=== PATIENT | male | born 1945 | race Caucasian/White ===

== ENCOUNTER 2020-07-11 14:01 | Inpatient (IN) ==
--- NOTE | 2020-07-11 14:26 | Emergency Department Note ---
Impression & Plan Hypoxia, Small cell lung 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, Atrial fibrillation, Hypotension, Elevated lactic acid level, Elevated brain natriuretic peptide (BNP) level ED Provider Note NAME: RHIANNA [id number] CRUTHKATT AGE: 75 SEX: M ARRIVES VIA: Ambulance INFORMANT: Patient, ED PROVIDER(S): Kris Plummer MD CHIEF COMPLAINT: Weakness, fall PLAN: Disposition: Admit MEDICAL DECISION MAKING: The patient is a pleasant 75-year-old gentleman, current inmate at [facility] with a past medical history of atrial fibrillation on Coumadin, COPD, diabetes, hyperlipidemia, schizophrenia, SCLC diagnosed on 05/28/2020 being treated with cisplatin/etoposide who presents emergency department for evaluation of worsening shortness of breath, generalized weakness, fatigue over the past several days with recurrent falls in his cell that happened today in the setting of having his last chemotherapy session on Wednesday. He denies any fevers, chills, vomiting, diarrhea, urinary symptoms. He reports he has a mild cough which is typical for what he has had recently. He denies any known exposures to COVID-19 where he is located at [facility]. On arrival the patient is acute on chronically ill-appearing, afebrile stable vital signs. He appears clinically dry. He has scattered wheezes throughout with increased rhonchi of right lung field. Abdomen is benign. There is mild tenderness of the lateral aspect of the left hip. Full range of motion is intact however causes discomfort. EKG demonstrates atrial fibrillation with frequent V paced complexes without overt acute ischemia. Chest x-ray demonstrates the patient's known 7 cm right infrahilar mass. WBC 11.8, nonspecific. ANC is 10.8. There is mild lymphopenia at 0.86. H/H 13.3/30.5 approximate 2 prior range of values. INR is slightly subtherapeutic at 1.9. VBG is unremarkable. Chemistry without metabolic acidosis. BUN/creatinine> 20 consistent with the patient's clinically dry appearance. Her lactate is 2.3. Phosphorus 2.3 and electrolytes otherwise unremarkable. Total bilirubin 1.7 with direct bilirubin 0.4, nonspecific given the patient has no abdominal pain. Troponin negative/undetectable. Troponin negative/undetectable. BNP 10 K, without prior for comparison and of unclear significance in the setting of the patient's A. fib and lung cancer. Lipase within normal limits. Procalcitonin<0.05 making sepsis less likely. COVID-19 RNA, NAAT test was negative. CTA of the chest was performed and was negative for PE. There are no focal infiltrates. CT of the abdomen pelvis demonstrates enlargement of pancreatic cystic lesion suggestive of neoplasm. On reevaluation the patient was reporting chest pain when he was still lying supine from his CT scan but this improved when he was set up. I performed a limited bedside cardiac ultrasound which was severely limited due to suboptimal views and mostly nondiagnostic. There was no overt pericardial fluid. IVC with >50% respiratory variability, which was after 1 L IV fluid hydration during his ED observation, which given the patient's presentation suggests a component of intravascular depletion. However, given the patient's elevated BNP and CT findings, which demonstrated reflux of contrast in the IVC and hepatic veins suggestive of cardiac dysfunction, suspicion for possible component of new heart failure/cardiomyopathy. Moreover the patient continued to appear dyspneic with minimal exertion and would desaturate to 87-88% and so was placed on 2 L nasal cannula. The patient's blood pressure did stabilize s ubsequently 100-120s/60-80s. Patient is agreeable with plan for admission for further management/evaluation. Case was discussed with Dr. Gardiner, [facility] hospitalist, who will evaluate the patient for admission. Triage Nursing notes reviewed and agree them. Prior medical records reviewed Vital Signs: reviewed and remarkable for hypotension. Differential diagnosis: Reactive airway disease, pneumonia, pneumothorax, COPD, CHF, infections, cardiac ischemia, pulmonary embolism, musculoskeletal, gastrointestinal, as well as ot her pathologies. ER treatment provided: Infection, dehydration, metabolic abnormality, hypo/hyperglycemia, electrolyte disturbance, anemia, hypoxia, cardiac sources, intracerebral event, toxicologic, neurologic, as well as other pathologies. Diagnostics interpreted by me: ECG: Atrial fibrillation, 85 bpm, frequent V paced complexes, no overt acute ischemia. Cardiac Monitoring: An order for continuous cardiac monitoring was placed and demonstrated Atrial fibrillation, 85 bpm, frequent V paced complexes. Laboratory studies: See below Imaging studies: XR chest 1V portable CLINICAL HISTORY: SEPSIS COMPARISON STUDY: 05/10/2020 FINDINGS: The heart is normal in size. There is a left subclavian dual-chamber central venous pacemaker present.[There is a 7 cm right infrahilar mass, consistent with the patient's known neoplasm. There is no acute parenchymal consolidation. There is no failure. There are no pleural effusions. IMPRESSION: 1. 7 cm right infrahilar mass, consistent with neoplasm. --- CT ANGIOGRAM OF THE CHEST CLINICAL HISTORY: Sepsis. COMPARISON STUDY: Chest x-ray dated 07/11/2020. Chest CT scans dated 06/10/2020 and 02/22/2020. TECHNIQUE: Following the IV administration of 120 cc of Optiray 320, CT angiogram of the chest was performed from the upper abdomen to the thoracic inlet utilizing the pulmonary embolus protocol. Images are reviewed in the axial, sagittal, and coronal planes. 3-D MIPS images are created and assessed. IV contrast was administered without complication. A dose lowering technique was utilized adhering to the principles of ALARA. FINDINGS: Thyroid: Imaged portions of the thyroid gland are normal in size and attenuation. Thoracic aorta: There is atherosclerotic calcification of the thoracic aorta, which is normal in caliber and demonstrates standard 3-vessel arch anatomy. No dissection is seen. Pulmonary vasculature: The pulmonary trunk is normal in caliber. There are no filling defects identified in main, lobar, or segmental pulmonary branches to suggest pulmonary embolus. Heart: A 2-lead cardiac pacemaker is present in the left chest wall. The heart is normal in size and without pericardial effusion. The coronary arteries are densely calcified. Reflux of contrast in the IVC and hepatic veins suggests cardiac dysfunction. Lungs and pleural spaces: Advanced emphysematous change is similar to previous. There is no airspace consolidation typical for pneumonia or pleural effusion. A mass in the infrahilar right lower lobe is similar in appearance to 06/10/2020 examination. This measures 6.1 x 7.0 x 6.1 cm. This encases and occludes several right lower lobe bronchi. Postobstructive consolidation is seen in the superior segment right lower lobe. Minimal secretions are noted in the distal trachea. Mild diffuse peribronchial thickening is observed. A 3 mm pleural-based nodule in the right middle lobe on image #115 is unchanged. Mediastinum: Enlarged right subcarinal node has increased in size from previous, measuring 5.1 x 4.2 cm. A precarinal node on image #199 measures 1.7 cm in short axis. [place]: There is right hilar adenopathy. A node on image #187 measures 2.8 x 2.5 cm. There are also mildly enlarged right infrahilar lymph nodes. No left hilar adenopathy is seen. Axillae: There is no axillary lymphadenopathy. Upper abdomen: Partially visualized upper abdominal viscera is within normal limits. Skeletal structures: The skeletal structures are osteopenic. Compression deformities of T12 and L1 are similar to previous. Paravertebral edema suggests that these are subacute. No lytic or blastic bony lesions are seen. Soft tissues: Gynecomastia is noted. IMPRESSION: 1. There is no evidence of pulmonary embolus in the main, lobar, or segmental pulmonary arteries. 2. There is no airspace consolidation typical for pneumonia or pleural effusion. 3. Advanced emphysema and a right lower lobe lung mass are similar in appearance to the 06/10/2020 examination. 4. Mediastinal and right hilar adenopathy are again noted and consistent with fercho metastatic disease. 5. Compression fractures of T12 and L1 are similar in appearance to previous. Paravertebral edema suggests that these are subacute. Clinical correlation will be required. 5. Additional findings as above. -- CT abd pelvis IV con only CLINICAL HISTORY: Lung carcinoma. Abdominal pain. Trauma. COMPARISON STUDY: 06/10/2020 TECHNIQUE: The patient was scanned in a dynamic helical fashion during intravenous and ministration 120 cc of Optiray 320 A dose lowering technique was utilized adhering to the principles of ALARA. CT DOSE: 887.60 mGy.cm FINDINGS: Lower chest: There is pulmonary emphysema. There is basilar atelectasis. There are no significant pleural effusions. Liver: There is a stable 4 mm right hepatic lobe hypodensity, likely representing a cyst. Gallbladder: Unremarkable. Spleen: Normal in size and attenuation. Pancreas: There is persistent pancreatic ductal dilatation. There is a multicystic 37 mm pancreatic head lesion, similar to the preceding study. Adrenal glands: Unremarkable. Kidneys: There is symmetric renal cortical enhancement. The kidneys are normal in size without hydronephrosis. Bowel: There is moderate fecal retention. There are nondilated fluid-filled small bowel loops. There are no transition zones to indicate bowel obstruction. There is no evidence of acute diverticulitis. By history the appendix is surgically absent. Peritoneum: There is no intraperitoneal free air or abdominal ascites. Vasculature: The abdominal aorta is normal in course and caliber. There are moderate aortoiliac atheromatous changes. Adenopathy: None. Pelvic viscera: There is mild bladder distention. Skeletal structures: There is a stable sclerotic focus involving the cecal aspect of the right SI joint. Degenerative changes are present within the spine. T12 and L1 compression fractures are redemonstrated. IMPRESSION: 1. Slight interval enlargement in the size of a 37 mm septated cystic lesion involving the pancreatic head with associated pancreatic ductal dilatation. 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 Further workup is advocated. 2. No evidence of bowel obstruction. No evidence of free air 3. Moderate fecal retention 4. No evidence of intra-abdominal or pelvic metastatic disease 5. Redemonstration of T12 and L1 vertebral body compression fractures Consultation(s): Case was discussed with Dr. Gardiner, [facility] hospitalist, who will evaluate the patient for admission. HPI: The patient is a pleasant 75-year-old gentleman, current inmate at [facility] with a past medical history of atrial fibrillation on Coumadin, COPD, diabetes, hyperlipidemia, schizophrenia, SCLC diagnosed on 05/28/2020 being treated with cisplatin/etoposide who presents emergency department for evaluation of worsening generalized weakness, fatigue, recurrent falls in his cell that happened today in the setting of having his last chemotherapy session on Wednesday. He denies any fevers, chills, vomiting, diarrhea, urinary symptoms. He reports he has a mild cough which is typical for what he has had recently. He denies any known exposures to COVID-19 where he is located at [facility]. ROS: See above HPI for pertinent positives & negatives. A total of 10 systems reviewed and were otherwise negative. PAST MEDICAL HISTORY:See Below PAST SURGICAL HISTORY:See Below FAMILY HISTORY:See Below SOCIAL HISTORY:See Below HOME MEDICATIONS:See Below ALLERGIES:See Below VITALS:See Below PHYSICAL EXAMINATION: GENERAL: Awake, alert, acute on chronically ill-appearing, in no distress HENT: Normocephalic, atraumatic. Oropharynx with dry mucous membranes and otherwise unremarkable. EYES: Normal conjunctiva. Sclera non-icteric. NECK: Supple. No nuchal rigidity. FROM. No JVD. RESPIRATORY: Scattered wheezes throughout with increased rhonchi of right lung field. Mildly dyspneic. CARDIAC: Regular rate, normal rhythm. Extremities warm and well perfused. Pulses equal. ABDOMEN: Soft, non-distended. No tenderness to palpation. No rebound or guarding. No masses. RECTAL: Deferred. MUSCULOSKELETAL: Chest examination reveals no tenderness. The back is symmetrical on inspection without obvious abnormality. There is no CVA tenderness to palpation. No joint edema. LOWER EXTREMITIES: Calves are equal size bilaterally and non-tender. No edema. No discoloration. NEURO: Normal sensorium. No sensory or motor deficits noted. SKIN: No rash or jaundice noted. ED COURSE: Procedures: Limited Point of Care Cardiac Ultrasound performed by me: Indication: Shortness of breath, hypotension. Findings: Limited echocardiography. Suboptimal views, mostly nondiagnostic. No overt pericardial fluid. IVC with >50% respiratory variability. Impression: Limited evaluation. No overt pericardial effusion. IVC with >50% respiratory variability. Kris Plummer MD Past Med/Surg History Medical History Anxiety Atrial fibrillation ANTICOAGULATED WITH COUMADIN Chronic obstructive pulmonary disease Hyperlipidemia Hypertension Inmate in correctional facility Nocturia Phlebitis DEEP LOWER EXTREMITY. Pulmonary mass Sick sinus syndrome s/p insertion of PPM 06/02/16 Syncope Implantation of dual-chamber [employer] pacemaker 06/02/2016 Surgical History History of appendectomy History of tonsillectomy Status post biventricular cardiac pacemaker insertion 2015. Has followed with Dr. Calle. Social History Smoking Status: Current every day smoker Age Started Using Tobacco: 11; Age Quit Using Tobacco: 55; packs per day: 1; Years Smoked: 44; Cigarettes Per Day: 20; Number of Years Since Quit: 20; Second Hand Exposure: Yes; Hx Alcohol Use: No Hx Substance Use: No Preferred Language: Portuguese Visual Impairment: No Limitations Hearing Ability: Normal Video Producer Required: No Beliefs That Will Affect Care: None marital status: Single Current Living Situation: Other Current Living Situation Comment: [facility] inmate current occupational status: unemployed Feels Safe at Home: Yes caffeine: No during the past year weight has: remained stable Dental Care, Regularly: No Seatbelt Use: always Sunscreen Use: No Assistive Devices: Denture - Upper, Denture - Lower and Glasses Allergies Allergies Allergy/AdvReac Type Severity Reaction Status Date / Time No Known Allergies Allergy Verified 07/11/20 18:10 Home Meds Home Medications Medication Instructions Recorded Confirmed Alvesco 2 puff INHALATION BID 05/09/20 07/11/20 Senna Plus 2 tab-cap PO DAILY 05/09/20 07/11/20 Spiriva with HandiHaler 1 cap INHALATION DAILY 05/09/20 07/11/20 atorvastatin 20 mg PO HS 05/09/20 07/11/20 benztropine 1 mg PO DAILY 05/09/20 07/11/20 haloperidol 1 mg PO BID 05/09/20 07/11/20 haloperidol 2 mg PO BID 05/09/20 07/11/20 hydroxyzine HCl 25 mg PO BID 05/09/20 07/11/20 levalbuterol tartrate [Xopenex HFA] 2 inh INHALATION QID PRN 05/09/20 07/11/20 montelukast 10 mg PO DAILY 05/09/20 07/11/20 propranolol 40 mg PO BID 05/09/20 07/11/20 tamsulosin 0.4 mg PO HS 05/09/20 07/11/20 warfarin 2 mg tablet 2 mg PO DAILY 07/08/20 07/11/20 Results & Data (ED) Vital Signs Vital Signs - 24 hr 07/11/20 14:11 07/11/20 14:22 07/11/20 14:30 Temperature 36.9 C Temperature Source Oral Pulse Rate 89 91 H 90 Pulse Rate from SpO2 Sensor 76 83 Respiratory Rate 18 11 L 13 Respiratory Effort / Characteristics Non-Labored Spontaneous Respiratory Depth Normal Blood Pressure 86/65 L 90/65 L 91/71 L Blood Pressure Mean 72 68 76 Pulse Oximetry 95 92 94 Oxygen Delivery Method Room Air Oxygen Flow Rate Sepsis Recent Fever Within 48 Hours No Sepsis New/Unexplained Change in Mental Status No Sepsis Action Taken by Nursing No Action Required Oxygen Flow Rate - Titration Pulse Oximetry Post Tiitration 07/11/20 14:45 07/11/20 15:00 07/11/20 15:04 Temperature Temperature Source Pulse Rate 93 H 95 H Pulse Rate from SpO2 Sensor 86 86 Respiratory Rate 18 13 Respiratory Effort / Characteristics Non-Labored Spontaneous Respiratory Depth Blood Pressure 96/70 L 96/75 L Blood Pressure Mean 81 77 Pulse Oximetry 94 95 Oxygen Delivery Method Room Air Oxygen Flow Rate Sepsis Recent Fever Within 48 Hours Sepsis New/Unexplained Change in Mental Status Sepsis Action Taken by Nursing Oxygen Flow Rate - Titration Pulse Oximetry Post Tiitration 07/11/20 15:15 07/11/20 15:30 07/11/20 15:45 Temperature Temperature Source Pulse Rate 108 H 73 72 Pulse Rate from SpO2 Sensor 95 H 72 73 Respiratory Rate 13 20 13 Respiratory Effort / Characteristics Non-Labored Spontaneous Respiratory Depth Blood Pressure 90/68 L 108/69 95/69 L Blood Pressure Mean 78 88 74 Pulse Oximetry 93 94 94 Oxygen Delivery Method Room Air Room Air Room Air Oxygen Flow Rate Sepsis Recent Fever Within 48 Hours Sepsis New/Unexplained Change in Mental Status Sepsis Action Taken by Nursing Oxygen Flow Rate - Titration Pulse Oximetry Post Tiitration 07/11/20 16:00 07/11/20 16:15 07/11/20 16:30 Temperature Temperature Source Pulse Rate 73 77 76 Pulse Rate from SpO2 Sensor 71 76 77 Respiratory Rate 13 13 14 Respiratory Effort / Characteristics Non-Labored Spontaneous Non-Labored Spontaneous Respiratory Depth Blood Pressure 102/69 97/59 L 90/69 L Blood Pressure Mean 76 67 75 Pulse Oximetry 96 95 94 Oxygen Delivery Method Room Air Room Air Room Air Oxygen Flow Rate Sepsis Recent Fever Within 48 Hours Sepsis New/Unexplained Change in Mental Status Sepsis Action Taken by Nursing Oxygen Flow Rate - Titration Pulse Oximetry Post Tiitration 07/11/20 17:00 07/11/20 17:17 07/11/20 17:30 Temperature Temperature Source Pulse Rate 83 80 81 Pulse Rate from SpO2 Sensor 84 81 82 Respiratory Rate 10 L 14 20 Respiratory Effort / Characteristics Non-Labored Spontaneous Non-Labored Spontaneous Respiratory Depth Blood Pressure 103/71 101/66 105/73 Blood Pressure Mean 77 73 85 Pulse Oximetry 95 93 Oxygen Delivery Method Room Air Room Air Room Air Oxygen Flow Rate Sepsis Recent Fever Within 48 Hours Sepsis New/Unexplained Change in Mental Status Sepsis Action Taken by Nursing Oxygen Flow Rate - Titration Pulse Oximetry Post Tiitration 07/11/20 17:44 07/11/20 17:45 07/11/20 18:00 Temperature Temperature Source Pulse Rate 79 88 Pulse Rate from SpO2 Sensor 80 85 Respiratory Rate 14 22 Respiratory Effort / Characteristics Non-Labored Spontaneous Respiratory Depth Blood Pressure 114/79 124/83 Blood Pressure Mean 89 97 Pulse Oximetry 87 L 98 Oxygen Delivery Method Nasal Cannula Nasal Cannula Nasal Cannula Oxygen Flow Rate 0 2 2 Sepsis Recent Fever Within 48 Hours Sepsis New/Unexplained Change in Mental Status Sepsis Action Taken by Nursing Oxygen Flow Rate - Titration 2 Pulse Oximetry Post Tiitration 94 07/11/20 18:15 07/11/20 18:30 07/11/20 18:45 Temperature Temperature Source Pulse Rate 81 82 81 Pulse Rate from SpO2 Sensor 82 81 75 Respiratory Rate 15 14 15 Respiratory Effort / Characteristics Non-Labored Spontaneous Respiratory Depth Blood Pressure 99/72 L 97/77 L 102/76 Blood Pressure Mean 76 88 87 Pulse Oximetry 99 98 98 Oxygen Delivery Method Nasal Cannula Nasal Cannula Nasal Cannula Oxygen Flow Rate 2 2 2 Sepsis Recent Fever Within 48 Hours Sepsis New/Unexplained Change in Mental Status Sepsis Action Taken by Nursing Oxygen Flow Rate - Titration Pulse Oximetry Post Tiitration 07/11/20 19:00 07/11/20 19:15 07/11/20 19:30 Temperature Temperature Source Pulse Rate 78 77 82 Pulse Rate from SpO2 Sensor 80 77 81 Respiratory Rate 14 15 12 Respiratory Effort / Characteristics Non-Labored Spontaneous Non-Labored Spontaneous Respiratory Depth Blood Pressure 113/79 105/77 113/79 Blood Pressure Mean 83 87 90 Pulse Oximetry 97 97 93 Oxygen Delivery Method Nasal Cannula Nasal Cannula Room Air Oxygen Flow Rate 2 2 Sepsis Recent Fever Within 48 Hours Sepsis New/Unexplained Change in Mental Status Sepsis Action Taken by Nursing Oxygen Flow Rate - Titration Pulse Oximetry Post Tiitration 07/11/20 19:45 07/11/20 20:00 07/11/20 20:15 Temperature Temperature Source Pulse Rate 79 86 78 Pulse Rate from SpO2 Sensor 80 83 78 Respiratory Rate 14 12 15 Respiratory Effort / Characteristics Non-Labored Spontaneous Respiratory Depth Blood Pressure 111/75 111/77 116/79 Blood Pressure Mean 81 87 95 Pulse Oximetry 92 91 91 Oxygen Delivery Method Room Air Room Air Room Air Oxygen Flow Rate Sepsis Recent Fever Within 48 Hours Sepsis New/Unexplained Change in Mental Status Sepsis Action Taken by Nursing Oxygen Flow Rate - Titration Pulse Oximetry Post Tiitration 07/11/20 20:30 07/11/20 21:00 Temperature Temperature Source Pulse Rate Pulse Rate from SpO2 Sensor Respiratory Rate Respiratory Effort / Characteristics Non-Labored Spontaneous Non-Labored Spontaneous Respiratory Depth Blood Pressure Blood Pressure Mean Pulse Oximetry Oxygen Delivery Method Room Air Room Air Oxygen Flow Rate Sepsis Recent Fever Within 48 Hours Sepsis New/Unexplained Change in Mental Status Sepsis Action Taken by Nursing Oxygen Flow Rate - Titration Pulse Oximetry Post Tiitration Laboratory Data Attestation: I reviewed the patient's lab results. Result diagrams: 07/11/20 14:10 07/11/20 14:10 Lab Results 1207/11/20 07/11/20 Range/Units 14:10 14:10 14:10 WBC 11.88 H (4.8-10.8) K/uL RBC 4.43 L (4.7-6.1) M/uL Hgb 13.3 L (14.0-18.0) g/dL Hct 38.5 L (42-52) % MCV 86.9 (80-100) fL MCH 30.0 (25-34) pg MCHC 34.5 (32-36) g/dL RDW Std Deviation 42.2 (36.4-46.3) fL RDW Coeff of Ivis 13.1 (11.5-14.5) % Plt Count 191 (130-400) K/uL MPV 10.4 (7.4-10.4) fL Immature Gran % (Auto) 0.2 % Neut % (Auto) 91.2 % Lymph % (Auto) 7.2 % [place] % (Auto) 1.0 % Eos % (Auto) 0.4 % Baso % (Auto) 0.0 % Neut # (Auto) 10.83 H (1.4-6.5) K/uL Lymph # (Auto) 0.86 L (1.2-3.4) K/uL [place] # (Auto) 0.12 (0.11-0.59) K/uL Eos # (Auto) 0.05 (0-0.5) K/uL Baso # (Auto) 0.00 (0-0.2) K/uL Immature Gran # (Auto) 0.02 (0.00-0.02) K/uL PT 19.4 H (9.0-12.0) Seconds INR 1.9 H (0.9-1.1) APTT 31.3 H (21.0-31.0) Seconds PTT Ratio 1.1 VBG pH (7.36-7.41) VBG pCO2 (38-50) mmHg VBG pO2 mmHg VBG HCO3 mmol/L VBG O2 Saturation % VBG Base Excess mEq/L Barometric Pressure mm/Hg Sodium 132 L (136-145) mmol/L Potassium 3.6 (3.5-5.1) mmol/L Chloride 96 L (98-107) mmol/L Carbon Dioxide 29 (21-32) mmol/L Anion Gap 7.0 (3-11) BUN 26 H (7-18) mg/dl Creatinine 1.08 (0.6-1.4) mg/dl Est Cr Clr Drug Dosing 67.9 ml/min Est GFR ( Amer) 78.5 Est GFR (Non-Af Amer) 67.7 BUN/Creatinine Ratio 24.1 H (10-20) Glucose 95 (70-99) mg/dl Lactate (0.4-2.0) mmol/L Calcium 8.5 (8.5-10.1) mg/dl Phosphorus 2.3 L (2.5-4.9) mg/dl Magnesium 2.0 (1.8-2.4) mg/dl Total Bilirubin 1.7 H (0.2-1) mg/dl Direct Bilirubin 0.4 H (0-0.2) mg/dl AST 22 (15-37) U/L ALT 24 (12-78) U/L Alkaline Phosphatase 106 (45-117) U/L Total Creatine Kinase 201 (39-308) U/L Troponin I < 0.015 (0-0.045) ng/ml NT-Pro-B Natriuret Pep 31433 H (0-900) pg/ml Total Protein 6.6 (6.4-8.2) gm/dl Albumin 3.4 (3.4-5.0) gm/dl Globulin 3.2 (2.5-4.0) gm/dl Albumin/Globulin Ratio 1.1 (0.9-2) Lipase 205 (73-393) U/L Procalcitonin (0-0.5) ng/ml COVID-19 Eval Order COVID-19 PCR (Negative) Influenza Type A (PCR) (Neg) Influenza Type B (PCR) (Neg) RSV (RT-PCR) (Neg) SARS-CoV-2, RNA, NAAT (NEGATIVE) 07/11/20 07/11/20 07/11/20 Range/Units 14:10 15:28 15:28 WBC (4.8-10.8) K/uL RBC (4.7-6.1) M/uL Hgb (14.0-18.0) g/dL Hct (42-52) % MCV (80-100) fL MCH (25-34) pg MCHC (32-36) g/dL RDW Std Deviation (36.4-46.3) fL RDW Coeff of Ivis (11.5-14.5) % Plt Count (130-400) K/uL MPV (7.4-10.4) fL Immature Gran % (Auto) % Neut % (Auto) % Lymph % (Auto) % [place] % (Auto) % Eos % (Auto) % Baso % (Auto) % Neut # (Auto) (1.4-6.5) K/uL Lymph # (Auto) (1.2-3.4) K/uL [place] # (Auto) (0.11-0.59) K/uL Eos # (Auto) (0-0.5) K/uL Baso # (Auto) (0-0.2) K/uL Immature Gran # (Auto) (0.00-0.02) K/uL PT (9.0-12.0) Seconds INR (0.9-1.1) APTT (21.0-31.0) Seconds PTT Ratio VBG pH 7.36 (7.36-7.41) VBG pCO2 48 (38-50) mmHg VBG pO2 25 mmHg VBG HCO3 26 mmol/L VBG O2 Saturation < 60.0 % VBG Base Excess 0.4 mEq/L Barometric Pressure 737.7 mm/Hg Sodium (136-145) mmol/L Potassium (3.5-5.1) mmol/L Chloride (98-107) mmol/L Carbon Dioxide (21-32) mmol/L Anion Gap (3-11) BUN (7-18) mg/dl Creatinine (0.6-1.4) mg/dl Est Cr Clr Drug Dosing ml/min Est GFR ( Amer) Est GFR (Non-Af Amer) BUN/Creatinine Ratio (10-20) Glucose (70-99) mg/dl Lactate 2.3 H* (0.4-2.0) mmol/L Calcium (8.5-10.1) mg/dl Phosphorus (2.5-4.9) mg/dl Magnesium (1.8-2.4) mg/dl Total Bilirubin (0.2-1) mg/dl Direct Bilirubin (0-0.2) mg/dl AST (15-37) U/L ALT (12-78) U/L Alkaline Phosphatase (45-117) U/L Total Creatine Kinase (39-308) U/L Troponin I (0-0.045) ng/ml NT-Pro-B Natriuret Pep (0-900) pg/ml Total Protein (6.4-8.2) gm/dl Albumin (3.4-5.0) gm/dl Globulin (2.5-4.0) gm/dl Albumin/Globulin Ratio (0.9-2) Lipase (73-393) U/L Procalcitonin < 0.05 (0-0.5) ng/ml COVID-19 Eval Order COVID-19 PCR (Negative) Influenza Type A (PCR) (Neg) Influenza Type B (PCR) (Neg) RSV (RT-PCR) (Neg) SARS-CoV-2, RNA, NAAT (NEGATIVE) 07/11/20 07/11/20 07/11/20 Range/Units 15:53 15:53 17:14 WBC (4.8-10.8) K/uL RBC (4.7-6.1) M/uL Hgb (14.0-18.0) g/dL Hct (42-52) % MCV (80-100) fL MCH (25-34) pg MCHC (32-36) g/dL RDW Std Deviation (36.4-46.3) fL RDW Coeff of Ivis (11.5-14.5) % Plt Count (130-400) K/uL MPV (7.4-10.4) fL Immature Gran % (Auto) % Neut % (Auto) % Lymph % (Auto) % [place] % (Auto) % Eos % (Auto) % Baso % (Auto) % Neut # (Auto) (1.4-6.5) K/uL Lymph # (Auto) (1.2-3.4) K/uL [place] # (Auto) (0.11-0.59) K/uL Eos # (Auto) (0-0.5) K/uL Baso # (Auto) (0-0.2) K/uL Immature Gran # (Auto) (0.00-0.02) K/uL PT (9.0-12.0) Seconds INR (0.9-1.1) APTT (21.0-31.0) Seconds PTT Ratio VBG pH (7.36-7.41) VBG pCO2 (38-50) mmHg VBG pO2 mmHg VBG HCO3 mmol/L VBG O2 Saturation % VBG Base Excess mEq/L Barometric Pressure mm/Hg Sodium (136-145) mmol/L Potassium (3.5-5.1) mmol/L Chloride (98-107) mmol/L Carbon Dioxide (21-32) mmol/L Anion Gap (3-11) BUN (7-18) mg/dl Creatinine (0.6-1.4) mg/dl Est Cr Clr Drug Dosing ml/min Est GFR ( Amer) Est GFR (Non-Af Amer) BUN/Creatinine Ratio (10-20) Glucose (70-99) mg/dl Lactate 1.8 (0.4-2.0) mmol/L Calcium (8.5-10.1) mg/dl Phosphorus (2.5-4.9) mg/dl Magnesium (1.8-2.4) mg/dl Total Bilirubin (0.2-1) mg/dl Direct Bilirubin (0-0.2) mg/dl AST (15-37) U/L ALT (12-78) U/L Alkaline Phosphatase (45-117) U/L Total Creatine Kinase (39-308) U/L Troponin I (0-0.045) ng/ml NT-Pro-B Natriuret Pep (0-900) pg/ml Total Protein (6.4-8.2) gm/dl Albumin (3.4-5.0) gm/dl Globulin (2.5-4.0) gm/dl Albumin/Globulin Ratio (0.9-2) Lipase (73-393) U/L Procalcitonin (0-0.5) ng/ml COVID-19 Eval [facility] (Negative) Influenza Type A (PCR) (Neg) Influenza Type B (PCR) (Neg) RSV (RT-PCR) (Neg) SARS-CoV-2, RNA, NAAT NEGATIVE (NEGATIVE) 07/11/20 07/11/20 Range/Units 19:26 19:26 WBC (4.8-10.8) K/uL RBC (4.7-6.1) M/uL Hgb (14.0-18.0) g/dL Hct (42-52) % MCV (80-100) fL MCH (25-34) pg MCHC (32-36) g/dL RDW Std Deviation (36.4-46.3) fL RDW Coeff of Ivis (11.5-14.5) % Plt Count (130-400) K/uL MPV (7.4-10.4) fL Immature Gran % (Auto) % Neut % (Auto) % Lymph % (Auto) % [place] % (Auto) % Eos % (Auto) % Baso % (Auto) % Neut # (Auto) (1.4-6.5) K/uL Lymph # (Auto) (1.2-3.4) K/uL [place] # (Auto) (0.11-0.59) K/uL Eos # (Auto) (0-0.5) K/uL Baso # (Auto) (0-0.2) K/uL Immature Gran # (Auto) (0.00-0.02) K/uL PT (9.0-12.0) Seconds INR (0.9-1.1) APTT (21.0-31.0) Seconds PTT Ratio VBG pH (7.36-7.41) VBG pCO2 (38-50) mmHg VBG pO2 mmHg VBG HCO3 mmol/L VBG O2 Saturation % VBG Base Excess mEq/L Barometric Pressure mm/Hg Sodium (136-145) mmol/L Potassium (3.5-5.1) mmol/L Chloride (98-107) mmol/L Carbon Dioxide (21-32) mmol/L Anion Gap (3-11) BUN (7-18) mg/dl Creatinine (0.6-1.4) mg/dl Est Cr Clr Drug Dosing ml/min Est GFR ( Amer) Est GFR (Non-Af Amer) BUN/Creatinine Ratio (10-20) Glucose (70-99) mg/dl Lactate (0.4-2.0) mmol/L Calcium (8.5-10.1) mg/dl Phosphorus (2.5-4.9) mg/dl Magnesium (1.8-2.4) mg/dl Total Bilirubin (0.2-1) mg/dl Direct Bilirubin (0-0.2) mg/dl AST (15-37) U/L ALT (12-78) U/L Alkaline Phosphatase (45-117) U/L Total Creatine Kinase (39-308) U/L Troponin I (0-0.045) ng/ml NT-Pro-B Natriuret Pep (0-900) pg/ml Total Protein (6.4-8.2) gm/dl Albumin (3.4-5.0) gm/dl Globulin (2.5-4.0) gm/dl Albumin/Globulin Ratio (0.9-2) Lipase (73-393) U/L Procalcitonin (0-0.5) ng/ml COVID-19 Eval Order [facility] at [facility] COVID-19 PCR NEGATIVE (Negative) Influenza Type A (PCR) Negative (Neg) Influenza Type B (PCR) Negative (Neg) RSV (RT-PCR) Negative (Neg) SARS-CoV-2, RNA, NAAT (NEGATIVE) Administered Medications Discontinued Medications Furosemide (Furosemide 40 Mg/4 Ml Vial) 20 mg IV NOW STA Stop: 07/11/20 20:50 Last Admin: 07/11/20 21:10 Dose: 20 mg Documented by: [id number] Sodium Chloride (Nss 1000ml) 1,000 mls @ 999 mls/hr IV .Q1H1M ONE Stop: 07/11/20 15:56 Last Infusion: 07/11/20 15:51 Dose: 0 mls/hr Documented by: [id number] Admin: 07/11/20 14:50 Dose: 999 mls/hr Documented by: [id number] Ioversol (Optiray 320 125ml) 120 ml IV ONCE ONE Stop: 07/11/20 16:49 Last Admin: 07/11/20 16:51 Dose: 120 ml Documented by: [id number] Discharge Plan Visit Data Chief Complaint: Weakness ED Provider: Kris Plummer Discharge Problem: Hypoxia, Small cell lung 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, Atrial fibrillation, Hypotension, Elevated lactic acid level, Elevated brain natriuretic peptide (BNP) level Patient Disposition: Home - Self-Care Forms Stand Alone Forms: Work/School Release (ED), [facility], [facility] Emergency Department, Important Visit Information Prescriptions Prescriptions: No Action warfarin 2 mg tablet 2 mg PO DAILY RF: 0 atorvastatin 20 mg Tablet 20 mg PO HS RF: 0 haloperidol 1 mg Tablet 1 mg PO BID RF: 0 propranolol 40 mg Tablet 40 mg PO BID RF: 0 tamsulosin 0.4 mg Capsule 0.4 mg PO HS RF: 0 benztropine 1 mg Tablet 1 mg PO DAILY RF: 0 montelukast 10 mg Tablet 10 mg PO DAILY RF: 0 hydroxyzine HCl 25 mg Tablet 25 mg PO BID RF: 0 haloperidol 2 mg Tablet 2 mg PO BID RF: 0 Spiriva with HandiHaler 18 mcg Capsule, W/Inhalation Device 1 cap INHALATION DAILY RF: 0 levalbuterol tartrate [Xopenex HFA] 45 mcg/actuation Hfa Aerosol Inhaler 2 inh INHALATION QID PRN (Reason: Shortness Of Breath) RF: 0 Alvesco 80 mcg/actuation Hfa Aerosol Inhaler 2 puff INHALATION BID RF: 0 Senna Plus 8.6-50 mg Capsule 2 tab-cap PO DAILY RF: 0 Referrals Referrals: Clau OLGUIN [Primary Care Provider] - Discharge Problem: Atrial fibrillation Qualifiers: Atrial fibrillation type: longstanding persistent Qualified Code(s): I48.11 - Longstanding persistent atrial fibrillation Hypotension Qualifiers: Hypotension type: unspecified hypotension type Qualified Code(s): I95.9 - Hypotension, unspecified
[2020-07-11] MEDS ORDERED: SODIUM CHLORIDE 0.9% 1000ML 1,000 ML IV ONE (14:56)
[2020-07-11 15:16] LABS: Alanine Aminotransferase 24 U/L (12-78); Albumin Level 3.4 gm/dl (3.4-5.0); Aspartate Aminotransferase 22 U/L (15-37); BUN Creatinine Ratio 24.1 (10-20); Bilirubin Direct 0.4 mg/dl (0-0.2); Blood Urea Nitrogen 26 mg/dl (7-18); Calcium 8.5 mg/dl (8.5-10.1); Carbon Dioxide 29 mmol/L (21-32); Chloride 96 mmol/L (98-107); Creatinine Clr Calc Pharmacy 67.9 ml/min; Est GFR (African American) 78.5; Est GFR (Non-African American) 67.7; Glucose 95 mg/dl (70-99); Lipase 205 U/L (73-393); Potassium 3.6 mmol/L (3.5-5.1); Sodium 132 mmol/L (136-145)
[2020-07-11 15:19] LABS: Albumin Globulin Ratio 1.1 (0.9-2); Alkaline Phosphatase 106 U/L (45-117); Bilirubin,Total 1.7 mg/dl (0.2-1); Creatine Kinase 201 U/L (39-308); Globulin 3.2 gm/dl (2.5-4.0); NT Pro B Type Natriuretic Pept 10782 pg/ml (0-900); Phosphorus 2.3 mg/dl (2.5-4.9); Total Protein 6.6 gm/dl (6.4-8.2); Troponin I < 0.015 ng/ml (0-0.045)
[2020-07-11 15:30] LABS: INR 1.9 (0.9-1.1); Partial Thromboplastin Ratio 1.1; Partial Thromboplastin Time 31.3 Seconds (21.0-31.0); Prothrombin Time 19.4 Seconds (9.0-12.0)
[2020-07-11 15:42] LABS: Base Excess VBG 0.4 mEq/L; HCO3 VBG 26 mmol/L; PCO2 VBG 48 mmHg (38-50); PO2 VBG 25 mmHg; pH VBG 7.36 (7.36-7.41)
[2020-07-11 16:01] LABS: Oxygen Saturation VBG < 60.0 %
--- NOTE | 2020-07-11 16:43 | XRay Report ---
XR chest 1V portable CLINICAL HISTORY: SEPSIS COMPARISON STUDY: 05/10/2020 FINDINGS: The heart is normal in size. There is a left subclavian dual-chamber central venous pacemak er present.[There is a 7 cm right infrahilar mass, consistent with the patient's known neoplasm. Ther e is no acute parenchymal consolidation. There is no failure. There are no pleural effusions. IMPRESSION: 1. 7 cm right infrahilar mass, consistent with neoplasm. ACT 112: Negative or not required by law. Electronically signed by: Faizan Carbajal M.D. 07/11/2020 4:42 PM
[2020-07-11] MEDS ORDERED: OPTIRAY 320 125ml IV ONE (16:48)
[2020-07-11 16:51] LABS: Eosinophils # (auto) 0.05 K/uL (0-0.5); Eosinophils % (auto) 0.4 %; Hematocrit (blood only) 38.5 % (42-52); Hemoglobin 13.3 g/dL (14.0-18.0); Immature Granulocytes # (auto) 0.02 K/uL (0.00-0.02); Immature Granulocytes % (auto) 0.2 %; Lymphocytes # (auto) 0.86 K/uL (1.2-3.4); Lymphocytes % (auto) 7.2 %; Mean Corpuscular Hgb Conc 34.5 g/dL (32-36); Mean Corpuscular Volume 86.9 fL (80-100); Mean Platelet Volume 10.4 fL (7.4-10.4); Monocytes # (auto) 0.12 K/uL (0.11-0.59); Neutrophils # (auto) 10.83 K/uL (1.4-6.5); Neutrophils % (auto) 91.2 %; Platelet Count 191 K/uL (130-400); RDW Coefficient of Variation 13.1 % (11.5-14.5); RDW Standard Deviation 42.2 fL (36.4-46.3); Red Blood Count 4.43 M/uL (4.7-6.1); White Blood Count 11.88 K/uL (4.8-10.8)
--- NOTE | 2020-07-11 17:11 | CT Scan Report ---
CT ANGIOGRAM OF THE CHEST CLINICAL HISTORY: Sepsis. COMPARISON STUDY: Chest x-ray dated 07/11/2020. Chest CT scans dated 06/10/2020 and 02/22/2020. TECHNIQUE: Following the IV administration of 120 cc of Optiray 320, CT angiogram of the chest was pe rformed from the upper abdomen to the thoracic inlet utilizing the pulmonary embolus protocol. Images are reviewed in the axial, sagittal, and coronal planes. 3-D MIPS images are created and assessed. I V contrast was administered without complication. A dose lowering technique was utilized adhering to the principles of ALARA. FINDINGS: Thyroid: Imaged portions of the thyroid gland are normal in size and attenuation. Thoracic aorta: There is atherosclerotic calcification of the thoracic aorta, which is normal in tony lidia and demonstrates standard 3-vessel arch anatomy. No dissection is seen. Pulmonary vasculature: The pulmonary trunk is normal in caliber. There are no filling defects identif ied in main, lobar, or segmental pulmonary branches to suggest pulmonary embolus. Heart: A 2-lead cardiac pacemaker is present in the left chest wall. The heart is normal in size and without pericardial effusion. The coronary arteries are densely calcified. Reflux of contrast in the IVC and hepatic veins suggests cardiac dysfunction. Lungs and pleural spaces: Advanced emphysematous change is similar to previous. There is no airspace consolidation typical for pneumonia or pleural effusion. A mass in the infrahilar right lower lobe is similar in appearance to 06/10/2020 examination. This measures 6.1 x 7.0 x 6.1 cm. This encases and o ccludes several right lower lobe bronchi. Postobstructive consolidation is seen in the superior segme nt right lower lobe. Minimal secretions are noted in the distal trachea. Mild diffuse peribronchial t hickening is observed. A 3 mm pleural-based nodule in the right middle lobe on image #115 is unchange d. Mediastinum: Enlarged right subcarinal node has increased in size from previous, measuring 5.1 x 4.2 cm. A precarinal node on image #199 measures 1.7 cm in short axis. [place]: There is right hilar adenopathy. A node on image #187 measures 2.8 x 2.5 cm. There are also mil dly enlarged right infrahilar lymph nodes. No left hilar adenopathy is seen. Axillae: There is no axillary lymphadenopathy. Upper abdomen: Partially visualized upper abdominal viscera is within normal limits. Skeletal structures: The skeletal structures are osteopenic. Compression deformities of T12 and L1 ar e similar to previous. Paravertebral edema suggests that these are subacute. No lytic or blastic bony lesions are seen. Soft tissues: Gynecomastia is noted. IMPRESSION: 1. There is no evidence of pulmonary embolus in the main, lobar, or segmental pulmonary arteries. 2. There is no airspace consolidation typical for pneumonia or pleural effusion. 3. Advanced emphysema and a right lower lobe lung mass are similar in appearance to the 06/10/2020 exa mination. 4. Mediastinal and right hilar adenopathy are again noted and consistent with fercho metastatic diseas e. 5. Compression fractures of T12 and L1 are similar in appearance to previous. Paravertebral edema sug gests that these are subacute. Clinical correlation will be required. 5. Additional findings as above. ACT 112: Negative or not required by law. Electronically signed by: Deangelo Thacker M.D. 07/11/2020 5:09 PM
--- NOTE | 2020-07-11 17:12 | CT Scan Report ---
CT abd pelvis IV con only CLINICAL HISTORY: Lung carcinoma. Abdominal pain. Trauma. COMPARISON STUDY: 06/10/2020 TECHNIQUE: The patient was scanned in a dynamic helical fashion during intravenous and ministration 1 20 cc of Optiray 320 A dose lowering technique was utilized adhering to the principles of ALARA. CT DOSE: 887.60 mGy.cm FINDINGS: Lower chest: There is pulmonary emphysema. There is basilar atelectasis. There are no significant ple ural effusions. Liver: There is a stable 4 mm right hepatic lobe hypodensity, likely representing a cyst. Gallbladder: Unremarkable. Spleen: Normal in size and attenuation. Pancreas: There is persistent pancreatic ductal dilatation. There is a multicystic 37 mm pancreatic h ead lesion, similar to the preceding study. Adrenal glands: Unremarkable. Kidneys: There is symmetric renal cortical enhancement. The kidneys are normal in size without hydron ephrosis. Bowel: There is moderate fecal retention. There are nondilated fluid-filled small bowel loops. There are no transition zones to indicate bowel obstruction. There is no evidence of acute diverticulitis. By history the appendix is surgically absent. Peritoneum: There is no intraperitoneal free air or abdominal ascites. Vasculature: The abdominal aorta is normal in course and caliber. There are moderate aortoiliac ather omatous changes. Adenopathy: None. Pelvic viscera: There is mild bladder distention. Skeletal structures: There is a stable sclerotic focus involving the cecal aspect of the right SI staci nt. Degenerative changes are present within the spine. T12 and L1 compression fractures are redemonst rated. IMPRESSION: 1. Slight interval enlargement in the size of a 37 mm septated cystic lesion involving the pancreatic head with associated pancreatic ductal dilatation. 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 Further workup is advocated. 2. No evidence of bowel obstruction. No evidence of free air 3. Moderate fecal retention 4. No evidence of intra-abdominal or pelvic metastatic disease 5. Redemonstration of T12 and L1 vertebral body compression fractures ACT 112: Negative or not required by law. Electronically signed by: Faizan Carbajal M.D. 07/11/2020 5:11 PM
[2020-07-11 20:38] LABS: Influenza A virus by PCR Negative (Neg); Influenza B virus by PCR Negative (Neg); RSV by PCR Negative (Neg); SARS CoV2 RNA(COVID-19) InHosp NEGATIVE (Negative)
[2020-07-11] MEDS ORDERED: FUROSEMIDE 20 MG in SYRINGE 0 ML IV ONE (20:42)
[2020-07-11] MEDS ORDERED: FUROSEMIDE 40 MG/4 ML VIAL IV STA (20:49)
[2020-07-11 21:47] LABS: Appearance Urine Clear (Clear); Bacteria Urine Automated Negative (Negative); Bilirubin Urine Negative (Negative); Blood Urine 3+ (Negative); Cast Urine Automated 0 /lpf (0-5); Color Urine Yellow; Glucose Urine UA Negative (Negative); Ketones Urine Negative (Negative); Leukocyte Esterase Urine Negative (Negative); Nitrite Urine Negative (Negative); Protein Urine Negative (Negative); RBC Urine Automated >30 /hpf (0-4); Specific Gravity Urine 1.037 (1.000-1.030); Urobilinogen Urine Negative (Negative)
[2020-07-11] MEDS ORDERED: ONDANSETRON INJ 2 MG/ML 2 ML VIAL IV PRN (23:39)
[2020-07-11] MEDS ORDERED: ACETAMINOPHEN 325 MG TAB PO PRN (23:39)
[2020-07-11] MEDS ORDERED: haloperidoL 1 MG TAB PO SCH (23:39)
[2020-07-11] MEDS ORDERED: LEVALBUTEROL TARTRATE 15 GM HFA.AER.AD INH PRN (23:39)
--- NOTE | 2020-07-11 23:43 | History & Physical Report ---
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 Patient with lung cancer currently receiving chemotherapy, last treatment this week. He reports falling x 3 while at [facility]. Denies CP/palpitations/dizziness. He denies LOC or head trauma. Complaining of some mild SOB as well as cough productive for yellow sputum, weakness. Allergies Allergy/AdvReac Type Severity Reaction Status Date / Time No Known Allergies Allergy Verified 07/11/20 18:10 Home Medications Medication Instructions Recorded Confirmed Type Alvesco 2 puff INHALATION BID 05/09/20 07/11/20 History Senna Plus 2 tab-cap PO DAILY 05/09/20 07/11/20 History Spiriva with HandiHaler 1 cap INHALATION DAILY 05/09/20 07/11/20 History atorvastatin 20 mg PO HS 05/09/20 07/11/20 History benztropine 1 mg PO DAILY 05/09/20 07/11/20 History haloperidol 1 mg PO BID 05/09/20 07/11/20 History haloperidol 2 mg PO BID 05/09/20 07/11/20 History hydroxyzine HCl 25 mg PO BID 05/09/20 07/11/20 History levalbuterol tartrate [Xopenex HFA] 2 inh INHALATION QID PRN 05/09/20 07/11/20 History montelukast 10 mg PO DAILY 05/09/20 07/11/20 History propranolol 40 mg PO BID 05/09/20 07/11/20 History tamsulosin 0.4 mg PO HS 05/09/20 07/11/20 History warfarin 2 mg tablet 2 mg PO DAILY 07/08/20 07/11/20 History Past Med/Surg History Medical History Anxiety Atrial fibrillation ANTICOAGULATED WITH COUMADIN Chronic obstructive pulmonary disease Hyperlipidemia Hypertension Inmate in correctional facility Nocturia Phlebitis DEEP LOWER EXTREMITY. Pulmonary mass Sick sinus syndrome s/p insertion of PPM 06/02/16 Syncope Implantation of dual-chamber Medtronic pacemaker 06/02/2016 Surgical History History of appendectomy History of tonsillectomy Status post biventricular cardiac pacemaker insertion 2015. Has followed with Dr. Calle. Social History Smoking Status: Current every day smoker Age Started Using Tobacco: 11; Age Quit Using Tobacco: 55; packs per day: 1; Years Smoked: 44; Cigarettes Per Day: 20; Number of Years Since Quit: 20; Second Hand Exposure: Yes; Hx Alcohol Use: No Hx Substance Use: No Preferred Language: Congolese Visual Impairment: No Limitations Hearing Ability: Normal Radiographic Technologist Required: No Beliefs That Will Affect Care: None marital status: Single Current Living Situation: Other Current Living Situation Comment: [facility] inmate current occupational status: unemployed Feels Safe at Home: Yes caffeine: No during the past year weight has: remained stable Dental Care, Regularly: No Seatbelt Use: always Sunscreen Use: No Assistive Devices: Denture - Upper, Denture - Lower and Glasses Review of Systems Review of Systems: All systems reviewed & are unremarkable except as noted in HPI & below Physical Exam Physical Exam: General: patient resting comfortably, NAD, non-toxic in appearance, AA&O x 4 Skin: warm, dry, intact, no rashes or lesions HEENT: NC/AT, PERRL, EOMI, anicteric sclera, conjunctiva without injection, external ear normal to inspection and nontender, nares patent, moist mucus membranes, dentition intact, no oropharyngeal lesions, neck supple, trachea midline, no LAD, no thyromegaly, no JVD Heart: +S1/S2, regular, no m/r/g Lungs: coarse breath sounds bilaterally with diffuse end-expiratory wheezing Abd: +BS, soft, NT/ND, no masses/organomegaly/ascites Ext: warm, 2+ pulses in UE/LE bilaterally, no clubbing/cyanosis or edema, tenderness over left hip Neuro: nonfocal, patient AA&O x 4, speech intact, no facial droop, moving all extremities on command with equal strength 5/5 Results & Data Results & Data ([facility]) Vital Signs (Past 12 Hours) Vital Signs Temp Pulse Pulse Resp BP BP Pulse Ox 07/11/20 22:41 83 19 95/64 L 93 07/11/20 22:30 85 14 90 07/11/20 22:15 86 16 91 07/11/20 22:01 94 H 26 H 137/88 07/11/20 21:45 82 15 112/75 92 07/11/20 21:30 93 H 20 134/92 90 07/11/20 21:15 88 18 124/90 07/11/20 21:00 81 13 119/78 92 07/11/20 20:45 79 19 114/76 92 07/11/20 20:30 83 18 107/76 92 07/11/20 20:15 78 15 116/79 91 07/11/20 20:00 86 12 111/77 91 07/11/20 19:45 79 14 111/75 92 07/11/20 19:30 82 12 113/79 93 07/11/20 19:15 77 15 105/77 97 07/11/20 19:00 78 14 113/79 97 07/11/20 18:45 81 15 102/76 98 07/11/20 18:30 82 14 97/77 L 98 07/11/20 18:15 81 15 99/72 L 99 07/11/20 18:00 88 22 124/83 07/11/20 17:45 79 14 114/79 98 07/11/20 17:44 87 L 07/11/20 17:30 81 20 105/73 07/11/20 17:17 80 14 101/66 93 07/11/20 17:00 83 10 L 103/71 95 07/11/20 16:30 76 14 90/69 L 94 07/11/20 16:15 77 13 97/59 L 95 12/03/20 16:00 73 13 102/69 96 07/11/20 15:45 72 13 95/69 L 94 07/11/20 15:30 73 20 108/69 94 07/11/20 15:15 108 H 13 90/68 L 93 07/11/20 15:00 95 H 13 96/75 L 95 07/11/20 14:45 93 H 18 96/70 L 94 07/11/20 14:30 90 13 91/71 L 94 07/11/20 14:22 91 H 11 L 90/65 L 92 07/11/20 14:11 36.9 C 89 18 86/65 L 95 Laboratory Results Lab Results 07/11/20 07/11/20 07/11/20 Range/Units 14:10 14:10 14:10 WBC 11.88 H (4.8-10.8) K/uL RBC 4.43 L (4.7-6.1) M/uL Hgb 13.3 L (14.0-18.0) g/dL Hct 38.5 L (42-52) % MCV 86.9 (80-100) fL MCH 30.0 (25-34) pg MCHC 34.5 (32-36) g/dL RDW Std Deviation 42.2 (36.4-46.3) fL RDW Coeff of Ivis 13.1 (11.5-14.5) % Plt Count 191 (130-400) K/uL MPV 10.4 (7.4-10.4) fL Immature Gran % (Auto) 0.2 % Neut % (Auto) 91.2 % Lymph % (Auto) 7.2 % Harlan % (Auto) 1.0 % Eos % (Auto) 0.4 % Baso % (Auto) 0.0 % Neut # (Auto) 10.83 H (1.4-6.5) K/uL Lymph # (Auto) 0.86 L (1.2-3.4) K/uL Harlan # (Auto) 0.12 (0.11-0.59) K/uL Eos # (Auto) 0.05 (0-0.5) K/uL Baso # (Auto) 0.00 (0-0.2) K/uL Immature Gran # (Auto) 0.02 (0.00-0.02) K/uL PT 19.4 H (9.0-12.0) Seconds INR 1.9 H (0.9-1.1) APTT 31.3 H (21.0-31.0) Seconds PTT Ratio 1.1 VBG pH (7.36-7.41) VBG pCO2 (38-50) mmHg VBG pO2 mmHg VBG HCO3 mmol/L VBG O2 Saturation % VBG Base Excess mEq/L Barometric Pressure mm/Hg Sodium 132 L (136-145) mmol/L Potassium 3.6 (3.5-5.1) mmol/L Chloride 96 L (98-107) mmol/L Carbon Dioxide 29 (21-32) mmol/L Anion Gap 7.0 (3-11) BUN 26 H (7-18) mg/dl Creatinine 1.08 (0.6-1.4) mg/dl Est Cr Clr Drug Dosing 67.9 ml/min Est GFR ( Amer) 78.5 Est GFR (Non-Af Amer) 67.7 BUN/Creatinine Ratio 24.1 H (10-20) Glucose 95 (70-99) mg/dl Lactate (0.4-2.0) mmol/L Calcium 8.5 (8.5-10.1) mg/dl Phosphorus 2.3 L (2.5-4.9) mg/dl Magnesium 2.0 (1.8-2.4) mg/dl Total Bilirubin 1.7 H (0.2-1) mg/dl Direct Bilirubin 0.4 H (0-0.2) mg/dl AST 22 (15-37) U/L ALT 24 (12-78) U/L Alkaline Phosphatase 106 (45-117) U/L Total Creatine Kinase 201 (39-308) U/L Troponin I < 0.015 (0-0.045) ng/ml NT-Pro-B Natriuret Pep 56750 H (0-900) pg/ml Total Protein 6.6 (6.4-8.2) gm/dl Albumin 3.4 (3.4-5.0) gm/dl Globulin 3.2 (2.5-4.0) gm/dl Albumin/Globulin Ratio 1.1 (0.9-2) Lipase 205 (73-393) U/L Procalcitonin (0-0.5) ng/ml Urine Color Urine Appearance (Clear) Urine pH (4.5-7.5) Ur Specific Dyke (1.000-1.030) Urine Protein (Negative) Urine Glucose (UA) (Negative) Urine Ketones (Negative) Urine Blood (Negative) Urine Nitrite (Negative) Urine Bilirubin (Negative) Urine Urobilinogen (Negative) Ur Leukocyte Esterase (Negative) Urine WBC (Auto) (0-5) /hpf Urine RBC (Auto) (0-4) /hpf U Hyaline Cast (Auto) (0-5) /lpf U Epithel Cells (Auto) (0-5) /lpf Urine Bacteria (Auto) (Negative) COVID-19 Eval Order COVID-19 PCR (Negative) Influenza Type A (PCR) (Neg) Influenza Type B (PCR) (Neg) RSV (RT-PCR) (Neg) SARS-CoV-2, RNA, NAAT (NEGATIVE) 07/11/20 07/11/20 07/11/20 Range/Units 14:10 15:28 15:28 WBC (4.8-10.8) K/uL RBC (4.7-6.1) M/uL Hgb (14.0-18.0) g/dL Hct (42-52) % MCV (80-100) fL MCH (25-34) pg MCHC (32-36) g/dL RDW Std Deviation (36.4-46.3) fL RDW Coeff of Ivis (11.5-14.5) % Plt Count (130-400) K/uL MPV (7.4-10.4) fL Immature Gran % (Auto) % Neut % (Auto) % Lymph % (Auto) % Harlan % (Auto) % Eos % (Auto) % Baso % (Auto) % Neut # (Auto) (1.4-6.5) K/uL Lymph # (Auto) (1.2-3.4) K/uL Harlan # (Auto) (0.11-0.59) K/uL Eos # (Auto) (0-0.5) K/uL Baso # (Auto) (0-0.2) K/uL Immature Gran # (Auto) (0.00-0.02) K/uL PT (9.0-12.0) Seconds INR (0.9-1.1) APTT (21.0-31.0) Seconds PTT Ratio VBG pH 7.36 (7.36-7.41) VBG pCO2 48 (38-50) mmHg VBG pO2 25 mmHg VBG HCO3 26 mmol/L VBG O2 Saturation < 60.0 % VBG Base Excess 0.4 mEq/L Barometric Pressure 737.7 mm/Hg Sodium (136-145) mmol/L Potassium (3.5-5.1) mmol/L Chloride (98-107) mmol/L Carbon Dioxide (21-32) mmol/L Anion Gap (3-11) BUN (7-18) mg/dl Creatinine (0.6-1.4) mg/dl Est Cr Clr Drug Dosing ml/min Est GFR ( Amer) Est GFR (Non-Af Amer) BUN/Creatinine Ratio (10-20) Glucose (70-99) mg/dl Lactate 2.3 H* (0.4-2.0) mmol/L Calcium (8.5-10.1) mg/dl Phosphorus (2.5-4.9) mg/dl Magnesium (1.8-2.4) mg/dl Total Bilirubin (0.2-1) mg/dl Direct Bilirubin (0-0.2) mg/dl AST (15-37) U/L ALT (12-78) U/L Alkaline Phosphatase (45-117) U/L Total Creatine Kinase (39-308) U/L Troponin I (0-0.045) ng/ml NT-Pro-B Natriuret Pep (0-900) pg/ml Total Protein (6.4-8.2) gm/dl Albumin (3.4-5.0) gm/dl Globulin (2.5-4.0) gm/dl Albumin/Globulin Ratio (0.9-2) Lipase (73-393) U/L Procalcitonin < 0.05 (0-0.5) ng/ml Urine Color Urine Appearance (Clear) Urine pH (4.5-7.5) Ur Specific Dyke (1.000-1.030) Urine Protein (Negative) Urine Glucose (UA) (Negative) Urine Ketones (Negative) Urine Blood (Negative) Urine Nitrite (Negative) Urine Bilirubin (Negative) Urine Urobilinogen (Negative) Ur Leukocyte Esterase (Negative) Urine WBC (Auto) (0-5) /hpf Urine RBC (Auto) (0-4) /hpf U Hyaline Cast (Auto) (0-5) /lpf U Epithel Cells (Auto) (0-5) /lpf Urine Bacteria (Auto) (Negative) COVID-19 Eval Order COVID-19 PCR (Negative) Influenza Type A (PCR) (Neg) Influenza Type B (PCR) (Neg) RSV (RT-PCR) (Neg) SARS-CoV-2, RNA, NAAT (NEGATIVE) 07/11/20 07/11/20 07/11/20 Range/Units 15:53 15:53 17:14 WBC (4.8-10.8) K/uL RBC (4.7-6.1) M/uL Hgb (14.0-18.0) g/dL Hct (42-52) % MCV (80-100) fL MCH (25-34) pg MCHC (32-36) g/dL RDW Std Deviation (36.4-46.3) fL RDW Coeff of Ivis (11.5-14.5) % Plt Count (130-400) K/uL MPV (7.4-10.4) fL Immature Gran % (Auto) % Neut % (Auto) % Lymph % (Auto) % Harlan % (Auto) % Eos % (Auto) % Baso % (Auto) % Neut # (Auto) (1.4-6.5) K/uL Lymph # (Auto) (1.2-3.4) K/uL Harlan # (Auto) (0.11-0.59) K/uL Eos # (Auto) (0-0.5) K/uL Baso # (Auto) (0-0.2) K/uL Immature Gran # (Auto) (0.00-0.02) K/uL PT (9.0-12.0) Seconds INR (0.9-1.1) APTT (21.0-31.0) Seconds PTT Ratio VBG pH (7.36-7.41) VBG pCO2 (38-50) mmHg VBG pO2 mmHg VBG HCO3 mmol/L VBG O2 Saturation % VBG Base Excess mEq/L Barometric Pressure mm/Hg Sodium (136-145) mmol/L Potassium (3.5-5.1) mmol/L Chloride (98-107) mmol/L Carbon Dioxide (21-32) mmol/L Anion Gap (3-11) BUN (7-18) mg/dl Creatinine (0.6-1.4) mg/dl Est Cr Clr Drug Dosing ml/min Est GFR ( Amer) Est GFR (Non-Af Amer) BUN/Creatinine Ratio (10-20) Glucose (70-99) mg/dl Lactate 1.8 (0.4-2.0) mmol/L Calcium (8.5-10.1) mg/dl Phosphorus (2.5-4.9) mg/dl Magnesium (1.8-2.4) mg/dl Total Bilirubin (0.2-1) mg/dl Direct Bilirubin (0-0.2) mg/dl AST (15-37) U/L ALT (12-78) U/L Alkaline Phosphatase (45-117) U/L Total Creatine Kinase (39-308) U/L Troponin I (0-0.045) ng/ml NT-Pro-B Natriuret Pep (0-900) pg/ml Total Protein (6.4-8.2) gm/dl Albumin (3.4-5.0) gm/dl Globulin (2.5-4.0) gm/dl Albumin/Globulin Ratio (0.9-2) Lipase (73-393) U/L Procalcitonin (0-0.5) ng/ml Urine Color Urine Appearance (Clear) Urine pH (4.5-7.5) Ur Specific Dyke (1.000-1.030) Urine Protein (Negative) Urine Glucose (UA) (Negative) Urine Ketones (Negative) Urine Blood (Negative) Urine Nitrite (Negative) Urine Bilirubin (Negative) Urine Urobilinogen (Negative) Ur Leukocyte Esterase (Negative) Urine WBC (Auto) (0-5) /hpf Urine RBC (Auto) (0-4) /hpf U Hyaline Cast (Auto) (0-5) /lpf U Epithel Cells (Auto) (0-5) /lpf Urine Bacteria (Auto) (Negative) COVID[facility]19 [facility] (Negative) Influenza Type A (PCR) (Neg) Influenza Type B (PCR) (Neg) RSV (RT-PCR) (Neg) SARS-CoV-2, RNA, NAAT NEGATIVE (NEGATIVE) 07/11/20 07/11/20 07/11/20 Range/Units 19:26 19:26 21:14 WBC (4.8-10.8) K/uL RBC (4.7-6.1) M/uL Hgb (14.0-18.0) g/dL Hct (42-52) % MCV (80-100) fL MCH (25-34) pg MCHC (32-36) g/dL RDW Std Deviation (36.4-46.3) fL RDW Coeff of Ivis (11.5-14.5) % Plt Count (130-400) K/uL MPV (7.4-10.4) fL Immature Gran % (Auto) % Neut % (Auto) % Lymph % (Auto) % Harlan % (Auto) % Eos % (Auto) % Baso % (Auto) % Neut # (Auto) (1.4-6.5) K/uL Lymph # (Auto) (1.2-3.4) K/uL Harlan # (Auto) (0.11-0.59) K/uL Eos # (Auto) (0-0.5) K/uL Baso # (Auto) (0-0.2) K/uL Immature Gran # (Auto) (0.00-0.02) K/uL PT (9.0-12.0) Seconds INR (0.9-1.1) APTT (21.0-31.0) Seconds PTT Ratio VBG pH (7.36-7.41) VBG pCO2 (38-50) mmHg VBG pO2 mmHg VBG HCO3 mmol/L VBG O2 Saturation % VBG Base Excess mEq/L Barometric Pressure mm/Hg Sodium (136-145) mmol/L Potassium (3.5-5.1) mmol/L Chloride (98-107) mmol/L Carbon Dioxide (21-32) mmol/L Anion Gap (3-11) BUN (7-18) mg/dl Creatinine (0.6-1.4) mg/dl Est Cr Clr Drug Dosing ml/min Est GFR ( Amer) Est GFR (Non-Af Amer) BUN/Creatinine Ratio (10-20) Glucose (70-99) mg/dl Lactate (0.4-2.0) mmol/L Calcium (8.5-10.1) mg/dl Phosphorus (2.5-4.9) mg/dl Magnesium (1.8-2.4) mg/dl Total Bilirubin (0.2-1) mg/dl Direct Bilirubin (0-0.2) mg/dl AST (15-37) U/L ALT (12-78) U/L Alkaline Phosphatase (45-117) U/L Total Creatine Kinase (39-308) U/L Troponin I (0-0.045) ng/ml NT-Pro-B Natriuret Pep (0-900) pg/ml Total Protein (6.4-8.2) gm/dl Albumin (3.4-5.0) gm/dl Globulin (2.5-4.0) gm/dl Albumin/Globulin Ratio (0.9-2) Lipase (73-393) U/L Procalcitonin (0-0.5) ng/ml Urine Color Yellow Urine Appearance Clear (Clear) Urine pH 6.0 (4.5-7.5) Ur Specific Dyke 1.037 H (1.000-1.030) Urine Protein Negative (Negative) Urine Glucose (UA) Negative (Negative) Urine Ketones Negative (Negative) Urine Blood 3+ H (Negative) Urine Nitrite Negative (Negative) Urine Bilirubin Negative (Negative) Urine Urobilinogen Negative (Negative) Ur Leukocyte Esterase Negative (Negative) Urine WBC (Auto) 1-5 (0-5) /hpf Urine RBC (Auto) >30 H (0-4) /hpf U Hyaline Cast (Auto) 0 (0-5) /lpf U Epithel Cells (Auto) 5-10 H (0-5) /lpf Urine Bacteria (Auto) Negative (Negative) COVID-19 Eval Order [facility]FluRsv at [facility] COVID-19 PCR NEGATIVE (Negative) Influenza Type A (PCR) Negative (Neg) Influenza Type B (PCR) Negative (Neg) RSV (RT-PCR) Negative (Neg) SARS-CoV-2, RNA, NAAT (NEGATIVE) Diagnostic Findings CT ANGIOGRAM OF THE CHEST CLINICAL HISTORY: Sepsis. COMPARISON STUDY: Chest x-ray dated 07/11/2020. Chest CT scans dated 06/10/2020 and 02/22/2020. TECHNIQUE: Following the IV administration of 120 cc of Optiray 320, CT angiogram of the chest was performed from the upper abdomen to the thoracic inlet utilizing the pulmonary embolus protocol. Images are reviewed in the axial, sagittal, and coronal planes. 3-D MIPS images are created and assessed. IV contrast was administered without complication. A dose lowering technique was utilized adhering to the principles of ALARA. FINDINGS: Thyroid: Imaged portions of the thyroid gland are normal in size and attenuation. Thoracic aorta: There is atherosclerotic calcification of the thoracic aorta, which is normal in caliber and demonstrates standard 3-vessel arch anatomy. No dissection is seen. Pulmonary vasculature: The pulmonary trunk is normal in caliber. There are no filling defects identified in main, lobar, or segmental pulmonary branches to suggest pulmonary embolus. Heart: A 2-lead cardiac pacemaker is present in the left chest wall. The heart is normal in size and without pericardial effusion. The coronary arteries are densely calcified. Reflux of contrast in the IVC and hepatic veins suggests cardiac dysfunction. Lungs and pleural spaces: Advanced emphysematous change is similar to previous. There is no airspace consolidation typical for pneumonia or pleural effusion. A mass in the infrahilar right lower lobe is similar in appearance to 06/10/2020 examination. This measures 6.1 x 7.0 x 6.1 cm. This encases and occludes several right lower lobe bronchi. Postobstructive consolidation is seen in the superior segment right lower lobe. Minimal secretions are noted in the distal trachea. Mild diffuse peribronchial thickening is observed. A 3 mm pleural-based nodule in the right middle lobe on image #115 is unchanged. Mediastinum: Enlarged right subcarinal node has increased in size from previous, measuring 5.1 x 4.2 cm. A precarinal node on image #199 measures 1.7 cm in short axis. [place]: There is right hilar adenopathy. A node on image #187 measures 2.8 x 2.5 cm. There are also mildly enlarged right infrahilar lymph nodes. No left hilar adenopathy is seen. Axillae: There is no axillary lymphadenopathy. Upper abdomen: Partially visualized upper abdominal viscera is within normal limits. Skeletal structures: The skeletal structures are osteopenic. Compression deformities of T12 and L1 are similar to previous. Paravertebral edema suggests that these are subacute. No lytic or blastic bony lesions are seen. Soft tissues: Gynecomastia is noted. IMPRESSION: 1. There is no evidence of pulmonary embolus in the main, lobar, or segmental pulmonary arteries. 2. There is no airspace consolidation typical for pneumonia or pleural effusion. 3. Advanced emphysema and a right lower lobe lung mass are similar in appearance to the 06/10/2020 examination. 4. Mediastinal and right hilar adenopathy are again noted and consistent with fercho metastatic disease. 5. Compression fractures of T12 and L1 are similar in appearance to previous. Paravertebral edema suggests that these are subacute. Clinical correlation will be required. 5. Additional findings as above. ACT 112: Negative or not required by law. Electronically signed by: Deangelo Thacker M.D. 07/11/2020 5:09 PM Dictated: 07/11/20 1655Transcribed: 07/11/[address] abd pelvis IV con only CLINICAL HISTORY: Lung carcinoma. Abdominal pain. Trauma. COMPARISON STUDY: 06/10/2020 TECHNIQUE: The patient was scanned in a dynamic helical fashion during intravenous and ministration 120 cc of Optiray 320 A dose lowering technique was utilized adhering to the principles of ALARA. CT DOSE: 887.60 mGy.cm FINDINGS: Lower chest: There is pulmonary emphysema. There is basilar atelectasis. There are no significant pleural effusions. Liver: There is a stable 4 mm right hepatic lobe hypodensity, likely representing a cyst. Gallbladder: Unremarkable. Spleen: Normal in size and attenuation. Pancreas: There is persistent pancreatic ductal dilatation. There is a multicystic 37 mm pancreatic head lesion, similar to the preceding study. Adrenal glands: Unremarkable. Kidneys: There is symmetric renal cortical enhancement. The kidneys are normal in size without hydronephrosis. Bowel: There is moderate fecal retention. There are nondilated fluid-filled small bowel loops. There are no transition zones to indicate bowel obstruction. There is no evidence of acute diverticulitis. By history the appendix is surgically absent. Peritoneum: There is no intraperitoneal free air or abdominal ascites. Vasculature: The abdominal aorta is normal in course and caliber. There are moderate aortoiliac atheromatous changes. Adenopathy: None. Pelvic viscera: There is mild bladder distention. Skeletal structures: There is a stable sclerotic focus involving the cecal aspect of the right SI joint. Degenerative changes are present within the spine. T12 and L1 compression fractures are redemonstrated. IMPRESSION: 1. Slight interval enlargement in the size of a 37 mm septated cystic lesion involving the pancreatic head with associated pancreatic ductal dilatation. 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 Further workup is advocated. 2. No evidence of bowel obstruction. No evidence of free air 3. Moderate fecal retention 4. No evidence of intra-abdominal or pelvic metastatic disease 5. Redemonstration of T12 and L1 vertebral body compression fractures ACT 112: Negative or not required by law. Electronically signed by: Faizan Carbajal M.D. 07/11/2020 5:11 PM Dictated: 07/11/[id number]: 07/11/201704 XR chest 1V portable CLINICAL HISTORY: SEPSIS COMPARISON STUDY: 05/10/2020 FINDINGS: The heart is normal in size. There is a left subclavian dual-chamber central venous pacemaker present.[There is a 7 cm right infrahilar mass, consistent with the patient's known neoplasm. There is no acute parenchymal consolidation. There is no failure. There are no pleural effusions. IMPRESSION: 1. 7 cm right infrahilar mass, consistent with neoplasm. ACT 112: Negative or not required by law. Electronically signed by: Faizan Carbajal M.D. 07/11/2020 4:42 PM Dictated: 07/11/[id number]: 07/11/20 164 Code Status & VTE Plan VTE Prophylaxis Plan VTE Prophylaxis will be ordered: Yes PG Care Time/CCT Total # of Minutes Spent Total Time Spent with Patient: Total time spent is greater than 50% in coordination of care (as documented) at patient's floor/unit and/or counseling patient: Coding Level of Care Code 86373 OBS Care - Level 3 Diagnoses Fall W19.XXXA Elevated brain natriuretic peptide (BNP) level R79.89 COPD (chronic obstructive pulmonary disease) J44.9 Atrial fibrillation I48.11 Atrial fibrillation type: longstanding persistent Small cell lung 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 C34.90 (1) Atrial fibrillation Atrial fibrillation type: longstanding persistent Qualified Code(s): I48.11 - Longstanding persistent atrial fibrillation
[2020-07-12] MEDS: oxyCODONE HCL IR 5 MG TAB (IMMEDIATE RELEASE) PO PRN ×3 (00:37→20:29)
[2020-07-12] MEDS: PROPRANOLOL HCL 20 MG TAB PO SCH ×3 (00:38→20:27)
[2020-07-12] MEDS: TAMSULOSIN HCL 0.4 MG CAP PO SCH ×2 (00:38→20:25)
[2020-07-12] MEDS: ATORVASTATIN 20 MG TAB PO SCH ×2 (00:38→20:28)
[2020-07-12] MEDS: haloperidoL 1 MG TAB PO SCH ×3 (00:38→20:26)
[2020-07-12] MEDS: hydrOXYzine HCl 25 MG TAB PO SCH ×3 (00:38→20:29)
[2020-07-12 05:58] LABS: Eosinophils # (auto) 0.34 K/uL (0-0.5); Eosinophils % (auto) 4.1 %; Hemoglobin 11.9 g/dL (14.0-18.0); Immature Granulocytes # (auto) 0.02 K/uL (0.00-0.02); Immature Granulocytes % (auto) 0.2 %; Lymphocytes # (auto) 0.73 K/uL (1.2-3.4); Lymphocytes % (auto) 8.8 %; Mean Corpuscular Hemoglobin 29.4 pg (25-34); Mean Corpuscular Volume 86.4 fL (80-100); Mean Platelet Volume 9.7 fL (7.4-10.4); Monocytes # (auto) 0.02 K/uL (0.11-0.59); Monocytes % (auto) 0.2 %; Neutrophils # (auto) 7.15 K/uL (1.4-6.5); Neutrophils % (auto) 86.7 %; Platelet Count 128 K/uL (130-400); RDW Standard Deviation 41.5 fL (36.4-46.3); Red Blood Count 4.05 M/uL (4.7-6.1); White Blood Count 8.26 K/uL (4.8-10.8)
[2020-07-12 06:15] LABS: INR 2.2 (0.9-1.1); Prothrombin Time 22.4 Seconds (9.0-12.0)
[2020-07-12 06:26] LABS: Albumin Level 2.9 gm/dl (3.4-5.0); BUN Creatinine Ratio 27.4 (10-20); Bilirubin Direct 0.3 mg/dl (0-0.2); Calcium 7.8 mg/dl (8.5-10.1); Creatinine Clr Calc Pharmacy 80.4 ml/min; Est GFR (African American) 98.3; Est GFR (Non-African American) 84.8; Potassium 3.3 mmol/L (3.5-5.1)
[2020-07-12 06:28] LABS: Bilirubin,Total 1.7 mg/dl (0.2-1); Total Protein 5.7 gm/dl (6.4-8.2)
--- NOTE | 2020-07-12 07:52 | Electrocardiogram Report ---
Test Reason : Blood Pressure : / mmHG Vent. Rate : 085 BPM Atrial Rate : 394 BPM P-R Int : 000 ms QRS Dur : 066 ms QT Int : 344 ms P-R-T Axes : 000 048 019 degrees QTc Int : 409 ms Atrial fibrillation with frequent ventricular-paced complexes fusion beats Low voltage QRS Incomplete right bundle branch block Abnormal ECG When compared with ECG of 10-JUN-2016 18:45, Vent. rate has increased BY 5 BPM Confirmed by Quinn Tomas ([id number]) on 07/12/2020 7:51:54 AM Referred By: [facility] Confirmed By:Erwin Tomas
--- NOTE | 2020-07-12 08:06 | XRay Report ---
XR hip LT 2V w pelvis CLINICAL HISTORY: fall x 3, pain/tenderness, ?fracture COMPARISON: CT scan dated 07/11/2020 DISCUSSION: There is contrast in the bladder secondary to a prior CT scan. There is subtle lucencies through the superior margin the greater trochanter. This may represent a nondisplaced fracture. On th e CT scan performed the same day, in retrospect there is an equivocal lucency through the greater tro chanter. An MRI could be obtained in follow-up as deemed clinically appropriate. IMPRESSION: 1. Equivocal nondisplaced fracture through the superior margin of the greater trochanter of the left hip. An MRI could be obtained in follow-up as deemed clinically appropriate. ACT 112: Negative or not required by law. Electronically signed by: Faizan Carbajal M.D. 07/12/2020 8:05 AM
--- NOTE | 2020-07-12 08:32 | XCELERA ---
[id number] \\[id number]_[id number]
[2020-07-12] MEDS: DOCUSATE SODIUM/SENNA 50/8.6MG TAB PO SCH (08:59)
[2020-07-12] MEDS: BENZTROPINE MESYLATE 1 MG TAB PO SCH (08:59)
[2020-07-12] MEDS: MONTELUKAST SODIUM 10 MG TABLET PO SCH (09:00)
[2020-07-12] MEDS: FLUTICASONE FUROATE 100MCG 14 PUFFS/INHALER INH SCH (09:00)
[2020-07-12] MEDS: UMECLIDINIUM BROMIDE 62.5MCG/BLISTER 7 PUFFS/INHALER INH SCH (09:00)
--- NOTE | 2020-07-12 09:25 | History & Physical Report ---
Date of Service July 12, 2020 Assessment & Plan (1) Fracture of greater trochanter of left femur: This is a very small nondisplaced fracture of the very tip of the greater trochanter. Fortunately, this can be treated nonoperatively. He can be up and weightbearing as tolerated on the left hip. I told him it could take several weeks before the pain subsides completely. Nothing more needs done from an orthopedic standpoint, this should heal fine on its own. Present on Admission?: Yes Admission and Anticipated Discharge Date Admission Date: July 11, 2020 History of Present Illness Chief Complaint: Nondisplaced left greater trochanteric hip fracture Primary Care Provider: [facility] Luis Miguel Ball is a 75-year-old male who resides at [facility]. He says he has had multiple falls recently. He most recently fell yesterday when he fell directly onto his left hip. He was having left hip pain. He came to the emergency room and radiographs demonstrated a nondisplaced fracture of the tip of the greater trochanter. He was admitted for other medical reasons. Orthopedics was consulted to evaluate and treat. Allergies Allergy/AdvReac Type Severity Reaction Status Date / Time No Known Allergies Allergy Verified 07/11/20 18:10 Home Medications Medication Instructions Recorded Confirmed Type Alvesco 2 puff INHALATION BID 05/09/20 07/11/20 History Senna Plus 2 tab-cap PO DAILY 05/09/20 07/11/20 History Spiriva with HandiHaler 1 cap INHALATION DAILY 05/09/20 07/11/20 History atorvastatin 20 mg PO HS 05/09/20 07/11/20 History benztropine 1 mg PO DAILY 05/09/20 07/11/20 History haloperidol 1 mg PO BID 05/09/20 07/11/20 History haloperidol 2 mg PO BID 05/09/20 07/11/20 History hydroxyzine HCl 25 mg PO BID 05/09/20 07/11/20 History levalbuterol tartrate [Xopenex HFA] 2 inh INHALATION QID PRN 05/09/20 07/11/20 History montelukast 10 mg PO DAILY 05/09/20 07/11/20 History propranolol 40 mg PO BID 05/09/20 07/11/20 History tamsulosin 0.4 mg PO HS 05/09/20 07/11/20 History warfarin 2 mg tablet 2 mg PO DAILY 07/08/20 07/11/20 History Past Med/Surg History Medical History Anxiety Atrial fibrillation ANTICOAGULATED WITH COUMADIN Chronic obstructive pulmonary disease Hyperlipidemia Hypertension Inmate in correctional facility Nocturia Phlebitis DEEP LOWER EXTREMITY. Pulmonary mass Sick sinus syndrome s/p insertion of PPM 06/02/16 Syncope Implantation of dual-chamber Medtronic pacemaker 06/02/2016 Surgical History History of appendectomy History of tonsillectomy Status post biventricular cardiac pacemaker insertion 2015. Has followed with Dr. Calle. Social History Smoking Status: Former smoker Age Started Using Tobacco: 11; Age Quit Using Tobacco: 55; packs per day: 1; Years Smoked: 44; Cigarettes Per Day: 20; Smoking End Date: 2009; Number of Years Since Quit: 20; Second Hand Exposure: Yes; Hx Alcohol Use: No Hx Substance Use: No Preferred Language: Colombian Communication Ability: Effective Visual Impairment: No Limitations Hearing Ability: Normal Loan Administrator Required: No Beliefs That Will Affect Care: None marital status: Single Current Living Situation: Other Current Living Situation Comment: [facility] Bolanos current occupational status: unemployed Other Information That Helps Us Care for You: No Feels Safe at Home: Yes Safety Concerns: Feels Safe At This Time caffeine: No during the past year weight has: remained stable Dental Care, Regularly: No Seatbelt Use: always Sunscreen Use: No Assistive Devices: Oxygen - Continuous Review of Systems Review of Systems: All systems reviewed & are unremarkable except as noted in HPI & below Physical Exam Constitutional: WD/WN, vitals as above Eyes: PERRL, conjunctivae normal, anicteric sclerae ENMT: external ear and nose normal, oropharynx normal Neck: trachea midline, no thyromegaly Respiratory: normal respiratory effort Cardiovascular: RRR, no murmur, no edema Gastrointestinal (Abdomen): normal bowel sounds, soft, nontender, no hepatosplenomegaly Musculoskeletal: On physical examination of the left hip, he has tenderness palpation over the tip of the greater trochanter. I am able to flex his hip about 80 degrees and he has about 20 degrees of internal rotation 30 degrees of external rotation. He has pain at end ranges of motion. Psychiatric: A+Ox3, euthymic affect Results & Data Results & Data ([facility]) Vital Signs (Past 12 Hours) Vital Signs Temp Pulse Pulse Pulse Resp BP BP 07/12/20 08:04 36.9 C 61 18 107/72 07/11/20 23:45 37.1 C 88 18 131/84 07/11/20 22:41 83 19 95/64 L 07/11/20 22:30 85 14 07/11/20 22:15 86 16 07/11/20 22:01 94 H 26 H 137/88 07/11/20 21:45 82 15 112/75 07/11/20 21:30 93 H 20 134/92 Pulse Ox 07/12/20 08:04 94 07/11/20 23:45 96 07/11/20 22:41 93 07/11/20 22:30 90 07/11/20 22:15 91 07/11/20 22:01 07/11/20 21:45 92 07/11/20 21:30 90 Diagnostic Findings X-rays of the left hip show a very small nondisplaced fracture of the tip of the greater trochanter. There is minimal arthritis of the hips. Code Status & VTE Plan VTE Prophylaxis Plan VTE Prophylaxis will be ordered: Yes PG Care Time/CCT Total # of Minutes Spent Total Time Spent with Patient: Total time spent is greater than 50% in coordination of care (as documented) at patient's floor/unit and/or counseling patient: Coding Level of Care Code 89047 Initial Inpt Care Lvl 2 Diagnoses Fracture of greater trochanter of left femur S72.112A
--- NOTE | 2020-07-12 10:15 | Gastrointestinal Consultation ---
Date of Consultation July 12, 2020 Assessment & Plan (1) Pancreatic ductal abnormality: (2) Pancreatic lesion: -Patient is unsure if he wishes to pursue any further testing, but if he decides he wishes to pursue testing--could consider EUS with [facility], though this likely could be done as an outpatient. Supervising Physician Co-Signing Physician Notes Agree with CRUZ King Abd: Soft, NT, ND Continue current therapy and supportive care Consider outpatient EUS History of Present Illness Reason for Consultation: pancreatic cyst w ductal dilatation, pt w lung cancer Attending Physician: David Chacko MD History of Present Illness Patient is a 75 yo incarcerated male with lung cancer. GI has been consulted for CT findings of persistent pancreatic ductal dilatation and a multicystic 37 mm pancreatic head lesion. This is similar to prior imaging studies. The patient does not appear to be aware of this finding previously. He reports his physical complaint is shortness of breath. He denies new symptoms since admission. No known family history of pancreatic issues. No jaundice. T Bili 1.7, D Bili 0.3. AST, ALT, & Alk phos negative. Allergies Allergy/AdvReac Type Severity Reaction Status Date / Time No Known Allergies Allergy Verified 07/11/20 18:10 Home Medications Medication Instructions Recorded Confirmed Type Alvesco 2 puff INHALATION BID 05/09/20 07/11/20 History Senna Plus 2 tab-cap PO DAILY 05/09/20 07/11/20 History Spiriva with HandiHaler 1 cap INHALATION DAILY 05/09/20 07/11/20 History atorvastatin 20 mg PO HS 05/09/20 07/11/20 History benztropine 1 mg PO DAILY 05/09/20 07/11/20 History haloperidol 1 mg PO BID 05/09/20 07/11/20 History haloperidol 2 mg PO BID 05/09/20 07/11/20 History hydroxyzine HCl 25 mg PO BID 05/09/20 07/11/20 History levalbuterol tartrate [Xopenex HFA] 2 inh INHALATION QID PRN 05/09/20 07/11/20 History montelukast 10 mg PO DAILY 05/09/20 07/11/20 History propranolol 40 mg PO BID 05/09/20 07/11/20 History tamsulosin 0.4 mg PO HS 05/09/20 07/11/20 History warfarin 2 mg tablet 2 mg PO DAILY 07/08/20 07/11/20 History Patient History Medical History (Updated 07/12/20 @ 10:55 by Abdiaziz Paredes MD) Anxiety Atrial fibrillation ANTICOAGULATED WITH COUMADIN Chronic obstructive pulmonary disease Hyperlipidemia Hypertension Inmate in correctional facility Nocturia Phlebitis DEEP LOWER EXTREMITY. Pulmonary mass Shortness of breath Sick sinus syndrome s/p insertion of PPM 06/02/16 Syncope Implantation of dual-chamber Medtronic pacemaker 06/02/2016 Surgical History History of appendectomy History of tonsillectomy Status post biventricular cardiac pacemaker insertion 2015. Has followed with Dr. Calle. Social History Smoking Status: Former smoker Age Started Using Tobacco: 11; Age Quit Using Tobacco: 55; packs per day: 1; Years Smoked: 44; Cigarettes Per Day: 20; Smoking End Date: 2009; Number of Years Since Quit: 20; Second Hand Exposure: Yes; Hx Alcohol Use: No Hx Substance Use: No Preferred Language: Macedonian Communication Ability: Effective Visual Impairment: No Limitations Hearing Ability: Normal Respiratory Director Required: No Beliefs That Will Affect Care: None marital status: Single Current Living Situation: Other Current Living Situation Comment: [facility] Bolanos current occupational status: unemployed Other Information That Helps Us Care for You: No Feels Safe at Home: Yes Safety Concerns: Feels Safe At This Time caffeine: No during the past year weight has: remained stable Dental Care, Regularly: No Seatbelt Use: always Sunscreen Use: No Assistive Devices: Oxygen - Continuous Review of Systems Constitutional: + fatigue; no fever and no chills Eyes: no problem reported Respiratory: + cough and + dyspnea Cardiovascular: no chest pain Gastrointestinal: no abdominal pain, no nausea, no vomiting and no change in bowel habits Integumentary: no rash Neurologic: no falls Psychiatric: no problem reported Hematologic / Lymphatic: no problem reported Physical Exam Constitutional: + ill appearing Respiratory: normal respiratory effort Cardiovascular: Extremities: no edema Gastrointestinal (Abdomen): Inspection/Auscultation: abdomen normal to inspection Musculoskeletal: Head/Neck/Chest: normocephalic Skin: no jaundice Psychiatric: A+Ox3, euthymic affect Results & Data ([facility]) Vital Signs (Past 12 Hours) Vital Signs Temp Pulse Pulse Pulse Resp BP Pulse Ox 07/12/20 08:04 36.9 C 61 18 107/72 94 07/11/20 23:45 37.1 C 88 18 131/84 96 07/11/20 22:41 83 19 95/64 L 93 07/11/20 22:30 85 14 90 07/11/20 22:15 86 16 91 PG Care Time/CCT Total # of Minutes Spent Total Time Spent with Patient: Total time spent is greater than 50% in coordination of care (as documented) at patient's floor/unit and/or counseling patient: Coding Level of Care Code 65769 Inpt Consult Level 4 Diagnoses Pancreatic ductal abnormality Q45.3 Pancreatic lesion K86.9
--- NOTE | 2020-07-12 10:59 | Pulmonary Consultation ---
Date of Consultation July 12, 2020 Assessment & Plan (1) Small cell lung 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: I did review the CT chest. I do not see any evidence of radiation pneumonitis at this point. There is no evidence of infection. I do not think the patient is in a COPD exacerbation. I reviewed his PFT from 06/26/2020 which demonstrated a severe airflow obstruction consistent with COPD. Continue Incruse Ellipta and as needed albuterol. Systemic steroids are not indicated at this point. Patient can follow-up in the pulmonary clinic as needed. Thank you for the consult. Please call with questions. (2) COPD (chronic obstructive pulmonary disease): (3) Shortness of breath: History of Present Illness Reason for Consultation: "SOB in lung cancer patient, follows with your group" Requesting Physician: ANA Garcia Attending Physician: David Chacko MD History of Present Illness 75-year-old male recently diagnosed with small cell carcinoma of the lung currently on chemo radiation who presented to the hospital due to a fall and femur fracture. Patient notes he has some mildly worsening shortness of breath. He is a poor historian. He notes that he has a wheeze when he coughs. He feels that his wheezes got worse. However, he says that his cough is the same as it has been. I do not think he is able to differentiate between a wheeze or cough. He denies any fevers or chills. No night sweats. Appetite has been poor. He is currently on Incruse Ellipta. He is also on Singulair 10 mg daily. Allergies Allergy/AdvReac Type Severity Reaction Status Date / Time No Known Allergies Allergy Verified 07/11/20 18:10 Home Medications Medication Instructions Recorded Confirmed Type Alvesco 2 puff INHALATION BID 05/09/20 07/11/20 History Senna Plus 2 tab-cap PO DAILY 05/09/20 07/11/20 History Spiriva with HandiHaler 1 cap INHALATION DAILY 05/09/20 07/11/20 History atorvastatin 20 mg PO HS 05/09/20 07/11/20 History benztropine 1 mg PO DAILY 05/09/20 07/11/20 History haloperidol 1 mg PO BID 05/09/20 07/11/20 History haloperidol 2 mg PO BID 05/09/20 07/11/20 History hydroxyzine HCl 25 mg PO BID 05/09/20 07/11/20 History levalbuterol tartrate [Xopenex HFA] 2 inh INHALATION QID PRN 05/09/20 07/11/20 History montelukast 10 mg PO DAILY 05/09/20 07/11/20 History propranolol 40 mg PO BID 05/09/20 07/11/20 History tamsulosin 0.4 mg PO HS 05/09/20 07/11/20 History warfarin 2 mg tablet 2 mg PO DAILY 07/08/20 07/11/20 History Patient History Medical History Anxiety Atrial fibrillation ANTICOAGULATED WITH COUMADIN Chronic obstructive pulmonary disease Hyperlipidemia Hypertension Inmate in correctional facility Nocturia Phlebitis DEEP LOWER EXTREMITY. Pulmonary mass Sick sinus syndrome s/p insertion of PPM 06/02/16 Syncope Implantation of dual-chamber Medtronic pacemaker 06/02/2016 Surgical History History of appendectomy History of tonsillectomy Status post biventricular cardiac pacemaker insertion 2015. Has followed with Dr. Calle. Social History Smoking Status: Former smoker Age Started Using Tobacco: 11; Age Quit Using Tobacco: 55; packs per day: 1; Years Smoked: 44; Cigarettes Per Day: 20; Smoking End Date: 2009; Number of Years Since Quit: 20; Second Hand Exposure: Yes; Hx Alcohol Use: No Hx Substance Use: No Preferred Language: Upper Sorbian Communication Ability: Effective Visual Impairment: No Limitations Hearing Ability: Normal Software Engineer Web Services Required: No Beliefs That Will Affect Care: None marital status: Single Current Living Situation: Other Current Living Situation Comment: [facility] Bolanos current occupational status: unemployed Other Information That Helps Us Care for You: No Feels Safe at Home: Yes Safety Concerns: Feels Safe At This Time caffeine: No during the past year weight has: remained stable Dental Care, Regularly: No Seatbelt Use: always Sunscreen Use: No Assistive Devices: Oxygen - Continuous Review of Systems 2 Review of Systems: All systems reviewed & are unremarkable except as noted in HPI & below Physical Exam Constitutional: WD/WN, vitals as above Laying in bed shackled. Nasal cannula in place. Eyes: PERRL, conjunctivae normal, anicteric sclerae ENMT: external ear and nose normal, oropharynx normal Neck: normal visual inspection Respiratory: normal respiratory effort, lungs clear to auscultation Cardiovascular: RRR, no murmur, no edema Gastrointestinal (Abdomen): normal bowel sounds, soft, nontender, no hepatosplenomegaly Musculoskeletal: no cyanosis or clubbing, extremities motor strength 5/5 Skin: no rashes, warm and dry Neurologic: PERRL, EOMI, accommodation nl, no face palsy, no dysarthria Psychiatric: A+Ox3, euthymic affect Results & Data Results & Data ([facility]) Vital Signs (Past 12 Hours) Vital Signs Temp Pulse Pulse Resp BP Pulse Ox 07/12/20 08:04 98.4 F 61 18 107/72 94 07/11/20 23:45 98.8 F 88 18 131/84 96 I reviewed the vital signs, labs and imaging. CT chest with no evidence of PE. Advanced emphysema is seen along with right-sided mass and hilar adenopathy. PG Care Time/CCT Total # of Minutes Spent Total Time Spent with Patient: Total time spent is greater than 50% in coordination of care (as documented) at patient's floor/unit and/or counseling patient: Coding Level of Care Code 45181 Inpt Consult Level 3 Diagnoses Small cell lung 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 C34.90 COPD (chronic obstructive pulmonary disease) J44.9 Shortness of breath R06.02
[2020-07-12] MEDS ORDERED: POTASSIUM CHLORIDE CRTAB 20 MEQ TABCR PO STA (12:20)
[2020-07-12] MEDS ORDERED: SODIUM CHLORIDE 0.9% 500 ML IV SCH (12:30)
--- NOTE | 2020-07-12 16:05 | Hospitalist Progress Note ---
Date of Service July 12, 2020 Assessment & Plan (1) Fall: * s/p fall x 3 with left hip pain * Xray with equivocal non-displaced fracture through superior margin of the greater trochanter LEFT HIP -- MRI f/u as deemed clinically appropriate * Orthopedics consulted -- felt fracture to be managed non-operatively and pt can be up and weightbearing as tolerated on the LEFT hip -- can take several weeks for pain to subside * Pain control -- oxycodone, tylenol prn * PT/OT eval and treat ordered -- to be seen today or tomorrow (2) Elevated brain natriuretic peptide (BNP) level: * With SOB, cough, mild hypoxia in ER reported and was given lasix 20mg IV x 2 * ECHO without evidence of CHF -- see diagnostic report * CXR without congestive changes * Supplemental O2 as needed to maintain O2 sat >88% -- had been 94% on 2L but patient with significant smoking history and likely baseline closer to 90s -- wean as tolerated * Currently 91% on 1L -- continue to wean * Trop negative (3) COPD (chronic obstructive pulmonary disease): * Mild hypoxia in ER -- single isolated 87% O2 sat reported * Continue Arnuity 1 puff daily, Incruse 1 puff daily, Singulair 10mg daily * Pulmonary consulted -- no signs of radiation pneumonitis on imaging * No indication for systemic steroids at this time * Continue current regiment * Could be worsening of his lung ca -- follow with Dr. Ryan and will need XRT to be eval to have on Wednesday (was supposed to have today) * No evidence of PNA * 91% on RA (4) Atrial fibrillation: * Rate controlled - continue propranolol 40mg PO BID * Continue coumadin 2mg daily * INR 2.2 * Repeat INR in AM * Will also add TSH to AM labs as we do not have any record of this ever being checked (5) Small cell lung 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: * s/p chemo * Continue outpatient followup for XRT -- to be re-eval by Dr. Ryan for treatment on Wednesday BPH * Continue Flomax 0.4mg HS Schizophrenia * Stable * Continue Haldol 3mg PO BID, Cogentin 1mg daily, Vistaril 25mg BID HLD * Continue atorvastatin 20mg HS Hypokalemia * K 3.3 on AM labs -- had been given lasix 20mg IV x 2 in ER * Ordered 20meq PO x 1 * BMP in AM Elevated Tbili * Tbili 1.7, direct 0.3. Does not have abdominal pain on examination * CTA/P with enlargement of 37mm cystic lesion pancreatic head with ductal dilation ?neoplasm. * GI consulted -- patient without want for eval at this time but if he decides he to change his mind would consider EUS with [facility] (although this could possible be done outpt unless patient to develop symptoms/abd pain) * Continue to trend LFTs in AM DVT Prophylaxis -- Patient on coumadin 2mg daily for afib, INR therapeutic. INR in AM Dispo: PT/OT evals pending May need 2 step prior to d/c to see if he will need O2 at discharge given possibly related to lung ca? Admission and Anticipated Discharge Date Admission Date: July 11, 2020 Subjective Patient evaluated this morning. Had been seen by orthopedics who did not feel surgery warranted at this time and patient may weight bear as tolerated and this may take several weeks to heal. Pain currently improved from admission but would like a dose of pain medication currently, although appears comfortable sitting upright in bed eating lunch. Stated shortness of breath, but this appears more chronic in nature as he states he has been chronically short of breath. Sputum production chronic as well. He does note he thinks wheezing slightly worse but no issues with compliance with inhalers [facility]ER. Discussed with his history of smoking 50pack year, he may have element of emphysema as well and his oxygen saturations are likely closer to 90 and if we have him on O2 unnessecarily that may depress his respiratory drive. Will try weaning this afternoon. Discussed chest xray without congestive findings at this time. ECHO also with normal pumping function. He would still like time to think about whether he would like follow up for pancreatic cyst that has enlarged. Also will hold off on XRT today and plan for follow up on wednesday after discussion with Dr. Ryan. No chest pain reported, abdominal pain, nausea or vomiting. Improved appetite today and does admit to some anorexia and dehydration prior to admission that made his legs weak and caused fall. Denies any urinary symptoms suggestive of UTI. No fevers reported. Will have PT/OT evaluate this afternoon given no plans for surgery. Review of Systems Review of Systems: All systems reviewed & are unremarkable except as noted in HPI & below Physical Exam Constitutional: well developed, + ill appearing (chronically ill appearing) and comfortable; no acute distress Eyes: PERRL, conjunctivae normal, anicteric sclerae ENMT: dry mm Neck: trachea midline, no thyromegaly normal visual inspection Respiratory: normal respiratory effort and able to speak in complete sentences; no labored breathing Auscultation: + diminished lung sounds coarse breath sounds throughout on 2L NC Cardiovascular: Rate/Rhythm: + irregularly irregular Heart Sounds: no murmur Extremities: no edema Gastrointestinal (Abdomen): normal bowel sounds, soft, nontender, no hepatosplenomegaly Inspection/Auscultation: abdomen normal to inspection Musculoskeletal: Head/Neck/Chest: normocephalic tenderness to palpation over LEFT greater trochanter pain with ends or ROM but able to flex hip and internal/externally rotate with minimal discomfort Skin: no jaundice warm, dry Neurologic: PERRL, EOMI, accommodation nl, no face palsy, no dysarthria Psychiatric: Orientation: alert and oriented x 3 Results & Data Results & Data ([facility]) Vital Signs (Past 12 Hours) Vital Signs Temp Pulse Pulse Resp BP Pulse Ox 07/12/20 16:00 97 H 93/59 L 91 07/12/20 15:26 37.2 C 89 16 83/47 L 93 07/12/20 13:54 90 07/12/20 13:40 94 07/12/20 08:04 36.9 C 61 18 107/72 94 Laboratory Results 07/12/20 07/12/20 07/12/20 Range/Units Unknown 05:40 05:40 WBC (4.8-10.8) K/uL RBC (4.7-6.1) M/uL Hgb (14.0-18.0) g/dL Hct (42-52) % MCV (80-100) fL MCH (25-34) pg MCHC (32-36) g/dL RDW Std Deviation (36.4-46.3) fL RDW Coeff of Ivis (11.5-14.5) % Plt Count (130-400) K/uL MPV (7.4-10.4) fL Immature Gran % (Auto) % Neut % (Auto) % Lymph % (Auto) % Coles % (Auto) % Eos % (Auto) % Baso % (Auto) % Neut # (Auto) (1.4-6.5) K/uL Lymph # (Auto) (1.2-3.4) K/uL Coles # (Auto) (0.11-0.59) K/uL Eos # (Auto) (0-0.5) K/uL Baso # (Auto) (0-0.2) K/uL Immature Gran # (Auto) (0.00-0.02) K/uL PT (9.0-12.0) Seconds INR (0.9-1.1) Sodium 132 L (136-145) mmol/L Potassium 3.3 L (3.5-5.1) mmol/L Chloride 99 (98-107) mmol/L Carbon Dioxide 30 (21-32) mmol/L Anion Gap 3.0 (3-11) BUN 24 H (7-18) mg/dl Creatinine 0.89 (0.6-1.4) mg/dl Est Cr Clr Drug Dosing 80.4 ml/min Est GFR ( Amer) 98.3 Est GFR (Non-Af Amer) 84.8 BUN/Creatinine Ratio 27.4 H (10-20) Glucose 97 (70-99) mg/dl Lactate (0.4-2.0) mmol/L Calcium 7.8 L (8.5-10.1) mg/dl Total Bilirubin 1.7 H (0.2-1) mg/dl Direct Bilirubin 0.3 H (0-0.2) mg/dl AST 13 L (15-37) U/L ALT 19 (12-78) U/L Alkaline Phosphatase 90 (45-117) U/L Total Protein 5.7 L (6.4-8.2) gm/dl Albumin 2.9 L (3.4-5.0) gm/dl Urine Color Urine Appearance (Clear) Urine pH (4.5-7.5) Ur Specific [place] (1.000-1.030) Urine Protein (Negative) Urine Glucose (UA) (Negative) Urine Ketones (Negative) Urine Blood (Negative) Urine Nitrite (Negative) Urine Bilirubin (Negative) Urine Urobilinogen (Negative) Ur Leukocyte Esterase (Negative) Urine WBC (Auto) (0-5) /hpf Urine RBC (Auto) (0-4) /hpf U Hyaline Cast (Auto) (0-5) /lpf U Epithel Cells (Auto) (0-5) /lpf Urine Bacteria (Auto) (Negative) Nasal Screen MRSA (PCR) Negative (Negative) COVID-19 Eval Order COVID-19 PCR (Negative) Hepatitis C Ab Screen Neg (Neg) Influenza Type A (PCR) (Neg) Influenza Type B (PCR) (Neg) RSV (RT-PCR) (Neg) SARS-CoV-2, RNA, NAAT (NEGATIVE) 07/12/20 07/12/20 07/11/20 Range/Units 05:40 05:40 21:14 WBC 8.26 (4.8-10.8) K/uL RBC 4.05 L (4.7-6.1) M/uL Hgb 11.9 L (14.0-18.0) g/dL Hct 35.0 L (42-52) % MCV 86.4 (80-100) fL MCH 29.4 (25-34) pg MCHC 34.0 (32-36) g/dL RDW Std Deviation 41.5 (36.4-46.3) fL RDW Coeff of Ivis 13.0 (11.5-14.5) % Plt Count 128 L (130-400) K/uL MPV 9.7 (7.4-10.4) fL Immature Gran % (Auto) 0.2 % Neut % (Auto) 86.7 % Lymph % (Auto) 8.8 % Coles % (Auto) 0.2 % Eos % (Auto) 4.1 % Baso % (Auto) 0.0 % Neut # (Auto) 7.15 H (1.4-6.5) K/uL Lymph # (Auto) 0.73 L (1.2-3.4) K/uL Coles # (Auto) 0.02 L (0.11-0.59) K/uL Eos # (Auto) 0.34 (0-0.5) K/uL Baso # (Auto) 0.00 (0-0.2) K/uL Immature Gran # (Auto) 0.02 (0.00-0.02) K/uL PT 22.4 H (9.0-12.0) Seconds INR 2.2 H (0.9-1.1) Sodium (136-145) mmol/L Potassium (3.5-5.1) mmol/L Chloride (98-107) mmol/L Carbon Dioxide (21-32) mmol/L Anion Gap (3-11) BUN (7-18) mg/dl Creatinine (0.6-1.4) mg/dl Est Cr Clr Drug Dosing ml/min Est GFR ( Amer) Est GFR (Non-Af Amer) BUN/Creatinine Ratio (10-20) Glucose (70-99) mg/dl Lactate (0.4-2.0) mmol/L Calcium (8.5-10.1) mg/dl Total Bilirubin (0.2-1) mg/dl Direct Bilirubin (0-0.2) mg/dl AST (15-37) U/L ALT (12-78) U/L Alkaline Phosphatase (45-117) U/L Total Protein (6.4-8.2) gm/dl Albumin (3.4-5.0) gm/dl Urine Color Yellow Urine Appearance Clear (Clear) Urine pH 6.0 (4.5-7.5) Ur Specific [place] 1.037 H (1.000-1.030) Urine Protein Negative (Negative) Urine Glucose (UA) Negative (Negative) Urine Ketones Negative (Negative) Urine Blood 3+ H (Negative) Urine Nitrite Negative (Negative) Urine Bilirubin Negative (Negative) Urine Urobilinogen Negative (Negative) Ur Leukocyte Esterase Negative (Negative) Urine WBC (Auto) 1-5 (0-5) /hpf Urine RBC (Auto) >30 H (0-4) /hpf U Hyaline Cast (Auto) 0 (0-5) /lpf U Epithel Cells (Auto) 5-10 H (0-5) /lpf Urine Bacteria (Auto) Negative (Negative) Nasal Screen MRSA (PCR) (Negative) COVID-19 Eval Order COVID-19 PCR (Negative) Hepatitis C Ab Screen (Neg) Influenza Type A (PCR) (Neg) Influenza Type B (PCR) (Neg) RSV (RT-PCR) (Neg) SARS-CoV-2, RNA, NAAT (NEGATIVE) 07/11/20 07/11/20 07/11/20 Range/Units 19:26 19:26 17:14 WBC (4.8-10.8) K/uL RBC (4.7-6.1) M/uL Hgb (14.0-18.0) g/dL Hct (42-52) % MCV (80-100) fL MCH (25-34) pg MCHC (32-36) g/dL RDW Std Deviation (36.4-46.3) fL RDW Coeff of Ivis (11.5-14.5) % Plt Count (130-400) K/uL MPV (7.4-10.4) fL Immature Gran % (Auto) % Neut % (Auto) % Lymph % (Auto) % Coles % (Auto) % Eos % (Auto) % Baso % (Auto) % Neut # (Auto) (1.4-6.5) K/uL Lymph # (Auto) (1.2-3.4) K/uL Coles # (Auto) (0.11-0.59) K/uL Eos # (Auto) (0-0.5) K/uL Baso # (Auto) (0-0.2) K/uL Immature Gran # (Auto) (0.00-0.02) K/uL PT (9.0-12.0) Seconds INR (0.9-1.1) Sodium (136-145) mmol/L Potassium (3.5-5.1) mmol/L Chloride (98-107) mmol/L Carbon Dioxide (21-32) mmol/L Anion Gap (3-11) BUN (7-18) mg/dl Creatinine (0.6-1.4) mg/dl Est Cr Clr Drug Dosing ml/min Est GFR ( Amer) Est GFR (Non-Af Amer) BUN/Creatinine Ratio (10-20) Glucose (70-99) mg/dl Lactate 1.8 (0.4-2.0) mmol/L Calcium (8.5-10.1) mg/dl Total Bilirubin (0.2-1) mg/dl Direct Bilirubin (0-0.2) mg/dl AST (15-37) U/L ALT (12-78) U/L Alkaline Phosphatase (45-117) U/L Total Protein (6.4-8.2) gm/dl Albumin (3.4-5.0) gm/dl Urine Color Urine Appearance (Clear) Urine pH (4.5-7.5) Ur Specific [place] (1.000-1.030) Urine Protein (Negative) Urine Glucose (UA) (Negative) Urine Ketones (Negative) Urine Blood (Negative) Urine Nitrite (Negative) Urine Bilirubin (Negative) Urine Urobilinogen (Negative) Ur Leukocyte Esterase (Negative) Urine WBC (Auto) (0-5) /hpf Urine RBC (Auto) (0-4) /hpf U Hyaline Cast (Auto) (0-5) /lpf U Epithel Cells (Auto) (0-5) /lpf Urine Bacteria (Auto) (Negative) Nasal Screen MRSA (PCR) (Negative) COVID-19 Eval Order [facility]FluRsv at [facility] COVID-19 PCR NEGATIVE (Negative) Hepatitis C Ab Screen (Neg) Influenza Type A (PCR) Negative (Neg) Influenza Type B (PCR) Negative (Neg) RSV (RT-PCR) Negative (Neg) SARS-CoV-2, RNA, NAAT (NEGATIVE) 07/11/20 07/11/20 Range/Units 15:53 14:10 WBC 11.88 H (4.8-10.8) K/uL RBC 4.43 L (4.7-6.1) M/uL Hgb 13.3 L (14.0-18.0) g/dL Hct 38.5 L (42-52) % MCV 86.9 (80-100) fL MCH 30.0 (25-34) pg MCHC 34.5 (32-36) g/dL RDW Std Deviation 42.2 (36.4-46.3) fL RDW Coeff of Ivis 13.1 (11.5-14.5) % Plt Count 191 (130-400) K/uL MPV 10.4 (7.4-10.4) fL Immature Gran % (Auto) 0.2 % Neut % (Auto) 91.2 % Lymph % (Auto) 7.2 % Coles % (Auto) 1.0 % Eos % (Auto) 0.4 % Baso % (Auto) 0.0 % Neut # (Auto) 10.83 H (1.4-6.5) K/uL Lymph # (Auto) 0.86 L (1.2-3.4) K/uL Coles # (Auto) 0.12 (0.11-0.59) K/uL Eos # (Auto) 0.05 (0-0.5) K/uL Baso # (Auto) 0.00 (0-0.2) K/uL Immature Gran # (Auto) 0.02 (0.00-0.02) K/uL PT (9.0-12.0) Seconds INR (0.9-1.1) Sodium (136-145) mmol/L Potassium (3.5-5.1) mmol/L Chloride (98-107) mmol/L Carbon Dioxide (21-32) mmol/L Anion Gap (3-11) BUN (7-18) mg/dl Creatinine (0.6-1.4) mg/dl Est Cr Clr Drug Dosing ml/min Est GFR ( Amer) Est GFR (Non-Af Amer) BUN/Creatinine Ratio (10-20) Glucose (70-99) mg/dl Lactate (0.4-2.0) mmol/L Calcium (8.5-10.1) mg/dl Total Bilirubin (0.2-1) mg/dl Direct Bilirubin (0-0.2) mg/dl AST (15-37) U/L ALT (12-78) U/L Alkaline Phosphatase (45-117) U/L Total Protein (6.4-8.2) gm/dl Albumin (3.4-5.0) gm/dl Urine Color Urine Appearance (Clear) Urine pH (4.5-7.5) Ur Specific [place] (1.000-1.030) Urine Protein (Negative) Urine Glucose (UA) (Negative) Urine Ketones (Negative) Urine Blood (Negative) Urine Nitrite (Negative) Urine Bilirubin (Negative) Urine Urobilinogen (Negative) Ur Leukocyte Esterase (Negative) Urine WBC (Auto) (0-5) /hpf Urine RBC (Auto) (0-4) /hpf U Hyaline Cast (Auto) (0-5) /lpf U Epithel Cells (Auto) (0-5) /lpf Urine Bacteria (Auto) (Negative) Nasal Screen MRSA (PCR) (Negative) COVID-19 Eval Order COVID-19 PCR (Negative) Hepatitis C Ab Screen (Neg) Influenza Type A (PCR) (Neg) Influenza Type B (PCR) (Neg) RSV (RT-PCR) (Neg) SARS-CoV-2, RNA, NAAT NEGATIVE (NEGATIVE) Diagnostic Findings CT ANGIOGRAM OF THE CHEST FINDINGS: Thyroid: Imaged portions of the thyroid gland are normal in size and attenuation. Thoracic aorta: There is atherosclerotic calcification of the thoracic aorta, which is normal in caliber and demonstrates standard 3-vessel arch anatomy. No dissection is seen. Pulmonary vasculature: The pulmonary trunk is normal in caliber. There are no filling defects identified in main, lobar, or segmental pulmonary branches to suggest pulmonary embolus. Heart: A 2-lead cardiac pacemaker is present in the left chest wall. The heart is normal in size and without pericardial effusion. The coronary arteries are densely calcified. Reflux of contrast in the IVC and hepatic veins suggests cardiac dysfunction. Lungs and pleural spaces: Advanced emphysematous change is similar to previous. There is no airspace consolidation typical for pneumonia or pleural effusion. A mass in the infrahilar right lower lobe is similar in appearance to 06/10/2020 examination. This measures 6.1 x 7.0 x 6.1 cm. This encases and occludes several right lower lobe bronchi. Postobstructive consolidation is seen in the superior segment right lower lobe. Minimal secretions are noted in the distal trachea. Mild diffuse peribronchial thickening is observed. A 3 mm pleural-based nodule in the right middle lobe on image #115 is unchanged. Mediastinum: Enlarged right subcarinal node has increased in size from previous, measuring 5.1 x 4.2 cm. A precarinal node on image #199 measures 1.7 cm in short axis. [place]: There is right hilar adenopathy. A node on image #187 measures 2.8 x 2.5 cm. There are also mildly enlarged right infrahilar lymph nodes. No left hilar adenopathy is seen. Axillae: There is no axillary lymphadenopathy. Upper abdomen: Partially visualized upper abdominal viscera is within normal l imits. Skeletal structures: The skeletal structures are osteopenic. Compression deformities of T12 and L1 are similar to previous. Paravertebral edema suggests that these are subacute. No lytic or blastic bony lesions are seen. Soft tissues: Gynecomastia is noted. IMPRESSION: 1. There is no evidence of pulmonary embolus in the main, lobar, or segmental pulmonary arteries. 2. There is no airspace consolidation typical for pneumonia or pleural effusion. 3. Advanced emphysema and a right lower lobe lung mass are similar in appearance to the 06/10/2020 examination. 4. Mediastinal and right hilar adenopathy are again noted and consistent with fercho metastatic disease. 5. Compression fractures of T12 and L1 are similar in appearance to previous. Paravertebral edema suggests that these are subacute. Clinical correlation will be required. 6. Additional findings as above. CTAdomen/Pelvis IV Contast IMPRESSION: 1. Slight interval enlargement in the size of a 37 mm septated cystic lesion involving the pancreatic head with associated pancreatic ductal dilatation. 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 Further workup is advocated. 2. No evidence of bowel obstruction. No evidence of free air 3. Moderate fecal retention 4. No evidence of intra-abdominal or pelvic metastatic disease 5. Re-demonstration of T12 and L1 vertebral body compression fractures There is a stable sclerotic focus involving the cecal aspect of the right SI joint. ECHO The study was technically difficult LV systolic function is normal There is mild right ventricular hypertrophy There is mild mitral annular calcification Right ventricular systolic pressure is normal XR Hip LT 2V w pelvis IMPRESSION: 1. Equivocal nondisplaced fracture through the superior margin of the greater trochanter of the left hip. An MRI could be obtained in follow-up as deemed clinically appropriate. PG Care Time/CCT Total # of Minutes Spent Total Time Spent with Patient: Total time spent is greater than 50% in coordination of care (as documented) at patient's floor/unit and/or counseling patient: Coding Level of Care Code 68654 Subseq Hosp Care Lvl 3 Diagnoses Fall W19.XXXA Elevated brain natriuretic peptide (BNP) level R79.89 COPD (chronic obstructive pulmonary disease) J44.9 Atrial fibrillation I48.11 Atrial fibrillation type: longstanding persistent Small cell lung 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 C34.90 (1) Atrial fibrillation Atrial fibrillation type: longstanding persistent Qualified Code(s): I48.11 - Longstanding persistent atrial fibrillation
[2020-07-12] MEDS ORDERED: IPRATROPIUM BROMIDE NEB SOLN 0.02% 2.5 ML VIAL NEB PRN (16:40)
[2020-07-12] MEDS: WARFARIN SOD 2 MG TAB PO SCH (16:41)
[2020-07-12 18:16] LABS: Lyme Ab IgG w/WB Rflx Negative (Negative); Lyme Ab IgM w/WB Rflx Negative (Negative)
[2020-07-13 04:55] LABS: Eosinophils # (auto) 0.32 K/uL (0-0.5); Hemoglobin 12.3 g/dL (14.0-18.0); Immature Granulocytes # (auto) 0.08 K/uL (0.00-0.02); Lymphocytes # (auto) 0.83 K/uL (1.2-3.4); Lymphocytes % (auto) 10.3 %; Mean Corpuscular Hemoglobin 29.6 pg (25-34); Mean Corpuscular Hgb Conc 34.2 g/dL (32-36); Mean Corpuscular Volume 86.7 fL (80-100); Mean Platelet Volume 10.7 fL (7.4-10.4); Monocytes # (auto) 0.03 K/uL (0.11-0.59); Monocytes % (auto) 0.4 %; Neutrophils # (auto) 6.82 K/uL (1.4-6.5); Neutrophils % (auto) 84.3 %; Platelet Count 116 K/uL (130-400); RDW Coefficient of Variation 13.1 % (11.5-14.5); RDW Standard Deviation 41.9 fL (36.4-46.3); Red Blood Count 4.15 M/uL (4.7-6.1); White Blood Count 8.08 K/uL (4.8-10.8)
[2020-07-13] MEDS ORDERED: IPRATROPIUM BROMIDE NEB SOLN 0.02% 2.5 ML VIAL INH SCH (12:20)
[2020-07-13] MEDS ORDERED: IPRATROPIUM BROMIDE NEB SOLN 0.02% 2.5 ML VIAL NEB PRN (12:20)
[2020-07-13] MEDS ORDERED: AZITHROMYCIN 500 MG in DEXTROSE 5% 250 ML IV SCH (15:30)
[2020-07-13 17:16] LABS: Albumin Level 2.7 gm/dl (3.4-5.0); BUN Creatinine Ratio 29.1 (10-20); Bilirubin Direct 0.4 mg/dl (0-0.2); Bilirubin,Total 1.4 mg/dl (0.2-1); Calcium 7.7 mg/dl (8.5-10.1); Creatinine Clr Calc Pharmacy 74.5 ml/min; Est GFR (African American) 90.5; Est GFR (Non-African American) 78.1; Ferritin 369.8 ng/ml (8-388); Potassium 3.5 mmol/L (3.5-5.1); Total Protein 5.7 gm/dl (6.4-8.2)
--- NOTE | 2020-07-13 17:56 | Hospitalist Progress Note ---
Date of Service July 13, 2020 Assessment & Plan (1) Pneumonia: * Post-obstructive consolidation seen on CTA of superior segment RLL * Given L shift on CBC without leukocytosis, but complaints of SOB/TRAYLOR and not on O2 at home, requiring supplemental O2 to maintain sat >88% will start abx * Start Ceftriaxone, Azithromycin IV. Small 20mg dose prednisone for possible pneumonitis * Pulmonary on consult-- appreciate rec. * Continue Incruse, Arnuity daily * Xopenex HFA prn, Atrovent neb Q8H prn * Add incentive spirometer, mucinex Q12 * 91% on 1L NC * CXR in AM (2) COPD (chronic obstructive pulmonary disease): * Mild hypoxia in ER -- single isolated 87% O2 sat reported * Continue Arnuity 1 puff daily, Incruse 1 puff daily, Singulair 10mg daily * Pulmonary consulted -- no signs of radiation pneumonitis on imaging per initial eddie * Previous rec to continue current regiment * Could be worsening of his lung ca -- follow with Dr. Ryan and will need XRT to be eval to have on Wednesday (was supposed to have 07/12) * No evidence of PNA * 91% on 1L (3) Fall: * s/p fall x 3 with left hip pain * Xray with equivocal non-displaced fracture through superior margin of the greater trochanter LEFT HIP -- MRI f/u as deemed clinically appropriate * Orthopedics consulted -- felt fracture to be managed non-operatively and pt can be up and weightbearing as tolerated on the LEFT hip -- can take several weeks for pain to subside * Pain control -- oxycodone, tylenol prn. Added voltaren gel prn * PT/OT eval and treat ordered -- pt max assist out of bed with RN this morning and likely to benefit from some rehab post-discharge when stable. Per guards, may be possible for [facility] if coordinated (4) Elevated brain natriuretic peptide (BNP) level: * With SOB, cough, mild hypoxia in ER reported and was given lasix 20mg IV x 2 * ECHO without evidence of CHF -- see diagnostic report * CXR without congestive changes * Supplemental O2 as needed to maintain O2 sat >88% -- had been 94% on 2L but patient with significant smoking history and likely baseline closer to 90s -- wean as tolerated * Currently 91% on 1L -- continue to wean * Trop negative (5) Atrial fibrillation: * Rate controlled - continue propranolol 40mg PO BID * Continue coumadin 2mg daily * INR 2.2 * Repeat INR in AM * TSH low normal 0.341 and T4 high normal 1.58 -- will add T3 and TSI for possible subclinical hyperthyroid (6) Small cell lung 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: * s/p chemo * Continue outpatient followup for XRT -- to be re-eval by Dr. Ryan for treatment on Wednesday * Public Service Administrator consulted -- poor appetite reported BPH * Continue Flomax 0.4mg HS Schizophrenia * Stable * Continue Haldol 3mg PO BID, Cogentin 1mg daily, Vistaril 25mg BID HLD * Continue atorvastatin 20mg HS Hypokalemia * K 3.3 on AM labs -- had been given lasix 20mg IV x 2 in ER * Ordered 20meq PO x 1 * K 3.5 on AM labs * Continue to monitor Elevated Tbili * Tbili 1.7, direct 0.3. Does not have abdominal pain on examination * CTA/P with enlargement of 37mm cystic lesion pancreatic head with ductal dilation ?neoplasm. * GI consulted -- patient without want for eval at this time but if he decides he to change his mind would consider EUS with [facility] (although this could possible be done outpt unless patient to develop symptoms/abd pain) * Tbili 1.4, direct 0.4 Hyponatremia * Na 132 -- ?SIADH. Urine studies added DVT Prophylaxis -- Patient on coumadin 2mg daily for afib, INR therapeutic. INR in AM Dispo: PT/OT evals pending May need 2 step prior to d/c to see if he will need O2 at discharge given possibly related to lung ca? Admission and Anticipated Discharge Date Admission Date: July 11, 2020 Subjective See downtime progress note for Subjective Of note, patient not on O2 [employer]. Confirmed with CLAU Bolanos via CM that patient not on O2 [employer]. Discussed CTA with pulmonary regarding reported post-obstructive consolidation superior seg RLL and given SOB will treat with Azithromycin/Ceftriaxone and give prednisone for some (although not impressed per his previous review of imaging). Physical Exam Constitutional: well developed, + ill appearing (chronically ill appearing) and comfortable; no acute distress Eyes: PERRL, conjunctivae normal, anicteric sclerae Neck: trachea midline, no thyromegaly normal visual inspection Respiratory: normal respiratory effort and able to speak in complete sentences; no labored breathing Auscultation: + diminished lung sounds 91% on 1L NC Cardiovascular: Rate/Rhythm: + irregularly irregular Heart Sounds: no murm ur Extremities: no edema Gastrointestinal (Abdomen): normal bowel sounds, soft, nontender, no hepatosplenomegaly Inspection/Auscultation: abdomen normal to inspection Musculoskeletal: Head/Neck/Chest: normocephalic Skin: no jaundice Neurologic: PERRL, EOMI, accommodation nl, no face palsy, no dysarthria Psychiatric: Orientation: alert and oriented x 3 PG Care Time/CCT Total # of Minutes Spent Total Time Spent with Patient: Total time spent is greater than 50% in coordination of care (as documented) at patient's floor/unit and/or counseling patient: Coding Level of Care Code 93158 Subseq Hosp Care Lvl 3 Diagnoses Pneumonia J18.9 COPD (chronic obstructive pulmonary disease) J44.9 Fall W19.XXXA Elevated brain natriuretic peptide (BNP) level R79.89 Atrial fibrillation I48.11 Atrial fibrillation type: longstanding persistent Small cell lung 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 C34.90 (1) Atrial fibrillation Atrial fibrillation type: longstanding persistent Qualified Code(s): I48.11 - Longstanding persistent atrial fibrillation
[2020-07-13 18:04] LABS: Folate (Folic Acid) 5.8 ng/ml (>5.38)
[2020-07-13] MEDS ORDERED: DICLOFENAC SOD 1% GEL 100 GM TUBE EXT PRN (19:36)
[2020-07-13] MEDS: BENZTROPINE MESYLATE 1 MG TAB PO SCH (20:50)
[2020-07-13] MEDS: FLUTICASONE FUROATE 100MCG 14 PUFFS/INHALER INH SCH (20:50)
[2020-07-13] MEDS: UMECLIDINIUM BROMIDE 62.5MCG/BLISTER 7 PUFFS/INHALER INH SCH (20:51)
[2020-07-13] MEDS: haloperidoL 1 MG TAB PO SCH ×2 (20:51→22:25)
[2020-07-13] MEDS: MONTELUKAST SODIUM 10 MG TABLET PO SCH (20:52)
[2020-07-13] MEDS: PROPRANOLOL HCL 20 MG TAB PO SCH ×2 (20:52→22:26)
[2020-07-13] MEDS: DOCUSATE SODIUM/SENNA 50/8.6MG TAB PO SCH (20:53)
[2020-07-13] MEDS: hydrOXYzine HCl 25 MG TAB PO SCH ×2 (20:53→22:25)
[2020-07-13] MEDS: FERROUS SULFATE 325 MG TAB PO SCH (20:56)
[2020-07-13] MEDS: POLYETHYLENE (MIRALAX) 17 GM PACK PO SCH (20:56)
[2020-07-13 21:11] LABS: INR 1.5 (0.9-1.1); Prothrombin Time 15.6 Seconds (9.0-12.0)
[2020-07-13] MEDS: predniSONE 20 MG TAB PO SCH (21:11)
[2020-07-13] MEDS: cefTRIAXone SODIUM 2,000 MG in DEXTROSE 5% 50 ML IV SCH (21:12)
[2020-07-13] MEDS: WARFARIN SOD 2 MG TAB PO SCH (21:12)
[2020-07-13] MEDS: guaiFENesin 600 MG TABCR PO SCH (22:24)
[2020-07-13] MEDS: TAMSULOSIN HCL 0.4 MG CAP PO SCH (22:25)
[2020-07-13] MEDS: ATORVASTATIN 20 MG TAB PO SCH (22:50)
[2020-07-14 06:14] LABS: Basophils # (auto) 0.01 K/uL (0-0.2); Basophils % (auto) 0.1 %; Eosinophils # (auto) 0.13 K/uL (0-0.5); Eosinophils % (auto) 1.7 %; Hematocrit (blood only) 33.8 % (42-52); Hemoglobin 11.6 g/dL (14.0-18.0); Immature Granulocytes # (auto) 0.18 K/uL (0.00-0.02); Immature Granulocytes % (auto) 2.3 %; Lymphocytes # (auto) 0.73 K/uL (1.2-3.4); Lymphocytes % (auto) 9.3 %; Mean Corpuscular Hemoglobin 29.7 pg (25-34); Mean Corpuscular Hgb Conc 34.3 g/dL (32-36); Mean Corpuscular Volume 86.4 fL (80-100); Mean Platelet Volume 10.5 fL (7.4-10.4); Monocytes # (auto) 0.02 K/uL (0.11-0.59); Monocytes % (auto) 0.3 %; Neutrophils # (auto) 6.75 K/uL (1.4-6.5); Neutrophils % (auto) 86.3 %; Platelet Count 117 K/uL (130-400); RDW Coefficient of Variation 12.8 % (11.5-14.5); RDW Standard Deviation 41.1 fL (36.4-46.3); Red Blood Count 3.91 M/uL (4.7-6.1); White Blood Count 7.82 K/uL (4.8-10.8)
[2020-07-14 06:22] LABS: INR 1.5 (0.9-1.1); Prothrombin Time 15.2 Seconds (9.0-12.0)
[2020-07-14 06:51] LABS: Albumin Level 2.6 gm/dl (3.4-5.0); BUN Creatinine Ratio 28.2 (10-20); Bilirubin Direct 0.3 mg/dl (0-0.2); Calcium 7.9 mg/dl (8.5-10.1); Creatinine Clr Calc Pharmacy 70.9 ml/min; Est GFR (African American) 85.1; Est GFR (Non-African American) 73.4; Potassium 3.8 mmol/L (3.5-5.1)
[2020-07-14 06:53] LABS: Bilirubin,Total 1.6 mg/dl (0.2-1); Total Protein 5.9 gm/dl (6.4-8.2)
[2020-07-14] MEDS: FLUTICASONE FUROATE 100MCG 14 PUFFS/INHALER INH SCH (09:02)
[2020-07-14] MEDS: DOCUSATE SODIUM/SENNA 50/8.6MG TAB PO SCH (09:03)
[2020-07-14] MEDS: hydrOXYzine HCl 25 MG TAB PO SCH ×2 (09:03→20:07)
[2020-07-14] MEDS: UMECLIDINIUM BROMIDE 62.5MCG/BLISTER 7 PUFFS/INHALER INH SCH (09:03)
[2020-07-14] MEDS: haloperidoL 1 MG TAB PO SCH ×2 (09:03→20:04)
[2020-07-14] MEDS: POLYETHYLENE (MIRALAX) 17 GM PACK PO SCH (09:04)
[2020-07-14] MEDS: FERROUS SULFATE 325 MG TAB PO SCH (09:04)
[2020-07-14] MEDS: predniSONE 20 MG TAB PO SCH (09:04)
[2020-07-14] MEDS: guaiFENesin 600 MG TABCR PO SCH ×2 (09:04→20:06)
[2020-07-14] MEDS: BENZTROPINE MESYLATE 1 MG TAB PO SCH (09:04)
[2020-07-14] MEDS: MONTELUKAST SODIUM 10 MG TABLET PO SCH (09:04)
[2020-07-14] MEDS: PROPRANOLOL HCL 20 MG TAB PO SCH ×2 (09:05→20:05)
--- NOTE | 2020-07-14 09:28 | Orthopedic Progress Note ---
Date of Service July 14, 2020 Assessment & Plan (1) Fracture of greater trochanter of left femur: Overall he seems stable. He needs to continue to work with physical therapy with ambulation. He normally uses a cane to ambulate but he might need a walker for few weeks. This fracture usually takes about 6 weeks to heal. Present on Admission?: Yes Admission and Anticipated Discharge Date Admission Date: July 11, 2020 Regino Ball was seen and examined at bedside this morning. He is still having a lot of pain in his left hip. He did not do well with physical therapy on Wednesday. I was not able to review this therapy note from yesterday. He still having lateral sided hip pain. He is comfortable when he is lying down but he is difficult time ambulating. Otherwise he has no new complaints. Physical Exam Physical Exam: On physical examination of the left hip, all of his pain is located at the greater trochanteric region. Unable to flex his hip about 45 degrees before he gets little tight but he does not seem to have too much pain. Unable to do about 20 degrees of internal and external rotation without too much pain. Any pain that he has is located laterally on the hip in the area of the trochanter. Results & Data ([facility]) Vital Signs (Past 12 Hours) Vital Signs Temp Pulse Resp BP Pulse Ox 07/14/20 07:35 36.5 C 83 16 94/71 L 96 07/13/20 23:30 36.5 C 71 20 111/70 94 PG Care Time/CCT Total # of Minutes Spent Total Time Spent with Patient: Total time spent is greater than 50% in coordination of care (as documented) at patient's floor/unit and/or counseling patient: Coding Level of Care Code 88117 Subseq Hosp Care Lvl 1 Diagnoses Fracture of greater trochanter of left femur S72.112A
--- NOTE | 2020-07-14 09:38 | XRay Report ---
XR chest 2V PA/lateral CLINICAL HISTORY: shortness of breath; follow-up COMPARISON STUDY: Chest CT and chest radiograph July 11, 2020. FINDINGS: Dual lead left-sided pacemaker is in place. There is no pneumothorax or pleural effusion. E mphysema is noted with lung hyperexpansion. There is flattening of the hemidiaphragms. Right lower lo be mass is better depicted on prior chest CT of July 11, 2020. Interstitial thickening has develop ed. Cardiomediastinal silhouette is stable. Lateral view again demonstrates T12 and L1 compression fr actures. IMPRESSION: 1. Interval development of interstitial thickening. This favors pulmonary edema although an infectiou s process could appear similar. 2. Right lower lobe mass, better depicted on chest CT July 11, 2020. 3. Emphysema. ACT 112: Negative or not required by law. Electronically signed by: Bakari Trevino M.D. 07/14/2020 9:37 AM
--- NOTE | 2020-07-14 09:47 | Hospitalist Progress Note ---
Date of Service July 14, 2020 Assessment & Plan (1) Pneumonia: * Post-obstructive consolidation seen on CTA of superior segment RLL this is clouded by the fact that the patient and his concurrent lung cancer with abnormal imaging and a baseline history of COPD * Pulmonary on consult-- appreciate rec. * Continue Incruse, Arnuity daily * Xopenex HFA prn, Atrovent neb Q8H prn * Add incentive spirometer, mucinex Q12 * 91% on 1L NC (2) COPD (chronic obstructive pulmonary disease): * Continue Arnuity 1 puff daily, Incruse 1 puff daily, Singulair 10mg daily * Pulmonary consulted -- no signs of radiation pneumonitis on imaging per initial read * Could be worsening of his lung ca -- follow with Dr. Ryan and will need XRT to be eval to have on Wednesday (was supposed to have 07/12) * No evidence of PE * 91% on 1L * On prednisone 20 (3) Fall: * s/p fall x 3 with nonoperative left greater trochanteric fracture evidence on imaging * Orthopedics consulted -- felt fracture to be managed non-operatively and pt can be up and weightbearing as tolerated on the LEFT hip -- can take several weeks for pain to subside * Pain control -- oxycodone, will add scheduled Tylenol Lidoderm patches the patient is too painful to walk on 07/14/2020 * PT/OT eval and treat ordered -- pt max assist out of bed with RN this morning and likely to benefit from some rehab post-discharge when stable. (4) Elevated brain natriuretic peptide (BNP) level: * ECHO without evidence of CHF -- see diagnostic report * CXR without congestive changes * Supplemental O2 as needed to maintain O2 sat >88% -- had been 94% on 2L but patient with significant smoking history and likely baseline closer to 90s -- wean as tolerated * Currently 91% on 1L -- continue to wean * Trop negative (5) Atrial fibrillation: * Rate controlled - continue propranolol 40mg PO BID * INR low will increase coumadin 07/14 * TSH low normal 0.341 and T4 high normal 1.58 -- will add T3 and TSI for possible subclinical hyperthyroid (6) Small cell lung 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: * s/p chemo * Continue outpatient followup for XRT -- to be re-eval by Dr. Ryan for treatment on Wednesday * It Communications Specialist consulted -- poor appetite reported BPH * Continue Flomax 0.4mg HS Schizophrenia * Stable * Continue Haldol 3mg PO BID, Cogentin 1mg daily, Vistaril 25mg BID HLD * Continue atorvastatin 20mg HS Hypokalemia * K 3.3 on AM labs -- had been given lasix 20mg IV x 2 in ER * Ordered 20meq PO x 1 * K 3.5 on AM labs * Continue to monitor Elevated Tbili * Tbili 1.7, direct 0.3. Does not have abdominal pain on examination * CTA/P with enlargement of 37mm cystic lesion pancreatic head with ductal dilation ?neoplasm, IPMN?. * GI consulted -- patient without want for eval at this time but if he decides he to change his mind would consider EUS with [facility] (although this could possible be done outpt unless patient to develop symptoms/abd pain) * Tbili 1.4, direct 0.4 Hyponatremia * Na 132 -- ?SIADH. Urine studies added DVT Prophylaxis -- Patient on coumadin 2mg daily for afib, INR therapeutic. INR in AM Dispo: PT/OT evals pending May need 2 step prior to d/c to see if he will need O2 at discharge given possibly related to lung ca? Admission and Anticipated Discharge Date Admission Date: July 11, 2020 Subjective The patient is with significant pain limits his ambulation. The guards at the bedside also [facility] and the patient would not be allowed to have his walker in his regular cell subsequently we need to improve his pain to improve his ambulation to transition him to his place of living which is at the intermediate Review of Systems Review of Systems: Mild distress and fatigue no headache, blurry or double vision no speech or swallowing issues no chest pain, pressure or palpitations mild shortness of breath, productive cough audible wheezes no abdominal pain, nausea or vomiting, diarrhea or constipation no dysuria, hematuria or frequency Focal left hip pain at the greater trochanter no back pain, CVA tenderness or radicular pain no bruising, bleeding or rashes no focal signs of weakness or numbness or altered sensation no complaints of anxiety or depression.. Physical Exam Physical Exam: The patient appeared well nourished and normally developed. Vital signs as documented. Head exam is normocephalic atraumatic no scleral icterus Neck is without JVD, thyromegaly, or carotid bruits. Lungs are coarse rhonchi left greater than right Cardiac exam, Rhythm is regular.. No murmurs, rubs or gallops. Abdominal exam reveals normal bowel sounds, soft non tender, no masses Extremities point tenderness at the left greater trochanter Neurologic exam is alert and oriented, no focal loss of strength or sensation Skin is without bruises or rashes Psychologically is without concerns for anxiety or depression. Results & Data Results & Data ([facility]) Vital Signs (Past 12 Hours) Vital Signs Temp Pulse Resp BP Pulse Ox 07/14/20 07:35 97.7 F 83 16 94/71 L 96 07/13/20 23:30 97.7 F 71 20 111/70 94 PG Care Time/CCT Total # of Minutes Spent Total Time Spent with Patient: Total time spent is greater than 50% in coordination of care (as documented) at patient's floor/unit and/or counseling patient: Coding Level of Care Code 23659 Subseq Hosp Care Lvl 3 Diagnoses Pneumonia J18.9 COPD (chronic obstructive pulmonary disease) J44.9 Fall W19.XXXA Elevated brain natriuretic peptide (BNP) level R79.89 Atrial fibrillation I48.11 Atrial fibrillation type: longstanding persistent Small cell lung 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 C34.90 (1) Atrial fibrillation Atrial fibrillation type: longstanding persistent Qualified Code(s): I48.11 - Longstanding persistent atrial fibrillation
[2020-07-14] MEDS: cefTRIAXone SODIUM 2,000 MG in DEXTROSE 5% 50 ML IV SCH (14:48)
[2020-07-14] MEDS: WARFARIN SOD 2 MG TAB PO SCH (15:22)
[2020-07-14] MEDS ORDERED: AZITHROMYCIN 250 MG in DEXTROSE 5% 250 ML IV SCH (15:30)
[2020-07-14] MEDS ORDERED: WARFARIN SOD 0.5 MG TAB PO ONE (15:45)
[2020-07-14] MEDS: TAMSULOSIN HCL 0.4 MG CAP PO SCH (20:03)
[2020-07-14] MEDS: ATORVASTATIN 20 MG TAB PO SCH (20:05)
[2020-07-14] MEDS: oxyCODONE HCL IR 5 MG TAB (IMMEDIATE RELEASE) PO PRN (20:07)
[2020-07-14] MEDS: ACETAMINOPHEN 500 MG TAB PO SCH (20:07)
[2020-07-15 07:46] LABS: INR 1.6 (0.9-1.1); Prothrombin Time 16.7 Seconds (9.0-12.0)
[2020-07-15] MEDS: FLUTICASONE FUROATE 100MCG 14 PUFFS/INHALER INH SCH (07:57)
[2020-07-15] MEDS: BENZTROPINE MESYLATE 1 MG TAB PO SCH (07:58)
[2020-07-15] MEDS: haloperidoL 1 MG TAB PO SCH ×2 (07:59→20:56)
[2020-07-15] MEDS: UMECLIDINIUM BROMIDE 62.5MCG/BLISTER 7 PUFFS/INHALER INH SCH (07:59)
[2020-07-15] MEDS: FERROUS SULFATE 325 MG TAB PO SCH (07:59)
[2020-07-15] MEDS: POLYETHYLENE (MIRALAX) 17 GM PACK PO SCH (08:00)
[2020-07-15] MEDS: PROPRANOLOL HCL 20 MG TAB PO SCH ×2 (08:00→20:56)
[2020-07-15] MEDS: guaiFENesin 600 MG TABCR PO SCH ×2 (08:01→20:57)
[2020-07-15] MEDS: hydrOXYzine HCl 25 MG TAB PO SCH ×2 (08:01→20:57)
[2020-07-15] MEDS: predniSONE 20 MG TAB PO SCH (08:01)
[2020-07-15] MEDS: MONTELUKAST SODIUM 10 MG TABLET PO SCH (08:01)
[2020-07-15] MEDS: ACETAMINOPHEN 500 MG TAB PO SCH ×3 (08:01→20:57)
[2020-07-15] MEDS: AZITHROMYCIN 250 MG TAB PO SCH (08:01)
[2020-07-15] MEDS: DOCUSATE SODIUM/SENNA 50/8.6MG TAB PO SCH (08:01)
[2020-07-15 10:27] LABS: Hematocrit (blood only) 32.9 % (42-52); Hemoglobin 11.4 g/dL (14.0-18.0); Mean Corpuscular Hemoglobin 30.1 pg (25-34); Mean Corpuscular Hgb Conc 34.7 g/dL (32-36); Mean Corpuscular Volume 86.8 fL (80-100); Mean Platelet Volume 11.3 fL (7.4-10.4); Platelet Count 118 K/uL (130-400); RDW Standard Deviation 41.4 fL (36.4-46.3); Red Blood Count 3.79 M/uL (4.7-6.1); White Blood Count 5.48 K/uL (4.8-10.8)
[2020-07-15 10:28] LABS: Albumin Level 2.7 gm/dl (3.4-5.0); Calcium 8.8 mg/dl (8.5-10.1); Creatinine Clr Calc Pharmacy 65.7 ml/min; Est GFR (African American) 77.6; Potassium 3.7 mmol/L (3.5-5.1)
[2020-07-15 10:41] LABS: Albumin Globulin Ratio 0.9 (0.9-2); Globulin 3.1 gm/dl (2.5-4.0); Total Protein 5.8 gm/dl (6.4-8.2)
--- NOTE | 2020-07-15 14:03 | Hospitalist Progress Note ---
Date of Service July 15, 2020 Assessment & Plan (1) Pneumonia: * Post-obstructive consolidation seen on CTA of superior segment RLL this is clouded by the fact that the patient and his concurrent lung cancer with abnormal imaging and a baseline history of COPD * Pulmonary on consult-- appreciate rec. * Continue Incruse, Arnuity daily * Xopenex HFA prn, Atrovent neb Q8H prn * Add incentive spirometer, mucinex Q12 * 91% on 1L NC (2) COPD (chronic obstructive pulmonary disease): * Continue Arnuity 1 puff daily, Incruse 1 puff daily, Singulair 10mg daily * Pulmonary consulted -- no signs of radiation pneumonitis on imaging per initial read * Could be worsening of his lung ca -- follow with Dr. Ryan and will need XRT - eval this afternoon * No evidence of PE * 91% on 1L * On prednisone 20 (3) Fall: * s/p fall x 3 with nonoperative left greater trochanteric fracture evidence on imaging * Orthopedics consulted -- felt fracture to be managed non-operatively and pt can be up and weightbearing as tolerated on the LEFT hip -- can take several weeks for pain to subside * Pain control -- oxycodone, will add scheduled Tylenol Lidoderm patches the patient is too painful to walk on 07/14/2020 * PT/OT eval and treat ordered -- pt max assist out of bed with RN this morning and likely to benefit from some rehab post-discharge when stable. (4) Elevated brain natriuretic peptide (BNP) level: * ECHO without evidence of CHF -- see diagnostic report * CXR without congestive changes * Supplemental O2 as needed to maintain O2 sat >88% -- had been 94% on 2L but patient with significant smoking history and likely baseline closer to 90s -- wean as tolerated * Currently 91% on 1L -- continue to wean * Trop negative (5) Atrial fibrillation: * Rate controlled - continue propranolol 40mg PO BID * INR low coumadin increased 07/14 - 1.6 today, recheck tomorrow * TSH low normal 0.341 and T4 high normal 1.58 -- T3 low, TSI pending * (6) Small cell lung 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: * s/p chemo * Continue outpatient followup for XRT -- to be re-eval by Dr. Ryan for treatment this afternoon * Quality Control Analyst consulted -- poor appetite reported (7) BPH (benign prostatic hyperplasia): * Continue Flomax 0.4mg HS (8) Hyponatremia: Mild - 133 Urine sodium 48, urine osmolality 703, serum osmolality 284 Will order am cortisol (9) Schizophrenia: * Stable * Continue Haldol 3mg PO BID, Cogentin 1mg daily, Vistaril 25mg BID (10) Elevated bilirubin: Resolved * Tbili 1.7, direct 0.3. Does not have abdominal pain on examination * CTA/P with enlargement of 37mm cystic lesion pancreatic head with ductal dilation ?neoplasm, IPMN?. * GI consulted -- patient without want for eval at this time but if he decides he to change his mind would consider EUS with [facility] (although this could possible be done outpt unless patient to develop symptoms/abd pain) (11) Hyperlipidemia: * Continue atorvastatin 20mg HS (12) DVT prophylaxis: -- Patient on coumadin 2.5 mg daily for afib, INR subtherapeutic at 1.6 - coumadin was increased yesterday, will recheck am. Platelets are low, will avoid bridging. INR in AM Dispo: PT/OT evals pending May need 2 step prior to d/c to see if he will need O2 at discharge given possibly related to lung ca? Admission and Anticipated Discharge Date Admission Date: July 11, 2020 Subjective Mr. Nichols reports that his breathing is somewhat better today and he is feeling a little bit better today. No cough. Review of Systems Constitutional: no fever, no chills and no body aches Respiratory: no cough and no wheezing Cardiovascular: no chest pain, no dyspnea and no palpitations Gastrointestinal: no abdominal pain, no nausea and no vomiting Genitourinary: no dysuria and no urinary hesitancy Musculoskeletal: no back pain and no joint pain Integumentary: no rash Physical Exam Physical Exam: General: no distress Eyes: normal inspection, PERLL Respiratory: chest non tender, clear to auscultation, normal breath sounds, no respiratory distress, no accessory muscle use Cardiac: regular rate and rhythm, no rub or gallop, no murmur, no jvd GI/: active bowel sounds, no abd pain or tenderness, soft, non distended Extremities: normal range of motion, normal strength, non tender, left upper extremity edema Neuro/Psych: alert and oriented x 3, normal mood and affect Skin: normal color, dry Results & Data Results & Data ([facility]) Vital Signs (Past 12 Hours) Vital Signs Temp Pulse Resp BP Pulse Ox 07/15/20 07:25 36.7 C 88 16 114/76 90 PG Care Time/CCT Total # of Minutes Spent Total Time Spent with Patient: Total time spent is greater than 50% in coordination of care (as documented) at patient's floor/unit and/or counseling patient: Coding Level of Care Code 90716 Subseq Hosp Care Lvl 3 Diagnoses Pneumonia J18.9 COPD (chronic obstructive pulmonary disease) J44.9 Fall W19.XXXA Elevated brain natriuretic peptide (BNP) level R79.89 Atrial fibrillation I48.11 Atrial fibrillation type: longstanding persistent Small cell lung 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 C34.90 BPH (benign prostatic hyperplasia) N40.0 Hyponatremia E87.1 Schizophrenia F20.9 Elevated bilirubin R17 Hyperlipidemia E78.5 DVT prophylaxis Z29.9 (1) Atrial fibrillation Atrial fibrillation type: longstanding persistent Qualified Code(s): I48.11 - Longstanding persistent atrial fibrillation
[2020-07-15] MEDS: WARFARIN SOD 2.5 MG TAB PO SCH (15:15)
[2020-07-15] MEDS: cefTRIAXone SODIUM 2,000 MG in DEXTROSE 5% 50 ML IV SCH (15:15)
--- NOTE | 2020-07-15 17:30 | Ultrasound Report ---
LEFT UPPER EXTREMITY VENOUS DOPPLER HISTORY: Left arm edema COMPARISON STUDY: None. FINDINGS: The left internal jugular vein is patent. There is occlusive thrombus seen within the left subclavian, axillary, and basilic veins. The left brachial, ulnar, radial veins appear patent. IMPRESSION: Left upper extremity DVT as described above. ACT 112: Negative or not required by law. Electronically signed by: Layton Dominguez M.D. 07/15/2020 5:28 PM
[2020-07-15 19:42] LABS: Partial Thromboplastin Ratio 1.3; Partial Thromboplastin Time 35.5 Seconds (21.0-31.0)
[2020-07-15] MEDS: Heparin IV Adult Wt-Based Standard *NO* Bolus Protocol IV SCH ×2 (20:36→20:45)
[2020-07-15] MEDS: HEPARIN SODIUM/DEXTROSE 25,000 UNITS/500 ML BAG IV SCH (20:36)
[2020-07-15] MEDS: ATORVASTATIN 20 MG TAB PO SCH (20:56)
[2020-07-15] MEDS: TAMSULOSIN HCL 0.4 MG CAP PO SCH (20:57)
[2020-07-15] MEDS ORDERED: ENOXAPARIN 1 MG/KG SC SCH (21:00)
[2020-07-16] MEDS: Heparin IV Adult Wt-Based Standard *NO* Bolus Protocol IV SCH (01:02)
[2020-07-16 03:41] LABS: Partial Thromboplastin Ratio 1.7
[2020-07-16 03:52] LABS: Partial Thromboplastin Time 47.5 Seconds (21.0-31.0)
[2020-07-16 07:40] LABS: Hematocrit (blood only) 31.9 % (42-52); Hemoglobin 10.6 g/dL (14.0-18.0); Mean Corpuscular Hgb Conc 33.2 g/dL (32-36); Mean Corpuscular Volume 87.2 fL (80-100); Mean Platelet Volume 10.1 fL (7.4-10.4); Platelet Count 101 K/uL (130-400); RDW Coefficient of Variation 12.8 % (11.5-14.5); RDW Standard Deviation 41.3 fL (36.4-46.3); Red Blood Count 3.66 M/uL (4.7-6.1); White Blood Count 3.13 K/uL (4.8-10.8)
[2020-07-16 07:53] LABS: INR 1.8 (0.9-1.1); Prothrombin Time 18.5 Seconds (9.0-12.0)
[2020-07-16] MEDS: FLUTICASONE FUROATE 100MCG 14 PUFFS/INHALER INH SCH (07:59)
[2020-07-16] MEDS: UMECLIDINIUM BROMIDE 62.5MCG/BLISTER 7 PUFFS/INHALER INH SCH (08:00)
[2020-07-16] MEDS: ACETAMINOPHEN 500 MG TAB PO SCH ×3 (08:00→20:07)
[2020-07-16] MEDS: haloperidoL 1 MG TAB PO SCH ×2 (08:00→20:06)
[2020-07-16] MEDS: guaiFENesin 600 MG TABCR PO SCH ×2 (08:01→20:07)
[2020-07-16] MEDS: MONTELUKAST SODIUM 10 MG TABLET PO SCH (08:01)
[2020-07-16] MEDS: DOCUSATE SODIUM/SENNA 50/8.6MG TAB PO SCH (08:01)
[2020-07-16] MEDS: FERROUS SULFATE 325 MG TAB PO SCH (08:01)
[2020-07-16] MEDS: PROPRANOLOL HCL 20 MG TAB PO SCH ×2 (08:01→20:07)
[2020-07-16] MEDS: hydrOXYzine HCl 25 MG TAB PO SCH ×2 (08:02→20:07)
[2020-07-16] MEDS: AZITHROMYCIN 250 MG TAB PO SCH (08:02)
[2020-07-16] MEDS: BENZTROPINE MESYLATE 1 MG TAB PO SCH (08:02)
[2020-07-16] MEDS: POLYETHYLENE (MIRALAX) 17 GM PACK PO SCH (08:02)
[2020-07-16] MEDS: predniSONE 20 MG TAB PO SCH (08:02)
[2020-07-16 08:08] LABS: BUN Creatinine Ratio 28.4 (10-20); Calcium 8.4 mg/dl (8.5-10.1); Creatinine Clr Calc Pharmacy 63.9 ml/min; Est GFR (African American) 75.1; Est GFR (Non-African American) 64.8; Potassium 3.3 mmol/L (3.5-5.1)
--- NOTE | 2020-07-16 12:07 | Hospitalist Progress Note ---
Date of Service July 16, 2020 Assessment & Plan (1) Pneumonia: * Post-obstructive consolidation seen on CTA of superior segment RLL this is clouded by the fact that the patient and his concurrent lung cancer with abnormal imaging and a baseline history of COPD * Pulmonary on consult-- appreciate rec. * Continue Incruse, Arnuity daily * Xopenex HFA prn, Atrovent neb Q8H prn * Add incentive spirometer, mucinex Q12 * 91% on 1L NC * Continue ceftriaxone, azithromycin (2) COPD (chronic obstructive pulmonary disease): * Continue Arnuity 1 puff daily, Incruse 1 puff daily, Singulair 10mg daily * Pulmonary consulted -- no signs of radiation pneumonitis on imaging per initial read * Could be worsening of his lung ca -- follow with Dr. Ryan and will need XRT - eval this afternoon * No evidence of PE * 97% on 2L * On prednisone 20 (3) Fall: * s/p fall x 3 with nonoperative left greater trochanteric fracture evidence on imaging * Orthopedics consulted -- felt fracture to be managed non-operatively and pt ca n be up and weightbearing as tolerated on the LEFT hip -- can take several weeks for pain to subside * Pain control -- oxycodone, will add scheduled Tylenol Lidoderm patches the patient is too painful to walk on 07/14/2020 * PT/OT eval and treat ordered -- pt max assist out of bed with RN this morning and likely to benefit from some rehab post-discharge when stable. (4) DVT (deep venous thrombosis): US of left arm with occlusive thrombus seen within the left subclavian, axillary, and basilic veins. Continue heparin gtt while INR subtherapeutic INR 1.8 today - recheck am (5) Elevated brain natriuretic peptide (BNP) level: * ECHO without evidence of CHF -- see diagnostic report * CXR without congestive changes * Supplemental O2 as needed to maintain O2 sat >88% -- had been 94% on 2L but patient with significant smoking history and likely baseline closer to 90s -- wean as tolerated * Trop negative (6) Atrial fibrillation: * Rate controlled - continue propranolol 40mg PO BID * INR low coumadin increased 07/14 - 1.8 today, recheck tomorrow * TSH low normal 0.341 and T4 high normal 1.58 -- T3 low, TSI pending (7) Small cell lung 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: * s/p chemo * XRT eval 07/[address] Ryan * Packing Machine Tender consulted -- poor appetite reported (8) BPH (benign prostatic hyperplasia): * Continue Flomax 0.4mg HS (9) Hyponatremia: Resolved Urine sodium 48, urine osmolality 703, serum osmolality 284 AM cortisol wnl (10) Schizophrenia: * Stable * Continue Haldol 3mg PO BID, Cogentin 1mg daily, Vistaril 25mg BID (11) Elevated bilirubin: Resolved * Tbili 1.7, direct 0.3. Does not have abdominal pain on examination * CTA/P with enlargement of 37mm cystic lesion pancreatic head with ductal dilation ?neoplasm, IPMN?. * GI consulted -- patient without want for eval at this time but if he decides he to change his mind would consider EUS with [facility] (although this could possible be done outpt unless patient to develop symptoms/abd pain) (12) Hyperlipidemia: * Continue atorvastatin 20mg HS (13) DVT prophylaxis: -- Patient on coumadin 2.5 mg daily for afib, INR subtherapeutic at 1.8, continue heparin gtt Dispo: PT/OT evals pending May need 2 step prior to d/c to see if he will need O2 at discharge given possibly related to lung ca? Admission and Anticipated Discharge Date Admission Date: July 11, 2020 Subjective Mr. Nichols reports more coughing today though no sputum. He does not feel sob. No pain or numbness in his left arm. Review of Systems Constitutional: no fever, no chills and no body aches Respiratory: as per Subjective / HPI Cardiovascular: no chest pain and no palpitations Gastrointestinal: no abdominal pain, no nausea and no vomiting Genitourinary: no dysuria and no urinary hesitancy Musculoskeletal: no back pain and no joint pain Integumentary: no rash Physical Exam Physical Exam: General: no distress Eyes: normal inspection, PERLL Respiratory: chest non tender, clear to auscultation, normal breath sounds, no respiratory distress, no accessory muscle use Cardiac: regular rate and rhythm, no rub or gallop, no murmur, edematous left arm, palpable radial pulse GI/: active bowel sounds, no abd pain or tenderness, soft, non distended Extremities: normal range of motion, normal strength, non tender Neuro/Psych: alert and oriented x 3, normal mood and affect Skin: normal color, dry Results & Data Results & Data ([facility]) Vital Signs (Past 12 Hours) Vital Signs Temp Pulse Resp BP Pulse Ox 07/16/20 07:33 36.5 C 85 19 128/80 97 PG Care Time/CCT Total # of Minutes Spent Total Time Spent with Patient: Total time spent is greater than 50% in coordination of care (as documented) at patient's floor/unit and/or counseling patient: Coding Level of Care Code 55833 Subseq Hosp Care Lvl 3 Diagnoses Pneumonia J18.9 COPD (chronic obstructive pulmonary disease) J44.9 Fall W19.XXXA DVT (deep venous thrombosis) I82.409 Elevated brain natriuretic peptide (BNP) level R79.89 Atrial fibrillation I48.11 Atrial fibrillation type: longstanding persistent Small cell lung 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 C34.90 BPH (benign prostatic hyperplasia) N40.0 Hyponatremia E87.1 Schizophrenia F20.9 Elevated bilirubin R17 Hyperlipidemia E78.5 DVT prophylaxis Z29.9 (1) Atrial fibrillation Atrial fibrillation type: longstanding persistent Qualified Code(s): I48.11 - Longstanding persistent atrial fibrillation
[2020-07-16] MEDS: HEPARIN SODIUM/DEXTROSE 25,000 UNITS/500 ML BAG IV SCH (13:01)
[2020-07-16] MEDS: cefTRIAXone SODIUM 2,000 MG in DEXTROSE 5% 50 ML IV SCH (15:20)
[2020-07-16] MEDS: WARFARIN SOD 2.5 MG TAB PO SCH (15:48)
[2020-07-16] MEDS: TAMSULOSIN HCL 0.4 MG CAP PO SCH (20:06)
[2020-07-16] MEDS: ATORVASTATIN 20 MG TAB PO SCH (20:07)
[2020-07-17] MEDS: oxyCODONE HCL IR 5 MG TAB (IMMEDIATE RELEASE) PO PRN (00:32)
[2020-07-17] MEDS: HEPARIN SODIUM/DEXTROSE 25,000 UNITS/500 ML BAG IV SCH (06:22)
[2020-07-17 06:37] LABS: Hematocrit (blood only) 34.1 % (42-52); Hemoglobin 11.6 g/dL (14.0-18.0); Mean Corpuscular Hemoglobin 29.8 pg (25-34); Mean Corpuscular Volume 87.7 fL (80-100); RDW Coefficient of Variation 12.8 % (11.5-14.5); RDW Standard Deviation 41.4 fL (36.4-46.3); Red Blood Count 3.89 M/uL (4.7-6.1); White Blood Count 2.13 K/uL (4.8-10.8)
[2020-07-17 06:59] LABS: INR 1.9 (0.9-1.1); Partial Thromboplastin Ratio 3.1; Prothrombin Time 19.3 Seconds (9.0-12.0)
[2020-07-17 07:03] LABS: Mean Platelet Volume 10.3 fL (7.4-10.4); Platelet Count 97 K/uL (130-400)
[2020-07-17 07:05] LABS: Calcium 8.5 mg/dl (8.5-10.1); Est GFR (African American) 84.1; Est GFR (Non-African American) 72.6; Potassium 3.8 mmol/L (3.5-5.1)
[2020-07-17 07:27] LABS: Partial Thromboplastin Time 87.2 Seconds (21.0-31.0)
[2020-07-17] MEDS: FLUTICASONE FUROATE 100MCG 14 PUFFS/INHALER INH SCH (08:00)
[2020-07-17] MEDS: UMECLIDINIUM BROMIDE 62.5MCG/BLISTER 7 PUFFS/INHALER INH SCH (08:00)
[2020-07-17] MEDS: ACETAMINOPHEN 500 MG TAB PO SCH ×3 (08:01→21:24)
[2020-07-17] MEDS: hydrOXYzine HCl 25 MG TAB PO SCH ×2 (08:01→21:26)
[2020-07-17] MEDS: BENZTROPINE MESYLATE 1 MG TAB PO SCH (08:02)
[2020-07-17] MEDS: DOCUSATE SODIUM/SENNA 50/8.6MG TAB PO SCH (08:02)
[2020-07-17] MEDS: PROPRANOLOL HCL 20 MG TAB PO SCH ×2 (08:02→21:25)
[2020-07-17] MEDS: guaiFENesin 600 MG TABCR PO SCH ×2 (08:02→21:23)
[2020-07-17] MEDS: predniSONE 20 MG TAB PO SCH (08:02)
[2020-07-17] MEDS: MONTELUKAST SODIUM 10 MG TABLET PO SCH (08:02)
[2020-07-17] MEDS: FERROUS SULFATE 325 MG TAB PO SCH (08:02)
[2020-07-17] MEDS: POLYETHYLENE (MIRALAX) 17 GM PACK PO SCH (08:03)
[2020-07-17] MEDS: haloperidoL 1 MG TAB PO SCH ×2 (08:03→21:22)
[2020-07-17 09:45] LABS: Basophils # (auto) 0.03 K/uL (0-0.2); Basophils % (auto) 1.4 %; Eosinophils # (auto) 0.12 K/uL (0-0.5); Eosinophils % (auto) 5.6 %; Immature Granulocytes # (auto) 0.02 K/uL (0.00-0.02); Immature Granulocytes % (auto) 0.9 %; Lymphocytes % (auto) 51.6 %; Monocytes # (auto) 0.02 K/uL (0.11-0.59); Monocytes % (auto) 0.9 %; Neutrophils # (auto) 0.84 K/uL (1.4-6.5); Neutrophils % (auto) 39.6 %
--- NOTE | 2020-07-17 14:12 | Hospitalist Progress Note ---
Date of Service July 17, 2020 Assessment & Plan (1) Pneumonia: * Post-obstructive consolidation seen on CTA of superior segment RLL this is clouded by the fact that the patient and his concurrent lung cancer with abnormal imaging and a baseline history of COPD * Pulmonary on consult-- appreciate rec. * Continue Incruse, Arnuity daily * Xopenex HFA prn, Atrovent neb Q8H prn * Add incentive spirometer, mucinex Q12 * 91% on 1L NC * Continue ceftriaxone, completed 5 days of azithromycin (2) Pancytopenia: Discussed with patient's oncology PA - this is on track for his anand from chemotherapy on July 10. She recommended 480 mcg of Neupogen daily x 2-3 days depending on response Patient continues to be afebrile Continue abx as above Repeat CBC with diff am (3) COPD (chronic obstructive pulmonary disease): * Continue Arnuity 1 puff daily, Incruse 1 puff daily, Singulair 10mg daily * Pulmonary consulted -- no signs of radiation pneumonitis on imaging per initial read * Could be worsening of his lung ca -- follow with Dr. Ryan and will need XRT - eval this afternoon * No evidence of PE * 97% on 2L * Will taper of steroids - 10 mg starting tomorrow x 3 days and then dc (4) Fall: * s/p fall x 3 with nonoperative left greater trochanteric fracture evidence on imaging * Orthopedics consulted -- felt fracture to be managed non-operatively and pt can be up and weightbearing as tolerated on the LEFT hip -- can take several weeks for pain to subside * Pain control -- oxycodone, will add scheduled Tylenol Lidoderm patches the patient is too painful to walk on 07/14/2020 * PT/OT eval and treat ordered - may benefit from some rehab post-discharge when stable. (5) DVT (deep venous thrombosis): US of left arm with occlusive thrombus seen within the left subclavian, axillary, and basilic veins. Continue heparin gtt while INR subtherapeutic INR 1.9 today - recheck this afternoon and may be able to get drip turned off (6) Elevated brain natriuretic peptide (BNP) level: * ECHO without evidence of CHF -- see diagnostic report * CXR without congestive changes * Supplemental O2 as needed to maintain O2 sat >88% -- had been 94% on 2L but patient with significant smoking history and likely baseline closer to 90s -- wean as tolerated * Trop negative (7) Atrial fibrillation: * Rate controlled - continue propranolol 40mg PO BID * INR low coumadin increased 07/14 - 1.9 today, recheck as above * TSH low normal 0.341 and T4 high normal 1.58 -- T3 low, TSI pending (8) Small cell lung 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: * s/p chemo - neutropenia to be treated as above * XRT eval 07/[address] Ryan * Marine Insurance Claim Examiner consulted -- poor appetite reported (9) BPH (benign prostatic hyperplasia): * Continue Flomax 0.4mg HS (10) Hyponatremia: Resolved Urine sodium 48, urine osmolality 703, serum osmolality 284 AM cortisol wnl (11) Schizophrenia: * Stable * Continue Haldol 3mg PO BID, Cogentin 1mg daily, Vistaril 25mg BID (12) Elevated bilirubin: Resolved * Tbili 1.7, direct 0.3. Does not have abdominal pain on examination * CTA/P with enlargement of 37mm cystic lesion pancreatic head with ductal dilation ?neoplasm, IPMN?. * GI consulted -- patient without want for eval at this time but if he decides he to change his mind would consider EUS with [facility] (although this could possible be done outpt unless patient to develop symptoms/abd pain) (13) Hyperlipidemia: * Continue atorvastatin 20mg HS (14) DVT prophylaxis: -- Patient on coumadin 2.5 mg daily for afib, INR subtherapeutic at 1.9, continue heparin gtt Dispo: PT/OT evals May need 2 step prior to d/c to see if he will need O2 at discharge given possibly related to lung ca? Admission and Anticipated Discharge Date Admission Date: July 11, 2020 Supervising Physician Co-Signing Physician Notes chart reviewed and case d/w S Júnior LAU. agree w above Subjective Mr. Nichols continues to have a cough. He denies any pain. He was on room air when I was examining him and asked for oxygen to be put on again as he was feeling a little short of breath Review of Systems Constitutional: no fever, no chills and no body aches Respiratory: as per Subjective / HPI Cardiovascular: no chest pain, no palpitations and no lightheadedness Gastrointestinal: no abdominal pain, no nausea and no vomiting Genitourinary: no dysuria and no urinary hesitancy Musculoskeletal: no back pain and no joint pain Integumentary: no rash Physical Exam Physical Exam: General: no distress Eyes: normal inspection, PERLL Respiratory: chest non tender, rhonchi bilaterally, no respiratory distress, no accessory muscle use Cardiac: regular rate and rhythm, no rub or gallop, no murmur, no edema, no jvd GI/: active bowel sounds, no abd pain or tenderness, soft, non distended Extremities: normal range of motion, normal strength, non tender Neuro/Psych: alert and oriented x 3, normal mood and affect Skin: normal color, dry Results & Data Results & Data ([facility]) Vital Signs (Past 12 Hours) Vital Signs Temp Pulse Resp BP Pulse Ox 07/17/20 07:58 99/70 L 07/17/20 07:23 36.5 C 65 18 89/59 L 96 PG Care Time/CCT Total # of Minutes Spent Total Time Spent with Patient: Total time spent is greater than 50% in coordination of care (as documented) at patient's floor/unit and/or counseling patient: Coding Level of Care Code 00939 Subseq Hosp Care Lvl 3 Diagnoses Pneumonia J18.9 Pancytopenia D61.818 COPD (chronic obstructive pulmonary disease) J44.9 Fall W19.XXXA DVT (deep venous thrombosis) I82.409 Elevated brain natriuretic peptide (BNP) level R79.89 Atrial fibrillation I48.11 Atrial fibrillation type: longstanding persistent Small cell lung 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 C34.90 BPH (benign prostatic hyperplasia) N40.0 Hyponatremia E87.1 Schizophrenia F20.9 Elevated bilirubin R17 Hyperlipidemia E78.5 DVT prophylaxis Z29.9 (1) Atrial fibrillation Atrial fibrillation type: longstanding persistent Qualified Code(s): I48.11 - Longstanding persistent atrial fibrillation
[2020-07-17] MEDS: cefTRIAXone SODIUM 2,000 MG in DEXTROSE 5% 50 ML IV SCH (14:25)
[2020-07-17 15:34] LABS: INR 1.9 (0.9-1.1); Partial Thromboplastin Ratio 2.5; Prothrombin Time 19.3 Seconds (9.0-12.0)
[2020-07-17 15:44] LABS: Partial Thromboplastin Time 70.9 Seconds (21.0-31.0)
[2020-07-17] MEDS: WARFARIN SOD 2.5 MG TAB PO SCH (15:58)
[2020-07-17] MEDS: FILGRASTIM 480 MCG/1.6 ML VIAL SC SCH (16:13)
[2020-07-17] MEDS: TAMSULOSIN HCL 0.4 MG CAP PO SCH (21:23)
[2020-07-17] MEDS: ATORVASTATIN 20 MG TAB PO SCH (21:23)
[2020-07-17 22:18] LABS: Partial Thromboplastin Ratio 1.9
[2020-07-17 22:26] LABS: Partial Thromboplastin Time 53.4 Seconds (21.0-31.0)
[2020-07-18] MEDS: HEPARIN SODIUM/DEXTROSE 25,000 UNITS/500 ML BAG IV SCH (03:15)
[2020-07-18 06:24] LABS: Hematocrit (blood only) 29.9 % (42-52); Hemoglobin 10.2 g/dL (14.0-18.0); Mean Corpuscular Hemoglobin 29.6 pg (25-34); Mean Corpuscular Hgb Conc 34.1 g/dL (32-36); Mean Corpuscular Volume 86.7 fL (80-100); Mean Platelet Volume 9.9 fL (7.4-10.4); Platelet Count 100 K/uL (130-400); RDW Coefficient of Variation 12.8 % (11.5-14.5); Red Blood Count 3.45 M/uL (4.7-6.1); White Blood Count 1.48 K/uL (4.8-10.8)
[2020-07-18 06:27] LABS: INR 1.9 (0.9-1.1); Partial Thromboplastin Ratio 2.4; Prothrombin Time 19.3 Seconds (9.0-12.0)
[2020-07-18 06:33] LABS: BUN Creatinine Ratio 30.3 (10-20); Calcium 8.3 mg/dl (8.5-10.1); Creatinine Clr Calc Pharmacy 81.2 ml/min; Est GFR (African American) 98.8; Est GFR (Non-African American) 85.2; Potassium 3.5 mmol/L (3.5-5.1)
[2020-07-18 06:47] LABS: Partial Thromboplastin Time 65.7 Seconds (21.0-31.0)
[2020-07-18 07:46] LABS: Basophils # (auto) 0.02 K/uL (0-0.2); Basophils % (auto) 1.4 %; Eosinophils # (auto) 0.12 K/uL (0-0.5); Eosinophils % (auto) 8.1 %; Immature Granulocytes # (auto) 0.01 K/uL (0.00-0.02); Immature Granulocytes % (auto) 0.7 %; Lymphocytes # (auto) 0.79 K/uL (1.2-3.4); Lymphocytes % (auto) 53.4 %; Monocytes # (auto) 0.02 K/uL (0.11-0.59); Monocytes % (auto) 1.4 %; Neutrophils # (auto) 0.52 K/uL (1.4-6.5)
[2020-07-18 07:50] LABS: Smudge Cells Present
[2020-07-18] MEDS: BENZTROPINE MESYLATE 1 MG TAB PO SCH (09:02)
[2020-07-18] MEDS: FLUTICASONE FUROATE 100MCG 14 PUFFS/INHALER INH SCH (09:03)
[2020-07-18] MEDS: MONTELUKAST SODIUM 10 MG TABLET PO SCH (09:03)
[2020-07-18] MEDS: FERROUS SULFATE 325 MG TAB PO SCH (09:03)
[2020-07-18] MEDS: PROPRANOLOL HCL 20 MG TAB PO SCH ×2 (09:04→20:44)
[2020-07-18] MEDS: predniSONE 10 MG TABLET PO SCH (09:04)
[2020-07-18] MEDS: guaiFENesin 600 MG TABCR PO SCH ×2 (09:04→20:40)
[2020-07-18] MEDS: haloperidoL 1 MG TAB PO SCH ×2 (09:05→20:39)
[2020-07-18] MEDS: hydrOXYzine HCl 25 MG TAB PO SCH ×2 (09:05→20:38)
[2020-07-18] MEDS: ACETAMINOPHEN 500 MG TAB PO SCH ×3 (09:06→20:40)
[2020-07-18] MEDS: DOCUSATE SODIUM/SENNA 50/8.6MG TAB PO SCH (09:06)
[2020-07-18] MEDS: POLYETHYLENE (MIRALAX) 17 GM PACK PO SCH (09:06)
[2020-07-18] MEDS: UMECLIDINIUM BROMIDE 62.5MCG/BLISTER 7 PUFFS/INHALER INH SCH (09:07)
[2020-07-18] MEDS: FILGRASTIM 480 MCG/1.6 ML VIAL SC SCH (09:54)
[2020-07-18] MEDS ORDERED: WARFARIN SOD 5 MG TAB PO ONE (11:13)
--- NOTE | 2020-07-18 12:18 | Hospitalist Progress Note ---
Date of Service July 18, 2020 Assessment & Plan (1) Pneumonia: * Post-obstructive consolidation seen on CTA of superior segment RLL this is clouded by the fact that the patient and his concurrent lung cancer with abnormal imaging and a baseline history of COPD * Pulmonary on consult-- appreciate rec. * Continue Incruse, Arnuity daily * Xopenex HFA prn, Atrovent neb Q8H prn * Add incentive spirometer, mucinex Q12 * 97% o 2L * Continue ceftriaxone, completed 5 days of azithromycin (2) Pancytopenia: Ongoing, ANC today 520. Afebrile. Discussed with patient's oncology PA - this is on track for his anand from chemotherapy on July 10. She recommended 480 mcg of Neupogen daily x 2-3 days depending on response Continue abx as above Repeat CBC with diff am (3) COPD (chronic obstructive pulmonary disease): * Continue Arnuity 1 puff daily, Incruse 1 puff daily, Singulair 10mg daily * Pulmonary consulted -- no signs of radiation pneumonitis on imaging per initial read * Could be worsening of his lung ca -- follows with Dr. Ryan for XRT * No evidence of PE * 97% on 2L * Will taper of steroids - 10 mg starting tomorrow x 3 days and then dc (4) Fall: * s/p fall x 3 with nonoperative left greater trochanteric fracture evidence on imaging * Orthopedics consulted -- felt fracture to be managed non-operatively and pt can be up and weightbearing as tolerated on the LEFT hip -- can take several weeks for pain to subside * Pain control -- oxycodone, will add scheduled Tylenol Lidoderm patches the patient is too painful to walk on 07/14/2020 - now pain much improved * PT/OT eval and treat ordered (5) DVT (deep venous thrombosis): US of left arm with occlusive thrombus seen within the left subclavian, axillary, and basilic veins. Continue heparin gtt while INR subtherapeutic INR 1.9 again today - will give total of 8 mg warfarin and likely will need daily dosing increased to 3mg especially now that Zithromax discontinued Recheck INR am (6) Elevated brain natriuretic peptide (BNP) level: * ECHO without evidence of CHF -- see diagnostic report * CXR without congestive changes * Supplemental O2 as needed to maintain O2 sat >88% -- had been 94% on 2L but patient with significant smoking history and likely baseline closer to 90s -- wean as tolerated * Trop negative (7) Atrial fibrillation: * Rate controlled - continue propranolol 40mg PO BID * INR low coumadin increased 07/17 - 1.9 today, recheck as above * TSH low normal 0.341 and T4 high normal 1.58 -- T3 low, TSI pending (8) Small cell lung 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: * s/p chemo - neutropenia to be treated as above * XRT eval 07/[address] Ryan * It Help Desk Associate consulted -- poor appetite reported * Patient was to have a port placed this week. This can be rescheduled outpatient. Discussed with oncology and they were ok with that (9) BPH (benign prostatic hyperplasia): * Continue Flomax 0.4mg HS (10) Hyponatremia: Resolved Urine sodium 48, urine osmolality 703, serum osmolality 284 AM cortisol wnl (11) Schizophrenia: * Stable * Continue Haldol 3mg PO BID, Cogentin 1mg daily, Vistaril 25mg BID (12) Elevated bilirubin: Resolved * Tbili 1.7, direct 0.3. Does not have abdominal pain on examination * CTA/P with enlargement of 37mm cystic lesion pancreatic head with ductal dilation ?neoplasm, IPMN?. * GI consulted -- patient without want for eval at this time but if he decides he to change his mind would consider EUS with [facility] (although this could possible be done outpt unless patient to develop symptoms/abd pain) (13) Hyperlipidemia: * Continue atorvastatin 20mg HS (14) DVT prophylaxis: -- Patient on coumadin 3 mg daily, INR subtherapeutic at 1.9, continue heparin gtt Dispo: PT/OT evals - [facility] cannot take patient while getting radiation therapy Admission and Anticipated Discharge Date Admission Date: July 11, 2020 Supervising Physician Co-Signing Physician Notes chart reviewed and case d/w S Júnior LAU. agree w above Subjective Mr. Nichols denies SOB, continues to have mild moist cough, non productive. Reports pain is well controlled Review of Systems Constitutional: no fever, no chills and no body aches Respiratory: as per Subjective / HPI Cardiovascular: no chest pain and no palpitations Gastrointestinal: no abdominal pain and no early satiety Genitourinary: no dysuria and no urinary hesitancy Musculoskeletal: no back pain and no joint pain Integumentary: no rash Physical Exam Physical Exam: General: no distress Eyes: normal inspection, PERLL Respiratory: chest non tender, expiratory bilateral bases, no respiratory distress, no accessory muscle use Cardiac: regular rate and rhythm, no rub or gallop, no murmur, no edema, no jvd GI/: active bowel sounds, no abd pain or tenderness, soft, non distended Extremities: normal range of motion, normal strength, non tender Neuro/Psych: alert and oriented x 3, normal mood and affect Skin: normal color, dry Results & Data Results & Data ([facility]) Vital Signs (Past 12 Hours) Vital Signs Temp Pulse Resp BP Pulse Ox 07/18/20 07:11 36.7 C 88 17 125/77 97 PG Care Time/CCT Total # of Minutes Spent Total Time Spent with Patient: Total time spent is greater than 50% in coordination of care (as documented) at patient's floor/unit and/or counseling patient: Coding Level of Care Code 78508 Subseq Hosp Care Lvl 2 Diagnoses Pneumonia J18.9 Pancytopenia D61.818 COPD (chronic obstructive pulmonary disease) J44.9 Fall W19.XXXA DVT (deep venous thrombosis) I82.409 Elevated brain natriuretic peptide (BNP) level R79.89 Atrial fibrillation I48.11 Atrial fibrillation type: longstanding persistent Small cell lung 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 C34.90 BPH (benign prostatic hyperplasia) N40.0 Hyponatremia E87.1 Schizophrenia F20.9 Elevated bilirubin R17 Hyperlipidemia E78.5 DVT prophylaxis Z29.9 (1) Atrial fibrillation Atrial fibrillation type: longstanding persistent Qualified Code(s): I48.11 - Longstanding persistent atrial fibrillation
[2020-07-18] MEDS: cefTRIAXone SODIUM 2,000 MG in DEXTROSE 5% 50 ML IV SCH (14:35)
[2020-07-18] MEDS: oxyCODONE HCL IR 5 MG TAB (IMMEDIATE RELEASE) PO PRN (15:23)
[2020-07-18] MEDS: WARFARIN SOD 3 MG TAB PO SCH (17:49)
[2020-07-18] MEDS: ATORVASTATIN 20 MG TAB PO SCH (20:38)
[2020-07-18] MEDS: TAMSULOSIN HCL 0.4 MG CAP PO SCH (20:39)
[2020-07-19] MEDS: HEPARIN SODIUM/DEXTROSE 25,000 UNITS/500 ML BAG IV SCH ×2 (00:53→08:17)
[2020-07-19 07:47] LABS: BUN Creatinine Ratio 22.6 (10-20); Calcium 8.6 mg/dl (8.5-10.1); Creatinine Clr Calc Pharmacy 74.2 ml/min; Est GFR (African American) 90.5; Est GFR (Non-African American) 78.1; Potassium 3.8 mmol/L (3.5-5.1)
[2020-07-19 07:50] LABS: INR 2.7 (0.9-1.1); Partial Thromboplastin Ratio 2.4; Prothrombin Time 26.7 Seconds (9.0-12.0)
[2020-07-19 07:55] LABS: Partial Thromboplastin Time 67.9 Seconds (21.0-31.0)
[2020-07-19 08:07] LABS: Hematocrit (blood only) 30.4 % (42-52); Hemoglobin 10.5 g/dL (14.0-18.0); Mean Corpuscular Hemoglobin 29.7 pg (25-34); Mean Corpuscular Hgb Conc 34.5 g/dL (32-36); Mean Corpuscular Volume 85.9 fL (80-100); Mean Platelet Volume 9.5 fL (7.4-10.4); Platelet Count 93 K/uL (130-400); RDW Coefficient of Variation 12.7 % (11.5-14.5); Red Blood Count 3.54 M/uL (4.7-6.1); White Blood Count 0.99 K/uL (4.8-10.8)
[2020-07-19 08:09] LABS: Basophils # (auto) 0.01 K/uL (0-0.2); Eosinophils # (auto) 0.08 K/uL (0-0.5); Eosinophils % (auto) 8.1 %; Lymphocytes # (auto) 0.66 K/uL (1.2-3.4); Lymphocytes % (auto) 66.7 %; Monocytes # (auto) 0.07 K/uL (0.11-0.59); Monocytes % (auto) 7.1 %; Neutrophils # (auto) 0.17 K/uL (1.4-6.5); Neutrophils % (auto) 17.1 %
[2020-07-19] MEDS: POLYETHYLENE (MIRALAX) 17 GM PACK PO SCH (09:19)
[2020-07-19] MEDS: hydrOXYzine HCl 25 MG TAB PO SCH ×2 (09:19→21:49)
[2020-07-19] MEDS: ACETAMINOPHEN 500 MG TAB PO SCH ×3 (09:19→21:54)
[2020-07-19] MEDS: FLUTICASONE FUROATE 100MCG 14 PUFFS/INHALER INH SCH (09:19)
[2020-07-19] MEDS: MONTELUKAST SODIUM 10 MG TABLET PO SCH (09:19)
[2020-07-19] MEDS: FERROUS SULFATE 325 MG TAB PO SCH (09:20)
[2020-07-19] MEDS: guaiFENesin 600 MG TABCR PO SCH ×2 (09:20→21:49)
[2020-07-19] MEDS: DOCUSATE SODIUM/SENNA 50/8.6MG TAB PO SCH (09:20)
[2020-07-19] MEDS: BENZTROPINE MESYLATE 1 MG TAB PO SCH (09:20)
[2020-07-19] MEDS: predniSONE 10 MG TABLET PO SCH (09:20)
[2020-07-19] MEDS: haloperidoL 1 MG TAB PO SCH ×2 (09:20→21:51)
[2020-07-19] MEDS: PROPRANOLOL HCL 20 MG TAB PO SCH ×2 (09:20→21:49)
[2020-07-19] MEDS: FILGRASTIM 480 MCG/1.6 ML VIAL SC SCH (10:22)
[2020-07-19] MEDS: UMECLIDINIUM BROMIDE 62.5MCG/BLISTER 7 PUFFS/INHALER INH SCH (10:23)
--- NOTE | 2020-07-19 11:28 | Hospitalist Progress Note ---
Date of Service July 19, 2020 Assessment & Plan (1) Pneumonia: * Post-obstructive consolidation seen on CTA of superior segment RLL this is clouded by the fact that the patient and his concurrent lung cancer with abnormal imaging and a baseline history of COPD * Pulmonary on consult-- appreciate rec. * Continue Incruse, Arnuity daily * Xopenex HFA prn, Atrovent neb Q8H prn * Continue incentive spirometer, mucinex Q12 * Saturating well on 2L * Abx complete today (2) Pancytopenia: Ongoing, ANC today 170. Afebrile. Discussed with patient's oncology PA - this is on track for his anand from chemotherapy on July 10. She recommended 480 mcg of Neupogen daily x 2-3 days depending on response [facility] is unable to accommodate neutropenic precautions so will need to keep patient in the hospital until his wbc count recovers (3) COPD (chronic obstructive pulmonary disease): * Continue Arnuity 1 puff daily, Incruse 1 puff daily, Singulair 10mg daily * Pulmonary consulted -- no signs of radiation pneumonitis on imaging per initial read * Could be worsening of his lung ca -- follows with Dr. Ryan for XRT * No evidence of PE * 97% on 2L * Will taper of steroids - 10 mg starting tomorrow x 3 days and then dc (4) Fall: * s/p fall x 3 with nonoperative left greater trochanteric fracture evidence on imaging * Orthopedics consulted -- felt fracture to be managed non-operatively and pt can be up and weightbearing as tolerated on the LEFT hip * Pain control -- oxycodone, will add scheduled Tylenol Lidoderm patches the patient is too painful to walk on 07/14/2020 - now pain much improved * PT/OT eval and treat ordered (5) DVT (deep venous thrombosis): US of left arm with occlusive thrombus seen within the left subclavian, axillary, and basilic veins. Heparin gtt discontinued as INR is therapeutic Recheck INR am (6) Elevated brain natriuretic peptide (BNP) level: * ECHO without evidence of CHF -- see diagnostic report * CXR without congestive changes * Supplemental O2 as needed to maintain O2 sat >88% -- had been 94% on 2L but patient with significant smoking history and likely baseline closer to 90s -- wean as tolerated * Trop negative (7) Atrial fibrillation: * Rate controlled - continue propranolol 40mg PO BID * Continue warfarin * TSH low normal 0.341 and T4 high normal 1.58 -- T3 low, TSI pending (8) Small cell lung 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: * s/p chemo - neutropenia to be treated as above * XRT eval 07/[address] Ryan * Surveillance Specialist consulted -- poor appetite reported * Patient was to have a port placed this week. This can be rescheduled outpatient. Discussed with oncology and they were ok with that (9) BPH (benign prostatic hyperplasia): * Continue Flomax 0.4mg HS (10) Hyponatremia: Resolved Urine sodium 48, urine osmolality 703, serum osmolality 284 AM cortisol wnl (11) Schizophrenia: * Stable * Continue Haldol 3mg PO BID, Cogentin 1mg daily, Vistaril 25mg BID (12) Elevated bilirubin: Resolved * Tbili 1.7, direct 0.3. Does not have abdominal pain on examination * CTA/P with enlargement of 37mm cystic lesion pancreatic head with ductal dilation ?neoplasm, IPMN?. * GI consulted -- patient without want for eval at this time but if he decides he to change his mind could consider EUS with [facility] (although this could possible be done outpt unless patient to develop symptoms/abd pain). However, when discussed with patient he seemed unsure and might want further workup. Would have him follow with oncology first to see if further workup would be beneficial in the setting of current chemo/radiation therapy * (13) Hyperlipidemia: * Continue atorvastatin 20mg HS (14) DVT prophylaxis: -- Patient on coumadin 3 mg daily - repeat inr am Dispo: PT/OT evals - [facility] cannot take patient while getting radiation therapy Admission and Anticipated Discharge Date Admission Date: July 11, 2020 Supervising Physician Co-Signing Physician Notes I personally examined the patient and verified all ac points of history and exa m, discussed case, and agree with decision making with Rubén Callejas [employer]WORK[employer]EM[employer] epigastric pain. no cp no sob. 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 pneumonia - clinically seems to have been treated adequately. chemotherapy related pancytopenia/neutropenia - ongoing neutropenic precautions precluding safe return to half-way at this time. otherwise as above Subjective Mr. Nichols feels about the same today, moist non productive cough, some epigastric discomfort reproducible by pushing on upper belly. No nausea or vom iting. Review of Systems Constitutional: no fever, no chills and no body aches Respiratory: no cough and no dyspnea Cardiovascular: no chest pain, no palpitations and no lightheadedness Gastrointestinal: as per Subjective / HPI Genitourinary: no dysuria and no urinary hesitancy Musculoskeletal: no back pain and no joint pain Integumentary: no rash Physical Exam Physical Exam: General: no distress Eyes: normal inspection, PERLL Respiratory: chest non tender, clear to auscultation, normal breath sounds, no respiratory distress, no accessory muscle use Cardiac: regular rate and rhythm, no rub or gallop, no murmur, no edema, no jvd GI/: active bowel sounds, no abd pain or tenderness, soft, non distended Extremities: normal range of motion, normal strength, non tender Neuro/Psych: alert and oriented x 3, normal mood and affect Skin: normal color, dry Results & Data Results & Data ([facility]) Vital Signs (Past 12 Hours) Vital Signs Temp Pulse Resp BP Pulse Ox 07/19/20 07:49 36.8 C 87 16 117/71 94 PG Care Time/CCT Total # of Minutes Spent Total Time Spent with Patient: Total time spent is greater than 50% in coordination of care (as documented) at patient's floor/unit and/or counseling patient: Coding Level of Care Code 02234 Subseq Hosp Care Lvl 2 Diagnoses Pneumonia J18.9 Pancytopenia D61.818 COPD (chronic obstructive pulmonary disease) J44.9 Fall W19.XXXA DVT (deep venous thrombosis) I82.409 Elevated brain natriuretic peptide (BNP) level R79.89 Atrial fibrillation I48.11 Atrial fibrillation type: longstanding persistent Small cell lung 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 C34.90 BPH (benign prostatic hyperplasia) N40.0 Hyponatremia E87.1 Schizophrenia F20.9 Elevated bilirubin R17 Hyperlipidemia E78.5 DVT prophylaxis Z29.9 (1) Atrial fibrillation Atrial fibrillation type: longstanding persistent Qualified Code(s): I48.11 - Longstanding persistent atrial fibrillation
[2020-07-19] MEDS: cefTRIAXone SODIUM 2,000 MG in DEXTROSE 5% 50 ML IV SCH (15:24)
[2020-07-19] MEDS: oxyCODONE HCL IR 5 MG TAB (IMMEDIATE RELEASE) PO PRN (15:24)
[2020-07-19] MEDS: WARFARIN SOD 3 MG TAB PO SCH (17:22)
[2020-07-19] MEDS: ATORVASTATIN 20 MG TAB PO SCH (21:50)
[2020-07-19] MEDS: TAMSULOSIN HCL 0.4 MG CAP PO SCH (21:51)
[2020-07-19] MEDS ORDERED: ALUMINUM/MAGNESIUM SUSP 30 ML UDC PO PRN (22:16)
[2020-07-20] MEDS ORDERED: CALCIUM CARBONATE 500 MG CHEWABLE TAB PO ONE (00:36)
[2020-07-20 09:07] LABS: INR 3.2 (0.9-1.1); Prothrombin Time 31.9 Seconds (9.0-12.0)
[2020-07-20 09:17] LABS: Hemoglobin 10.2 g/dL (14.0-18.0); Mean Corpuscular Hemoglobin 30.7 pg (25-34); Mean Corpuscular Hgb Conc 35.2 g/dL (32-36); Mean Corpuscular Volume 87.3 fL (80-100); Mean Platelet Volume 9.3 fL (7.4-10.4); Platelet Count 81 K/uL (130-400); RDW Coefficient of Variation 12.9 % (11.5-14.5); RDW Standard Deviation 41.6 fL (36.4-46.3); Red Blood Count 3.32 M/uL (4.7-6.1); White Blood Count 0.93 K/uL (4.8-10.8)
[2020-07-20 09:25] LABS: Basophils # (auto) 0.01 K/uL (0-0.2); Basophils % (auto) 1.1 %; Eosinophils % (auto) 10.8 %; Lymphocytes # (auto) 0.54 K/uL (1.2-3.4); Lymphocytes % (auto) 58.1 %; Monocytes # (auto) 0.22 K/uL (0.11-0.59); Monocytes % (auto) 23.7 %; Neutrophils # (auto) 0.06 K/uL (1.4-6.5); Neutrophils % (auto) 6.3 %
[2020-07-20] MEDS: PROPRANOLOL HCL 20 MG TAB PO SCH ×2 (09:26→20:46)
[2020-07-20] MEDS: FLUTICASONE FUROATE 100MCG 14 PUFFS/INHALER INH SCH (09:26)
[2020-07-20] MEDS: UMECLIDINIUM BROMIDE 62.5MCG/BLISTER 7 PUFFS/INHALER INH SCH (09:26)
[2020-07-20] MEDS: haloperidoL 1 MG TAB PO SCH ×2 (09:27→20:46)
[2020-07-20] MEDS: hydrOXYzine HCl 25 MG TAB PO SCH ×2 (09:27→20:46)
[2020-07-20] MEDS: guaiFENesin 600 MG TABCR PO SCH ×2 (09:27→20:46)
[2020-07-20] MEDS: POLYETHYLENE (MIRALAX) 17 GM PACK PO SCH (09:27)
[2020-07-20] MEDS: BENZTROPINE MESYLATE 1 MG TAB PO SCH (09:41)
[2020-07-20] MEDS: MONTELUKAST SODIUM 10 MG TABLET PO SCH (09:41)
[2020-07-20] MEDS: FERROUS SULFATE 325 MG TAB PO SCH (09:41)
[2020-07-20] MEDS: ACETAMINOPHEN 500 MG TAB PO SCH ×3 (09:41→20:46)
[2020-07-20] MEDS: DOCUSATE SODIUM/SENNA 50/8.6MG TAB PO SCH (09:41)
[2020-07-20] MEDS: FAMOTIDINE 20 MG TAB PO SCH ×2 (10:41→20:46)
--- NOTE | 2020-07-20 11:59 | Hospitalist Progress Note ---
Date of Service July 20, 2020 Assessment & Plan (1) Pneumonia: * Post-obstructive consolidation seen on CTA of superior segment RLL this is clouded by the fact that the patient and his concurrent lung cancer with abnormal imaging and a baseline history of COPD * Pulmonary on consult-- appreciate rec. * Continue Incruse, Arnuity daily * Xopenex HFA prn, Atrovent neb Q8H prn * Continue incentive spirometer, mucinex Q12 * Saturating well on 2L * Abx completed (2) Pancytopenia: Ongoing, ANC today 60. Afebrile. Discussed with patient's oncology PA - this is on track for his anand from chemotherapy on July 10. She recommended 480 mcg of Neupogen daily x 3 days which he completed yesterday [facility] is unable to accommodate neutropenic precautions so will need to keep patient in the hospital until his wbc count recovers (3) COPD (chronic obstructive pulmonary disease): * Continue Arnuity 1 puff daily, Incruse 1 puff daily, Singulair 10mg daily * Pulmonary consulted -- no signs of radiation pneumonitis on imaging per initial read * Could be worsening of his lung ca -- follows with Dr. Ryan for XRT * No evidence of PE * 97% on 2L * Tapered off steroids (4) Fall: * s/p fall x 3 with nonoperative left greater trochanteric fracture evidence on imaging * Orthopedics consulted -- felt fracture to be managed non-operatively and pt can be up and weightbearing as tolerated on the LEFT hip * Pain control -- oxycodone, will add scheduled Tylenol Lidoderm patches the patient is too painful to walk on 07/14/2020 - now pain much improved * PT/OT eval and treat ordered (5) DVT (deep venous thrombosis): US of left arm with occlusive thrombus seen within the left subclavian, axillary, and basilic veins. Heparin gtt discontinued as INR is therapeutic (6) Elevated brain natriuretic peptide (BNP) level: * ECHO without evidence of CHF -- see diagnostic report * CXR without congestive changes * Supplemental O2 as needed to maintain O2 sat >88% -- had been 94% on 2L but patient with significant smoking history and likely baseline closer to 90s -- wean as tolerated * Trop negative (7) Atrial fibrillation: * Rate controlled - continue propranolol 40mg PO BID * Continue warfarin * TSH low normal 0.341 and T4 high normal 1.58 -- T3 low, TSI was normal at 80 (8) Small cell lung 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: * s/p chemo - neutropenia to be treated as above * XRT eval 07/[address] Ryan * Communications Writer consulted -- poor appetite reported * Patient was to have a port placed this week. This can be rescheduled outpatient. Discussed with oncology and they were ok with that (9) BPH (benign prostatic hyperplasia): * Continue Flomax 0.4mg HS (10) Hyponatremia: Resolved Urine sodium 48, urine osmolality 703, serum osmolality 284 AM cortisol wnl (11) Schizophrenia: * Stable * Continue Haldol 3mg PO BID, Cogentin 1mg daily, Vistaril 25mg BID (12) Elevated bilirubin: Resolved * Tbili 1.7, direct 0.3. Does not have abdominal pain on examination * CTA/P with enlargement of 37mm cystic lesion pancreatic head with ductal dilation ?neoplasm, IPMN?. * GI consulted -- patient without want for eval at this time but if he decides he to change his mind could consider EUS with [facility] (although this could possible be done outpt unless patient to develop symptoms/abd pain). However, when discussed with patient he seemed unsure and might want further workup. Would have him follow with oncology first to see if further workup would be beneficial in the setting of current chemo/radiation therapy * (13) Hyperlipidemia: * Continue atorvastatin 20mg HS (14) DVT prophylaxis: -- Patient on coumadin 3 mg daily - INR 3.2 today - repeat am Dispo: PT/OT evals - [facility] cannot take patient while getting radiation therapy Admission and Anticipated Discharge Date Admission Date: July 11, 2020 Supervising Physician Co-Signing Physician Notes chart reviewed and case d/w S Júnior LAU. agree w above. Subjective Mr. Nichols has no complaints today. Feels his respiratory status is about the same Review of Systems Constitutional: no fever, no chills and no body aches Respiratory: no cough and no dyspnea Cardiovascular: no chest pain and no palpitations Gastrointestinal: no abdominal pain, no nausea and no vomiting Genitourinary: no dysuria and no urinary hesitancy Musculoskeletal: no back pain and no joint pain Integumentary: no rash Physical Exam Physical Exam: General: no distress Eyes: normal inspection, PERLL Respiratory: chest non tender, clear to auscultation, normal breath sounds, no respiratory distress, no accessory muscle use Cardiac: regular rate and rhythm, no rub or gallop, no murmur, no edema, no jvd GI/: active bowel sounds, no abd pain or tenderness, soft, non distended Extremities: normal range of motion, normal strength, non tender Neuro/Psych: alert and oriented x 3, normal mood and affect Skin: normal color, dry Results & Data Results & Data ([facility]) Vital Signs (Past 12 Hours) Vital Signs Temp Pulse Resp BP Pulse Ox 07/20/20 07:26 37.0 C 69 16 124/79 97 PG Care Time/CCT Total # of Minutes Spent Total Time Spent with Patient: Total time spent is greater than 50% in coordination of care (as documented) at patient's floor/unit and/or counseling patient: Coding Level of Care Code 54309 Subseq Hosp Care Lvl 2 Diagnoses Pneumonia J18.9 Pancytopenia D61.818 COPD (chronic obstructive pulmonary disease) J44.9 Fall W19.XXXA DVT (deep venous thrombosis) I82.409 Elevated brain natriuretic peptide (BNP) level R79.89 Atrial fibrillation I48.11 Atrial fibrillation type: longstanding persistent Small cell lung 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 C34.90 BPH (benign prostatic hyperplasia) N40.0 Hyponatremia E87.1 Schizophrenia F20.9 Elevated bilirubin R17 Hyperlipidemia E78.5 DVT prophylaxis Z29.9 (1) Atrial fibrillation Atrial fibrillation type: longstanding persistent Qualified Code(s): I48.11 - Longstanding persistent atrial fibrillation
[2020-07-20] MEDS: oxyCODONE HCL IR 5 MG TAB (IMMEDIATE RELEASE) PO PRN (15:58)
[2020-07-20] MEDS: TAMSULOSIN HCL 0.4 MG CAP PO SCH (20:46)
[2020-07-20] MEDS: ATORVASTATIN 20 MG TAB PO SCH (20:47)
[2020-07-21 07:11] LABS: Hematocrit (blood only) 31.9 % (42-52); Mean Corpuscular Hemoglobin 30.1 pg (25-34); Mean Corpuscular Hgb Conc 34.5 g/dL (32-36); Mean Corpuscular Volume 87.2 fL (80-100); RDW Standard Deviation 40.7 fL (36.4-46.3); Red Blood Count 3.66 M/uL (4.7-6.1); White Blood Count 2.31 K/uL (4.8-10.8)
[2020-07-21 07:22] LABS: Mean Platelet Volume 9.3 fL (7.4-10.4); Platelet Count 95 K/uL (130-400)
[2020-07-21 07:24] LABS: INR 2.3 (0.9-1.1)
[2020-07-21 07:30] LABS: Dohle Bodies 1+; Toxic Granulation 1+
[2020-07-21 07:32] LABS: ALC (manual) 1.13 K/uL (1.2-3.4); ANC (manual) 0.61 K/uL (1.4-6.5); Basophils # (manual) 0.02 K/uL (0-0.2); Basophils % (manual) 0.9 %; Eosinophils % (manual) 8.8 %; Lymphocytes # (manual) 1.13 K/uL (1.2-3.4); Lymphocytes % (manual) 49.1 %; Monocytes # (manual) 0.32 K/uL (0.11-0.59); Myelocytes # (manual) 0.02 K/uL (0-0); Myelocytes % (manual) 0.9 %; Neutrophils # (manual) 0.61 K/uL (1.4-6.5); Neutrophils % (manual) 26.3 %
[2020-07-21] MEDS: oxyCODONE HCL IR 5 MG TAB (IMMEDIATE RELEASE) PO PRN ×2 (08:22→14:20)
[2020-07-21] MEDS: guaiFENesin 600 MG TABCR PO SCH ×2 (09:37→19:56)
[2020-07-21] MEDS: FERROUS SULFATE 325 MG TAB PO SCH (09:37)
[2020-07-21] MEDS: FAMOTIDINE 20 MG TAB PO SCH ×2 (09:37→19:55)
[2020-07-21] MEDS: BENZTROPINE MESYLATE 1 MG TAB PO SCH (09:38)
[2020-07-21] MEDS: MONTELUKAST SODIUM 10 MG TABLET PO SCH (09:38)
[2020-07-21] MEDS: PROPRANOLOL HCL 20 MG TAB PO SCH ×2 (09:38→19:57)
[2020-07-21] MEDS: hydrOXYzine HCl 25 MG TAB PO SCH ×2 (09:38→19:55)
[2020-07-21] MEDS: haloperidoL 1 MG TAB PO SCH ×2 (09:38→19:56)
[2020-07-21] MEDS: FLUTICASONE FUROATE 100MCG 14 PUFFS/INHALER INH SCH (09:39)
[2020-07-21] MEDS: UMECLIDINIUM BROMIDE 62.5MCG/BLISTER 7 PUFFS/INHALER INH SCH (09:39)
[2020-07-21] MEDS: POLYETHYLENE (MIRALAX) 17 GM PACK PO SCH (09:40)
[2020-07-21] MEDS: DOCUSATE SODIUM/SENNA 50/8.6MG TAB PO SCH (09:40)
[2020-07-21] MEDS: ACETAMINOPHEN 500 MG TAB PO SCH ×3 (09:42→19:55)
--- NOTE | 2020-07-21 12:40 | Hospitalist Progress Note ---
Date of Service July 21, 2020 Assessment & Plan (1) Pneumonia: * Post-obstructive consolidation seen on CTA of superior segment RLL this is clouded by the fact that the patient and his concurrent lung cancer with abnormal imaging and a baseline history of COPD * Pulmonary on consult-- appreciate rec. * Continue Incruse, Arnuity daily * Xopenex HFA prn, Atrovent neb Q8H prn * Continue incentive spirometer, mucinex Q12 * Saturating well on 2L * Abx completed (2) Pancytopenia: Ongoing, ANC today 610. Afebrile. Discussed with patient's oncology PA - this is on track for his anand from chemotherapy on July 10. She recommended 480 mcg of Neupogen daily x 3 days which he completed 07/19 [facility] is unable to accommodate neutropenic precautions so will need to keep patient in the hospital until his wbc count recovers (3) COPD (chronic obstructive pulmonary disease): * Continue Arnuity 1 puff daily, Incruse 1 puff daily, Singulair 10mg daily * Pulmonary consulted -- no signs of radiation pneumonitis on imaging per initial read * Could be worsening of his lung ca -- follows with Dr. Ryan for XRT * No evidence of PE * 97% on 2L * Tapered off steroids (4) Fall: * s/p fall x 3 with nonoperative left greater trochanteric fracture evidence on imaging * Orthopedics consulted -- felt fracture to be managed non-operatively and pt can be up and weightbearing as tolerated on the LEFT hip * Pain control -- oxycodone, scheduled Tylenol, Lidoderm patches * PT/OT eval and treat (5) DVT (deep venous thrombosis): US of left arm with occlusive thrombus seen within the left subclavian, axillary, and basilic veins. Heparin gtt discontinued as INR is therapeutic (6) Elevated brain natriuretic peptide (BNP) level: * ECHO without evidence of CHF -- see diagnostic report * CXR without congestive changes * Supplemental O2 as needed to maintain O2 sat >88% -- had been 94% on 2L but patient with significant smoking history and likely baseline closer to 90s -- wean as tolerated * Trop negative (7) Atrial fibrillation: * Rate controlled - continue propranolol 40mg PO BID * Continue warfarin * TSH low normal 0.341 and T4 high normal 1.58 -- T3 low, TSI was normal at 80 (8) Small cell lung 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: * s/p chemo - neutropenia to be treated as above * XRT eval 07/[address] Ryan * Gasoline Truck Crane Operator consulted -- poor appetite reported * Patient was to have a port placed this week. This can be rescheduled outpatient. Discussed with oncology and they were ok with that (9) BPH (benign prostatic hyperplasia): * Continue Flomax 0.4mg HS (10) Hyponatremia: Resolved Urine sodium 48, urine osmolality 703, serum osmolality 284 AM cortisol wnl (11) Schizophrenia: * Stable * Continue Haldol 3mg PO BID, Cogentin 1mg daily, Vistaril 25mg BID (12) Elevated bilirubin: Resolved * Tbili 1.7, direct 0.3. Does not have abdominal pain on examination * CTA/P with enlargement of 37mm cystic lesion pancreatic head with ductal dilation ?neoplasm, IPMN?. * GI consulted -- patient without want for eval initially, however when discussed with patient subsequently he seemed unsure and might want further workup. Would have him follow with oncology first to see if further workup would be beneficial in the setting of current chemo/radiation therapy. - could consider EUS with [facility] (although this could possible be done outpt unless patient to develop symptoms/abd pain). (13) Hyperlipidemia: * Continue atorvastatin 20mg HS (14) DVT prophylaxis: -- Patient coumadin increased to 3 mg daily Dispo: PT/OT evals - [facility] cannot take patient while getting radiation therapy Admission and Anticipated Discharge Date Admission Date: July 11, 2020 Supervising Physician Co-Signing Physician Notes chart reviewed and case d/w S Júnior LAU. agree w above. Subjective Mr. Nichols reports persistent pain in his broken hip though he doesn't feel it's worsening just nagging. He does get relief from pain medicine but forgets to ask for it before the pain is really intense. We discussed a bit that he could ask for pain medication when pain is starting to increase at around 5/10 instead of waiting for it to be a 7/10 for better control. Respiratory symptoms are stable - non productive cough, no dyspnea. Review of Systems Constitutional: no fever, no chills and no body aches Respiratory: as per Subjective / HPI Cardiovascular: no chest pain and no dyspnea on exertion Gastrointestinal: no abdominal pain, no nausea and no vomiting Genitourinary: no dysuria and no urinary hesitancy Musculoskeletal: no back pain and no loss of height Integumentary: no rash Physical Exam Physical Exam: General: no distress Eyes: normal inspection, PERLL Respiratory: chest non tender, clear to auscultation, normal breath sounds, no respiratory distress, no accessory muscle use Cardiac: regular rate and rhythm, no rub or gallop, no murmur, left arm edema GI/: active bowel sounds, no abd pain or tenderness, soft, non distended Extremities: normal range of motion, normal strength, non tender Neuro/Psych: alert and oriented x 3, normal mood and affect Skin: normal color, dry Results & Data Results & Data ([facility]) Vital Signs (Past 12 Hours) Vital Signs Temp Pulse Resp BP Pulse Ox 07/21/20 07:38 37.1 C 87 16 104/71 99 PG Care Time/CCT Total # of Minutes Spent Total Time Spent with Patient: Total time spent is greater than 50% in coordination of care (as documented) at patient's floor/unit and/or counseling patient: Coding Level of Care Code 45117 Subseq Hosp Care Lvl 2 Diagnoses Pneumonia J18.9 Pancytopenia D61.818 COPD (chronic obstructive pulmonary disease) J44.9 Fall W19.XXXA DVT (deep venous thrombosis) I82.409 Elevated brain natriuretic peptide (BNP) level R79.89 Atrial fibrillation I48.11 Atrial fibrillation type: longstanding persistent Small cell lung 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 C34.90 BPH (benign prostatic hyperplasia) N40.0 Hyponatremia E87.1 Schizophrenia F20.9 Elevated bilirubin R17 Hyperlipidemia E78.5 DVT prophylaxis Z29.9 (1) Atrial fibrillation Atrial fibrillation type: longstanding persistent Qualified Code(s): I48.11 - Longstanding persistent atrial fibrillation
[2020-07-21] MEDS: WARFARIN SOD 3 MG TAB PO SCH (14:19)
[2020-07-21] MEDS: ATORVASTATIN 20 MG TAB PO SCH (19:56)
[2020-07-21] MEDS: TAMSULOSIN HCL 0.4 MG CAP PO SCH (19:57)
[2020-07-22 06:23] LABS: Hemoglobin 11.8 g/dL (14.0-18.0); Mean Corpuscular Hemoglobin 29.8 pg (25-34); Mean Corpuscular Hgb Conc 33.7 g/dL (32-36); Mean Corpuscular Volume 88.4 fL (80-100); Mean Platelet Volume 8.9 fL (7.4-10.4); Platelet Count 126 K/uL (130-400); RDW Coefficient of Variation 13.7 % (11.5-14.5); RDW Standard Deviation 41.8 fL (36.4-46.3); Red Blood Count 3.96 M/uL (4.7-6.1); White Blood Count 4.62 K/uL (4.8-10.8)
[2020-07-22 06:38] LABS: Prothrombin Time 20.4 Seconds (9.0-12.0)
[2020-07-22 06:56] LABS: ALC (manual) 1.19 K/uL (1.2-3.4); ANC (manual) 2.65 K/uL (1.4-6.5); Basophils # (manual) 0.04 K/uL (0-0.2); Basophils % (manual) 0.9 %; Dohle Bodies 1+; Eosinophils # (manual) 0.04 K/uL (0-0.5); Eosinophils % (manual) 0.9 %; Lymphocytes # (manual) 1.19 K/uL (1.2-3.4); Lymphocytes % (manual) 25.7 %; Metamyelocytes # (manual) 0.04 K/uL (0-0); Metamyelocytes % (manual) 0.9 %; Monocytes # (manual) 0.61 K/uL (0.11-0.59); Monocytes % (manual) 13.3 %; Myelocytes # (manual) 0.04 K/uL (0-0); Myelocytes % (manual) 0.9 %; Neutrophils # (manual) 2.65 K/uL (1.4-6.5); Neutrophils % (manual) 57.4 %; Toxic Granulation 1+
[2020-07-22 07:06] LABS: BUN Creatinine Ratio 20.8 (10-20); Calcium 8.3 mg/dl (8.5-10.1); Creatinine Clr Calc Pharmacy 77.4 ml/min; Est GFR (African American) 95.3; Est GFR (Non-African American) 82.2; Potassium 4.3 mmol/L (3.5-5.1)
[2020-07-22] MEDS: FLUTICASONE FUROATE 100MCG 14 PUFFS/INHALER INH SCH (08:03)
[2020-07-22] MEDS: oxyCODONE HCL IR 5 MG TAB (IMMEDIATE RELEASE) PO PRN ×2 (08:04→12:18)
[2020-07-22] MEDS: UMECLIDINIUM BROMIDE 62.5MCG/BLISTER 7 PUFFS/INHALER INH SCH (08:04)
[2020-07-22] MEDS: PROPRANOLOL HCL 20 MG TAB PO SCH (08:05)
[2020-07-22] MEDS: BENZTROPINE MESYLATE 1 MG TAB PO SCH (08:05)
[2020-07-22] MEDS: haloperidoL 1 MG TAB PO SCH (08:06)
[2020-07-22] MEDS: MONTELUKAST SODIUM 10 MG TABLET PO SCH (08:06)
[2020-07-22] MEDS: FERROUS SULFATE 325 MG TAB PO SCH (08:06)
[2020-07-22] MEDS: guaiFENesin 600 MG TABCR PO SCH (08:55)
[2020-07-22] MEDS: FAMOTIDINE 20 MG TAB PO SCH (08:55)
[2020-07-22] MEDS: POLYETHYLENE (MIRALAX) 17 GM PACK PO SCH (08:55)
[2020-07-22] MEDS: hydrOXYzine HCl 25 MG TAB PO SCH (08:56)
[2020-07-22] MEDS: ACETAMINOPHEN 500 MG TAB PO SCH ×2 (08:56→12:18)
[2020-07-22] MEDS: DOCUSATE SODIUM/SENNA 50/8.6MG TAB PO SCH (08:56)
--- NOTE | 2020-07-22 10:52 | Hospitalist Progress Note ---
Date of Service July 22, 2020 Assessment & Plan Admission and Anticipated Discharge Date Admission Date: July 11, 2020 Results & Data Results & Data ([facility]) Vital Signs (Past 12 Hours) Vital Signs Temp Pulse Resp BP Pulse Ox 07/22/20 07:06 36.7 C 81 19 112/68 98 07/21/20 23:46 36.8 C 81 20 107/69 98 Laboratory Results 07/22/20 07/22/20 07/22/20 Range/Units 06:05 06:05 06:05 WBC 4.62 L (4.8-10.8) K/uL RBC 3.96 L (4.7-6.1) M/uL Hgb 11.8 L (14.0-18.0) g/dL Hct 35.0 L (42-52) % MCV 88.4 (80-100) fL MCH 29.8 (25-34) pg MCHC 33.7 (32-36) g/dL RDW Std Deviation 41.8 (36.4-46.3) fL RDW Coeff of Ivis 13.7 (11.5-14.5) % Plt Count 126 L (130-400) K/uL MPV 8.9 (7.4-10.4) fL Neutrophils % (Manual) 57.4 % Lymphocytes % (Manual) 25.7 % Monocytes % (Manual) 13.3 % Eosinophils % (Manual) 0.9 % Basophils % (Manual) 0.9 % Metamyelocytes % (Man) 0.9 % Myelocytes % (Man) 0.9 % Neutrophils # (Manual) 2.65 (1.4-6.5) K/uL Total Absolute Neuts 2.65 (1.4-6.5) K/uL Lymphocytes # (Manual) 1.19 L (1.2-3.4) K/uL Total Abs Lymphocytes 1.19 L (1.2-3.4) K/uL Monocytes # (Manual) 0.61 H (0.11-0.59) K/uL Eosinophils # (Manual) 0.04 (0-0.5) K/uL Basophils # (Manual) 0.04 (0-0.2) K/uL Metamyelocytes # (Man) 0.04 H (0-0) K/uL Myelocytes # (Manual) 0.04 H (0-0) K/uL Toxic Granulation 1+ Dohle Bodies 1+ PT 20.4 H (9.0-12.0) Seconds INR 2.0 H (0.9-1.1) Sodium 137 (136-145) mmol/L Potassium 4.3 (3.5-5.1) mmol/L Chloride 103 (98-107) mmol/L Carbon Dioxide 31 (21-32) mmol/L Anion Gap 3.0 (3-11) BUN 19 H (7-18) mg/dl Creatinine 0.92 (0.6-1.4) mg/dl Est Cr Clr Drug Dosing 77.4 ml/min Est GFR ( Amer) 95.3 Est GFR (Non-Af Amer) 82.2 BUN/Creatinine Ratio 20.8 H (10-20) Glucose 106 H (70-99) mg/dl Calcium 8.3 L (8.5-10.1) mg/dl PG Care Time/CCT Total # of Minutes Spent Total Time Spent with Patient: Total time spent is greater than 50% in coordination of care (as documented) at patient's floor/unit and/or counseling patient: Coding
[2020-07-22 15:10] VITALS: PULSE 80; TEMP 97.9; O2SAT 98
--- NOTE | 2020-07-22 15:12 | Discharge Summary ---
Date of Service July 22, 2020 Admission HPI Per Admitting Provider Chief Complaint: Left hip pain Primary Care Provider: SCI Luis Miguel Nichols is a 75yo male presenting from [facility] s/p mechanical fall x 3, left hip pain. Patient with lung cancer currently receiving chemotherapy, last treatment this week. He reports falling x 3 while at [facility]. Denies CP/palpitations/dizziness. He denies LOC or head trauma. Complaining of some mild SOB as well as cough productive for yellow sputum, weakness. Admission Exam Per Admitting Provider General: patient resting comfortably, NAD, non-toxic in appearance, AA&O x 4 Skin: warm, dry, intact, no rashes or lesions HEENT: NC/AT, PERRL, EOMI, anicteric sclera, conjunctiva without injection, external ear normal to inspection and nontender, nares patent, moist mucus membranes, dentition intact, no oropharyngeal lesions, neck supple, trachea midline, no LAD, no thyromegaly, no JVD Heart: +S1/S2, regular, no m/r/g Lungs: coarse breath sounds bilaterally with diffuse end-expiratory wheezing Abd: +BS, soft, NT/ND, no masses/organomegaly/ascites Ext: warm, 2+ pulses in UE/LE bilaterally, no clubbing/cyanosis or edema, tenderness over left hip Neuro: nonfocal, patient AA&O x 4, speech intact, no facial droop, moving all extremities on command with equal strength 5/5 Principal Diagnosis Hip Fracture, Pneumonia Discharge Exam Constitutional well developed, + ill appearing (chronically ill appearing) and comfortable; no acute distress Eyes PERRL, conjunctivae normal, anicteric sclerae Neck trachea midline, no thyromegaly normal visual inspection Respiratory normal respiratory effort and able to speak in complete sentences; no labored breathing Auscultation: + diminished lung sounds and + rhonchi (RUL) not on oxygen -- 94% on RA Cardiovascular Rate/Rhythm: + irregularly irregular Heart Sounds: no murmur Extremities: no edema Gastrointestinal (Abdomen) normal bowel sounds, soft, nontender, no hepatosplenomegaly Inspection/Auscultation: abdomen normal to inspection Musculoskeletal Head/Neck/Chest: normocephalic tender over greater trochanter able to internal/externally rotate with some discomfort NVI pulses palpable bilaterally Skin no jaundice Neurologic PERRL, EOMI, accommodation nl, no face palsy, no dysarthria Psychiatric Orientation: alert and oriented x 3 Lymphatic no cervical or axillary lymphadenopathy Discharge Data Allergies Allergy/AdvReac Type Severity Reaction Status Date / Time No Known Allergies Allergy Verified 07/11/20 18:10 Consultations 07/11/20 17:47 ED Decision to Admit Stat 07/12/20 08:14 Consult Orthopedic Surgery Routine 07/12/20 08:17 Consult Gastroenterology Routine 07/12/20 09:16 Consult Pulmonology Routine Ordered Studies 07/11/20 14:57 CT abd pelvis IV con only Stat CT angio chest PE protocol Stat HIp/Pelvis Xray CXR 07/11/20 17:25 US point of care ultrasound Stat ECHO 07/14 CXR 07/15/20 14:30 US venous doppler UE LT Routine Hospital Course (1) Pneumonia: * Post-obstructive consolidation seen on CTA of superior segment RLL this is clouded by the fact that the patient and his concurrent lung cancer with abnormal imaging and a baseline history of COPD * Pulmonary consulted * Continued Incruse, Arnuity daily * Xopenex HFA prn, Atrovent neb Q8H prn * Continued incentive spirometer, mucinex Q12 (continue at discharge) * Had been saturating 98% on 2L and 95% on RA but did desat to high 80s with ambulation and to utilize 2L via NC with ambulation * Received 8th XRT today and to continue with daily treatments for total of 35. Can re-eval for rehab if needed at the end, however [facility] unable to take patient on active radiation and patient able to ambulate 150' compared to 90' yesterday. * Completed course of abx while inpatient with Ceftriaxone/Axithromycin (2) Pancytopenia: * ANC 610 prior, secondary to anand tx chemo on July 10. * Given 480 mcg of Neupogen daily x 3 days which he completed 07/19 * Neutropenia resolved on repeat labs (3) COPD (chronic obstructive pulmonary disease): * Continued Arnuity 1 puff daily, Incruse 1 puff daily, Singulair 10mg daily * Pulmonary consulted -- no signs of radiation pneumonitis on imaging per initial read but was given several days prednisone 20mg for possible pneumonitis, tapered and completed * Could be worsening of his lung ca -- follows with Dr. Ryan for XRT -- s/p XRT 07/22 and to have daily * No evidence of PE on imaging * O2 sats stable on RA at rest. 2 step with 2L with ambulation (4) Fall: * s/p fall x 3 with nonoperative left greater trochanteric fracture evidence on imaging * Orthopedics consulted -- felt fracture to be managed non-operatively and pt can be up and weightbearing as tolerated on the LEFT hip * Pain control -- oxycodone, scheduled Tylenol, Lidoderm patches * PT/OT eval and treat. Unable to go to rehab with active XRT and can be re-eval once completed, although patient with significant improvement with therapy, 150' feet today (5) DVT (deep venous thrombosis): * US of left arm with occlusive thrombus seen within the left subclavian, axillary, and basilic veins * Patient with active ca and reported fall. No port as was to be scheduled for this week but post-poned * Placed on heparin gtt until INR therapeutic and then placed on 3mg warfarin daily (CUPOLA OPERATOR INSULATION 2mg) and will need serial INRs to ensure therapeutic * Follow up with oncology outpt (6) Elevated brain natriuretic peptide (BNP) level: * ECHO without evidence of CHF -- see diagnostic report * CXR without congestive changes * Supplemental O2 as needed to maintain O2 sat >88% -- had been 94% on 2L but patient with significant smoking history and likely baseline closer to 90s -- wean as tolerated * Trop negative (7) Atrial fibrillation: * Rate controlled - continue propranolol 40mg PO BID * Continue warfarin * TSH low normal 0.341 and T4 high normal 1.58 -- T3 low, TSI was normal at 80 (8) Small cell lung 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: * s/p chemo - neutropenia to be treated as above * XRT eval 07/[address] Ryan * Ear Machine Operator consulted -- poor appetite reported * Patient was to have a port placed this week. This can be rescheduled outpatient. Discussed with oncology and they were ok with that (9) BPH (benign prostatic hyperplasia): * Continued Flomax 0.4mg HS (10) Hyponatremia: Resolved Urine sodium 48, urine osmolality 703, serum osmolality 284 AM cortisol wnl Fluid restriction 1800ml (11) Schizophrenia: * Stable * Continued Haldol 3mg PO BID, Cogentin 1mg daily, Vistaril 25mg BID (12) Elevated bilirubin: Resolved * Tbili 1.7, direct 0.3. Does not have abdominal pain on examination * CTA/P with enlargement of 37mm cystic lesion pancreatic head with ductal dilation ?neoplasm, IPMN?. * GI consulted -- patient without want for eval initially, however when discussed with patient subsequently he seemed unsure and might want further workup. * Would have him follow with oncology first to see if further workup would be beneficial in the setting of current chemo/radiation therapy. - could consider EUS with [facility] (although this could possible be done outpt unless patient to develop symptoms/abd pain). (13) Hyperlipidemia: * Continued atorvastatin 20mg HS (14) DVT prophylaxis: -- Patient coumadin increased to 3 mg daily and to have INRs monitored closely to ensure continues to be therapeutic Discharged back to [facility] this evening. Report called to at [facility] prior to d/c. Total Time Total Time Spent Total Time Spent (In Minutes): 90 Discharge Plan Discharge Items [facility] Reason For Visit: HYPOXIA, LEFT HIP PAIN S/P FALL Discharge Diagnosis: Hip Fracture, Pneumonia, DVT Goals: You have been hospitalized for an acute medical problem. During your stay at [facility], we have made an effort to correct the problem that brought you to the hospital while keeping you as comfortable as possible. Medications were used to bring your condition under control and your discharge instructions will include directions for any medications you should take after leaving the hospital. Please make sure you see your Primary Care Provider as part of your follow up plan. Activity: As commented below Activity Comment: increase activity as tolerated. weight bearing as tolerated Non-emergency contact: Primary Care Provider, Oncologist and Celebrity Chef Entrepreneur Media Personality Call non-emergency contact if: you have any medication questions, your symptoms worsen and your pain is not controlled Follow-up/Referrals: Luis Miguel OLGUIN [Primary Care Provider] - Diet: Heart Healthy Fluids: 1500ml (6 cups) Addtl Attending Provider Instructions: You have been hospitalized for repeated falls and found to have a small fracture of your greater trochanter that was evaluated by orthopedics and felt non- operative and will take several weeks to heal. You have been given pain medications to help control pain during the acute period. You may be weight bearing as tolerated. You may use pain medications as needed for breakthrough pain and utilize tylenol for other non-severe pain. For your shortness of breath, an ECHO (ultrasound of your heart) was completed and you were given diuretics to help bring some fluid off. You have continued radiation for your lung cancer and your neutropenia is now resolved, which was likely from chemotherapy. You completed a course of antibiotics for a post-obstuctive pneumonia, caused by tumor/mass from your lung ca. Your oxygen saturations have improved on room air at rest, but you do have some periods with ambulation where this drops and you are to utilize 2L via NC with ambulation. You should have follow up with radiation tomorrow at 1:30pm for daily treatments. You have received total treatments and can be evaluated if continued therapy neccessary for your hip once these are completed. You should continue your daily inhalers and are being sent to continue mucinex twice daily to help keep secretions thinned/improve breathing. You should follow up with Dr. Branham in the next week to further discuss chemo. You should continue coumadin 3mg daily by mouth and continue with daily INR checks given your upper extremity blood clot that developed when this level dropped below therapeutic range. Your INR should be 2.0-3.0 for DVT. Please return to the emergency department with any worsening pain, shortness of breath, bleeding, or for any other symptoms that are concerning for you. It has been a pleasure being a part of the medical team providing for you while you have been in the hospital. Take care! Pending Studies at Discharge: No Stand-Alone Forms: My [facility] Skilled Items Patient informed of condition?: Yes Discharge Level of Care: Other Communicable Disease: No Discharge Prognosis: Stable Lines: None Urinary Catheter: No Medications and DC Order Prescriptions: New acetaminophen 500 mg Tablet 1,000 mg PO TID PRN (Reason: pain) Qty: 30 RF: 0 warfarin 3 mg Tablet 3 mg PO DAILY@1600 30 Days Qty: 30 RF: 0 guaifenesin [Mucinex] 600 mg Tablet Extended Release 12hr 600 mg PO Q12 Qty: 30 RF: 0 oxycodone 5 mg tablet 5 mg PO Q6H PRN (Reason: pain) Qty: 10 RF: 0 Continued atorvastatin 20 mg Tablet 20 mg PO HS RF: 0 haloperidol 1 mg Tablet 1 mg PO BID RF: 0 propranolol 40 mg Tablet 40 mg PO BID RF: 0 tamsulosin 0.4 mg Capsule 0.4 mg PO HS RF: 0 benztropine 1 mg Tablet 1 mg PO DAILY RF: 0 montelukast 10 mg Tablet 10 mg PO DAILY RF: 0 hydroxyzine HCl 25 mg Tablet 25 mg PO BID RF: 0 haloperidol 2 mg Tablet 2 mg PO BID RF: 0 Spiriva with HandiHaler 18 mcg Capsule, W/Inhalation Device 1 cap INHALATION DAILY RF: 0 levalbuterol tartrate [Xopenex HFA] 45 mcg/actuation Hfa Aerosol Inhaler 2 inh INHALATION QID PRN (Reason: Shortness Of Breath) RF: 0 Alvesco 80 mcg/actuation Hfa Aerosol Inhaler 2 puff INHALATION BID RF: 0 Senna Plus 8.6-50 mg Capsule 2 tab-cap PO DAILY RF: 0 Discontinued warfarin 2 mg tablet 2 mg PO DAILY RF: 0 Discharge Orders: Discharge Order (Routine); Ordered 07/22/20 Ordered By: Sonia Kilgore/Other Patient Handouts: Exercises to Prevent Falls Admission Data Admit Date/Time: 07/11/20 21:00 Attending Provider: Tennille Clark Admit Provider: Simran Gardiner Primary Care Provider: Luis Miguel OLGUIN Other Providers: Simran Gardiner ; Tello Manjarrez ; Dustin Maria ; Abdiaziz Paredes ; [facility] ; Henok Hernandez Other Interventions: Discharge Summary Assessment (RN) Last Done: 07/22/20 17:37 Supervising Physician Co-Signing Physician Notes PA Supervision Note: I personally saw and examined the patient. I verified all ac points and agree with JUAN PABLO Garcia with the following exceptions and/or additions: Patient improved, no shortness of breath or chest pain. He is eating and drinking well. Completed a round of radiation therapy on the day of discharge. He is stable for discharge back to the [facility] Vitals reviewed Gen: Appears disheveled, pleasant, good eye contact, NAD HEENT: Anicteric sclerae, EOMI CV: Irregularly irregular, normal rate, no mgr nl S1S2 Pulm: Diminished breath sounds in the left no wcr Abd: +BS soft NT ND no masses or hernias Ext: No edema, no calf tenderness Skin: No rashes, warm/dry Neuro: Full strength throughout This patient is a 75-year-old male with history of lung cancer currently undergoing radiation therapy, admitted for postobstructive pneumonia, fall resulting in greater trochanter fracture on the left for pain control, as well as some mild hyponatremia, and had a left upper extremity DVT. Plan outlined as above Stable for discharge to [facility] Coding Level of Care Code D/C Day Management >30 mins Diagnoses Pneumonia J18.9 Pancytopenia D61.818 COPD (chronic obstructive pulmonary disease) J44.9 Fall W19.XXXA DVT (deep venous thrombosis) I82.409 Elevated brain natriuretic peptide (BNP) level R79.89 Atrial fibrillation I48.11 Atrial fibrillation type: longstanding persistent Small cell lung 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 C34.90 BPH (benign prostatic hyperplasia) N40.0 Hyponatremia E87.1 Schizophrenia F20.9 Elevated bilirubin R17 Hyperlipidemia E78.5 DVT prophylaxis Z29.9
[2020-07-22] MEDS: WARFARIN SOD 3 MG TAB PO SCH (16:16)
[2020-07-22 17:40] VITALS: BP 104/71
--- NOTE | 2020-07-25 09:49 | Coding Query ---
CODING QUERY To promote full compliance with coding requirements relating to patient care, provider participation is requested in all cases of outpatient coder uncertainty. Please assist us with the question(s) below: Coding Question(s): Per documentation, patient has Atrial Fibrillation. Longstanding Persistent Atrial Fibrillation is documented at the bottom but not in the body of the progress notes. Please clarify below: (x ) Patient has Longstanding Persistent Atrial Fibrillation ( ) Patient has Unspecified Atrial Fibrillation ( ) Other Please Explain: Thank you David Schulz Principal Diagnosis: "that condition established after study, to be chiefly responsible for occasioning the admission of the patient to the hospital for care." Co-Existing Principal Diagnosis: "when two or more diagnoses equally meet the criteria for principal diagnosis as determined by the circumstances of admission, diagnostic work up, and/or therapy provided, and the Alphabetic Index, Tabular List, or another coding guideline does not provide sequencing direction, any one of the diagnoses may be sequenced first." "When the physician has documented what appears to be a current diagnosis in the body of the record, but has not included the diagnosis in the final diagnostic statement, the physician should be asked whether the diagnosis should be added." (Source Coding Clinic 2 QTR90. p3-4) JANICE
== END 2020-07-22 19:22 | DRG 193 ==
LOC: ED 14:01 → SUATTDRO 21:00 → 3W 21:00

== ENCOUNTER 2020-09-19 10:03 | Inpatient (IN) ==
--- NOTE | 2020-09-19 10:18 | Emergency Department Note ---
History of Present Illness General Chief complaint: Cardiac Assessment Time Seen by Provider: 09/19/20 10:04 Source: patient, EMS and old records reviewed Mode of arrival: EMS Limitations: no limitations History of Present Illness Provider complaint: Abnormal EKG at [facility] Onset (ago): unknown This is a 75-year-old male was brought in by EMS from a local [facility] facility. Prisoner states he feels he has been in his usual state of health, denies any other new concerns. States he was at the [facility] for evaluation for a possible exposure to coronavirus. EMS states they were told by [facility] staff that he had an abnormal EKG. They state he does have a history of atrial fibrillation and does have a pacemaker. Initial EKG performed by the physical chemistry professor on scene showed atrial fibrillation. Book Repairer then sent the patient in by BLS as the patient had no complaints. EMS did report that staff told them they had been decreasing the patient's beta-dilip recently due to a lower heart rate, and that during transportation patient's heart rate was in the 130s. Patient denies any fevers or chills, cough or cold. Patient denies any sense of heart racing or palpitations. Patient states he has had an irregular heart rate for many years and that is why they have a pacemaker in him. Patient states it is not a defibrillator. Patient denies any lower extremity edema or calf tenderne ss. Patient denies any nausea, vomiting, abdominal pain, or change in bowel movements. Patient states he is occasionally short of breath, mostly with exertion. He states he does have a history of lung cancer and is a former smoker. Pt seen during a time of high acuity and national emergency pandemic while wearing PPE. Home Medications Medication Instructions Recorded Confirmed Type Alvesco 2 puff INHALATION BID 05/09/20 09/19/20 History Senna Plus 2 tab-cap PO QAM 05/09/20 09/19/20 History Spiriva with HandiHaler 1 cap INHALATION QAM 05/09/20 09/19/20 History atorvastatin 20 mg PO HS 05/09/20 09/19/20 History benztropine 1 mg PO QAM 05/09/20 09/19/20 History haloperidol 1 mg PO BID 05/09/20 09/19/20 History haloperidol 2 mg PO BID 05/09/20 09/19/20 History hydroxyzine HCl 25 mg PO BID 05/09/20 09/19/20 History levalbuterol tartrate [Xopenex HFA] 2 inh INHALATION QID PRN 05/09/20 09/19/20 History montelukast 10 mg PO QAM 05/09/20 09/19/20 History tamsulosin 0.4 mg PO HS 05/09/20 09/19/20 History Magic Swizzle 1 dose PO ACHS 09/19/20 09/19/20 History doxycycline hyclate 100 mg PO BID 09/19/20 09/19/20 History omeprazole 40 mg PO QAM 09/19/20 09/19/20 History warfarin 2 mg PO QAM 09/19/20 09/19/20 History Allergies Allergy/AdvReac Type Severity Reaction Status Date / Time No Known Allergies Allergy Verified 09/19/20 10:13 Past Med/Surg History Medical History Anxiety Atrial fibrillation ANTICOAGULATED WITH COUMADIN Chronic obstructive pulmonary disease Hyperlipidemia Hypertension Inmate in correctional facility Nocturia Phlebitis DEEP LOWER EXTREMITY. Pulmonary mass Shortness of breath Sick sinus syndrome s/p insertion of PPM 06/02/16 Syncope Implantation of dual-chamber Medtronic pacemaker 06/02/2016 Surgical History History of appendectomy History of tonsillectomy Status post biventricular cardiac pacemaker insertion 2015. Has followed with Dr. Calle. Social History Smoking Status: Former smoker Age Started Using Tobacco: 11; Age Quit Using Tobacco: 55; packs per day: 1; Years Smoked: 44; Cigarettes Per Day: 20; Number of Years Since Quit: 20; Second Hand Exposure: No; Do You Dip or Chew Tobacco: No; Hx Alcohol Use: No Hx Substance Use: No Preferred Language: [place]guill[place] Communication Ability: Effective Visual Impairment: No Limitations Hearing Ability: Normal Mobile Service Rv Technician Required: No Beliefs That Will Affect Care: None marital status: Single Current Living Situation: Other Current Living Situation Comment: [facility] current occupational status: unemployed Other Information That Helps Us Care for You: No Feels Safe at Home: Yes Safety Concerns: Feels Safe At This Time caffeine: No during the past year weight has: remained stable Dental Care, Regularly: No Seatbelt Use: always Sunscreen Use: No Assistive Devices: None Review of Systems See HPI for pertinent positives & negatives. and A total of 10 systems reviewed and were otherwise negative Physical Exam Vital Signs Vital Signs - 24 hr 09/19/20 10:11 09/19/20 10:17 09/19/20 10:19 Temperature 36.9 C Temperature Source Oral Pulse Rate 129 H 130 H 129 H Pulse Rate [Left] Pulse Rate from SpO2 Sensor Respiratory Rate 19 18 15 Respiratory Effort / Characteristics Blood Pressure 118/87 118/68 Blood Pressure Mean 97 84 Pulse Oximetry 93 Oxygen Delivery Method Sepsis Recent Fever Within 48 Hours No Sepsis New/Unexplained Change in Mental Status No Sepsis Action Taken by Nursing No Action Required 09/19/20 10:30 09/19/20 11:00 09/19/20 11:30 Temperature Temperature Source Pulse Rate 115 H 118 H 135 H Pulse Rate [Left] Pulse Rate from SpO2 Sensor 137 H 138 H Respiratory Rate 17 14 18 Respiratory Effort / Characteristics Blood Pressure 119/86 122/93 Blood Pressure Mean 97 102 Pulse Oximetry 97 100 100 Oxygen Delivery Method Sepsis Recent Fever Within 48 Hours Sepsis New/Unexplained Change in Mental Status Sepsis Action Taken by Nursing 09/19/20 12:00 09/19/20 12:28 09/19/20 12:30 Temperature Temperature Source Pulse Rate 112 H 115 H 124 H Pulse Rate [Left] Pulse Rate from SpO2 Sensor 121 H Respiratory Rate 16 15 18 Respiratory Effort / Characteristics Blood Pressure 123/82 125/105 H 108/85 Blood Pressure Mean 95 111 92 Pulse Oximetry 100 100 100 Oxygen Delivery Method Sepsis Recent Fever Within 48 Hours Sepsis New/Unexplained Change in Mental Status Sepsis Action Taken by Nursing 09/19/20 13:00 09/19/20 13:34 09/19/20 13:40 Temperature Temperature Source Pulse Rate 124 H 142 H 117 H Pulse Rate [Left] Pulse Rate from SpO2 Sensor 123 H 139 H 116 H Respiratory Rate 15 30 H 20 Respiratory Effort / Characteristics Blood Pressure 124/65 110/82 112/81 Blood Pressure Mean 84 91 91 Pulse Oximetry 100 90 95 Oxygen Delivery Method Room Air Sepsis Recent Fever Within 48 Hours Sepsis New/Unexplained Change in Mental Status Sepsis Action Taken by Nursing 09/19/20 13:45 09/19/20 13:50 09/19/20 13:55 Temperature Temperature Source Pulse Rate 124 H 91 H 104 H Pulse Rate [Left] Pulse Rate from SpO2 Sensor 134 H 132 H 128 H Respiratory Rate 21 12 13 Respiratory Effort / Characteristics Blood Pressure 114/85 108/84 108/76 Blood Pressure Mean 94 92 86 Pulse Oximetry 93 97 99 Oxygen Delivery Method Sepsis Recent Fever Within 48 Hours Sepsis New/Unexplained Change in Mental Status Sepsis Action Taken by Nursing 09/19/20 14:00 09/19/20 14:02 09/19/20 14:05 Temperature Temperature Source Pulse Rate 102 H 104 H 100 H Pulse Rate [Left] Pulse Rate from SpO2 Sensor 110 H Respiratory Rate 20 20 23 Respiratory Effort / Characteristics Blood Pressure 92/69 L 105/78 109/84 Blood Pressure Mean 76 87 92 Pulse Oximetry 97 96 Oxygen Delivery Method Sepsis Recent Fever Within 48 Hours Sepsis New/Unexplained Change in Mental Status Sepsis Action Taken by Nursing 09/19/20 14:10 09/19/20 14:16 09/19/20 14:18 Temperature Temperature Source Pulse Rate Pulse Rate [Left] 107 H Pulse Rate from SpO2 Sensor 117 H 115 H Respiratory Rate 19 Respiratory Effort / Characteristics Non-Labored Spontaneous Blood Pressure 126/64 102/83 Blood Pressure Mean 84 89 Pulse Oximetry 99 93 97 Oxygen Delivery Method Room Air Sepsis Recent Fever Within 48 Hours Sepsis New/Unexplained Change in Mental Status Sepsis Action Taken by Nursing 09/19/20 14:20 09/19/20 14:25 09/19/20 14:30 Temperature Temperature Source Pulse Rate 108 H 108 H 102 H Pulse Rate [Left] Pulse Rate from SpO2 Sensor 109 H 116 H 117 H Respiratory Rate 15 16 23 Respiratory Effort / Characteristics Blood Pressure 113/77 115/79 113/81 Blood Pressure Mean 89 91 91 Pulse Oximetry 100 96 96 Oxygen Delivery Method Sepsis Recent Fever Within 48 Hours Sepsis New/Unexplained Change in Mental Status Sepsis Action Taken by Nursing 09/19/20 14:35 09/19/20 14:40 09/19/20 14:45 Temperature Temperature Source Pulse Rate 98 H 114 H 112 H Pulse Rate [Left] Pulse Rate from SpO2 Sensor 96 H 122 H 122 H Respiratory Rate 14 12 16 Respiratory Effort / Characteristics Blood Pressure 134/91 125/69 112/82 Blood Pressure Mean 105 87 92 Pulse Oximetry 94 97 98 Oxygen Delivery Method Sepsis Recent Fever Within 48 Hours Sepsis New/Unexplained Change in Mental Status Sepsis Action Taken by Nursing GENERAL: alert, well appearing, well nourished, no distress, non-toxic, handcuffed at wrists and ankles EYE EXAM: normal conjunctiva, PERRL and EOM's grossly intact OROPHARYNX: no exudate, no erythema, lips, buccal mucosa, and tongue normal and mucous membranes are moist NECK: supple, no nuchal rigidity, no adenopathy, non-tender LUNGS: Clear to auscultation. Normal chest wall mechanics, no w/r/r HEART: no murmurs, S1 normal and S2 normal, pacemaker noted left ant/sup chest wall, a.fib on tele at 138 ABDOMEN: abdomen soft, non-tender, normo-active bowel sounds, no masses, no rebound or guarding. BACK: Back is symmetrical on inspection and there is no deformity, no midline tenderness, no CVA tenderness. SKIN: no rashes and no bruising UPPER EXTREMITIES: upper extremities are grossly normal. FROM, nml pulses b/l. LOWER EXTREMITIES: No pitting edema. FROM, nml pulses b/l. NEURO EXAM: Normal sensorium, cranial nerves II-XII grossly intact, normal speech, no gross weakness of arms, no gross weakness of legs. Gross sensation intact. Course Course 1140: Patient confirms he is actively receiving chemotherapy infusions for treatment of his lung cancer. Patient states he also previously had radiation, no surgery. Patient states his last infusion was last week. He has gone through 2 cycles of chemotherapy. 1400: Patient updated on results and plan. Discussed he will need continuous infusions and repletion of his magnesium level as well as monitoring of his atri al fibrillation. Patient was started on a Cardizem drip. Patient did have a brief episode of hypotension when he got up to use the restroom however recovered upon sitting. Case discussed with hospitalist for additional evaluation and management. Administered Medications Metoprolol Tartrate (Metoprolol Tartrate 1 Mg/Ml Vial) 5 mg IV Q5M PRN PRN Reason: Tachycardia Stop: 10/19/20 17:04 Last Admin: 09/19/20 17:25 Dose: 5 mg Documented by: [id number] Discontinued Medications Enoxaparin Sodium (Enoxaparin 1.5 Mg/Kg) 130 mg 1.5 mg/kg (130 mg) SC NOW STA Stop: 09/19/20 13:03 Last Admin: 09/19/20 13:34 Dose: Not Given Documented by: [id number] Enoxaparin Sodium (Enoxaparin 150 Mg/Ml Syr) 129 mg SQ NOW STA Stop: 09/19/20 13:12 Last Admin: 09/19/20 13:33 Dose: 129 mg Documented by: [id number] Magnesium Sulfate/Dextrose (Magnesium Sulfate / D5w) 1 gm in 100 mls @ 100 mls/ hr IV Q1H JARRET Stop: 09/19/20 13:19 Last Infusion: 09/19/20 13:36 Dose: 0 mls/hr Documented by: [id number] Admin: 09/19/20 12:29 Dose: 100 mls/hr Documented by: [id number] Infusion: 09/19/20 12:27 Dose: 100 mls/hr Documented by: [id number] Admin: 09/19/20 11:27 Dose: 100 mls/hr Documented by: [id number] Diltiazem HCl 125 mg/ Dextrose 125 mls @ 5 mls/hr IV .Q24H JARRET; Protocol Stop: 10/19/20 12:59 Last Titration: 09/19/20 17:32 Dose: 0 mg/hr, 0 mls/hr Documented by: [id number] Cosigned by: [id number] Admin: 09/19/20 13:46 Dose: 5 mg/hr, 5 mls/hr Documented by: [id number] Cosigned by: [id number] Ioversol (Optiray 320 125ml) 120 ml IV ONCE ONE Stop: 09/19/20 12:20 Last Admin: 09/19/20 12:19 Dose: 120 ml Documented by: [id number] Levalbuterol HCl (Levalbuterol 1.25mg/0.5ml Neb) 1.25 mg NEB NOW STA Stop: 09/19/20 14:08 Last Admin: 09/19/20 14:17 Dose: 1.25 mg Documented by: [id number] Miscellaneous (Stat Iv Infusion Titration Per Protocol) 1 ea N/A NOW STA Stop: 09/19/20 12:47 Last Admin: 09/19/20 14:33 Dose: 1 ea Documented by: [id number] Warfarin Sodium (Warfarin Sod 5 Mg Tab) 5 mg PO NOW ONE Stop: 09/19/20 13:03 Last Admin: 09/19/20 14:32 Dose: 5 mg Documented by: [id number] Critical Care Time Critical Care Time: Yes Total Critical Care Time: 39 Critical care of 39 min performed to assess and manage high likelihood of life- threatening hypomagnesemia and dysrhythmia, involving labs and imaging performed with assessment to evaluate dysrhythmia diagnosis with frequent reassessment. This time includes bedside time, treatment discussions with pat ient/family/consultants, documentation time and excludes procedure time. Medical Decision Making Differential Diagnosis Differential diagnoses includes but is not limited to pneumonia, bronchitis, COPD/Asthma exacerbation, pneumothorax, pulmonary embolism, congestive heart failure, acute coronary syndrome, premature contractions, electrolyte abnormality, cardiac dysrhythmia, thyroid dysfunction, pulmonary embolism, infe ction, gastrointestinal, as well as others were entertained. Medical Records Attestation: I reviewed the patient's medical records. Home Medications Current Medication List: was personally reviewed by me Laboratory Data Attestation: I reviewed the patient's lab results. Result diagrams: 09/19/20 10:40 09/19/20 10:40 Lab Results 09/19/20 09/19/20 09/19/20 Range/Units 10:40 10:40 10:40 WBC 0.63 L* (4.8-10.8) K/uL RBC 2.51 L (4.7-6.1) M/uL Hgb 7.9 L (14.0-18.0) g/dL Hct 22.2 L (42-52) % MCV 88.4 (80-100) fL MCH 31.5 (25-34) pg MCHC 35.3 (32-36) g/dL RDW Std Deviation 55.2 H (36.4-46.3) fL RDW Coeff of Ivis 17.0 H (11.5-14.5) % Plt Count 70 L (130-400) K/uL MPV 10.0 (7.4-10.4) fL Immature Gran % (Auto) 6.3 % Neut % (Auto) 17.6 % Lymph % (Auto) 44.4 % Bulloch % (Auto) 22.2 % Eos % (Auto) 1.6 % Baso % (Auto) 7.9 % Neut # (Auto) 0.11 L* (1.4-6.5) K/uL Lymph # (Auto) 0.28 L (1.2-3.4) K/uL [place] # (Auto) 0.14 (0.11-0.59) K/uL Eos # (Auto) 0.01 (0-0.5) K/uL Baso # (Auto) 0.05 (0-0.2) K/uL Immature Gran # (Auto) 0.04 H (0.00-0.02) K/uL Toxic Granulation 1+ Dohle Bodies 1+ PT 13.8 H (9.0-12.0) Seconds INR 1.4 H (0.9-1.1) Sodium 137 (136-145) mmol/L Potassium 3.2 L (3.5-5.1) mmol/L Chloride 99 (98-107) mmol/L Carbon Dioxide 28 (21-32) mmol/L Anion Gap 10.0 (3-11) BUN 24 H (7-18) mg/dl Creatinine 1.61 H (0.6-1.4) mg/dl Est Cr Clr Drug Dosing 44.4 ml/min Est GFR ( Amer) 48.4 Est GFR (Non-Af Amer) 41.8 BUN/Creatinine Ratio 14.8 (10-20) Glucose 92 (70-99) mg/dl Calcium 7.8 L (8.5-10.1) mg/dl Magnesium 0.8 L* (1.8-2.4) mg/dl Iron (35-175) mcg/dl TIBC (250-450) mcg/dl Transferrin (200-360) mg/dl Transferrin % Sat (20-50) % Ferritin (8-388) ng/ml Total Bilirubin 0.8 (0.2-1) mg/dl AST 8 L (15-37) U/L ALT 20 (12-78) U/L Alkaline Phosphatase 119 H (45-117) U/L Troponin I < 0.015 (0-0.045) ng/ml NT-Pro-B Natriuret Pep 5220 H (0-900) pg/ml Total Protein 6.0 L (6.4-8.2) gm/dl Albumin 3.4 (3.4-5.0) gm/dl Globulin 2.6 (2.5-4.0) gm/dl Albumin/Globulin Ratio 1.3 (0.9-2) TSH (0.300-4.500) uIu/ml COVID-19 Eval Order SARS-CoV-2, RNA, NAAT (NEGATIVE) 09/19/20 09/19/20 09/19/20 Range/Units 10:40 13:00 13:00 WBC (4.8-10.8) K/uL RBC (4.7-6.1) M/uL Hgb (14.0-18.0) g/dL Hct (42-52) % MCV (80-100) fL MCH (25-34) pg MCHC (32-36) g/dL RDW Std Deviation (36.4-46.3) fL RDW Coeff of Ivis (11.5-14.5) % Plt Count (130-400) K/uL MPV (7.4-10.4) fL Immature Gran % (Auto) % Neut % (Auto) % Lymph % (Auto) % Bulloch % (Auto) % Eos % (Auto) % Baso % (Auto) % Neut # (Auto) (1.4-6.5) K/uL Lymph # (Auto) (1.2-3.4) K/uL [place] # (Auto) (0.11-0.59) K/uL Eos # (Auto) (0-0.5) K/uL Baso # (Auto) (0-0.2) K/uL Immature Gran # (Auto) (0.00-0.02) K/uL Toxic Granulation Dohle Bodies PT (9.0-12.0) Seconds INR (0.9-1.1) Sodium (136-145) mmol/L Potassium (3.5-5.1) mmol/L Chloride (98-107) mmol/L Carbon Dioxide (21-32) mmol/L Anion Gap (3-11) BUN (7-18) mg/dl Creatinine (0.6-1.4) mg/dl Est Cr Clr Drug Dosing ml/min Est GFR ( Amer) Est GFR (Non-Af Amer) BUN/Creatinine Ratio (10-20) Glucose (70-99) mg/dl Calcium (8.5-10.1) mg/dl Magnesium (1.8-2.4) mg/dl Iron 56 (35-175) mcg/dl TIBC 241 L (250-450) mcg/dl Transferrin 177 L (200-360) mg/dl Transferrin % Sat 22 (20-50) % Ferritin 440.4 H (8-388) ng/ml Total Bilirubin (0.2-1) mg/dl AST (15-37) U/L ALT (12-78) U/L Alkaline Phosphatase (45-117) U/L Troponin I (0-0.045) ng/ml NT-Pro-B Natriuret Pep (0-900) pg/ml Total Protein (6.4-8.2) gm/dl Albumin (3.4-5.0) gm/dl Globulin (2.5-4.0) gm/dl Albumin/Globulin Ratio (0.9-2) TSH 1.160 (0.300-4.500) uIu/ml COVID-19 Eval Order Covid19 IDNow atMWIC SARS-CoV-2, RNA, NAAT NEGATIVE (NEGATIVE) Imaging Data Radiologist's Impression: XR chest 1V portable HISTORY: Shortness of breath. COMPARISON: Chest 07/14/2020. FINDINGS: No pneumothorax. No pleural effusions. The patient's right hilar lymphadenopathy and right lower lobe mass or not well visualized and have likely decreased in size. There is left-sided dual-chamber pacemaker. Emphysema. Improvement in the mild interstitial thickening. No new focal lung consolidations to suggest pneumonia. No evidence for pulmonary edema. Redemonstration of the IMPRESSION: 1. No acute process within the chest. 2. Emphysema. 3. The patient's known right hilar lymphadenopathy and right lower lobe mass are not well visualized and therefore likely decreased in size. ACT 112: Negative or not required by law. Electronically signed by: Layton Dominguez M.D. 09/19/2020 10:[address] ANGIOGRAM OF THE CHEST CLINICAL HISTORY: Atypical chest pain. Possible pulmonary embolism. COMPARISON STUDY: 07/11/2020 TECHNIQUE: Following the IV administration of 120 mL of Optiray-320, CT an giogram of the thorax was performed from the thoracic inlet to the lung bases utilizing the pulmonary embolus protocol. Images are reviewed in the axial, sagittal, and coronal planes. IV contrast was administered without complication. MIP imaging was performed. A dose lowering technique was utilized adhering to the principles of ALARA. 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 Within the upper abdomen, there is slight increase in the perihepatic/subcap sular hepatic fluid measuring 14 mm in diameter. There is slight interval decrease in the size of the enlarged subcarinal lymph node There is dilatation of the ascending thoracic aorta which measures 39 mm. There were no pulmonary artery filling defects to indicate acute pulmonary embolism. There is a trace left pleural effusion There is interval decrease in the size of the right lower lobe pulmonary mass currently measuring 48 x 29 mm. There are right lower lobe atelectatic changes. There is pulmonary emphysema. There is a new nonspecific 5 mm left lower lobe pulmonary nodule. There are multiple vertebral body compression deformities. IMPRESSION: 1. No evidence of acute pulmonary embolism 2. Interval decrease in the size of the right lower lobe pulmonary mass. Interval decrease in the size of the pathologic adenopathy 3. Ectasia of the thoracic aorta 4. Pulmonary emphysema 5. Multiple vertebral body compression fractures 6. Slight interval increase in the size of a small right subcapsular hepatic fluid collection 7. Interval development of a new 5 mm left lower pulmonary nodule. Attention to this nodule is recommended on follow-up imaging. ACT 112: Negative or not required by law. Electronically signed by: Faizan Carbajal M.D. 09/19/2020 12:37 PM ECG Data Attestation: I personally reviewed and interpreted this ECG as follows: Indication: + SOB/dyspnea Rate (beats per minute): 131 Rhythm: + atrial fibrillation ECG Intervals/blocks: + Normal QRS and + Prolonged QT ECG [place]: + Normal ECG ST segments: + Nonspecific ST abnormalities MDM Narrative This is a 75-year-old male presents via EMS due to [facility] concern for his rapid heart rate. Patient has a long history of atrial fibrillation, states he takes medication for this as well as blood thinners. Notes according to EMS state that staff told them they had been decreasing his beta-dilip recently. While there was no explanation as to why, I suspect this may have been in part due to the adverse effects in COPD patients regarding her respiratory status with beta-dilip use, although it does not appear the patient was on significantly elevated doses of beta-blockade. Patient states he does get short of breath with exertion however assumed this was related to his COPD and lung cancer for which he is currently getting chemotherapy. Patient had no complaints at bedside, denies any sense of palpitations or chest discomfort, and other than the rapid atrial fibrillation was hemodynamically stable. Labs drawn and sent, chest x-ray performed. Patient found to be pancytopenic, likely related to his ongoing chemotherapy. Patient has been afebrile. Patient's troponin negative, BNP elevated although lower compared to prior. Patient was found to be subtherapeutic on his INR so he was sent for additional CT imaging to rule out PE. No CT evidence of PE, mass noted to be smaller in size, no other acute pulmonary pathology seen. Of note patient's magnesium level came back at 0.8. Given need for additional rate control of his atrial fibrillation, ongoing magnesium infusion to replete his level which will take several hours, risk of evolving infectious or pulmonary pathology given other past medical history, case discussed with hospitalist for additional evaluation and management. Patient was covered with a dose of Lovenox and given an additional dose of Coumadin here and lieu of starting a heparin drip. Patient had no other new or evolving symptoms while in the emergency room. Patient kept aware of all results and was in agreement with plan. Patient was started on a Cardizem drip for the atrial fibrillation. An order was placed for continuous cardiac monitoring. The monitor shows a rate of _131 with _atrial fibrillation_ rhythm. Impression & Plan Atrial fibrillation, COPD (chronic obstructive pulmonary disease), Lung mass, Hypomagnesemia, Pancytopenia, Dyspnea Discharge Plan Visit Data Chief Complaint: Cardiac Assessment ED Provider: Marybeth Lawson Discharge Problem: Atrial fibrillation, COPD (chronic obstructive pulmonary disease), Lung mass, Hypomagnesemia, Pancytopenia, Dyspnea Patient Disposition: Admitted As Inpatient Discharge Instructions Interventions: ED Discharge Assessment Last Done: 09/19/20 16:41 Discharge Problem: Atrial fibrillation Qualifiers: Atrial fibrillation type: persistent (not longstanding) Qualified Code(s): I48.19 - Other persistent atrial fibrillation COPD (chronic obstructive pulmonary disease) Qualifiers: COPD type: unspecified COPD Qualified Code(s): J44.9 - Chronic obstructive pulmonary disease, unspecified Dyspnea Qualifiers: Dyspnea type: dyspnea on exertion Qualified Code(s): R06.00 - Dyspnea, unspecified
--- NOTE | 2020-09-19 10:31 | XRay Report ---
XR chest 1V portable HISTORY: Shortness of breath. COMPARISON: Chest 07/14/2020. FINDINGS: No pneumothorax. No pleural effusions. The patient's right hilar lymphadenopathy and right lower lobe mass or not well visualized and have likely decreased in size. There is left-sided dual-ch chayito pacemaker. Emphysema. Improvement in the mild interstitial thickening. No new focal lung consol idations to suggest pneumonia. No evidence for pulmonary edema. Redemonstration of the IMPRESSION: 1. No acute process within the chest. 2. Emphysema. 3. The patient's known right hilar lymphadenopathy and right lower lobe mass are not well visualized and therefore likely decreased in size. ACT 112: Negative or not required by law. Electronically signed by: Layton Dominguez M.D. 09/19/2020 10:30 AM
[2020-09-19 10:51] LABS: Mean Corpuscular Hgb Conc 35.3 g/dL (32-36)
[2020-09-19 11:01] LABS: INR 1.4 (0.9-1.1); Prothrombin Time 13.8 Seconds (9.0-12.0)
--- NOTE | 2020-09-19 11:12 | Electrocardiogram Report ---
Test Reason : Blood Pressure : / mmHG Vent. Rate : 131 BPM Atrial Rate : 131 BPM P-R Int : 000 ms QRS Dur : 102 ms QT Int : 398 ms P-R-T Axes : 000 075 -80 degrees QTc Int : 587 ms Poor data quality, interpretation may be adversely affected Atrial fibrillation with rapid ventricular response Low voltage QRS Incomplete right bundle branch block Cannot rule out Anterior infarct , age undetermined Abnormal ECG When compared with ECG of 11-JUL-2020 14:11, Vent. rate has increased BY 46 BPM Confirmed by Anthony Calle ([id number]) on 09/19/2020 11:12:06 AM Referred By: REFERRED SELF Confirmed By:Anthony Calle
[2020-09-19 11:14] LABS: Alanine Aminotransferase 20 U/L (12-78); Albumin Globulin Ratio 1.3 (0.9-2); Albumin Level 3.4 gm/dl (3.4-5.0); Alkaline Phosphatase 119 U/L (45-117); Aspartate Aminotransferase 8 U/L (15-37); BUN Creatinine Ratio 14.8 (10-20); Bilirubin,Total 0.8 mg/dl (0.2-1); Blood Urea Nitrogen 24 mg/dl (7-18); Calcium 7.8 mg/dl (8.5-10.1); Carbon Dioxide 28 mmol/L (21-32); Chloride 99 mmol/L (98-107); Creatinine Clr Calc Pharmacy 44.4 ml/min; Est GFR (African American) 48.4; Est GFR (Non-African American) 41.8; Globulin 2.6 gm/dl (2.5-4.0); Glucose 92 mg/dl (70-99); Magnesium 0.8 mg/dl (1.8-2.4); NT Pro B Type Natriuretic Pept 5220 pg/ml (0-900); Potassium 3.2 mmol/L (3.5-5.1); Sodium 137 mmol/L (136-145); Troponin I < 0.015 ng/ml (0-0.045)
[2020-09-19 11:27] LABS: Hematocrit (blood only) 22.2 % (42-52); Hemoglobin 7.9 g/dL (14.0-18.0); Mean Corpuscular Hemoglobin 31.5 pg (25-34); Mean Corpuscular Volume 88.4 fL (80-100); Platelet Count 70 K/uL (130-400); RDW Standard Deviation 55.2 fL (36.4-46.3); Red Blood Count 2.51 M/uL (4.7-6.1); White Blood Count 0.63 K/uL (4.8-10.8)
[2020-09-19] MEDS: MAGNESIUM SULFATE / D5W 1 GM/100 ML BAG IV SCH ×6 (11:27→23:32)
[2020-09-19 11:28] LABS: Basophils # (auto) 0.05 K/uL (0-0.2); Basophils % (auto) 7.9 %; Eosinophils # (auto) 0.01 K/uL (0-0.5); Eosinophils % (auto) 1.6 %; Immature Granulocytes # (auto) 0.04 K/uL (0.00-0.02); Immature Granulocytes % (auto) 6.3 %; Lymphocytes # (auto) 0.28 K/uL (1.2-3.4); Lymphocytes % (auto) 44.4 %; Monocytes # (auto) 0.14 K/uL (0.11-0.59); Monocytes % (auto) 22.2 %; Neutrophils # (auto) 0.11 K/uL (1.4-6.5); Neutrophils % (auto) 17.6 %
[2020-09-19 12:01] LABS: Dohle Bodies 1+; Toxic Granulation 1+
[2020-09-19] MEDS ORDERED: OPTIRAY 320 125ml IV ONE (12:19)
--- NOTE | 2020-09-19 12:38 | CT Scan Report ---
CT ANGIOGRAM OF THE CHEST CLINICAL HISTORY: Atypical chest pain. Possible pulmonary embolism. COMPARISON STUDY: 07/11/2020 TECHNIQUE: Following the IV administration of 120 mL of Optiray-320, CT angiogram of the thorax was p erformed from the thoracic inlet to the lung bases utilizing the pulmonary embolus protocol. Images a re reviewed in the axial, sagittal, and coronal planes. IV contrast was administered without complica tion. MIP imaging was performed. A dose lowering technique was utilized adhering to the principles o f ALARA. 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 Within the upper abdomen, there is slight increase in the perihepatic/subcapsular hepatic fluid measu ring 14 mm in diameter. There is slight interval decrease in the size of the enlarged subcarinal lymph node There is dilatation of the ascending thoracic aorta which measures 39 mm. There were no pulmonary artery filling defects to indicate acute pulmonary embolism. There is a trace left pleural effusion There is interval decrease in the size of the right lower lobe pulmonary mass currently measuring 48 x 29 mm. There are right lower lobe atelectatic changes. There is pulmonary emphysema. There is a new nonspecific 5 mm left lower lobe pulmonary nodule. There are multiple vertebral body compression deformities. IMPRESSION: 1. No evidence of acute pulmonary embolism 2. Interval decrease in the size of the right lower lobe pulmonary mass. Interval decrease in the siz e of the pathologic adenopathy 3. Ectasia of the thoracic aorta 4. Pulmonary emphysema 5. Multiple vertebral body compression fractures 6. Slight interval increase in the size of a small right subcapsular hepatic fluid collection 7. Interval development of a new 5 mm left lower pulmonary nodule. Attention to this nodule is recomm ended on follow-up imaging. ACT 112: Negative or not required by law. Electronically signed by: Faizan Carbajal M.D. 09/19/2020 12:37 PM
[2020-09-19] MEDS ORDERED: STAT IV Infusion **Titration per Protocol STA (12:46)
[2020-09-19] MEDS ORDERED: dilTIAZem HCL 125 MG in DEXTROSE 5% 100 ML IV SCH (13:00)
[2020-09-19] MEDS ORDERED: WARFARIN SOD 5 MG TAB PO ONE (13:02)
[2020-09-19] MEDS ORDERED: ENOXAPARIN 1.5 MG/KG SC STA (13:02)
[2020-09-19] MEDS ORDERED: ENOXAPARIN 150 MG/ML SYR SQ STA (13:11)
--- NOTE | 2020-09-19 13:24 | History & Physical Report ---
Date of Service September 19, 2020 Assessment & Plan (1) Atrial fibrillation: EKG at assisted with afib RVR with rates 120bpm, reported rates up to 160s COVID 19 negative CXR without acute process CTA NEGATIVE for PE Cardizem gtt initiated by ER physician -- rates 104bpm currently Consider starting metoprolol low dose as patient recently weaned off usual propranolol 40mg BID Will check TSH Daily weight I&Os D/c Cardizem and instead give metoprolol 12.5mg PO now and utilize Lopressor IV prn -- consider low dose BB at d/c Limited ECHO ordered Will order 20mg IV lasix (plus 40meq PO KCl for K3.3) for abdominal fullness Mag critically low 0.8 and getting IV replacement -- will order additional 4gm IV Serial EKGs Repeat labs this evening and continue to monitor/replace electrolytes as needed (2) Hypomagnesemia: Mag 0.8 -- getting 2gm by ER physician and will order addidtional 4gms and repeat labs this afternoon continued supplementation as needed also with hypokalemia with K 3.3 and will replace monitor labs in AM (3) Abdominal pain: Hx pancreatic lesion Slight interval increase in the size of a small right subcapsular hepatic fluid collection on imaging on admission for CTA for PE (negative) With RUQ discomfort on examination -- will order imaging of RUQ. [facility] if warranted Hx elevated Tbili but normal on admission, however alk phos elevated -- ? congestion from fluid overload with elevated BP Not requesting anything for pain at this time Continue to monitor (4) Small cell lung 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: follows locally currently undergoing chemo/XRT Will consult Dr. Branham -- appreciate assistance Last admission needed neupogen x 3 doses while inpatient and currently pancytopenic (recent chemo) Will order one 480mcg SC and await further input from Dr. Branham CTA with improvement of one mass but interval progression of another completed chemo/XRT on 08/30 Chemo consisted of etoposide and cisplatin. got [id number] XRT (5) Lung mass: See above (6) COPD (chronic obstructive pulmonary disease): 90% on RA CXR without acute process Continue xopenex HFA, alvesco (non-formulary and will ask assisted to bring in), motelukast 10mg daily, spiriva 1 puff daily (7) Elevated brain natriuretic peptide (BNP) level: prior elevation 10k currently 5k afib w rvr contribution possibly to overload state consider diuretics however CXR without congestion (however even last admission CXR appeared stable and continued diuretics). Not currently on any maintenance diuretics daily weight appears similar to discharge Jul 2020 (8) Fracture of greater trochanter of left femur: hx of, Jul 2020 Conservative treatment at that time. no rehab d/t active XRT therapy consider PT/oT following completion of such if needed (9) Hyperlipidemia: continue atorvastatin 20mg daily (10) Pancreatic lesion: known -- did not want follow up last admission consider EUS with [facility] if warranted/patient agreeable (11) Schizophrenia: continue benztropine 1mg daily, haloperidol 3mg BID, hydroxyzine 25mg HS (12) Hypokalemia: See above, K 3.3 BMP in AM (13) Neutropenia: noted will place on precautions oncology consult as above CBC in AM (14) Anemia: hgb low at 7.9 hemoglobin decreased to 7.1 subsequently transfusion will be ordered in anticoagulantion will be held checking CBC in the morning to determine if safe to resume as the patient has a lower platelet count and concern for rapid reduction in hemoglobin since admission which might be spurred upon by anticoagulation. Patient continues on omeprazole twice a day which may be substituted by pharmacy Will add iron studies/B12/folate to labs and replace if needed will hold off on transfusion for now and monitor counts in AM will obtain fecal occult blood for completeness CBC in AM (15) Pancytopenia: noted heme/onc as above GERD - continue omeprazole 40mg daily -- protonix while inpatient SSS - Hx of -s/p pacemaker - pacemaker interrogation ordered FULL CODE Dispo:from assisted, likely to remain hospitalized for 2-3 days (16) BPH (benign prostatic hyperplasia): Flomax Monitor UO (17) DVT (deep venous thrombosis): INR subtherapeutic Recent UE DVT LEFT arm Lovenox dose by ER provider and will continue coumadin Repeat INR / PTT in AM History of Present Illness Primary Care Provider: CLAU Bolanos 75 year old male with PMHx significant for small cell lung ca (on chemo/XRT), recent fall w/ left non-displaced greater trochanteric fracture managed conservatively Jul 2020, COPD, Atrial fibrillation, BPH, Schizophrenia, HLD, pancreatic lesion, left upper extremity DVT on coumadin and presented to the emergency department for concerns of possible exposure to coronavirus and abnormal EKG which showed atrial fibrillation with rvr with rate 120bpm but reported rates up to 160s. Recently reduced propranolol due to low HR by assisted and has a history of afib for years. Denies any palpitations, racing heart. Does have occasional shortness of breath but states this is mostly with exertion. No chest pain, fever, chills, abdominal pain, nausea, vomiting or change in bowels, hematuria. In ER was found to be hypomagnesemic with mag 0.8, hypokalemia, neutropenic (just got chemo), with atrial fibrillation with RVR. CBC with WBC 0.63k, h/h 7.9/22.2, platelets 70. INR 1.4, PTT 13.8 Creatinine elevated to 1.61 BNP 5220 (prior 10k) CXR without acute process, emphysema noted. Known R hilar lymphadenopathy and RLL mass not well visualize and likely decreased in size. CTA without acute PE. Interval decrease in size of RLL mass, interval decrease in size of pathologic adenopathy, pulm emphysema, slight increase in size of small right subcapsular hepatic fluid collection, interval development of new 5mm LLL pulmonary nodule (attention to nodule recommended on f/u imaging). Receiving IV mag now. 129mcg Lovenox SQ Started on Cardizem gtt for afib RVR with rates to 120s. Allergies Allergy/AdvReac Type Severity Reaction Status Date / Time No Known Allergies Allergy Verified 09/19/20 10:13 Home Medications Medication Instructions Recorded Confirmed Type Alvesco 2 puff INHALATION BID 05/09/20 09/19/20 History Senna Plus 2 tab-cap PO QAM 05/09/20 09/19/20 History Spiriva with HandiHaler 1 cap INHALATION QAM 05/09/20 09/19/20 History atorvastatin 20 mg PO HS 05/09/20 09/19/20 History benztropine 1 mg PO QAM 05/09/20 09/19/20 History haloperidol 1 mg PO BID 05/09/20 09/19/20 History haloperidol 2 mg PO BID 05/09/20 09/19/20 History hydroxyzine HCl 25 mg PO BID 05/09/20 09/19/20 History levalbuterol tartrate [Xopenex HFA] 2 inh INHALATION QID PRN 05/09/20 09/19/20 History montelukast 10 mg PO QAM 05/09/20 09/19/20 History tamsulosin 0.4 mg PO HS 05/09/20 09/19/20 History Magic Swizzle 1 dose PO ACHS 09/19/20 09/19/20 History doxycycline hyclate 100 mg PO BID 09/19/20 09/19/20 History omeprazole 40 mg PO QAM 09/19/20 09/19/20 History warfarin 2 mg PO QAM 09/19/20 09/19/20 History Past Med/Surg History Medical History Anxiety Atrial fibrillation ANTICOAGULATED WITH COUMADIN Chronic obstructive pulmonary disease Hyperlipidemia Hypertension Inmate in correctional facility Nocturia Phlebitis DEEP LOWER EXTREMITY. Pulmonary mass Shortness of breath Sick sinus syndrome s/p insertion of PPM 06/02/16 Syncope Implantation of dual-chamber [employer] pacemaker 06/02/2016 Surgical History History of appendectomy History of tonsillectomy Status post biventricular cardiac pacemaker insertion 2015. Has followed with Dr. Calle. 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 Required: No Beliefs That Will Affect Care: None marital status: Single Current Living Situation: Other Current Living Situation Comment: CLAU Bolanos current occupational status: unemployed Other Information That Helps Us Care for You: No Feels Safe at Home: Yes Safety Concerns: Feels Safe At This Time caffeine: No during the past year weight has: remained stable Dental Care, Regularly: No Seatbelt Use: always Sunscreen Use: No Assistive Devices: None Review of Systems Review of Systems: All systems reviewed & are unremarkable except as noted in HPI & below Physical Exam Constitutional: + ill appearing, + disheveled, cooperative and comfortable; no acute distress Eyes: + anicteric sclerae and PERRL ENMT: mmm Neck: normal visual inspection and trachea midline Respiratory: able to speak in complete sentences; no labored breathing, no cough and not tachypneic Auscultation: + diminished lung sounds (coarse ) and + crackles (R posterior, faint); no wheezes Cardiovascular: Rate/Rhythm: + irregularly irregular Heart Sounds: no murmur Vessels: no JVD Extremities: no calf tenderness and no edema Chest (Breasts): Additional Comments: pacemaker present Gastrointestinal (Abdomen): Inspection/Auscultation: + abdomen distended and normal bowel sounds Percussion/Palpation: + abdomen tender (RUQ) and abdomen soft; no guarding and abdomen not rigid Musculoskeletal: Head/Neck/Chest: normocephalic and head atraumatic clubbing noted moves all extremities Skin: cool, dry Neurologic: PERRL, EOMI, accommodation nl, no face palsy, no dysarthria moves all extremities and awake Psychiatric: Orientation: alert and oriented x 3 Genitourinary: NO SUÁREZ Lymphatic: no lymphedema Results & Data Results & Data ([facility]) Vital Signs (Past 12 Hours) Vital Signs Temp Pulse Resp BP Pulse Ox 09/19/20 13:00 124 H 15 124/65 100 09/19/20 12:30 124 H 18 108/85 100 09/19/20 12:28 115 H 15 125/105 H 100 09/19/20 12:00 112 H 16 123/82 100 09/19/20 11:30 135 H 18 122/93 100 09/19/20 11:00 118 H 14 119/86 100 09/19/20 10:30 115 H 17 97 09/19/20 10:19 129 H 15 09/19/20 10:17 36.9 C 130 H 18 118/68 93 09/19/20 10:11 129 H 19 118/87 Laboratory Results 09/19/20 09/19/20 09/19/20 Range/Units 13:00 13:00 10:40 WBC (4.8-10.8) K/uL RBC (4.7-6.1) M/uL Hgb (14.0-18.0) g/dL Hct (42-52) % MCV (80-100) fL MCH (25-34) pg MCHC (32-36) g/dL RDW Std Deviation (36.4-46.3) fL RDW Coeff of Ivis (11.5-14.5) % Plt Count (130-400) K/uL MPV (7.4-10.4) fL Immature Gran % (Auto) % Neut % (Auto) % Lymph % (Auto) % Free[place] % (Auto) % Eos % (Auto) % Baso % (Auto) % Neut # (Auto) (1.4-6.5) K/uL Lymph # (Auto) (1.2-3.4) K/uL [place] # (Auto) (0.11-0.59) K/uL Eos # (Auto) (0-0.5) K/uL Baso # (Auto) (0-0.2) K/uL Immature Gran # (Auto) (0.00-0.02) K/uL Toxic Granulation Dohle Bodies PT (9.0-12.0) Seconds INR (0.9-1.1) Sodium (136-145) mmol/L Potassium (3.5-5.1) mmol/L Chloride (98-107) mmol/L Carbon Dioxide (21-32) mmol/L Anion Gap (3-11) BUN (7-18) mg/dl Creatinine (0.6-1.4) mg/dl Est Cr Clr Drug Dosing ml/min Est GFR ( Amer) Est GFR (Non-Af Amer) BUN/Creatinine Ratio (10-20) Glucose (70-99) mg/dl Calcium (8.5-10.1) mg/dl Magnesium (1.8-2.4) mg/dl Iron Pending TIBC Pending Transferrin Pending Transferrin % Sat Pending Ferritin Pending Total Bilirubin (0.2-1) mg/dl AST (15-37) U/L ALT (12-78) U/L Alkaline Phosphatase (45-117) U/L Troponin I (0-0.045) ng/ml NT-Pro-B Natriuret Pep (0-900) pg/ml Total Protein (6.4-8.2) gm/dl Albumin (3.4-5.0) gm/dl Globulin (2.5-4.0) gm/dl Albumin/Globulin Ratio (0.9-2) TSH Pending COVID-19 Eval Order Covid19 [facility] SARS-CoV-2, RNA, NAAT NEGATIVE (NEGATIVE) 09/19/20 09/19/20 09/19/20 Range/Units 10:40 10:40 10:40 WBC 0.63 L* (4.8-10.8) K/uL RBC 2.51 L (4.7-6.1) M/uL Hgb 7.9 L (14.0-18.0) g/dL Hct 22.2 L (42-52) % MCV 88.4 (80-100) fL MCH 31.5 (25-34) pg MCHC 35.3 (32-36) g/dL RDW Std Deviation 55.2 H (36.4-46.3) fL RDW Coeff of Ivis 17.0 H (11.5-14.5) % Plt Count 70 L (130-400) K/uL MPV 10.0 (7.4-10.4) fL Immature Gran % (Auto) 6.3 % Neut % (Auto) 17.6 % Lymph % (Auto) 44.4 % Freeborn % (Auto) 22.2 % Eos % (Auto) 1.6 % Baso % (Auto) 7.9 % Neut # (Auto) 0.11 L* (1.4-6.5) K/uL Lymph # (Auto) 0.28 L (1.2-3.4) K/uL Free[place] # (Auto) 0.14 (0.11-0.59) K/uL Eos # (Auto) 0.01 (0-0.5) K/uL Baso # (Auto) 0.05 (0-0.2) K/uL Immature Gran # (Auto) 0.04 H (0.00-0.02) K/uL Toxic Granulation 1+ Dohle Bodies 1+ PT 13.8 H (9.0-12.0) Seconds INR 1.4 H (0.9-1.1) Sodium 137 (136-145) mmol/L Potassium 3.2 L (3.5-5.1) mmol/L Chloride 99 (98-107) mmol/L Carbon Dioxide 28 (21-32) mmol/L Anion Gap 10.0 (3-11) BUN 24 H (7-18) mg/dl Creatinine 1.61 H (0.6-1.4) mg/dl Est Cr Clr Drug Dosing 44.4 ml/min Est GFR ( Amer) 48.4 Est GFR (Non-Af Amer) 41.8 BUN/Creatinine Ratio 14.8 (10-20) Glucose 92 (70-99) mg/dl Calcium 7.8 L (8.5-10.1) mg/dl Magnesium 0.8 L* (1.8-2.4) mg/dl Iron TIBC Transferrin Transferrin % Sat Ferritin Total Bilirubin 0.8 (0.2-1) mg/dl AST 8 L (15-37) U/L ALT 20 (12-78) U/L Alkaline Phosphatase 119 H (45-117) U/L Troponin I < 0.015 (0-0.045) ng/ml NT-Pro-B Natriuret Pep 5220 H (0-900) pg/ml Total Protein 6.0 L (6.4-8.2) gm/dl Albumin 3.4 (3.4-5.0) gm/dl Globulin 2.6 (2.5-4.0) gm/dl Albumin/Globulin Ratio 1.3 (0.9-2) TSH COVID-19 Eval Order SARS-CoV-2, RNA, NAAT (NEGATIVE) Diagnostic Findings XR chest 1V portable HISTORY: Shortness of breath. COMPARISON: Chest 07/14/2020. FINDINGS: No pneumothorax. No pleural effusions. The patient's right hilar lymphadenopathy and right lower lobe mass or not well visualized and have likely decreased in size. There is left-sided dual-chamber pacemaker. Emphysema. Improvement in the mild interstitial thickening. No new focal lung consolidations to suggest pneumonia. No evidence for pulmonary edema. Redemonstration of the IMPRESSION: 1. No acute process within the chest. 2. Emphysema. 3. The patient's known right hilar lymphadenopathy and right lower lobe mass are not well visualized and therefore likely decreased in size. CT ANGIOGRAM OF THE CHEST CLINICAL HISTORY: Atypical chest pain. Possible pulmonary embolism. COMPARISON STUDY: 07/11/2020 TECHNIQUE: Following the IV administration of 120 mL of Optiray-320, CT angiogram of the thorax was performed from the thoracic inlet to the lung bases utilizing the pulmonary embolus protocol. Images are reviewed in the axial, sagittal, and coronal planes. IV contrast was administered without complication. MIP imaging was performed. A dose lowering technique was utilized adhering to the principles of ALARA. 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 Within the upper abdomen, there is slight increase in the perihepatic/subcapsular hepatic fluid measuring 14 mm in diameter. There is slight interval decrease in the size of the enlarged subcarinal lymph node There is dilatation of the ascending thoracic aorta which measures 39 mm. There were no pulmonary artery filling defects to indicate acute pulmonary embolism. There is a trace left pleural effusion There is interval decrease in the size of the right lower lobe pulmonary mass currently measuring 48 x 29 mm. There are right lower lobe atelectatic changes. There is pulmonary emphysema. There is a new nonspecific 5 mm left lower lobe pulmonary nodule. There are multiple vertebral body compression deformities. IMPRESSION: 1. No evidence of acute pulmonary embolism 2. Interval decrease in the size of the right lower lobe pulmonary mass. Interval decrease in the size of the pathologic adenopathy 3. Ectasia of the thoracic aorta 4. Pulmonary emphysema 5. Multiple vertebral body compression fractures 6. Slight interval increase in the size of a small right subcapsular hepatic fluid collection 7. Interval development of a new 5 mm left lower pulmonary nodule. Attention to this nodule is recommended on follow-up imaging. ECG Rhythm: atrial fibrillation (with RVR) Supervising Physician Co-Signing Physician Notes Patient was seen and examined independently I discussed the case with Sonia ARROYO I reviewed pertinent past medical social family history and also the plan of care and agree with the plan of care. 75-year-old male who has a history of metastatic small cell lung cancer with concern for pancreatic masses who presents with pancytopenia, atrial fibrillation RVR chronic upper extremity DVT. Patient has declining hemoglobin over the last few hours from admission will require transfusion his atrial fibrillation is not controlled but this may be spurred by his anemia Physical exam he looks chronically ill he has marked swelling to his upper extremities left greater than right he is tachycardic and irregular rhythm consistent with his atrial fibrillation RVR his lungs have decreased breath sounds at the bases his abdomen is tender in the bilateral upper quadrants his extremities have 2+ edema Acute blood loss anemia worsened also by chemotherapy and possibly chronic anticoagulation for both atrial fibrillation and DVT Transfused 2 units packed red blood cells. Holding anticoagulation although was augmented with Lovenox in the emergency department until we have a better understand his CBC in the morning of 09/20. Patient has additional Lopressor available for rapid ventricular rate but hopeful this will improve once his anemia is improved with transfusion. Any exceptions will be noted below PG Care Time/CCT Total # of Minutes Spent Total Time Spent with Patient: Total time spent is greater than 50% in coordination of care (as documented) at patient's floor/unit and/or counseling patient: Coding Level of Care Code 87374 Initial Inpt Care Lvl 3 Diagnoses Atrial fibrillation I48.11 Atrial fibrillation type: longstanding persistent Hypomagnesemia E83.42 Abdominal pain R10.9 Small cell lung 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 C34.90 Lung mass R91.8 COPD (chronic obstructive pulmonary disease) J44.9 Elevated brain natriuretic peptide (BNP) level R79.89 Fracture of greater trochanter of left femur S72.112A Hyperlipidemia E78.5 Pancreatic lesion K86.9 Schizophrenia F20.9 Hypokalemia E87.6 Neutropenia D70.9 Anemia D64.9 Pancytopenia D61.818 BPH (benign prostatic hyperplasia) N40.0 DVT (deep venous thrombosis) I82.409 (1) Atrial fibrillation Atrial fibrillation type: longstanding persistent Qualified Code(s): I48.11 - Longstanding persistent atrial fibrillation
[2020-09-19] MEDS ORDERED: LEVALBUTEROL 1.25MG/0.5ML NEB NEB STA (14:07)
[2020-09-19 15:01] LABS: Ferritin 440.4 ng/ml (8-388); Thyroid Stimulating Hormone 1.16 uIu/ml (0.300-4.500)
[2020-09-19] MEDS ORDERED: FILGRASTIM 480 MCG/1.6 ML VIAL SC ONE (17:05)
[2020-09-19] MEDS ORDERED: NITROGLYCERIN SL 0.4 MG/TAB TAB SL PRN (17:05)
[2020-09-19] MEDS ORDERED: METOPROLOL TARTRATE 1 MG/ML VIAL IV PRN (17:05)
[2020-09-19] MEDS ORDERED: FUROSEMIDE 40 MG/4 ML VIAL IV STA (17:05)
[2020-09-19] MEDS ORDERED: ALBUT/IPRATROP 3MG/0.5MG NEB 3 ML VIAL NEB PRN (17:05)
[2020-09-19] MEDS ORDERED: ACETAMINOPHEN 325 MG TAB PO PRN (17:05)
[2020-09-19] MEDS ORDERED: METOPROLOL TARTRATE 25 MG TAB PO STA (17:05)
[2020-09-19] MEDS ORDERED: NON-FORMULARY MEDICATION (Magic Swizzle 1 EA) PO SCH (17:05)
[2020-09-19] MEDS ORDERED: POTASSIUM CHLORIDE CRTAB 20 MEQ TABCR PO STA ×2 (17:05→17:57)
[2020-09-19] MEDS ORDERED: POLYETHYLENE (MIRALAX) 17 GM PACK PO PRN (17:05)
[2020-09-19] MEDS ORDERED: MAGNESIUM SULFATE / D5W 1 GM/100 ML BAG IV SCH (17:05)
[2020-09-19 18:48] LABS: BUN Creatinine Ratio 14.3 (10-20); Calcium 7.6 mg/dl (8.5-10.1); Creatinine Clr Calc Pharmacy 41.4 ml/min; Est GFR (African American) 49.2; Est GFR (Non-African American) 42.4; Potassium 3.4 mmol/L (3.5-5.1)
[2020-09-19 19:01] LABS: Hematocrit (blood only) 20.3 % (42-52); Hemoglobin 7.1 g/dL (14.0-18.0); Mean Corpuscular Hemoglobin 31.3 pg (25-34); Mean Corpuscular Volume 89.4 fL (80-100); Mean Platelet Volume 10.6 fL (7.4-10.4); Platelet Count 65 K/uL (130-400); Platelet Estimate Decreased (Normal); RDW Coefficient of Variation 16.9 % (11.5-14.5); RDW Standard Deviation 54.7 fL (36.4-46.3); Red Blood Count 2.27 M/uL (4.7-6.1); White Blood Count 0.83 K/uL (4.8-10.8)
[2020-09-19 19:18] LABS: Vitamin B12 > 2000 pg/ml (193-986)
[2020-09-19 19:31] LABS: Magnesium 1.1 mg/dl (1.8-2.4)
[2020-09-19] MEDS ORDERED: SODIUM CHLORIDE 0.9% 250 ML IV PRN ×2 (19:51→20:21)
[2020-09-19] MEDS: haloperidoL 1 MG TAB PO SCH (20:07)
[2020-09-19] MEDS: TAMSULOSIN HCL 0.4 MG CAP PO SCH (20:08)
[2020-09-19] MEDS: ATORVASTATIN 20 MG TAB PO SCH (20:08)
[2020-09-19] MEDS ORDERED: ACETAMINOPHEN 325 MG TAB PO ONE (21:00)
[2020-09-19] MEDS ORDERED: haloperidoL 1 MG TAB PO SCH ×2 (21:00)
[2020-09-19] MEDS: CALCIUM CARBONATE 1250MG TAB PO SCH (22:05)
[2020-09-19] MEDS: PANTOprazole 40 MG in SYRINGE 0 ML IV SCH (22:06)
[2020-09-19] MEDS: hydrOXYzine HCl 25 MG TAB PO SCH (22:07)
[2020-09-20] MEDS: FLUTICASONE FUROATE 200MCG 14 PUFFS/INHALER INH SCH (07:55)
[2020-09-20] MEDS: UMECLIDINIUM BROMIDE 62.5MCG/BLISTER 7 PUFFS/INHALER INH SCH (07:55)
[2020-09-20] MEDS: hydrOXYzine HCl 25 MG TAB PO SCH ×2 (07:55→22:13)
[2020-09-20] MEDS: haloperidoL 1 MG TAB PO SCH ×2 (07:56→22:11)
[2020-09-20] MEDS: MONTELUKAST SODIUM 10 MG TABLET PO SCH (07:56)
[2020-09-20] MEDS: DOCUSATE SODIUM/SENNA 50/8.6MG TAB PO SCH (07:56)
[2020-09-20] MEDS: CALCIUM CARBONATE 1250MG TAB PO SCH ×2 (07:56→22:12)
[2020-09-20] MEDS: BENZTROPINE MESYLATE 1 MG TAB PO SCH (07:57)
--- NOTE | 2020-09-20 08:18 | Ultrasound Report ---
US gallbladder CLINICAL HISTORY: Right upper quadrant pain. Abdominal fullness. COMPARISON STUDY: CT of the abdomen and pelvis July 11, 2020. FINDINGS: There is slight coarsening of hepatic echotexture. Trace perihepatic ascites is noted. Ther e is no biliary ductal dilatation. The common bile duct measures 6 mm in caliber. No hepatic lesions are identified. Pancreas is obscured by overlying bowel gas. No gallstones are noted. There is no rig ht hydronephrosis. IMPRESSION: 1. No gallstones or biliary ductal dilatation. 2. Trace perihepatic ascites. 3. Obscured pancreas due to overlying bowel gas. ACT 112: Negative or not required by law. Electronically signed by: Bakari Trevino M.D. 09/20/2020 8:17 AM
[2020-09-20] MEDS ORDERED: PANTOprazole 40 MG TAB PO SCH (09:00)
--- NOTE | 2020-09-20 09:00 | Cardiology Consultation ---
Date of Consultation September 20, 2020 Assessment & Plan (1) Atrial fibrillation: He has longstanding paroxysmal atrial fibrillation, in the past he was on propranolol for rate control and that appeared to be adequate. As of July 2020 his heart rate was around 70 bpm on average, however his beta-blockers have been withheld, I am not sure exactly why it is reported because of bradycardia but with a pacemaker he cannot have bradycardia. I do not know if it was an error or if there are some other reason the beta-blockers were held. His heart rate is now averaging around 100, and he does need better rate control. I am going to restart beta-blockade, I do not know why he was on propranolol, possibly for historical reasons. I am going to start metoprolol tartrate, this can be switched to metoprolol succinate so that he can get once a day dosing which would probably be more convenient for him. (2) Anticoagulant long-term use: He should be on an anticoagulant, he is reported to be on warfarin although his INR was subtherapeutic on presentation. I would strongly recommend switching to one of the newer agents, he has been in the therapeutic range on warfarin twice out of the last 10 measurements. I have not done that however. (3) Cardiac pacemaker: He has a pacemaker in place since 2015, it is functioning normally. Heart rate trends in the pacemaker as noted above showing elevated heart rate and 80% atrial fibrillation over the last several months, more than historically. Battery voltage is good. The pacemaker is functioning well. I reviewed his pacemaker interrogation in detail. History of Present Illness Reason for Consultation: Atrial fibrillation with rapid ventricular response Attending Physician: Prashanth Raya MD History of Present Illness This is a 75-year-old incarcerated male who has a long history of paroxysmal atrial fibrillation and recurrent syncope. He had periods of sinus arrest lasting up to 6 seconds in duration consistent with sick sinus syndrome therefore a dual-chamber pacemaker was implanted June 02, 2016. He has continued to have intermittent atrial fibrillation and is maintained on warfarin anticoagulation. He also has had recurrent syncope for reasons that are not clear. According to recent records his beta-dilip had been decreased due to a low heart rate (but he has a pacemaker) and then he was being evaluated for possible exposure to coronavirus on September 19, 2020 and was noted to be in atrial fibrillation with a heart rate in the 130 range. He was therefore sent into the emergency room. According the patient he did not have any symptoms of palpitations or rapid heart rate. His presenting electrocardiogram on September 19, 2020 at 10:12 AM shows atrial fibrillation with a heart rate of 131 bpm. 1 done 3 hours earlier prior to presentation here shows a similar pattern and rate. His last pacemaker interrogation prior to this visit was July 13, 2020, this showed paroxysmal atrial fibrillation with rapid heart rates at times and a total of 10% atrial fibrillation over the prior month. Review of pacemaker interrogation shows that he has been in atrial fibrillation 80% of his time since that July interrogation, and that his heart rate has increased from an average of about 70 at that time to about 100 now (presumably due to discontinuation of beta-blockade). His heart rate is set to 60 on the pacemaker. An echocardiogram done July 12, 2020 showed normal left ventricular systolic function with mild right ventricular hypertrophy. At the time my evaluation he was comfortable in bed, he had no symptoms of palpitations, he denies lightheadedness or dizziness and he seems unaware that his medications were being adjusted. Allergies Allergy/AdvReac Type Severity Reaction Status Date / Time No Known Allergies Allergy Verified 09/19/20 10:13 Home Medications Medication Instructions Recorded Confirmed Type Alvesco 2 puff INHALATION BID 05/09/20 09/19/20 History Senna Plus 2 tab-cap PO QAM 05/09/20 09/19/20 History Spiriva with HandiHaler 1 cap INHALATION QAM 05/09/20 09/19/20 History atorvastatin 20 mg PO HS 05/09/20 09/19/20 History benztropine 1 mg PO QAM 05/09/20 09/19/20 History haloperidol 1 mg PO BID 05/09/20 09/19/20 History haloperidol 2 mg PO BID 05/09/20 09/19/20 History hydroxyzine HCl 25 mg PO BID 05/09/20 09/19/20 History levalbuterol tartrate [Xopenex HFA] 2 inh INHALATION QID PRN 05/09/20 09/19/20 History montelukast 10 mg PO QAM 05/09/20 09/19/20 History tamsulosin 0.4 mg PO HS 05/09/20 09/19/20 History Magic Swizzle 1 dose PO ACHS 09/19/20 09/19/20 History doxycycline hyclate 100 mg PO BID 09/19/20 09/19/20 History omeprazole 40 mg PO QAM 09/19/20 09/19/20 History warfarin 2 mg PO QAM 09/19/20 09/19/20 History Patient History Medical History Anxiety Atrial fibrillation ANTICOAGULATED WITH COUMADIN Chronic obstructive pulmonary disease Hyperlipidemia Hypertension Inmate in correctional facility Nocturia Phlebitis DEEP LOWER EXTREMITY. Pulmonary mass Shortness of breath Sick sinus syndrome s/p insertion of PPM 06/02/16 Syncope Implantation of dual-chamber [employer] pacemaker 06/02/2016 Surgical History History of appendectomy History of tonsillectomy Status post biventricular cardiac pacemaker insertion 2015. Has followed with Dr. Calle. Social History Smoking Status: Former smoker Age Started Using Tobacco: 11; Age Quit Using Tobacco: 55; packs per day: 1; Years Smoked: 44; Cigarettes Per Day: 20; Number of Years Since Quit: 20; Second Hand Exposure: No; Do You Dip or Chew Tobacco: No; Hx Alcohol Use: No Hx Substance Use: No Preferred Language: Czech Communication Ability: Effective Visual Impairment: No Limitations Hearing Ability: Normal Sexton Helper Required: No Beliefs That Will Affect Care: None marital status: Single Current Living Situation: Other Current Living Situation Comment: [facility] current occupational status: unemployed Other Information That Helps Us Care for You: No Feels Safe at Home: Yes Safety Concerns: Feels Safe At This Time caffeine: No during the past year weight has: remained stable Dental Care, Regularly: No Seatbelt Use: always Sunscreen Use: No Assistive Devices: None Review of Systems Review of Systems: All systems reviewed & are unremarkable except as noted in HPI & below Physical Exam Physical Exam: Constitutional: Alert, cooperative and in no distress. HEENT: Unremarkable Neck: No jugular venous distention, carotid pulses are irregular but otherwise normal and equal bilaterally without bruits. Pulmonary: Clear to auscultation bilaterally. Cardiac: Irregular rhythm with no murmur, gallop or rub. Abdomen: Soft, nontender with normal bowel sounds. Extremities: No edema. Distal pulses intact. Neurologic: No focal findings. Gait is steady. Skin: No rash, ecchymoses or petechiae. Results & Data ([facility]) Vital Signs (Past 12 Hours) Vital Signs Temp Pulse Pulse Resp BP BP Pulse Ox 09/20/20 08:53 36.8 C 99 H 20 139/89 94 09/20/20 06:22 36.8 C 78 18 120/86 98 09/20/20 05:26 36.5 C 124 H 18 131/67 95 09/20/20 04:26 36.9 C 89 16 124/82 95 09/20/20 03:56 36.8 C 90 16 112/69 98 09/20/20 03:41 36.8 C 104 H 18 120/81 93 09/20/20 03:23 36.9 C 105 H 16 103/69 92 09/20/20 02:12 36.9 C 95 H 18 114/76 95 09/20/20 01:37 36.8 C 110 H 18 125/82 92 09/20/20 00:37 37.2 C 102 H 18 123/82 93 09/19/20 23:37 37.1 C 97 H 18 129/81 92 09/19/20 23:07 36.9 C 94 H 18 126/78 93 09/19/20 22:52 37.1 C 101 H 18 119/82 95 09/19/20 22:33 36.9 C 83 18 126/75 93 Laboratory Results Cardiac Enzymes 09/19/20 09/20/20 Range/Units 10:40 08:22 AST 8 L 9 L (15-37) U/L Troponin I < 0.015 (0-0.045) ng/ml Coagulation 09/19/20 09/20/20 09/20/20 Range/Units 10:40 08:22 08:55 PT 13.8 H Cancelled 13.3 H (9.0-12.0) Seconds APTT Cancelled 31.9 H CBC 09/19/20 09/19/20 09/20/20 Range/Units 10:40 18:11 08:22 WBC 0.63 L* 0.83 L* Cancelled (4.8-10.8) K/uL RBC 2.51 L 2.27 L Cancelled (4.7-6.1) M/uL Hgb 7.9 L 7.1 L Cancelled (14.0-18.0) g/dL Hct 22.2 L 20.3 L* Cancelled (42-52) % Plt Count 70 L 65 L Cancelled (130-400) K/uL Neut # (Auto) 0.11 L* Cancelled (1.4-6.5) K/uL Lymph # (Auto) 0.28 L Cancelled (1.2-3.4) K/uL Larue # (Auto) 0.14 Cancelled (0.11-0.59) K/uL Eos # (Auto) 0.01 Cancelled (0-0.5) K/uL Baso # (Auto) 0.05 Cancelled (0-0.2) K/uL 09/20/20 Range/Units 08:55 WBC 2.73 L (4.8-10.8) K/uL RBC 3.15 L (4.7-6.1) M/uL Hgb 9.9 L (14.0-18.0) g/dL Hct 27.2 L (42-52) % Plt Count 56 L (130-400) K/uL Neut # (Auto) 1.43 (1.4-6.5) K/uL Lymph # (Auto) 0.29 L (1.2-3.4) K/uL Larue # (Auto) 0.90 H (0.11-0.59) K/uL Eos # (Auto) 0.02 (0-0.5) K/uL Baso # (Auto) 0.08 (0-0.2) K/uL Comprehensive Metabolic Panel 09/19/20 09/19/20 09/20/20 Range/Units 10:40 18:11 08:22 Sodium 137 136 136 (136-145) mmol/L Potassium 3.2 L 3.4 L 3.5 (3.5-5.1) mmol/L Chloride 99 99 100 (98-107) mmol/L Carbon Dioxide 28 29 25 (21-32) mmol/L BUN 24 H 23 H 25 H (7-18) mg/dl Creatinine 1.61 H 1.59 H 1.78 H (0.6-1.4) mg/dl Glucose 92 109 H 92 (70-99) mg/dl Calcium 7.8 L 7.6 L 8.3 L (8.5-10.1) mg/dl AST 8 L 9 L (15-37) U/L ALT 20 23 (12-78) U/L Alkaline Phosphatase 119 H 129 H (45-117) U/L Total Protein 6.0 L 6.1 L (6.4-8.2) gm/dl Albumin 3.4 3.5 (3.4-5.0) gm/dl Intake and Output 09/19/20 09/20/20 09/20/20 22:59 06:59 14:59 Intake Total 502.166 / 1622.166 920 / 1622.166 Balance 502.166 / 1622.166 920 / 1622.166 Intake: IV 202.166 / 602.166 200 / 602.166 MAGNESIUM SULFATE / D5W 1 gm In 183.333 / 383.333 200 / 383.333 100 ml @ 50 mls/hr IV Q2H [facility] Rx#:[id number] Cardizem 125 mg In D5 100 ml @ 18.833 / 18.833 5 MG/HR 5 mls/hr IV .Q24H J[facility] Rx#:[id number] Oral 300 / 400 100 / 400 Intake (Blood Product) Amt 0 / 620 620 / 620 Packed Cells, Leukoreduced 310 / 310 Unit [id number] Packed Cells, Leukoreduced 0 / 310 310 / 310 Unit [id number] Other: # Unmeasured Voids 2 1 Weight 83.7 kg 100 kg Weight Measurement Method Built in [facility] Diagnostic Findings Telemetry: Atrial fibrillation, rate has been high since admission, initially around 130 and dropping to somewhere around 100 on average currently. Electrocardiogram: On arrival atrial fibrillation at a heart rate of 131 bpm, incomplete right bundle branch block but no acute changes. PG Care Time/CCT Total # of Minutes Spent Total Time Spent with Patient: Total time spent is greater than 50% in coordination of care (as documented) at patient's floor/unit and/or counseling patient: Coding Level of Care Code 57340 Initial Inpt Care Lvl 3 Diagnoses Atrial fibrillation I48.0 Atrial fibrillation type: paroxysmal Anticoagulant long-term use Z79.01 Cardiac pacemaker Z95.0 (1) Atrial fibrillation Atrial fibrillation type: paroxysmal Qualified Code(s): I48.0 - Paroxysmal atrial fibrillation
[2020-09-20 09:19] LABS: Albumin Level 3.5 gm/dl (3.4-5.0); BUN Creatinine Ratio 13.8 (10-20); Calcium 8.3 mg/dl (8.5-10.1); Creatinine Clr Calc Pharmacy 43.1 ml/min; Est GFR (African American) 42.9; Magnesium 1.8 mg/dl (1.8-2.4); Potassium 3.5 mmol/L (3.5-5.1)
[2020-09-20 09:19] LABS: Hematocrit (blood only) 27.2 % (42-52); Hemoglobin 9.9 g/dL (14.0-18.0); Mean Corpuscular Hemoglobin 31.4 pg (25-34); Mean Corpuscular Hgb Conc 36.4 g/dL (32-36); Mean Corpuscular Volume 86.3 fL (80-100); Mean Platelet Volume 10.1 fL (7.4-10.4); Platelet Count 56 K/uL (130-400); RDW Coefficient of Variation 15.9 % (11.5-14.5); RDW Standard Deviation 50.2 fL (36.4-46.3); Red Blood Count 3.15 M/uL (4.7-6.1); White Blood Count 2.73 K/uL (4.8-10.8)
[2020-09-20 09:26] LABS: Albumin Globulin Ratio 1.4 (0.9-2); Bilirubin,Total 2.3 mg/dl (0.2-1); Globulin 2.6 gm/dl (2.5-4.0); Total Protein 6.1 gm/dl (6.4-8.2)
[2020-09-20 09:32] LABS: INR 1.3 (0.9-1.1); Partial Thromboplastin Ratio 1.2; Partial Thromboplastin Time 31.9 Seconds (21.0-31.0); Prothrombin Time 13.3 Seconds (9.0-12.0)
[2020-09-20 09:48] LABS: Basophils # (auto) 0.08 K/uL (0-0.2); Basophils % (auto) 2.9 %; Eosinophils # (auto) 0.02 K/uL (0-0.5); Eosinophils % (auto) 0.7 %; Giant Platelets 1+; Immature Granulocytes # (auto) 0.01 K/uL (0.00-0.02); Immature Granulocytes % (auto) 0.4 %; Lymphocytes # (auto) 0.29 K/uL (1.2-3.4); Lymphocytes % (auto) 10.6 %; Neutrophils # (auto) 1.43 K/uL (1.4-6.5); Neutrophils % (auto) 52.4 %; Toxic Granulation 1+
--- NOTE | 2020-09-20 10:14 | Consultation Report ---
DATE OF CONSULTATION: 09/20/2020 MEDICAL ONCOLOGY CONSULTATION REASON FOR CONSULTATION: Electrolyte dysfunction in a 75-year-old senior living inmate with small cell lung cancer. HISTORY OF PRESENT ILLNESS: Mr. Nichols is a 75-year-old gentleman well known to [facility], currently under our management for locally advanced small cell lung cancer, status post chemoradiation. He was admitted to [facility] on 09/19 for electrolyte dysfunction (hypomagnesemia, hypokalemia) and atrial fibrillation. Not surprisingly, he was also found to be neutropenic. This gentleman suffers from schizophrenia and dementia and thus I could elicit very little information at bedside. I reviewed his last clinical note through our office, which was on 09/11, at which time he received his 4th and final course of cisplatin and etoposide. Apparently, he has recently completed radiation as well receiving 7000 cGy in total. According to the managing hospitalist, patient has no overt signs of infection. However, concerns are his cytopenias attributable to ongoing treatment. He is receiving the appropriate electrolytes in replacement. PAST MEDICAL HISTORY: Includes schizophrenia, dementia, anxiety, atrial fibrillation, locally advanced small cell lung cancer, chronic obstructive pulmonary disease, hyperlipidemia, hypertension, sick sinus syndrome and syncope. PAST SURGICAL HISTORY: Includes status post biventricular cardiac pacemaker, tonsillectomy and appendectomy. MEDICATIONS: Include Alvesco 2 puffs inhaled b.i.d., senna 2 tablets p.o. daily, Spiriva inhaler 1 capsule inhaled q.a.m., atorvastatin 20 mg p.o. at bedtime, benztropine 1 mg p.o. q.a.m., haloperidol 2 mg p.o. b.i.d., hydroxyzine 25 mg p.o. b.i.d., Xopenex 2 inhalations q.i.d. p.r.n., montelukast 10 mg p.o. daily, tamsulosin 0.4 mg p.o. at bedtime, Magic Swizzle 1 dose p.o. a.c. and at bedtime, doxycycline 100 mg p.o. b.i.d., omeprazole 40 mg p.o. daily, warfarin 2 mg. SOCIAL HISTORY: The patient is incarcerated. He was a [id number] smoker. Negative for alcohol or illicit substances. FAMILY HISTORY: Noncontributable. REVIEW OF SYSTEMS: Unobtainable because of his mental status. PHYSICAL EXAMINATION: GENERAL: Disheveled-appearing 75-year-old gentleman, awake and alert, but cannot answer questions readily. VITAL SIGNS: Temperature 36.8, pulse 78, respiratory rate 18, blood pressure 128/86. SKIN: Pale without rashes or lesions. HEENT: Atraumatic, normocephalic. Nares are patent without rhinorrhea or discharge. Throat, dentation in poor repair. No buccal lesions or ulcerations. HEART: Irregularly irregular. LUNGS: Clear to auscultation bilaterally. ABDOMEN: Soft, nontender, nondistended. EXTREMITIES: No clubbing, cyanosis or edema. NEUROLOGIC: Nonfocal. LABORATORY DATA: WBC count 830, hemoglobin 7.1, platelet count 65,000, neutrophils 111. PT 13.8 seconds, INR 1.4. Chemistries pending. RADIOGRAPHIC DATA: CTA of the chest negative for acute pulmonary embolism, interval decrease in size of right lower lobe pulmonary mass. Interval decrease in size of pathologic adenopathy. Slight interval increase in size of small right subscapular hepatic fluid collection. Interval development of a new 5 mm left lower pulmonary nodule. IMPRESSION: 1. Atrial fibrillation. 2. Hypomagnesemia. 3. Locally advanced small cell lung cancer. 4. Status post chemoradiation. 5. Fracture of the greater trochanter, left femur. 6. Schizophrenia. 7. Cytopenias attributable to chemotherapeutic effect. PLAN: I have been asked to visit with Quinn at bedside. This gentleman suffers from locally advanced small cell lung cancer, currently under [facility]'s management. He last visited with Sonia Vargas on 09/11. He had received his fourth and final cycle of cisplatin and etoposide. He also completed concurrent radiation therapy, receiving 7000 cGy in total. The electrolyte dysfunction is attributable to cisplatin. Replace as appropriate. It would appear that most of his issues are cardiac in nature. He is neutropenic, has received granulocyte colony-stimulating growth factor. Perhaps transfusion of 1-2 units of packed RBCs might be reasonable depending on his tolerance to volume. We will discuss further with Sonia Vargas regarding his care moving forward from an oncologic standpoint. CTA of the chest suggests he is indeed responding; however, there is a new left-sided nodule, which needs to be carefully watched. Agree with medical management otherwise. We will continue to periodically follow Mr. Nichols during his stay.
[2020-09-20] MEDS: METOPROLOL TARTRATE 50 MG TAB PO SCH ×2 (13:25→22:12)
[2020-09-20] MEDS: PANTOprazole 40 MG in SYRINGE 0 ML IV SCH ×2 (13:30→22:13)
--- NOTE | 2020-09-20 14:34 | Hospitalist Progress Note ---
Date of Service September 20, 2020 Assessment & Plan (1) Atrial fibrillation: EKG at [facility] with afib RVR with rates 120bpm, reported rates up to 160s. TSH was 1.1 this admission. - Cardizem gtt initiated by ER physician --> Stopped at present. - Switched to beta-dilip by cardiology. - Limited ECHO ordered -> Pending (2) Abdominal pain: Hx pancreatic lesion. Slight interval increase in the size of a small right subcapsular hepatic fluid collection on imaging on admission for CTA for PE (negative). - Hx of elevated Tbili but normal on admission - RUQ u/s on 09/20 showed no gallstones or biliary ductal dilatation. - No pain reported today. Monitor. (3) Small cell lung 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: Follows with Dr. Branham. Undergoing etoposide and cisplatin. Got 7000cGY XRT. - Discussed with Dr. Branham on 09/20; supportive care. (4) COPD (chronic obstructive pulmonary disease): 90% on RA. CXR without acute process. - Continue xopenex HFA, alvesco (non-formulary and will ask [facility] to bring in), motelukast 10mg daily, spiriva 1 puff daily (5) Fracture of greater trochanter of left femur: Hx of, Jul 2020. Conservative treatment at that time. No rehab d/t active XRT therapy. - Consider PT/OT (6) Pancreatic lesion: Known -- did not want follow up last admission. - Case reviewed by Galilea VELOZ without any immediate needs. (7) Schizophrenia: Pleasant affect today. - Continue benztropine 1mg daily, haloperidol 3mg BID, hydroxyzine 25mg HS (8) Neutropenia: Due to chemotherapy. - Neutropenic precautions (9) Anemia: Hgb low at 7.9, then decreased to 7.1. B12/folate normal. Iron indicates anemia of chronic disease. - No indication of bleeding. Likely due to bone marrow suppression from cancer & chemotherapy. - Monitor -> Improved to 9.9 on 09/20 which (10) BPH (benign prostatic hyperplasia): No report of LUTS. - Continue Flomax - Monitor UOP (11) DVT (deep venous thrombosis): UE DVT in left arm noted originally on 07/15/2020. - INR subtherapeutic at 1.3 today and has multiple other lows. - Oncology recommend DOAC given his labile INRs. Will convert once we feel he is not bleeding/anemia is stable and when platelets are stable & > 50k. Admission and Anticipated Discharge Date Admission Date: September 19, 2020 Subjective No complaints today. No report of shortness of breath, palpitations, lightheadedness. Reports no fevers/chills, chest pain, shortness of breath, abdominal pain, nausea, or vomiting. Physical Exam Constitutional: WD/WN, vitals as above Eyes: EOM intact bilaterally; no conjunctival abnormality ENMT: external ear and nose normal, oropharynx normal Neck: trachea midline, no thyromegaly normal visual inspection Respiratory: normal respiratory effort, lungs clear to auscultation no respiratory distress Cardiovascular: RRR, no murmur, no edema Gastrointestinal (Abdomen): Inspection/Auscultation: abdomen normal to inspection; abdomen not distended Musculoskeletal: no cyanosis or clubbing, extremities motor strength 5/5 Skin: no rashes, warm and dry Neurologic: moves all extremities and awake Psychiatric: Orientation: alert, oriented to person and cooperative Results & Data Results & Data ([facility]) Vital Signs (Past 12 Hours) Vital Signs Temp Pulse Pulse Resp BP BP Pulse Ox 09/20/20 12:05 36.8 C 115 H 22 144/82 H 96 09/20/20 08:53 36.8 C 99 H 20 139/89 94 09/20/20 06:22 36.8 C 78 18 120/86 98 09/20/20 05:26 36.5 C 124 H 18 131/67 95 09/20/20 04:26 36.9 C 89 16 124/82 95 09/20/20 03:56 36.8 C 90 16 112/69 98 09/20/20 03:41 36.8 C 104 H 18 120/81 93 09/20/20 03:23 36.9 C 105 H 16 103/69 92 PG Care Time/CCT Total # of Minutes Spent Total Time Spent with Patient: Total time spent is greater than 50% in coordination of care (as documented) at patient's floor/unit and/or counseling patient: Coding Level of Care Code 76636 Subseq Hosp Care Lvl 2 Diagnoses Atrial fibrillation I48.0 Atrial fibrillation type: paroxysmal Abdominal pain R10.9 Small cell lung 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 C34.90 COPD (chronic obstructive pulmonary disease) J44.9 Fracture of greater trochanter of left femur S72.112A Pancreatic lesion K86.9 Schizophrenia F20.9 Neutropenia D70.9 Anemia D64.9 BPH (benign prostatic hyperplasia) N40.0 DVT (deep venous thrombosis) I82.409 (1) Atrial fibrillation Atrial fibrillation type: paroxysmal Qualified Code(s): I48.0 - Paroxysmal atrial fibrillation
[2020-09-20] MEDS ORDERED: WARFARIN SOD 2 MG TAB PO SCH (16:00)
--- NOTE | 2020-09-20 16:10 | XCELERA ---
[id number]
--- NOTE | 2020-09-20 18:10 | Electrocardiogram Report ---
Test Reason : Blood Pressure : / mmHG Vent. Rate : 107 BPM Atrial Rate : 097 BPM P-R Int : 000 ms QRS Dur : 108 ms QT Int : 380 ms P-R-T Axes : 000 063 001 degrees QTc Int : 507 ms Atrial fibrillation with rapid ventricular response Low voltage QRS Abnormal ECG When compared with ECG of 19-SEP-2020 10:12, Minimal criteria for Anterior infarct are no longer Present ST no longer depressed in Inferior leads T wave inversion no longer evident in Inferior leads Confirmed by Jerardo Davies ([id number] on 09/20/2020 6:09:29 PM Referred By: REFERRED SELF Confirmed By:Jerardo Davies
[2020-09-20] MEDS: ATORVASTATIN 20 MG TAB PO SCH (22:11)
[2020-09-20] MEDS: TAMSULOSIN HCL 0.4 MG CAP PO SCH (22:13)
[2020-09-21] MEDS: LEVALBUTEROL TARTRATE 15 GM HFA.AER.AD INH PRN (07:02)
[2020-09-21 07:03] LABS: Hematocrit (blood only) 25.4 % (42-52); Hemoglobin 9.1 g/dL (14.0-18.0); Mean Corpuscular Hgb Conc 35.8 g/dL (32-36); Mean Corpuscular Volume 86.4 fL (80-100); RDW Coefficient of Variation 16.5 % (11.5-14.5); Red Blood Count 2.94 M/uL (4.7-6.1); White Blood Count 6.85 K/uL (4.8-10.8)
[2020-09-21 07:13] LABS: INR 1.8 (0.9-1.1); Prothrombin Time 17.3 Seconds (9.0-12.0)
[2020-09-21 07:17] LABS: Mean Platelet Volume 9.9 fL (7.4-10.4); Platelet Count 44 K/uL (130-400)
[2020-09-21 07:22] LABS: BUN Creatinine Ratio 13.5 (10-20); Creatinine Clr Calc Pharmacy 32.3 ml/min; Est GFR (African American) 36.4; Est GFR (Non-African American) 31.4; Magnesium 1.5 mg/dl (1.8-2.4); Potassium 3.5 mmol/L (3.5-5.1)
[2020-09-21 07:30] LABS: Basophils # (manual) 0.06 K/uL (0-0.2); Basophils % (manual) 0.9 %; Dohle Bodies 2+; Giant Platelets 1+; Lymphocytes % (manual) 8.7 %; Monocytes # (manual) 0.89 K/uL (0.11-0.59); Neutrophils % (manual) 77.4 %; Toxic Granulation 2+
[2020-09-21 07:34] LABS: Albumin Globulin Ratio 1.3 (0.9-2); Globulin 2.3 gm/dl (2.5-4.0); Phosphorus 1.6 mg/dl (2.5-4.9); Total Protein 5.3 gm/dl (6.4-8.2)
[2020-09-21] MEDS: hydrOXYzine HCl 25 MG TAB PO SCH ×2 (08:32→21:00)
[2020-09-21] MEDS: haloperidoL 1 MG TAB PO SCH ×2 (08:32→21:00)
[2020-09-21] MEDS: CALCIUM CARBONATE 1250MG TAB PO SCH (08:32)
[2020-09-21] MEDS: METOPROLOL TARTRATE 50 MG TAB PO SCH ×2 (08:32→21:01)
[2020-09-21] MEDS: FLUTICASONE FUROATE 200MCG 14 PUFFS/INHALER INH SCH (08:33)
[2020-09-21] MEDS: MONTELUKAST SODIUM 10 MG TABLET PO SCH (08:33)
[2020-09-21] MEDS: DOCUSATE SODIUM/SENNA 50/8.6MG TAB PO SCH (08:33)
[2020-09-21] MEDS: BENZTROPINE MESYLATE 1 MG TAB PO SCH (08:33)
[2020-09-21] MEDS: UMECLIDINIUM BROMIDE 62.5MCG/BLISTER 7 PUFFS/INHALER INH SCH (08:33)
[2020-09-21] MEDS: PANTOprazole 40 MG in SYRINGE 0 ML IV SCH (09:17)
--- NOTE | 2020-09-21 13:55 | Hospitalist Progress Note ---
Date of Service September 21, 2020 Assessment & Plan (1) Thrombocytopenia: Presumably due to chemotherapy. No indication of consumptive process and patient has no indication of bleeding. - Monitor (2) Atrial fibrillation: EKG at half-way with afib RVR with rates 120bpm, reported rates up to 160s. TSH was 1.1 this admission. - Cardizem gtt initiated by ER physician --> Stopped at present. - Switched to beta-dilip by cardiology. - Limited ECHO ordered -> Appears stable from 07/2020. - Presently with good rate control and even pacing at times. (3) Abdominal pain: Hx pancreatic lesion. Slight interval increase in the size of a small right subcapsular hepatic fluid collection on imaging on admission for CTA for PE (negative). - Hx of elevated Tbili but normal on admission - RUQ u/s on 09/20 showed no gallstones or biliary ductal dilatation. - No pain reported yesterday or today. Resolved. (4) Small cell lung 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: Follows with Dr. Branham. Undergoing etoposide and cisplatin. Got 7000cGY XRT. - Discussed with Dr. Branham on 09/20; supportive care. (5) COPD (chronic obstructive pulmonary disease): 90% on RA. CXR without acute process. - Continue xopenex HFA, alvesco (non-formulary and will ask half-way to bring in), motelukast 10mg daily, spiriva 1 puff daily (6) Fracture of greater trochanter of left femur: Hx of, Jul 2020. Conservative treatment at that time. No rehab d/t active XRT therapy. - Consider PT/OT (7) Pancreatic lesion: Known -- did not want follow up last admission. - Case reviewed by Galilea VELOZ without any immediate needs. (8) Schizophrenia: Pleasant affect today. - Continue benztropine 1mg daily, haloperidol 3mg BID, hydroxyzine 25mg HS (9) Neutropenia: Due to chemotherapy. - Neutropenic precautions (10) Anemia: Hgb low at 7.9, then decreased to 7.1. B12/folate normal. Iron indicates anemia of chronic disease. - No indication of bleeding. Likely due to bone marrow suppression from cancer & chemotherapy. - Monitor -> Improved to 9.9 on 09/20 which was a big jump. Stable on 09/21 at 9.1. (11) BPH (benign prostatic hyperplasia): No report of LUTS. - Continue Flomax - Monitor UOP (12) DVT (deep venous thrombosis): UE DVT in left arm noted originally on 07/15/2020. - INR subtherapeutic at 1.8 today and has multiple other lows. - Oncology recommend DOAC given his labile INRs. Will convert once we feel he is not bleeding/anemia is stable and when platelets are stable/increasing & > 50k. Admission and Anticipated Discharge Date Admission Date: September 19, 2020 Subjective Feels well today. No major issues. Reports no fevers/chills, chest pain, shortness of breath, abdominal pain, nausea, or vomiting. Physical Exam Constitutional: WD/WN, vitals as above Eyes: EOM intact bilaterally; no conjunctival abnormality ENMT: external ear and nose normal, oropharynx normal Neck: trachea midline, no thyromegaly normal visual inspection Respiratory: normal respiratory effort, lungs clear to auscultation no respiratory distress Cardiovascular: RRR, no murmur, no edema Gastrointestinal (Abdomen): Inspection/Auscultation: abdomen normal to inspection; abdomen not distended Musculoskeletal: no cyanosis or clubbing, extremities motor strength 5/5 Skin: no rashes, warm and dry Neurologic: moves all extremities and awake Psychiatric: Orientation: alert, oriented to person and cooperative Results & Data Results & Data ([facility]) Vital Signs (Past 12 Hours) Vital Signs Temp Pulse Resp BP Pulse Ox 09/21/20 08:01 36.6 C 76 18 129/74 94 09/21/20 07:03 71 20 98 09/21/20 04:26 37.2 C 82 20 94/58 L 96 PG Care Time/CCT Total # of Minutes Spent Total Time Spent with Patient: Total time spent is greater than 50% in coordination of care (as documented) at patient's floor/unit and/or counseling patient: Coding Level of Care Code 73947 Subseq Hosp Care Lvl 3 Diagnoses Thrombocytopenia D69.6 Atrial fibrillation I48.0 Atrial fibrillation type: paroxysmal Abdominal pain R10.9 Small cell lung 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 C34.90 COPD (chronic obstructive pulmonary disease) J44.9 Fracture of greater trochanter of left femur S72.112A Pancreatic lesion K86.9 Schizophrenia F20.9 Neutropenia D70.9 Anemia D64.9 BPH (benign prostatic hyperplasia) N40.0 DVT (deep venous thrombosis) I82.409 (1) Atrial fibrillation Atrial fibrillation type: paroxysmal Qualified Code(s): I48.0 - Paroxysmal atrial fibrillation
[2020-09-21] MEDS ORDERED: POTASSIUM PHOS 3 MMOL/1 ML INFUSION IV STA (14:09)
[2020-09-21] MEDS ORDERED: SODIUM CHLORIDE 0.9% 1000ML 500 ML IV ONE (14:09)
[2020-09-21] MEDS: MAGNESIUM SULFATE / D5W 1 GM/100 ML BAG IV SCH ×2 (14:43→17:37)
[2020-09-21] MEDS ORDERED: POTASSIUM PHOSPHATE 24 MMOL in SODIUM CHLORIDE 0.9% 500 ML IV ONE (14:45)
[2020-09-21] MEDS: ATORVASTATIN 20 MG TAB PO SCH (21:00)
[2020-09-21] MEDS: TAMSULOSIN HCL 0.4 MG CAP PO SCH (21:00)
[2020-09-22] MEDS: LEVALBUTEROL TARTRATE 15 GM HFA.AER.AD INH PRN (03:35)
--- NOTE | 2020-09-22 06:25 | Electrocardiogram Report ---
Test Reason : Blood Pressure : / mmHG Vent. Rate : 091 BPM Atrial Rate : 202 BPM P-R Int : 000 ms QRS Dur : 068 ms QT Int : 410 ms P-R-T Axes : 000 077 059 degrees QTc Int : 504 ms Suspect unspecified pacemaker failure Atrial fibrillation with occasional ventricular-paced complexes Low voltage QRS Nonspecific T wave abnormality Prolonged QT Abnormal ECG When compared with ECG of 20-SEP-2020 08:23, Ventricular pacing is now present Confirmed by Uriel Bose ([id number]) on 09/22/2020 6:24:50 AM Referred By: REFERRED SELF Confirmed By:Uriel Bose
[2020-09-22 06:46] LABS: Hematocrit (blood only) 24.4 % (42-52); Hemoglobin 8.6 g/dL (14.0-18.0); Mean Corpuscular Hgb Conc 35.2 g/dL (32-36); Mean Corpuscular Volume 88.1 fL (80-100); RDW Coefficient of Variation 16.6 % (11.5-14.5); RDW Standard Deviation 52.7 fL (36.4-46.3); Red Blood Count 2.77 M/uL (4.7-6.1); White Blood Count 11.32 K/uL (4.8-10.8)
[2020-09-22 06:54] LABS: Mean Platelet Volume 9.4 fL (7.4-10.4); Platelet Count 54 K/uL (130-400)
[2020-09-22 06:55] LABS: INR 1.6 (0.9-1.1); Prothrombin Time 16.1 Seconds (9.0-12.0)
[2020-09-22 07:00] LABS: BUN Creatinine Ratio 13.5 (10-20); Creatinine Clr Calc Pharmacy 33.7 ml/min; Est GFR (African American) 38.4; Est GFR (Non-African American) 33.2; Magnesium 1.6 mg/dl (1.8-2.4); Potassium 3.5 mmol/L (3.5-5.1)
[2020-09-22 07:05] LABS: Phosphorus 2.6 mg/dl (2.5-4.9)
[2020-09-22] MEDS: UMECLIDINIUM BROMIDE 62.5MCG/BLISTER 7 PUFFS/INHALER INH SCH (09:04)
[2020-09-22] MEDS: MONTELUKAST SODIUM 10 MG TABLET PO SCH (09:04)
[2020-09-22] MEDS: FLUTICASONE FUROATE 200MCG 14 PUFFS/INHALER INH SCH (09:04)
[2020-09-22] MEDS: METOPROLOL TARTRATE 50 MG TAB PO SCH ×2 (09:04→20:29)
[2020-09-22] MEDS: BENZTROPINE MESYLATE 1 MG TAB PO SCH (09:04)
[2020-09-22] MEDS: haloperidoL 1 MG TAB PO SCH ×2 (09:05→20:28)
[2020-09-22] MEDS: hydrOXYzine HCl 25 MG TAB PO SCH ×2 (09:05→20:29)
[2020-09-22] MEDS: DOCUSATE SODIUM/SENNA 50/8.6MG TAB PO SCH (09:06)
[2020-09-22] MEDS ORDERED: NORMOSOL-R 500 ML IV ONE (13:28)
--- NOTE | 2020-09-22 13:37 | Hospitalist Progress Note ---
Date of Service September 22, 2020 Assessment & Plan (1) Thrombocytopenia: Presumably due to chemotherapy. No indication of consumptive process and patient has no indication of bleeding. - Monitor - Improving today to 55. (2) Atrial fibrillation: EKG at intermediate with afib RVR with rates 120bpm, reported rates up to 160s. TSH was 1.1 this admission. - Cardizem gtt initiated by ER physician --> Stopped at present. - Switched to beta-dilip by cardiology. - Limited ECHO ordered -> Appears stable from 07/2020. - Presently with good rate control and even pacing at times. (3) Abdominal pain: Hx pancreatic lesion. Slight interval increase in the size of a small right subcapsular hepatic fluid collection on imaging on admission for CTA for PE (negative). - Hx of elevated Tbili but normal on admission - RUQ u/s on 09/20 showed no gallstones or biliary ductal dilatation. - No pain reported yesterday or today. Resolved. (4) Small cell lung 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: Follows with Dr. Branham. Undergoing etoposide and cisplatin. Got 7000cGY XRT. - Discussed with Dr. Branham on 09/20; supportive care. (5) COPD (chronic obstructive pulmonary disease): 90% on RA. CXR without acute process. - Continue Xopenex HFA, alvesco (non-formulary and will ask intermediate to bring in), motelukast 10mg daily, spiriva 1 puff daily (6) Fracture of greater trochanter of left femur: Hx of, Jul 2020. Conservative treatment at that time. No rehab d/t active XRT therapy. - Consider PT/OT (7) Pancreatic lesion: Known -- did not want follow up last admission. - Case reviewed by Galilea VELOZ without any immediate needs. (8) Schizophrenia: Pleasant affect today. - Continue benztropine 1mg daily, haloperidol 3mg BID, hydroxyzine 25mg HS (9) Neutropenia: Due to chemotherapy. - Neutropenic precautions -> Now not neutropenic at all. (10) Anemia: Hgb low at 7.9, then decreased to 7.1. B12/folate normal. Iron indicates anemia of chronic disease. - No indication of bleeding. Likely due to bone marrow suppression from cancer & chemotherapy. - Monitor -> Improved to 9.9 on 09/20 which was a big jump. Stable on 09/22 at 8.6. (11) BPH (benign prostatic hyperplasia): No report of LUTS. - Continue Flomax - Monitor UOP (12) DVT (deep venous thrombosis): UE DVT in left arm noted originally on 07/15/2020. - INR subtherapeutic at 1.6 today and has multiple other lows. - Oncology recommend DOAC given his labile INRs; however, I do not think DOACs available in intermediate. Admission and Anticipated Discharge Date Admission Date: September 19, 2020 Physical Exam Constitutional: WD/WN, vitals as above Eyes: EOM intact bilaterally; no conjunctival abnormality ENMT: external ear and nose normal, oropharynx normal Neck: trachea midline, no thyromegaly normal visual inspection Respiratory: normal respiratory effort, lungs clear to auscultation no respiratory distress Cardiovascular: RRR, no murmur, no edema Gastrointestinal (Abdomen): Inspection/Auscultation: abdomen normal to inspection; abdomen not distended Musculoskeletal: no cyanosis or clubbing, extremities motor strength 5/5 Skin: no rashes, warm and dry Neurologic: moves all extremities and awake Psychiatric: Orientation: alert, oriented to person and cooperative Results & Data Results & Data ([facility]) Vital Signs (Past 12 Hours) Vital Signs Temp Pulse Resp BP Pulse Ox 09/22/20 11:42 37.1 C 86 20 117/74 97 09/22/20 07:25 37.0 C 89 19 121/80 95 09/22/20 05:04 36.8 C 89 20 107/66 93 09/22/20 03:36 95 H 24 92 PG Care Time/CCT Total # of Minutes Spent Total Time Spent with Patient: Total time spent is greater than 50% in coordination of care (as documented) at patient's floor/unit and/or counseling patient: Coding Level of Care Code 09430 Subseq Hosp Care Lvl 2 Diagnoses Thrombocytopenia D69.6 Atrial fibrillation I48.0 Atrial fibrillation type: paroxysmal Abdominal pain R10.9 Small cell lung 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 C34.90 COPD (chronic obstructive pulmonary disease) J44.9 Fracture of greater trochanter of left femur S72.112A Pancreatic lesion K86.9 Schizophrenia F20.9 Neutropenia D70.9 Anemia D64.9 BPH (benign prostatic hyperplasia) N40.0 DVT (deep venous thrombosis) I82.409 (1) Atrial fibrillation Atrial fibrillation type: paroxysmal Qualified Code(s): I48.0 - Paroxysmal atrial fibrillation
[2020-09-22] MEDS: MAGNESIUM SULFATE / D5W 1 GM/100 ML BAG IV SCH ×2 (15:10→17:44)
[2020-09-22] MEDS: ATORVASTATIN 20 MG TAB PO SCH (20:28)
[2020-09-22] MEDS: TAMSULOSIN HCL 0.4 MG CAP PO SCH (20:28)
[2020-09-23 06:24] LABS: Hematocrit (blood only) 24.4 % (42-52); Hemoglobin 8.6 g/dL (14.0-18.0); Mean Corpuscular Hemoglobin 31.5 pg (25-34); Mean Corpuscular Hgb Conc 35.2 g/dL (32-36); Mean Corpuscular Volume 89.4 fL (80-100); RDW Coefficient of Variation 16.6 % (11.5-14.5); RDW Standard Deviation 52.6 fL (36.4-46.3); Red Blood Count 2.73 M/uL (4.7-6.1); White Blood Count 12.73 K/uL (4.8-10.8)
[2020-09-23 06:30] LABS: Mean Platelet Volume 10.4 fL (7.4-10.4); Platelet Count 72 K/uL (130-400)
[2020-09-23 06:55] LABS: BUN Creatinine Ratio 12.2 (10-20); Creatinine Clr Calc Pharmacy 32.7 ml/min; Magnesium 1.7 mg/dl (1.8-2.4); Potassium 3.2 mmol/L (3.5-5.1)
[2020-09-23] MEDS ORDERED: METOPROLOL SUCC 50MG EXT REL TAB PO STA (06:59)
[2020-09-23] MEDS: MONTELUKAST SODIUM 10 MG TABLET PO SCH (08:35)
[2020-09-23] MEDS: haloperidoL 1 MG TAB PO SCH ×2 (08:35→21:53)
[2020-09-23] MEDS: hydrOXYzine HCl 25 MG TAB PO SCH ×2 (08:36→21:53)
[2020-09-23] MEDS: BENZTROPINE MESYLATE 1 MG TAB PO SCH (08:36)
[2020-09-23] MEDS: DOCUSATE SODIUM/SENNA 50/8.6MG TAB PO SCH (08:36)
[2020-09-23] MEDS: FLUTICASONE FUROATE 200MCG 14 PUFFS/INHALER INH SCH (08:38)
[2020-09-23] MEDS: UMECLIDINIUM BROMIDE 62.5MCG/BLISTER 7 PUFFS/INHALER INH SCH (08:39)
[2020-09-23] MEDS: LEVALBUTEROL TARTRATE 15 GM HFA.AER.AD INH PRN (11:26)
--- NOTE | 2020-09-23 14:31 | Ultrasound Report ---
RENAL ULTRASOUND CLINICAL HISTORY: Acute kidney injury. COMPARISON STUDY: CT of the abdomen and pelvis July 11, 2020. Right upper quadrant ultrasound Feb ruary 2020. TECHNIQUE: Sonography of the kidneys and the urinary bladder was performed. FINDINGS: The right kidney measures 11 cm in maximal sagittal dimension. The left measures 10.9 cm. T here is no hydronephrosis. The kidneys are slightly echogenic. Renal size and cortical thickness are normal. No renal mass or calculus is identified by sonography. The left ureteral jet was not visualiz ed. Bladder is otherwise unremarkable. IMPRESSION: No hydronephrosis. ACT 112: Negative or not required by law. Electronically signed by: Bakari Trevino M.D. 09/23/2020 2:29 PM
--- NOTE | 2020-09-23 14:42 | Hospitalist Progress Note ---
Date of Service September 23, 2020 Assessment & Plan (1) Acute kidney failure: Baseline Cr is ~1.0, eGFR 75, CKD Stage II. - On admission, had STACI that I treated as pre-renal. Given multiple small IV fluid boluses with intention to avoid standing fluids and possible hypervolemia. - However, increase in Cr, and now no improvement in last 3 days. - Renal u/s ordered on 09/23 without any hydronephrosis noted. - UA on 09/23 without evidence of infection. Urine lytes pending. - Nephrology consulted (2) Thrombocytopenia: Due to chemotherapy. No indication of consumptive process and patient has no indication of bleeding. - Monitor - Improving today to 72. (3) Atrial fibrillation: EKG at alf with afib RVR with rates 120bpm, reported rates up to 160s. TSH was 1.1 this admission. - Cardizem gtt initiated by ER physician --> Stopped at present. - Switched to beta-dilip by cardiology. - Limited ECHO ordered -> Appears stable from 07/2020. - Presently with good rate control and even pacing at times. - Anticoagulation via warfarin - INR presently low, but had been HOLDING warfarin for low platelets. Will restart on 09/23. (4) Abdominal pain: Hx pancreatic lesion. Slight interval increase in the size of a small right subcapsular hepatic fluid collection on imaging on admission for CTA for PE (negative). - Hx of elevated Tbili but normal on admission - RUQ u/s on 09/20 showed no gallstones or biliary ductal dilatation. - No pain reported in last 3 days. Resolved. (5) Small cell lung 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: Follows with Dr. Branham. Undergoing etoposide and cisplatin. Got 7000cGY XRT. - Discussed with Dr. Branham on 09/20; supportive care. (6) COPD (chronic obstructive pulmonary disease): 90% on RA. CXR without acute process. - Continue Xopenex HFA, montelukast 10mg daily, Spiriva 1 puff daily (switched to Incruse per formulary) (7) Fracture of greater trochanter of left femur: Hx of, Jul 2020. Conservative treatment at that time. No rehab d/t active XRT therapy. - Consider PT/OT (8) Pancreatic lesion: Known -- did not want follow up last admission. - Case reviewed by Galilea VELOZ without any immediate needs. (9) Schizophrenia: Pleasant affect today. - Continue benztropine 1mg daily, haloperidol 3mg BID, hydroxyzine 25mg BID (10) Neutropenia: Due to chemotherapy. - Neutropenic precautions -> Now not neutropenic at all. (11) Anemia: Hgb low at 7.9, then decreased to 7.1. B12/folate normal. Iron indicates anemia of chronic disease. - No indication of bleeding. Likely due to bone marrow suppression from cancer & chemotherapy. - Monitor -> Improved to 9.9 on 09/20 which was a big jump. Stable on 09/23 at 8.6. (12) BPH (benign prostatic hyperplasia): No report of LUTS. - Continue Flomax - Monitor UOP (13) DVT (deep venous thrombosis): UE DVT in left arm noted originally on 07/15/2020. - INR subtherapeutic at 1.6 today and has multiple other lows. - Oncology recommend DOAC given his labile INRs; however, I do not think DOACs available in alf. - Restart warfarin on 09/23 now that platelets are rebounding. Admission and Anticipated Discharge Date Admission Date: September 19, 2020 Subjective Doing well today. He reports he is weak, but otherwise is in good spirits. Reports no fevers/chills, chest pain, shortness of breath, abdominal pain, nausea, or vomiting. Physical Exam Constitutional: WD/WN, vitals as above Eyes: EOM intact bilaterally; no conjunctival abnormality ENMT: external ear and nose normal, oropharynx normal Neck: trachea midline, no thyromegaly normal visual inspection Respiratory: normal respiratory effort, lungs clear to auscultation no respiratory distress Cardiovascular: RRR, no murmur, no edema Gastrointestinal (Abdomen): Inspection/Auscultation: abdomen normal to inspection; abdomen not distended Musculoskeletal: no cyanosis or clubbing, extremities motor strength 5/5 Skin: no rashes, warm and dry Neurologic: moves all extremities and awake Psychiatric: Orientation: alert, oriented to person and cooperative Results & Data Results & Data ([facility]) Vital Signs (Past 12 Hours) Vital Signs Temp Pulse Resp BP Pulse Ox 09/23/20 11:28 80 18 92 09/23/20 07:31 36.7 C 86 18 127/80 91 PG Care Time/CCT Total # of Minutes Spent Total Time Spent with Patient: Total time spent is greater than 50% in coordination of care (as documented) at patient's floor/unit and/or counseling patient: Coding Level of Care Code 97720 Subseq Hosp Care Lvl 3 Diagnoses Acute kidney failure N17.9 Thrombocytopenia D69.6 Atrial fibrillation I48.0 Atrial fibrillation type: paroxysmal Abdominal pain R10.9 Small cell lung 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 C34.90 COPD (chronic obstructive pulmonary disease) J44.9 Fracture of greater trochanter of left femur S72.112A Pancreatic lesion K86.9 Schizophrenia F20.9 Neutropenia D70.9 Anemia D64.9 BPH (benign prostatic hyperplasia) N40.0 DVT (deep venous thrombosis) I82.409 (1) Atrial fibrillation Atrial fibrillation type: paroxysmal Qualified Code(s): I48.0 - Paroxysmal atrial fibrillation
[2020-09-23 14:45] LABS: Appearance Urine Clear (Clear); Bacteria Urine Automated Negative (Negative); Bilirubin Urine Negative (Negative); Blood Urine 1+ (Negative); Color Urine Yellow; Glucose Urine UA Negative (Negative); Ketones Urine Negative (Negative); Leukocyte Esterase Urine Negative (Negative); Nitrite Urine Negative (Negative); Protein Urine Negative (Negative); Specific Gravity Urine 1.013 (1.000-1.030); Urobilinogen Urine Negative (Negative); pH Urine 5.5 (4.5-7.5)
[2020-09-23] MEDS: MAGNESIUM SULFATE / D5W 1 GM/100 ML BAG IV SCH ×2 (15:35→17:09)
[2020-09-23] MEDS ORDERED: WARFARIN SOD 2 MG TAB PO SCH (16:00)
[2020-09-23] MEDS: POTASSIUM CHLORIDE 10 MEQ TABCR PO SCH ×2 (17:10→21:54)
--- NOTE | 2020-09-23 19:03 | Nephrology Consultation ---
Date of Consultation September 23, 2020 Assessment & Plan (1) Acute kidney failure: Clinically consistent with ATN. Risk factors include acute on chronic anemia, rapid atrial fibrillation, iodinated contrast with CTA, and recent cisplatin exposure. Non-oliguric. Volume status acceptable with early evidence of fluid retention. IVF stopped. Electrolytes acceptable. BP low but acceptable. Blood counts have improved with supportive care. UA/microscopy demonstrating microscopic hematuria without proteinuria or WBC's. Renal US did not demonstrate obstruction. Medications are currently appropriate for kidney function. Cytopenias attributed to chemotherapy. No concerning findings of TMA. Kidney function stable and clinical presentation is not consistent with AIN. Document I/O's. Repeat renal profile in the AM. History of Present Illness Reason for Consultation: STACI Requesting Physician: Prashanth Raya MD Attending Physician: Prashanth Raya MD History of Present Illness Mr. Quinn Nichols is a 75-year-old male with COPD, SCLCA receiving treatment with etoposide + cisplatin, atrial fibrillation with SSS, schizophrenia, BPH, and a baseline creatinine of 1.1 mg/dL. Medical history also notable for LUE DVT and a non-displaced greater trochanter fracture secondary to a fall in July. There is a concerning pancreatic lesion which has not been fully evaluated. Quinn presented to [facility] on 09/19 with atrial fibrillation with RVR and symptomatic anemia. Serum creatinine 1.6 mg/dL on admission. Creatinine increased to 2.0 mg/dL on hospital day #2. Nephrology consultation requested regarding persistent STACI. Quinn is non-oliguric. He reported constipation but denied other complaints this evening. Anemia treated with PRBC transfusion support and Neulasta. Urine studies demonstrate microscopic hematuria with a few RBC's. BP stable. Electrolytes normal. Quinn is drinking plenty of fluids. Positive fluid balance maintained with additional Normosol infusion which has since been stopped. Allergies Allergy/AdvReac Type Severity Reaction Status Date / Time No Known Allergies Allergy Verified 09/19/20 10:13 Home Medications Medication Instructions Recorded Confirmed Type Alvesco 2 puff INHALATION BID 05/09/20 09/19/20 History Senna Plus 2 tab-cap PO QAM 05/09/20 09/19/20 History Spiriva with HandiHaler 1 cap INHALATION QAM 05/09/20 09/19/20 History atorvastatin 20 mg PO HS 05/09/20 09/19/20 History benztropine 1 mg PO QAM 05/09/20 09/19/20 History haloperidol 1 mg PO BID 05/09/20 09/19/20 History haloperidol 2 mg PO BID 05/09/20 09/19/20 History hydroxyzine HCl 25 mg PO BID 05/09/20 09/19/20 History levalbuterol tartrate [Xopenex HFA] 2 inh INHALATION QID PRN 05/09/20 09/19/20 History montelukast 10 mg PO QAM 05/09/20 09/19/20 History tamsulosin 0.4 mg PO HS 05/09/20 09/19/20 History Magic Swizzle 1 dose PO ACHS 09/19/20 09/19/20 History doxycycline hyclate 100 mg PO BID 09/19/20 09/19/20 History omeprazole 40 mg PO QAM 09/19/20 09/19/20 History warfarin 2 mg PO QAM 09/19/20 09/19/20 History Patient History Medical History Anxiety Atrial fibrillation ANTICOAGULATED WITH COUMADIN Chronic obstructive pulmonary disease CKD (chronic kidney disease) stage 2, GFR 60-89 ml/min Hyperlipidemia Hypertension Inmate in correctional facility Nocturia Phlebitis DEEP LOWER EXTREMITY. Pulmonary mass Shortness of breath Sick sinus syndrome s/p insertion of PPM 06/02/16 Syncope Implantation of dual-chamber Medtronic pacemaker 06/02/2016 Surgical History History of appendectomy History of tonsillectomy Status post biventricular cardiac pacemaker insertion 2015. Has followed with Dr. Calle. Social History Age Started Using Tobacco: 11; Age Quit Using Tobacco: 55; packs per day: 1; Years Smoked: 44; Cigarettes Per Day: 20; Number of Years Since Quit: 20; Second Hand Exposure: No; Do You Dip or Chew Tobacco: No; Hx Alcohol Use: No Hx Substance Use: No Preferred Language: Italian Communication Ability: Effective Visual Impairment: No Limitations Hearing Ability: Normal Dosier Operator Required: No Beliefs That Will Affect Care: None marital status: Single Current Living Situation: Other Current Living Situation Comment: [facility] Bolanos current occupational status: unemployed Other Information That Helps Us Care for You: No Feels Safe at Home: Yes Safety Concerns: Feels Safe At This Time caffeine: No during the past year weight has: remained stable Dental Care, Regularly: No Seatbelt Use: always Sunscreen Use: No Assistive Devices: None Review of Systems Review of Systems: All systems reviewed & are unremarkable except as noted in HPI & below Constitutional: no weight loss, no weight gain and no problem reported Eyes: no problem reported Ear, Nose, Mouth, Throat: no problem reported Respiratory: no problem reported Cardiovascular: no problem reported Gastrointestinal: no problem reported Musculoskeletal: no problem reported Integumentary: no problem reported Neurologic: no problem reported Psychiatric: no problem reported Endocrine: no problem reported Hematologic / Lymphatic: no problem reported Physical Exam Constitutional: well developed; no acute distress Eyes: no scleral abnormality and no corneal abnormality ENMT: Mouth: no oral mucosal abnormality and oral mucous membranes not dry Neck: normal visual inspection and trachea midline Respiratory: normal respiratory effort Auscultation: lungs clear to auscultation bilaterally Cardiovascular: Rate/Rhythm: regular rate Heart Sounds: normal S1 and normal S2 Extremities: no edema Musculoskeletal: Extremities: no cyanosis and no clubbing Skin: normal turgor; no lesions Neurologic: Motor/Sensory: no tremor and no asterixis Psychiatric: Orientation: alert and oriented x 3 Results & Data ([facility]) Vital Signs (Past 12 Hours) Vital Signs Temp Pulse Resp BP BP Pulse Ox 09/23/20 15:26 36.7 C 85 18 105/66 94 09/23/20 11:28 80 18 92 09/23/20 07:31 36.7 C 86 18 127/80 91 Laboratory Results Laboratory Results - last 24 hr 09/23/20 09/23/20 09/23/20 06:03 06:03 14:29 WBC 12.73 H RBC 2.73 L Hgb 8.6 L Hct 24.4 L MCV 89.4 MCH 31.5 MCHC 35.2 RDW Std Deviation 52.6 H RDW Coeff of Ivis 16.6 H Plt Count 72 L MPV 10.4 Sodium 139 Potassium 3.2 L Chloride 103 Carbon Dioxide 26 Anion Gap 9.0 BUN 25 H Creatinine 2.01 H Est Cr Clr Drug Dosing 32.7 Est GFR ( Amer) 37.0 Est GFR (Non-Af Amer) 32.0 BUN/Creatinine Ratio 12.2 Glucose 101 H Calcium 8.0 L Magnesium 1.7 L Urine Color Yellow Urine Appearance Clear Urine pH 5.5 Ur Specific [place] 1.013 Urine Protein Negative Urine Glucose (UA) Negative Urine Ketones Negative Urine Blood 1+ H Urine Nitrite Negative Urine Bilirubin Negative Urine Urobilinogen Negative Ur Leukocyte Esterase Negative Urine WBC (Auto) 1-5 Urine RBC (Auto) 5-10 H U Hyaline Cast (Auto) 1-5 U Epithel Cells (Auto) 5-10 H Urine Bacteria (Auto) Negative Ur Random Creatinine Ur Random Sodium 09/23/20 14:29 WBC RBC Hgb Hct MCV MCH MCHC RDW Std Deviation RDW Coeff of Ivis Plt Count MPV Sodium Potassium Chloride Carbon Dioxide Anion Gap BUN Creatinine Est Cr Clr Drug Dosing Est GFR ( Amer) Est GFR (Non-Af Amer) BUN/Creatinine Ratio Glucose Calcium Magnesium Urine Color Urine Appearance Urine pH Ur Specific [place] Urine Protein Urine Glucose (UA) Urine Ketones Urine Blood Urine Nitrite Urine Bilirubin Urine Urobilinogen Ur Leukocyte Esterase Urine WBC (Auto) Urine RBC (Auto) U Hyaline Cast (Auto) U Epithel Cells (Auto) Urine Bacteria (Auto) Ur Random Creatinine 109.0 Ur Random Sodium 55 PG Care Time/CCT Total # of Minutes Spent Total Time Spent with Patient: Total time spent is greater than 50% in coordination of care (as documented) at patient's floor/unit and/or counseling patient: Coding Level of Care Code 63469 Inpt Consult Level 4 Diagnoses Acute kidney failure N17.9
[2020-09-23] MEDS: ATORVASTATIN 20 MG TAB PO SCH (21:53)
[2020-09-23 21:56] VITALS: O2SAT 91
[2020-09-23] MEDS: TAMSULOSIN HCL 0.4 MG CAP PO SCH (22:08)
[2020-09-24 07:00] VITALS: PULSE 89; TEMP 98.1
[2020-09-24] MEDS: FLUTICASONE FUROATE 200MCG 14 PUFFS/INHALER INH SCH (07:19)
[2020-09-24] MEDS: UMECLIDINIUM BROMIDE 62.5MCG/BLISTER 7 PUFFS/INHALER INH SCH (07:19)
[2020-09-24] MEDS: DOCUSATE SODIUM/SENNA 50/8.6MG TAB PO SCH (07:54)
[2020-09-24] MEDS: hydrOXYzine HCl 25 MG TAB PO SCH (07:55)
[2020-09-24 07:58] LABS: Hematocrit (blood only) 25.5 % (42-52); Hemoglobin 9.1 g/dL (14.0-18.0); Mean Corpuscular Hemoglobin 31.5 pg (25-34); Mean Corpuscular Hgb Conc 35.7 g/dL (32-36); Mean Corpuscular Volume 88.2 fL (80-100); RDW Coefficient of Variation 16.8 % (11.5-14.5); RDW Standard Deviation 51.8 fL (36.4-46.3); Red Blood Count 2.89 M/uL (4.7-6.1); White Blood Count 14.61 K/uL (4.8-10.8)
[2020-09-24 08:02] LABS: Mean Platelet Volume 8.9 fL (7.4-10.4); Platelet Count 89 K/uL (130-400)
[2020-09-24 08:06] LABS: INR 1.3 (0.9-1.1); Prothrombin Time 12.9 Seconds (9.0-12.0)
[2020-09-24 08:23] LABS: BUN Creatinine Ratio 12.3 (10-20); Calcium 8.3 mg/dl (8.5-10.1); Creatinine Clr Calc Pharmacy 38.3 ml/min; Est GFR (African American) 44.7; Est GFR (Non-African American) 38.6; Magnesium 1.5 mg/dl (1.8-2.4); Phosphorus 2.7 mg/dl (2.5-4.9); Potassium 3.3 mmol/L (3.5-5.1)
[2020-09-24] MEDS: haloperidoL 1 MG TAB PO SCH (08:34)
[2020-09-24] MEDS: MONTELUKAST SODIUM 10 MG TABLET PO SCH (08:35)
[2020-09-24] MEDS: BENZTROPINE MESYLATE 1 MG TAB PO SCH (08:36)
--- NOTE | 2020-09-24 12:10 | Nephrology Progress Note ---
Date of Service September 24, 2020 Assessment & Plan (1) Acute kidney failure: Clinically consistent with ATN. Risk factors include acute on chronic anemia, rapid atrial fibrillation, iodinated contrast with CTA, and recent cisplatin exposure. Non-oliguric. Volume status acceptable with early evidence of fluid retention. IVF stopped. Electrolytes acceptable. BP normotensive this AM. Blood counts have improved with supportive care. UA/microscopy demonstrating microscopic hematuria without proteinuria or WBC's. Renal US did not demonstrate obstruction. Medications are currently appropriate for kidney function. Cytopenias attributed to chemotherapy. No concerning findings of TMA. Kidney function stable and clinical presentation is not consistent with AIN. Monitor metabolic profile every few days during renal recovery. Avoid NSAIDS and other potentially nephrotoxic medications. For hypokalemia, 20 mEq KCL provided PO. For hypomagnesemia, MgOX 800 mg daily ordered. Admission and Anticipated Discharge Date Admission Date: September 19, 2020 Subjective No acute events overnight. Quinn feels well today. No complaints or concerns. Review of Systems Review of Systems: All systems reviewed & are unremarkable except as noted in HPI & below Physical Exam Constitutional: well developed; no acute distress Eyes: no scleral abnormality and no corneal abnormality ENMT: Mouth: no oral mucosal abnormality and oral mucous membranes not dry Neck: normal visual inspection and trachea midline Respiratory: normal respiratory effort Auscultation: lungs clear to aus cultation bilaterally Cardiovascular: Rate/Rhythm: regular rate Heart Sounds: normal S1 and normal S2 Extremities: no edema Musculoskeletal: Extremities: no cyanosis and no clubbing Skin: normal turgor; no lesions Neurologic: Motor/Sensory: no tremor and no asterixis Psychiatric: Orientation: alert and oriented x 3 Results & Data ([facility]) Vital Signs (Past 12 Hours) Vital Signs Temp Pulse Resp BP Pulse Ox 09/24/20 06:58 36.7 C 89 16 137/87 91 Laboratory Results Laboratory Results - last 24 hr 09/23/20 09/23/20 09/24/20 14:29 14:29 07:44 WBC 14.61 H RBC 2.89 L Hgb 9.1 L Hct 25.5 L MCV 88.2 MCH 31.5 MCHC 35.7 RDW Std Deviation 51.8 H RDW Coeff of Ivis 16.8 H Plt Count 89 L MPV 8.9 PT INR Sodium Potassium Chloride Carbon Dioxide Anion Gap BUN Creatinine Est Cr Clr Drug Dosing Est GFR ( Amer) Est GFR (Non-Af Amer) BUN/Creatinine Ratio Glucose Calcium Phosphorus Magnesium Urine Color Yellow Urine Appearance Clear Urine pH 5.5 Ur Specific Steedman 1.013 Urine Protein Negative Urine Glucose (UA) Negative Urine Ketones Negative Urine Blood 1+ H Urine Nitrite Negative Urine Bilirubin Negative Urine Urobilinogen Negative Ur Leukocyte Esterase Negative Urine WBC (Auto) 1-5 Urine RBC (Auto) 5-10 H U Hyaline Cast (Auto) 1-5 U Epithel Cells (Auto) 5-10 H Urine Bacteria (Auto) Negative Ur Random Creatinine 109.0 Ur Random Sodium 55 09/24/20 09/24/20 07:44 07:44 WBC RBC Hgb Hct MCV MCH MCHC RDW Std Deviation RDW Coeff of Ivis Plt Count MPV PT 12.9 H INR 1.3 H Sodium 138 Potassium 3.3 L Chloride 103 Carbon Dioxide 27 Anion Gap 8.0 BUN 21 H Creatinine 1.72 H Est Cr Clr Drug Dosing 38.3 Est GFR ( Amer) 44.7 Est GFR (Non-Af Amer) 38.6 BUN/Creatinine Ratio 12.3 Glucose 96 Calcium 8.3 L Phosphorus 2.7 Magnesium 1.5 L Urine Color Urine Appearance Urine pH Ur Specific Steedman Urine Protein Urine Glucose (UA) Urine Ketones Urine Blood Urine Nitrite Urine Bilirubin Urine Urobilinogen Ur Leukocyte Esterase Urine WBC (Auto) Urine RBC (Auto) U Hyaline Cast (Auto) U Epithel Cells (Auto) Urine Bacteria (Auto) Ur Random Creatinine Ur Random Sodium PG Care Time/CCT Total # of Minutes Spent Total Time Spent with Patient: Total time spent is greater than 50% in coordination of care (as documented) at patient's floor/unit and/or counseling patient: Coding Level of Care Code 16055 Subseq Hosp Care Lvl 3 Diagnoses Acute kidney failure N17.9
--- NOTE | 2020-09-24 12:31 | Discharge Summary ---
Date of Service September 24, 2020 Admission HPI Per Admitting Provider 75 year old male with PMHx significant for small cell lung ca (on chemo/XRT), recent fall w/ left non-displaced greater trochanteric fracture managed conservatively Jul 2020, COPD, Atrial fibrillation, BPH, Schizophrenia, HLD, pancreatic lesion, left upper extremity DVT on coumadin and presented to the emergency department for concerns of possible exposure to coronavirus and abnormal EKG which showed atrial fibrillation with rvr with rate 120bpm but reported rates up to 160s. Recently reduced propranolol due to low HR by snf and has a history of afib for years. Denies any palpitations, racing heart. Does have occasional shortness of breath but states this is mostly with exertion. No chest pain, fever, chills, abdominal pain, nausea, vomiting or change in bowels, hematuria. In ER was found to be hypomagnesemic with mag 0.8, hypokalemia, neutropenic (just got chemo), with atrial fibrillation with RVR. CBC with WBC 0.63k, h/h 7.9/22.2, platelets 70. INR 1.4, PTT 13.8 Creatinine elevated to 1.61 BNP 5220 (prior 10k) CXR without acute process, emphysema noted. Known R hilar lymphadenopathy and RLL mass not well visualize and likely decreased in size. CTA without acute PE. Interval decrease in size of RLL mass, interval decrease in size of pathologic adenopathy, pulm emphysema, slight increase in size of small right subcapsular hepatic fluid collection, interval development of new 5mm LLL pulmonary nodule (attention to nodule recommended on f/u imaging). Receiving IV mag now. 129mcg Lovenox SQ Started on Cardizem gtt for afib RVR with rates to 120s. Principal Diagnosis Pancytopenia Discharge Exam Constitutional: WD/WN, vitals as above Eyes: EOM intact bilaterally; no conjunctival abnormality ENMT: external ear and nose normal, oropharynx normal Neck: trachea midline, no thyromegaly normal visual inspection Respiratory: normal respiratory effort, lungs clear to auscultation no respiratory distress Cardiovascular: RRR, no murmur, no edema Gastrointestinal (Abdomen): Inspection/Auscultation: abdomen normal to inspection; abdomen not distended Musculoskeletal: no cyanosis or clubbing, extremities motor strength 5/5 Skin: no rashes, warm and dry Neurologic: moves all extremities and awake Psychiatric: Orientation: alert, oriented to person and cooperative Discharge Data Allergies Allergy/AdvReac Type Severity Reaction Status Date / Time No Known Allergies Allergy Verified 09/19/20 10:13 Consultations 09/19/20 13:02 ED Decision to Admit Stat 09/19/20 17:05 Consult Cardiology Routine Consult Case Management - Discharge Planning Routine Consult Hematology Routine 09/19/20 19:53 Consult Gastroenterology Routine 09/23/20 10:37 Consult Nephrology Routine Ordered Studies 09/19/20 11:43 CT angio chest PE protocol Stat 09/20/20 14:28 US gallbladder Urgent 09/23/20 10:38 US renal/blad retro comp Routine Hospital Course (1) Acute kidney failure: Baseline Cr is ~1.0, eGFR 75, CKD Stage II. - On admission, had STACI that I treated as pre-renal. Given multiple small IV fluid boluses with intention to avoid standing fluids and possible hypervolemia. - However, increase in Cr, and now no improvement in last 3 days. - Renal u/s ordered on 09/23 without any hydronephrosis noted. - UA on 09/23 without evidence of infection. - Nephrology consulted. Renal function has stabilized. Will recommend electrolyte replacement for 1 more week and monitor levels of magnesium in 3 days and in 1 week. Gave verbal sign-out to Dr. Castro. (2) Thrombocytopenia: Due to chemotherapy. No indication of consumptive process and patient has no indication of bleeding. - Monitor - Improving today to 89 (3) Atrial fibrillation: EKG at snf with afib RVR with rates 120bpm, reported rates up to 160s. TSH was 1.1 this admission. - Cardizem gtt initiated by ER physician --> Stopped at present. - Switched to beta-dilip by cardiology. - Limited ECHO ordered -> Appears stable from 07/2020. - Presently with good rate control and even pacing at times. - Anticoagulation via warfarin - INR presently low, but had been HOLDING warfarin for low platelets. Will restart on 09/23. - INR should slowly get back to therapeutic range now that he is taking the medicine (4) Abdominal pain: Hx pancreatic lesion. Slight interval increase in the size of a small right subcapsular hepatic fluid collection on imaging on admission for CTA for PE (negative). - Hx of elevated Tbili but normal on admission - RUQ u/s on 09/20 showed no gallstones or biliary ductal dilatation. - No pain reported in last 4 days. Resolved. (5) Small cell lung 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: Follows with Dr. Branham. Undergoing etoposide and cisplatin. Got [id number] XRT. - Discussed with Dr. Branham on 09/20; supportive care. (6) COPD (chronic obstructive pulmonary disease): 90% on RA. CXR without acute process. - Continue Xopenex HFA, montelukast 10mg daily, Spiriva 1 puff daily (switched to Incruse per formulary) (7) Fracture of greater trochanter of left femur: Hx of, Jul 2020. Conservative treatment at that time. No rehab d/t active XRT therapy. - Consider PT/OT (8) Pancreatic lesion: Known -- did not want follow up last admission. - Case reviewed by Galilea VELOZ without any immediate needs. (9) Schizophrenia: Pleasant affect today. - Continue benztropine 1mg daily, haloperidol 3mg BID, hydroxyzine 25mg BID (10) Neutropenia: Due to chemotherapy. - Neutropenic precautions -> Now not neutropenic at all. (11) Anemia: Hgb low at 7.9, then decreased to 7.1. B12/folate normal. Iron indicates anemia of chronic disease. - No indication of bleeding. Likely due to bone marrow suppression from cancer & chemotherapy. - Monitor -> Improved to 9.9 on 09/20 which was a big jump. Stable on 09/24 at 9.1. (12) BPH (benign prostatic hyperplasia): No report of LUTS. - Continue Flomax - Monitor UOP (13) DVT (deep venous thrombosis): UE DVT in left arm noted originally on 07/15/2020. - INR subtherapeutic at 1.6 today and has multiple other lows. - Oncology recommend DOAC given his labile INRs; however, I do not think DOACs available in snf. - Restart warfarin on 09/23 now that platelets are rebounding. Total Time Total Time Spent Total Time Spent (In Minutes): 32 Total Time Includes: Examination of the Patient, Discharge Planning and Medication Reconciliation Discharge Plan Discharge Items [facility] Disposition: [facility] Reason For Visit: AFIB RVR Discharge Diagnosis: Atrial fibrillation with fast heart rate Pancytopenia from chemotherapy Activity: Resume your previous activity Non-emergency contact: Primary Care Provider and Oncologist Call non-emergency contact if: your symptoms worsen Follow-up/Referrals: Luis Miguel OLGUIN [Primary Care Provider] - Diet: Regular Addtl Attending Provider Instructions: Mr. Nichols was found to be in atrial fibrillation with RVR. This was due to changes in his home medications and stopping his beta-dilip. He was also found to have low counts due to his chemotherapy. Please check his INR sometime this week. His INR was slightly low here (1.6), but because of his low platelets, we were ok with that. However, on discharge, platelets were up to 89, so we should aim for a normal INR for him at this time due to his cancer, upper extremity DVT, and atrial fibrillation. Recommend checking potassium and magnesium in 1 week. Use potassium and magnesium supplements for 1 more week then stop. Pending Studies at Discharge: No Stand-Alone Forms: My [facility] Skilled Items Patient informed of condition?: Yes Discharge Level of Care: Other Communicable Disease: No Discharge Prognosis: Improving Lines: None Urinary Catheter: No Medications and DC Order Prescriptions: New metoprolol succinate 100 mg tablet extended release 24 hr 100 mg PO DAILY Qty: 10 RF: 0 magnesium oxide 400 mg (241.3 mg magnesium) Tablet 800 mg PO QAM Qty: 14 RF: 0 potassium chloride 10 mEq capsule, extended release 20 meq PO DAILY Qty: 14 RF: 0 Continued atorvastatin 20 mg Tablet 20 mg PO HS RF: 0 haloperidol 1 mg Tablet 1 mg PO BID RF: 0 tamsulosin 0.4 mg Capsule 0.4 mg PO HS RF: 0 benztropine 1 mg Tablet 1 mg PO QAM RF: 0 montelukast 10 mg Tablet 10 mg PO QAM RF: 0 hydroxyzine HCl 25 mg Tablet 25 mg PO BID RF: 0 haloperidol 2 mg Tablet 2 mg PO BID RF: 0 Spiriva with HandiHaler 18 mcg Capsule, W/Inhalation Device 1 cap INHALATION QAM RF: 0 levalbuterol tartrate [Xopenex HFA] 45 mcg/actuation Hfa Aerosol Inhaler 2 inh INHALATION QID PRN (Reason: Shortness Of Breath) RF: 0 Alvesco 80 mcg/actuation Hfa Aerosol Inhaler 2 puff INHALATION BID RF: 0 Senna Plus 8.6-50 mg Capsule 2 tab-cap PO QAM RF: 0 omeprazole 40 mg Capsule,Delayed Release(Dr/Ec) 40 mg PO QAM RF: 0 warfarin 2 mg Tablet 2 mg PO QAM RF: 0 Magic Swizzle 1 dose PO ACHS RF: 0 Discontinued doxycycline hyclate 100 mg Tablet 100 mg PO BID RF: 0 Discharge Orders: Discharge Order (Routine); Ordered 09/24/20 Ordered By: Lazaro Perez Admission Data Admit Date/Time: 09/19/20 14:49 Attending Provider: Lazaro Perez Admit Provider: Sonia Garcia Primary Care Provider: Luis Miguel OLGUIN Other Providers: Prashanth Raya ; David Chacko ; Ayo Isbell ; Kevin Branham V. ; Hal Charles ; Caio Rasmussen Coding Level of Care Code D/C Day Management >30 mins Diagnoses Acute kidney failure N17.9 Thrombocytopenia D69.6 Atrial fibrillation I48.0 Atrial fibrillation type: paroxysmal Abdominal pain R10.9 Small cell lung 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 C34.90 COPD (chronic obstructive pulmonary disease) J44.9 Fracture of greater trochanter of left femur S72.112A Pancreatic lesion K86.9 Schizophrenia F20.9 Neutropenia D70.9 Anemia D64.9 BPH (benign prostatic hyperplasia) N40.0 DVT (deep venous thrombosis) I82.409
[2020-09-24] MEDS ORDERED: POTASSIUM CHLORIDE CRTAB 20 MEQ TABCR PO ONE (13:00)
[2020-09-24] MEDS ORDERED: MAGNESIUM OXIDE 400 MG TAB PO SCH (13:00)
[2020-09-24 13:20] VITALS: BP 105/66
== END 2020-09-24 15:13 | DRG 308 ==
LOC: ED 10:03 → SUATTDRO 14:49 → 2S 14:49 → 3W 09-22 16:00

== ENCOUNTER 2020-09-30 00:08 | Inpatient (IN) ==
[2020-09-30 00:56] LABS: Basophils # (auto) 0.03 K/uL (0-0.2); Basophils % (auto) 0.2 %; Eosinophils # (auto) 0.04 K/uL (0-0.5); Eosinophils % (auto) 0.2 %; Hematocrit (blood only) 23.4 % (42-52); Immature Granulocytes # (auto) 0.11 K/uL (0.00-0.02); Immature Granulocytes % (auto) 0.7 %; Lymphocytes # (auto) 1.14 K/uL (1.2-3.4); Lymphocytes % (auto) 7.1 %; Mean Corpuscular Hemoglobin 31.5 pg (25-34); Mean Corpuscular Hgb Conc 34.2 g/dL (32-36); Mean Corpuscular Volume 92.1 fL (80-100); Mean Platelet Volume 8.7 fL (7.4-10.4); Monocytes # (auto) 0.62 K/uL (0.11-0.59); Monocytes % (auto) 3.9 %; Neutrophils # (auto) 14.11 K/uL (1.4-6.5); Neutrophils % (auto) 87.9 %; Platelet Count 321 K/uL (130-400); RDW Coefficient of Variation 17.4 % (11.5-14.5); RDW Standard Deviation 57.5 fL (36.4-46.3); Red Blood Count 2.54 M/uL (4.7-6.1); White Blood Count 16.05 K/uL (4.8-10.8)
[2020-09-30 01:12] LABS: Alanine Aminotransferase 16 U/L (12-78); Albumin Level 2.8 gm/dl (3.4-5.0); Aspartate Aminotransferase 7 U/L (15-37); BUN Creatinine Ratio 13.7 (10-20); Blood Urea Nitrogen 23 mg/dl (7-18); Calcium 7.7 mg/dl (8.5-10.1); Carbon Dioxide 28 mmol/L (21-32); Chloride 105 mmol/L (98-107); Creatinine Clr Calc Pharmacy 42.7 ml/min; Est GFR (African American) 45.4; Est GFR (Non-African American) 39.1; Glucose 150 mg/dl (70-99); Potassium 4.3 mmol/L (3.5-5.1); Sodium 141 mmol/L (136-145)
[2020-09-30 01:14] LABS: Partial Thromboplastin Ratio 1.5; Partial Thromboplastin Time 38.9 Seconds (21.0-31.0); Prothrombin Time 36.1 Seconds (9.0-12.0)
[2020-09-30 01:15] LABS: Alkaline Phosphatase 100 U/L (45-117); Bilirubin,Total 0.9 mg/dl (0.2-1); Globulin 2.7 gm/dl (2.5-4.0); Total Protein 5.5 gm/dl (6.4-8.2)
[2020-09-30 01:58] LABS: Magnesium 0.9 mg/dl (1.8-2.4); Troponin I < 0.015 ng/ml (0-0.045)
[2020-09-30] MEDS ORDERED: MAGNESIUM SULFATE / D5W 1 GM/100 ML BAG IV STA (02:00)
--- NOTE | 2020-09-30 02:12 | Emergency Department Note ---
Impression & Plan Pleural effusion on left, Hypomagnesemia, Anemia, Hemoptysis, Supratherapeutic INR ED Provider Note NAME: RHIANNA [id number] CRUTHERS AGE: 75 SEX: M ARRIVES VIA: Ambulance INFORMANT: Patient ED PROVIDER(S): Scarlet Mcneil DO CHIEF COMPLAINT: Hemoptysis and shortness of breath PLAN: Disposition: Admitted to the [facility] service Condition: Stable MEDICAL DECISION MAKING: This is a 75-year-old prisoner with a history of lung cancer who presents to the emergency department with hemoptysis and increasing shortness of breath. Chest x-ray shows evidence of a worsening left-sided pleural effusion. Despite being on outpatient Levaquin, the patient's white count has continued to rise. Patient requires being on 5 L of oxygen instead of 3. His INR has become supratherapeutic, he is now anemic and his magnesium remains low. I have discussed the case with the [facility] and they will evaluate for further management. Triage Nursing notes reviewed and agree with them. Prior medical records reviewed from his recent ER visit and recent admission Vital Signs: reviewed and unremarkable Differential diagnosis: Supratherapeutic INR; worsening pneumonia; pleural effusion; anemia ER treatment provided: IV magnesium Diagnostics interpreted by me: ECG: Atrial fibrillation at a rate of [address] segment elevation or signs o f ischemia; normal QTC; this EKG is compared to 1 from 09/27/2019 and there are no paced beats. Cardiac Monitoring: A. fib at a rate of 89 Laboratory studies: See below Imaging studies: As per my interpretation Chest x-ray: Worsening left-sided pleural effusion HPI: 75/M arrives for evaluation of shortness of breath and hemoptysis. Patient has had increasing shortness of breath over the past couple days but got significantly worse today. Patient had normally been on 3 L of supplemental O2 for some time but they had to increase it recently to 5 L. He became more concerned today when he coughed up blood. He quantify the blood is a couple of teaspoons. Patient does take Coumadin. Patient was diagnosed with lung cancer approximately 3 months ago. He is currently receiving radiation and chemotherapy. ROS: See above HPI for pertinent positives & negatives. A total of 10 systems reviewed and were otherwise negative. PAST MEDICAL HISTORY:See Below PAST SURGICAL HISTORY:See Below FAMILY HISTORY:See Below SOCIAL HISTORY:See Below HOME MEDICATIONS:See list ALLERGIES:None VITALS:See Below PHYSICAL EXAMINATION: HEENT: Head - normocephalic and atraumatic Pupils are equal, round, and reactive to light. Extraocular eye muscles are intact, and sclera are anicteric. Nose - moist nasal mucosa without discharge. Mouth - moist buccal mucosa. Oropharynx is nonerythematous and there is no tonsillar exudate or edema noted. Neck: Supple; no cervical lymphadenopathy Heart: Tachycardic rate and irregularly irregular rhythm there is a normal S1 and S2 with no murmurs, clicks, or gallops appreciated. Lungs: Absent breath sounds in the left lung base. With rales in the right lung base. Abdomen: Soft, completely nontender, nondistended, with good bowel sounds. There are no palpable pulsatile masses or hepatosplenomegaly. There is no guarding, rigidity, or rebound noted. Extremities: No evidence of cyanosis, clubbing, or edema. There are easily palpable peripheral pulses. Skin: Extremely pale, warm and dry with good turgor and no rashes. ED COURSE: Times/Reassessments: 0020: The patient was evaluated in room B3. A complete history and physical was performed. Previous electronic medical records were reviewed. Labs were drawn as above. An order was placed for continuous cardiac monitoring. Patient was in A. fib at a rate of 89. A portable chest x-ray was performed. A twelve-lead EKG was obtained. 0135: Patient was reevaluated at this time. I reviewed the results of the x-ray and laboratory studies with the patient. I explained that he would require admission to the hospital because of the failure on outpatient antibiotics and the worsening pleural effusion. I discussed the case with the [facility] hospitalist and they will evaluate for further management. Scarlet Mcneil DO Past Med/Surg History Medical History Anxiety Atrial fibrillation ANTICOAGULATED WITH COUMADIN Chronic obstructive pulmonary disease CKD (chronic kidney disease) stage 2, GFR 60-89 ml/min Hyperlipidemia Hypertension Inmate in correctional facility Nocturia Phlebitis DEEP LOWER EXTREMITY. Pulmonary mass Shortness of breath Sick sinus syndrome s/p insertion of PPM 06/02/16 Syncope Implantation of dual-chamber Medtronic pacemaker 06/02/2016 Surgical History History of appendectomy History of tonsillectomy Status post biventricular cardiac pacemaker insertion 2015. Has followed with Dr. Calle. Social History Smoking Status: Former smoker Tobacco Type: Cigarettes Age Started Using Tobacco: 11; Age Quit Using Tobacco: 55; packs per day: 1; Years Smoked: 44; Cigarettes Per Day: 20; Number of Years Since Quit: 20; Second Hand Exposure: No; Do You Dip or Chew Tobacco: No; Hx Alcohol Use: No Hx Substance Use: No Preferred Language: Iranian Communication Ability: Effective Visual Impairment: No Limitations Hearing Ability: Normal Smelter Operator Required: No Beliefs That Will Affect Care: None marital status: Single Current Living Situation: Other Current Living Situation Comment: CLAU Bolanos current occupational status: unemployed caffeine: No during the past year weight has: remained stable Dental Care, Regularly: No Seatbelt Use: always Sunscreen Use: No Assistive Devices: Oxygen - Continuous Allergies Allergies Allergy/AdvReac Type Severity Reaction Status Date / Time No Known Allergies Allergy Verified 09/30/20 01:37 Home Meds Home Medications Medication Instructions Recorded Confirmed Senna Plus 2 tab-cap PO QAM 05/09/20 09/30/20 Spiriva with HandiHaler 1 cap INHALATION QAM 05/09/20 09/30/20 atorvastatin 20 mg PO HS 05/09/20 09/30/20 benztropine 1 mg PO QAM 05/09/20 09/30/20 haloperidol 1 mg PO BID 05/09/20 09/30/20 haloperidol 2 mg PO BID 05/09/20 09/30/20 hydroxyzine HCl 25 mg PO BID 05/09/20 09/30/20 levalbuterol tartrate [Xopenex HFA] 2 inh INHALATION QID PRN 05/09/20 09/30/20 montelukast 10 mg PO QAM 05/09/20 09/30/20 tamsulosin 0.4 mg PO HS 05/09/20 09/30/20 Magic Swizzle 1 dose PO ACHS 09/19/20 09/30/20 omeprazole 40 mg PO QAM 09/19/20 09/30/20 warfarin 2 mg PO DAILY 09/19/20 09/30/20 ciclesonide [Alvesco] 1 puff INHALATION BID 09/30/20 09/30/20 Previous Rx's Medication Instructions Recorded metoprolol succinate 100 mg PO DAILY #10 tab 09/23/20 magnesium oxide 800 mg PO QAM #14 tab 09/24/20 potassium chloride 20 meq PO DAILY #14 cap 09/24/20 levofloxacin 500 mg PO DAILY 10 Days #10 tab 09/27/20 Results & Data (ED) Vital Signs Vital Signs - 24 hr 09/30/20 00:13 09/30/20 00:37 09/30/20 01:25 Temperature 37.3 C Temperature Source Oral Pulse Rate 95 H Pulse Rate [Brachial] 89 Respiratory Rate 22 20 Respiratory Effort / Characteristics Short of Breath Blood Pressure 121/75 Blood Pressure [Right Arm] 121/78 Blood Pressure Mean 90 Blood Pressure Mean [Right Arm] 92 Pulse Oximetry 96 97 98 Oxygen Delivery Method Nasal Cannula Nasal Cannula Nasal Cannula Oxygen Flow Rate 5 3 3 Sepsis Recent Fever Within 48 Hours No Sepsis New/Unexplained Change in Mental Status N/A Sepsis Action Taken by Nursing No Action Required 09/30/20 01:51 Temperature Temperature Source Pulse Rate Pulse Rate [Brachial] Respiratory Rate 24 Respiratory Effort / Characteristics Blood Pressure Blood Pressure [Right Arm] Blood Pressure Mean Blood Pressure Mean [Right Arm] Pulse Oximetry 97 Oxygen Delivery Method Nasal Cannula Oxygen Flow Rate 4 Sepsis Recent Fever Within 48 Hours Sepsis New/Unexplained Change in Mental Status Sepsis Action Taken by Nursing Laboratory Data Result diagrams: 09/30/20 00:42 09/30/20 00:42 Lab Results 09/30/20 09/30/20 09/30/20 Range/Units 00:42 00:42 00:42 WBC 16.05 H (4.8-10.8) K/uL RBC 2.54 L (4.7-6.1) M/uL Hgb 8.0 L (14.0-18.0) g/dL Hct 23.4 L (42-52) % MCV 92.1 (80-100) fL MCH 31.5 (25-34) pg MCHC 34.2 (32-36) g/dL RDW Std Deviation 57.5 H (36.4-46.3) fL RDW Coeff of Ivis 17.4 H (11.5-14.5) % Plt Count 321 (130-400) K/uL MPV 8.7 (7.4-10.4) fL Immature Gran % (Auto) 0.7 % Neut % (Auto) 87.9 % Lymph % (Auto) 7.1 % Benson % (Auto) 3.9 % Eos % (Auto) 0.2 % Baso % (Auto) 0.2 % Neut # (Auto) 14.11 H (1.4-6.5) K/uL Lymph # (Auto) 1.14 L (1.2-3.4) K/uL Benson # (Auto) 0.62 H (0.11-0.59) K/uL Eos # (Auto) 0.04 (0-0.5) K/uL Baso # (Auto) 0.03 (0-0.2) K/uL Immature Gran # (Auto) 0.11 H (0.00-0.02) K/uL PT 36.1 H (9.0-12.0) Seconds INR 4.0 H (0.9-1.1) APTT 38.9 H (21.0-31.0) Seconds PTT Ratio 1.5 Sodium 141 (136-145) mmol/L Potassium 4.3 (3.5-5.1) mmol/L Chloride 105 (98-107) mmol/L Carbon Dioxide 28 (21-32) mmol/L Anion Gap 8.0 (3-11) BUN 23 H (7-18) mg/dl Creatinine 1.70 H (0.6-1.4) mg/dl Est Cr Clr Drug Dosing 42.7 ml/min Est GFR ( Amer) 45.4 Est GFR (Non-Af Amer) 39.1 BUN/Creatinine Ratio 13.7 (10-20) Glucose 150 H (70-99) mg/dl Calcium 7.7 L (8.5-10.1) mg/dl Magnesium 0.9 L* (1.8-2.4) mg/dl Total Bilirubin 0.9 (0.2-1) mg/dl AST 7 L (15-37) U/L ALT 16 (12-78) U/L Alkaline Phosphatase 100 (45-117) U/L Troponin I < 0.015 (0-0.045) ng/ml Total Protein 5.5 L (6.4-8.2) gm/dl Albumin 2.8 L (3.4-5.0) gm/dl Globulin 2.7 (2.5-4.0) gm/dl Albumin/Globulin Ratio 1.0 (0.9-2) COVID-19 Eval Order SARS-CoV-2 (PCR) (Negative) Influenza Type A (PCR) (Neg) Influenza Type B (PCR) (Neg) RSV (RT-PCR) (Neg) 09/30/20 09/30/20 Range/Units 02:08 02:08 WBC (4.8-10.8) K/uL RBC (4.7-6.1) M/uL Hgb (14.0-18.0) g/dL Hct (42-52) % MCV (80-100) fL MCH (25-34) pg MCHC (32-36) g/dL RDW Std Deviation (36.4-46.3) fL RDW Coeff of Ivis (11.5-14.5) % Plt Count (130-400) K/uL MPV (7.4-10.4) fL Immature Gran % (Auto) % Neut % (Auto) % Lymph % (Auto) % Benson % (Auto) % Eos % (Auto) % Baso % (Auto) % Neut # (Auto) (1.4-6.5) K/uL Lymph # (Auto) (1.2-3.4) K/uL Benson # (Auto) (0.11-0.59) K/uL Eos # (Auto) (0-0.5) K/uL Baso # (Auto) (0-0.2) K/uL Immature Gran # (Auto) (0.00-0.02) K/uL PT (9.0-12.0) Seconds INR (0.9-1.1) APTT (21.0-31.0) Seconds PTT Ratio Sodium (136-145) mmol/L Potassium (3.5-5.1) mmol/L Chloride (98-107) mmol/L Carbon Dioxide (21-32) mmol/L Anion Gap (3-11) BUN (7-18) mg/dl Creatinine (0.6-1.4) mg/dl Est Cr Clr Drug Dosing ml/min Est GFR ( Amer) Est GFR (Non-Af Amer) BUN/Creatinine Ratio (10-20) Glucose (70-99) mg/dl Calcium (8.5-10.1) mg/dl Magnesium (1.8-2.4) mg/dl Total Bilirubin (0.2-1) mg/dl AST (15-37) U/L ALT (12-78) U/L Alkaline Phosphatase (45-117) U/L Troponin I (0-0.045) ng/ml Total Protein (6.4-8.2) gm/dl Albumin (3.4-5.0) gm/dl Globulin (2.5-4.0) gm/dl Albumin/Globulin Ratio (0.9-2) COVID-19 Eval Order CovFluRsv at [facility] SARS-CoV-2 (PCR) NEGATIVE (Negative) Influenza Type A (PCR) Negative (Neg) Influenza Type B (PCR) Negative (Neg) RSV (RT-PCR) Negative (Neg) Administered Medications Discontinued Medications Magnesium Sulfate/Dextrose (Magnesium Sulfate / D5w) 1 gm in 100 mls @ 100 mls/hr IV NOW STA Stop: 09/30/20 02:59 Last Infusion: 09/30/20 03:17 Dose: 0 mls/hr Documented by: [id number] Admin: 09/30/20 02:12 Dose: 100 mls/hr Documented by: [id number] Piperacillin Sod/Tazobactam (Sod 3.375 gm/ Dextrose) 115 mls @ 230 mls/hr IV ONE ONE; Protocol Stop: 09/30/20 05:38 Last Infusion: 09/30/20 06:33 Dose: 230 mls/hr Documented by: [id number] Infusion: 09/30/20 06:14 Dose: 0 mls/hr Documented by: [id number] Admin: 09/30/20 06:04 Dose: 230 mls/hr Documented by: [id number] Phytonadione 10 mg/ Sodium (Chloride) 51 mls @ 102 mls/hr IV ONE ONE Stop: 09/30/20 05:38 Last Infusion: 09/30/20 06:33 Dose: 0 mls/hr Documented by: [id number] Admin: 09/30/20 05:59 Dose: 102 mls/hr Documented by: [id number] Discharge Plan Visit Data Chief Complaint: Shortness of Breath/Dyspnea Stated Complaint: SHORT OF BREATH ED Provider: Scarlet Mcneil Discharge Problem: Pleural effusion on left, Hypomagnesemia, Anemia, Hemoptysis, Supratherapeutic INR Patient Disposition: Admitted As Inpatient Discharge Instructions Interventions: ED Discharge Assessment Last Done: 09/30/20 04:32 Discharge Problem: Anemia Qualifiers: Anemia type: unspecified type Qualified Code(s): D64.9 - Anemia, unspecified
[2020-09-30 02:57] LABS: Influenza A virus by PCR Negative (Neg); Influenza B virus by PCR Negative (Neg); RSV by PCR Negative (Neg); SARS CoV2 RNA(COVID-19) InHosp NEGATIVE (Negative)
--- NOTE | 2020-09-30 03:03 | History & Physical Report ---
Date of Service September 30, 2020 Assessment & Plan Admission and Anticipated Discharge Date Admission Date: 75 yo M w/ pMHx. of schizophrenia, dementia, COPD, SCLC, HLD, CKD, GERD, A. fib on warfarin with prior hx. of DVT presents with worsening shortness of breath and hemoptysis found to have progression on imaging of left lower lobe infiltrate and development of an effusion concerning for post obstructive pna given new nodule seen on prior CT (although only 5mm and peripheral) vs. aspiration pna vs. malignant effusion in the setting of SCLC. Pneumonia would be considered hospital associated given recent admission. Given patient was supra therapeutic on warfarin PE is less likely. - admit to med/surg - tele Left lower lobe infiltrate and effusion on CXR, neutrophil predominant leukocytosis, tachycardia, hemoptysis and worsening shortness of breath concerning for hospital associated PNA failed outpatient treatment with Levaquin - ordered lactate, procalcitonin, sputum culture - started Linezolid and Zosyn - consulted pulmonology for possible diagnostic/therapeutic thoracentesis if indicated - reversed warfarin with vitamin K for possible procedure - made NPO after midnight COPD (chronic obstructive pulmonary disease) - Continue Xopenex HFA, montelukast 10mg daily, Spiriva 1 puff daily, Alvesco Small cell lung cancer - new L sided nodule noted on prior CT - CT non contrast ordered Acute kidney failure with baseline Cr is ~1.0, CKD Stage II. - Cr. 1.7 on admission - follow with AM BMP Atrial fibrillation, rate controlled - monitored on tele floor - INR 4, reversed with Vitamin K - will potentially need to start a DOAC during hospitalization prior to discharge - recheck INR with AM labs Schizophrenia - continue Haldol Dementia - continue Benztropine Anemia w/ Hgb at 8 - small volume hemoptysis but no other indication of bleeding. Likely due to bone marrow suppression - Monitor BPH - Continue Flomax - Monitor UOP Hx. DVT - INR supra therapeutic at 4 - reversed as above - continue to monitor for this given patient has active cancer and warfarin was reversed GERD - continue Omeprazole Hypomagnesemic to 0.9, unclear cause possibly due to PPI vs. renal losses (not on lasix) - given 1g in the ED - recheck in AM and replete as needed DVT: SCD's Code: full Diet: NPO after midnight COVID: negative 09/30/20 History of Present Illness Chief Complaint: shortness of breath Primary Care Provider: CLAU Bolanos Mr. Quinn Nichols is here for shortness of breath. He has a past medical history of schizophrenia, dementia, COPD, SCLC, HLD, CKDII, GERD, A. fib, prior DVT. He was spitting up blood on two occasions about 2 tablespoons each time starting at 8:30 PM 09/29 and had associated cough and shortness of breath. He is normally on 5L at the facility and is currently on 4 L saturating well. He denies any Melena. He states that he does not have any trouble swallowing food and hasn't choked on anything. He was recently discharged from the hospital on the , admitted for A. fib with RVR. He was then seen on the in the ER for Left lower lobe pneumonia and prescribed Levaquin and discharged. ED course: 1gm Magnesium Allergies Allergy/AdvReac Type Severity Reaction Status Date / Time No Known Allergies Allergy Verified 09/30/20 01:37 Home Medications Medication Instructions Recorded Confirmed Type Senna Plus 2 tab-cap PO QAM 05/09/20 09/30/20 History Spiriva with HandiHaler 1 cap INHALATION QAM 05/09/20 09/30/20 History atorvastatin 20 mg PO HS 05/09/20 09/30/20 History benztropine 1 mg PO QAM 05/09/20 09/30/20 History haloperidol 1 mg PO BID 05/09/20 09/30/20 History haloperidol 2 mg PO BID 05/09/20 09/30/20 History hydroxyzine HCl 25 mg PO BID 05/09/20 09/30/20 History levalbuterol tartrate [Xopenex HFA] 2 inh INHALATION QID PRN 05/09/20 09/30/20 History montelukast 10 mg PO QAM 05/09/20 09/30/20 History tamsulosin 0.4 mg PO HS 05/09/20 09/30/20 History Magic Swizzle 1 dose PO ACHS 09/19/20 09/30/20 History warfarin 2 mg PO DAILY 09/19/20 09/30/20 History metoprolol succinate 100 mg PO DAILY #10 tab 09/23/20 09/30/20 Rx magnesium oxide 800 mg PO QAM #14 tab 09/24/20 09/30/20 Rx potassium chloride 20 meq PO DAILY #14 cap 09/24/20 09/30/20 Rx Alvesco 1 puff INHALATION BID 09/30/20 09/30/20 History cefdinir 300 mg PO BID 10 Days #20 cap 10/03/20 Rx doxycycline hyclate 100 mg PO BID 10 Days #20 cap 10/03/20 Rx omeprazole 40 mg PO BID #0 cap 10/03/20 09/30/20 Rx prednisone 10 mg PO UD #160 tab 10/03/20 Rx Past Med/Surg History Medical History (Updated 10/03/20 @ 15:54 by David Chacko MD) Anxiety Atrial fibrillation ANTICOAGULATED WITH COUMADIN Chronic obstructive pulmonary disease CKD (chronic kidney disease) stage 2, GFR 60-89 ml/min Hyperlipidemia Hypertension Inmate in correctional facility Nocturia Phlebitis DEEP LOWER EXTREMITY. 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 Has followed with Dr. Calle. Social History Tobacco Type: Cigarettes Age Started Using Tobacco: 11; Age Quit Using Tobacco: 55; packs per day: 1; Years Smoked: 44; Cigarettes Per Day: 20; Number of Years Since Quit: 20; Second Hand Exposure: No; Do You Dip or Chew Tobacco: No; Hx Alcohol Use: No Hx Substance Use: No Preferred Language: Georgian Communication Ability: Effective Visual Impairment: No Limitations Hearing Ability: Normal Manager Switch Required: No Beliefs That Will Affect Care: None marital status: Single Current Living Situation: Other Current Living Situation Comment: CLAU Bolanos current occupational status: unemployed caffeine: No during the past year weight has: remained stable Dental Care, Regularly: No Seatbelt Use: always Sunscreen Use: No Assistive Devices: Walker Review of Systems Review of Systems: Constitutional: denies fevers, chills, nausea, vomiting, night sweats Head: denies LOC, admits fall 1.5 months ago and admits vision changes worsening overall Neuro: denies syncope, presyncope ENT: denies sore throat Cardiac: denies chest pain, leg edema, admits chronic palpitations with A. fib pulm: denies sputum production admits cough and hemoptysis GI: denies diarrhea, constipation, blood in stool, change in bowel habits : denies dysuria admits urgency Physical Exam Constitutional: + ill appearing, + cachectic and + disheveled Eyes: PERRL, conjunctivae normal, anicteric sclerae ENMT: external ear and nose normal, oropharynx normal Neck: normal visual inspection Respiratory: - able to speak in 5-6 words sentences - no accessory muscle use - crackles bilaterally with absent breath sounds at the left base - slight expiratory wheeze Cardiovascular: irregular rate, tachy Gastrointestinal (Abdomen): normal bowel sounds, soft, nontender, no hepatosplenomegaly Musculoskeletal: no cyanosis or clubbing, extremities motor strength 5/5 Skin: no rashes, warm and dry Neurologic: no focal motor deficits Speech / Cognition: normal speech Psychiatric: Affect: + flat affect Lymphatic: no cervical lymphadenopathy Results & Data Results & Data ([facility]) Vital Signs (Past 12 Hours) Vital Signs Temp Pulse Pulse Resp BP BP Pulse Ox 09/30/20 01:51 24 97 09/30/20 01:25 89 20 121/78 98 09/30/20 00:37 97 09/30/20 00:13 37.3 C 95 H 22 121/75 96 CBC Results Results Complete Blood Count Results: RBC 2.91 M/uL (4.7-6.1) L 10/03/20 WBC 17.23 K/uL (4.8-10.8) H 10/03/20 Hgb 9.1 g/dL (14.0-18.0) L 10/03/20 Hct 26.5 % (42-52) L 10/03/20 Plt Count 513 K/uL (130-400) H 10/03/20 Chemistry (BMP) Results BMP Results: Sodium 139 mmol/L (136-145) 10/03/20 Potassium 3.7 mmol/L (3.5-5.1) 10/03/20 Chloride 103 mmol/L (98-107) 10/03/20 BUN 32 mg/dl (7-18) H 10/03/20 Creatinine 1.63 mg/dl (0.6-1.4) H 10/03/20 Glucose 94 mg/dl (70-99) 10/03/20 Supervising Physician Co-Signing Physician Notes Attending addendum: I have physically seen this patient, have supervised the medical residents activities, and agree with the H&P unless as otherwise noted. Assessment and Plan: Left lower lobe pneumonia/parapneumonic effusion/COPD/small cell lung cancer- Most recent admission from 09/19-09/24/2020. Placed on Zyvox 60 mg IV every 12 hours and Zosyn 4.5 g IV every 8 hours. Presently with STACI Duonebs every 4 hours while awake and every 2 hours when necessary. Consult pulmonology for assessment for possible diagnostic/therapeutic thoracentesis, with history of recent left lower lobe pulmonary nodule finding. Atrial fibrillation- INR 4 upon admission, reversed with vitamin K 10 mg IV for possible thoracentesis Hold warfarin, and follow laboratory serially in the a.m. STACI- Creatinine 1.70 upon admission. Follow laboratory serially remaining orders and notations as noted Remainder of orders and notations as noted Resident Activity Tracking Resident Involvement: Resident Care Provided Care Provided: Adult Hospital Medicine
[2020-09-30] MEDS ORDERED: PIPERACILLIN/TAZOBACTAM 3.375 GM in DEXTROSE 5% 100 ML IV ONE (05:09)
[2020-09-30] MEDS ORDERED: PHYTONADIONE 10 MG in SODIUM CHLORIDE 0.9% 50 ML IV ONE (05:09)
[2020-09-30] MEDS ORDERED: POLYETHYLENE (MIRALAX) 17 GM PACK PO PRN (05:09)
[2020-09-30] MEDS ORDERED: ACETAMINOPHEN 325 MG TAB PO PRN (05:09)
[2020-09-30] MEDS ORDERED: LINEZOLID CONSULT ACTIVE PRN (05:09)
[2020-09-30] MEDS ORDERED: PIPERACILL/TAZOBAC CONSULT ACTIVE PRN (05:09)
[2020-09-30] MEDS ORDERED: LINEZOLID 600 MG/300 ML D5W IV SCH (05:09)
--- NOTE | 2020-09-30 07:28 | CT Scan Report ---
CT chest diagnostic wo con CLINICAL HISTORY: left sided effusion COMPARISON STUDY: CT scan dated 09/19/2020, chest x-ray dated 09/30/2020 CT DOSE: 378.46 mGy.cm TECHNIQUE: CT of the thorax was performed from the thoracic inlet to the lung bases. Images are revi ewed in the axial, sagittal, and coronal planes. IV contrast was not administered for this examinatio n. A dose lowering technique was utilized adhering to the principles of ALARA. FINDINGS: Thyroid: There is a persistent 14 mm right lobe thyroid nodule Thoracic aorta: There is dilatation of the ascending thoracic aorta which measures 42 mm. Heart: There is a small pericardial effusion. A pacemaker is visualized. Lungs and pleural spaces: There is a trace right pleural effusion and [id number] left pleural effusion. There is pulmonary emphysema. There a right upper lobe airspace opacities consistent with a pneumonia. There is a 4 cm right lower lobe pulmonary mass. There is a 4 mm right upper lobe pulmona ry nodule. There is a 6 mm left lower lobe pulmonary nodule. Mediastinum: There are borderline enlarged mediastinal lymph nodes. [place]: Hilar structures are difficult to assess without intravenous contrast. There is no definitive p athologic adenopathy Axilla: Left axillary lymph nodes are the upper limits of normal in size Upper abdomen: Partially visualized upper abdominal viscera is within normal limits. Skeletal structures: There is redemonstration of T12 and L1 vertebral body fractures. IMPRESSION: 1. Interval development of left upper lobe airspace opacities consistent with pneumonia. 2. Redemonstration of a 4 cm right lower lobe pulmonary mass 3. Bilateral pleural effusions left greater than right 4. Pulmonary emphysema 5. Dilatation of the ascending thoracic aorta which measures 42 mm ACT 112: Negative or not required by law. Electronically signed by: Faizan Carbajal M.D. 09/30/2020 7:27 AM
[2020-09-30] MEDS ORDERED: NON-FORMULARY MEDICATION (Magic Swizzle 1 EA) PO SCH (07:30)
--- NOTE | 2020-09-30 07:47 | XRay Report ---
SINGLE VIEW CHEST CLINICAL HISTORY: Dyspnea. FINDINGS: 2 AP upright chest radiographs are compared to study dated 09/27/2020 and correlated with est CT dated 09/19/2020. The examination is degraded by patient rotation and apical lordotic positioni ng. A 2-lead cardiac pacemaker is unchanged in position and partially obscures the left mid chest. Th e heart is top normal for projection noting atherosclerotic calcification of the thoracic aorta. Pulm onary vasculature is noncongested. Emphysema and chronic interstitial thickening is similar to previo us. A known right infrahilar mass lesion is not well assessed. Scarring/atelectasis is seen at the tonja ng bases. There is volume loss in the left lung with dense left basilar consolidation. There are smal l pleural effusions. The skeletal structures are osteopenic. The bony thorax is grossly intact. IMPRESSION: 1. There is dense left basilar airspace consolidation, significantly increased from 09/27/2020. Correl ate clinically for evidence of pneumonia/aspiration pneumonitis. Radiographic follow-up to resolution is recommended. 2. Advanced emphysema. A known right infrahilar lung mass is not well assessed. 3. Small pleural effusions. 4. Cardiomegaly and cardiac pacemaker. ACT 112: Negative or not required by law. Electronically signed by: Deangelo Thacker M.D. 09/30/2020 7:46 AM
[2020-09-30] MEDS: Magic Swizzle w/Glycerin 240mL MT SCH ×4 (07:48→20:02)
[2020-09-30] MEDS: FLUTICASONE FUROATE 200MCG 14 PUFFS/INHALER INH SCH (07:48)
[2020-09-30] MEDS: METOPROLOL SUCC 50MG EXT REL TAB PO SCH (07:49)
[2020-09-30] MEDS: MONTELUKAST SODIUM 10 MG TABLET PO SCH (07:49)
[2020-09-30] MEDS: hydrOXYzine HCl 25 MG TAB PO SCH ×2 (07:49→20:01)
[2020-09-30] MEDS: haloperidoL 1 MG TAB PO SCH ×2 (07:49→20:01)
[2020-09-30] MEDS: DOCUSATE SODIUM/SENNA 50/8.6MG TAB PO SCH (07:49)
[2020-09-30] MEDS: UMECLIDINIUM BROMIDE 62.5MCG/BLISTER 7 PUFFS/INHALER INH SCH (07:49)
[2020-09-30] MEDS: PANTOprazole 40 MG TAB PO SCH (07:49)
[2020-09-30] MEDS: MAGNESIUM OXIDE 400 MG TAB PO SCH (07:50)
[2020-09-30] MEDS: BENZTROPINE MESYLATE 1 MG TAB PO SCH (07:50)
[2020-09-30] MEDS ORDERED: LINEZOLID 600 MG/300 ML BAG IV SCH (08:00)
--- NOTE | 2020-09-30 08:15 | Hospitalist Progress Note ---
Date of Service September 30, 2020 Assessment & Plan (1) LLL pneumonia: 75 M with history of small cell lung cancer preseted with shortness of breath and hemoptysis found to have progression on imaging of left lower lobe infiltrate and development of an effusion concerning for post obstructive pna given new nodule seen on prior CT (although only 5mm and peripheral) vs. malignant effusion in the setting of SCLC. Pneumonia would be considered hospital associated given recent admission. Given patient was supra therapeutic on warfarin PE is less likely. Left lower lobe infiltrate and effusion on CXR, neutrophil predominant leukocytosis, tachycardia, hemoptysis and worsening shortness of breath concerning for hospital associated PNA failed outpatient treatment with Levaquin Linezolid and Zosyn - consulted pulmonology commendations for diuresis and treating possible pneumonitis with prednisone will be undertaken no plans on thoracentesis at this time - given dose of vitamin K for supratherapeutic INR (2) Pleural effusion on left: seen on imaging, on side associated with new imaging concerning for metastatic cancer, pulmonary evaluation diuresis and steroids may help work of breathing (3) Small cell lung 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: 01/31/2020. Chest x-ray. Large right infrahilar mass 02/22/2020. Chest CT. 6 cm right infrahilar mass. 04/03/2020. PET/CT. Intensely FDG avid 7 cm right lower lobe pulmonary mass. FDG avid right infracarinal lymph node, FDG avid nonpathologically enlarged right hilar node. 05/10/2022. Bronchoscopy with EBUS. Biopsies revealing small cell carcinoma. 08/30/2020. Status post completion of combined radiation and chemotherapy. He received 7000 cGy. Chemotherapy comprised of etoposide and cisplatin. (4) COPD (chronic obstructive pulmonary disease): remains on xopenex, montelukast, spiriva and alvesco (5) Atrial fibrillation: previously on full AC, rate controlled with metoprolol succinate 100mg (6) Anticoagulant long-term use: typically on warfarin 2, elevated INR maybe from quinalone (7) Acute kidney failure: (8) Anemia: concern with hemoptysis, has previously had anemia of chronic disease (9) BPH (benign prostatic hyperplasia): continues on flomax no LUT symptoms (10) Schizophrenia: remains on haldol Admission and Anticipated Discharge Date Admission Date: September 30, 2020 Subjective Patient has had 1 more bout of hemoptysis on the morning of 09/30 and is quieted down since that time. His INR remains supratherapeutic at 4.0 he was given vitamin K on 09/29. Pulmonary medicine does not plan any interventional analysis of pleural effusion and feel it may most likely be subsequent to his poor nutritional status. He has persistent right lung lesion noted by pulmonary medicine. There is a discussion of radiation pneumonitis by pulmonary medicine wishing to start prednisone therapy and diuresis to help pulmonary symptoms Review of Systems Review of Systems: Moderate respiratory distress and moderate fatigue no headache, blurry or double vision no speech or swallowing issues no chest pain, pressure or palpitations Tachypneic and dyspneic cough with hemoptysis no abdominal pain, nausea or vomiting, diarrhea or constipation no dysuria, hematuria or frequency no focal joint pain persistent lower extremity and arm swelling no back pain, CVA tenderness or radicular pain Patient has various bruising on his arms due to recent hospital stays in chronic use of anticoagulants no focal signs of weakness or numbness or altered sensation is globally very weak no complaints of anxiety or depression.. Physical Exam Physical Exam: The patient appeared chronically ill looks much older than his stated age Vital signs as documented. Head exam is normocephalic atraumatic no scleral icterus Neck is without JVD, thyromegaly, or carotid bruits. Lungs diminished bilaterally with poor air movement prolonged expiratory phase dullness at bilateral bases Cardiac exam, Rhythm is regular.. Systolic ejection murmur is heard Abdominal exam reveals normal bowel sounds, soft non tender, no masses Extremities are 1+ edematous both arms and legs Neurologic exam is alert and oriented, no focal loss of strength or sensation Skin is with bruises in various stages of healing Psychologically is without concerns for anxiety or depression Results & Data Results & Data ([facility]) Vital Signs (Past 12 Hours) Vital Signs Temp Pulse Pulse Resp BP BP BP 09/30/20 07:10 97.2 F L 82 20 120/77 09/30/20 06:33 107 H 24 113/82 09/30/20 06:14 86 22 115/79 09/30/20 05:50 108 H 09/30/20 05:29 97.3 F L 109 H 26 H 137/91 09/30/20 03:17 101 H 16 123/83 09/30/20 01:51 24 09/30/20 01:25 89 20 121/78 09/30/20 00:37 09/30/20 00:13 99.1 F 95 H 22 121/75 Pulse Ox 09/30/20 07:10 99 09/30/20 06:33 96 09/30/20 06:14 100 09/30/20 05:50 09/30/20 05:29 96 09/30/20 03:17 96 09/30/20 01:51 97 09/30/20 01:25 98 09/30/20 00:37 97 09/30/20 00:13 96 PG Care Time/CCT Total # of Minutes Spent Total Time Spent with Patient: Total time spent is greater than 50% in coordination of care (as documented) at patient's floor/unit and/or counseling patient: Coding Level of Care Code 79254 Subseq Hosp Care Lvl 3 Diagnoses LLL pneumonia J18.9 Pneumonia type: due to unspecified organism Pleural effusion on left J90 Small cell lung 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 C34.90 COPD (chronic obstructive pulmonary disease) J44.9 Atrial fibrillation I48.0 Atrial fibrillation type: paroxysmal Anticoagulant long-term use Z79.01 Acute kidney failure N17.9 Anemia D64.9 Anemia type: unspecified type BPH (benign prostatic hyperplasia) N40.0 Schizophrenia F20.9 (1) Anemia Anemia type: unspecified type Qualified Code(s): D64.9 - Anemia, unspecified (2) Atrial fibrillation Atrial fibrillation type: paroxysmal Qualified Code(s): I48.0 - Paroxysmal atrial fibrillation (3) LLL pneumonia Pneumonia type: due to unspecified organism Qualified Code(s): J18.9 - Pneumonia, unspecified organism
--- NOTE | 2020-09-30 08:20 | Electrocardiogram Report ---
Test Reason : Blood Pressure : / mmHG Vent. Rate : 095 BPM Atrial Rate : 312 BPM P-R Int : 000 ms QRS Dur : 102 ms QT Int : 364 ms P-R-T Axes : 000 022 011 degrees QTc Int : 457 ms Atrial fibrillation Low voltage QRS Incomplete right bundle branch block Abnormal ECG When compared with ECG of 27-SEP-2020 10:38, Atrial fibrillation has replaced Electronic ventricular pacemaker Confirmed by Quinn Tomas ([id number]) on 09/30/2020 8:20:38 AM Referred By: REFERRED SELF Confirmed By:Erwin Tomas
[2020-09-30] MEDS ORDERED: SODIUM CHLORIDE 0.9% 1000ML 1,000 ML IV SCH (08:30)
[2020-09-30] MEDS ORDERED: MAGNESIUM SULFATE / D5W 1 GM/100 ML BAG IV ONE (08:45)
[2020-09-30] MEDS ORDERED: haloperidoL 1 MG TAB PO SCH (09:00)
[2020-09-30] MEDS ORDERED: PIPERACILLIN/TAZOBACTAM 3.375 GM in DEXTROSE 5% 100 ML IV SCH (10:00)
--- NOTE | 2020-09-30 12:53 | Pulmonary Consultation ---
Date of Consultation September 30, 2020 Assessment & Plan (1) Hemoptysis: I do not think that the patient has a bacterial infection at this time. Atypical infection, such as fungal infection or atypical bacteria, is difficult to rule out. Bronchoscopy can be considered when his INR improves. Continue to hold warfarin given his hemoptysis. He did apparently receive IV vitamin K. His hemoptysis is improved today. There is groundglass density noted in the left upper lobe with areas of consolidation. Etiology of this is unclear and may be related to focal alveolar hemorrhage, chemoradiation pneumonitis and/or atypical infection. I have discontinued linezolid and Zosyn. I placed an order for doxycycline. He did complete a course of Levaquin as an outpatient. His procalcitonin was negative. I have also placed the patient on 40 mg of prednisone daily for possible pneumonitis related to chemo/radiation. Prednisone can be tapered over the course of 2 to 3 weeks. He also has evidence of bilateral pleural effusions which may be related to low oncotic pressure from his hypoalbuminemic state, diastolic heart failure and CKD. Notably, his proBNP was 5573. Malignant pleural effusions are less likely given the bilateral appearance of the effusions. Recommend diuresis with IV Lasix with repeat imaging. We will hold off on thoracentesis at this time given his elevated INR. He is presently hypomagnesemic and this is being replaced by the primary team. Thank you for the consultation. Pulmonary will continue to follow along with you. Please call us with questions. (2) Supratherapeutic INR: (3) Small cell lung 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: (4) Pneumonitis: History of Present Illness Reason for Consultation: Hemoptysis and bilateral pleural effusions Attending Physician: David Chacko MD History of Present Illness 75-year-old male with a past medical history of locally advanced small cell lung cancer followed by cancer care [facility] who has been undergoing concurrent chemoradiation presenting to the hospital due to hemoptysis and shortness of breath. Patient also has a history of atrial fibrillation on warfarin. INR is currently 4. Patient is on chronic oxygen in the [facility], but notes that he has been more short of breath than usual. He says that he had hemoptysis twice over the past 2 days. He denies any hemoptysis today. He denies any chest pain, fevers or chills. He was previously a heavy smoker. He does not smoke presently. CT of his chest completed on 09/30/2019 without contrast demonstrated interval development of a left lower lobe airspace opacity, bilateral effusions and pulmonary emphysema. Patient is currently requiring 4 L of oxygen to maintain saturations of 96%. Procalcitonin is 0.06. He is currently on linezolid and Zosyn. Allergies Allergy/AdvReac Type Severity Reaction Status Date / Time No Known Allergies Allergy Verified 09/30/20 01:37 Home Medications Medication Instructions Recorded Confirmed Type Senna Plus 2 tab-cap PO QAM 05/09/20 09/30/20 History Spiriva with HandiHaler 1 cap INHALATION QAM 05/09/20 09/30/20 History atorvastatin 20 mg PO HS 05/09/20 09/30/20 History benztropine 1 mg PO QAM 05/09/20 09/30/20 History haloperidol 1 mg PO BID 05/09/20 09/30/20 History haloperidol 2 mg PO BID 05/09/20 09/30/20 History hydroxyzine HCl 25 mg PO BID 05/09/20 09/30/20 History levalbuterol tartrate [Xopenex HFA] 2 inh INHALATION QID PRN 05/09/20 09/30/20 History montelukast 10 mg PO QAM 05/09/20 09/30/20 History tamsulosin 0.4 mg PO HS 05/09/20 09/30/20 History Magic Swizzle 1 dose PO ACHS 09/19/20 09/30/20 History omeprazole 40 mg PO QAM 09/19/20 09/30/20 History warfarin 2 mg PO DAILY 09/19/20 09/30/20 History metoprolol succinate 100 mg PO DAILY #10 tab 09/23/20 09/30/20 Rx magnesium oxide 800 mg PO QAM #14 tab 09/24/20 09/30/20 Rx potassium chloride 20 meq PO DAILY #14 cap 09/24/20 09/30/20 Rx levofloxacin 500 mg PO DAILY 10 Days #10 tab 09/27/20 09/30/20 Rx ciclesonide [Alvesco] 1 puff INHALATION BID 09/30/20 09/30/20 History Patient History Medical History Anxiety Atrial fibrillation ANTICOAGULATED WITH COUMADIN Chronic obstructive pulmonary disease CKD (chronic kidney disease) stage 2, GFR 60-89 ml/min Hyperlipidemia Hypertension Inmate in correctional facility Nocturia Phlebitis DEEP LOWER EXTREMITY. Pulmonary mass Shortness of breath Sick sinus syndrome s/p insertion of PPM 06/02/16 Syncope Implantation of dual-chamber [employer]onic pacemaker 06/02/2016 Surgical History History of appendectomy History of tonsillectomy Status post biventricular cardiac pacemaker insertion 2015. Has followed with Dr. Calle. Social History Smoking Status: Former smoker Tobacco Type: Cigarettes Age Started Using Tobacco: 11; Age Quit Using Tobacco: 55; packs per day: 1; Years Smoked: 44; Cigarettes Per Day: 20; Number of Years Since Quit: 20; Second Hand Exposure: No; Do You Dip or Chew Tobacco: No; Hx Alcohol Use: No Hx Substance Use: No Preferred Language: Bruneian Communication Ability: Effective Visual Impairment: No Limitations Hearing Ability: Normal Container Coordinator Required: No Beliefs That Will Affect Care: None marital status: Single Current Living Situation: Other Current Living Situation Comment: [facility] current occupational status: unemployed caffeine: No during the past year weight has: remained stable Dental Care, Regularly: No Seatbelt Use: always Sunscreen Use: No Assistive Devices: Oxygen - Continuous Review of Systems Review of Systems: All systems reviewed & are unremarkable except as noted in HPI & below Physical Exam Constitutional: Frail-appearing 75-year-old male with a large scraggly guy. He is accompanied by 2 nursing home guards. He is laying in bed. He does appear tachypneic. Eyes: PERRL, conjunctivae normal, anicteric sclerae ENMT: external ear and nose normal, oropharynx normal Neck: normal visual inspection Respiratory: + tachypneic Prolonged phase of exhalation. Cardiovascular: Rate/Rhythm: + irregularly irregular Heart Sounds: normal S1 and normal S2 Gastrointestinal (Abdomen): normal bowel sounds, soft, nontender, no hepatosplenomegaly Musculoskeletal: no cyanosis or clubbing, extremities motor strength 5/5 Skin: no rashes, warm and dry Neurologic: PERRL, EOMI, accommodation nl, no face palsy, no dysarthria Psychiatric: A+Ox3, euthymic affect Results & Data Results & Data ([facility]) Vital Signs (Past 12 Hours) Vital Signs Temp Pulse Pulse Resp BP BP Pulse Ox 09/30/20 11:05 97.7 F 90 20 120/84 96 09/30/20 07:10 97.2 F L 82 20 120/77 99 09/30/20 06:33 107 H 24 113/82 96 09/30/20 06:14 86 22 115/79 100 09/30/20 05:50 108 H 09/30/20 05:29 97.3 F L 109 H 26 H 137/91 96 09/30/20 03:17 101 H 16 123/83 96 09/30/20 01:51 24 97 09/30/20 01:25 89 20 121/78 98 I reviewed the vital signs, labs and imaging. PG Care Time/CCT Total # of Minutes Spent Total Time Spent with Patient: Total time spent is greater than 50% in coordination of care (as documented) at patient's floor/unit and/or counseling patient: Coding Level of Care Code 58981 Inpt Consult Level 5 Diagnoses Hemoptysis R04.2 Supratherapeutic INR R79.1 Small cell lung 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 C34.90 Pneumonitis J18.9
[2020-09-30 13:15] LABS: Appearance Urine Cloudy (Clear); Bacteria Urine Automated Negative (Negative); Bilirubin Urine Negative (Negative); Blood Urine Negative (Negative); Color Urine Yellow; Glucose Urine UA Negative (Negative); Ketones Urine Negative (Negative); Leukocyte Esterase Urine Negative (Negative); Nitrite Urine Negative (Negative); Protein Urine Negative (Negative); RBC Urine Automated 0-4 /hpf (0-4); Urobilinogen Urine Negative (Negative)
[2020-09-30] MEDS: predniSONE 20 MG TAB PO SCH (13:50)
[2020-09-30] MEDS: DOXYCYCLINE HYCLATE 100 MG in DEXTROSE 5% 100 ML IV SCH (13:50)
[2020-09-30] MEDS ORDERED: FUROSEMIDE 20 MG in SYRINGE 0 ML IV ONE (17:00)
[2020-09-30] MEDS: ATORVASTATIN 20 MG TAB PO SCH (20:01)
[2020-09-30] MEDS: TAMSULOSIN HCL 0.4 MG CAP PO SCH (20:02)
[2020-09-30] MEDS ORDERED: predniSONE 10 MG TABLET PO SCH (21:00)
[2020-10-01] MEDS: DOXYCYCLINE HYCLATE 100 MG in DEXTROSE 5% 100 ML IV SCH ×2 (02:20→13:37)
[2020-10-01] MEDS: LEVALBUTEROL TARTRATE 15 GM HFA.AER.AD INH PRN ×2 (05:39→11:04)
[2020-10-01 07:10] LABS: Basophils # (auto) 0.02 K/uL (0-0.2); Basophils % (auto) 0.2 %; Hematocrit (blood only) 24.2 % (42-52); Hemoglobin 8.2 g/dL (14.0-18.0); Immature Granulocytes # (auto) 0.07 K/uL (0.00-0.02); Immature Granulocytes % (auto) 0.5 %; Lymphocytes # (auto) 1.16 K/uL (1.2-3.4); Lymphocytes % (auto) 8.7 %; Mean Corpuscular Hemoglobin 30.8 pg (25-34); Mean Corpuscular Hgb Conc 33.9 g/dL (32-36); Mean Platelet Volume 8.9 fL (7.4-10.4); Neutrophils # (auto) 11.63 K/uL (1.4-6.5); Neutrophils % (auto) 87.6 %; Platelet Count 369 K/uL (130-400); RDW Coefficient of Variation 17.2 % (11.5-14.5); RDW Standard Deviation 55.8 fL (36.4-46.3); Red Blood Count 2.66 M/uL (4.7-6.1); White Blood Count 13.28 K/uL (4.8-10.8)
[2020-10-01] MEDS: Magic Swizzle w/Glycerin 240mL MT SCH ×4 (07:15→20:03)
[2020-10-01] MEDS: FLUTICASONE FUROATE 200MCG 14 PUFFS/INHALER INH SCH (07:16)
[2020-10-01] MEDS: MONTELUKAST SODIUM 10 MG TABLET PO SCH (07:16)
[2020-10-01] MEDS: DOCUSATE SODIUM/SENNA 50/8.6MG TAB PO SCH (07:16)
[2020-10-01] MEDS: METOPROLOL SUCC 50MG EXT REL TAB PO SCH (07:16)
[2020-10-01] MEDS: UMECLIDINIUM BROMIDE 62.5MCG/BLISTER 7 PUFFS/INHALER INH SCH (07:16)
[2020-10-01] MEDS: hydrOXYzine HCl 25 MG TAB PO SCH ×2 (07:16→20:02)
[2020-10-01] MEDS: MAGNESIUM OXIDE 400 MG TAB PO SCH (07:17)
[2020-10-01] MEDS: BENZTROPINE MESYLATE 1 MG TAB PO SCH (07:17)
[2020-10-01] MEDS: PANTOprazole 40 MG TAB PO SCH (07:17)
[2020-10-01] MEDS: haloperidoL 1 MG TAB PO SCH ×2 (07:17→20:02)
[2020-10-01] MEDS: predniSONE 20 MG TAB PO SCH (07:17)
[2020-10-01 07:22] LABS: INR 1.3 (0.9-1.1); Prothrombin Time 13.1 Seconds (9.0-12.0)
[2020-10-01 07:53] LABS: BUN Creatinine Ratio 15.4 (10-20); Calcium 7.8 mg/dl (8.5-10.1); Creatinine Clr Calc Pharmacy 42.4 ml/min; Est GFR (Non-African American) 39.7; Magnesium 1.3 mg/dl (1.8-2.4); Phosphorus 3.3 mg/dl (2.5-4.9); Potassium 3.6 mmol/L (3.5-5.1)
[2020-10-01] MEDS: MAGNESIUM SULFATE / D5W 1 GM/100 ML BAG IV SCH ×3 (09:19→13:31)
--- NOTE | 2020-10-01 15:11 | XRay Report ---
SINGLE VIEW CHEST CLINICAL HISTORY: Status post thoracentesis. FINDINGS: An AP upright chest radiograph is compared to chest x-ray and chest CT dated 09/30/2020. The examination is degraded by patient rotation and apical lordotic positioning. A 2-lead cardiac pacema ker is unchanged in position and partially obscures the left upper chest. The heart is top normal for projection noting atherosclerotic calcification of the thoracic aorta. The pulmonary vasculature is noncongested. Emphysema and chronic interstitial thickening is similar to previous. A known right inf rahilar mass lesion is not well assessed. Scarring/atelectasis is seen at the lung bases. Airspace co nsolidation is again seen at the left mid to lower lung. There are only trace pleural effusions. The left pleural effusion has decreased in size from previous. No pneumothorax is identified. The skeleta l structures are osteopenic. The bony thorax is grossly intact. IMPRESSION: 1. A left pleural effusion has significantly decreased in size from yesterday. No pneumothorax is see n post procedure. 2. Airspace consolidation is again seen in the left mid to lower lung. The appearance is typical for pneumonia/aspiration pneumonitis. Radiographic follow-up to resolution is recommended. 3. Advanced emphysema. A known right infrahilar lung mass is not well assessed. 4. Cardiomegaly and cardiac pacemaker. ACT 112: Negative or not required by law. Electronically signed by: Deangelo Thacker M.D. 10/01/2020 3:09 PM
--- NOTE | 2020-10-01 15:57 | Procedure Note ---
Procedure Note Date of Service October 01, 2020 Procedure: Diagnostic therapeutic ultrasound-guided catheter thoracentesis Counter Top Assembler: Dr. Jairo Sahni Indication: Pleural effusion Consent: Signed by patient and verified with timeout prior to procedure Anesthesia: 1% lidocaine without epinephrine local. Procedure: Consent was verified and timeout performed. Appropriate imaging studies were reviewed prior to the procedure. Patient was placed in a seated position and limited thoracic ultrasound was performed of the left chest. See separate imaging. Appropriate site above the diaphragm for thoracentesis was selected. The skin was prepped and draped in normal sterile fashion. Lidocaine was used for local analgesia. Fluid was aspirated via the finder needle. A small skin rojas was made with the scalpel and the catheter over the needle apparatus was advanced over the rib into the pleural space. Using the syringe one-way valve system, a total of 1350 mL's of serous fluid was removed. The catheter was removed and observed to be intact. A sterile dressing was applied. Post procedure chest x-ray was ordered. Fluid was sent for labs, culture and cytology. Good lung finding appreciated postprocedure on the ultrasound. Complications: None Blood loss: Less than 1 cc Coding CPT Codes Pulmonary/Thoracic - Pulmonary and Thoracic: 59997 Thoracentesis w imaging ([id number]) [facility] Procedure Codes (Charges) Pulmonary/Thoracic Procedure 1: Pulmonary and Thoracic: 02725 Thoracentesis w imaging
--- NOTE | 2020-10-01 15:57 | Pulmonology Progress Note ---
Date of Service October 01, 2020 Assessment & Plan (1) Hemoptysis: --Hemoptysis Likely secondary to supratherapeutic INR Patient's hemoglobin has been stable INR today is 1.3 Continue with antitussive medications --Left upper lobe pneumonia New compared to CAT scan done 09/19/2020 Continue with atypical coverage along with Rocephin for total of 5 days COVID-19 negative 09/30/2020, procalcitonin: 0.06 Influenza A/B negative The likelihood of atypical infection like PJP is low given the dense consolidative process and predominant left upper lobe affected. Pneumonitis from chemotherapy is a possibility. Continue with prednisone for the time being along with antibiotics --Pleural effusion Moderate left-sided 2D echo 09/19/2020: EF 55-60%, right ventricle normal in size and function --Severe COPD with emphysema Not in exacerbation Continue with Incruse DC Arnuity and start Breo Discharge the patient on Trelegy --Small cell cancer S/p chemo and radiation Chemotherapy with etoposide and cisplatin Plan: For thoracentesis today. Continue with antitussive medication We will add Rocephin to doxycycline given the dense consolidative process along with groundglass opacity of the left upper lobe. No plan for bronchoscopy for the time being. If there is no improvement in the clinical status then a diagnostic bronchoscopy could be thought of. Follow sputum culture. Please note the above document was generated using voice recognition software. It may contain grammatical, syntax or spelling errors.Any formal questions or concerns about the content, text or information contained within the body of this dictation should be directly addressed to the provider for clarification. (2) Supratherapeutic INR: (3) Small cell lung 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: (4) Pneumonitis: Admission and Anticipated Discharge Date Admission Date: September 30, 2020 Subjective Patient seen and examined at bedside. No acute distress, no adverse events overnight. Patient says that he is not having hemoptysis anymore. He still complains of cough which is decreasing amount and frequency. Denies any chest pain. No headache, no nausea, no vomiting. Review of Systems Review of Systems: All systems reviewed & are unremarkable except as noted in Subjective Physical Exam Physical Exam: Constitutional: No acute distress HEENT: EOMI, PERRLA Respiratory system: Decreased air entry bilaterally, more decreased on the left side, positive crackles bilateral lower lobes, no wheeze, no rhonchi CVS: S1-S2 positive, no murmurs or gallops Abdomen: Soft, nontender, nondistended, positive bowel sounds x4 Extremities: +2 pulses bilaterally radialis/ dorsalis pedis, no cyanosis, no edema Neuro: Awake alert oriented x3 Psych: Normal mood and affect G/U: No Rivas Skin: no rashes, warm and dry Lymphatic: no cervical or axillary lymphadenopathy Results & Data Results & Data ([facility]) Vital Signs (Past 12 Hours) Vital Signs Temp Pulse Resp BP Pulse Ox 10/01/20 14:58 36.5 C 95 H 20 112/72 96 10/01/20 11:06 36.6 C 96 H 20 132/78 95 10/01/20 11:04 95 H 20 94 10/01/20 07:11 36.7 C 93 H 20 116/76 96 10/01/20 05:39 105 H 22 95 10/01/20 06:43 10/01/20 06:43 PG Care Time/CCT Total # of Minutes Spent Total Time Spent with Patient: Total time spent is greater than 50% in coordination of care (as documented) at patient's floor/unit and/or counseling patient: Coding Level of Care Code 95805 Subseq Hosp Care Lvl 3 Diagnoses Hemoptysis R04.2 Supratherapeutic INR R79.1 Small cell lung 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 C34.90 Pneumonitis J18.9
[2020-10-01 16:41] LABS: Glucose Pleural Fluid 154 mg/dl
[2020-10-01 17:03] LABS: Albumin Level 2.5 gm/dl (3.4-5.0); Bilirubin,Total 0.7 mg/dl (0.2-1); Total Protein 5.3 gm/dl (6.4-8.2)
[2020-10-01 17:08] LABS: Amylase Pleural Fluid 11 U/L; LDH Pleural Fluid 104 U/L
[2020-10-01] MEDS: cefTRIAXone SODIUM 2,000 MG in DEXTROSE 5% 50 ML IV SCH (17:08)
--- NOTE | 2020-10-01 17:19 | Hospitalist Progress Note ---
Date of Service October 01, 2020 Assessment & Plan (1) LLL pneumonia: 75 M with history of small cell lung cancer preseted with shortness of breath and hemoptysis found to have progression on imaging of left lower lobe infiltrate and development of an effusion concerning for post obstructive pna given new nodule seen on prior CT (although only 5mm and peripheral) vs. malignant effusion in the setting of SCLC. Pneumonia would be considered hospital associated given recent admission. Given patient was supra therapeutic on warfarin PE is less likely. Left lower lobe infiltrate and effusion on CXR, neutrophil predominant leukocytosis, tachycardia, hemoptysis and worsening shortness of breath concerning for hospital associated PNA failed outpatient treatment with Levaquin Initially on Linezolid and Zosyn MRSA nasal screen is negative discontinue linezolid - consulted pulmonology commendations for diuresis and treating possible pneumonitis with prednisone will be undertaken no plans on thoracentesis at this time - given dose of vitamin K for supratherapeutic INR INR now 1.3 likely restart his anticoagulants cautiously voiding quinolone therapy in the future (2) Pleural effusion on left: seen on imaging, on side associated with new imaging concerning for metastatic cancer, pulmonary evaluation recommended diuresis and steroids patient feels these have begun to help work of breathing (3) Small cell lung 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: 01/31/2020. Chest x-ray. Large right infrahilar mass 02/22/2020. Chest CT. 6 cm right infrahilar mass. 04/03/2020. PET/CT. Intensely FDG avid 7 cm right lower lobe pulmonary mass. FDG avid right infracarinal lymph node, FDG avid nonpathologically enlarged right hilar node. 05/10/2022. Bronchoscopy with EBUS. Biopsies revealing small cell carcinoma. 08/30/2020. Status post completion of combined radiation and chemotherapy. He received 7000 cGy. Chemotherapy comprised of etoposide and cisplatin. (4) COPD (chronic obstructive pulmonary disease): remains on xopenex, montelukast, spiriva and alvesco (5) Atrial fibrillation: previously on full AC, rate controlled with metoprolol succinate 100mg restarting Coumadin on the evening of 10/01 (6) Anticoagulant long-term use: typically on warfarin 2, (7) Acute kidney failure: (8) Anemia: concern with hemoptysis, has previously had anemia of chronic disease (9) BPH (benign prostatic hyperplasia): continues on flomax no LUT symptoms (10) Schizophrenia: remains on haldol Admission and Anticipated Discharge Date Admission Date: September 30, 2020 Subjective Patient not having any additional hemoptysis today he says his breathing is about at his baseline. His INR is now reversed his magnesium is still subtherapeutic. I would like to have some increase in his INR replete his magnesium prior to him returning to [facility] also needed discussed with the [facility] care team if there is alternatives to his anticoagulant while there Review of Systems Review of Systems: lessening respiratory distress and moderate fatigue no headache, blurry or double vision no speech or swallowing issues no chest pain, pressure or palpitations less Tachypneic and dyspneic cough with hemoptysis no abdominal pain, nausea or vomiting, diarrhea or constipation no dysuria, hematuria or frequency no focal joint pain persistent lower extremity and arm swelling no back pain, CVA tenderness or radicular pain Patient has various bruising on his arms due to recent hospital stays in chronic use of anticoagulants no focal signs of weakness or numbness or altered sensation is globally very weak no complaints of anxiety or depression.. Physical Exam Physical Exam: The patient appeared chronically ill looks much older than his stated age Vital signs as documented. Head exam is normocephalic atraumatic no scleral icterus Neck is without JVD, thyromegaly, or carotid bruits. Lungs diminished bilaterally with poor air movement prolonged expiratory phase dullness at bilateral bases Cardiac exam, Rhythm is regular.. Systolic ejection murmur is heard Abdominal exam reveals normal bowel sounds, soft non tender, no masses Extremities are 1+ edematous both arms and legs Neurologic exam is alert and oriented, no focal loss of strength or sensation Skin is with bruises in various stages of healing Psychologically is without concerns for anxiety or depression Results & Data Results & Data ([facility]) Vital Signs (Past 12 Hours) Vital Signs Temp Pulse Resp BP Pulse Ox 10/01/20 14:58 97.7 F 95 H 20 112/72 96 10/01/20 11:06 97.9 F 96 H 20 132/78 95 10/01/20 11:04 95 H 20 94 10/01/20 07:11 98.1 F 93 H 20 116/76 96 10/01/20 05:39 105 H 22 95 PG Care Time/CCT Total # of Minutes Spent Total Time Spent with Patient: Total time spent is greater than 50% in coordination of care (as documented) at patient's floor/unit and/or counseling patient: Coding Level of Care Code 94419 Subseq Hosp Care Lvl 3 Diagnoses LLL pneumonia J18.9 Pneumonia type: due to unspecified organism Pleural effusion on left J90 Small cell lung 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 C34.90 COPD (chronic obstructive pulmonary disease) J44.9 Atrial fibrillation I48.0 Atrial fibrillation type: paroxysmal Anticoagulant long-term use Z79.01 Acute kidney failure N17.9 Anemia D64.9 Anemia type: unspecified type BPH (benign prostatic hyperplasia) N40.0 Schizophrenia F20.9 (1) LLL pneumonia Pneumonia type: due to unspecified organism Qualified Code(s): J18.9 - Pneumonia, unspecified organism (2) Atrial fibrillation Atrial fibrillation type: paroxysmal Qualified Code(s): I48.0 - Paroxysmal atrial fibrillation (3) Anemia Anemia type: unspecified type Qualified Code(s): D64.9 - Anemia, unspecified
[2020-10-01] MEDS ORDERED: WARFARIN SOD 2 MG TAB PO STA (18:03)
[2020-10-01 18:47] LABS: Appearance Pleural Fluid CLEAR; Basophils, Fluid 1 %; Color Pleural Fluid PALE YELLOW; Eosinophils, Fluid 1 %; Lymphocytes, Fluid 38 %; Mono,Macrophage,Mesothelial 49 %; Neutrophils, Fluid 11 %; RBC Pleural Fluid (A) < 3000 /uL; Source Pleural Fluid LEFT LUNG; WBC Pleural Fluid (A) 123 /uL
[2020-10-01] MEDS: ATORVASTATIN 20 MG TAB PO SCH (20:02)
[2020-10-01] MEDS: TAMSULOSIN HCL 0.4 MG CAP PO SCH (20:02)
[2020-10-02] MEDS: DOXYCYCLINE HYCLATE 100 MG in DEXTROSE 5% 100 ML IV SCH ×2 (02:19→13:50)
[2020-10-02 07:04] LABS: INR 1.3 (0.9-1.1); Prothrombin Time 13.3 Seconds (9.0-12.0)
[2020-10-02] MEDS: haloperidoL 1 MG TAB PO SCH ×2 (07:44→20:21)
[2020-10-02] MEDS: UMECLIDINIUM BROMIDE 62.5MCG/BLISTER 7 PUFFS/INHALER INH SCH (07:44)
[2020-10-02] MEDS: FLUTICASONE/VILANTEROL 100/25MCG 14 PUFFS/INHALER INH SCH (07:44)
[2020-10-02] MEDS: METOPROLOL SUCC 50MG EXT REL TAB PO SCH (07:44)
[2020-10-02] MEDS: predniSONE 20 MG TAB PO SCH (07:45)
[2020-10-02] MEDS: hydrOXYzine HCl 25 MG TAB PO SCH ×2 (07:45→20:20)
[2020-10-02] MEDS: MONTELUKAST SODIUM 10 MG TABLET PO SCH (07:45)
[2020-10-02] MEDS: MAGNESIUM OXIDE 400 MG TAB PO SCH (07:45)
[2020-10-02] MEDS: BENZTROPINE MESYLATE 1 MG TAB PO SCH (07:45)
[2020-10-02] MEDS: DOCUSATE SODIUM/SENNA 50/8.6MG TAB PO SCH (07:45)
[2020-10-02] MEDS: PANTOprazole 40 MG TAB PO SCH (07:46)
[2020-10-02] MEDS: Magic Swizzle w/Glycerin 240mL MT SCH ×4 (07:48→20:19)
--- NOTE | 2020-10-02 14:20 | Pulmonology Progress Note ---
Date of Service October 02, 2020 Assessment & Plan (1) Hemoptysis: --Hemoptysis Likely secondary to supratherapeutic INR Patient's hemoglobin has been stable Continue with antitussive medications --Left upper lobe pneumonia New compared to CAT scan done 09/19/2020 Continue with atypical coverage along with Rocephin for total of 5 days COVID-19 negative 09/30/2020, procalcitonin: 0.06 Influenza A/B negative The likelihood of atypical infection like PJP is low given the dense consolidative process and predominant left upper lobe affected. Pneumonitis from chemotherapy is a possibility. Continue with prednisone for the time being along with antibiotics --Pleural effusion Moderate left-sided S/p thoracentesis 10/01/2020, transudative as per lights criteria Pleural fluid:- LDH: 104, total protein 2, glucose 154, 38% lymphocytes Serum:- LDH 178, total protein 5.3 2D echo 09/19/2020: EF 55-60%, right ventricle normal in size and function --Severe COPD with emphysema Not in exacerbation Continue with Incruse DC Arnuity and start Breo Discharge the patient on Trelegy --Small cell cancer S/p chemo and radiation Chemotherapy with etoposide and cisplatin Plan: Transudative fluid. Follow-up cytology of the fluid. Continue with antitussive medication Decrease prednisone to 20 mg daily starting Wednesday and continue with it for 7 days followed by 10 mg for 7 days and then stop. H&H is stable. No plan for bronchoscopy. Continue with antibiotics for total of 5 days. Follow sputum culture. Please note the above document was generated using voice recognition software. It may contain grammatical, syntax or spelling errors.Any formal questions or concerns about the content, text or information contained within the body of this dictation should be directly addressed to the provider for clarification. (2) Supratherapeutic INR: (3) Small cell lung 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: (4) Pneumonitis: Admission and Anticipated Discharge Date Admission Date: September 30, 2020 Subjective Patient seen and examined at bedside. No acute distress, no adverse events overnight. Patient states that he is feeling better after thoracentesis. Shortness of breath is improved. Denies any chest pain. No headache, nausea, no vomiting. No hemoptysis. Review of Systems Review of Systems: All systems reviewed & are unremarkable except as noted in Subjective Physical Exam Physical Exam: Constitutional: No acute distress HEENT: EOMI, PERRLA Respiratory system: Decreased air entry bilaterally, positive crackles bilateral lower lobes, no wheeze, no rhonchi CVS: S1-S2 positive, no murmurs or gallops Abdomen: Soft, nontender, nondistended, positive bowel sounds x4 Extremities: +2 pulses bilaterally radialis/ dorsalis pedis, no cyanosis, no edema Neuro: Awake alert oriented x3 Psych: Normal mood and affect G/U: No Rivas Skin: no rashes, warm and dry Lymphatic: no cervical or axillary lymphadenopathy Results & Data Results & Data ([facility]) Vital Signs (Past 12 Hours) Vital Signs Temp Pulse Pulse Resp BP Pulse Ox 10/02/20 11:22 36.7 C 76 16 128/86 91 10/02/20 08:23 76 10/02/20 07:08 36.3 C L 53 L 16 119/86 92 10/02/20 04:20 36.4 C L 92 H 20 114/78 94 10/01/20 06:43 10/01/20 06:43 PG Care Time/CCT Total # of Minutes Spent Total Time Spent with Patient: Total time spent is greater than 50% in coordination of care (as documented) at patient's floor/unit and/or counseling patient: Coding Level of Care Code 21346 Subseq Hosp Care Lvl 3 Diagnoses Hemoptysis R04.2 Supratherapeutic INR R79.1 Small cell lung 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 C34.90 Pneumonitis J18.9
[2020-10-02] MEDS: WARFARIN SOD 2 MG TAB PO SCH (15:48)
[2020-10-02] MEDS: cefTRIAXone SODIUM 2,000 MG in DEXTROSE 5% 50 ML IV SCH (17:23)
--- NOTE | 2020-10-02 18:32 | Hospitalist Progress Note ---
Date of Service October 02, 2020 Assessment & Plan (1) LLL pneumonia: 75 M with history of small cell lung cancer preseted with shortness of breath and hemoptysis found to have progression on imaging of left lower lobe infiltrate and development of an effusion concerning for post obstructive pna given new nodule seen on prior CT (although only 5mm and peripheral) vs. malignant effusion in the setting of SCLC. Pneumonia would be considered hospital associated given recent admission. Given patient was supra therapeutic on warfarin PE is less likely. Left lower lobe infiltrate and effusion on CXR, neutrophil predominant leukocytosis, tachycardia, hemoptysis and worsening shortness of breath concerning for hospital associated PNA failed outpatient treatment with Levaquin Initially on Linezolid and Zosyn MRSA nasal screen is negative discontinue linezolid - consulted pulmonology commendations for diuresis and treating possible pneumonitis with prednisone will be undertaken no plans on thoracentesis at this time - given dose of vitamin K for supratherapeutic INR INRremains 1.3 restarted his anticoagulants cautiously avoiding quinolone therapy in the future (2) Pleural effusion on left: seen on imaging, on side associated with new imaging concerning for metastatic cancer, pulmonary evaluation performed thoracentesis, pt feels improved (3) Small cell lung 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: 01/31/2020. Chest x-ray. Large right infrahilar mass 02/22/2020. Chest CT. 6 cm right infrahilar mass. 04/03/2020. PET/CT. Intensely FDG avid 7 cm right lower lobe pulmonary mass. FDG avid right infracarinal lymph node, FDG avid nonpathologically enlarged right hilar node. 05/10/2022. Bronchoscopy with EBUS. Biopsies revealing small cell carcinoma. 08/30/2020. Status post completion of combined radiation and chemotherapy. He received 7000 cGy. Chemotherapy comprised of etoposide and cisplatin. (4) COPD (chronic obstructive pulmonary disease): remains on xopenex, montelukast, spiriva and alvesco (5) Atrial fibrillation: previously on full AC, rate controlled with metoprolol succinate 100mg restarting Coumadin on the evening of 10/01 (6) Anticoagulant long-term use: typically on warfarin 2, (7) Acute kidney failure: (8) Anemia: concern with hemoptysis, has previously had anemia of chronic disease (9) BPH (benign prostatic hyperplasia): continues on flomax no LUT symptoms (10) Schizophrenia: remains on haldol Admission and Anticipated Discharge Date Admission Date: September 30, 2020 Subjective Patient not having any additional hemoptysis He says his breathing is about at his baseline. [facility] will re evaluate in the am resuming coumadni as the only anticoagulant available [facility] the [facility] Review of Systems Review of Systems: lessening respiratory distress and moderate fatigue no headache, blurry or double vision no speech or swallowing issues no chest pain, pressure or palpitations less Tachypneic and dyspneic cough with hemoptysis no abdominal pain, nausea or vomiting, diarrhea or constipation no dysuria, hematuria or frequency no focal joint pain persistent lower extremity and arm swelling no back pain, CVA tenderness or radicular pain Patient has various bruising on his arms due to recent hospital stays in chronic use of anticoagulants no focal signs of weakness or numbness or altered sensation is globally very weak no complaints of anxiety or depression.. Physical Exam Physical Exam: The patient appeared chronically ill looks much older than his stated age Vital signs as documented. Head exam is normocephalic atraumatic no scleral icterus Neck is without JVD, thyromegaly, or carotid bruits. Lungs diminished bilaterally with poor air movement prolonged expiratory phase dullness at bilateral bases Cardiac exam, Rhythm is regular.. Systolic ejection murmur is heard Abdominal exam reveals normal bowel sounds, soft non tender, no masses Extremities are 1+ edematous both arms and legs Neurologic exam is alert and oriented, no focal loss of strength or sensation Skin is with bruises in various stages of healing Psychologically is without concerns for anxiety or depression Results & Data Results & Data ([facility]) Vital Signs (Past 12 Hours) Vital Signs Temp Pulse Pulse Resp BP Pulse Ox 10/02/20 15:54 81 10/02/20 15:21 98.1 F 78 19 123/73 97 10/02/20 11:22 98.1 F 76 16 128/86 91 10/02/20 08:23 76 10/02/20 07:08 97.3 F L 53 L 16 119/86 92 PG Care Time/CCT Total # of Minutes Spent Total Time Spent with Patient: Total time spent is greater than 50% in coordination of care (as documented) at patient's floor/unit and/or counseling patient: Coding Level of Care Code 41826 Subseq Hosp Care Lvl 3 Diagnoses LLL pneumonia J18.9 Pneumonia type: due to unspecified organism Pleural effusion on left J90 Small cell lung 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 C34.90 COPD (chronic obstructive pulmonary disease) J44.9 Atrial fibrillation I48.0 Atrial fibrillation type: paroxysmal Anticoagulant long-term use Z79.01 Acute kidney failure N17.9 Anemia D64.9 Anemia type: unspecified type BPH (benign prostatic hyperplasia) N40.0 Schizophrenia F20.9 (1) LLL pneumonia Pneumonia type: due to unspecified organism Qualified Code(s): J18.9 - Pneumonia, unspecified organism (2) Atrial fibrillation Atrial fibrillation type: paroxysmal Qualified Code(s): I48.0 - Paroxysmal atrial fibrillation (3) Anemia Anemia type: unspecified type Qualified Code(s): D64.9 - Anemia, unspecified
[2020-10-02] MEDS: TAMSULOSIN HCL 0.4 MG CAP PO SCH (20:21)
[2020-10-02] MEDS: ATORVASTATIN 20 MG TAB PO SCH (20:21)
[2020-10-03] MEDS: DOXYCYCLINE HYCLATE 100 MG in DEXTROSE 5% 100 ML IV SCH ×2 (02:31→14:51)
[2020-10-03 06:38] LABS: INR 1.5 (0.9-1.1); Prothrombin Time 14.3 Seconds (9.0-12.0)
[2020-10-03 06:56] LABS: BUN Creatinine Ratio 19.7 (10-20); Calcium 8.1 mg/dl (8.5-10.1); Creatinine Clr Calc Pharmacy 43.7 ml/min; Est GFR (African American) 47.7; Est GFR (Non-African American) 41.2; Potassium 3.7 mmol/L (3.5-5.1)
[2020-10-03] MEDS: Magic Swizzle w/Glycerin 240mL MT SCH ×4 (07:47→20:33)
[2020-10-03] MEDS: predniSONE 20 MG TAB PO SCH (07:48)
[2020-10-03] MEDS: FLUTICASONE/VILANTEROL 100/25MCG 14 PUFFS/INHALER INH SCH (07:48)
[2020-10-03] MEDS: haloperidoL 1 MG TAB PO SCH ×2 (07:48→20:31)
[2020-10-03] MEDS: MONTELUKAST SODIUM 10 MG TABLET PO SCH (07:48)
[2020-10-03] MEDS: MAGNESIUM OXIDE 400 MG TAB PO SCH (07:48)
[2020-10-03] MEDS: BENZTROPINE MESYLATE 1 MG TAB PO SCH (07:49)
[2020-10-03] MEDS: hydrOXYzine HCl 25 MG TAB PO SCH ×2 (07:49→20:31)
[2020-10-03] MEDS: DOCUSATE SODIUM/SENNA 50/8.6MG TAB PO SCH (07:49)
[2020-10-03] MEDS: METOPROLOL SUCC 50MG EXT REL TAB PO SCH (07:49)
[2020-10-03] MEDS: UMECLIDINIUM BROMIDE 62.5MCG/BLISTER 7 PUFFS/INHALER INH SCH (07:49)
[2020-10-03] MEDS: PANTOprazole 40 MG TAB PO SCH ×2 (07:49→20:31)
--- NOTE | 2020-10-03 08:19 | XRay Report ---
XR chest 1V portable HISTORY: Shortness of breath. Status post thoracentesis. Follow-up. COMPARISON: Chest 10/01/2020. FINDINGS: There is a left-sided dual-chamber pacemaker. No pneumothorax. Emphysema is again noted. Th e heart is normal in size. Small left pleural effusion persists. Slight progression of the left mid t o lower lung zone airspace opacity. This likely represents a pneumonia. The patient's known right inf rahilar masses not well visualized. IMPRESSION: 1. No change in the small left pleural effusion. No pneumothorax. 2. Slight progression of the left mid to lower lung zone airspace opacity. This likely represents a p neumonia. ACT 112: Negative or not required by law. Electronically signed by: Layton Dominguez M.D. 10/03/2020 8:18 AM
--- NOTE | 2020-10-03 12:16 | Pulmonology Progress Note ---
Date of Service October 03, 2020 Assessment & Plan (1) Hemoptysis: --Hemoptysis Likely secondary to supratherapeutic INR Patient's hemoglobin has been stable Continue with antitussive medications --Left upper lobe pneumonia New compared to CAT scan done 09/19/2020 Continue with atypical coverage along with Rocephin for total of 5 days COVID-19 negative 09/30/2020, procalcitonin: 0.06 Influenza A/B negative The likelihood of atypical infection like PJP is low given the dense consolidative process and predominant left upper lobe affected. Pneumonitis from chemotherapy is a possibility. Continue with prednisone for the time being along with antibiotics Sputum culture is negative to date. --Pleural effusion Moderate left-sided S/p thoracentesis 10/01/2020, transudative as per lights criteria Pleural fluid:- LDH: 104, total protein 2, glucose 154, 38% lymphocytes Serum:- LDH 178, total protein 5.3 2D echo 09/19/2020: EF 55-60%, right ventricle normal in size and function --Severe COPD with emphysema Not in exacerbation Continue with Incruse DC Arnuity and start Breo Discharge the patient on Trelegy --Small cell cancer S/p chemo and radiation Chemotherapy with etoposide and cisplatin Plan: Chest x-ray from today still shows consolidative process on the left side. The pleural effusion is significantly improved after thoracentesis. Continue with antibiotics for total of [address] chest in 8 weeks to confirm resolution of pneumonia. Transudative fluid. Cytology is negative for malignancy. Continue with antitussive medication Decrease prednisone to 20 mg daily starting Wednesday and continue with it for 7 days followed by 10 mg for 7 days and then stop. Patient's hemoglobin is stable. No further recommendation from pulmonary perspective. Will sign off. Recall if needed. Please note the above document was generated using voice recognition software. It may contain grammatical, syntax or spelling errors.Any formal questions or concerns about the content, text or information contained within the body of this dictation should be directly addressed to the provider for clarification. (2) Supratherapeutic INR: (3) Small cell lung 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: (4) Pneumonitis: Admission and Anticipated Discharge Date Admission Date: September 30, 2020 Subjective Patient seen and examined at bedside. No acute distress, no adverse events overnight. Patient states that his shortness of breath is improved. Denies any hemoptysis for more than 3 days. Did complain of mild chest pain today. No nausea or vomiting. Good appetite. Review of Systems Review of Systems: All systems reviewed & are unremarkable except as noted in Subjective Physical Exam Physical Exam: Constitutional: No acute distress HEENT: EOMI, PERRLA Respiratory system: Decreased air entry bilaterally, positive crackles bilateral lower lobes, no wheeze, no rhonchi CVS: S1-S2 positive, no murmurs or gallops Abdomen: Soft, nontender, nondistended, positive bowel sounds x4 Extremities: +2 pulses bilaterally radialis/ dorsalis pedis, no cyanosis, no edema Neuro: Awake alert oriented x3 Psych: Normal mood and affect G/U: No Rivas Skin: no rashes, warm and dry Lymphatic: no cervical or axillary lymphadenopathy Results & Data Results & Data ([facility]) Vital Signs (Past 12 Hours) Vital Signs Temp Pulse Pulse Resp BP BP Pulse Ox 10/03/20 11:37 36.7 C 90 20 130/93 98 10/03/20 11:07 36.5 C 95 H 20 123/89 113/82 92 10/03/20 07:30 105 H 10/03/20 07:19 36.5 C 95 H 20 123/89 92 10/03/20 04:38 36.6 C 92 H 18 111/75 91 10/03/20 05:45 10/03/20 05:35 PG Care Time/CCT Total # of Minutes Spent Total Time Spent with Patient: Total time spent is greater than 50% in coordination of care (as documented) at patient's floor/unit and/or counseling patient: Coding Level of Care Code 21500 Subseq Hosp Care Lvl 3 Diagnoses Hemoptysis R04.2 Supratherapeutic INR R79.1 Small cell lung 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 C34.90 Pneumonitis J18.9
[2020-10-03 12:34] LABS: Hematocrit (blood only) 26.5 % (42-52); Hemoglobin 9.1 g/dL (14.0-18.0); Mean Corpuscular Hemoglobin 31.3 pg (25-34); Mean Corpuscular Hgb Conc 34.3 g/dL (32-36); Mean Corpuscular Volume 91.1 fL (80-100); Mean Platelet Volume 8.9 fL (7.4-10.4); Platelet Count 513 K/uL (130-400); RDW Coefficient of Variation 17.3 % (11.5-14.5); RDW Standard Deviation 57.3 fL (36.4-46.3); Red Blood Count 2.91 M/uL (4.7-6.1); White Blood Count 17.23 K/uL (4.8-10.8)
[2020-10-03 13:03] LABS: Basophils # (auto) 0.06 K/uL (0-0.2); Basophils % (auto) 0.3 %; Eosinophils # (auto) 0.06 K/uL (0-0.5); Eosinophils % (auto) 0.3 %; Immature Granulocytes # (auto) 0.07 K/uL (0.00-0.02); Immature Granulocytes % (auto) 0.4 %; Lymphocytes # (auto) 2.36 K/uL (1.2-3.4); Lymphocytes % (auto) 13.7 %; Monocytes # (auto) 1.24 K/uL (0.11-0.59); Monocytes % (auto) 7.2 %; Neutrophils # (auto) 13.44 K/uL (1.4-6.5); Neutrophils % (auto) 78.1 %
[2020-10-03] MEDS ORDERED: NITROGLYCERIN SL 0.4 MG/TAB TAB SL STA ×2 (14:26→14:27)
[2020-10-03] MEDS ORDERED: NITROGLYCERIN SL 0.4 MG/TAB TAB SL PRN (14:26)
--- NOTE | 2020-10-03 15:50 | Hospitalist Progress Note ---
Date of Service October 03, 2020 Assessment & Plan (1) Chest pain: Patient is description of chest pain does not make me believe this is cardiac as it is reproducible and pleuritic. Patient is on prednisone which could create some esophageal discomfort. On examination he does not have any reproducible sternocleido points of tenderness. I did speak to the skilled nursing physician we will keep the patient for another 24 hours getting serial enzymes and an echocardiogram (2) LLL pneumonia: 75 M with history of small cell lung cancer preseted with shortness of breath and hemoptysis found to have progression on imaging of left lower lobe infiltrate and development of an effusion concerning for post obstructive pna given new nodule seen on prior CT (although only 5mm and peripheral) vs. malignant effusion in the setting of SCLC. Pneumonia would be considered hospital associated given recent admission. Given patient was supra therapeutic on warfarin PE is less likely. Left lower lobe infiltrate and effusion on CXR, neutrophil predominant leuko cytosis, tachycardia, hemoptysis and worsening shortness of breath concerning for hospital associated PNA failed outpatient treatment with Levaquin Initially on Linezolid and Zosyn MRSA nasal screen is negative discontinue linezolid - consulted pulmonology commendations for 10 additional days of antibiotics, and CT chest in 8 weeks and follow up with outpt pulmonay medicine (3) Pleural effusion on left: seen on imaging, on side associated with new imaging concerning for metastatic cancer, pulmonary evaluation performed thoracentesis, exudative numbers pt feels improved cxr reviewed from am 10/03/20 without significant changes except for drainage of effusion, still left mid and lower lung zone opacity (4) Small cell lung 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: 01/31/2020. Chest x-ray. Large right infrahilar mass 02/22/2020. Chest CT. 6 cm right infrahilar mass. 04/03/2020. PET/CT. Intensely FDG avid 7 cm right lower lobe pulmonary mass. FDG avid right infracarinal lymph node, FDG avid nonpathologically enlarged right hilar node. 05/10/2022. Bronchoscopy with EBUS. Biopsies revealing small cell carcinoma. 08/30/2020. Status post completion of combined radiation and chemotherapy. He received 7000 cGy. Chemotherapy comprised of etoposide and cisplatin. (5) COPD (chronic obstructive pulmonary disease): remains on xopenex, montelukast, spiriva and alvesco (6) Atrial fibrillation: previously on full AC, rate controlled with metoprolol succinate 100mg restarting Coumadin on the evening of 10/01 (7) Anticoagulant long-term use: typically on warfarin 2, (8) Acute kidney failure: (9) Anemia: concern with hemoptysis, has previously had anemia of chronic disease, no further hemoptysis, hgb is stable (10) BPH (benign prostatic hyperplasia): continues on flomax no LUT symptoms (11) Schizophrenia: remains on haldol Admission and Anticipated Discharge Date Admission Date: September 30, 2020 Subjective Pt was going to be discharged on antibiotics and prednisone, but developed chest pain after being loaded in WC, the pt states is pleuritic and reproducible, ECG does not show any acute changes, I spoke to skilled nursing doctor and he would feel most comfortable with additional time to eval enzymes , ecg and echo pt is not sure nitro made any changes Review of Systems Review of Systems: pt states he is at his baseline sob and weakness but developed sscp that was pleuritic and reproducible no headache, blurry or double vision no speech or swallowing issues sscp chest pain, pleuritic and reproducible less Tachypneic and dyspneic cough with out hemoptysis no abdominal pain, nausea or vomiting, diarrhea or constipation no dysuria, hematuria or frequency no focal joint pain persistent lower extremity and arm swelling no back pain, CVA tenderness or radicular pain no focal signs of weakness or numbness or altered sensation is globally very weak no complaints of anxiety or depression.. Physical Exam Physical Exam: The patient appeared chronically ill looks much older than his stated age Vital signs as documented. Head exam is normocephalic atraumatic no scleral icterus Neck is without JVD, thyromegaly, or carotid bruits. Lungs diminished bilaterally with poor air movement prolonged expiratory phase dullness at bilateral bases Cardiac exam, Rhythm is regular.. Systolic ejection murmur is heard Abdominal exam reveals normal bowel sounds, soft non tender, no masses Extremities are 1+ edematous both arms and legs Neurologic exam is alert and oriented, no focal loss of strength or sensation Skin is with bruises in various stages of healing Psychologically is without concerns for anxiety or depression Results & Data Results & Data ([facility]) Vital Signs (Past 12 Hours) Vital Signs Temp Pulse Pulse Resp BP BP Pulse Ox 10/03/20 14:01 94 H 18 108/72 92 10/03/20 11:37 98.1 F 90 20 130/93 98 10/03/20 11:07 97.7 F 95 H 20 123/89 113/82 92 10/03/20 07:30 105 H 10/03/20 07:19 97.7 F 95 H 20 123/89 92 10/03/20 04:38 97.9 F 92 H 18 111/75 91 stat EKG was performed 10/03/2020 at the time of chest pain no acute current of injury was seen, patient is in atrial fibrillation as per his history PG Care Time/CCT Total # of Minutes Spent Total Time Spent with Patient: Total time spent is greater than 50% in coordination of care (as documented) at patient's floor/unit and/or counseling patient: Coding Level of Care Code 22237 Subseq Hosp Care Lvl 3 Diagnoses Chest pain R07.9 LLL pneumonia J18.9 Pneumonia type: due to unspecified organism Pleural effusion on left J90 Small cell lung 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 C34.90 COPD (chronic obstructive pulmonary disease) J44.9 Atrial fibrillation I48.0 Atrial fibrillation type: paroxysmal Anticoagulant long-term use Z79.01 Acute kidney failure N17.9 Anemia D64.9 Anemia type: unspecified type BPH (benign prostatic hyperplasia) N40.0 Schizophrenia F20.9 (1) Anemia Anemia type: unspecified type Qualified Code(s): D64.9 - Anemia, unspecified (2) Atrial fibrillation Atrial fibrillation type: paroxysmal Qualified Code(s): I48.0 - Paroxysmal atrial fibrillation (3) LLL pneumonia Pneumonia type: due to unspecified organism Qualified Code(s): J18.9 - Pneumonia, unspecified organism
--- NOTE | 2020-10-03 16:08 | XCELERA ---
[id number]
[2020-10-03] MEDS: WARFARIN SOD 2 MG TAB PO SCH (16:15)
--- NOTE | 2020-10-03 16:58 | Electrocardiogram Report ---
Test Reason : Blood Pressure : / mmHG Vent. Rate : 093 BPM Atrial Rate : 100 BPM P-R Int : 000 ms QRS Dur : 102 ms QT Int : 356 ms P-R-T Axes : 000 024 007 degrees QTc Int : 442 ms Atrial fibrillation with occasional ventricular-paced complexes Low voltage QRS Abnormal ECG When compared with ECG of 30-SEP-2020 00:13, Electronic ventricular pacemaker has replaced Atrial fibrillation Confirmed by Quinn Tomas ([id number]) on 10/03/2020 4:57:52 PM Referred By: REFERRED SELF Confirmed By:Erwin Tomas
[2020-10-03] MEDS: ATORVASTATIN 20 MG TAB PO SCH (20:31)
[2020-10-03] MEDS: TAMSULOSIN HCL 0.4 MG CAP PO SCH (20:31)
[2020-10-03] MEDS: DOXYCYCLINE HYCLATE 100 MG CAP PO SCH (20:31)
[2020-10-03] MEDS: CEFDINIR 300 MG CAP PO SCH (20:31)
[2020-10-03] MEDS: DICLOFENAC SOD 1% GEL 100 GM TUBE EXT SCH (20:32)
--- NOTE | 2020-10-03 23:41 | Billing Data ---
Date of Service October 03, 2020 Coding Level of Care Code 16334 Initial Inpt Care Lvl 3
[2020-10-04 07:11] LABS: Hematocrit (blood only) 25.8 % (42-52); Mean Corpuscular Hemoglobin 31.6 pg (25-34); Mean Corpuscular Hgb Conc 34.9 g/dL (32-36); Mean Corpuscular Volume 90.5 fL (80-100); Mean Platelet Volume 8.4 fL (7.4-10.4); Platelet Count 441 K/uL (130-400); RDW Coefficient of Variation 17.5 % (11.5-14.5); RDW Standard Deviation 57.9 fL (36.4-46.3); Red Blood Count 2.85 M/uL (4.7-6.1); White Blood Count 17.27 K/uL (4.8-10.8)
[2020-10-04 07:27] LABS: BUN Creatinine Ratio 21.7 (10-20); Blood Urea Nitrogen 35 mg/dl (7-18); Calcium 8.4 mg/dl (8.5-10.1); Carbon Dioxide 28 mmol/L (21-32); Chloride 105 mmol/L (98-107); Creatinine Clr Calc Pharmacy 43.7 ml/min; Est GFR (African American) 47.7; Est GFR (Non-African American) 41.2; Glucose 87 mg/dl (70-99); Potassium 3.8 mmol/L (3.5-5.1); Sodium 138 mmol/L (136-145)
[2020-10-04 07:32] LABS: Troponin I < 0.015 ng/ml (0-0.045)
[2020-10-04] MEDS: DOCUSATE SODIUM/SENNA 50/8.6MG TAB PO SCH (07:52)
[2020-10-04] MEDS: predniSONE 20 MG TAB PO SCH (07:53)
[2020-10-04] MEDS: MAGNESIUM OXIDE 400 MG TAB PO SCH (07:53)
[2020-10-04] MEDS: PANTOprazole 40 MG TAB PO SCH (07:53)
[2020-10-04] MEDS: METOPROLOL SUCC 50MG EXT REL TAB PO SCH (07:54)
[2020-10-04] MEDS: MONTELUKAST SODIUM 10 MG TABLET PO SCH (07:54)
[2020-10-04] MEDS: BENZTROPINE MESYLATE 1 MG TAB PO SCH (07:54)
[2020-10-04] MEDS: CEFDINIR 300 MG CAP PO SCH (07:54)
[2020-10-04] MEDS: hydrOXYzine HCl 25 MG TAB PO SCH (07:54)
[2020-10-04] MEDS: DOXYCYCLINE HYCLATE 100 MG CAP PO SCH (07:55)
[2020-10-04] MEDS: haloperidoL 1 MG TAB PO SCH (07:55)
[2020-10-04] MEDS: FLUTICASONE/VILANTEROL 100/25MCG 14 PUFFS/INHALER INH SCH (07:56)
[2020-10-04] MEDS: DICLOFENAC SOD 1% GEL 100 GM TUBE EXT SCH ×2 (07:56→14:27)
[2020-10-04] MEDS: UMECLIDINIUM BROMIDE 62.5MCG/BLISTER 7 PUFFS/INHALER INH SCH (07:56)
[2020-10-04] MEDS: Magic Swizzle w/Glycerin 240mL MT SCH ×2 (07:59→11:59)
[2020-10-04 11:42] VITALS: PULSE 104; TEMP 98.4; O2SAT 95
[2020-10-04 13:54] VITALS: BP 113/82
--- NOTE | 2020-10-05 07:06 | Discharge Summary ---
Date of Service October 04, 2020 Admission HPI Per Admitting Provider Mr. Quinn Nichols is here for shortness of breath. He has a past medical history of schizophrenia, dementia, COPD, SCLC, HLD, CKDII, GERD, A. fib, prior DVT. He was spitting up blood on two occasions about 2 tablespoons each time starting at 8:30 PM 09/29 and had associated cough and shortness of breath. He is normally on 5L at the facility and is currently on 4 L saturating well. He denies any Melena. He states that he does not have any trouble swallowing food and hasn't choked on anything. He was recently discharged from the hospital on the , admitted for A. fib with RVR. He was then seen on the in the ER for Left lower lobe pneumonia and prescribed Levaquin and discharged. ED course: 1gm Magnesium Principal Diagnosis pneumonia exudative pleural effusion radiation pneumonitis metastatic small cell lung cancer COPD Discharge Exam The patient appeared chronically ill and short of breath, on chronic oxygen supplementation Vital signs as documented. Lungs are coarse, and dyspneic on exertion Cardiac exam, Rhythm is regular.. No murmurs, rubs or gallops cardiac workup is negative. Abdominal exam reveals normal bowel sounds, soft non tender, no masses Extremities are mildly edematous and both pedal pulses are normal. Neurologic exam is alert and oriented, no focal loss of strength or sensation Skin is without bruises or rashes Discharge Data Allergies Allergy/AdvReac Type Severity Reaction Status Date / Time No Known Allergies Allergy Verified 09/30/20 01:37 Consultations 09/30/20 01:29 ED Decision to Admit Stat 09/30/20 05:09 Consult Pulmonology Routine Ordered Studies 09/30/20 05:09 CT chest diagnostic wo con Urgent 10/01/20 14:07 US point of care ultrasound Urgent Hospital Course (1) Chest pain: Patient is description of chest pain on 10/03/20 does not make me believe this is cardiac as it is reproducible and pleuritic. Patient is on prednisone which could create some esophageal discomfort. I did speak to the care home physician 10/04/20 after serial enzymes are not e levated, no further symptoms and an echocardiogram does not reveal significant EF reduction or RWMA (2) LLL pneumonia: 75 M with history of small cell lung cancer preseted with shortness of breath and hemoptysis found to have progression on imaging of left lower lobe infiltrate and development of an effusion concerning for post obstructive pna given new nodule seen on prior CT (although only 5mm and peripheral) vs. malignant effusion in the setting of SCLC. Pneumonia would be considered hospital associated given recent admission. Given patient was supra therapeutic on warfarin PE is less likely. Left lower lobe infiltrate and effusion on CXR, neutrophil predominant leukocytosis, tachycardia, hemoptysis and worsening shortness of breath concerning for hospital associated PNA failed outpatient treatment with Levaquin Initially on Linezolid and Zosyn MRSA nasal screen is negative discontinue linezolid - consulted pulmonology commendations for 10 additional days of antibiotics, and CT chest in 8 weeks and follow up with outpt pulmonay medicine (3) Pleural effusion on left: seen on imaging, on side associated with new imaging concerning for metastatic cancer, pulmonary evaluation performed thoracentesis, exudative numbers pt feels improved cxr reviewed from am 10/03/20 without significant changes except for drainage of effusion, still left mid and lower lung zone opacity (4) Small cell lung 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: 01/31/2020. Chest x-ray. Large right infrahilar mass 02/22/2020. Chest CT. 6 cm right infrahilar mass. 04/03/2020. PET/CT. Intensely FDG avid 7 cm right lower lobe pulmonary mass. FDG avid right infracarinal lymph node, FDG avid nonpathologically enlarged right hilar node. 05/10/2022. Bronchoscopy with EBUS. Biopsies revealing small cell carcinoma. 08/30/2020. Status post completion of combined radiation and chemotherapy. He received 7000 cGy. Chemotherapy comprised of etoposide and cisplatin. (5) COPD (chronic obstructive pulmonary disease): remains on xopenex, montelukast, spiriva and alvesco (6) Atrial fibrillation: previously on full AC, rate controlled with metoprolol succinate 100mg restarting Coumadin on the evening of 10/01 (7) Anticoagulant long-term use: typically on warfarin 2, (8) Acute kidney failure: (9) Anemia: concern with hemoptysis, has previously had anemia of chronic disease, no further hemoptysis, hgb is stable (10) BPH (benign prostatic hyperplasia): continues on flomax no LUT symptoms (11) Schizophrenia: remains on haldol Total Time Total Time Spent Total Time Spent (In Minutes): It required greater than 30 minutes to prepare this patient for discharge Discharge Plan Discharge Items [facility] Reason For Visit: HAP Discharge Diagnosis: healthcare associated pneumonia acute on chronic respiratory failure with hypoxia radiation pneumonitis metastatic small cell carcinoma of lung Activity: Resume your previous activity Non-emergency contact: Primary Care Provider and [employer] Supervisor Call non-emergency contact if: you have any medication questions, your symptoms worsen and your temperature is above 101.5 Follow-up/Referrals: Luis Miguel OLGUIN [Primary Care Provider] - Diet: Regular Addtl Attending Provider Instructions: you should not have intentional exercise until you complete your antibiotics consider making follow up with pulmonary medicine, 4-[address] Scan of chest without contrast complete long slow taper of prednisone Pending Studies at Discharge: No Stand-Alone Forms: My [facility] Skilled Items Patient informed of condition?: Yes Discharge Level of Care: Other Communicable Disease: No Discharge Prognosis: Stable Lines: None Urinary Catheter: No Medications and DC Order Prescriptions: New prednisone 10 mg tablet 10 mg PO UD Qty: 160 RF: 0 doxycycline hyclate 100 mg capsule 100 mg PO BID 10 Days Qty: 20 RF: 0 cefdinir 300 mg capsule 300 mg PO BID 10 Days Qty: 20 RF: 0 Continued atorvastatin 20 mg Tablet 20 mg PO HS RF: 0 haloperidol 1 mg Tablet 1 mg PO BID RF: 0 tamsulosin 0.4 mg Capsule 0.4 mg PO HS RF: 0 benztropine 1 mg Tablet 1 mg PO QAM RF: 0 montelukast 10 mg Tablet 10 mg PO QAM RF: 0 hydroxyzine HCl 25 mg Tablet 25 mg PO BID RF: 0 haloperidol 2 mg Tablet 2 mg PO BID RF: 0 Spiriva with HandiHaler 18 mcg Capsule, W/Inhalation Device 1 cap INHALATION QAM RF: 0 levalbuterol tartrate [Xopenex HFA] 45 mcg/actuation Hfa Aerosol Inhaler 2 inh INHALATION QID PRN (Reason: Shortness Of Breath) RF: 0 Senna Plus 8.6-50 mg Capsule 2 tab-cap PO QAM RF: 0 warfarin 2 mg Tablet 2 mg PO DAILY RF: 0 Magic Swizzle 1 dose PO ACHS RF: 0 metoprolol succinate 100 mg tablet extended release 24 hr 100 mg PO DAILY Qty: 10 RF: 0 magnesium oxide 400 mg (241.3 mg magnesium) Tablet 800 mg PO QAM Qty: 14 RF: 0 potassium chloride 10 mEq capsule, extended release 20 meq PO DAILY Qty: 14 RF: 0 Alvesco 160 mcg/actuation Hfa Aerosol Inhaler 1 puff INHALATION BID RF: 0 Changed omeprazole 40 mg Capsule,Delayed Release(Dr/Ec) 40 mg PO BID Qty: 0 RF: 0 Discontinued levofloxacin 500 mg tablet 500 mg PO DAILY 10 Days Qty: 10 RF: 0 Discharge Orders: Discharge Order (Routine); Ordered 10/04/20 Ordered By: David Chacko Admission Data Admit Date/Time: 09/30/20 03:06 Attending Provider: David Chacko Admit Provider: Eduardo Yip Primary Care Provider: Luis Miguel OLGUIN Other Providers: Jace Witt Vyacheslav Other Interventions: Discharge Summary Assessment (RN) Last Done: 10/04/20 13:53 Coding Level of Care Code D/C Day Management >30 mins Diagnoses Chest pain R07.9 LLL pneumonia J18.9 Pneumonia type: due to unspecified organism Pleural effusion on left J90 Small cell lung 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 C34.90 COPD (chronic obstructive pulmonary disease) J44.9 Atrial fibrillation I48.0 Atrial fibrillation type: paroxysmal Anticoagulant long-term use Z79.01 Acute kidney failure N17.9 Anemia D64.9 Anemia type: unspecified type BPH (benign prostatic hyperplasia) N40.0 Schizophrenia F20.9
== END 2020-10-04 15:52 | DRG 193 ==
LOC: ED 00:08 → SUATTDRO 03:06 → 2N 03:06

== ENCOUNTER 2020-11-17 12:19 | Inpatient (IN) ==
[~2020-11-17 12:19] MED LIST: ETOMIDATE 2 MG/ML 20 ML VIAL IV ONE; ROCURONIUM BROMIDE 10 MG/ML 5 ML VIAL IV ONE
[2020-11-17] MEDS ORDERED: dilTIAZem HCl 5 MG/ML 5 ML VIAL IV ONE (12:30)
[2020-11-17] MEDS ORDERED: ETOMIDATE 2 MG/ML 20 ML VIAL IV ONE ×3 (12:36→12:50)
[2020-11-17] MEDS ORDERED: PIPERACILLIN/TAZOBACTAM 4.5 GM/120 ML BAG IV ONE (12:46)
[2020-11-17] MEDS ORDERED: AMIODARONE 150MG / 100ML D5W IV ONE (12:47)
[2020-11-17] MEDS ORDERED: AMIODARONE / D5W 150 MG/100 ML BAG IV ONE (13:00)
--- NOTE | 2020-11-17 13:00 | XRay Report ---
XR chest 1V portable CLINICAL HISTORY: Chest Pain. Lung cancer. COMPARISON STUDY: Chest CT September 30, 2020. Chest radiograph October 03, 2020. FINDINGS: Dual lead left subclavian pacemaker is in place. Dense right upper lobe consolidation has d eveloped. Right lower lobe mass is better depicted on prior chest CT. Left upper lobe airspace opacit y is developed. Left lower lobe airspace opacity has improved. There is a small right pleural effusio n. There is no pneumothorax. There is underlying emphysema. IMPRESSION: 1. Interval development of dense right upper lobe consolidation and additional bilateral airspace opa cities consistent with multifocal pneumonia. Radiographic follow up to ensure resolution is recommend ed. Right lower lobe mass obscured by airspace opacity. 2. Small right pleural effusion. 3. Emphysema. ACT 112: Negative or not required by law. Electronically signed by: Bakari Trevino M.D. 11/17/2020 12:59 PM
[2020-11-17 13:01] LABS: iSTAT Creatinine 1.4 mg/dl (0.6-1.3); iSTAT Hemoglobin 10.5 g/dl (14.0-18.0); iSTAT Ionized Calcium 1.16 mmol/l (1.12-1.32); iSTAT Potassium 4.2 mmol/L (3.3-5.0)
[2020-11-17 13:02] LABS: Base Excess VBG 3.8 mEq/L; HCO3 VBG 30 mmol/L; PCO2 VBG 54 mmHg (38-50); PO2 VBG 14 mmHg; pH VBG 7.36 (7.36-7.41)
[2020-11-17 13:03] LABS: Oxygen Saturation VBG < 60.0 %
[2020-11-17] MEDS ORDERED: VANCOMYCIN HCL 1,750 MG in SODIUM CHLORIDE 0.9% 500 ML IV ONE (13:03)
[2020-11-17] MEDS ORDERED: VANCOMYCIN CONSULT ACTIVE PRN (13:03)
[2020-11-17] MEDS ORDERED: 0.2 MICRON FILTER SET 1 EA IV ONE (13:15)
[2020-11-17 13:24] LABS: BUN Creatinine Ratio 23.3 (10-20); Calcium 8.3 mg/dl (8.5-10.1); Est GFR (African American) 55.9; Est GFR (Non-African American) 48.2; Magnesium 1.5 mg/dl (1.8-2.4); Potassium 4.4 mmol/L (3.5-5.1)
[2020-11-17] MEDS ORDERED: MAGNESIUM SULFATE / D5W 1 GM/100 ML BAG IV STA ×2 (13:25→14:53)
[2020-11-17 13:29] LABS: Troponin I 0.029 ng/ml (0-0.045)
[2020-11-17 13:32] LABS: Hematocrit (blood only) 31.5 % (42-52); Hemoglobin 10.8 g/dL (14.0-18.0); Immature Granulocytes # (auto) 0.04 K/uL (0.00-0.02); Immature Granulocytes % (auto) 0.3 %; Lymphocytes # (auto) 0.65 K/uL (1.2-3.4); Lymphocytes % (auto) 4.2 %; Mean Corpuscular Hemoglobin 34.7 pg (25-34); Mean Corpuscular Hgb Conc 34.3 g/dL (32-36); Mean Corpuscular Volume 101.3 fL (80-100); Mean Platelet Volume 9.8 fL (7.4-10.4); Monocytes # (auto) 0.15 K/uL (0.11-0.59); Neutrophils # (auto) 14.75 K/uL (1.4-6.5); Neutrophils % (auto) 94.5 %; Nucleated RBC # (auto) 0.03 K/uL (0-0); Nucleated RBC % (auto) 0.2 %; Platelet Count 219 K/uL (130-400); RDW Standard Deviation 56.5 fL (36.4-46.3); Red Blood Count 3.11 M/uL (4.7-6.1); White Blood Count 15.59 K/uL (4.8-10.8)
[2020-11-17] MEDS: AMIODARONE / D5W 360 MG/200 ML BAG IV SCH ×3 (13:43→19:37)
[2020-11-17 14:13] LABS: Partial Thromboplastin Ratio 1.7; Partial Thromboplastin Time 44.5 Seconds (21.0-31.0); Prothrombin Time 49.3 Seconds (9.0-12.0)
--- NOTE | 2020-11-17 14:14 | Emergency Department Note ---
History of Present Illness General Chief complaint: Shortness of Breath/Dyspnea Time Seen by Provider: 11/17/20 12:24 Source: EMS Mode of arrival: EMS History of Present Illness Provider complaint: Shortness of breath Onset (ago): day(s) 1 Associated symptoms: + cough and + shortness of breath; no chest pain and no nausea/vomiting 75-year-old male prisoner presents emergency department for shortness of breath. Shortness of breath has been off for the last few days. Patient does have a history of A. fib RVR and is on Coumadin. Patient was brought in via EMS. Per EMS the patient was in A. fib RVR. EMS administered Cardizem 20 mg IV push for the A. fib RVR prior to arrival. Patient is a full code. Home Medications Medication Instructions Recorded Confirmed Type Senna Plus 2 tab-cap PO QAM 05/09/20 11/17/20 History atorvastatin 20 mg PO HS 05/09/20 11/17/20 History benztropine 1 mg PO QAM 05/09/20 11/17/20 History haloperidol 1 mg PO BID 05/09/20 11/17/20 History haloperidol 2 mg PO BID 05/09/20 11/17/20 History hydroxyzine HCl 25 mg PO BID 05/09/20 11/17/20 History levalbuterol tartrate [Xopenex HFA] 2 inh INHALATION QID PRN 05/09/20 11/17/20 History montelukast 10 mg PO QAM 05/09/20 11/17/20 History tamsulosin 0.4 mg PO HS 05/09/20 11/17/20 History warfarin 2 mg PO DAILY 09/19/20 11/17/20 History metoprolol succinate 100 mg PO DAILY #10 tab 09/23/20 11/17/20 Rx potassium chloride 20 meq PO DAILY #14 cap 09/24/20 09/30/20 Rx Alvesco 1 puff INHALATION BID 09/30/20 11/17/20 History omeprazole 40 mg PO BID #0 cap 10/03/20 11/17/20 Rx prednisone 10 mg PO UD #160 tab 10/03/20 11/17/20 Rx ipratropium-albuterol [DuoNeb] 3 ml INHALATION Q4H 11/17/20 11/17/20 History Allergies Allergy/AdvReac Type Severity Reaction Status Date / Time No Known Allergies Allergy Verified 09/30/20 01:37 Past Med/Surg History Medical History Anxiety Atrial fibrillation ANTICOAGULATED WITH COUMADIN Chronic obstructive pulmonary disease CKD (chronic kidney disease) stage 2, GFR 60-89 ml/min Hyperlipidemia Hypertension Inmate in correctional facility Nocturia Phlebitis DEEP LOWER EXTREMITY. 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 Has followed with Dr. Calle. Social History Smoking Status: Unknown if ever smoked Tobacco Type: Cigarettes Age Started Using Tobacco: 11; Age Quit Using Tobacco: 55; packs per day: 1; Years Smoked: 44; Cigarettes Per Day: 20; Number of Years Since Quit: 20; Second Hand Exposure: No; Hx Alcohol Use: No Hx Substance Use: No Preferred Language: Panamanian Communication Ability: Effective Visual Impairment: No Limitations Hearing Ability: Normal Checkerer Hand Required: No Beliefs That Will Affect Care: None marital status: Single Current Living Situation: Other Current Living Situation Comment: [facility] current occupational status: unemployed Feels Safe at Home: Declines to Answer caffeine: No during the past year weight has: remained stable Dental Care, Regularly: No Seatbelt Use: always Sunscreen Use: No Assistive Devices: Walker Review of Systems Other (Unable to obtain due to respiratory distress.) Physical Exam Vital Signs Vital Signs - 24 hr 11/17/20 12:39 11/17/20 12:45 11/17/20 13:00 Temperature 37.6 C H 37.6 C H Temperature Source Rectal Rectal Pulse Rate 154 H Pulse Rate [Right Apical] 150 H Pulse Rate from SpO2 Sensor Pulse Rhythm Irregular Pulse Rhythm [Right Apical] Irregular Pulse Strength Weak Pulse Strength [Right Apical] Normal Respiratory Rate 26 H 42 H Respiratory Effort / Characteristics Accessory Muscle Use Short of Breath Labored Short of Breath Labored Short of Breath Respiratory Depth Retractive Respiratory Pattern Tachypnea Blood Pressure 86/54 L Blood Pressure [Left Arm] Blood Pressure Mean 64 Blood Pressure Mean [Left Arm] Blood Pressure Position Semi-fowlers Pulse Oximetry 100 91 Oxygen Delivery Method Non-rebreather Non-rebreather Non-rebreather Oxygen Flow Rate 15 15 Fraction of Inspired Oxygen Sepsis Recent Fever Within 48 Hours No Sepsis New/Unexplained Change in Mental Status N/A Sepsis Action Taken by Nursing Physician Notified Oxygen Flow Rate - Titration 15 Pulse Oximetry Post Tiitration 92 11/17/20 13:06 11/17/20 13:10 11/17/20 13:12 Temperature Temperature Source Pulse Rate 64 74 77 Pulse Rate [Right Apical] Pulse Rate from SpO2 Sensor 61 74 76 Pulse Rhythm Pulse Rhythm [Right Apical] Pulse Strength Pulse Strength [Right Apical] Respiratory Rate Respiratory Effort / Characteristics Respiratory Depth Respiratory Pattern Blood Pressure 99/74 L 95/74 L Blood Pressure [Left Arm] Blood Pressure Mean 82 81 Blood Pressure Mean [Left Arm] Blood Pressure Position Pulse Oximetry 100 100 100 Oxygen Delivery Method Oxygen Flow Rate Fraction of Inspired Oxygen Sepsis Recent Fever Within 48 Hours Sepsis New/Unexplained Change in Mental Status Sepsis Action Taken by Nursing Oxygen Flow Rate - Titration Pulse Oximetry Post Tiitration 11/17/20 13:20 11/17/20 13:30 11/17/20 13:40 Temperature Temperature Source Pulse Rate 71 102 H Pulse Rate [Right Apical] Pulse Rate from SpO2 Sensor 65 100 H 89 Pulse Rhythm Pulse Rhythm [Right Apical] Pulse Strength Pulse Strength [Right Apical] Respiratory Rate Respiratory Effort / Characteristics Respiratory Depth Respiratory Pattern Blood Pressure 112/76 99/79 L Blood Pressure [Left Arm] Blood Pressure Mean 88 85 Blood Pressure Mean [Left Arm] Blood Pressure Position Pulse Oximetry 100 99 99 Oxygen Delivery Method Oxygen Flow Rate Fraction of Inspired Oxygen Sepsis Recent Fever Within 48 Hours Sepsis New/Unexplained Change in Mental Status Sepsis Action Taken by Nursing Oxygen Flow Rate - Titration Pulse Oximetry Post Tiitration 11/17/20 13:46 11/17/20 13:50 11/17/20 13:54 Temperature Temperature Source Pulse Rate 128 H 114 H 114 H Pulse Rate [Right Apical] Pulse Rate from SpO2 Sensor 85 74 74 Pulse Rhythm Pulse Rhythm [Right Apical] Pulse Strength Pulse Strength [Right Apical] Respiratory Rate 20 22 20 Respiratory Effort / Characteristics Respiratory Depth Respiratory Pattern Blood Pressure 102/85 107/87 97/77 L Blood Pressure [Left Arm] Blood Pressure Mean 90 93 83 Blood Pressure Mean [Left Arm] Blood Pressure Position Pulse Oximetry 90 90 90 Oxygen Delivery Method Oxymask Oxymask Oxymask Oxygen Flow Rate 5 5 5 Fraction of Inspired Oxygen Sepsis Recent Fever Within 48 Hours Sepsis New/Unexplained Change in Mental Status Sepsis Action Taken by Nursing Oxygen Flow Rate - Titration Pulse Oximetry Post Tiitration 11/17/20 14:00 11/17/20 14:10 11/17/20 14:12 Temperature Temperature Source Pulse Rate 120 H 142 H 135 H Pulse Rate [Right Apical] Pulse Rate from SpO2 Sensor Pulse Rhythm Pulse Rhythm [Right Apical] Pulse Strength Pulse Strength [Right Apical] Respiratory Rate 18 34 H 36 H Respiratory Effort / Characteristics Respiratory Depth Respiratory Pattern Blood Pressure 97/73 L Blood Pressure [Left Arm] Blood Pressure Mean 81 Blood Pressure Mean [Left Arm] Blood Pressure Position Pulse Oximetry 91 87 L 89 L Oxygen Delivery Method Oxymask Oxymask Oxymask Oxygen Flow Rate 5 10 10 Fraction of Inspired Oxygen Sepsis Recent Fever Within 48 Hours Sepsis New/Unexplained Change in Mental Status Sepsis Action Taken by Nursing Oxygen Flow Rate - Titration Pulse Oximetry Post Tiitration 11/17/20 14:16 11/17/20 14:19 11/17/20 14:20 Temperature Temperature Source Pulse Rate 121 H 142 H 132 H Pulse Rate [Right Apical] Pulse Rate from SpO2 Sensor Pulse Rhythm Pulse Rhythm [Right Apical] Pulse Strength Pulse Strength [Right Apical] Respiratory Rate 32 H 34 H 30 H Respiratory Effort / Characteristics Respiratory Depth Respiratory Pattern Blood Pressure 95/73 L 100/79 119/94 Blood Pressure [Left Arm] Blood Pressure Mean 80 86 102 Blood Pressure Mean [Left Arm] Blood Pressure Position Pulse Oximetry 88 L 89 L 85 L Oxygen Delivery Method Oxymask Oxymask Oxymask Oxygen Flow Rate 5 5 15 Fraction of Inspired Oxygen Sepsis Recent Fever Within 48 Hours Sepsis New/Unexplained Change in Mental Status Sepsis Action Taken by Nursing Oxygen Flow Rate - Titration Pulse Oximetry Post Tiitration 11/17/20 14:22 11/17/20 14:25 11/17/20 14:26 Temperature Temperature Source Pulse Rate 141 H Pulse Rate [Right Apical] 120 H Pulse Rate from SpO2 Sensor 94 H 135 H Pulse Rhythm Pulse Rhythm [Right Apical] Pulse Strength Pulse Strength [Right Apical] Respiratory Rate 35 H 40 H 38 H Respiratory Effort / Characteristics Spontaneous Accessory Muscle Use Labored Short of Breath Respiratory Depth Respiratory Pattern Blood Pressure 123/93 Blood Pressure [Left Arm] Blood Pressure Mean 103 Blood Pressure Mean [Left Arm] Blood Pressure Position Pulse Oximetry 83 L 90 82 L Oxygen Delivery Method Oxymask High Flow Nasal Cannula Oxymask Oxygen Flow Rate 15 40 15 Fraction of Inspired Oxygen 60 Sepsis Recent Fever Within 48 Hours Sepsis New/Unexplained Change in Mental Status Sepsis Action Taken by Nursing Oxygen Flow Rate - Titration Pulse Oximetry Post Tiitration 11/17/20 14:30 11/17/20 14:31 11/17/20 14:37 Temperature Temperature Source Pulse Rate 149 H 136 H 133 H Pulse Rate [Right Apical] Pulse Rate from SpO2 Sensor 91 H Pulse Rhythm Pulse Rhythm [Right Apical] Pulse Strength Pulse Strength [Right Apical] Respiratory Rate 27 H 30 H 32 H Respiratory Effort / Characteristics Respiratory Depth Respiratory Pattern Blood Pressure 100/65 108/78 Blood Pressure [Left Arm] Blood Pressure Mean 76 88 Blood Pressure Mean [Left Arm] Blood Pressure Position Pulse Oximetry 82 L 86 L 90 Oxygen Delivery Method Oxymask Oxymask High Flow Nasal Cannula Oxygen Flow Rate 15 15 Fraction of Inspired Oxygen Sepsis Recent Fever Within 48 Hours Sepsis New/Unexplained Change in Mental Status Sepsis Action Taken by Nursing Oxygen Flow Rate - Titration Pulse Oximetry Post Tiitration 11/17/20 14:40 11/17/20 14:41 11/17/20 14:55 Temperature Temperature Source Pulse Rate 143 H 133 H 125 H Pulse Rate [Right Apical] Pulse Rate from SpO2 Sensor Pulse Rhythm Pulse Rhythm [Right Apical] Pulse Strength Pulse Strength [Right Apical] Respiratory Rate 30 H 33 H 28 H Respiratory Effort / Characteristics Spontaneous Accessory Muscle Use Labored Short of Breath Respiratory Depth Respiratory Pattern Tachypnea Blood Pressure 106/79 Blood Pressure [Left Arm] Blood Pressure Mean 88 Blood Pressure Mean [Left Arm] Blood Pressure Position Pulse Oximetry 89 L 90 Oxygen Delivery Method High Flow Nasal Cannula High Flow Nasal Cannula Oxygen Flow Rate Fraction of Inspired Oxygen 60 Sepsis Recent Fever Within 48 Hours Sepsis New/Unexplained Change in Mental Status Sepsis Action Taken by Nursing Oxygen Flow Rate - Titration Pulse Oximetry Post Tiitration 11/17/20 15:12 11/17/20 15:29 Temperature Temperature Source Pulse Rate 127 H Pulse Rate [Right Apical] 127 H Pulse Rate from SpO2 Sensor Pulse Rhythm Pulse Rhythm [Right Apical] Pulse Strength Pulse Strength [Right Apical] Respiratory Rate 26 H 22 Respiratory Effort / Characteristics Respiratory Depth Respiratory Pattern Blood Pressure 106/88 Blood Pressure [Left Arm] 95/76 L Blood Pressure Mean Blood Pressure Mean [Left Arm] 82 Blood Pressure Position Pulse Oximetry 90 96 Oxygen Delivery Method BiPAP CPAP Oxygen Flow Rate Fraction of Inspired Oxygen Sepsis Recent Fever Within 48 Hours Sepsis New/Unexplained Change in Mental Status Sepsis Action Taken by Nursing Oxygen Flow Rate - Titration Pulse Oximetry Post Tiitration Physical Exam GENERAL: Ill-appearing. EYES: Conjunctivae and EOM are normal. Pupils are equal, round, and reactive to light. Right eye exhibits no discharge. Left eye exhibits no discharge. No scleral icterus. NECK: Normal range of motion. Neck supple. No JVD present. No spinous process tenderness present. No carotid bruit present. No rigidity. No tracheal deviation and normal range of motion present. No Brudzinski's sign and no Kernig's sign noted. CV: Tachycardic rate, irregular rhythm, normal heart sounds and intact distal pulses. There is no peripheral edema. Palpable radial pulses bue. PULM/CHEST: Patient in respiratory distress. Tachypneic. Rhonchi bilaterally. Rales bilaterally. ABD: The abdomen is soft. Bowel sounds are normal. He has no distension. No mass is present. There is no tenderness. There is no rebound, no guarding, no German's sign and no tenderness at McBurney's point. Rovsig negative. MUSC/SKEL: Normal range of motion. There is no peripheral edema, tenderness or deformity. NEURO: Motor and sensation grossly intact. Procedures Free Text Procedures Indication: Atrial fibrillation with RVR and hypotension Verbal consent was obtained after the risks and benefits were explained, incl uding but not limited to pain, thermal burn, allergic reaction, aspiration, airway obstruction, laryngospasm, infection, hypotension, and cardiorespiratory arrest. At this time, the risks of the procedure are less than the risks of NOT performing the procedure. A time out was taken and the correct patient and procedure identified. The patient was on 100% via NRB. Suction, airway equipment, medications, respiratory equipment, ACLS cart, and appropriate personnel were prepared prior to the initiation of the procedure. Sedation was achieved utilizing etomidate 7 mg. The biphasic defibrillator was set to 125 joules of energy and synched. After confirmation of sedation and "all clear" safety check the synchronized shock was delivered. This resulted in successful conversion of the dysrhythmia back into paced rhythm. See nursing notes for dosages and times. There were no complications and the patient recovered uneventfully from the procedure. Course Course 1224: The patient was evaluated in room A1. A complete history and physical exam was performed patient found to be hypoxic with an oxygen saturation in the 80s and the patient was hypotensive. Patient was started on IV fluid bolus. Patient was found to be in A fib RVR. Large-bore IV access was obtained. Cardioversion pads were placed on the patient. Rectal temperature was less than 38 C. We were attempting to see if the IV fluids would improve the patient's heart rate and hypotension. Chest x-ray was conducted which showed a large right-sided pneumonia. It is thought that the patient could be septic. The patient's ventricular rate did not improve status post 500 cc normal saline bolus. Patient's blood pressure did not significantly improve either. Manual blood pressure never got above 94/60. We are debating whether to cardiovert the patient or to start the patient on amiodarone. It was thought it was best to avoid further Cardizem or beta-dilip boluses as we did not want to decrease patient's cardiac output and worsen his hypotension. Patient's [id number] INR was greater than 5. Ultimately, since the IV fluids did not improve the ventricular rate or the hypotension and the patient was therapeutic on anticoagulation it was thought that we should cardiovert the patient. Cardioversion was completed by me using etomidate 7 mg and the patient was cardioverted at 125 J. See procedure note. Status post cardioversion, the patient went into a paced rhythm with a ventricular rate in the 70s. The patient's blood pressure did improve. Patient's oxygen level also did improve. Broad-spectrum antibiotics Vanco and Zosyn were started on the patient. Fluids were continued. Pacemaker will be interrogated. Given the patient's likelihood to go back into A. fib RVR given his likely sepsis, amiodarone bolus and drip will be started. Cardiac monitoring: An order was placed for continuous cardiac monitoring. The monitor shows a rate of 140-170 with atrial fibrilation rhythm 1321: [employer] bilingual sales representative call me state that the patient's pacemaker has been pacing last 84 days and now as he is paced. I explained to him that I cardioverted the patient and that is why his most likely pace. I discussed the case with cardiology Dr. Bose who agreed with the cardioversion as well as the amiodarone bolus and drip. 1505: Patient went back into atrial fibrillation with a ventricular rate between 110-140. Labs show leukocytosis of 15.59. INR is 5.6. Venous blood gas is within normal limits. Patient's magnesium is 1.5. Magnesium replacement will be started in the emergency department. Lactate is 2.6. We will hold off on any beta-blockers or calcium channel blockers at this point as the patient's A. fib RVR is most likely in response to his septic shock. Patient has received almost 2 L normal saline and his blood pressure is stable. [place] any hospitalist team [facility] TRAFFIC OPERATOR and Dr. Craven have been notified. Dr. Lopez ICU has been notified about the patient. Dr. Lopez came down to evaluate the patient and stated he wanted the patient diuresed and to get no more IV fluids. Patient will be started on Vapotherm as he is becoming increasingly tachypneic and reporting increasing difficulty breathing. ABG on Vapotherm showed a pH of 7.528, PCO2 30.5, PO2 115, bicarb 25.4. Patient was still tachypneic and it seemed like he was breathing more through his mouth so patient was switched from Vapotherm to CPAP. Administered Medications Vancomycin HCl 1,750 mg/ (Sodium Chloride) 535 mls @ 200 mls/hr IV NOW ONE Stop: 11/17/20 15:43 Last Admin: 11/17/20 13:42 Dose: 200 mls/hr Documented by: [id number] Amiodarone HCl/Dextrose (Nexterone / D5w) 360 mg in 200 mls @ 33.333 mls/hr IV .Q6H JARRET Stop: 11/17/20 19:09 Last Admin: 11/17/20 13:45 Dose: 1 mg/min, 33.3 mls/hr Documented by: [id number] Cosigned by: [id number] Discontinued Medications Amiodarone HCl/Dextrose (Amiodarone 150mg / 100ml D5w) Confirm Administered Dose 150 mg IV .STK-MED ONE Stop: 11/17/20 12:48 Last Admin: 11/17/20 13:19 Dose: Not Given Documented by: [id number] Diltiazem HCl (Diltiazem Hcl 5 Mg/Ml 5 Ml Vial) Confirm Administered Dose 25 mg IV .STK-MED ONE Stop: 11/17/20 12:31 Last Admin: 11/17/20 13:21 Dose: Not Given Documented by: [id number] Etomidate (Etomidate 2 Mg/Ml 20 Ml Vial) Confirm Administered Dose 40 mg IV .STK-MED ONE Stop: 11/17/20 12:37 Last Admin: 11/17/20 13:46 Dose: Not Given Documented by: [id number] Etomidate (Etomidate 2 Mg/Ml 20 Ml Vial) Confirm Administered Dose 40 mg IV .STK-MED ONE Stop: 11/17/20 12:37 Last Admin: 11/17/20 13:46 Dose: Not Given Documented by: [id number] Etomidate (Etomidate 2 Mg/Ml 20 Ml Vial) 7 mg IV .GIVEN BY PROVIDER AT BEDSIDE ONE Stop: 11/17/20 12:51 Last Admin: 11/17/20 13:42 Dose: 7 mg Documented by: [id number] Furosemide (Furosemide 40 Mg/4 Ml Vial) Confirm Administered Dose 40 mg IV .STK- MED ONE Stop: 11/17/20 14:25 Last Admin: 11/17/20 14:36 Dose: Not Given Documented by: [id number] Furosemide (Furosemide 40 Mg/4 Ml Vial) 40 mg IV NOW STA Stop: 11/17/20 14:32 Last Admin: 11/17/20 14:37 Dose: 40 mg Documented by: [id number] Piperacillin Sod/Tazobactam Sod (Zosyn) 4.5 gm in 120 mls @ 240 mls/hr IV NOW ONE Stop: 11/17/20 13:15 Last Infusion: 11/17/20 14:05 Dose: 0 mls/hr Documented by: [id number] Admin: 11/17/20 13:18 Dose: 240 mls/hr Documented by: [id number] Amiodarone HCl/Dextrose (Nexterone / D5w) 150 mg in 100 mls @ 600 mls/hr IV ONE ONE Stop: 11/17/20 13:09 Last Infusion: 11/17/20 14:04 Dose: 0 mls/hr Documented by: [id number] Cosigned by: [id number] Admin: 11/17/20 12:59 Dose: 600 mls/hr Documented by: [id number] Cosigned by: [id number] Magnesium Sulfate/Dextrose (Magnesium Sulfate / D5w) 1 gm in 100 mls @ 100 mls/hr IV NOW STA Stop: 11/17/20 14:24 Last Infusion: 11/17/20 15:16 Dose: 0 mls/hr Documented by: [id number] Admin: 11/17/20 14:37 Dose: 100 mls/hr Documented by: [id number] Critical Care Time Critical Care Time: Yes Total Critical Care Time: 124 I have personally spent greater than 124 minutes of critical care time in the direct management of this patient. This includes bedside care, interpretation of diagnostic studies, and testing, discussion with consultants, patient, and family members, and other required patient management activities. This 124 minutes is in excess of all separately billable procedures. Medical Decision Making Laboratory Data Result diagrams: 11/17/20 12:47 11/17/20 12:47 Lab Results 11/17/20 11/17/20 11/17/20 Range/Units 12:47 12:47 12:47 WBC 15.59 H (4.8-10.8) K/uL RBC 3.11 L (4.7-6.1) M/uL Hgb 10.8 L (14.0-18.0) g/dL POC Hgb (14.0-18.0) g/dl Hct 31.5 L (42-52) % POC Hct (42-52) % MCV 101.3 H (80-100) fL MCH 34.7 H (25-34) pg MCHC 34.3 (32-36) g/dL RDW Std Deviation 56.5 H (36.4-46.3) fL RDW Coeff of Ivis 18.0 H (11.5-14.5) % Plt Count 219 (130-400) K/uL MPV 9.8 (7.4-10.4) fL Immature Gran % (Auto) 0.3 % Neut % (Auto) 94.5 % Lymph % (Auto) 4.2 % [place] % (Auto) 1.0 % Eos % (Auto) 0.0 % Baso % (Auto) 0.0 % Neut # (Auto) 14.75 H (1.4-6.5) K/uL Lymph # (Auto) 0.65 L (1.2-3.4) K/uL [place] # (Auto) 0.15 (0.11-0.59) K/uL Eos # (Auto) 0.00 (0-0.5) K/uL Baso # (Auto) 0.00 (0-0.2) K/uL Immature Gran # (Auto) 0.04 H (0.00-0.02) K/uL Absolute Nucleated RBC 0.03 H (0-0) K/uL Nucleated RBC % (auto) 0.2 % PT (9.0-12.0) Seconds INR (0.9-1.1) APTT (21.0-31.0) Seconds PTT Ratio POC pH (7.35-7.45) POC pCO2 (35-46) mmHg POC pO2 (80-95) mmHg POC HCO3 (19-24) janice/L POC Base Excess (-9-1.8) janice/L POC ABG O2 Sat (90-95) % VBG pH (7.36-7.41) VBG pCO2 (38-50) mmHg VBG pO2 mmHg VBG HCO3 mmol/L VBG O2 Saturation % VBG Base Excess mEq/L Barometric Pressure mm/Hg POC Sodium (135-144) mmol/L Sodium 136 (136-145) mmol/L POC Potassium (3.3-5.0) mmol/L Potassium 4.4 (3.5-5.1) mmol/L POC Chloride (101-112) mmol/L Chloride 101 (98-107) mmol/L Carbon Dioxide 29 (21-32) mmol/L POC Total CO2 (24-31) mmol/L Anion Gap 6.0 (3-11) POC Anion Gap (16-25) mmol/L POC BUN (7-18) mg/dl BUN 33 H (7-18) mg/dl Creatinine 1.43 H (0.6-1.4) mg/dl POC Creatinine (0.6-1.3) mg/dl Est Cr Clr Drug Dosing 48.0 ml/min Est GFR ( Amer) 55.9 Est GFR (Non-Af Amer) 48.2 BUN/Creatinine Ratio 23.3 H (10-20) Glucose 160 H (70-99) mg/dl POC Glucose (other) (70-99) mg/dl POC Lactic Acid Arter (0.36-1.25) mmol/L Lactate 2.6 H* (0.4-2.0) mmol/L Calcium 8.3 L (8.5-10.1) mg/dl POC Ioniz Calcium Nury (1.12-1.32) mmol/l Magnesium 1.5 L (1.8-2.4) mg/dl Troponin I 0.029 (0-0.045) ng/ml C-Reactive Protein (0-0.29) mg/dl NT-Pro-B Natriuret Pep 57770 H (0-900) pg/ml Lipase 51 L (73-393) U/L Procalcitonin (0-0.5) ng/ml COVID-19 Eval Order SARS-CoV-2 (PCR) (Negative) Influenza Type A (PCR) (Neg) Influenza Type B (PCR) (Neg) RSV (RT-PCR) (Neg) 11/17/20 11/17/20 11/17/20 Range/Units 12:47 12:47 12:47 WBC (4.8-10.8) K/uL RBC (4.7-6.1) M/uL Hgb (14.0-18.0) g/dL POC Hgb (14.0-18.0) g/dl Hct (42-52) % POC Hct (42-52) % MCV (80-100) fL MCH (25-34) pg MCHC (32-36) g/dL RDW Std Deviation (36.4-46.3) fL RDW Coeff of Ivis (11.5-14.5) % Plt Count (130-400) K/uL MPV (7.4-10.4) fL Immature Gran % (Auto) % Neut % (Auto) % Lymph % (Auto) % [place] % (Auto) % Eos % (Auto) % Baso % (Auto) % Neut # (Auto) (1.4-6.5) K/uL Lymph # (Auto) (1.2-3.4) K/uL [place] # (Auto) (0.11-0.59) K/uL Eos # (Auto) (0-0.5) K/uL Baso # (Auto) (0-0.2) K/uL Immature Gran # (Auto) (0.00-0.02) K/uL Absolute Nucleated RBC (0-0) K/uL Nucleated RBC % (auto) % PT (9.0-12.0) Seconds INR (0.9-1.1) APTT (21.0-31.0) Seconds PTT Ratio POC pH (7.35-7.45) POC pCO2 (35-46) mmHg POC pO2 (80-95) mmHg POC HCO3 (19-24) janice/L POC Base Excess (-9-1.8) janice/L POC ABG O2 Sat (90-95) % VBG pH 7.36 (7.36-7.41) VBG pCO2 54 H (38-50) mmHg VBG pO2 14 mmHg VBG HCO3 30 mmol/L VBG O2 Saturation < 60.0 % VBG Base Excess 3.8 mEq/L Barometric Pressure 718.8 mm/Hg POC Sodium (135-144) mmol/L Sodium (136-145) mmol/L POC Potassium (3.3-5.0) mmol/L Potassium (3.5-5.1) mmol/L POC Chloride (101-112) mmol/L Chloride (98-107) mmol/L Carbon Dioxide (21-32) mmol/L POC Total CO2 (24-31) mmol/L Anion Gap (3-11) POC Anion Gap (16-25) mmol/L POC BUN (7-18) mg/dl BUN (7-18) mg/dl Creatinine (0.6-1.4) mg/dl POC Creatinine (0.6-1.3) mg/dl Est Cr Clr Drug Dosing ml/min Est GFR ( Amer) Est GFR (Non-Af Amer) BUN/Creatinine Ratio (10-20) Glucose (70-99) mg/dl POC Glucose (other) (70-99) mg/dl POC Lactic Acid Arter (0.36-1.25) mmol/L Lactate (0.4-2.0) mmol/L Calcium (8.5-10.1) mg/dl POC Ioniz Calcium Nury (1.12-1.32) mmol/l Magnesium (1.8-2.4) mg/dl Troponin I (0-0.045) ng/ml C-Reactive Protein 12.90 H (0-0.29) mg/dl NT-Pro-B Natriuret Pep (0-900) pg/ml Lipase (73-393) U/L Procalcitonin 0.34 (0-0.5) ng/ml COVID-19 Eval Order SARS-CoV-2 (PCR) (Negative) Influenza Type A (PCR) (Neg) Influenza Type B (PCR) (Neg) RSV (RT-PCR) (Neg) 11/17/20 11/17/20 11/17/20 Range/Units 12:49 12:50 13:14 WBC (4.8-10.8) K/uL RBC (4.7-6.1) M/uL Hgb (14.0-18.0) g/dL POC Hgb 10.5 L (14.0-18.0) g/dl Hct (42-52) % POC Hct 31 L (42-52) % MCV (80-100) fL MCH (25-34) pg MCHC (32-36) g/dL RDW Std Deviation (36.4-46.3) fL RDW Coeff of Ivis (11.5-14.5) % Plt Count (130-400) K/uL MPV (7.4-10.4) fL Immature Gran % (Auto) % Neut % (Auto) % Lymph % (Auto) % [place] % (Auto) % Eos % (Auto) % Baso % (Auto) % Neut # (Auto) (1.4-6.5) K/uL Lymph # (Auto) (1.2-3.4) K/uL [place] # (Auto) (0.11-0.59) K/uL Eos # (Auto) (0-0.5) K/uL Baso # (Auto) (0-0.2) K/uL Immature Gran # (Auto) (0.00-0.02) K/uL Absolute Nucleated RBC (0-0) K/uL Nucleated RBC % (auto) % PT 49.3 H (9.0-12.0) Seconds INR 5.6 H* (0.9-1.1) APTT 44.5 H (21.0-31.0) Seconds PTT Ratio 1.7 POC pH (7.35-7.45) POC pCO2 (35-46) mmHg POC pO2 (80-95) mmHg POC HCO3 (19-24) janice/L POC Base Excess (-9-1.8) janice/L POC ABG O2 Sat (90-95) % VBG pH (7.36-7.41) VBG pCO2 (38-50) mmHg VBG pO2 mmHg VBG HCO3 mmol/L VBG O2 Saturation % VBG Base Excess mEq/L Barometric Pressure mm/Hg POC Sodium 135 (135-144) mmol/L Sodium (136-145) mmol/L POC Potassium 4.2 (3.3-5.0) mmol/L Potassium (3.5-5.1) mmol/L POC Chloride 97 L (101-112) mmol/L Chloride (98-107) mmol/L Carbon Dioxide (21-32) mmol/L POC Total CO2 31 (24-31) mmol/L Anion Gap (3-11) POC Anion Gap 13.0 L (16-25) mmol/L POC BUN 30 H (7-18) mg/dl BUN (7-18) mg/dl Creatinine (0.6-1.4) mg/dl POC Creatinine 1.4 H (0.6-1.3) mg/dl Est Cr Clr Drug Dosing ml/min Est GFR ( Amer) Est GFR (Non-Af Amer) BUN/Creatinine Ratio (10-20) Glucose (70-99) mg/dl POC Glucose (other) 155 H (70-99) mg/dl POC Lactic Acid Arter (0.36-1.25) mmol/L Lactate (0.4-2.0) mmol/L Calcium (8.5-10.1) mg/dl POC Ioniz Calcium Nury 1.16 (1.12-1.32) mmol/l Magnesium (1.8-2.4) mg/dl Troponin I (0-0.045) ng/ml C-Reactive Protein (0-0.29) mg/dl NT-Pro-B Natriuret Pep (0-900) pg/ml Lipase (73-393) U/L Procalcitonin (0-0.5) ng/ml COVID-19 Eval Order CovFluRsv at [facility] SARS-CoV-2 (PCR) (Negative) Influenza Type A (PCR) (Neg) Influenza Type B (PCR) (Neg) RSV (RT-PCR) (Neg) 04/06/2911/17/20 11/17/20 Range/Units 13:14 14:55 14:59 WBC (4.8-10.8) K/uL RBC (4.7-6.1) M/uL Hgb (14.0-18.0) g/dL POC Hgb 8.8 L (14.0-18.0) g/dl Hct (42-52) % POC Hct 26 L (42-52) % MCV (80-100) fL MCH (25-34) pg MCHC (32-36) g/dL RDW Std Deviation (36.4-46.3) fL RDW Coeff of Ivis (11.5-14.5) % Plt Count (130-400) K/uL MPV (7.4-10.4) fL Immature Gran % (Auto) % Neut % (Auto) % Lymph % (Auto) % [place] % (Auto) % Eos % (Auto) % Baso % (Auto) % Neut # (Auto) (1.4-6.5) K/uL Lymph # (Auto) (1.2-3.4) K/uL [place] # (Auto) (0.11-0.59) K/uL Eos # (Auto) (0-0.5) K/uL Baso # (Auto) (0-0.2) K/uL Immature Gran # (Auto) (0.00-0.02) K/uL Absolute Nucleated RBC (0-0) K/uL Nucleated RBC % (auto) % PT (9.0-12.0) Seconds INR (0.9-1.1) APTT (21.0-31.0) Seconds PTT Ratio POC pH 7.53 H* (7.35-7.45) POC pCO2 31 L (35-46) mmHg POC pO2 115 H (80-95) mmHg POC HCO3 25 H (19-24) janice/L POC Base Excess 3.0 H (-9-1.8) janice/L POC ABG O2 Sat 99.0 H (90-95) % VBG pH (7.36-7.41) VBG pCO2 (38-50) mmHg VBG pO2 mmHg VBG HCO3 mmol/L VBG O2 Saturation % VBG Base Excess mEq/L Barometric Pressure mm/Hg POC Sodium 136 (135-144) mmol/L Sodium (136-145) mmol/L POC Potassium 4.0 (3.3-5.0) mmol/L Potassium (3.5-5.1) mmol/L POC Chloride (101-112) mmol/L Chloride (98-107) mmol/L Carbon Dioxide (21-32) mmol/L POC Total CO2 26 (24-31) mmol/L Anion Gap (3-11) POC Anion Gap (16-25) mmol/L POC BUN (7-18) mg/dl BUN (7-18) mg/dl Creatinine (0.6-1.4) mg/dl POC Creatinine (0.6-1.3) mg/dl Est Cr Clr Drug Dosing ml/min Est GFR ( Amer) Est GFR (Non-Af Amer) BUN/Creatinine Ratio (10-20) Glucose (70-99) mg/dl POC Glucose (other) (70-99) mg/dl POC Lactic Acid Arter 1.28 H (0.36-1.25) mmol/L Lactate (0.4-2.0) mmol/L Calcium (8.5-10.1) mg/dl POC Ioniz Calcium Nury (1.12-1.32) mmol/l Magnesium (1.8-2.4) mg/dl Troponin I (0-0.045) ng/ml C-Reactive Protein (0-0.29) mg/dl NT-Pro-B Natriuret Pep (0-900) pg/ml Lipase (73-393) U/L Procalcitonin (0-0.5) ng/ml COVID-19 Eval Order SARS-CoV-2 (PCR) NEGATIVE (Negative) Influenza Type A (PCR) Negative (Neg) Influenza Type B (PCR) Negative (Neg) RSV (RT-PCR) Negative (Neg) Imaging Data Radiologist's Impression: Chest X-Ray 11/17/20 12:24 XR chest 1V portable CLINICAL HISTORY: Chest Pain. Lung cancer. COMPARISON STUDY: Chest CT September 30, 2020. Chest radiograph October 03, 2020. FINDINGS: Dual lead left subclavian pacemaker is in place. Dense right upper lobe consolidation has developed. Right lower lobe mass is better depicted on prior chest CT. Left upper lobe airspace opacity is developed. Left lower lobe airspace opacity has improved. There is a small right pleural effusion. There is no pneumothorax. There is underlying emphysema. IMPRESSION: 1. Interval development of dense right upper lobe consolidation and additional bilateral airspace opacities consistent with multifocal pneumonia. Radiographic follow up to ensure resolution is recommended. Right lower lobe mass obscured by airspace opacity. 2. Small right pleural effusion. 3. Emphysema. ACT 112: Negative or not required by law. Electronically signed by: Bakari Trevino M.D. 11/17/2020 12:59 PM ECG Data Additional Comments: EKG #1 at 1244: Atrial fibrillation with a rate of 151. QRS and QTc intervals are within normal limits. No ST elevation or ST depressi on. EKG #2 at 1301 status post cardioversion: Paced rhythm with rate of 72. QRS and [address] elevation or ST depression. [facility] Narrative 1224: The patient was evaluated in room A1. A complete history and physical exam was performed patient found to be hypoxic with an oxygen saturation in the 80s and the patient was hypotensive. Patient was started on IV fluid bolus. Patient was found to be in A fib RVR. Large-bore IV access was obtained. Cardioversion pads were placed on the patient. Rectal temperature was less than 38 C. We were attempting to see if the IV fluids would improve the patient's heart rate and hypotension. Chest x-ray was conducted which showed a large right-sided pneumonia. It is thought that the patient could be septic. The patient's ventricular rate did not improve status post 500 cc normal saline bolus. Patient's blood pressure did not significantly improve either. Manual blood pressure never got above 94/60. We are debating whether to cardiovert the patient or to start the patient on amiodarone. It was thought it was best to avoid further Cardizem or beta-dilip boluses as we did not want to decrease patient's cardiac output and worsen his hypotension. Patient's [id number] INR was greater than 5. Ultimately, since the IV fluids did not improve the ventricular rate or the hypotension and the patient was therapeutic on anticoagulation it was thought that we should cardiovert the patient. Cardioversion was completed by me using etomidate 7 mg and the patient was cardioverted at 125 J. See procedure note. Status post cardioversion, the patient went into a paced rhythm with a ventricular rate in the 70s. The patient's blood pressure did improve. Patient's oxygen level also did improve. Broad-spectrum antibiotics Vanco and Zosyn were started on the patient. Fluids were continued. Pacemaker will be interrogated. Given the patient's likelihood to go back into A. fib RVR given his likely sepsis, amiodarone bolus and drip will be started. Cardiac monitoring: An order was placed for continuous cardiac monitoring. The monitor shows a rate of 140-170 with atrial fibrilation rhythm 1321: [employer] bilingual sales representative call me state that the patient's pacemaker has been pacing last 84 days and now as he is paced. I explained to him that I cardioverted the patient and that is why his most likely pace. I discussed the case with cardiology Dr. Bose who agreed with the cardioversion as well as the amiodarone bolus and drip. 1505: Patient went back into atrial fibrillation with a ventricular rate between 110-140. Labs show leukocytosis of 15.59. INR is 5.6. Venous blood gas is within normal limits. Patient's magnesium is 1.5. Magnesium replacement will be started in the emergency department. Lactate is 2.6. We will hold off on any beta-blockers or calcium channel blockers at this point as the patient's A. fib RVR is most likely in response to his septic shock. Patient has received almost 2 L normal saline and his blood pressure is stable. [place] any hospitalist team Seymour TALAMANTES and Dr. Craven have been notified. Dr. Lopez ICU has been notified about the patient. Dr. Lopez came down to evaluate the patient and stated he wanted the patient diuresed and to get no more IV fluids. Patient will be started on Vapotherm as he is becoming increasingly tachypneic and reporting increasing difficulty breathing. ABG on Vapotherm showed a pH of 7.528, PCO2 30.5, PO2 115, bicarb 25.4. Patient was still tachypneic and it seemed like he was breathing more through his mouth so patient was switched from Vapotherm to CPAP. Impression & Plan Septic shock, Pneumonia, Atrial fibrillation with RVR Discharge Plan Visit Data Chief Complaint: Shortness of Breath/Dyspnea ED Provider: Mainor Angulo Discharge Problem: Septic shock, Pneumonia, Atrial fibrillation with RVR Patient Disposition: Admitted As Inpatient Discharge Instructions Interventions: ED Discharge Assessment Last Done: 11/17/20 15:29 Forms Stand Alone Forms: My [facility] Prescriptions Prescriptions: No Action atorvastatin 20 mg Tablet 20 mg PO HS RF: 0 haloperidol 1 mg Tablet 1 mg PO BID RF: 0 tamsulosin 0.4 mg Capsule 0.4 mg PO HS RF: 0 benztropine 1 mg Tablet 1 mg PO QAM RF: 0 montelukast 10 mg Tablet 10 mg PO QAM RF: 0 hydroxyzine HCl 25 mg Tablet 25 mg PO BID RF: 0 haloperidol 2 mg Tablet 2 mg PO BID RF: 0 levalbuterol tartrate [Xopenex HFA] 45 mcg/actuation Hfa Aerosol Inhaler 2 inh INHALATION QID PRN (Reason: Shortness Of Breath) RF: 0 Senna Plus 8.6-50 mg Capsule 2 tab-cap PO QAM RF: 0 warfarin 2 mg Tablet 2 mg PO DAILY RF: 0 metoprolol succinate 100 mg tablet extended release 24 hr 100 mg PO DAILY Qty: 10 RF: 0 potassium chloride 10 mEq capsule, extended release 20 meq PO DAILY Qty: 14 RF: 0 Alvesco 160 mcg/actuation Hfa Aerosol Inhaler 1 puff INHALATION BID RF: 0 prednisone 10 mg tablet 10 mg PO UD Qty: 160 RF: 0 omeprazole 40 mg Capsule,Delayed Release(Dr/Ec) 40 mg PO BID Qty: 0 RF: 0 ipratropium-albuterol [DuoNeb] 0.5 mg-3 mg(2.5 mg base)/3 mL Solution For Nebulization 3 ml INHALATION Q4H RF: 0 Referrals Referrals: Luis Miguel OLGUIN [Primary Care Provider] - Discharge Problem: Pneumonia Qualifiers: Pneumonia type: due to unspecified organism Laterality: right Lung location: l ower lobe of lung Qualified Code(s): J18.9 - Pneumonia, unspecified organism
[2020-11-17 14:16] LABS: INR 5.6 (0.9-1.1)
[2020-11-17] MEDS ORDERED: FUROSEMIDE 40 MG/4 ML VIAL IV ONE ×2 (14:24→22:09)
[2020-11-17] MEDS ORDERED: FUROSEMIDE 40 MG/4 ML VIAL IV STA (14:31)
--- NOTE | 2020-11-17 14:39 | Critical Care Consultation ---
Date of Consultation November 17, 2020 Assessment & Plan (1) Pneumonitis: (2) Acute hypoxemic respiratory failure: (3) Elevated INR: Impression: 75-year-old male with history of advanced small cell lung cancer status post radiation therapy and chemotherapy. He completed therapy in August. He was admitted to the facility in September with a pleural effusion and underwent drainage at that point time. He presents today with atrial fibrillation with rapid ventricular response and increasing shortness of breath with a new right upper lobe airspace opacity and supratherapeutic INR. Recommendations: 1. Neurologic: No current issues. Continue to follow at this point time. 2. Respiratory: Hypoxemic respiratory failure secondary to airspace opacity in the right upper lobe. He sounds congested and may be slightly fluid overloaded. We will try noninvasive positive pressure ventilation given that there may be some fluid overload associated with this. Discussed with the patient and he would be amenable to intubation mechanical ventilation if necessary. It is unclear whether the airspace opacity may represent delayed radiation pneumonitis versus bacterial infection versus chemotherapeutic pulmonary toxicity. Conceivably could consider bronchoscopy with BAL to guide therapy however the patient's hemodynamic status currently would not allow for that and it would likely require intubation mechanical ventilation. This point time I think it is reasonable to continue with antibiotics and follow the patient clinically. Ideally a CT scan could be obtained at some point in time to ensure that the superior segment of the right lower lobe remains patent. 3. Cardiovascular: Atrial fibrillation with rapid ventricular response. Management per cardiology. Has been initiated on amiodarone. He does have a pacemaker in place so there is not really a concern about beta-blocking him down to bradycardia however his blood pressure does appear to be somewhat marginal. We will see how he does and consider Devin-Synephrine if needed to support his blood pressure. Lactate was mildly elevated and this will be trended over time. His BNP is markedly elevated over 15,000. Troponin of 0.029. Will defer to cardiology repeat echocardiogram. 4. ID: Procalcitonin is pending. Again the infiltrate could represent pneumonia versus pneumonitis. Agree with antibiotics in the form of vancomycin and zosyn. Will follow clinically. 5. Heme-onc: Elevated INR. Hold additional Coumadin at this point time. No bleeding so no indication for acute reversal currently. The patient's current oncologic status is not entirely clear. There are no notes from hematology oncology or radiation oncology since September in the EMR and I am unclear if there are additional clinical notes that were not privy to at this point in time. The patient does not relate any recent chemotherapy or radiation therapy. Repeat imaging may be beneficial once the patient is clinically stable. Pallia tive care consultation may also be appropriate. 6. Endocrine: Glycemic control per ICU protocol 7. GI: No current issues. 8. Renal: Serum creatinine appears stable compared to prior. Electrolytes are okay. Continue to follow with diuresis. 9. Prognosis guarded at this time. Will see how he responds to diuresis and potential NIPPV. 45 min CC time evaluating and managing patient with multiple critical medical issues. History of Present Illness Allergies Allergy/AdvReac Type Severity Reaction Status Date / Time No Known Allergies Allergy Verified 09/30/20 01:37 Home Medications Medication Instructions Recorded Confirmed Type Senna Plus 2 tab-cap PO QAM 05/09/20 11/17/20 History atorvastatin 20 mg PO HS 05/09/20 11/17/20 History benztropine 1 mg PO QAM 05/09/20 11/17/20 History haloperidol 1 mg PO BID 05/09/20 11/17/20 History haloperidol 2 mg PO BID 05/09/20 11/17/20 History hydroxyzine HCl 25 mg PO BID 05/09/20 11/17/20 History levalbuterol tartrate [Xopenex HFA] 2 inh INHALATION QID PRN 05/09/20 11/17/20 History montelukast 10 mg PO QAM 05/09/20 11/17/20 History tamsulosin 0.4 mg PO HS 05/09/20 11/17/20 History warfarin 2 mg PO DAILY 09/19/20 11/17/20 History metoprolol succinate 100 mg PO DAILY #10 tab 09/23/20 11/17/20 Rx potassium chloride 20 meq PO DAILY #14 cap 09/24/20 09/30/20 Rx Alvesco 1 puff INHALATION BID 09/30/20 11/17/20 History omeprazole 40 mg PO BID #0 cap 10/03/20 11/17/20 Rx prednisone 10 mg PO UD #160 tab 10/03/20 11/17/20 Rx ipratropium-albuterol [DuoNeb] 3 ml INHALATION Q4H 11/17/20 11/17/20 History Patient History Medical History Anxiety Atrial fibrillation ANTICOAGULATED WITH COUMADIN Chronic obstructive pulmonary disease CKD (chronic kidney disease) stage 2, GFR 60-89 ml/min Hyperlipidemia Hypertension Inmate in correctional facility Nocturia Phlebitis DEEP LOWER EXTREMITY. 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 Has followed with Dr. Calle. Social History Smoking Status: Unknown if ever smoked Tobacco Type: Cigarettes Age Started Using Tobacco: 11; Age Quit Using Tobacco: 55; packs per day: 1; Years Smoked: 44; Cigarettes Per Day: 20; Number of Years Since Quit: 20; Second Hand Exposure: No; Hx Alcohol Use: No Hx Substance Use: No Preferred Language: Setswana Communication Ability: Effective Visual Impairment: No Limitations Hearing Ability: Normal Chief Passenger Ship Steward/Stewardess Required: No Beliefs That Will Affect Care: None marital status: Single Current Living Situation: Other Current Living Situation Comment: [facility] current occupational status: unemployed Feels Safe at Home: Declines to Answer caffeine: No during the past year weight has: remained stable Dental Care, Regularly: No Seatbelt Use: always Sunscreen Use: No Assistive Devices: Walker Review of Systems Review of Systems: Please refer to admission H&P. I have no additions or deletions Physical Exam Constitutional: + acute distress, + thin, + cachectic and + frail appearing Neck: trachea midline, no thyromegaly Respiratory: + respiratory distress and + labored breathing Auscultation: + rales; no wheezes Cardiovascular: RRR, no murmur, no edema Gastrointestinal (Abdomen): normal bowel sounds, soft, nontender, no hepatosplenomegaly Musculoskeletal: Extremities: extremities normal to inspection Skin: no rashes, warm and dry Neurologic: Nonfocal exam Lymphatic: no cervical lymphadenopathy Results & Data Results & Data ([facility]) Vital Signs (Past 12 Hours) Vital Signs Temp Pulse Resp BP Pulse Ox 11/17/20 13:40 102 H 99 11/17/20 13:30 99/79 L 99 11/17/20 13:20 71 112/76 100 11/17/20 13:12 77 100 11/17/20 13:10 74 95/74 L 100 11/17/20 13:06 64 99/74 L 100 11/17/20 12:39 37.6 C H 154 H 26 H 86/54 L 100 Laboratory Results 11/17/20 12:47 11/17/20 12:47 Diagnostic Findings Chest x-ray was independently reviewed. There is a parenchymal airspace opacity present within the right superior segment. This likely corresponds to an area of previous airway narrowing. The left side looks much improved compared to previous. Coding Level of Care Code Critical Care 1st 30-74 mins Diagnoses Pneumonitis J18.9 Acute hypoxemic respiratory failure J96.01 Elevated INR R79.1 Time Spent (min) 45
[2020-11-17 14:59] LABS: Influenza A virus by PCR Negative (Neg); Influenza B virus by PCR Negative (Neg); RSV by PCR Negative (Neg); SARS CoV2 RNA(COVID-19) InHosp NEGATIVE (Negative)
[2020-11-17 15:13] LABS: iSTAT Arterial Blood Gas HCO3 25 meg/L (19-24); iSTAT Arterial Blood Gas pCO2 31 mmHg (35-46); iSTAT Arterial Blood Gas pH 7.53 (7.35-7.45); iSTAT Arterial Blood Gas pO2 115 mmHg (80-95); iSTAT Carbon Dioxide 26 mmol/L (24-31); iSTAT Hematocrit 26 % (42-52); iSTAT Hemoglobin 8.8 g/dl (14.0-18.0); iSTAT Sodium 136 mmol/L (135-144)
[2020-11-17] MEDS: MAGNESIUM SULFATE / D5W 1 GM/100 ML BAG IV SCH ×2 (15:17→15:40)
--- NOTE | 2020-11-17 15:24 | History & Physical Report ---
Date of Service November 17, 2020 Assessment & Plan (1) Dyspnea: Appears at this time to be cardiogenic in nature, however can not fully rule out infectious process. - CPAP/HFNC/NC- CPAP now for dyspnea and elevated RR- titrate 5-8 for now and adjust for minute ventilation - CT scan of the chest when he is stable - Rate control Afib- both are exacerbating the patient's condition COPD- FEV/FEV1 in June- 33% actual, %predicted 43 - Continue Alvesco - Continue Xopenex inhaler - Continue Ipratropium inhaler - can change to nebs if unable to effectively use inhalers secondary to tachypnea (2) Hypoxia: As above, patient hypoxic on presentation, now on CPAP and oxygenating well - Folllow- improve with positive pressure and diuresing - CPAP/HFNC/Intubation if needed - rule out PE with CTA of the chest when stable. (3) Atrial fibrillation with RVR: Rate control- Acute volume overload- BNP markedly higher than his previous. - Lactate is mild and likely from hypotension from rate control - Replete magnesium - Metoprolol to IV PRN - Amiodarone per ICU and cardiology - With pacemaker - should be no concerns for lowering - Hypotension likely concurrent with tachycardia and Calcium channel blockade (4) Pneumonitis: Cotninue prednisone - Pulmonary/ICU to follow - Chemo/radiation (5) Pneumonia: Cover broad spectrum- blood cultures are pending - do not feel this is sepsis at this time, WBC are normal range - PCT mildly elevated - Wean off antibiotics when case becomes more evident, appropriatley covered for now - BAL ? 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 Warfarin dose withheld (7) Hypomagnesemia: As above- replete (8) Acute and chronic respiratory failure with hypoxia: (9) Small cell lung 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: (10) Cardiac pacemaker: (11) Schizophrenia: (12) BPH (benign prostatic hyperplasia): (13) Chronic obstructive pulmonary disease: (14) Radiation pneumonitis: History of Present Illness Primary Care Provider: CLAU Bolanos 75 YOM with past medical history of schizophrenia, dementia, COPD, Small Cell Lung Cancer, HLD, CKD, GERD, Afib on warfarin, pleural effusion, hemoptysis, Pacemaker, diastolic dysfunction. Patient brought in from [facility] this morning via EMS for dyspnea and afib with RVR. The patient states that a couple hours after awakening this morning, he go acutely short of breath, and then his heart rate started going fast. He said he felt well yesterday, and denies any fevers or chills. During the EMS ride the patient was noted with HR >150 and was given diltiazem in the rig. He arrived to the EMD hypotensive, HR 140-170 afib, cool and clammy extremities, he was emergently cardioverted which brought the patient back to rate controlled paced rhythm. There was also question of his pacemaker function which was interrogated over the phone. The EMD physician spoke with Dr. Bose as well and elected for amiodarone. The patient was hemodynamically stabilized and the hospitalist service and ICU service was notified for admission. Patient was then given 40 mg of Lasix, Magnesium replaced, CPAP/HFNC for tachypnea. In short elderly man with known lung cancer, was recently admitted in September for likely post obstructive pneumonia where he also had a thoracentesis that was transudative. His lung cancer was diagnosed in [address] Bello where he was undergoing etoposide and cisplatin and XRT therapy. His pacemaker is AAIR to DDDR with upper tracking rate of 130 with mode switch at 162, phone retrieval reportedly revealed that he has not been paced in the past 84 days, This was also interrogated during his September admission. His case today is likely multifactorial with his known pneumonitis, he has pulmonary edema, uncontrolled afib and will need supported for both. Goal will be to rate control and volume offload the patient. Obtain CT scan of the chest when stable. Replace electrolytes, Cards consult for further evaluation of his antitachycardic pacing and rhythm control. He was placed on CPAP in the EMD and RR decreased from 40's to 28, will re-evaluate his drive and minute ventilation with his support. He was oxygenating well on his ABG, CPAP should return his PaCO2 to normal. Appreciate the EMD and the ICU assistance with this patient. Allergies Allergy/AdvReac Type Severity Reaction Status Date / Time No Known Allergies Allergy Verified 09/30/20 01:37 Home Medications Medication Instructions Recorded Confirmed Type Senna Plus 2 tab-cap PO QAM 05/09/20 11/17/20 History atorvastatin 20 mg PO HS 05/09/20 11/17/20 History benztropine 1 mg PO QAM 05/09/20 11/17/20 History haloperidol 1 mg PO BID 05/09/20 11/17/20 History haloperidol 2 mg PO BID 05/09/20 11/17/20 History hydroxyzine HCl 25 mg PO BID 05/09/20 11/17/20 History levalbuterol tartrate [Xopenex HFA] 2 inh INHALATION QID PRN 05/09/20 11/17/20 History montelukast 10 mg PO QAM 05/09/20 11/17/20 History tamsulosin 0.4 mg PO HS 05/09/20 11/17/20 History warfarin 2 mg PO DAILY 09/19/20 11/17/20 History metoprolol succinate 100 mg PO DAILY #10 tab 09/23/20 11/17/20 Rx potassium chloride 20 meq PO DAILY #14 cap 09/24/20 09/30/20 Rx Alvesco 1 puff INHALATION BID 09/30/20 11/17/20 History omeprazole 40 mg PO BID #0 cap 10/03/20 11/17/20 Rx prednisone 10 mg PO UD #160 tab 10/03/20 11/17/20 Rx ipratropium-albuterol [DuoNeb] 3 ml INHALATION Q4H 11/17/20 11/17/20 History Past Med/Surg History Medical History (Updated 11/17/20 @ 22:14 by Khang Valle) Anxiety Atrial fibrillation ANTICOAGULATED WITH COUMADIN Chronic obstructive pulmonary disease CKD (chronic kidney disease) stage 2, GFR 60-89 ml/min Hyperlipidemia Hypertension Inmate in correctional facility Nocturia Phlebitis DEEP LOWER EXTREMITY. Pulmonary mass Radiation pneumonitis Shortness of breath Sick sinus syndrome s/p insertion of PPM 06/02/16 Small cell lung 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 dx 05/2020, right sided. Syncope Implantation of dual-chamber Medtronic pacemaker 06/02/2016 Surgical History History of appendectomy History of tonsillectomy Status post biventricular cardiac pacemaker insertion 2015. Has followed with Dr. Calle. 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 Beliefs That Will Affect Care: None marital status: Single Current Living Situation: Other Current Living Situation Comment: [facility] current occupational status: unemployed Feels Safe at Home: Declines to Answer caffeine: No during the past year weight has: remained stable Dental Care, Regularly: No Seatbelt Use: always Sunscreen Use: No Assistive Devices: Walker Review of Systems Review of Systems: REVIEW OF SYSTEMS: Constitutional: No fever, sweats or chills Eyes: No diplopia, no worsening or blurred vision ENT: normal hearing, no trouble swallowing Respiratory: (+) cough, sputum, dyspnea at rest or on exertion, clear to yellow secretions Cardiovascular: (+) palpitations, No chest pain, tightness Abdomen: No pain, nausea, vomiting, diarrhea or constipation Musculoskeletal: No joint pain, calf pain, swelling Neurologic: No weakness, numbness/tingling, or balance problems Psychiatric: No anxiety or depression Skin: No rash or itch Physical Exam Physical Exam: PHYSICAL EXAM: General: awake, alert, ill appearing tachypneic male Head: Normocephalic, atraumatic ENT: PERRL, EOMI, no pharyngeal exudate, mucous membranes dry Neuro: AAO x 3, speech clear and appropriate, strength intact bilaterally 5/5, sensation intact and equal all extremities and dermatomes, no focal deficit Chest: equal rise and fall of the chest, accessory muscle use, crackles throughout bilateral lung siddiqi, dyspneic, no heaves or thrills, on NRB Cardiac: irregular rate and rhythm, telemetry reviewed- afib, skin is cool and dry, cap refill >3 seconds, peripheral pulses +2, JCD difficult to ascertain secondary to RR, +2 edema bilateral upper and lower extremities GI: NABS x 4 quadrants, soft, nontender to palpation, no rebound, guarding or tenderness : Rivas being placed Extremities: Normal inspection, calfs nontender to palpation, brusing to upper hands Psych: Normal mood and affect Skin: no rash or erythema Results & Data Results & Data ([facility]) Vital Signs (Past 12 Hours) Vital Signs Temp Pulse Pulse Resp BP BP Pulse Ox 11/17/20 15:12 127 H 26 H 95/76 L 90 11/17/20 14:41 133 H 33 H 106/79 90 11/17/20 14:40 143 H 30 H 89 L 11/17/20 14:37 133 H 32 H 108/78 90 11/17/20 14:31 136 H 30 H 100/65 86 L 11/17/20 14:30 149 H 27 H 82 L 11/17/20 14:26 38 H 123/93 82 L 11/17/20 14:22 141 H 35 H 83 L 11/17/20 14:20 132 H 30 H 119/94 85 L 11/17/20 14:19 142 H 34 H 100/79 89 L 11/17/20 14:16 121 H 32 H 95/73 L 88 L 11/17/20 14:12 135 H 36 H 97/73 L 89 L 11/17/20 14:10 142 H 34 H 87 L 11/17/20 14:00 120 H 18 91 11/17/20 13:54 114 H 20 97/77 L 90 11/17/20 13:50 114 H 22 107/87 90 11/17/20 13:46 128 H 20 102/85 90 11/17/20 13:40 102 H 99 11/17/20 13:30 99/79 L 99 11/17/20 13:20 71 112/76 100 11/17/20 13:12 77 100 11/17/20 13:10 74 95/74 L 100 11/17/20 13:06 64 99/74 L 100 11/17/20 13:00 37.6 C H 150 H 42 H 91 11/17/20 12:39 37.6 C H 154 H 26 H 86/54 L 100 Laboratory Results Abnormal lab results 11/17/20 11/17/20 11/17/20 Range/Units 12:47 12:47 12:47 WBC 15.59 H (4.8-10.8) K/uL RBC 3.11 L (4.7-6.1) M/uL Hgb 10.8 L (14.0-18.0) g/dL POC Hgb (14.0-18.0) g/dl Hct 31.5 L (42-52) % POC Hct (42-52) % MCV 101.3 H (80-100) fL MCH 34.7 H (25-34) pg RDW Std Deviation 56.5 H (36.4-46.3) fL RDW Coeff of Ivis 18.0 H (11.5-14.5) % Neut # (Auto) 14.75 H (1.4-6.5) K/uL Lymph # (Auto) 0.65 L (1.2-3.4) K/uL Immature Gran # (Auto) 0.04 H (0.00-0.02) K/uL Absolute Nucleated RBC 0.03 H (0-0) K/uL PT (9.0-12.0) Seconds INR (0.9-1.1) APTT (21.0-31.0) Seconds POC pH (7.35-7.45) POC pCO2 (35-46) mmHg POC pO2 (80-95) mmHg POC HCO3 (19-24) janice/L POC Base Excess (-9-1.8) janice/L POC ABG O2 Sat (90-95) % VBG pCO2 (38-50) mmHg POC Chloride (101-112) mmol/L POC Anion Gap (16-25) mmol/L POC BUN (7-18) mg/dl BUN 33 H (7-18) mg/dl Creatinine 1.43 H (0.6-1.4) mg/dl POC Creatinine (0.6-1.3) mg/dl BUN/Creatinine Ratio 23.3 H (10-20) Glucose 160 H (70-99) mg/dl POC Glucose (other) (70-99) mg/dl POC Lactic Acid Arter (0.36-1.25) mmol/L Lactate 2.6 H* (0.4-2.0) mmol/L Calcium 8.3 L (8.5-10.1) mg/dl Magnesium 1.5 L (1.8-2.4) mg/dl C-Reactive Protein (0-0.29) mg/dl NT-Pro-B Natriuret Pep 48088 H (0-900) pg/ml Lipase 51 L (73-393) U/L 11/17/20 11/17/20 11/17/20 Range/Units 12:47 12:47 12:49 WBC (4.8-10.8) K/uL RBC (4.7-6.1) M/uL Hgb (14.0-18.0) g/dL POC Hgb 10.5 L (14.0-18.0) g/dl Hct (42-52) % POC Hct 31 L (42-52) % MCV (80-100) fL MCH (25-34) pg RDW Std Deviation (36.4-46.3) fL RDW Coeff of Ivis (11.5-14.5) % Neut # (Auto) (1.4-6.5) K/uL Lymph # (Auto) (1.2-3.4) K/uL Immature Gran # (Auto) (0.00-0.02) K/uL Absolute Nucleated RBC (0-0) K/uL PT (9.0-12.0) Seconds INR (0.9-1.1) APTT (21.0-31.0) Seconds POC pH (7.35-7.45) POC pCO2 (35-46) mmHg POC pO2 (80-95) mmHg POC HCO3 (19-24) janice/L POC Base Excess (-9-1.8) janice/L POC ABG O2 Sat (90-95) % VBG pCO2 54 H (38-50) mmHg POC Chloride 97 L (101-112) mmol/L POC Anion Gap 13.0 L (16-25) mmol/L POC BUN 30 H (7-18) mg/dl BUN (7-18) mg/dl Creatinine (0.6-1.4) mg/dl POC Creatinine 1.4 H (0.6-1.3) mg/dl BUN/Creatinine Ratio (10-20) Glucose (70-99) mg/dl POC Glucose (other) 155 H (70-99) mg/dl POC Lactic Acid Arter (0.36-1.25) mmol/L Lactate (0.4-2.0) mmol/L Calcium (8.5-10.1) mg/dl Magnesium (1.8-2.4) mg/dl C-Reactive Protein 12.90 H (0-0.29) mg/dl NT-Pro-B Natriuret Pep (0-900) pg/ml Lipase (73-393) U/L 11/17/20 11/17/20 11/17/20 Range/Units 12:50 14:55 14:59 WBC (4.8-10.8) K/uL RBC (4.7-6.1) M/uL Hgb (14.0-18.0) g/dL POC Hgb 8.8 L (14.0-18.0) g/dl Hct (42-52) % POC Hct 26 L (42-52) % MCV (80-100) fL MCH (25-34) pg RDW Std Deviation (36.4-46.3) fL RDW Coeff of Ivis (11.5-14.5) % Neut # (Auto) (1.4-6.5) K/uL Lymph # (Auto) (1.2-3.4) K/uL Immature Gran # (Auto) (0.00-0.02) K/uL Absolute Nucleated RBC (0-0) K/uL PT 49.3 H (9.0-12.0) Seconds INR 5.6 H* (0.9-1.1) APTT 44.5 H (21.0-31.0) Seconds POC pH 7.53 H* (7.35-7.45) POC pCO2 31 L (35-46) mmHg POC pO2 115 H (80-95) mmHg POC HCO3 25 H (19-24) janice/L POC Base Excess 3.0 H (-9-1.8) janice/L POC ABG O2 Sat 99.0 H (90-95) % VBG pCO2 (38-50) mmHg POC Chloride (101-112) mmol/L POC Anion Gap (16-25) mmol/L POC BUN (7-18) mg/dl BUN (7-18) mg/dl Creatinine (0.6-1.4) mg/dl POC Creatinine (0.6-1.3) mg/dl BUN/Creatinine Ratio (10-20) Glucose (70-99) mg/dl POC Glucose (other) (70-99) mg/dl POC Lactic Acid Arter 1.28 H (0.36-1.25) mmol/L Lactate (0.4-2.0) mmol/L Calcium (8.5-10.1) mg/dl Magnesium (1.8-2.4) mg/dl C-Reactive Protein (0-0.29) mg/dl NT-Pro-B Natriuret Pep (0-900) pg/ml Lipase (73-393) U/L Diagnostic Findings XR chest 1V portable CLINICAL HISTORY: Chest Pain. Lung cancer. COMPARISON STUDY: Chest CT September 30, 2020. Chest radiograph October 03, 2020. FINDINGS: Dual lead left subclavian pacemaker is in place. Dense right upper lobe consolidation has developed. Right lower lobe mass is better depicted on prior chest CT. Left upper lobe airspace opacity is developed. Left lower lobe airspace opacity has improved. There is a small right pleural effusion. There is no pneumothorax. There is underlying emphysema. IMPRESSION: 1. Interval development of dense right upper lobe consolidation and additional bilateral airspace opacities consistent with multifocal pneumonia. Radiographic follow up to ensure resolution is recommended. Right lower lobe mass obscured by airspace opacity. 2. Small right pleural effusion. 3. Emphysema. Medications Administered Amiodarone HCl/Dextrose (Nexterone / D5w) 360 mg in 200 mls @ 33.333 mls/hr IV .Q6H JARRET Stop: 11/17/20 19:09 Last Admin: 11/17/20 13:45 Dose: 1 mg/min, 33.3 mls/hr Documented by: [id number] Cosigned by: [id number] Discontinued Medications Amiodarone HCl/Dextrose (Amiodarone 150mg / 100ml D5w) Confirm Administered Dose 150 mg IV .STK-MED ONE Stop: 11/17/20 12:48 Last Admin: 11/17/20 13:19 Dose: Not Given Documented by: [id number] Diltiazem HCl (Diltiazem Hcl 5 Mg/Ml 5 Ml Vial) Confirm Administered Dose 25 mg IV .STK-MED ONE Stop: 11/17/20 12:31 Last Admin: 11/17/20 13:21 Dose: Not Given Documented by: [id number] Etomidate (Etomidate 2 Mg/Ml 20 Ml Vial) Confirm Administered Dose 40 mg IV .STK-MED ONE Stop: 11/17/20 12:37 Last Admin: 11/17/20 13:46 Dose: Not Given Documented by: [id number] Etomidate (Etomidate 2 Mg/Ml 20 Ml Vial) Confirm Administered Dose 40 mg IV .STK-MED ONE Stop: 11/17/20 12:37 Last Admin: 11/17/20 13:46 Dose: Not Given Documented by: [id number] Etomidate (Etomidate 2 Mg/Ml 20 Ml Vial) 7 mg IV .GIVEN BY PROVIDER AT BEDSIDE ONE Stop: 11/17/20 12:51 Last Admin: 11/17/20 13:42 Dose: 7 mg Documented by: [id number] Furosemide (Furosemide 40 Mg/4 Ml Vial) Confirm Administered Dose 40 mg IV .STK- MED ONE Stop: 11/17/20 14:25 Last Admin: 11/17/20 14:36 Dose: Not Given Documented by: [id number] Furosemide (Furosemide 40 Mg/4 Ml Vial) 40 mg IV NOW STA Stop: 11/17/20 14:32 Last Admin: 11/17/20 14:37 Dose: 40 mg Documented by: [id number] Piperacillin Sod/Tazobactam Sod (Zosyn) 4.5 gm in 120 mls @ 240 mls/hr IV NOW ONE Stop: 11/17/20 13:15 Last Infusion: 11/17/20 14:05 Dose: 0 mls/hr Documented by: [id number] Admin: 11/17/20 13:18 Dose: 240 mls/hr Documented by: [id number] Vancomycin HCl 1,750 mg/ (Sodium Chloride) 535 mls @ 200 mls/hr IV NOW ONE Stop: 11/17/20 15:43 Last Admin: 11/17/20 13:42 Dose: 200 mls/hr Documented by: [id number] Amiodarone HCl/Dextrose (Nexterone / D5w) 150 mg in 100 mls @ 600 mls/hr IV ONE ONE Stop: 11/17/20 13:09 Last Infusion: 11/17/20 14:04 Dose: 0 mls/hr Documented by: [id number] Cosigned by: [id number] Admin: 11/17/20 12:59 Dose: 600 mls/hr Documented by: [id number] Cosigned by: [id number] Magnesium Sulfate/Dextrose (Magnesium Sulfate / D5w) 1 gm in 100 mls @ 100 mls/hr IV NOW STA Stop: 11/17/20 14:24 Last Infusion: 11/17/20 15:16 Dose: 0 mls/hr Documented by: [id number] Admin: 11/17/20 14:37 Dose: 100 mls/hr Documented by: [id number] Home Medications Senna Plus 2 tab-cap PO QAM 05/09/20 [History Confirmed 11/17/20] atorvastatin 20 mg PO HS 05/09/20 [History Confirmed 11/17/20] benztropine 1 mg PO QAM 05/09/20 [History Confirmed 11/17/20] haloperidol 1 mg PO BID 05/09/20 [History Confirmed 11/17/20] haloperidol 2 mg PO BID 05/09/20 [History Confirmed 11/17/20] hydroxyzine HCl 25 mg PO BID 05/09/20 [History Confirmed 11/17/20] levalbuterol tartrate [Xopenex HFA] 2 inh INHALATION QID PRN 05/09/20 [History Confirmed 11/17/20] montelukast 10 mg PO QAM 05/09/20 [History Confirmed 11/17/20] tamsulosin 0.4 mg PO HS 05/09/20 [History Confirmed 11/17/20] warfarin 2 mg PO DAILY 09/19/20 [History Confirmed 11/17/20] metoprolol succinate 100 mg PO DAILY #10 tab 09/23/20 [Rx Confirmed 11/17/20] potassium chloride 20 meq PO DAILY #14 cap 09/24/20 [Rx Confirmed 09/30/20] Alvesco 1 puff INHALATION BID 09/30/20 [History Confirmed 11/17/20] omeprazole 40 mg PO BID #0 cap 10/03/20 [Rx Confirmed 11/17/20] prednisone 10 mg PO UD #160 tab 10/03/20 [Rx Confirmed 11/17/20] ipratropium-albuterol [DuoNeb] 3 ml INHALATION Q4H 11/17/20 [History Confirmed 11/17/20] Active Medications Amiodarone HCl/Dextrose (Nexterone / D5w) 360 mg in 200 mls @ 33.333 mls/hr IV .Q6H JARRET Stop: 11/17/20 19:09 Last Admin: 11/17/20 13:45 Dose: 1 mg/min, 33.3 mls/hr Documented by: Amiodarone HCl/Dextrose (Nexterone / D5w) 360 mg in 200 mls @ 16.667 mls/hr IV .Q12H JARRET Stop: 12/17/20 19:09 Magnesium Sulfate/Dextrose (Magnesium Sulfate / D5w) 1 gm in 100 mls @ 100 mls/hr IV NOW STA Stop: 11/17/20 15:48 Magnesium Sulfate/Dextrose (Magnesium Sulfate / D5w) 1 gm in 100 mls @ 100 mls/hr IV NOW STA Stop: 11/17/20 15:52 Miscellaneous Information (Vancomycin Consult Active) 1 ea N/A UD PRN PRN Reason: Consult Stop: 12/17/20 13:02 ECG Additional Comments: Undetermined rhythm Low voltage QRS Incomplete right bundle branch block Cannot rule out Anterior infarct , age undetermined Abnormal ECG Code Status & VTE Plan Code Status CODE: FULL VTE: SCD's/Heparin VTE Prophylaxis Plan VTE Prophylaxis will be ordered: Yes Critical Care Time Critical Care Time: Yes Total Critical Care Time: 80 Supervising Physician Co-Signing Physician Notes Attending Attestation & Admission Note: Pt seen & examined, chart reviewed, admit care plan d/w SID Bruce. I agree w/ the ac components of his documentation. 75yo male, [facility] [employer] inmate, with small cell lung ca dx 2020 s/p chemo/xrt, a.fib, chronic hypoxic resp failure on 4 L NC O2, COPD, schizophrenia, pulmonary HTN, chronic anticoagulation (coumadin), BPH. Presented with severe respiratory distress and rapid a.fib upon ER admission. CXR with severe right upper lobe infiltrates. Initially placed on high-flow NC without resolution of resp distress; changed to CPAP by Mr Bruce. Patient's distress improved. Placed on amiodarone infusion for rapid a.fib, started on broad-spectrum IV abx for pneumonia, COVID sent & returned negative, low magnesium replaced. Some ? of acute diastolic CHF and thus was given 40mg IV lasix x 1. PMH, PSH, allergies, meds, sochx, famhx - reviewed vitals - borderline febrile; BP low-normal; tachy; tachypneic gen - severe distress with tachypnea, retractions, accessory muscle use, dyspnea neck - ?mild JVD heart - irregular, tachy, s1 s2 lungs - severe rales right anterior chest and right axillary region; mild rales b/l bases; course BS b/l; distress abd - soft NT ND BS+ ext - no edema, mottling, cap refill 3-4 sec, pulses <1+ b/l labs reviewed imaging reviewed EKG reviewed A/P: 1. multifocal pneumonia, with RUL the worst area of consolidation - can't rule out post-obstructive pneumonia. Can't rule out MRSA pneumonia or gram negative pneumonia. angel Greenberg. CPAP/supportive care. 2. acute/chronic hypoxic respiratory failure - failed HFNC; CPAP. Consider IV steroids in jose of PO prednisone. Abx. Defer management ot ICU attending. 3. ?radiation pneumonitis - right lung - continue prednisone. 4. COPD with exacerbation - as above. Consider higher amounts of prednisone. 5. rapid a.fib - amio drip; replace low mag. Hold PO metoprolol; IV metoprolol prn. 6. hypomagnesemia - replace IV (total 3 gm); mag level am. 7. sepsis - 2nd #1. Follow cultures. 8. small cell lung cancer - s/p chemo/xrt in 2019/2020. Original cancer site - right lower lobe. 9. supratherapeutic INR - hold coumadin. INR am. Total critical care time between myself and Mr Bruce - 80 minutes, including coordination of care with ICU attending, nursing staff, respiratory. Mr Bruce also performed u/s-guided radial art stick to obtain ABG and other labs. Khang Valle MD PG Care Time/CCT Total # of Minutes Spent Total Time Spent with Patient: Total time spent is greater than 50% in coordination of care (as documented) at patient's floor/unit and/or counseling patient: Critical Care Time: Yes Total Critical Care Time: 80 Coding Level of Care Code None Medical Decision Making High Complexity Diagnoses Dyspnea R06.00 Dyspnea type: dyspnea on exertion Hypoxia R09.02 Atrial fibrillation with RVR I48.91 Pneumonitis J18.9 Pneumonia J18.9 Laterality: right Lung location: lower lobe of lung Pneumonia type: due to unspecified organism Elevated INR R79.1 Hypomagnesemia E83.42 Acute and chronic respiratory failure with hypoxia J96.21 Small cell lung 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 C34.90 Cardiac pacemaker Z95.0 Schizophrenia F20.9 BPH (benign prostatic hyperplasia) N40.0 Chronic obstructive pulmonary disease J44.9 COPD type: unspecified COPD Radiation pneumonitis J70.0 Additional Codes Critical Care Time - Critical Care Time: Yes ([id number]) Time Spent (min) 80 Comment (1) Dyspnea Dyspnea type: dyspnea on exertion Qualified Code(s): R06.00 - Dyspnea, unspecified (2) Pneumonia Laterality: right Lung location: lower lobe of lung Pneumonia type: due to unspecified organism Qualified Code(s): J18.9 - Pneumonia, unspecified organism (3) Chronic obstructive pulmonary disease COPD type: unspecified COPD Qualified Code(s): J44.9 - Chronic obstructive pulmonary disease, unspecified
[2020-11-17] MEDS ORDERED: ICU PROTOCOL FOR HYPERGLYCEMIA PRN ×2 (16:00→16:12)
[2020-11-17] MEDS ORDERED: PIPERACILL/TAZOBAC CONSULT ACTIVE PRN (16:00)
[2020-11-17] MEDS ORDERED: LEVALBUTEROL TARTRATE 15 GM HFA.AER.AD INH PRN (16:12)
[2020-11-17] MEDS ORDERED: ALBUT/IPRATROP 3MG/0.5MG NEB 3 ML VIAL INH SCH (16:12)
[2020-11-17] MEDS: FAMOTIDINE 20 MG in SYRINGE 3 ML IV SCH (16:49)
[2020-11-17] MEDS: PIPERACILLIN/TAZOBACTAM 3.375 GM in DEXTROSE 5% 100 ML IV SCH (16:49)
[2020-11-17] MEDS: METOPROLOL TARTRATE 1 MG/ML VIAL IV SCH ×3 (16:49→23:21)
[2020-11-17] MEDS: ALBUT/IPRATROP 3MG/0.5MG NEB 3 ML VIAL INH SCH (19:05)
[2020-11-17] MEDS ORDERED: FLUTICASONE FUROATE 200MCG 14 PUFFS/INHALER INH SCH (21:00)
[2020-11-17] MEDS ORDERED: METOPROLOL TARTRATE 1 MG/ML VIAL IV STA (21:00)
[2020-11-17] MEDS: ATORVASTATIN 20 MG TAB PO SCH (21:05)
[2020-11-17] MEDS: SENNA 8.6 MG TAB PO SCH (21:05)
[2020-11-17] MEDS ORDERED: FUROSEMIDE 40 MG in SYRINGE 0 ML IV ONE (22:30)
[2020-11-17] MEDS ORDERED: LORazepam 1 MG/2 ML VIAL IV STA (22:42)
[2020-11-17] MEDS: VANCOMYCIN HCL 750 MG in SODIUM CHLORIDE 0.9% 250 ML IV SCH (23:13)
[2020-11-18] MEDS ORDERED: ICU MODERATE HYPERGLYCEMIA PROTOCOL ONE (00:06)
[2020-11-18] MEDS ORDERED: PHARMACY GLYCEMIC MGMT CONSULT PRN (00:25)
[2020-11-18] MEDS ORDERED: GLUCOSE 10 TABS/TUBE PO PRN (00:30)
[2020-11-18] MEDS ORDERED: CARBOHYDRATES FOR HYPOGLYCEMIA PO PRN (00:30)
[2020-11-18] MEDS ORDERED: GLUCOSE 40% GEL 15 GM TUBE PO PRN (00:30)
[2020-11-18] MEDS ORDERED: GLUCAGON FOR INJ 1 MG VIAL SQ PRN (00:30)
[2020-11-18] MEDS ORDERED: INSULIN GLARGINE SOLOSTAR 100 UNITS/ML 3 ML PEN SC ONE ×2 (00:30→21:00)
[2020-11-18] MEDS ORDERED: DEXTROSE 50% 50 ML SYRINGE IV PRN (00:30)
[2020-11-18] MEDS: PIPERACILLIN/TAZOBACTAM 3.375 GM in DEXTROSE 5% 100 ML IV SCH ×3 (01:04→17:53)
[2020-11-18] MEDS: INSULIN ASPART 100 UNITS/ML 3 ML PEN SC SCH ×7 (01:05→23:59)
[2020-11-18] MEDS: AMIODARONE / D5W 360 MG/200 ML BAG IV SCH ×4 (02:49→21:09)
[2020-11-18] MEDS: FAMOTIDINE 20 MG in SYRINGE 3 ML IV SCH ×2 (04:03→15:46)
[2020-11-18] MEDS: METOPROLOL TARTRATE 1 MG/ML VIAL IV SCH ×4 (04:03→15:41)
[2020-11-18 05:24] LABS: Hematocrit (blood only) 30.6 % (42-52); Hemoglobin 10.2 g/dL (14.0-18.0); Immature Granulocytes # (auto) 0.05 K/uL (0.00-0.02); Immature Granulocytes % (auto) 0.3 %; Lymphocytes # (auto) 0.48 K/uL (1.2-3.4); Lymphocytes % (auto) 3.1 %; Mean Corpuscular Hemoglobin 32.3 pg (25-34); Mean Corpuscular Hgb Conc 33.3 g/dL (32-36); Mean Corpuscular Volume 96.8 fL (80-100); Mean Platelet Volume 9.6 fL (7.4-10.4); Monocytes # (auto) 0.53 K/uL (0.11-0.59); Monocytes % (auto) 3.5 %; Neutrophils # (auto) 14.28 K/uL (1.4-6.5); Neutrophils % (auto) 93.1 %; Platelet Count 180 K/uL (130-400); RDW Coefficient of Variation 16.3 % (11.5-14.5); RDW Standard Deviation 55.5 fL (36.4-46.3); Red Blood Count 3.16 M/uL (4.7-6.1); White Blood Count 15.34 K/uL (4.8-10.8)
[2020-11-18 05:41] LABS: Prothrombin Time 53.9 Seconds (9.0-12.0)
[2020-11-18 05:51] LABS: INR 6.1 (0.9-1.1)
[2020-11-18 06:05] LABS: BUN Creatinine Ratio 24.2 (10-20); Calcium 7.9 mg/dl (8.5-10.1); Creatinine Clr Calc Pharmacy 51.8 ml/min; Est GFR (African American) 67.1; Est GFR (Non-African American) 57.9; Magnesium 1.7 mg/dl (1.8-2.4); Potassium 3.5 mmol/L (3.5-5.1)
[2020-11-18] MEDS: MAGNESIUM SULFATE / D5W 1 GM/100 ML BAG IV SCH ×2 (06:36→08:15)
--- NOTE | 2020-11-18 07:00 | Electrocardiogram Report ---
Test Reason : Blood Pressure : / mmHG Vent. Rate : 143 BPM Atrial Rate : 053 BPM P-R Int : 144 ms QRS Dur : 094 ms QT Int : 430 ms P-R-T Axes : 000 084 -61 degrees QTc Int : 663 ms Poor data quality, interpretation may be adversely affected Atrial fibrillation with rapid ventricular response Low voltage QRS Incomplete right bundle branch block Septal infarct Abnormal ECG When compared with ECG of 03-OCT-2020 14:10, HR has increased by 50 bpm Confirmed by Uriel Bose ([id number]) on 11/18/2020 7:00:29 AM Referred By: Luis Miguel OLGUIN Confirmed By:Uriel Bose
--- NOTE | 2020-11-18 07:18 | XRay Report ---
XR chest 1V portable HISTORY: 75 years-old Male resp failure acute respiratory failure COMPARISON: Chest radiograph 11/17/2020 TECHNIQUE: Portable AP view of the chest FINDINGS: Cardiac silhouette is enlarged. Left subclavian pacer. No pneumothorax. Small right pleural effusion has mildly increased in size. Emphysema. Right greater than left bilateral airspace opacities redemon strated. There is mildly improved aeration of the right midlung. No pneumothorax. Degenerative change s of the shoulders and spine. IMPRESSION: 1. Right greater than left bilateral airspace opacities redemonstrated with mildly improved aeration of the right midlung. 2. Small right pleural effusion has mildly increased in size. ACT 112: Negative or not required by law. The above report was generated using voice recognition software. It may contain grammatical, syntax o r spelling errors. Electronically signed by: Eduardo May M.D. 11/18/2020 7:16 AM
[2020-11-18] MEDS: ALBUT/IPRATROP 3MG/0.5MG NEB 3 ML VIAL INH SCH ×4 (07:37→19:19)
[2020-11-18] MEDS: predniSONE 10 MG TABLET PO SCH (08:16)
[2020-11-18] MEDS: DOCUSATE SODIUM/SENNA 50/8.6MG TAB PO SCH (08:16)
[2020-11-18] MEDS: POTASSIUM CHLORIDE CRTAB 20 MEQ TABCR PO SCH (08:16)
[2020-11-18] MEDS ORDERED: PHYTONADIONE 5 MG TAB PO STA (09:03)
--- NOTE | 2020-11-18 09:03 | Critical Care Progress Note ---
Date of Service November 18, 2020 Assessment & Plan (1) Pneumonitis: (2) Acute hypoxemic respiratory failure: (3) Elevated INR: Impression: 75-year-old male with history of advanced small cell lung cancer status post radiation therapy and chemotherapy. He completed therapy in August. He was admitted to the facility in September with a pleural effusion and underwent drainage at that point time. He presents today with atrial fibrillation with rapid ventricular response and increasing shortness of breath with a new right upper lobe airspace opacity and supratherapeutic INR. Recommendations: 1. Neurologic: No current issues. Continue to follow at this point time. 2. Respiratory: Hypoxemic respiratory failure secondary to airspace opacity in the right upper lobe. He sounds congested and may be slightly fluid overloaded. We will try noninvasive positive pressure ventilation given that there may be some fluid overload associated with this. Discussed with the patient and he would be amenable to intubation mechanical ventilation if necessary. It is unclear whether the airspace opacity may represent delayed radiation pneumonitis versus bacterial infection versus chemotherapeutic pulmonary toxicity. Conceivably could consider bronchoscopy with BAL to guide therapy however the patient's hemodynamic status currently would not allow for that and it would likely require intubation mechanical ventilation. We will place an order for CT of his chest without contrast to evaluate for impression obstructive pneumonia. 3. Cardiovascular: Atrial fibrillation with rapid ventricular response. Cardiology is assisting in management. Currently on an amiodarone drip. He does have a pacemaker. Blood pressures are adequate at this time with mean arterial pressures of 98. We will start p.o. metoprolol once he is able to take p.o. medications. Currently on IV metoprolol. I am adding an IV digoxin load. We will ask for pharmacy assistance with this. Will order for an echocardiogram. Echo from 09/29 demonstrates a normal EF of 55 to 60%. Right ventricle systolic pressure elevated to greater than 60 mmHg. We will hold on IV diuretics today. 4. ID: Procalcitonin was unremarkable. Again the infiltrate could represent pneumonia versus pneumonitis. Nasal MRSA is positive. Continue vancomycin and Zosyn. Blood cultures negative thus far. Will obtain sputum cultures. Will follow clinically. 5. Heme-onc: Elevated INR. Hold additional Coumadin at this point time. We will give a 2.5 mg dose of vitamin K. The patient's current oncologic status is not entirely clear. There are no notes from hematology oncology or radiation oncology since September in the EMR and I am unclear if there are additional clinical notes that were not privy to at this point in time. The patient does not relate any recent chemotherapy or radiation therapy. I have placed a co nsult for palliative care and oncology. I discussed goals of care with the patient and at this time he would like to remain a full code. 6. Endocrine: Glycemic control per ICU protocol 7. GI: No current issues. 8. Renal: Serum creatinine appears stable compared to prior. Replacing electrolytes to keep potassium above 4 magnesium above 2 especially in light of his atrial fibrillation. CRITICAL CARE TIME - I have personally spent 36 minutes of critical care time in the direct management of this patient. This is a life/limb threatening event. This includes time spent evaluating patient, direct bedside care, chart review, placing orders, interpretation of diagnostic studies, discussion with consultants, patient, and family members, as well as other required patient management activities. This time is exclusive of all separately billable procedures, and teaching time and separate from and in addition to any other critical care service time. (4) Chronic obstructive pulmonary disease: (5) Acute and chronic respiratory failure with hypoxia: (6) Small cell lung 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: Admission and Anticipated Discharge Date Admission Date: November 17, 2020 Subjective Patient seen and examined this morning. He is currently on CPAP. He is difficult to understand due to his weakness and the CPAP mask. His heart rate is in the 110s. Oxygen saturation of 92%. Currently on 50% FiO2. Following commands. He is able to tell me the month and year. Review of Systems Review of Systems: Review of systems are limited due to patient's condition. No obvious pain noted. He was trying to pull the mask off. Physical Exam Constitutional: + acute distress, + thin, + cachectic and + frail appearing Neck: trachea midline, no thyromegaly Respiratory: + respiratory distress and + labored breathing Auscultation: + rales; no wheezes Cardiovascular: RRR, no murmur, no edema Gastrointestinal (Abdomen): normal bowel sounds, soft, nontender, no he patosplenomegaly Musculoskeletal: Extremities: extremities normal to inspection Skin: no rashes, warm and dry Neurologic: Nonfocal exam Lymphatic: no cervical lymphadenopathy Results & Data Results & Data ([facility]) Vital Signs (Past 12 Hours) Vital Signs Temp Pulse Pulse Resp BP Pulse Ox 11/18/20 07:40 113 H 117 H 14 124/95 93 11/18/20 06:19 98.8 F 110 H 15 122/90 90 11/18/20 06:15 98.8 F 104 H 23 91 11/18/20 06:04 98.8 F 118 H 18 108/87 92 11/18/20 06:00 98.8 F 124 H 15 92 11/18/20 05:49 98.8 F 115 H 15 103/80 92 11/18/20 05:45 99.0 F 126 H 17 91 11/18/20 05:34 99.0 F 107 H 15 119/90 92 11/18/20 05:30 99.0 F 104 H 18 91 11/18/20 05:19 99.0 F 105 H 12 109/90 93 11/18/20 05:15 99.0 F 107 H 13 92 11/18/20 05:04 99.0 F 122 H 16 116/89 92 11/18/20 05:00 99.0 F 114 H 15 92 11/18/20 04:49 99.0 F 112 H 25 H 112/88 11/18/20 04:45 99.0 F 100 H 22 93 11/18/20 04:34 99.0 F 102 H 16 117/92 91 11/18/20 04:30 99.0 F 111 H 15 92 11/18/20 04:28 108 H 15 92 11/18/20 04:19 99.0 F 118 H 16 111/93 94 11/18/20 04:15 99.0 F 119 H 17 91 11/18/20 04:04 99.1 F 109 H 18 115/93 89 L 11/18/20 04:03 111 H 109/82 11/18/20 04:00 99.0 F 117 H 17 92 11/18/20 03:49 99.1 F 122 H 15 109/82 93 11/18/20 03:45 99.0 F 112 H 16 92 11/18/20 03:34 99.1 F 102 H 14 117/91 92 11/18/20 03:30 99.0 F 123 H 22 92 11/18/20 03:19 99.1 F 119 H 15 104/73 83 L 11/18/20 03:15 99.0 F 115 H 19 87 L 11/18/20 03:05 99.0 F 106 H 18 119/52 L 89 L 11/18/20 03:00 99.0 F 121 H 15 88 L 11/18/20 02:49 99.0 F 124 H 15 108/89 90 11/18/20 02:45 99.0 F 109 H 21 88 L 11/18/20 02:34 99.0 F 117 H 13 116/85 92 11/18/20 02:30 99.0 F 111 H 17 90 11/18/20 02:20 115 H 20 92 11/18/20 02:19 99.0 F 112 H 14 108/85 92 11/18/20 02:15 99.0 F 111 H 31 H 92 11/18/20 02:12 99.0 F 120 H 25 H 129/89 92 11/18/20 02:05 99.0 F 110 H 27 H 93 11/18/20 02:04 99.0 F 120 H 26 H 131/94 93 11/18/20 02:00 99.0 F 113 H 14 93 11/18/20 01:49 99.0 F 104 H 15 113/97 92 11/18/20 01:45 99.0 F 115 H 16 93 11/18/20 01:34 98.8 F 120 H 14 117/87 92 11/18/20 01:30 99.0 F 134 H 14 91 11/18/20 01:19 99.0 F 109 H 15 98/82 L 90 11/18/20 01:15 99.0 F 116 H 14 91 11/18/20 01:04 98.8 F 128 H 20 105/76 89 L 11/18/20 01:00 98.8 F 118 H 15 86 L 11/18/20 00:49 98.8 F 123 H 13 98/78 L 90 11/18/20 00:45 98.8 F 127 H 15 89 L 11/18/20 00:34 98.8 F 119 H 13 105/76 89 L 11/18/20 00:30 98.8 F 132 H 18 90 11/18/20 00:19 98.8 F 118 H 14 111/87 90 11/18/20 00:15 98.8 F 124 H 14 90 11/18/20 00:03 98.8 F 100 H 18 104/89 91 11/18/20 00:00 98.8 F 116 H 15 89 L 11/17/20 23:49 98.8 F 112 H 21 111/89 85 L 11/17/20 23:45 98.8 F 116 H 15 90 11/17/20 23:34 98.8 F 103 H 16 96/79 L 89 L 11/17/20 23:33 118 H 11/17/20 23:30 98.8 F 130 H 13 88 L 11/17/20 23:21 112 H 108/89 11/17/20 23:20 98.8 F 108 H 14 89 L 11/17/20 23:12 98.8 F 122 H 16 108/89 88 L 11/17/20 23:11 98.8 F 124 H 18 90 11/17/20 23:09 98.8 F 124 H 19 87/70 L 88 L 11/17/20 23:04 98.8 F 118 H 17 95/80 L 90 11/17/20 23:00 98.8 F 108 H 24 91 11/17/20 22:50 98.6 F 110 H 23 86 L 11/17/20 22:40 98.6 F 118 H 22 91 11/17/20 22:30 98.6 F 124 H 23 92 11/17/20 22:20 98.6 F 116 H 27 H 91 11/17/20 22:10 98.6 F 119 H 30 H 88 L 11/17/20 22:08 121 H 24 93 11/17/20 22:03 98.6 F 121 H 22 115/84 92 11/17/20 22:00 98.6 F 112 H 18 97 11/17/20 21:04 98.6 F 121 H 15 104/75 92 11/17/20 21:01 98.6 F 122 H 16 98 I reviewed the vital signs, labs and imaging Coding Level of Care Code Critical Care 1st 30-74 mins Diagnoses Pneumonitis J18.9 Acute hypoxemic respiratory failure J96.01 Elevated INR R79.1 Chronic obstructive pulmonary disease J44.9 COPD type: unspecified COPD Acute and chronic respiratory failure with hypoxia J96.21 Small cell lung 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 C34.90 Time Spent (min) 36 (1) Chronic obstructive pulmonary disease COPD type: unspecified COPD Qualified Code(s): J44.9 - Chronic obstructive pulmonary disease, unspecified
[2020-11-18] MEDS ORDERED: DIGOXIN 125 MCG in SYRINGE 9.5 ML IV STA (09:04)
[2020-11-18] MEDS ORDERED: 0.2 MICRON FILTER SET 1 EA IV ONE (10:16)
[2020-11-18] MEDS ORDERED: AMIODARONE / D5W 150 MG/100 ML BAG IV STA (10:16)
--- NOTE | 2020-11-18 10:20 | Cardiology Consultation ---
Date of Consultation November 18, 2020 Assessment & Plan (1) Paroxysmal atrial fibrillation: (2) Atrial fibrillation with RVR: (3) Acute hypoxemic respiratory failure: (4) Cardiac pacemaker: (5) Anticoagulant long-term use: (6) SSS (sick sinus syndrome): ASSESSMENT/PLAN: 1. Paroxysmal atrial fibrillation with rapid ventricular response: He was successfully converted in the ER with DC CV and amiodarone was initiated but he is once again in AFib with RVR. Blood pressure has improved. Resume beta- dilip but will use tartrate instead of metoprolol succinate in case his blood pressures become an issue. Start metoprolol 50 mg twice daily. Re bolus amiodarone 150 mg daily to see if can regain sinus rhythm while he is acutely ill with pulmonary issues. Continue anticoagulation for stroke risk reduction. Coumadin is currently held due to the fact that INR is supratherapeutic. If INR drops below 2, would start heparin drip. 2. Acute hypoxemic respiratory failure: He does not appear to be significantly hypervolemic but would try to keep I&Os negative while monitoring renal function. CT imaging of the chest was pending as per critical care team to further evaluate the airspace opacities. He also has small cell lung carcinoma. 3. Sick sinus syndrome s/p Dual chamber pacemaker: Follows with Dr. Calle of electrophysiology. 4. Anticoagulation therapy: INR supratherapeutic. Coumadin is being held for this reason. While acutely ill, would consider starting heparin drip when INR approaches 2. 5. Disposition: Cardiology will continue to follow. Patient care discussed with nursing staff and critical care attending, Dr. Paredes. 40 min critical care time. Today's visit includes [id number] time, managing anti-arrhythmic therapy, coordinating care, discussion with nursing staff and critical care team/attending, reviewing records and images. History of Present Illness Reason for Consultation: AFib with RVR and pacemaker Requesting Physician: ISD Piña Attending Physician: Joe Rene DO History of Present Illness Mr. 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 His primary incident engineer is Dr. Calle, of electrophysiology. He was admitted on 11/17/2020 with acute hypoxemic respiratory failure with concern for radiation pneumonitis verses pneumonia versus chemotherapeutic pulmonary toxicity as per the critical care team. He was also noted to be in AFib with RVR. While in the emergency department, he was quite tachycardic with heart rates greater than 150 per ED physician conversation. His systolic blood pressure demonstrated mild hypotension in the 90s and 1 recorded blood pressure of 86/54 mmHg. For this reason, the emergency department physician emergently cardioverted him and regained AV paced rhythm. The decision was made at that time to start amiodarone given his acute pulmonary issues and the likelihood that AFib with RVR would return. AFib did once again developed and he has been tachycardic on an amiodarone drip. He has been placed on BiPAP given his respiratory issues. He denies chest pain. He admits that he is short of breath but feels better on current therapy compared to presentation. He denies syncope, near-syncope, edema, or bleeding. He admits that he does feel palpitations periodically but denied them at the time of our visit earlier this morning. He has been receiving intermittent doses of intravenous metoprolol. He takes metoprolol succinate 100 mg daily at home. His blood pressure has been much improved and normotensive. Nursing staff reports that there has not been issues with hypotension today. He has not required pressor support. An echocardiogram was ordered but pending. CT scan of the chest was ordered but pending at the time of our visit today. Review of systems: As above. Review of systems otherwise negative/unremarkable. Family history: Uncertain. Communication was difficult given that he was on BiPAP. Family history was inquired but his answer was not discernible. Social history: He denies smoking but according to records, he smoked approximately 44 years. He denies alcohol. He is currently incarcerated. Two longterm guards were at the bedside. Allergies Allergy/AdvReac Type Severity Reaction Status Date / Time No Known Allergies Allergy Verified 09/30/20 01:37 Home Medications Medication Instructions Recorded Confirmed Type Senna Plus 2 tab-cap PO QAM 05/09/20 11/17/20 History atorvastatin 20 mg PO HS 05/09/20 11/17/20 History benztropine 1 mg PO QAM 10/01/20 04/11/21 History haloperidol 1 mg PO BID 05/09/20 11/17/20 History haloperidol 2 mg PO BID 05/09/20 11/17/20 History hydroxyzine HCl 25 mg PO BID 05/09/20 11/17/20 History levalbuterol tartrate [Xopenex HFA] 2 inh INHALATION QID PRN 05/09/20 11/17/20 History montelukast 10 mg PO QAM 05/09/20 11/17/20 History tamsulosin 0.4 mg PO HS 05/09/20 11/17/20 History warfarin 2 mg PO DAILY 09/19/20 11/17/20 History metoprolol succinate 100 mg PO DAILY #10 tab 09/23/20 11/17/20 Rx potassium chloride 20 meq PO DAILY #14 cap 09/24/20 09/30/20 Rx Alvesco 1 puff INHALATION BID 09/30/20 11/17/20 History omeprazole 40 mg PO BID #0 cap 10/03/20 11/17/20 Rx prednisone 10 mg PO UD #160 tab 10/03/20 11/17/20 Rx ipratropium-albuterol [DuoNeb] 3 ml INHALATION Q4H 11/17/20 11/17/20 History Patient History Medical History Anxiety Atrial fibrillation ANTICOAGULATED WITH COUMADIN Chronic obstructive pulmonary disease CKD (chronic kidney disease) stage 2, GFR 60-89 ml/min Hyperlipidemia Hypertension Inmate in correctional facility Nocturia Paroxysmal atrial fibrillation Phlebitis DEEP LOWER EXTREMITY. Pulmonary mass Radiation pneumonitis Shortness of breath Sick sinus syndrome s/p insertion of PPM 06/02/16 Small cell lung 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 dx 05/2020, right sided. Syncope Implantation of dual-chamber Med[employer]onic pacemaker 06/02/2016 Surgical History History of appendectomy History of tonsillectomy Status post biventricular cardiac pacemaker insertion 2015. Has followed with Dr. Calle. Family History Other Family history unknown Social History Smoking Status: Former smoker Tobacco Type: Cigarettes Age Started Using Tobacco: 11; Age Quit Using Tobacco: 55; packs per day: 1; Years Smoked: 44; Cigarettes Per Day: 20; Number of Years Since Quit: 20; Second Hand Exposure: No; Hx Alcohol Use: No Hx Substance Use: No Preferred Language: Malawian Communication Ability: Effective Visual Impairment: No Limitations Hearing Ability: Normal Pairer Inspector Required: No Beliefs That Will Affect Care: None marital status: Single Current Living Situation: Other Current Living Situation Comment: Snf current occupational status: unemployed Feels Safe at Home: Declines to Answer caffeine: No during the past year weight has: remained stable Dental Care, Regularly: No Seatbelt Use: always Sunscreen Use: No Assistive Devices: BiPap Physical Exam Physical Exam: Gen.: No acute distress while on BiPAP. Alert. HEENT: Anicteric sclera. Neck: No appreciable JVD. No bruits auscultated, however difficult to auscultate while on BiPAP. Normal carotid upstrokes bilaterally. Cardiac: PMI was nondisplaced. No ventricular heave. Irregularly irregular and tachycardic. Normal S1-S2. No murmurs, rubs, or gallops. Pulmonary: Coarse breath sounds throughout the right lung field. Left lung was clear on anterior auscultation. Abdomen: Soft, nontender, nondistended, with hypoactive bowel sounds. No bruits noted. Extremities: 2+ right radial pulse. Left radial pulse not palpable. 2+ posterior tibialis pulses bilaterally. Trace bilateral lower extremity edema. No cyanosis. Psychiatric: Affect appears appropriate. Results & Data ([facility]) Vital Signs (Past 12 Hours) Vital Signs Temp Pulse Pulse Resp BP Pulse Ox 11/18/20 07:40 113 H 117 H 14 124/95 93 11/18/20 06:19 37.1 C 110 H 15 122/90 90 11/18/20 06:15 37.1 C 104 H 23 91 11/18/20 06:04 37.1 C 118 H 18 108/87 92 11/18/20 06:00 37.1 C 124 H 15 92 11/18/20 05:49 37.1 C 115 H 15 103/80 92 11/18/20 05:45 37.2 C 126 H 17 91 11/18/20 05:34 37.2 C 107 H 15 119/90 92 11/18/20 05:30 37.2 C 104 H 18 91 11/18/20 05:19 37.2 C 105 H 12 109/90 93 11/18/20 05:15 37.2 C 107 H 13 92 11/18/20 05:04 37.2 C 122 H 16 116/89 92 11/18/20 05:00 37.2 C 114 H 15 92 11/18/20 04:49 37.2 C 112 H 25 H 112/88 11/18/20 04:45 37.2 C 100 H 22 93 11/18/20 04:34 37.2 C 102 H 16 117/92 91 11/18/20 04:30 37.2 C 111 H 15 92 11/18/20 04:28 108 H 15 92 11/18/20 04:19 37.2 C 118 H 16 111/93 94 11/18/20 04:15 37.2 C 119 H 17 91 11/18/20 04:04 37.3 C 109 H 18 115/93 89 L 11/18/20 04:03 111 H 109/82 11/18/20 04:00 37.2 C 117 H 17 92 11/18/20 03:49 37.3 C 122 H 15 109/82 93 11/18/20 03:45 37.2 C 112 H 16 92 11/18/20 03:34 37.3 C 102 H 14 117/91 92 11/18/20 03:30 37.2 C 123 H 22 92 11/18/20 03:19 37.3 C 119 H 15 104/73 83 L 11/18/20 03:15 37.2 C 115 H 19 87 L 11/18/20 03:05 37.2 C 106 H 18 119/52 L 89 L 11/18/20 03:00 37.2 C 121 H 15 88 L 11/18/20 02:49 37.2 C 124 H 15 108/89 90 11/18/20 02:45 37.2 C 109 H 21 88 L 11/18/20 02:34 37.2 C 117 H 13 116/85 92 11/18/20 02:30 37.2 C 111 H 17 90 11/18/20 02:20 115 H 20 92 11/18/20 02:19 37.2 C 112 H 14 108/85 92 11/18/20 02:15 37.2 C 111 H 31 H 92 11/18/20 02:12 37.2 C 120 H 25 H 129/89 92 11/18/20 02:05 37.2 C 110 H 27 H 93 11/18/20 02:04 37.2 C 120 H 26 H 131/94 93 11/18/20 02:00 37.2 C 113 H 14 93 11/18/20 01:49 37.2 C 104 H 15 113/97 92 11/18/20 01:45 37.2 C 115 H 16 93 11/18/20 01:34 37.1 C 120 H 14 117/87 92 11/18/20 01:30 37.2 C 134 H 14 91 11/18/20 01:19 37.2 C 109 H 15 98/82 L 90 11/18/20 01:15 37.2 C 116 H 14 91 11/18/20 01:04 37.1 C 128 H 20 105/76 89 L 11/18/20 01:00 37.1 C 118 H 15 86 L 11/18/20 00:49 37.1 C 123 H 13 98/78 L 90 11/18/20 00:45 37.1 C 127 H 15 89 L 11/18/20 00:34 37.1 C 119 H 13 105/76 89 L 11/18/20 00:30 37.1 C 132 H 18 90 11/18/20 00:19 37.1 C 118 H 14 111/87 90 11/18/20 00:15 37.1 C 124 H 14 90 11/18/20 00:03 37.1 C 100 H 18 104/89 91 11/18/20 00:00 37.1 C 116 H 15 89 L 11/17/20 23:49 37.1 C 112 H 21 111/89 85 L 11/17/20 23:45 37.1 C 116 H 15 90 11/17/20 23:34 37.1 C 103 H 16 96/79 L 89 L 11/17/20 23:33 118 H 11/17/20 23:30 37.1 C 130 H 13 88 L 11/17/20 23:21 112 H 108/89 11/17/20 23:20 37.1 C 108 H 14 89 L 11/17/20 23:12 37.1 C 122 H 16 108/89 88 L 11/17/20 23:11 37.1 C 124 H 18 90 11/17/20 23:09 37.1 C 124 H 19 87/70 L 88 L 11/17/20 23:04 37.1 C 118 H 17 95/80 L 90 11/17/20 23:00 37.1 C 108 H 24 91 11/17/20 22:50 37.0 C 110 H 23 86 L 11/17/20 22:40 37.0 C 118 H 22 91 11/17/20 22:30 37.0 C 124 H 23 92 11/17/20 22:20 37.0 C 116 H 27 H 91 Intake & Output 11/16/20 11/17/20 11/18/20 11/19/20 06:59 06:59 06:59 06:59 Intake Total 1916.72 / 1916.72 263.985 / 263.985 Output Total 2750 / 2750 Balance -833.28 / -833.28 263.985 / 263.985 Weight 173 lb 15.115 oz Laboratory Results Laboratory Results - last 24 hr 11/17/20 11/17/20 11/17/20 12:47 12:47 12:47 WBC 15.59 H RBC 3.11 L Hgb 10.8 L POC Hgb Hct 31.5 L POC Hct MCV 101.3 H MCH 34.7 H MCHC 34.3 RDW Std Deviation 56.5 H RDW Coeff of Ivis 18.0 H Plt Count 219 MPV 9.8 Immature Gran % (Auto) 0.3 Neut % (Auto) 94.5 Lymph % (Auto) 4.2 Collier % (Auto) 1.0 Eos % (Auto) 0.0 Baso % (Auto) 0.0 Neut # (Auto) 14.75 H Lymph # (Auto) 0.65 L Collier # (Auto) 0.15 Eos # (Auto) 0.00 Baso # (Auto) 0.00 Immature Gran # (Auto) 0.04 H Absolute Nucleated RBC 0.03 H Nucleated RBC % (auto) 0.2 PT INR APTT PTT Ratio POC pH POC pCO2 POC pO2 POC HCO3 POC Base Excess POC ABG O2 Sat VBG pH VBG pCO2 VBG pO2 VBG HCO3 VBG O2 Saturation VBG Base Excess Barometric Pressure POC Sodium Sodium 136 POC Potassium Potassium 4.4 POC Chloride Chloride 101 Carbon Dioxide 29 POC Total CO2 Anion Gap 6.0 POC Anion Gap POC BUN BUN 33 H Creatinine 1.43 H POC Creatinine Est Cr Clr Drug Dosing 48.0 Est GFR ( Amer) 55.9 Est GFR (Non-Af Amer) 48.2 BUN/Creatinine Ratio 23.3 H Glucose 160 H POC Glucose POC Glucose (other) POC Lactic Acid Arter Lactate 2.6 H* Calcium 8.3 L POC Ioniz Calcium Nury Magnesium 1.5 L Troponin I 0.029 C-Reactive Protein NT-Pro-B Natriuret Pep 92566 H Lipase 51 L Procalcitonin Nasal Screen MRSA (PCR) COVID-19 Eval Order SARS-CoV-2 (PCR) Influenza Type A (PCR) Influenza Type B (PCR) RSV (RT-PCR) 11/17/20 11/17/20 11/17/20 12:47 12:47 12:47 WBC RBC Hgb POC Hgb Hct POC Hct MCV MCH MCHC RDW Std Deviation RDW Coeff of Ivis Plt Count MPV Immature Gran % (Auto) Neut % (Auto) Lymph % (Auto) Collier % (Auto) Eos % (Auto) Baso % (Auto) Neut # (Auto) Lymph # (Auto) Collier # (Auto) Eos # (Auto) Baso # (Auto) Immature Gran # (Auto) Absolute Nucleated RBC Nucleated RBC % (auto) PT INR APTT PTT Ratio POC pH POC pCO2 POC pO2 POC HCO3 POC Base Excess POC ABG O2 Sat VBG pH 7.36 VBG pCO2 54 H VBG pO2 14 VBG HCO3 30 VBG O2 Saturation < 60.0 VBG Base Excess 3.8 Barometric Pressure 718.8 POC Sodium Sodium POC Potassium Potassium POC Chloride Chloride Carbon Dioxide POC Total CO2 Anion Gap POC Anion Gap POC BUN BUN Creatinine POC Creatinine Est Cr Clr Drug Dosing Est GFR ( Amer) Est GFR (Non-Af Amer) BUN/Creatinine Ratio Glucose POC Glucose POC Glucose (other) POC Lactic Acid Arter Lactate Calcium POC Ioniz Calcium Nury Magnesium Troponin I C-Reactive Protein 12.90 H NT-Pro-B Natriuret Pep Lipase Procalcitonin 0.34 Nasal Screen MRSA (PCR) COVID-19 Eval Order SARS-CoV-2 (PCR) Influenza Type A (PCR) Influenza Type B (PCR) RSV (RT-PCR) 11/17/20 11/17/20 11/17/20 12:49 12:50 13:14 WBC RBC Hgb POC Hgb 10.5 L Hct POC Hct 31 L MCV MCH MCHC RDW Std Deviation RDW Coeff of Ivis Plt Count MPV Immature Gran % (Auto) Neut % (Auto) Lymph % (Auto) Collier % (Auto) Eos % (Auto) Baso % (Auto) Neut # (Auto) Lymph # (Auto) Collier # (Auto) Eos # (Auto) Baso # (Auto) Immature Gran # (Auto) Absolute Nucleated RBC Nucleated RBC % (auto) PT 49.3 H INR 5.6 H* APTT 44.5 H PTT Ratio 1.7 POC pH POC pCO2 POC pO2 POC HCO3 POC Base Excess POC ABG O2 Sat VBG pH VBG pCO2 VBG pO2 VBG HCO3 VBG O2 Saturation VBG Base Excess Barometric Pressure POC Sodium 135 Sodium POC Potassium 4.2 Potassium POC Chloride 97 L Chloride Carbon Dioxide POC Total CO2 31 Anion Gap POC Anion Gap 13.0 L POC BUN 30 H BUN Creatinine POC Creatinine 1.4 H Est Cr Clr Drug Dosing Est GFR ( Amer) Est GFR (Non-Af Amer) BUN/Creatinine Ratio Glucose POC Glucose POC Glucose (other) 155 H POC Lactic Acid Arter Lactate Calcium POC Ioniz Calcium Nury 1.16 Magnesium Troponin I C-Reactive Protein NT-Pro-B Natriuret Pep Lipase Procalcitonin Nasal Screen MRSA (PCR) COVID-19 Eval Order [facility]FluRsv at [facility] SARS-CoV-2 (PCR) Influenza Type A (PCR) Influenza Type B (PCR) RSV (RT-PCR) 11/17/20 11/17/20 11/17/20 13:14 14:55 14:59 WBC RBC Hgb POC Hgb 8.8 L Hct POC Hct 26 L MCV MCH MCHC RDW Std Deviation RDW Coeff of Ivis Plt Count MPV Immature Gran % (Auto) Neut % (Auto) Lymph % (Auto) Collier % (Auto) Eos % (Auto) Baso % (Auto) Neut # (Auto) Lymph # (Auto) Collier # (Auto) Eos # (Auto) Baso # (Auto) Immature Gran # (Auto) Absolute Nucleated RBC Nucleated RBC % (auto) PT INR APTT PTT Ratio POC pH 7.53 H* POC pCO2 31 L POC pO2 115 H POC HCO3 25 H POC Base Excess 3.0 H POC ABG O2 Sat 99.0 H VBG pH VBG pCO2 VBG pO2 VBG HCO3 VBG O2 Saturation VBG Base Excess Barometric Pressure POC Sodium 136 Sodium POC Potassium 4.0 Potassium POC Chloride Chloride Carbon Dioxide POC Total CO2 26 Anion Gap POC Anion Gap POC BUN BUN Creatinine POC Creatinine Est Cr Clr Drug Dosing Est GFR ( Amer) Est GFR (Non-Af Amer) BUN/Creatinine Ratio Glucose POC Glucose POC Glucose (other) POC Lactic Acid Arter 1.28 H Lactate Calcium POC Ioniz Calcium Nury Magnesium Troponin I C-Reactive Protein NT-Pro-B Natriuret Pep Lipase Procalcitonin Nasal Screen MRSA (PCR) COVID-19 Eval Order SARS-CoV-2 (PCR) NEGATIVE Influenza Type A (PCR) Negative Influenza Type B (PCR) Negative RSV (RT-PCR) Negative 11/17/20 11/17/20 11/18/20 15:58 23:56 03:59 WBC RBC Hgb POC Hgb Hct POC Hct MCV MCH MCHC RDW Std Deviation RDW Coeff of Ivis Plt Count MPV Immature Gran % (Auto) Neut % (Auto) Lymph % (Auto) Collier % (Auto) Eos % (Auto) Baso % (Auto) Neut # (Auto) Lymph # (Auto) Collier # (Auto) Eos # (Auto) Baso # (Auto) Immature Gran # (Auto) Absolute Nucleated RBC Nucleated RBC % (auto) PT INR APTT PTT Ratio POC pH POC pCO2 POC pO2 POC HCO3 POC Base Excess POC ABG O2 Sat VBG pH VBG pCO2 VBG pO2 VBG HCO3 VBG O2 Saturation VBG Base Excess Barometric Pressure POC Sodium Sodium POC Potassium Potassium POC Chloride Chloride Carbon Dioxide POC Total CO2 Anion Gap POC Anion Gap POC BUN BUN Creatinine POC Creatinine Est Cr Clr Drug Dosing Est GFR ( Amer) Est GFR (Non-Af Amer) BUN/Creatinine Ratio Glucose POC Glucose 184 H 154 H POC Glucose (other) POC Lactic Acid Arter Lactate Calcium POC Ioniz Calcium Nury Magnesium Troponin I C-Reactive Protein NT-Pro-B Natriuret Pep Lipase Procalcitonin Nasal Screen MRSA (PCR) Positive A COVID-19 Eval Order SARS-CoV-2 (PCR) Influenza Type A (PCR) Influenza Type B (PCR) RSV (RT-PCR) 11/18/20 11/18/20 11/18/20 05:09 05:09 05:09 WBC 15.34 H RBC 3.16 L Hgb 10.2 L POC Hgb Hct 30.6 L POC Hct MCV 96.8 MCH 32.3 MCHC 33.3 RDW Std Deviation 55.5 H RDW Coeff of Ivis 16.3 H Plt Count 180 MPV 9.6 Immature Gran % (Auto) 0.3 Neut % (Auto) 93.1 Lymph % (Auto) 3.1 Collier % (Auto) 3.5 Eos % (Auto) 0.0 Baso % (Auto) 0.0 Neut # (Auto) 14.28 H Lymph # (Auto) 0.48 L Collier # (Auto) 0.53 Eos # (Auto) 0.00 Baso # (Auto) 0.00 Immature Gran # (Auto) 0.05 H Absolute Nucleated RBC Nucleated RBC % (auto) PT 53.9 H INR 6.1 H* APTT PTT Ratio POC pH POC pCO2 POC pO2 POC HCO3 POC Base Excess POC ABG O2 Sat VBG pH VBG pCO2 VBG pO2 VBG HCO3 VBG O2 Saturation VBG Base Excess Barometric Pressure POC Sodium Sodium 138 POC Potassium Potassium 3.5 D POC Chloride Chloride 103 Carbon Dioxide 31 POC Total CO2 Anion Gap 4.0 POC Anion Gap POC BUN BUN 30 H Creatinine 1.23 POC Creatinine Est Cr Clr Drug Dosing 51.8 Est GFR ( Amer) 67.1 Est GFR (Non-Af Amer) 57.9 BUN/Creatinine Ratio 24.2 H Glucose 144 H POC Glucose POC Glucose (other) POC Lactic Acid Arter Lactate Calcium 7.9 L POC Ioniz Calcium Nury Magnesium 1.7 L Troponin I C-Reactive Protein NT-Pro-B Natriuret Pep Lipase Procalcitonin Nasal Screen MRSA (PCR) COVID-19 Eval Order SARS-CoV-2 (PCR) Influenza Type A (PCR) Influenza Type B (PCR) RSV (RT-PCR) 11/18/20 08:14 WBC RBC Hgb POC Hgb Hct POC Hct MCV MCH MCHC RDW Std Deviation RDW Coeff of Ivis Plt Count MPV Immature Gran % (Auto) Neut % (Auto) Lymph % (Auto) Collier % (Auto) Eos % (Auto) Baso % (Auto) Neut # (Auto) Lymph # (Auto) Collier # (Auto) Eos # (Auto) Baso # (Auto) Immature Gran # (Auto) Absolute Nucleated RBC Nucleated RBC % (auto) PT INR APTT PTT Ratio POC pH POC pCO2 POC pO2 POC HCO3 POC Base Excess POC ABG O2 Sat VBG pH VBG pCO2 VBG pO2 VBG HCO3 VBG O2 Saturation VBG Base Excess Barometric Pressure POC Sodium Sodium POC Potassium Potassium POC Chloride Chloride Carbon Dioxide POC Total CO2 Anion Gap POC Anion Gap POC BUN BUN Creatinine POC Creatinine Est Cr Clr Drug Dosing Est GFR ( Amer) Est GFR (Non-Af Amer) BUN/Creatinine Ratio Glucose POC Glucose 155 H POC Glucose (other) POC Lactic Acid Arter Lactate Calcium POC Ioniz Calcium Nury Magnesium Troponin I C-Reactive Protein NT-Pro-B Natriuret Pep Lipase Procalcitonin Nasal Screen MRSA (PCR) COVID-19 Eval Order SARS-CoV-2 (PCR) Influenza Type A (PCR) Influenza Type B (PCR) RSV (RT-PCR) Diagnostic Findings Telemetry personally reviewed: Atrial fibrillation with rapid ventricular response. Chest x-ray 11/18/2020: Right greater than left bilateral airspace opacities. Small right pleural effusion. Chest x-ray 11/17/2020: Interval development of dense right upper lobe consolidation and additional bilateral airspace opacities consistent with multifocal pneumonia per Radiology. Right lower lobe mass obscured by airspace opacity per Radiology. Images personally reviewed. ECGs personally reviewed: ECG 11/17/2020 at 12:27 p.m.: AFib with RVR 143 beats per minute. Incomplete RBBB. Septal infarct. ECG 11/17/2020 at 1:01 p.m.: AV paced 72 beats per minute ECG 11/18/2020: AFib with RVR 109 beats per minute. Nonspecific T-wave abnormality. Echo 10/03/2020: Reported normal LV systolic function. EF 55-60%. Mild biatrial dilation. Severe pulmonary hypertension. Medications Administered Current Inpatient Medications Albuterol (Albut/Ipratrop 3mg/0.5mg Neb 3 Ml Vial) 3 ml INH QIDR JARRET Stop: 12/17/20 18:59 Last Admin: 11/18/20 10:31 Dose: 3 ml Documented by: Atorvastatin Calcium (Atorvastatin 20 Mg Tab) 20 mg PO HS JARRET Stop: 12/17/20 20:59 Last Admin: 11/17/20 21:05 Dose: Not Given Documented by: Dextrose (Dextrose 50% 50 Ml Syringe) 25 - 50 ml IV UD PRN; Protocol PRN Reason: Hypoglycemia Protocol Stop: 12/18/20 00:29 Fluticasone Furoate (Fluticasone Furoate 200mcg 14 Puffs/Inhaler) 1 puffs INH PM JARRET Stop: 12/17/20 20:59 Last Admin: 11/17/20 21:05 Dose: 1 puffs Documented by: Glucagon (Glucagon For Inj 1 Mg Vial) 1 mg SQ UD PRN; Protocol PRN Reason: Hypoglycemia Protocol Stop: 12/18/20 00:29 Glucose (Glucose 40% Gel 15 Gm Tube) 15 - 30 gm PO UD PRN; Protocol PRN Reason: Hypoglycemia Protocol Stop: 12/18/20 00:29 Glucose (Glucose 10 Tabs/Tube) 4 - 8 tabs PO UD PRN; Protocol PRN Reason: Hypoglycemia Protocol Stop: 12/18/20 00:29 Amiodarone HCl/Dextrose (Nexterone / D5w) 360 mg in 200 mls @ 33.333 mls/hr IV .Q6H [facility] Stop: 12/17/20 19:09 Last Admin: 11/18/20 08:16 Dose: 1 mg/min, 33.3 mls/hr Documented by: Piperacillin Sod/Tazobactam (Sod 3.375 gm/ Dextrose) 115 mls @ 28.75 mls/hr IV Q8H JARRET; Protocol Stop: 11/24/20 05:59 Last Admin: 11/18/20 10:19 Dose: 28.8 mls/hr Documented by: Famotidine 20 mg/ Syringe 5 mls @ 2.5 mls/min IV Q12H [facility] Stop: 12/17/20 15:59 Last Admin: 11/18/20 04:03 Dose: 2.5 mls/min Documented by: Vancomycin HCl 750 mg/ Sodium (Chloride) 265 mls @ 200 mls/hr IV Q12H [facility] Stop: 11/25/20 00:00 Last Infusion: 11/18/20 01:00 Dose: Infused Documented by: Insulin Aspart (Insulin Aspart 100 Units/Ml 3 Ml Pen) 0 units SC Q4 [facility] Stop: 12/18/20 00:29 Last Admin: 11/18/20 08:17 Dose: Not Given Documented by: Levalbuterol HCl (Levalbuterol Tartrate 15 Gm Hfa.Aer.Ad) 2 puffs INH QID PRN PRN Reason: Shortness Of Breath Stop: 12/17/20 16:11 Metoprolol Tartrate (Metoprolol Tartrate 1 Mg/Ml Vial) 10 mg IV Q4 JARRET Stop: 12/18/20 00:00 Last Admin: 11/18/20 07:40 Dose: 10 mg Documented by: Metoprolol Tartrate (Metoprolol Tartrate 50 Mg Tab) 50 mg PO BID JARRET Stop: 12/18/20 10:29 Miscellaneous (Carbohydrates For Hypoglycemia ) 15 - 30 gm PO UD PRN PRN Reason: Hypoglycemia Treatment Stop: 12/18/20 00:29 Miscellaneous Information (Vancomycin Consult Active) 1 ea N/A UD PRN PRN Reason: Consult Stop: 12/17/20 13:02 Miscellaneous Information (Piperacill/Tazobac Consult Active) 1 ea N/A UD PRN PRN Reason: Consult Stop: 12/17/20 15:59 Miscellaneous Information (Pharmacy Glycemic Mgmt Consult) 1 ea N/A UD PRN PRN Reason: Consult Stop: 12/18/20 00:24 Potassium Chloride (Potassium Chloride Crtab 20 Meq Tabcr) 20 meq PO DAILY JARRET Stop: 12/18/20 08:59 Last Admin: 11/18/20 08:16 Dose: 20 meq Documented by: Prednisone (Prednisone 10 Mg Tablet) 10 mg PO DAILY JARRET Stop: 12/18/20 08:59 Last Admin: 11/18/20 08:16 Dose: 10 mg Documented by: Senna/Docusate Sodium (Docusate Sodium/Senna 50/8.6mg Tab) 2 tab PO QAM JARRET Stop: 12/18/20 08:59 Last Admin: 11/18/20 08:16 Dose: 2 tab Documented by: Sennosides (Senna 8.6 Mg Tab) 17.2 mg PO HS JARRET Stop: 12/17/20 20:59 Last Admin: 11/17/20 21:05 Dose: Not Given Documented by: Warfarin Sodium (Warfarin Sod 2 Mg Tab) 2 mg PO DAILY@1600 JARRET Stop: 12/18/20 15:59 PG Care Time/CCT Total # of Minutes Spent Total Time Spent with Patient: Total time spent is greater than 50% in coordination of care (as documented) at patient's floor/unit and/or counseling patient: Critical Care Time: Yes Total Critical Care Time: 40 Coding Level of Care Code None Diagnoses Paroxysmal atrial fibrillation I48.0 Atrial fibrillation with RVR I48.91 Acute hypoxemic respiratory failure J96.01 Cardiac pacemaker Z95.0 Anticoagulant long-term use Z79.01 SSS (sick sinus syndrome) I49.5 Additional Codes Critical Care Time - Critical Care Time: Yes ([id number]) Time Spent (min) 40 Comment 64013 Critical Care time
--- NOTE | 2020-11-18 10:20 | Hospitalist Progress Note ---
Date of Service November 18, 2020 Assessment & Plan (1) Pneumonia: 75 yo M with hx small cell lung cancer s/p radiation and chemotherapy, BPH, Afib, COPD, (2) Paroxysmal atrial fibrillation: (3) Radiation pneumonitis: (4) Chronic obstructive pulmonary disease: (5) Acute and chronic respiratory failure with hypoxia: (6) Small cell lung 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: (7) Atrial fibrillation with RVR: (8) Elevated INR: (9) Schizophrenia: (10) BPH (benign prostatic hyperplasia): Admission and Anticipated Discharge Date Admission Date: November 17, 2020 Subjective Feeling SOB this morning, somewhat improved with CPAP. no pain. continues to feel heart racing. Review of Systems Constitutional: no fever, no chills, no body aches and no fatigue Respiratory: + cough and + dyspnea Cardiovascular: + dyspnea and + palpitations; no chest pain and no edema Gastrointestinal: no abdominal pain, no nausea, no vomiting, no constipation and no diarrhea/loose stools Physical Exam Physical Exam: Constitutional: cachectic, elderly man laying in bed Eyes: EOMI, pupils equal and reactive bilaterally, no scleral icterus Cardiac: tachycardic, irregular rhythm, no rubs Pulm: diffusely rhonchorous in both lungs R>L, on supplemental O2, working hard to breath with accessory muscles Abd: soft, nontender, nondistended, normal bowel sounds, no rebound or guarding Extremities: cool, pale extremities with poor pulses, no edema Neuro: no focal deficits, moving all 4 limbs, A&Ox3 Results & Data Results & Data ([facility]) Vital Signs (Past 12 Hours) Vital Signs Temp Pulse Pulse Resp BP Pulse Ox 11/18/20 09:31 117 H 11/18/20 07:40 113 H 117 H 14 124/95 93 11/18/20 06:19 37.1 C 110 H 15 122/90 90 11/18/20 06:15 37.1 C 104 H 23 91 11/18/20 06:04 37.1 C 118 H 18 108/87 92 11/18/20 06:00 37.1 C 124 H 15 92 11/18/20 05:49 37.1 C 115 H 15 103/80 92 11/18/20 05:45 37.2 C 126 H 17 91 11/18/20 05:34 37.2 C 107 H 15 119/90 92 11/18/20 05:30 37.2 C 104 H 18 91 11/18/20 05:19 37.2 C 105 H 12 109/90 93 11/18/20 05:15 37.2 C 107 H 13 92 11/18/20 05:04 37.2 C 122 H 16 116/89 92 11/18/20 05:00 37.2 C 114 H 15 92 11/18/20 04:49 37.2 C 112 H 25 H 112/88 11/18/20 04:45 37.2 C 100 H 22 93 11/18/20 04:34 37.2 C 102 H 16 117/92 91 11/18/20 04:30 37.2 C 111 H 15 92 11/18/20 04:28 108 H 15 92 11/18/20 04:19 37.2 C 118 H 16 111/93 94 11/18/20 04:15 37.2 C 119 H 17 91 11/18/20 04:04 37.3 C 109 H 18 115/93 89 L 11/18/20 04:03 111 H 109/82 11/18/20 04:00 37.2 C 117 H 17 92 11/18/20 03:49 37.3 C 122 H 15 109/82 93 11/18/20 03:45 37.2 C 112 H 16 92 11/18/20 03:34 37.3 C 102 H 14 117/91 92 11/18/20 03:30 37.2 C 123 H 22 92 11/18/20 03:19 37.3 C 119 H 15 104/73 83 L 11/18/20 03:15 37.2 C 115 H 19 87 L 11/18/20 03:05 37.2 C 106 H 18 119/52 L 89 L 11/18/20 03:00 37.2 C 121 H 15 88 L 11/18/20 02:49 37.2 C 124 H 15 108/89 90 11/18/20 02:45 37.2 C 109 H 21 88 L 11/18/20 02:34 37.2 C 117 H 13 116/85 92 11/18/20 02:30 37.2 C 111 H 17 90 11/18/20 02:20 115 H 20 92 11/18/20 02:19 37.2 C 112 H 14 108/85 92 11/18/20 02:15 37.2 C 111 H 31 H 92 11/18/20 02:12 37.2 C 120 H 25 H 129/89 92 11/18/20 02:05 37.2 C 110 H 27 H 93 11/18/20 02:04 37.2 C 120 H 26 H 131/94 93 11/18/20 02:00 37.2 C 113 H 14 93 11/18/20 01:49 37.2 C 104 H 15 113/97 92 11/18/20 01:45 37.2 C 115 H 16 93 11/18/20 01:34 37.1 C 120 H 14 117/87 92 11/18/20 01:30 37.2 C 134 H 14 91 11/18/20 01:19 37.2 C 109 H 15 98/82 L 90 11/18/20 01:15 37.2 C 116 H 14 91 11/18/20 01:04 37.1 C 128 H 20 105/76 89 L 11/18/20 01:00 37.1 C 118 H 15 86 L 11/18/20 00:49 37.1 C 123 H 13 98/78 L 90 11/18/20 00:45 37.1 C 127 H 15 89 L 11/18/20 00:34 37.1 C 119 H 13 105/76 89 L 11/18/20 00:30 37.1 C 132 H 18 90 11/18/20 00:19 37.1 C 118 H 14 111/87 90 11/18/20 00:15 37.1 C 124 H 14 90 11/18/20 00:03 37.1 C 100 H 18 104/89 91 11/18/20 00:00 37.1 C 116 H 15 89 L 11/17/20 23:49 37.1 C 112 H 21 111/89 85 L 11/17/20 23:45 37.1 C 116 H 15 90 11/17/20 23:34 37.1 C 103 H 16 96/79 L 89 L 11/17/20 23:33 118 H 11/17/20 23:30 37.1 C 130 H 13 88 L 11/17/20 23:21 112 H 108/89 11/17/20 23:20 37.1 C 108 H 14 89 L 11/17/20 23:12 37.1 C 122 H 16 108/89 88 L 11/17/20 23:11 37.1 C 124 H 18 90 11/17/20 23:09 37.1 C 124 H 19 87/70 L 88 L 11/17/20 23:04 37.1 C 118 H 17 95/80 L 90 11/17/20 23:00 37.1 C 108 H 24 91 11/17/20 22:50 37.0 C 110 H 23 86 L 11/17/20 22:40 37.0 C 118 H 22 91 11/17/20 22:30 37.0 C 124 H 23 92 Laboratory Results WBC 15.34 K/uL (4.8-10.8) H 11/18/20 05:09 RBC 3.16 M/uL (4.7-6.1) L 11/18/20 05:09 Hgb 10.2 g/dL (14.0-18.0) L 11/18/20 05:09 POC Hgb 8.8 g/dl (14.0-18.0) L 11/17/20 14:55 Hct 30.6 % (42-52) L 11/18/20 05:09 POC Hct 26 % (42-52) L 11/17/20 14:55 MCV 96.8 fL (80-100) 11/18/20 05:09 MCH 32.3 pg (25-34) 11/18/20 05:09 MCHC 33.3 g/dL (32-36) 11/18/20 05:09 RDW Std Deviation 55.5 fL (36.4-46.3) H 11/18/20 05:09 RDW Coeff of Ivis 16.3 % (11.5-14.5) H 11/18/20 05:09 Plt Count 180 K/uL (130-400) 11/18/20 05:09 MPV 9.6 fL (7.4-10.4) 11/18/20 05:09 Immature Gran % (Auto) 0.3 % 11/18/20 05:09 Neut % (Auto) 93.1 % 11/18/20 05:09 Lymph % (Auto) 3.1 % 11/18/20 05:09 Sanders % (Auto) 3.5 % 11/18/20 05:09 Eos % (Auto) 0.0 % 11/18/20 05:09 Baso % (Auto) 0.0 % 11/18/20 05:09 Neut # (Auto) 14.28 K/uL (1.4-6.5) H 11/18/20 05:09 Lymph # (Auto) 0.48 K/uL (1.2-3.4) L 11/18/20 05:09 Sanders # (Auto) 0.53 K/uL (0.11-0.59) 11/18/20 05:09 Eos # (Auto) 0.00 K/uL (0-0.5) 11/18/20 05:09 Baso # (Auto) 0.00 K/uL (0-0.2) 11/18/20 05:09 Immature Gran # (Auto) 0.05 K/uL (0.00-0.02) H 11/18/20 05:09 Absolute Nucleated RBC 0.03 K/uL (0-0) H 11/17/20 12:47 Nucleated RBC % (auto) 0.2 % 11/17/20 12:47 PT 53.9 Seconds (9.0-12.0) H 11/18/20 05:09 INR 6.1 (0.9-1.1) H* 11/18/20 05:09 APTT 44.5 Seconds (21.0-31.0) H 11/17/20 12:50 PTT Ratio 1.7 11/17/20 12:50 POC pH 7.53 (7.35-7.45) H* 11/17/20 14:55 POC pCO2 31 mmHg (35-46) L 11/17/20 14:55 POC pO2 115 mmHg (80-95) H 11/17/20 14:55 POC HCO3 25 janice/L (19-24) H 11/17/20 14:55 POC Total CO2 26 mmol/L (24-31) 11/17/20 14:55 POC Base Excess 3.0 janice/L (-9-1.8) H 11/17/20 14:55 POC ABG O2 Sat 99.0 % (90-95) H 11/17/20 14:55 VBG pH 7.36 (7.36-7.41) 11/17/20 12:47 VBG pCO2 54 mmHg (38-50) H 11/17/20 12:47 VBG pO2 14 mmHg 11/17/20 12:47 VBG HCO3 30 mmol/L 11/17/20 12:47 VBG O2 Saturation < 60.0 % 11/17/20 12:47 VBG Base Excess 3.8 mEq/L 11/17/20 12:47 Barometric Pressure 718.8 mm/Hg 11/17/20 12:47 POC Sodium 136 mmol/L (135-144) 11/17/20 14:55 Sodium 138 mmol/L (136-145) 11/18/20 05:09 POC Potassium 4.0 mmol/L (3.3-5.0) 11/17/20 14:55 Potassium 3.5 mmol/L (3.5-5.1) D 11/18/20 05:09 POC Chloride 97 mmol/L (101-112) L 11/17/20 12:49 Chloride 103 mmol/L (98-107) 11/18/20 05:09 Carbon Dioxide 31 mmol/L (21-32) 11/18/20 05:09 POC Total CO2 31 mmol/L (24-31) 11/17/20 12:49 Anion Gap 4.0 (3-11) 11/18/20 05:09 POC Anion Gap 13.0 mmol/L (16-25) L 11/17/20 12:49 POC BUN 30 mg/dl (7-18) H 11/17/20 12:49 BUN 30 mg/dl (7-18) H 11/18/20 05:09 Creatinine 1.23 mg/dl (0.6-1.4) 11/18/20 05:09 POC Creatinine 1.4 mg/dl (0.6-1.3) H 11/17/20 12:49 Est Cr Clr Drug Dosing 51.8 ml/min 11/18/20 05:09 Est GFR ( Amer) 67.1 11/18/20 05:09 Est GFR (Non-Af Amer) 57.9 11/18/20 05:09 BUN/Creatinine Ratio 24.2 (10-20) H 11/18/20 05:09 Glucose 144 mg/dl (70-99) H 11/18/20 05:09 POC Glucose 173 mg/dl (70-99) H 11/18/20 15:54 POC Glucose (other) 155 mg/dl (70-99) H 11/17/20 12:49 POC Lactic Acid Arter 1.28 mmol/L (0.36-1.25) H 11/17/20 14:59 Lactate 2.6 mmol/L (0.4-2.0) H* 11/17/20 12:47 Calcium 7.9 mg/dl (8.5-10.1) L 11/18/20 05:09 POC Ioniz Calcium Nury 1.16 mmol/l (1.12-1.32) 11/17/20 12:49 Magnesium 1.7 mg/dl (1.8-2.4) L 11/18/20 05:09 Troponin I 0.029 ng/ml (0-0.045) 11/17/20 12:47 C-Reactive Protein 12.90 mg/dl (0-0.29) H 11/17/20 12:47 NT-Pro-B Natriuret Pep 57967 pg/ml (0-900) H 11/17/20 12:47 Lipase 51 U/L (73-393) L 11/17/20 12:47 Procalcitonin 0.34 ng/ml (0-0.5) 11/17/20 12:47 Nasal Screen MRSA (PCR) Positive (Negative) A 11/17/20 15:58 COVID-19 Eval Order [facility] at [facility] 11/17/20 13:14 SARS-CoV-2 (PCR) NEGATIVE (Negative) 11/17/20 13:14 Influenza Type A (PCR) Negative (Neg) 11/17/20 13:14 Influenza Type B (PCR) Negative (Neg) 11/17/20 13:14 RSV (RT-PCR) Negative (Neg) 11/17/20 13:14 Impressions Chest X-Ray 11/18/20 06:00 XR chest 1V portable HISTORY: 75 years-old Male resp failure acute respiratory failure COMPARISON: Chest radiograph 11/17/2020 TECHNIQUE: Portable AP view of the chest FINDINGS: Cardiac silhouette is enlarged. Left subclavian pacer. No pneumothorax. Small right pleural effusion has mildly increased in size. Emphysema. Right greater than left bilateral airspace opacities redemonstrated. There is mildly improved aeration of the right midlung. No pneumothorax. Degenerative changes of the shoulders and spine. IMPRESSION: 1. Right greater than left bilateral airspace opacities redemonstrated with mildly improved aeration of the right midlung. 2. Small right pleural effusion has mildly increased in size. Chest CT 11/18/20 09:06 CT chest diagnostic wo con CT DOSE: 745.88 mGycm HISTORY: chemoradiation pneumonitis, ? Postobstructive pneumonia. Cough. TECHNIQUE: Multiaxial CT images of the chest were performed without contrast. A dose lowering technique was utilized adhering to the principles of ALARA. COMPARISON: Chest CT 09/30/2020. FINDINGS: No significant change in the spiculated and partially calcified 4 cm right lower lobe mass. Near diffuse interstitial thickening with patchy airspace opacities seen throughout the majority of the right lung. This has progressed compared to the prior chest CT. There are also areas of interstitial thickening and consolidation within the lingula. This has slightly improved. Small patchy groundglass densities within the base of the left lower lobe have also slightly progressed. There is advanced emphysema. No pneumothorax. There is mucoid ma terial within the right bronchi most pronounced within the right lower lobe. There is respiratory motion artifact. Partially loculated small right pleural effusion. Decrease in size in the trace left pleural effusion. Limited views the upper abdomen demonstrate a normal liver and spleen. There is trace perihepatic ascites. Normal caliber esophagus. Multinodular right thyroid gland is again noted. Left-sided pacemaker. A few prominent mediastinal lymph nodes remain stable. The heart remains mildly enlarged. There is a small pericardial effusion, unchanged. 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 This is also unchanged. No change in the chronic T12 and L1 compression fractures. There is also an old mild compression deformity within the mid thoracic spine. IMPRESSION: 1. Interstitial thickening and consolidative airspace opacities seen throughout the majority of the right lung. This has progressed compared to the prior chest CT. There is also partial mucoid opacification of the right bronchi most pronounced within the right lower lobe. Therefore, these findings are nonspecific but favor a pneumonia and could be secondary to aspiration. Superimposed radiation pneumonitis cannot be excluded. 2. Redemonstration of the spiculated 4 cm masslike opacity within the right lower lobe. 3. Small bilateral pleural effusions. 4. Slight improved aeration within the lingular opacities. 5. Emphysema. 6. Small pericardial effusion. 7. Additional findings as described above. (1) Chronic obstructive pulmonary disease COPD type: unspecified COPD Qualified Code(s): J44.9 - Chronic obstructive pulmonary disease, unspecified (2) Pneumonia Laterality: right Lung location: lower lobe of lung Pneumonia type: due to unspecified organism Qualified Code(s): J18.9 - Pneumonia, unspecified organism
--- NOTE | 2020-11-18 10:31 | CT Scan Report ---
CT chest diagnostic wo con CT DOSE: 745.88 mGycm HISTORY: chemoradiation pneumonitis, ? Postobstructive pneumonia. Cough. TECHNIQUE: Multiaxial CT images of the chest were performed without contrast. A dose lowering techni que was utilized adhering to the principles of ALARA. COMPARISON: Chest CT 09/30/2020. FINDINGS: No significant change in the spiculated and partially calcified 4 cm right lower lobe mass. Near diffuse interstitial thickening with patchy airspace opacities seen throughout the majority of the right lung. This has progressed compared to the prior chest CT. There are also areas of interstit ial thickening and consolidation within the lingula. This has slightly improved. Small patchy groundg lass densities within the base of the left lower lobe have also slightly progressed. There is advance d emphysema. No pneumothorax. There is mucoid material within the right bronchi most pronounced withi n the right lower lobe. There is respiratory motion artifact. Partially loculated small right pleural effusion. Decrease in size in the trace left pleural effusion. Limited views the upper abdomen demon strate a normal liver and spleen. There is trace perihepatic ascites. Normal caliber esophagus. Multi nodular right thyroid gland is again noted. Left-sided pacemaker. A few prominent mediastinal lymph n odes remain stable. The heart remains mildly enlarged. There is a small pericardial effusion, unchang ed. 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 This is also unchanged. No change in the chronic T12 and L1 compression fractures. There is also an old mild compression deformity within the mid thoracic spine. IMPRESSION: 1. Interstitial thickening and consolidative airspace opacities seen throughout the majority of the r ight lung. This has progressed compared to the prior chest CT. There is also partial mucoid opacifica tion of the right bronchi most pronounced within the right lower lobe. Therefore, these findings are nonspecific but favor a pneumonia and could be secondary to aspiration. Superimposed radiation pneumo nitis cannot be excluded. 2. Redemonstration of the spiculated 4 cm masslike opacity within the right lower lobe. 3. Small bilateral pleural effusions. 4. Slight improved aeration within the lingular opacities. 5. Emphysema. 6. Small pericardial effusion. 7. Additional findings as described above. ACT 112: Negative or not required by law. Electronically signed by: Layton Dominguez M.D. 11/18/2020 10:30 AM
[2020-11-18] MEDS: METOPROLOL TARTRATE 50 MG TAB PO SCH ×2 (11:09→20:34)
[2020-11-18] MEDS ORDERED: PERFLUTREN LIPID MICROSPHERE (DEFINITY) IV ONE (11:34)
[2020-11-18] MEDS: VANCOMYCIN HCL 750 MG in SODIUM CHLORIDE 0.9% 250 ML IV SCH (12:48)
[2020-11-18] MEDS ORDERED: VANCOMYCIN CONSULT ACTIVE PRN ×2 (13:46)
--- NOTE | 2020-11-18 13:46 | XCELERA ---
[id number]
[2020-11-18] MEDS ORDERED: VANCOMYCIN HCL 1,250 MG in SODIUM CHLORIDE 0.9% 500 ML IV SCH (14:00)
--- NOTE | 2020-11-18 14:28 | Pharmacy Report ---
Pharmacy Glycemic Short Note 2 - Date of Service November 18, 2020 - Glycemic Short BSG Results (Last 24 hours): 11/17/20 11/18/20 11/18/20 23:56 03:59 05:09 Glucose 144 H POC Glucose 184 H 154 H 11/18/20 11/18/20 08:14 11:56 Glucose POC Glucose 155 H 159 H OUTPATIENT ANTIDIABETIC REGIMEN: * n/a * A1c pending for AM ASSESSMENT: * presents with atrial fibrillation with rapid ventricular response and increasing shortness of breath with a new right upper lobe airspace opacity and supratherapeutic INR. He is receiving broad spectrum antibiotics. He does not aappear to be undergoing current treatment for diabetes per med rec, and A1c is pending for the morning. * He remains NPO and has been continued on prednisone 10mg daily, which appears to be a home medication * He received a one time dose of lantus last evening and BSGs have been acceptable today (140s-150s) on novolog only. Will add a conservative lantus scale this evening and continue NovoLog scale with tightened goal range. PLAN FOR INPATIENT GLYCEMIC CONTROL: * Hold outpatient oral diabetes medications * Basal insulin * Lantus 13 units SQ last evening X 1 * Lantus scale this evening, 0 or 10 units based on BSG-See MAR for details * Bolus insulin * NovoLog per scale ACHS or Q6hrs while NPO * Goal Range: Low 120 mg/dL - High 150 mg/dL * Correction Factor: 30 mg/dL/unit * Nutritional / Prandial insulin per carb ratio of 1 unit per 10 grams CHO consumed
--- NOTE | 2020-11-18 15:22 | Palliative Care Consultation ---
Date of Consultation November 18, 2020 Assessment & Plan (1) Palliative care encounter: I spoke with Quinn at bedside. He does have an understanding of his current medical condition. He can recall when he was diagnosed with cancer and why chemotherapy was stopped ("low blood"). He recalls having conversation about intubation yesterday and says that he would want CPR and breathing tube if needed. We discussed that given his serious illness, CPR would not likely be effective and would cause him discomfort. His response was "You have to try". We discussed intubation and possibility that he would not be able to wean from vent. I asked him if he would still want the tube if he knew that it probably wouldn't help. He indicated that he would. We discussed what he would want if after several days, he was not improving with intubation, "then pull it". He understands that if we did not do these interventions, he would . He also understands that he is likely to from the cancer with or without interventions. He is oriented, understands the basics of his illness and the co nsequences of treatment. He is cogent enough to tell me that if you are driving and see a red light, you stop. I asked him how do you stop and he said "push the brake or downshift". I believe that he is capable of making decisions at this time. Palliative care will follow and clarify surrogate decision maker as well. (2) Acute and chronic respiratory failure with hypoxia: (3) Chronic obstructive pulmonary disease: COPD type: unspecified COPD Qualified Code(s): J44.9 - Chronic obstructive pulmonary disease, unspecified (4) Small cell lung 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: (5) Pneumonia: Laterality: right Lung location: lower lobe of lung Pneumonia type: due to unspecified organism Qualified Code(s): J18.9 - Pneumonia, unspecified organism (6) Atrial fibrillation with RVR: History of Present Illness Reason for Consultation: Goals of care Attending Physician: Joe Rene DO History of Present Illness 75 yo gentleman who is a resident at [facility]. He has history of small cell lung cancer diagnosed in 2019. He has had chemotherapy which he did not tolerate due to pancytopenia. He also has comorbid COPD. He was admitted with acute hypoxic respiratory failure. His BNP was elevated above 15,000. He has also had afib with RVR. He was hospitalized in September with postobstructive pneumonia. CT on this admission shows persistent right lung opacities, small bilateral pleural effusions and persistent 4cm mass on right. He is noted on the chart to have a history of dementia and schizophrenia. On admission, he had a pulmonology consult and at that time consented to intubation if necessary. We have been consulted to assist with goals of care. Allergies Allergy/AdvReac Type Severity Reaction Status Date / Time No Known Allergies Allergy Verified 09/30/20 01:37 Home Medications Medication Instructions Recorded Confirmed Type Senna Plus 2 tab-cap PO QAM 05/09/20 11/17/20 History atorvastatin 20 mg PO HS 05/09/20 11/17/20 History benztropine 1 mg PO QAM 05/09/20 11/17/20 History haloperidol 1 mg PO BID 05/09/20 11/17/20 History haloperidol 2 mg PO BID 05/09/20 11/17/20 History hydroxyzine HCl 25 mg PO BID 05/09/20 11/17/20 History levalbuterol tartrate [Xopenex HFA] 2 inh INHALATION QID PRN 05/09/20 11/17/20 History montelukast 10 mg PO QAM 05/09/20 11/17/20 History tamsulosin 0.4 mg PO HS 05/09/20 11/17/20 History warfarin 2 mg PO DAILY 09/19/20 11/17/20 History metoprolol succinate 100 mg PO DAILY #10 tab 09/23/20 11/17/20 Rx potassium chloride 20 meq PO DAILY #14 cap 09/24/20 09/30/20 Rx Alvesco 1 puff INHALATION BID 09/30/20 11/17/20 History omeprazole 40 mg PO BID #0 cap 10/03/20 11/17/20 Rx prednisone 10 mg PO UD #160 tab 10/03/20 11/17/20 Rx ipratropium-albuterol [DuoNeb] 3 ml INHALATION Q4H 11/17/20 11/17/20 History Patient History Medical History Anxiety Atrial fibrillation ANTICOAGULATED WITH COUMADIN Chronic obstructive pulmonary disease CKD (chronic kidney disease) stage 2, GFR 60-89 ml/min Hyperlipidemia Hypertension Inmate in correctional facility Nocturia Paroxysmal atrial fibrillation Phlebitis DEEP LOWER EXTREMITY. Pulmonary mass Radiation pneumonitis Shortness of breath Sick sinus syndrome s/p insertion of PPM 06/02/16 Small cell lung 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 dx 05/2020, right sided. Syncope Implantation of dual-chamber [employer]onic pacemaker 06/02/2016 Surgical History History of appendectomy History of tonsillectomy Status post biventricular cardiac pacemaker insertion 2015. Has followed with Dr. Calle. Family History Other Family history unknown Social History Smoking Status: Former smoker Tobacco Type: Cigarettes Age Started Using Tobacco: 11; Age Quit Using Tobacco: 55; packs per day: 1; Years Smoked: 44; Cigarettes Per Day: 20; Number of Years Since Quit: 20; Second Hand Exposure: No; Hx Alcohol Use: No Hx Substance Use: No Preferred Language: [place]ese Communication Ability: Effective Visual Impairment: No Limitations Hearing Ability: Normal Community Worker Required: No Beliefs That Will Affect Care: None marital status: Single Current Living Situation: Other Current Living Situation Comment: Correction current occupational status: unemployed Feels Safe at Home: Declines to Answer caffeine: No during the past year weight has: remained stable Dental Care, Regularly: No Seatbelt Use: always Sunscreen Use: No Assistive Devices: Oxygen - Continuous Review of Systems Review of Systems: [place] Symptom Assessment Scale Pain 0/3 He had been complaining of chest pain earlier Dyspnea 2/3 Anxiety 1/3 Nausea 0/3 Drowsiness 0/3 Fatigue 2/3 Palliative Performance Score 30% Physical Exam Constitutional: + ill appearing thin, pale Respiratory: + labored breathing and + uses accessory muscles Cardiovascular: Rate/Rhythm: + irregularly irregular Gastrointestinal (Abdomen): Inspection/Auscultation: abdomen not distended Neurologic: awake; not confused Psychiatric: Orientation: alert, oriented to person, oriented to place and oriented to time (Knew the year was 2019 and season is spring, thought month was October) Results & Data ([facility]) Vital Signs (Past 12 Hours) Vital Signs Temp Pulse Pulse Resp BP Pulse Ox 11/18/20 14:05 98.8 F 95 H 16 121/83 92 04/12/21 13:05 98.6 F 95 H 18 117/83 99 11/18/20 12:49 114 H 11/18/20 12:05 98.6 F 99 H 20 108/88 92 11/18/20 11:04 98.6 F 112 H 14 131/91 98 11/18/20 10:32 112 H 112 H 13 94 11/18/20 10:04 98.8 F 123 H 14 117/89 94 11/18/20 09:31 117 H 11/18/20 09:04 98.8 F 112 H 11 L 117/89 98 11/18/20 08:04 98.6 F 109 H 15 120/91 95 11/18/20 08:00 112 H 11/18/20 07:40 113 H 117 H 14 124/95 93 11/18/20 07:04 98.6 F 130 H 15 113/87 91 11/18/20 06:19 98.8 F 110 H 15 122/90 90 11/18/20 06:15 98.8 F 104 H 23 91 11/18/20 06:04 98.8 F 118 H 18 108/87 92 11/18/20 06:00 98.8 F 124 H 15 92 11/18/20 05:49 98.8 F 115 H 15 103/80 92 11/18/20 05:45 99.0 F 126 H 17 91 11/18/20 05:34 99.0 F 107 H 15 119/90 92 11/18/20 05:30 99.0 F 104 H 18 91 11/18/20 05:19 99.0 F 105 H 12 109/90 93 11/18/20 05:15 99.0 F 107 H 13 92 11/18/20 05:04 99.0 F 122 H 16 116/89 92 11/18/20 05:00 99.0 F 114 H 15 92 11/18/20 04:49 99.0 F 112 H 25 H 112/88 11/18/20 04:45 99.0 F 100 H 22 93 11/18/20 04:34 99.0 F 102 H 16 117/92 91 11/18/20 04:30 99.0 F 111 H 15 92 11/18/20 04:28 108 H 15 92 04/12/21 04:19 99.0 F 118 H 16 111/93 94 11/18/20 04:15 99.0 F 119 H 17 91 11/18/20 04:04 99.1 F 109 H 18 115/93 89 L 11/18/20 04:03 111 H 109/82 11/18/20 04:00 99.0 F 117 H 17 92 11/18/20 03:49 99.1 F 122 H 15 109/82 93 11/18/20 03:45 99.0 F 112 H 16 92 11/18/20 03:34 99.1 F 102 H 14 117/91 92 11/18/20 03:30 99.0 F 123 H 22 92 PG Care Time/CCT Total # of Minutes Spent Total Time Spent with Patient: Total time spent is greater than 50% in coordination of care (as documented) at patient's floor/unit and/or counseling patient: total time spent is 60 minutes with more than 50% of time spent on goals of care, capacity evaluation, prognosis. Coding Level of Care Code 89576 Inpt Consult Level 3 Diagnoses Palliative care encounter Z51.5 Acute and chronic respiratory failure with hypoxia J96.21 Chronic obstructive pulmonary disease J44.9 COPD type: unspecified COPD Small cell lung 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 C34.90 Pneumonia J18.9 Laterality: right Lung location: lower lobe of lung Pneumonia type: due to unspecified organism Atrial fibrillation with RVR I48.91 Time Spent (min) 60
[2020-11-18] MEDS: DIGOXIN 125 MCG in SYRINGE 9.5 ML IV SCH ×2 (15:56→21:10)
[2020-11-18] MEDS ORDERED: WARFARIN SOD 2 MG TAB PO SCH (16:00)
--- NOTE | 2020-11-18 16:52 | Medical Student Progress Note ---
Date of Service November 18, 2020 Assessment & Plan (1) Acute hypoxemic respiratory failure: Quinn is a 75 year old male with a past medical history significant for small cell lung cancer treated with chemotherapy, COPD, atrial fibrillation anticoagulated with warfarin, ischemic caridomyopathy with ICD and schizophrenia presenting with dyspnea and a fib with RVR, found to have new right upper lobe consolidation. Hypoxemic respiratory failure secondary to airspace consolidation: - Most likely bacterial pneumonia in the setting of radiation pneumonitis with underlying COPD - panlobar rhonchi, right sided consolidation on CXR and CT - WBC 15, afebrile, blood cultures negative, sputum cultures pending, nasal swab positive for MRSA - 94% on oxymask 8L, goal spO2 >90% - day 2 IV vancomycin and zosyn - IV lasix being held - Congestive heart failure secondary to ischemic cardiomyopathy less likely - BNP 61240, no baseline for comparsion - No peripheral edema on exam - EF wnl on echo A fib RVR: - Rate control is the primary goal - Cardioverted in the ED and regained regularly placed rhythm. - In a fib today, HR 110s - IV amiodarone and IV metoprolol 50mg BID per cardiology recommendations. - No concern for bradycardia with metoprolol given ICD. Supratherapeutic INR: - On admission INR was 5.6 -> 6.1 today. - Warfarin being held, 2.5 mg of vitamin K administered - Monitor INR Chronic kidney disease and electrolyte stabilization: - Creatinine is stable at 1.2 today. - Replete Magnesium (1.7) to goal 2 - Replete potassium (3.5) to goal 4 Goals of care: - machine operator helper and palliative care team both had conversations with patient regarding capacity and goals of care - Capable of decision making per palliative care - Appropriate insight into his disease, causes and possible complications - He has expressed desire for full code status. DVT ppx: held in setting of supratherapeutic INR FEN/GI: NPO Code Status: Full Code Dispo: ICU, will likely need PT/OT later in hospital stay for rehab placement Resident Attestation: I saw this patient with student doctor Cesar Nur and agree with the findings above, with the exceptions and changes marked in red. Dr. Fay Richards, PGY2 Admission and Anticipated Discharge Date Admission Date: November 17, 2020 Supervising Attestation I personally examined the patient and verified all ac points of history and exam, discussed case, and agree with decision making with A Boom MS2. Feeling better. Breathing easier than before. No new complaints. Vitals noted, in general he is awake and alert pleasant appearing comfortable on BiPAP. Lungs are coarse scattered rhonchi right-sided mostly clear on the left question slight rhonchi versus referred breath sounds. Severe community-acquired pneumonia superimposed on radiation pneumonitiscontinue treatment for MRSA and Pseudomonas. Continue supportive care. Seems to be improving. A. fib with RVRfortunately no overt pulmonary edema. Rates now easier to control. Continue current care. Stable for transfer to telemetry. Otherwise as above Subjective Quinn is a 75 year old male with a past medical history significant for schizophrenia, small cell lung cancer treated with chemotherapy, A fib anticoagulated on warfarin, ischemic cardiomyopathy with ICD, who presented to the ED on 11/17 with dyspnea and a fib with RVR. In the ED, he was cardioverted to a rate controlled rhythm due to unstable a fib and poor response to diltiazem. He was given 40 mg of Lasix, he had his magnesium replaced and was placed on CPAP. On admission to ICU the patient was initiated on CPAP (8L), on amiodarone drip for afib, and started on broad spectrum antibiotics for pneumonia. Of note, the patient was admitted on 09/28 for dyspnea and hemoptysis, found to have LLL pneumonia which was resolved on discharge. This morning, Quinn is ill appearing in significant distress. He reports that he is having trouble breathing and that he does feel his heart race at times. He struggled to sit up and his HR went from 140-180 with this activity. Quinn reports that his breathing has improved slightly throughout the day and appears to be more comfortable than this morning. Review of Systems Review of Systems: Review of systems was limited given patient's difficulty communicating due to respiratory distress. Physical Exam Physical Exam: General: Ill appearing in acute distress, cachectic, cooperative to exam Respiratory: Significant work of breathing, using accessory muscles, rhonchi and crackles heard across all lung siddiqi, worse on the right side. Cardiac: Tachycardic, normal rhythm. Heart sounds muffled due to overlying breath sounds Abdominal: Nontender, nondistended Extremities: extremities pale and cool to touch, no peripheral edema noted, poor peripheral pulses Neuro: Alert and cooperative to exam Results & Data ([facility]) Vital Signs (Past 12 Hours) Vital Signs Temp Pulse Pulse Resp BP Pulse Ox 11/18/20 15:56 105 H 109 H 20 96 11/18/20 15:41 101 H 11/18/20 14:05 37.1 C 95 H 16 121/83 92 11/18/20 13:05 37.0 C 95 H 18 117/83 99 11/18/20 12:49 114 H 11/18/20 12:05 37.0 C 99 H 20 108/88 92 11/18/20 11:04 37.0 C 112 H 14 131/91 98 11/18/20 10:32 112 H 112 H 13 94 11/18/20 10:04 37.1 C 123 H 14 117/89 94 11/18/20 09:31 117 H 11/18/20 09:04 37.1 C 112 H 11 L 117/89 98 11/18/20 08:04 37.0 C 109 H 15 120/91 95 11/18/20 08:00 112 H 11/18/20 07:40 113 H 117 H 14 124/95 93 11/18/20 07:04 37.0 C 130 H 15 113/87 91 11/18/20 06:19 37.1 C 110 H 15 122/90 90 11/18/20 06:15 37.1 C 104 H 23 91 11/18/20 06:04 37.1 C 118 H 18 108/87 92 11/18/20 06:00 37.1 C 124 H 15 92 11/18/20 05:49 37.1 C 115 H 15 103/80 92 11/18/20 05:45 37.2 C 126 H 17 91 11/18/20 05:34 37.2 C 107 H 15 119/90 92 11/18/20 05:30 37.2 C 104 H 18 91 11/18/20 05:19 37.2 C 105 H 12 109/90 93 11/18/20 05:15 37.2 C 107 H 13 92 11/18/20 05:04 37.2 C 122 H 16 116/89 92 11/18/20 05:00 37.2 C 114 H 15 92 11/18/20 04:49 37.2 C 112 H 25 H 112/88 04/12/21 04:45 37.2 C 100 H 22 93 11/18/20 04:34 37.2 C 102 H 16 117/92 91 11/18/20 04:30 37.2 C 111 H 15 92 11/18/20 04:28 108 H 15 92 Resident Activity Tracking Resident Involvement: Resident Care Provided Care Provided: [facility]
--- NOTE | 2020-11-18 18:45 | Billing Data ---
Date of Service November 18, 2020 Coding Level of Care Code 33326 Subseq Hosp Care Lvl 3
[2020-11-18] MEDS: SENNA 8.6 MG TAB PO SCH (20:33)
[2020-11-18] MEDS ORDERED: LORazepam 1 MG/2 ML VIAL IV STA (20:33)
[2020-11-18] MEDS: ATORVASTATIN 20 MG TAB PO SCH (20:33)
[2020-11-19] MEDS: PIPERACILLIN/TAZOBACTAM 3.375 GM in DEXTROSE 5% 100 ML IV SCH ×3 (01:51→17:27)
[2020-11-19] MEDS ORDERED: LORazepam 1 MG/2 ML VIAL IV STA (02:35)
[2020-11-19] MEDS: AMIODARONE / D5W 360 MG/200 ML BAG IV SCH ×2 (03:01→08:48)
[2020-11-19] MEDS: FAMOTIDINE 20 MG in SYRINGE 3 ML IV SCH ×2 (03:02→15:25)
[2020-11-19] MEDS: INSULIN ASPART 100 UNITS/ML 3 ML PEN SC SCH ×6 (04:13→23:46)
[2020-11-19 04:50] LABS: Eosinophils # (auto) 0.02 K/uL (0-0.5); Eosinophils % (auto) 0.2 %; Hematocrit (blood only) 31.5 % (42-52); Hemoglobin 10.6 g/dL (14.0-18.0); Immature Granulocytes # (auto) 0.04 K/uL (0.00-0.02); Immature Granulocytes % (auto) 0.3 %; Lymphocytes # (auto) 0.49 K/uL (1.2-3.4); Lymphocytes % (auto) 3.7 %; Mean Corpuscular Hemoglobin 31.9 pg (25-34); Mean Corpuscular Hgb Conc 33.7 g/dL (32-36); Mean Corpuscular Volume 94.9 fL (80-100); Mean Platelet Volume 9.1 fL (7.4-10.4); Monocytes # (auto) 0.46 K/uL (0.11-0.59); Monocytes % (auto) 3.5 %; Neutrophils # (auto) 12.16 K/uL (1.4-6.5); Neutrophils % (auto) 92.3 %; Platelet Count 148 K/uL (130-400); RDW Coefficient of Variation 16.1 % (11.5-14.5); RDW Standard Deviation 54.6 fL (36.4-46.3); Red Blood Count 3.32 M/uL (4.7-6.1); White Blood Count 13.17 K/uL (4.8-10.8)
[2020-11-19 04:58] LABS: INR 3.2 (0.9-1.1); Prothrombin Time 29.8 Seconds (9.0-12.0)
[2020-11-19 05:14] LABS: BUN Creatinine Ratio 24.5 (10-20); Calcium 7.9 mg/dl (8.5-10.1); Creatinine Clr Calc Pharmacy 57.4 ml/min; Est GFR (African American) 75.9; Est GFR (Non-African American) 65.5; Magnesium 1.8 mg/dl (1.8-2.4); Potassium 3.2 mmol/L (3.5-5.1)
--- NOTE | 2020-11-19 05:20 | Electrocardiogram Report ---
Test Reason : Blood Pressure : / mmHG Vent. Rate : 072 BPM Atrial Rate : 072 BPM P-R Int : 000 ms QRS Dur : 134 ms QT Int : 434 ms P-R-T Axes : 000 230 091 degrees QTc Int : 475 ms AV dual-paced rhythm with occasional sinus complexes Abnormal ECG When compared with ECG of 17-NOV-2020 12:44, AV pacing has replaced Atrial fibrillation Vent. rate has decreased BY 79 BPM Confirmed by Uriel Bose ([id number]) on 11/19/2020 5:20:26 AM Referred By: Luis Miguel OLGUIN Confirmed By:Uriel Bose
--- NOTE | 2020-11-19 05:20 | Electrocardiogram Report ---
Test Reason : Blood Pressure : / mmHG Vent. Rate : 151 BPM Atrial Rate : 117 BPM P-R Int : 000 ms QRS Dur : 098 ms QT Int : 298 ms P-R-T Axes : 000 072 -70 degrees QTc Int : 472 ms Atrial fibrillation with rapid ventricular response Low voltage QRS Incomplete right bundle branch block Cannot rule out Anterior infarct (cited on or before 17-NOV-2020) Nonspecific ST and T wave abnormality Abnormal ECG When compared with ECG of 17-NOV-2020 12:27, No significant change Confirmed by Uriel Bose ([id number]) on 11/19/2020 5:20:11 AM Referred By: Luis Miguel SCI Confirmed By:Uriel Bose
--- NOTE | 2020-11-19 05:34 | Electrocardiogram Report ---
Test Reason : Blood Pressure : / mmHG Vent. Rate : 109 BPM Atrial Rate : 125 BPM P-R Int : 000 ms QRS Dur : 118 ms QT Int : 276 ms P-R-T Axes : 000 066 247 degrees QTc Int : 371 ms Atrial fibrillation with rapid ventricular response with occasional ventricular-paced complexes Low voltage QRS Non-specific intra-ventricular conduction delay Nonspecific ST and T wave abnormality Abnormal ECG When compared with ECG of 17-NOV-2020 13:01, Vent. rate has increased BY 37 BPM AV pacing has been replaced by Afib Confirmed by Uriel Bose ([id number]) on 11/19/2020 5:33:52 AM Referred By: Luis Miguel [facility] Confirmed By:Uriel Bose
--- NOTE | 2020-11-19 06:00 | Electrocardiogram Report ---
Test Reason : Blood Pressure : / mmHG Vent. Rate : 103 BPM Atrial Rate : 122 BPM P-R Int : 000 ms QRS Dur : 116 ms QT Int : 294 ms P-R-T Axes : 000 085 265 degrees QTc Int : 385 ms Atrial fibrillation with rapid ventricular response Low voltage QRS Incomplete right bundle branch block Nonspecific ST and T wave abnormality Abnormal ECG When compared with ECG of 18-NOV-2020 05:04, Ventricular paced complex is no longer present Confirmed by Uriel Bose ([id number]) on 11/19/2020 6:00:31 AM Referred By: Luis Miguel SCI Confirmed By:Uriel Bose
[2020-11-19 06:13] LABS: Estimated Average Glucose 108 mg/dl; Hemoglobin A1C 5.4 % (4.5-5.6)
--- NOTE | 2020-11-19 07:25 | XRay Report ---
XR chest 1V portable CLINICAL HISTORY: Respiratory failure. COMPARISON STUDY: Chest radiograph and chest CT November 18, 2020. FINDINGS: Left subclavian pacemaker is in place. No pneumothorax is present. Small right pleural effu ashanti is noted. There is a trace left pleural effusion. Extensive multifocal right lung consolidation is noted. Mild left lung airspace opacity is present. Left lung opacity has slightly increased. IMPRESSION: 1. Persistent extensive multifocal right lung opacity suggestive of pneumonia. Slight increase in mil d left lung airspace opacity. 2. Small right and trace left pleural effusions. No pneumothorax. ACT 112: Negative or not required by law. Electronically signed by: Bakari Trevino M.D. 11/19/2020 7:24 AM
[2020-11-19] MEDS: ALBUT/IPRATROP 3MG/0.5MG NEB 3 ML VIAL INH SCH ×4 (09:32→18:58)
--- NOTE | 2020-11-19 10:01 | Hospitalist Progress Note ---
Date of Service November 19, 2020 Assessment & Plan (1) Acute hypoxemic respiratory failure: Quinn is a 75 year old male with a past medical history significant for small cell lung cancer treated with chemotherapy, COPD, atrial fibrillation anticoagulated with warfarin, ischemic caridomyopathy with ICD and schizophrenia presenting with dyspnea and a fib with RVR, found to have new right upper lobe consolidation. Hypoxemic respiratory failure secondary to airspace consolidation: - Most likely bacterial pneumonia in the setting of radiation pneumonitis with underlying COPD - panlobar rhonchi, right sided consolidation on CXR and CT - WBC 15, afebrile, blood cultures negative, sputum cultures pending, nasal swab positive for MRSA - 94% on oxymask 8L, goal spO2 >90% - day 2 IV vancomycin and zosyn - IV lasix being held - Congestive heart failure secondary to ischemic cardiomyopathy less likely - BNP 07536, no baseline for comparsion - No peripheral edema on exam - EF wnl on echo A fib RVR: - Rate control is the primary goal - Cardioverted in the ED and regained regularly placed rhythm. - In a fib today, HR 110s - IV amiodarone and IV metoprolol 50mg BID per cardiology recommendations. - No concern for bradycardia with metoprolol given ICD. Supratherapeutic INR: - On admission INR was 5.6 -> 6.1 today. - Warfarin being held, 2.5 mg of vitamin K administered - Monitor INR Chronic kidney disease and electrolyte stabilization: - Creatinine is stable at 1.2 today. - Replete Magnesium (1.7) to goal 2 - Replete potassium (3.5) to goal 4 Goals of care: - tile power shear operator and palliative care team both had conversations with patient regarding capacity and goals of care - Capable of decision making per palliative care - Appropriate insight into his disease, causes and possible complications - He has expressed desire for full code status. DVT ppx: held in setting of supratherapeutic INR FEN/GI: NPO Code Status: Full Code Dispo: ICU, will likely need PT/OT later in hospital stay for rehab placement Resident Attestation: I saw this patient with student doctor Cesar Nur and agree with the findings above, with the exceptions and changes marked in red. Dr. Fay Richards, PGY2 Admission and Anticipated Discharge Date Admission Date: November 17, 2020 Results & Data Results & Data ([facility]) Vital Signs (Past 12 Hours) Vital Signs Temp Pulse Pulse Resp BP Pulse Ox 11/19/20 09:34 119 H 22 94 11/19/20 09:33 119 H 22 95 11/19/20 07:00 36.7 C 110 H 21 92 11/19/20 06:38 36.7 C 102 H 17 113/93 91 11/19/20 04:38 36.9 C 113 H 16 119/91 90 11/19/20 03:41 107 H 14 91 11/19/20 03:00 37.1 C 115 H 20 92 11/19/20 02:38 37.0 C 140 H 25 H 143/116 H 85 L 11/19/20 02:00 37.0 C 94 H 17 93 11/19/20 01:30 37.0 C 109 H 22 94 11/19/20 01:00 37.1 C 103 H 17 93 11/19/20 00:06 104 H 16 97 11/19/20 00:05 37.2 C 100 H 21 136/95 97 11/19/20 00:00 37.2 C 101 H 19 96 11/18/20 23:50 37.2 C 94 H 18 132/101 H 97 11/18/20 23:35 37.2 C 115 H 13 135/108 H 95 11/18/20 23:30 37.2 C 102 H 22 97 11/18/20 23:20 37.2 C 102 H 18 123/98 99 11/18/20 23:06 37.1 C 112 H 14 134/91 93 11/18/20 22:53 111 H 11/18/20 22:50 37.1 C 104 H 21 146/108 H 93 11/18/20 22:48 37.1 C 113 H 23 135/95 94 11/18/20 22:35 37.1 C 112 H 19 135/95 96 11/18/20 22:30 37.1 C 115 H 17 96 11/18/20 22:21 37.1 C 103 H 14 126/93 95 11/18/20 22:05 37.1 C 104 H 16 113/89 96
[2020-11-19] MEDS ORDERED: METOPROLOL TARTRATE 1 MG/ML VIAL IV STA (10:31)
[2020-11-19] MEDS ORDERED: MAGNESIUM SULFATE / D5W 1 GM/100 ML BAG IV ONE (10:33)
[2020-11-19] MEDS: DOCUSATE SODIUM/SENNA 50/8.6MG TAB PO SCH (10:59)
[2020-11-19] MEDS: POTASSIUM CHLORIDE CRTAB 20 MEQ TABCR PO SCH (10:59)
[2020-11-19] MEDS: METOPROLOL TARTRATE 50 MG TAB PO SCH ×2 (10:59→20:13)
[2020-11-19] MEDS: predniSONE 10 MG TABLET PO SCH (10:59)
[2020-11-19 11:00] LABS: iSTAT Arterial Blood Gas HCO3 28 meg/L (19-24); iSTAT Arterial Blood Gas pCO2 40 mmHg (35-46); iSTAT Arterial Blood Gas pH 7.46 (7.35-7.45); iSTAT Arterial Blood Gas pO2 65 mmHg (80-95); iSTAT Carbon Dioxide 30 mmol/L (24-31); iSTAT Hematocrit 33 % (42-52); iSTAT Hemoglobin 11.2 g/dl (14.0-18.0); iSTAT Potassium 3.2 mmol/L (3.3-5.0); iSTAT Sodium 137 mmol/L (135-144)
[2020-11-19] MEDS: POTASSIUM CHLORIDE / WTR 10 MEQ/100 ML PLCT IV SCH ×3 (11:10→14:24)
[2020-11-19] MEDS ORDERED: VANCOMYCIN TROUGH ONE (11:30)
[2020-11-19 11:44] LABS: Digoxin 0.9 ng/ml (0.8-2.0); Vancomycin Trough 17.9 mcg/ml (See Comment)
--- NOTE | 2020-11-19 11:49 | Pharmacy Report ---
Pharmacy Abx Dose Short Note - Date of Service November 19, 2020 - Assessment & Plan Assessment 75 year old M receiving VANCOMYCIN/ZOSYN for treatment of pneumonia. Discussed with provider,will plan on a 7 days course for both. MRSA nasal swab positive. Difficulty obtaining sputum culture at this time. Day # 3/7 of antimicrobial therapy. Plan Vancomycin * Trough level of 17.9 mcg/mL is therapeutic, however level drawn ~50 minutes early. Anticipate level would still be therapeutic. * Continue dose of 750 mg IV every 12 hours * Goal trough level : 15 to 20 mcg/mL * Trough or random level ordered for: 11/21/20 @ 1130 Pharmacy will continue to follow and will adjust dose/frequency as necessary. Thank you.
[2020-11-19] MEDS ORDERED: RAPID SEQUENCE INDUCTION BAG ONE (11:56)
[2020-11-19] MEDS ORDERED: DIGOXIN 500 MCG/2 ML AMP IV SCH (12:00)
[2020-11-19] MEDS ORDERED: PROPOFOL IV EMULSION 10 MG/ML 100 ML VIAL IV ONE (12:12)
[2020-11-19] MEDS ORDERED: STAT IV Infusion **Titration per Protocol STA ×4 (12:26→22:02)
--- NOTE | 2020-11-19 12:37 | Cardiology Progress Note ---
Date of Service November 19, 2020 Assessment & Plan (1) Paroxysmal atrial fibrillation: (2) Atrial fibrillation with RVR: (3) Acute hypoxemic respiratory failure: (4) Cardiac pacemaker: (5) Anticoagulant long-term use: (6) SSS (sick sinus syndrome): ASSESSMENT/PLAN: 1. Paroxysmal atrial fibrillation with rapid ventricular response: He was successfully converted in the ER on 11/17/20 with DC CV and amiodarone was initiated but he is once again in AFib with RVR. Blood pressure has improved. Beta-dilip was initiated yesterday as he takes metoprolol succinate 100 mg daily at home. Unfortunately he is unable to take p.o. currently. Continue amiodarone with the hopes of using it as rate control for the time being and hopefully he converts to sinus rhythm. If he survives his current respiratory failure, could also consider repeat electrical cardioversion after amiodarone load. Will also start digoxin. He received 1 dose yesterday by the critical care team. Will give 250 mcg IV q.6 hours x2 doses today and then likely daily dosing thereafter. Continue anticoagulation for stroke risk reduction. Coumadin is currently held due to the fact that INR is supratherapeutic. If INR drops below 2, would start heparin drip. 2. Acute hypoxemic respiratory failure: He does not appear to be significantly hypervolemic but would try to keep I&Os negative while monitoring renal function. His respiratory status has declined. In respiratory distress. Discussed with critical care family practice resident and nursing staff. Plan was to intubate soon. Since he was seen this morning, he has undergone endotracheal intubation by the critical care team. 3. Sick sinus syndrome s/p Dual chamber pacemaker: Follows with Dr. Calle of electrophysiology. 4. Anticoagulation therapy: INR supratherapeutic. Coumadin is being held for this reason. While acutely ill, would consider starting heparin drip when INR approaches 2. 5. Disposition: Cardiology will continue to follow. Patient care discussed with nursing staff and critical care family practice resident. I also spoke today with Dr. Calle, his primary grinder hardboard/belt maker to update him on his current status and current treatment plan. 32 minutes critical care time. This includes adjusting medical therapy in an attempt to improve his arrhythmia/heart rate, discussing with nursing staff and critical care team in regards to his worsening respiratory status, reviewing images, reviewing chart, entering orders, and chart completion. Admission and Anticipated Discharge Date Admission Date: November 17, 2020 Subjective Patient was seen late this morning. He appeared to be in respiratory distress. He denies chest pain. He confirmed that he is short of breath. He was not conversive today and was not overly engaging when asked questions. Nursing reports that he is unable to take p.o. with his current breathing issues. Two [employer] guards were at the bedside. Review of systems: As above. Physical Exam Physical Exam: Gen.: Appeared to be in respiratory distress while on BiPAP. Somnolent but arousable with verbal stimuli. HEENT: Anicteric sclera. Neck: No appreciable JVD. Cardiac: Irregularly irregular and tachycardic. Normal S1-S2. No murmurs, rubs, or gallops. Pulmonary: Coarse breath sounds throughout the right lung field. Left lung was clear on anterior auscultation. Abdomen: Soft, nontender, nondistended, with hypoactive bowel sounds. No bruits noted. Extremities: 2+ right radial pulse. Left radial pulse not palpable. 1+ posterior tibialis pulses bilaterally. Trace bilateral lower extremity edema. No cyanosis. Results & Data ([facility]) Vital Signs (Past 12 Hours) Vital Signs Temp Pulse Pulse Resp BP Pulse Ox 11/19/20 12:30 94 H 20 94 11/19/20 11:33 113 H 113 H 26 H 94 11/19/20 11:00 112 H 129/80 11/19/20 10:38 37.0 C 127 H 21 129/80 95 11/19/20 10:00 36.9 C 130 H 31 H 93 11/19/20 09:34 119 H 22 94 11/19/20 09:33 119 H 22 95 11/19/20 09:00 36.8 C 124 H 34 H 85 L 11/19/20 08:38 36.8 C 112 H 25 H 135/90 97 11/19/20 08:00 36.8 C 124 H 15 97 11/19/20 07:00 36.7 C 110 H 21 92 11/19/20 06:38 36.7 C 102 H 17 113/93 91 11/19/20 04:38 36.9 C 113 H 16 119/91 90 11/19/20 03:41 107 H 14 91 04/13/21 03:00 37.1 C 115 H 20 92 11/19/20 02:38 37.0 C 140 H 25 H 143/116 H 85 L 11/19/20 02:00 37.0 C 94 H 17 93 11/19/20 01:30 37.0 C 109 H 22 94 11/19/20 01:00 37.1 C 103 H 17 93 Intake & Output 11/17/20 11/18/20 11/19/20 11/20/20 06:59 06:59 06:59 06:59 Intake Total 1916.72 / 1916.72 1916.940 / 1916.940 262.515 / 262.515 Output Total 2750 / 2750 1400 / 1400 Balance -833.28 / -833.28 516.940 / 516.940 262.515 / 262.515 Weight 173 lb 15.115 oz 173 lb 15.115 oz Laboratory Results Laboratory Results - last 24 hr 11/18/20 11/18/20 11/18/20 15:54 19:55 23:58 WBC RBC Hgb POC Hgb Hct POC Hct MCV MCH MCHC RDW Std Deviation RDW Coeff of Ivis Plt Count MPV Immature Gran % (Auto) Neut % (Auto) Lymph % (Auto) Rogers % (Auto) Eos % (Auto) Baso % (Auto) Neut # (Auto) Lymph # (Auto) Rogers # (Auto) Eos # (Auto) Baso # (Auto) Immature Gran # (Auto) PT INR POC pH POC pCO2 POC pO2 POC HCO3 POC Total CO2 POC Base Excess POC ABG O2 Sat POC Sodium Sodium POC Potassium Potassium Chloride Carbon Dioxide Anion Gap BUN Creatinine Est Cr Clr Drug Dosing Est GFR ( Amer) Est GFR (Non-Af Amer) BUN/Creatinine Ratio Glucose POC Glucose 173 H 161 H 139 H Estimat Average Glucose Hemoglobin A1c Calcium Magnesium Vancomycin Trough Digoxin 11/19/20 11/19/20 11/19/20 04:11 04:23 04:23 WBC 13.17 H RBC 3.32 L Hgb 10.6 L POC Hgb Hct 31.5 L POC Hct MCV 94.9 MCH 31.9 MCHC 33.7 RDW Std Deviation 54.6 H RDW Coeff of Ivis 16.1 H Plt Count 148 MPV 9.1 Immature Gran % (Auto) 0.3 Neut % (Auto) 92.3 Lymph % (Auto) 3.7 Rogers % (Auto) 3.5 Eos % (Auto) 0.2 Baso % (Auto) 0.0 Neut # (Auto) 12.16 H Lymph # (Auto) 0.49 L Rogers # (Auto) 0.46 Eos # (Auto) 0.02 Baso # (Auto) 0.00 Immature Gran # (Auto) 0.04 H PT INR POC pH POC pCO2 POC pO2 POC HCO3 POC Total CO2 POC Base Excess POC ABG O2 Sat POC Sodium Sodium POC Potassium Potassium Chloride Carbon Dioxide Anion Gap BUN Creatinine Est Cr Clr Drug Dosing Est GFR ( Amer) Est GFR (Non-Af Amer) BUN/Creatinine Ratio Glucose POC Glucose 143 H Estimat Average Glucose 108 Hemoglobin A1c 5.4 Calcium Magnesium Vancomycin Trough Digoxin 11/19/20 11/19/20 11/19/20 04:23 04:23 08:11 WBC RBC Hgb POC Hgb Hct POC Hct MCV MCH MCHC RDW Std Deviation RDW Coeff of Ivis Plt Count MPV Immature Gran % (Auto) Neut % (Auto) Lymph % (Auto) Rogers % (Auto) Eos % (Auto) Baso % (Auto) Neut # (Auto) Lymph # (Auto) Rogers # (Auto) Eos # (Auto) Baso # (Auto) Immature Gran # (Auto) PT 29.8 H INR 3.2 H POC pH POC pCO2 POC pO2 POC HCO3 POC Total CO2 POC Base Excess POC ABG O2 Sat POC Sodium Sodium 139 POC Potassium Potassium 3.2 L Chloride 103 Carbon Dioxide 29 Anion Gap 7.0 BUN 27 H Creatinine 1.11 Est Cr Clr Drug Dosing 57.4 Est GFR ( Amer) 75.9 Est GFR (Non-Af Amer) 65.5 BUN/Creatinine Ratio 24.5 H Glucose 136 H POC Glucose 117 H Estimat Average Glucose Hemoglobin A1c Calcium 7.9 L Magnesium 1.8 Vancomycin Trough Digoxin 11/19/20 11/19/20 11/19/20 10:42 10:42 10:42 WBC RBC Hgb POC Hgb Hct POC Hct MCV MCH MCHC RDW Std Deviation RDW Coeff of Ivis Plt Count MPV Immature Gran % (Auto) Neut % (Auto) Lymph % (Auto) Rogers % (Auto) Eos % (Auto) Baso % (Auto) Neut # (Auto) Lymph # (Auto) Rogers # (Auto) Eos # (Auto) Baso # (Auto) Immature Gran # (Auto) PT INR POC pH POC pCO2 POC pO2 POC HCO3 POC Total CO2 POC Base Excess POC ABG O2 Sat POC Sodium Sodium POC Potassium Potassium Chloride Carbon Dioxide Anion Gap BUN Creatinine Est Cr Clr Drug Dosing Est GFR ( Amer) Est GFR (Non-Af Amer) BUN/Creatinine Ratio Glucose POC Glucose Estimat Average Glucose Hemoglobin A1c Calcium Magnesium 1.7 L Vancomycin Trough 17.9 Digoxin 0.9 Cancelled 11/19/20 11/19/20 10:45 11:51 WBC RBC Hgb POC Hgb 11.2 L Hct POC Hct 33 L MCV MCH MCHC RDW Std Deviation RDW Coeff of Ivis Plt Count MPV Immature Gran % (Auto) Neut % (Auto) Lymph % (Auto) Rogers % (Auto) Eos % (Auto) Baso % (Auto) Neut # (Auto) Lymph # (Auto) Rogers # (Auto) Eos # (Auto) Baso # (Auto) Immature Gran # (Auto) PT INR POC pH 7.46 H POC pCO2 40 POC pO2 65 L POC HCO3 28 H POC Total CO2 30 POC Base Excess 4.0 H POC ABG O2 Sat 93.0 POC Sodium 137 Sodium POC Potassium 3.2 L Potassium Chloride Carbon Dioxide Anion Gap BUN Creatinine Est Cr Clr Drug Dosing Est GFR ( Amer) Est GFR (Non-Af Amer) BUN/Creatinine Ratio Glucose POC Glucose 131 H Estimat Average Glucose Hemoglobin A1c Calcium Magnesium Vancomycin Trough Digoxin Diagnostic Findings Telemetry personally reviewed: Atrial fibrillation with rapid ventricular response. CT chest 11/18/2020: Interstitial thickening and consolidative airspace opacities throughout the majority of the right lung, progressed compared to prior chest CT. Partial mucoid opacification of right bronchi, most pronounced within the right lower lobe. Spiculated 4 cm masslike opacity right lower lobe. Small bilateral pleural effusions. Emphysema. Small pericardial effusion. CT images personally reviewed. Chest x-ray 11/19/2020 personally reviewed: Extensive multifocal right lung opacity. Slight increase in mild left lung airspace opacity per Radiology. Small right and trace left pleural effusions. ECG personally reviewed from 11/19/2020: AFib with RVR 107 beats per minute. Nonspecific ST/T-wave abnormality. Medications Administered Current Inpatient Medications Albuterol (Albut/Ipratrop 3mg/0.5mg Neb 3 Ml Vial) 3 ml INH QIDR JARRET Stop: 12/17/20 18:59 Last Admin: 11/19/20 11:32 Dose: Not Given Documented by: Atorvastatin Calcium (Atorvastatin 20 Mg Tab) 20 mg PO HS JARRET Stop: 12/17/20 20:59 Last Admin: 11/18/20 20:33 Dose: 20 mg Documented by: Dextrose (Dextrose 50% 50 Ml Syringe) 25 - 50 ml IV UD PRN; Protocol PRN Reason: Hypoglycemia Protocol Stop: 12/18/20 00:29 Glucagon (Glucagon For Inj 1 Mg Vial) 1 mg SQ UD PRN; Protocol PRN Reason: Hypoglycemia Protocol Stop: 12/18/20 00:29 Glucose (Glucose 40% Gel 15 Gm Tube) 15 - 30 gm PO UD PRN; Protocol PRN Reason: Hypoglycemia Protocol Stop: 12/18/20 00:29 Glucose (Glucose 10 Tabs/Tube) 4 - 8 tabs PO UD PRN; Protocol PRN Reason: Hypoglycemia Protocol Stop: 12/18/20 00:29 Amiodarone HCl/Dextrose (Nexterone / D5w) 360 mg in 200 mls @ 16.667 mls/hr IV .Q12H JARRET Stop: 12/17/20 19:09 Last Infusion: 11/19/20 10:54 Dose: 0.5 mg/min, 16.7 mls/hr Documented by: Piperacillin Sod/Tazobactam (Sod 3.375 gm/ Dextrose) 115 mls @ 28.75 mls/hr IV Q8H JARRET; Protocol Stop: 11/24/20 05:59 Last Admin: 11/19/20 08:49 Dose: 28.8 mls/hr Documented by: Famotidine 20 mg/ Syringe 5 mls @ 2.5 mls/min IV Q12H JARRET Stop: 12/17/20 15:59 Last Admin: 11/19/20 03:02 Dose: 2.5 mls/min Documented by: Vancomycin HCl 750 mg/ Sodium (Chloride) 265 mls @ 200 mls/hr IV Q12H JARRET Stop: 11/25/20 00:00 Last Infusion: 11/19/20 01:20 Dose: Infused Documented by: Potassium Chloride (K Charli / Wtr) 10 meq in 100 mls @ 100 mls/hr IV Q1H [facility] Stop: 11/19/20 13:59 Last Admin: 11/19/20 11:10 Dose: 100 mls/hr Documented by: Methylprednisolone 40 mg/ (Syringe) 1 mls @ 1.5 mls/min IV TID [facility] Stop: 12/19/20 13:59 Digoxin 250 mcg/ Syringe 10 mls @ 2 mls/min IV Q6H [facility] Stop: 11/19/20 18:01 Dexmedetomidine HCl 200 mcg/ (Sodium Chloride) 50 mls @ 3.945 mls/hr IV .[id number] [facility]; Protocol Stop: 11/23/20 12:29 Insulin Aspart (Insulin Aspart 100 Units/Ml 3 Ml Pen) 0 units SC Q4 [facility] Stop: 12/18/20 00:29 Last Admin: 11/19/20 08:41 Dose: Not Given Documented by: Insulin Glargine (Insulin Glargine Solostar 100 Units/Ml 3 Ml Pen) 0 units SC HS ONE; Protocol Stop: 11/19/20 21:01 Levalbuterol HCl (Levalbuterol Tartrate 15 Gm Hfa.Aer.Ad) 2 puffs INH QID PRN PRN Reason: Shortness Of Breath Stop: 12/17/20 16:11 Metoprolol Tartrate (Metoprolol Tartrate 50 Mg Tab) 50 mg PO BID [facility] Stop: 12/18/20 10:29 Last Admin: 11/19/20 10:59 Dose: Not Given Documented by: Miscellaneous (Carbohydrates For Hypoglycemia ) 15 - 30 gm PO UD PRN PRN Reason: Hypoglycemia Treatment Stop: 12/18/20 00:29 Miscellaneous Information (Vancomycin Consult Active) 1 ea N/A UD PRN PRN Reason: Consult Stop: 12/17/20 13:02 Miscellaneous Information (Piperacill/Tazobac Consult Active) 1 ea N/A UD PRN PRN Reason: Consult Stop: 12/17/20 15:59 Miscellaneous Information (Pharmacy Glycemic Mgmt Consult) 1 ea N/A UD PRN PRN Reason: Consult Stop: 12/18/20 00:24 Potassium Chloride (Potassium Chloride Crtab 20 Meq Tabcr) 20 meq PO DAILY [facility] Stop: 12/18/20 08:59 Last Admin: 11/19/20 10:59 Dose: Not Given Documented by: Prednisone (Prednisone 10 Mg Tablet) 10 mg PO DAILY [facility] Stop: 12/18/20 08:59 Last Admin: 11/19/20 10:59 Dose: Not Given Documented by: Senna/Docusate Sodium (Docusate Sodium/Senna 50/8.6mg Tab) 2 tab PO QAM [facility] Stop: 12/18/20 08:59 Last Admin: 11/19/20 10:59 Dose: Not Given Documented by: Sennosides (Senna 8.6 Mg Tab) 17.2 mg PO HS [facility] Stop: 12/17/20 20:59 Last Admin: 11/18/20 20:33 Dose: 17.2 mg Documented by: Warfarin Sodium (Warfarin Sod 2 Mg Tab) 2 mg PO DAILY@1600 [facility] Stop: 12/18/20 15:59 PG Care Time/CCT Total # of Minutes Spent Total Time Spent with Patient: Total time spent is greater than 50% in coordination of care (as documented) at patient's floor/unit and/or counseling patient: Critical Care Time: Yes Total Critical Care Time: 32 Coding Level of Care Code None Diagnoses Paroxysmal atrial fibrillation I48.0 Atrial fibrillation with RVR I48.91 Acute hypoxemic respiratory failure J96.01 Cardiac pacemaker Z95.0 Anticoagulant long-term use Z79.01 SSS (sick sinus syndrome) I49.5 Additional Codes Critical Care Time - Critical Care Time: Yes ([id number]) Time Spent (min) 32 Comment [id number]
--- NOTE | 2020-11-19 12:40 | Procedure Note ---
Procedure Note Date of Service November 19, 2020 Note INTUBATION PROCEDURE NOTE: Dr. Abdiaziz Paredes A time-out was completed verifying correct patient, procedure, site, positioning. Patient was evaluated and required intubation for hypoxemic respiratory failure. Sedative agent used: 20 mg etomidate Paralysis agent used: 50 mg rocuronium Emergent consent was implied given patients rapidly declining clinical status and need for airway protection. Number of attempts: 1 The patient was prepared in the appropriate fashion. Sedation was achieved utilizing 20 mg of etomidate and 50 mg rocuronium. The patient was easily ventilated using [id number] to achieve adequate oxygenation. A 8 American endotracheal tube was placed under video laryngoscope guidance to 25 cm at the lip. The stylette was removed and balloon was inflated with 10mL of air. Appropriate Colorimetric change was appreciated. Bilateral breath sounds were heard without air sounds in the abdomen. Post Intubation Chest X-ray ordered Patient tolerated the procedure well and there were no immediate complications. Coding CPT Codes Resuscitation - Resuscitation: 35350 Endotracheal Intubation, emergency ([id number]) [facility] [place], [place] Procedure Codes (Charges) Resuscitation Resuscitation: 44436 Endotracheal Intubation, emergency
[2020-11-19] MEDS ORDERED: DIGOXIN 125 MCG in SYRINGE 9 ML IV SCH (13:00)
[2020-11-19] MEDS: DEXMEDETOMIDINE HCL 200 MCG in SODIUM CHLORIDE 0.9% 48 ML IV SCH ×2 (13:03→23:14)
[2020-11-19] MEDS: DIGOXIN 250 MCG in SYRINGE 9 ML IV SCH ×2 (13:04→14:45)
[2020-11-19] MEDS: VANCOMYCIN HCL 750 MG in SODIUM CHLORIDE 0.9% 250 ML IV SCH ×3 (13:06→23:43)
--- NOTE | 2020-11-19 13:07 | Critical Care Progress Note ---
Date of Service November 19, 2020 Assessment & Plan (1) Pneumonitis: (2) Acute hypoxemic respiratory failure: (3) Elevated INR: Impression: 75-year-old male with history of advanced small cell lung cancer status post radiation therapy and chemotherapy. He completed therapy in August. He was admitted to the facility in September with a pleural effusion and underwent drainage at that point time. He is now on acute hypoxemic respiratory failure secondary to pneumonia and pneumonitis. Recommendations: 1. Neurologic: Continue with Precedex and fentanyl given the patient is now intubated. 2. Respiratory: Patient is currently intubated. Continue lung protective ventilation strategy. CT chest 11/18/2020 demonstrates consolidative process interstitial thickening throughout the right lung. There is also mucoid impaction in the right lower lobes. Small pericardial and bilateral pleural effusions noted. Patient started on IV Solu-Medrol 40 mg 3 times daily. Continue vancomycin and Zosyn. Will obtain a sputum culture. Will consider bronchoscopy. Etiology of the pneumonic process includes pneumonitis from chemo/radiation and/or pneumonia. 3. Cardiovascular: Atrial fibrillation with rapid ventricular response. Cardiology is assisting in management. Currently on an amiodarone drip. He does have a pacemaker. Also received digoxin load yesterday. Digoxin level 0.8. Continue with p.o. metoprolol as he now has an OG tube. INR therapeutic today with INR level 3.2. We will hold on warfarin today. Echocardiogram on 11/18/2020 demonstrated EF of 40 to 45%. Small pericardial effusion was seen. Right ventricular systolic function is mildly reduced. 4. ID: Procalcitonin was unremarkable. Again the infiltrate could represent pneumonia versus pneumonitis. Nasal MRSA is positive. Continue vancomycin and Zosyn. Blood cultures negative thus far. Will obtain sputum cultures. Will follow clinically. 5. Heme-onc: INR therapeutic. Hold on Coumadin today. Appreciate palliative care and oncology input. He has locally advanced small cell lung cancer. Overa ll prognosis is very poor. 6. Endocrine: Glycemic control per ICU protocol 7. GI: No current issues. 8. Renal: Serum creatinine appears stable compared to prior. Replacing electrolytes to keep potassium above 4 magnesium above 2 especially in light of his atrial fibrillation. CRITICAL CARE TIME - I have personally spent 51 minutes of critical care time in the direct management of this patient. This is a life/limb threatening event. This includes time spent evaluating patient, direct bedside care, chart review, placing orders, interpretation of diagnostic studies, discussion with consultants, patient, and family members, as well as other required patient management activities. This time is exclusive of all separately billable procedures, and teaching time and separate from and in addition to any other critical care service time. (4) Chronic obstructive pulmonary disease: (5) Acute and chronic respiratory failure with hypoxia: (6) Small cell lung 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: (7) Ventilatory failure: Admission and Anticipated Discharge Date Admission Date: November 17, 2020 Subjective Patient seen and examined this morning with worsening respiratory failure. I emergently intubated the patient due to paradoxical breathing and severe hypoxia noted on the BiPAP. He is also having atrial fibrillation with rapid ventricular response with rates in the 130s. Patient appears lethargic. Unable to give review of systems. Physical Exam 2 Constitutional: + acute distress, + thin, + cachectic and + frail appearing Neck: trachea midline, no thyromegaly Respiratory: + respiratory distress and + labored breathing Auscultation: + rales; no wheezes Cardiovascular: RRR, no murmur, no edema Gastrointestinal (Abdomen): normal bowel sounds, soft, nontender, no hepatosplenomegaly Musculoskeletal: Extremities: extremities normal to inspection Skin: no rashes, warm and dry Neurologic: Nonfocal exam Lymphatic: no cervical lymphadenopathy Results & Data Results & Data ([facility]) Vital Signs (Past 12 Hours) Vital Signs Temp Pulse Pulse Resp BP Pulse Ox 11/19/20 12:30 94 H 20 94 11/19/20 11:33 113 H 113 H 26 H 94 11/19/20 11:00 112 H 129/80 11/19/20 10:38 98.6 F 127 H 21 129/80 95 11/19/20 10:00 98.4 F 130 H 31 H 93 11/19/20 09:34 119 H 22 94 11/19/20 09:33 119 H 22 95 11/19/20 09:00 98.2 F 124 H 34 H 85 L 11/19/20 08:38 98.2 F 112 H 25 H 135/90 97 11/19/20 08:00 98.2 F 124 H 15 97 11/19/20 07:00 98.1 F 110 H 21 92 11/19/20 06:38 98.1 F 102 H 17 113/93 91 11/19/20 04:38 98.4 F 113 H 16 119/91 90 11/19/20 03:41 107 H 14 91 11/19/20 03:00 98.8 F 115 H 20 92 11/19/20 02:38 98.6 F 140 H 25 H 143/116 H 85 L 11/19/20 02:00 98.6 F 94 H 17 93 11/19/20 01:30 98.6 F 109 H 22 94 11/19/20 01:00 98.8 F 103 H 17 93 I reviewed the vital signs, labs and imaging Coding Level of Care Code Critical Care 1st 30-74 mins Diagnoses Pneumonitis J18.9 Acute hypoxemic respiratory failure J96.01 Elevated INR R79.1 Chronic obstructive pulmonary disease J44.9 COPD type: unspecified COPD Acute and chronic respiratory failure with hypoxia J96.21 Small cell lung 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 C34.90 Ventilatory failure R06.89 Time Spent (min) 51 (1) Chronic obstructive pulmonary disease COPD type: unspecified COPD Qualified Code(s): J44.9 - Chronic obstructive pulmonary disease, unspecified
--- NOTE | 2020-11-19 13:08 | XRay Report ---
XR chest 1V portable HISTORY: ET/ OG tube COMPARISON: Chest 11/19/2020 FINDINGS: Endotracheal tube terminates 5.5 cm from the luz maria. Nasogastric tube terminus below the di aphragm. Left-sided dual-chamber pacemaker is again noted. Right lung airspace opacities and a small right pleural effusion persists. There is mild diffuse interstitial thickening, unchanged. No pneumot horax. IMPRESSION: 1. Satisfactory support line placement. 2. No change in the right lung airspace opacities and small right pleural effusion. ACT 112: Negative or not required by law. Electronically signed by: Layton Dominguez M.D. 11/19/2020 1:06 PM
[2020-11-19] MEDS: methylPREDNISolone 40 MG in SYRINGE 0 ML IV SCH ×2 (13:22→20:04)
[2020-11-19] MEDS ORDERED: methylPREDNISolone 40 MG in SYRINGE 0 ML IV SCH (14:00)
[2020-11-19] MEDS: fentaNYL DRIP 1,250 MCG/250 ML BAG IV SCH (14:00)
[2020-11-19 14:18] LABS: iSTAT Arterial Blood Gas HCO3 31 meg/L (19-24); iSTAT Arterial Blood Gas pCO2 69 mmHg (35-46); iSTAT Arterial Blood Gas pH 7.26 (7.35-7.45); iSTAT Arterial Blood Gas pO2 73 mmHg (80-95); iSTAT Carbon Dioxide 33 mmol/L (24-31)
[2020-11-19] MEDS ORDERED: NOREPINEPHRINE/D5W 8 MG/508 ML IV ONE (15:34)
[2020-11-19 15:46] LABS: iSTAT Arterial Blood Gas HCO3 30 meg/L (19-24); iSTAT Arterial Blood Gas pCO2 58 mmHg (35-46); iSTAT Arterial Blood Gas pH 7.32 (7.35-7.45); iSTAT Arterial Blood Gas pO2 62 mmHg (80-95); iSTAT Carbon Dioxide 31 mmol/L (24-31)
[2020-11-19] MEDS ORDERED: SODIUM CHLORIDE 0.9% 1000ML 500 ML IV ONE (15:56)
[2020-11-19] MEDS ORDERED: DIGOXIN 0.125 MG TAB PO SCH (16:00)
[2020-11-19] MEDS: NOREPINEPHRINE/D5W 8 MG/508 ML BAG IV SCH (16:01)
[2020-11-19 16:40] LABS: BUN Creatinine Ratio 23.6 (10-20); Calcium 7.9 mg/dl (8.5-10.1); Creatinine Clr Calc Pharmacy 53.5 ml/min; Est GFR (African American) 69.8; Est GFR (Non-African American) 60.2; Magnesium 2.1 mg/dl (1.8-2.4); Phosphorus 3.3 mg/dl (2.5-4.9); Potassium 4.3 mmol/L (3.5-5.1)
--- NOTE | 2020-11-19 16:47 | Consultation Report ---
DATE OF CONSULTATION: 11/19/2020 REASON FOR CONSULTATION: A 75-year-old gentleman with locally advanced small cell lung cancer admitted for respiratory failure. HISTORY OF PRESENT ILLNESS: The patient is a pleasant 75-year-old care home inmate well known to [facility], recently completed chemoradiation on 09/11/2020 receiving 4 cycles of cisplatin and etoposide. I had actually seen the patient on 11/08/2020 at which time, he seemed to be doing reasonably well, regaining his appetite without complaint of pain or discomfort. My plan moving forward was to proceed with whole brain radiation prophylactically and to reassess him radiographically. Apparently, he was brought from the care home on 11/17/2020 in atrial fibrillation with rapid ventricular response. He apparently became acutely short of breath with rapid heart rate. Apparently, his heart rate was in excess of 150 en route to hospital. Over the past couple of days, I spoke to the Pulmonary Service to explain patient's radiographic studies indicate he has probable pneumonia, which is perhaps inflammatory or infectious. He is being covered with antibiotics. He is also on low dose corticosteroids. The patient has requested being full code, however, Pulmonary is hesitant to intubate him at this time. He is requiring continuous BiPAP and according to nursing personnel, patient was restless and agitated last night, requiring sedation. Thus, he is unable to converse with me at bedside. PAST MEDICAL HISTORY: Significant for anxiety, atrial fibrillation, COPD, chronic kidney disease, hyperlipidemia, hypertension, phlebitis, small cell lung cancer, sick sinus syndrome, syncope. PAST SURGICAL HISTORY: Status post appendectomy, tonsillectomy and biventricular cardiac pacemaker insertion. MEDICATIONS: Atorvastatin 20 mg p.o. daily, benztropine 1 mg p.o. daily, haloperidol 1 mg p.o. b.i.d., hydroxyzine 25 mg p.o. b.i.d., Xopenex 2 inhalations q.i.d. p.r.n., Montelukast 10 mg p.o. daily, tamsulosin 0.4 mg p.o. daily, warfarin 2 mg p.o. daily, metoprolol succinate 100 mg p.o. daily, potassium chloride 20 mEq p.o. daily, Alvesco 1 puff inhaled b.i.d., omeprazole 40 mg p.o. b.i.d., prednisone 10 mg p.o. as directed and DuoNeb 3 mL inhaled q. 4 hours. ALLERGIES: No known drug allergies. SOCIAL HISTORY: The patient is a prisoner, reformed smoker. FAMILY HISTORY: Unknown. REVIEW OF SYSTEMS: Unobtainable due to the patient's mental status. PHYSICAL EXAMINATION: GENERAL: Sedated 75-year-old gentleman with BiPAP in place, does not appear in distress. VITAL SIGNS: Temperature 36.7, pulse 110, respiratory rate 21, blood pressure 113/93. SKIN: Without rash or lesion. HEENT: Again, BiPAP in place. Oral examination not performed. NECK: Supple. HEART: Tachy, but regular. LUNGS: Diffuse rhonchi heard in all lung siddiqi. HEART: Tachycardic, but regular. ABDOMEN: Soft, nontender, nondistended. EXTREMITIES: No clubbing, cyanosis or edema. NEUROLOGIC: Again, patient is sedated. LABORATORY DATA: WBC count 13,170, hemoglobin 10.6, platelet count 148,000. PT 29.8 seconds, INR 3.2. Sodium 139, potassium 3.2, chloride 103, carbon dioxide 29, creatinine 1.11, BUN 27. RADIOGRAPHIC DATA: Chest x-ray done this morning. Persistent extensive multifocal right lung opacity suggestive of pneumonia, slight increase in mild left lung airspace opacity. IMPRESSION: 1. Pneumonia. 2. Acute hypoxemic respiratory failure requiring BiPAP. 3. Elevated INR. 4. Small cell lung cancer. 5. Atrial fibrillation with rapid ventricular response. PLAN: The patient is a pleasant 75-year-old care home inmate currently under care at [facility] for locally advanced small cell lung cancer. He recently completed chemoradiation utilizing etoposide and cisplatin in early September. I had seen the patient in followup on 11/08/2020 which time he was doing reasonably well. We plan to move forward with whole brain prophylactic radiation and radiographic surveillance thereafter. Apparently originally presented with atrial fibrillation with rapid ventricular response, which has slowly evolved into respiratory failure and probable pneumonia. Agree with pulmonary's approach empiric antibiotics and supportive care moving forward. The patient wishes to be full code. At this time, I cannot definitively say his cancer has returned, but clearly initial radiographs post-treatment showed no evidence of progression. Certainly small cell lung cancers despite all efforts tend to return and anticipate some point the patient's cancer will as well. That said, I have nothing further to add and will continue to follow the patient as scheduled after his visit with me on 11/08/2020. Thank you very much for allowing me to participate in his care. If you have any questions or concerns, please feel free to contact me at any time. JANICE
--- NOTE | 2020-11-19 17:04 | Procedure Note ---
Procedure Note Date of Service November 19, 2020 Note INTERNAL JUGULAR CENTRAL LINE PROCEDURE NOTE: Procedure: Internal Jugular Central Line Placement Indication: Central Drug Administration, Poor Venous Access, Multiple Lab Draws Necessary, etc. Anesthesia: Patient was on continuous Precedex and fentanyl/8 lidocaine 1% Consent was signed and placed on the chart prior to procedure. Indication, risks, and benefits were explained at length. A time-out was completed verifying correct patient, procedure, site, positioning, and implants(s) or special equipment if applicable. Patients right neck was cleansed and draped in the typical sterile fashion using Chloraprep. The Internal Jugular Vein and Carotid Artery were identified using ultrasound. The superficial tissue was anesthetized using 8 mL of 1% lidocaine without epinephrine under direct visualization with the ultrasound. After adequate anesthetization was achieved, the Internal Jugular vein was cannulated under direct ultrasound guidance using an introducer needle on a syringe. Good venous blood return was maintained prior to removal of syringe from introducer needle. Using Seldinger Technique, a guide wire was advanced through the introducer needle without resistance. The introducer needle was removed and ultrasound images were obtained of the guide wire within the Internal Jugular Vein and saved to the patients medical record. A small incision was made in penetrating fashion at the guide wire insertion site utilizing an 11 blade scalpel. The dilator was advanced to the vessel without resistance. The dilator was exchanged for the triple lumen catheter which was advanced into the vessel without resistance. The guide wire was removed intact from the catheter without issue. Claves were placed on each catheter tip with confirmation of good blood flow from each lumen. Each port was easily flushed with sterile saline. The catheter was placed at 17 cm and sutured in place. BioPatch was applied to the catheter and a sterile Tegaderm dressing was applied over the catheter with careful attention to sterility. Patient tolerated procedure well. No immediate complications were met. Post procedure x-ray was completed, placement was appropriate and no pneumothorax was noted. Images obtained are saved for permanent record Procedural Ultrasound Guidance used Images obtained are saved for permanent record. Coding CPT Codes Tubes, Drains, and Vasc Access - Tubes, Drains, and Vasc Access: [id number] Place catheter in vein superior or inferior vena cava ([id number]) Tubes, Drains, and Vasc Access - Tubes, Drains, and Vasc Access: [id number] [facility] Guide For Needle Placement ([id number]) [facility] Procedure Codes (Charges) Tubes, Drains, and Vasc Access Procedure 1: Tubes, Drains, and Vasc Access: [id number] Place catheter in vein superior or inferior vena cava Procedure 2: Tubes, Drains, and Vasc Access: [id number] Ultrasonic Guide For Needle Placement
[2020-11-19 17:24] LABS: Basophils # (auto) 0.01 K/uL (0-0.2); Basophils % (auto) 0.1 %; Eosinophils # (auto) 0.01 K/uL (0-0.5); Eosinophils % (auto) 0.1 %; Hemoglobin 10.6 g/dL (14.0-18.0); Immature Granulocytes # (auto) 0.04 K/uL (0.00-0.02); Immature Granulocytes % (auto) 0.3 %; Lymphocytes # (auto) 0.53 K/uL (1.2-3.4); Lymphocytes % (auto) 3.4 %; Mean Corpuscular Hemoglobin 31.5 pg (25-34); Mean Corpuscular Hgb Conc 33.1 g/dL (32-36); Mean Corpuscular Volume 95.2 fL (80-100); Mean Platelet Volume 9.6 fL (7.4-10.4); Monocytes # (auto) 0.15 K/uL (0.11-0.59); Neutrophils # (auto) 15.03 K/uL (1.4-6.5); Neutrophils % (auto) 95.1 %; Platelet Count 184 K/uL (130-400); RDW Coefficient of Variation 16.4 % (11.5-14.5); Red Blood Count 3.36 M/uL (4.7-6.1); White Blood Count 15.77 K/uL (4.8-10.8)
--- NOTE | 2020-11-19 17:47 | XRay Report ---
XR chest 1V portable HISTORY: check central line placement COMPARISON: Chest 11/19/2020. FINDINGS: Interval placement of right jugular central venous catheter which terminates in the expecte d location of the SVC. No pneumothorax. Right lung airspace opacities and a small right pleural effus ion persists. Left-sided dual-chamber pacemaker. Nasogastric tube terminates below the diaphragm. The tip is not included on this study. Endotracheal tube terminates 5.5 cm from the luz maria. IMPRESSION: 1. Satisfactory support line placement. 2. No pneumothorax. 3. No change in the right lung airspace opacities and small right pleural effusion. ACT 112: Negative or not required by law. Electronically signed by: Layton Dominguez M.D. 11/19/2020 5:45 PM
--- NOTE | 2020-11-19 17:52 | Medical Student Progress Note ---
Date of Service November 19, 2020 Assessment & Plan (1) Acute hypoxemic respiratory failure: Quinn is a 75 year old male with a past medical history significant for small cell lung cancer treated with chemotherapy, COPD, atrial fibrillation anticoagulated with warfarin, ischemic cardiomyopathy with ICD and schizophrenia presenting with dyspnea and a fib with RVR, found to have new right upper lobe consolidation. He is now requiring intubation. Hypoxemic respiratory failure secondary to airspace consolidation: - Most likely bacterial pneumonia in the setting of radiation pneumonitis with underlying COPD now requiring intubation - panlobar rhonchi, right sided consolidation on CXR and CT - WBC 13, afebrile, blood cultures negative, sputum cultures pending, nasal swab positive for MRSA - Underwent endotracheal intubation due to declining respiratory status and hypoxemia, Vent Settings: AC/22/450/8/60 - IV precedex and fentanyl for sedation - day 3 IV vancomycin and zosyn - IV lasix being held A fib RVR: - Rate control is the primary goal - Cardioverted in the ED and regained regularly placed rhythm. - In a fib today, HR 110s - 130s - IV amiodarone and IV metoprolol 50mg BID per cardiology recommendations - IV digoxin load yesterday, 250 mcg IV q.6 hours x2 today, digoxin level .8 Supratherapeutic INR: - On admission INR was 5.6 -> 6.1, now 3.2 - Warfarin being held - Monitor INR Chronic kidney disease and electrolyte stabilization: - Creatinine is stable at 1.2 today. - Replete Magnesium (1.8) to goal 2 - Replete potassium (3.2) to goal 4 Goals of care: - certified prosthetist vice president and palliative care team both had conversations with patient regarding capacity and goals of care - He has expressed desire for full code status. DVT ppx: held in setting of supratherapeutic INR FEN/GI: NPO Code Status: Full Code Dispo: ICU, will likely need PT/OT later in hospital stay for rehab placement Admission and Anticipated Discharge Date Admission Date: November 17, 2020 Supervising Attestation I personally examined the patient and verified all ac points of history and exam, discussed case, and agree with decision making with A Boom IYER. Deteriorated, required intubation. ICU care appreciated. Vitals noted, intubated sedated. No distress. No focal neuro deficits. Skin without pallor. Severe community-acquired pneumonia superimposed on radiation pneumonitiscontinue treatment for MRSA and Pseudomonas. Had worsening with respiratory failure requiring intubation. Continue ICU level care. A. fib with RVRfortunately no overt pulmonary edema. Continue rate control Otherwise as above Subjective Overnight the patient was agitated, pulling at the CPAP, and required Ativan twice. He was requiring additional respiratory support and was transitioned to B iPAP overnight. He was in significant respiratory distress throughout the day and was intubated due to hypoxemia and declining respiratory status. Review of Systems Review of Systems: Unobtainable due to reduced consciousness Physical Exam Physical Exam: General: Ill appearing in acute distress, cachectic, cooperative to exam Respiratory: Significant work of breathing, using accessory muscles, rhonchi and crackles heard across all lung siddiqi, worse on the right side. Cardiac: Tachycardic, in a fib. Heart sounds muffled Extremities: extremities pale and cool to touch, no peripheral edema noted, poor pedal pulses Neuro: sedated during exam, withdraws to painful stimuli Results & Data ([facility]) Vital Signs (Past 12 Hours) Vital Signs Temp Pulse Pulse Resp BP Pulse Ox 11/19/20 15:02 111 H 22 92 11/19/20 14:34 37.0 C 104 H 75/55 L 91 11/19/20 14:19 37.1 C 108 H 80/64 L 86 L 11/19/20 14:17 108 H 22 92 11/19/20 14:04 37.1 C 99 H 102/70 90 11/19/20 14:00 37.1 C 108 H 90 11/19/20 13:49 37.2 C 92 H 108/75 92 11/19/20 13:34 37.2 C 115 H 114/66 91 11/19/20 13:19 37.2 C 110 H 119/82 91 11/19/20 13:04 37.2 C 115 H 132/89 92 11/19/20 13:00 37.2 C 107 H 93 11/19/20 12:49 37.1 C 114 H 151/100 H 92 11/19/20 12:34 37.1 C 108 H 154/105 H 92 11/19/20 12:30 94 H 20 94 11/19/20 12:17 37.1 C 123 H 13 130/95 93 11/19/20 12:15 37.1 C 115 H 4 L 132/89 89 L 11/19/20 12:14 37.1 C 130 H 3 L 138/103 H 94 11/19/20 12:11 37.1 C 130 H 6 L 109/88 98 11/19/20 12:05 37.1 C 136 H 21 137/96 88 L 11/19/20 12:03 37.1 C 133 H 30 H 131/110 H 97 11/19/20 12:01 37.1 C 132 H 18 121/93 96 11/19/20 12:00 37.1 C 118 H 21 85 L 11/19/20 11:33 113 H 113 H 26 H 94 11/19/20 11:00 37.0 C 135 H 17 129/80 95 11/19/20 10:38 37.0 C 127 H 21 129/80 95 11/19/20 10:00 36.9 C 130 H 31 H 93 11/19/20 09:34 119 H 22 94 11/19/20 09:33 119 H 22 95 11/19/20 09:00 36.8 C 124 H 34 H 85 L 11/19/20 08:38 36.8 C 112 H 25 H 135/90 97 11/19/20 08:00 36.8 C 124 H 15 97 11/19/20 07:00 36.7 C 110 H 21 92 11/19/20 06:38 36.7 C 102 H 17 113/93 91
--- NOTE | 2020-11-19 18:43 | Ultrasound Report ---
LEFT UPPER EXTREMITY VENOUS DOPPLER HISTORY: new upper extremity (L) swelling in forearm COMPARISON STUDY: Left arm venous Doppler 09/09/2020. FINDINGS: The left internal jugular vein is patent. There is occlusive thrombus seen within the left subclavian and axillary veins, unchanged. Therefore, this is considered to be chronic. There is also thrombus seen within one of 2 brachial veins. Thrombus seen within the basilic vein from the proximal forearm to the proximal forearm. There is nonocclusive thrombus seen within a segment of the cephali c vein at the mid forearm. The ulnar and radial veins are patent. IMPRESSION: 1. Extensive chronic deep vein thrombosis within the left upper extremity as described above. 2. Thrombus seen within one of 2 brachial veins which is likely new from the prior study suggestive o f acute DVT. 3. Redemonstration of the basilic vein thrombus which is likely chronic. 4. Nonocclusive thrombus within a segment of the cephalic vein which is also new from the prior study . ACT 112: Negative or not required by law. Electronically signed by: Layton Dominguez M.D. 11/19/2020 6:42 PM
[2020-11-19] MEDS ORDERED: Heparin IV Adult Wt-Based Low-Dose *NO* Bolus Protocol IV SCH (19:17)
--- NOTE | 2020-11-19 19:36 | Billing Data ---
Date of Service November 19, 2020 Coding Level of Care Code 92610 Subseq Hosp Care Lvl 1
[2020-11-19] MEDS: ATORVASTATIN 20 MG TAB PO SCH (20:04)
[2020-11-19] MEDS: SENNA 8.6 MG TAB PO SCH (20:04)
[2020-11-19 20:10] LABS: Hematocrit (blood only) 31.7 % (42-52); Hemoglobin 10.5 g/dL (14.0-18.0); Immature Granulocytes # (auto) 0.04 K/uL (0.00-0.02); Immature Granulocytes % (auto) 0.3 %; Lymphocytes # (auto) 0.33 K/uL (1.2-3.4); Lymphocytes % (auto) 2.2 %; Mean Corpuscular Hemoglobin 31.8 pg (25-34); Mean Corpuscular Hgb Conc 33.1 g/dL (32-36); Mean Corpuscular Volume 96.1 fL (80-100); Mean Platelet Volume 9.8 fL (7.4-10.4); Monocytes # (auto) 0.19 K/uL (0.11-0.59); Monocytes % (auto) 1.3 %; Neutrophils # (auto) 14.31 K/uL (1.4-6.5); Neutrophils % (auto) 96.2 %; Platelet Count 182 K/uL (130-400); RDW Coefficient of Variation 16.4 % (11.5-14.5); RDW Standard Deviation 56.3 fL (36.4-46.3); White Blood Count 14.87 K/uL (4.8-10.8)
[2020-11-19 20:29] LABS: INR 3.2 (0.9-1.1); Partial Thromboplastin Ratio 1.7
[2020-11-19 20:35] LABS: Partial Thromboplastin Time 45.8 Seconds (21.0-31.0)
[2020-11-19] MEDS: HEPARIN SODIUM/DEXTROSE 25,000 UNITS/500 ML BAG IV SCH (20:48)
--- NOTE | 2020-11-19 20:57 | Procedure Note ---
Procedure Note Date of Service November 19, 2020 Note ARTERIAL LINE PROCEDURE NOTE: Procedure: Arterial Line Placement Attending: Dr. Paredes Provider: SID Koroma Indication: Monitoring on Pressors Anesthesia: None, patient is sedated on vent Line placed emergently as patient now requiring multi vasopressors to sustain hemodynamic function and need for continuous hemodynamic monitoring A time-out was completed verifying correct patient, procedure, site, positioning, and implant(s) or special equipment if applicable. Allens test was performed to ensure adequate perfusion. Patients right wrist was prepped and draped in the usual sterile fashion. Ultrasound guidance was used to aid needle placement. A 20g Arrow arterial line was introduced into the right radial artery. Catheter was threaded, and the needle was removed with appropriate blood return. Good waveform was observed. The patient tolerated the procedure well. Confirmation of placement with ultrasound. Blood Loss: Minimal Complications: None Procedural Ultrasound Guidance: Procedure Date: 11/19/2020 Indication: Arterial line insertion Attending: Dr. Paredes Provider: SID Koroma Artery Identified: YES Line confirmed in Artery with ultrasound: Yes Complications: NONE Patient tolerated procedure: WELL Coding CPT Codes Tubes, Drains, and Vasc Access - Tubes, Drains, and Vasc Access: [id number] Place Catheter In Artery ([id number]) Tubes, Drains, and Vasc Access - Tubes, Drains, and Vasc Access: [id number] Ultrasound Guidance For Vascular ([id number]) [facility] Procedure Codes (Charges) Tubes, Drains, and Vasc Access Procedure 3: Tubes, Drains, and Vasc Access: [id number] Place Catheter In Artery Procedure 4: Tubes, Drains, and Vasc Access: [id number] Ultrasound Guidance For Vascular
[2020-11-19] MEDS ORDERED: INSULIN GLARGINE SOLOSTAR 100 UNITS/ML 3 ML PEN SC ONE (21:00)
[2020-11-19] MEDS: VASOPRESSIN 20 UNITS in 0.9 % SODIUM CHLORIDE 100 ML IV SCH (22:33)
[2020-11-20] MEDS: DEXMEDETOMIDINE HCL 200 MCG in SODIUM CHLORIDE 0.9% 48 ML IV SCH ×8 (03:00→23:22)
[2020-11-20] MEDS: PIPERACILLIN/TAZOBACTAM 3.375 GM in DEXTROSE 5% 100 ML IV SCH ×3 (03:01→17:30)
[2020-11-20] MEDS: INSULIN ASPART 100 UNITS/ML 3 ML PEN SC SCH ×5 (03:02→20:48)
[2020-11-20] MEDS: FAMOTIDINE 20 MG in SYRINGE 3 ML IV SCH ×2 (03:03→15:56)
[2020-11-20 03:08] LABS: Hematocrit (blood only) 29.4 % (42-52); Immature Granulocytes # (auto) 0.02 K/uL (0.00-0.02); Immature Granulocytes % (auto) 0.2 %; Lymphocytes # (auto) 0.25 K/uL (1.2-3.4); Lymphocytes % (auto) 2.6 %; Mean Corpuscular Hemoglobin 32.3 pg (25-34); Mean Corpuscular Volume 94.8 fL (80-100); Mean Platelet Volume 10.1 fL (7.4-10.4); Monocytes # (auto) 0.07 K/uL (0.11-0.59); Monocytes % (auto) 0.7 %; Neutrophils # (auto) 9.42 K/uL (1.4-6.5); Neutrophils % (auto) 96.5 %; Platelet Count 168 K/uL (130-400); RDW Coefficient of Variation 16.4 % (11.5-14.5); RDW Standard Deviation 55.8 fL (36.4-46.3); White Blood Count 9.76 K/uL (4.8-10.8)
[2020-11-20 03:25] LABS: BUN Creatinine Ratio 23.2 (10-20); Creatinine Clr Calc Pharmacy 47.9 ml/min; Est GFR (Non-African American) 52.7; Potassium 4.4 mmol/L (3.5-5.1)
[2020-11-20] MEDS: AMIODARONE / D5W 360 MG/200 ML BAG IV SCH ×2 (03:26→08:42)
[2020-11-20 03:31] LABS: INR 3.9 (0.9-1.1); Partial Thromboplastin Ratio 2.4; Prothrombin Time 35.6 Seconds (9.0-12.0)
[2020-11-20 03:44] LABS: Partial Thromboplastin Time 63.2 Seconds (21.0-31.0)
[2020-11-20 04:27] LABS: iSTAT Arterial Blood Gas HCO3 29 meg/L (19-24); iSTAT Arterial Blood Gas pCO2 51 mmHg (35-46); iSTAT Arterial Blood Gas pH 7.35 (7.35-7.45); iSTAT Arterial Blood Gas pO2 76 mmHg (80-95); iSTAT Carbon Dioxide 30 mmol/L (24-31); iSTAT Hematocrit 28 % (42-52); iSTAT Hemoglobin 9.5 g/dl (14.0-18.0); iSTAT Potassium 4.2 mmol/L (3.3-5.0); iSTAT Sodium 135 mmol/L (135-144)
[2020-11-20] MEDS: VASOPRESSIN 20 UNITS in 0.9 % SODIUM CHLORIDE 100 ML IV SCH ×2 (05:18→13:41)
[2020-11-20] MEDS: fentaNYL DRIP 1,250 MCG/250 ML BAG IV SCH (06:21)
--- NOTE | 2020-11-20 06:22 | Electrocardiogram Report ---
Test Reason : Blood Pressure : / mmHG Vent. Rate : 107 BPM Atrial Rate : 156 BPM P-R Int : 000 ms QRS Dur : 116 ms QT Int : 282 ms P-R-T Axes : 000 074 233 degrees QTc Int : 376 ms Atrial fibrillation with rapid ventricular response Low voltage QRS Nonspecific ST and T wave abnormality Abnormal ECG When compared with ECG of 18-NOV-2020 12:54, No significant change was found Confirmed by Uriel Bose ([id number]) on 11/20/2020 6:21:28 AM Referred By: Luis Miguel OLGUIN Confirmed By:Uriel Bose
[2020-11-20] MEDS: ALBUT/IPRATROP 3MG/0.5MG NEB 3 ML VIAL INH SCH ×4 (07:21→19:45)
--- NOTE | 2020-11-20 08:14 | XRay Report ---
XR chest 1V portable HISTORY: 75 years-old Male resp failure acute respiratory failure COMPARISON: Chest radiograph 11/19/2020 TECHNIQUE: Portable AP view of the chest FINDINGS: Cardiac silhouette is enlarged. Left subclavian pacer. Right IJ central venous catheter distal tip te rminates in the expected location of the inferior SVC. Endotracheal tube distal tip courses to the ri ght of midline and terminates 4.4 cm superior to the luz maria. Enteric tube courses below the diaphragm outside the [id number]. No pneumothorax. Small right and trace left pleural effusions. Slightly progressed ill-defined left l nicole base densities. Interstitial coarsening with right lung predominant multifocal airspace opacities , generally stable from comparison. Degenerative changes of the shoulders and spine. IMPRESSION: 1. Lines and tubes as above. 2. Unchanged right lung airspace opacities with slightly progressed airspace opacities of the left tonja ng base. 3. Small right and trace left pleural effusions. 4. No pneumothorax. ACT 112: Negative or not required by law. The above report was generated using voice recognition software. It may contain grammatical, syntax o r spelling errors. Electronically signed by: Eduardo May M.D. 11/20/2020 8:12 AM
[2020-11-20] MEDS: POTASSIUM CHLORIDE CRTAB 20 MEQ TABCR PO SCH (08:45)
[2020-11-20] MEDS: INSULIN GLARGINE SOLOSTAR 100 UNITS/ML 3 ML PEN SC SCH ×2 (08:46→20:50)
[2020-11-20] MEDS: DOCUSATE SODIUM/SENNA 50/8.6MG TAB PO SCH (08:46)
[2020-11-20] MEDS: METOPROLOL TARTRATE 50 MG TAB PO SCH ×2 (08:46→20:54)
[2020-11-20] MEDS: methylPREDNISolone 40 MG in SYRINGE 0 ML IV SCH ×3 (08:48→20:53)
--- NOTE | 2020-11-20 09:40 | Hospitalist Progress Note ---
Date of Service November 20, 2020 Assessment & Plan (1) Acute hypoxemic respiratory failure: Quinn is a 75 year old male with a past medical history significant for small cell lung cancer treated with chemotherapy, COPD, atrial fibrillation anticoagulated with warfarin, ischemic caridomyopathy with ICD and schizophrenia presenting with dyspnea and a fib with RVR, found to have new right upper lobe consolidation. Septic Shock 2/2 bacterial PNA - pressor support with vasopressin, precedex, levophed - goal MAP > 65 - worsening cold peripheral extremities and pinpoint pupils possibly due to multiple pressors vs. worsening vascular compromise - WBC down to 9 from 14 - continuing antibiotic support with vancomycin and zosyn - blood cultures negative at 48 hours, sputum culture w/o organisms and pinpoint growth - no fevers, but temp up to 37.6C today Acute hypoxemic hypercarbic respiratory failure secondary to bacterial pneumonia with overlying COPD and radiation pneumonitis: - Intubated and mechanically ventilated following worsening respiratory distress - breath sounds continue to be diffusely rhonchorous - mild improvement in right sided pulmonary edema and inflammation on today's CXR compared to yesterday - methylprednisolone TID Deep Vein Thrombi - initially supratherapeutic INR on admission. warfarin held, reversed with vitamin K. - US of LUE on 11/19 ordered after worsening swelling of limb. Indicative of chronic DVT + new DVT formation. - heparin drip initiated - monitor daily CBC, coagulation panel Atrial Fibrillation with RVR s/p Cardioversion - history of PAF on warfarin, electrically cardioverted in ER after becoming unstable and failure to convert with diltiazem - now requiring amiodarone drip, digoxin for rate control for persistent tachycardia - appreciate ongoing cardiology support and recommendations CHF with ischemic cardiomyopathy s/p pacemaker - BNP [id number] on admission, lasix held in setting of sepsis and pneumonia - ECHO 11/18: EF 40-45%, biatrial dilation, moderate right ventricular reduced systolic function Chronic kidney disease and electrolyte stabilization: - Cr slowly trending up to 1.33 today, decreasing UOP with concentrated urine despite multiple IV drips - continue electrolyte repletion protocol - daily bmp, maintain espinoza to monitor UOP/Kidney function Goals of care: - ongoing conversations with family member/SCI Lius Miguel regarding goals of care and code status - per palliative care note, maddi Shelley (at [phone]) is aware of his wishes and is comfortable making decisions going forward - she agrees he would want to be intubated but not for an extended period of time. - GCS 2 with poor neurologic response, prognosis guarded - will continue to follow DVT ppx: heparin drip FEN/GI: NPO, famotidine IV Code Status: DNR/DNI per palliative team's conversation with family Dispo: ICU Admission and Anticipated Discharge Date Admission Date: November 17, 2020 Supervising Physician Co-Signing Physician Notes I personally examined the patient and verified all ac points of history and exam, discussed case, and agree with decision making with Dr Richards. Ongoing intubation. Nursing notes poor urine output. Vitals noted, intubated sedated. No distress. No focal neuro deficits. Skin without pallor. Severe community-acquired pneumonia superimposed on radiation pneumonitiscontinue treatment for MRSA and Pseudomonas. Had worsening with respiratory failure requiring intubation. Continue ICU level care. Continue antibiotics Poor urine outputlikely prerenal state. Free water flushes have been started with OG tube, but for now we will give a little bit of IV fluid cautiously. A. fib with RVRfortunately no overt pulmonary edema. Rate controlled Otherwise as above Subjective intubated yesterday due to worsening hypoxia and increased work of breathing. Sedated due to increasing agitation overnight with multiple IV sites and lines in place while intubated. Review of Systems Review of Systems: Unobtainable due to endotracheal tube and Unobtainable due to reduced consciousness Physical Exam Physical Exam: VITAL SIGNS - Vital signs and nursing notes were reviewed. GENERAL - cachectic elderly male SKIN - cold, clammy. HEAD - bitemporal wasting visible EYES - small pupils, minimally reactive MOUTH/OROPHARYNX - orogastric tube inplace NECK - carotid pulses present but weak to palpation LUNGS - intubated and mechanically ventilated, rhonchorous throughout all lung siddiqi CARDIAC - regular rate and rhythm, No murmur, rubs, or gallops appreciated. ABDOMEN -soft nontender nondistended with normal bowel sounds. EXTREMITIES - poor peripheral pulses, skin is clammy and pale through, cold past elbows and knees NEUROLOGIC - GCS E1V(NT)M(1) Results & Data Results & Data ([facility]) Vital Signs (Past 12 Hours) Vital Signs Temp Pulse Resp BP Pulse Ox 11/20/20 07:56 113/71 11/20/20 07:21 37.1 C 75 116/81 11/20/20 07:20 80 23 96 11/20/20 07:00 37.1 C 75 93 11/20/20 06:21 37.2 C 77 103/78 95 11/20/20 06:10 37.2 C 93 H 94 11/20/20 06:00 37.2 C 72 90 11/20/20 05:50 37.3 C 79 88 L 11/20/20 05:40 37.3 C 75 98 11/20/20 05:30 37.3 C 67 98 11/20/20 05:21 37.3 C 75 113/82 97 11/20/20 05:20 37.3 C 70 97 11/20/20 05:10 37.3 C 71 97 11/20/20 05:00 37.3 C 74 98 11/20/20 04:56 71 25 H 99 11/20/20 04:50 37.3 C 77 98 11/20/20 04:40 37.3 C 73 96 11/20/20 04:30 37.3 C 76 97 11/20/20 04:21 37.3 C 67 112/81 98 11/20/20 04:20 37.3 C 71 97 11/20/20 04:10 37.3 C 79 97 11/20/20 04:00 37.3 C 82 96 11/20/20 03:50 37.3 C 77 97 11/20/20 03:40 37.3 C 78 96 11/20/20 03:30 37.3 C 68 98 11/20/20 03:20 37.3 C 80 119/87 98 11/20/20 03:10 37.3 C 77 96 11/20/20 03:00 37.3 C 79 98 11/20/20 02:50 37.3 C 68 96 11/20/20 02:40 37.3 C 80 97 11/20/20 02:30 37.3 C 78 95 11/20/20 02:20 37.3 C 74 102/74 97 11/20/20 02:10 37.3 C 77 96 11/20/20 02:04 83 22 93 11/20/20 02:00 37.3 C 75 97 11/20/20 01:50 37.3 C 75 90 11/20/20 01:40 37.3 C 75 98 11/20/20 01:30 37.2 C 75 92 11/20/20 01:21 37.2 C 79 94/73 L 96 11/20/20 01:20 37.2 C 73 90 11/20/20 01:10 37.2 C 83 96 11/20/20 01:00 37.2 C 81 99 11/20/20 00:50 37.2 C 82 99 11/20/20 00:40 37.3 C 84 99 11/20/20 00:30 37.3 C 78 93 11/20/20 00:21 37.3 C 70 121/85 95 11/20/20 00:20 37.3 C 80 93 11/20/20 00:10 37.3 C 85 96 11/20/20 00:00 37.3 C 83 95 11/19/20 23:50 37.2 C 85 96 11/19/20 23:40 37.2 C 88 94 11/19/20 23:30 37.2 C 93 H 94 11/19/20 23:20 37.2 C 83 104/78 96 11/19/20 23:10 37.1 C 93 H 95 11/19/20 23:00 37.1 C 96 H 93 11/19/20 22:50 37.0 C 86 95 11/19/20 22:40 37.0 C 110 H 95 11/19/20 22:30 37.0 C 116 H 82 L 11/19/20 22:21 37.0 C 99 H 97/69 L 94 11/19/20 22:20 37.0 C 90 97 11/19/20 22:15 77 26 H 98 11/19/20 22:10 37.0 C 98 H 97 11/19/20 22:00 37.0 C 89 98 11/19/20 21:50 36.9 C 82 98 Left Upper Extremity Venous Ultrasound: FINDINGS: The left internal jugular vein is patent. There is occlusive thrombus seen within the left subclavian and axillary veins, unchanged. Therefore, this is considered to be chronic. There is also thrombus seen within one of 2 brachial veins. Thrombus seen within the basilic vein from the proximal forearm to the proximal forearm. There is nonocclusive thrombus seen within a segment of the cephalic vein at the mid forearm. The ulnar and radial veins are patent. IMPRESSION: 1. Extensive chronic deep vein thrombosis within the left upper extremity as described above. 2. Thrombus seen within one of 2 brachial veins which is likely new from the prior study suggestive of acute DVT. 3. Redemonstration of the basilic vein thrombus which is likely chronic. 4. Nonocclusive thrombus within a segment of the cephalic vein which is also new from the prior study. Resident Activity Tracking Resident Involvement: Resident Care Provided Care Provided: [facility]
--- NOTE | 2020-11-20 10:51 | Critical Care Progress Note ---
Date of Service November 20, 2020 Assessment & Plan (1) Pneumonitis: (2) Acute hypoxemic respiratory failure: (3) Elevated INR: Impression: 75-year-old male with history of advanced small cell lung cancer status post radiation therapy and chemotherapy. He completed therapy in August. He was admitted to the facility in September with a pleural effusion and underwent drainage at that point time. He is now on acute hypoxemic respiratory failure secondary to pneumonia and pneumonitis. Recommendations: 1. Neurologic: Continue with Precedex and fentanyl given the patient is now intubated. 2. Respiratory: Patient is currently intubated. Continue lung protective ventilation strategy. CT chest 11/18/2020 demonstrates consolidative process and interstitial thickening throughout the right lung. There is also mucoid impaction in the right lower lobes. Small pericardial and bilateral pleural effusions noted. Patient started on IV Solu-Medrol 40 mg 3 times daily. Continue vancomycin and Zosyn. Sputum cultures pending. Will consider bronchoscopy. Etiology of the pneumonic process includes pneumonitis from chemo/radiation and/or pneumonia. 3. Cardiovascular: Atrial fibrillation with rapid ventricular response, improved cardiology is assisting in management. Amiodarone drip has been discontinued. He does have a pacemaker. Continue digoxin. Continue with p.o. metoprolol as he now has an OG tube. Holding metoprolol given ongoing hypotension. 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 Echocardiogram on 11/18/2020 demonstrated EF of 40 to 45%. Small pericardial effusion was seen. Right ventricular systolic function is mildly reduced. 4. ID: Procalcitonin was unremarkable. Again the infiltrate could represent pneumonia versus pneumonitis. Nasal MRSA is positive. Continue vancomycin and Zosyn. Blood cultures negative thus far. Sputum cultures pending. 5. Heme-onc: Holding warfarin at this time and continue with heparin drip as he had extensive left upper extremity DVTs on warfarin. Appreciate palliative care and oncology input. He has locally advanced small cell lung cancer. Overall prognosis is very poor. Palliative care has been consulted. 6. Endocrine: Glycemic control per ICU protocol 7. GI: No current issues. 8. Renal: Serum creatinine appears stable compared to prior. Replacing electrolytes to keep potassium above 4 magnesium above 2 especially in light of his atrial fibrillation. CRITICAL CARE TIME - I have personally spent 36 minutes of critical care time in the direct management of this patient. This is a life/limb threatening event. This includes time spent evaluating patient, direct bedside care, chart review, placing orders, interpretation of diagnostic studies, discussion with consultants, patient, and family members, as well as other required patient management activities. This time is exclusive of all separately billable procedures, and teaching time and separate from and in addition to any other critical care service time. (4) Chronic obstructive pulmonary disease: (5) Acute and chronic respiratory failure with hypoxia: (6) Small cell lung 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: (7) Ventilatory failure: Admission and Anticipated Discharge Date Admission Date: November 17, 2020 Subjective Patient seen and examined this morning. He is sedated with Precedex and fentanyl. He is currently on a ventilator. Requiring an FiO2 of 60% a PEEP of 8. He is on low doses of Levophed and currently on a fixed dose of vasopressin. Unresponsive to commands. Unable to obtain full review of system. Physical Exam Constitutional: + frail appearing Intubated and sedated Neck: trachea midline, no thyromegaly Respiratory: + respiratory distress and + labored breathing Auscultation: no wheezes Coarse breath sounds while on the ventilator. Cardiovascular: RRR, no murmur, no edema Gastrointestinal (Abdomen): normal bowel sounds, soft, nontender, no hepatosplenomegaly Musculoskeletal: Extremities: extremities normal to inspection Skin: no rashes, warm and dry Neurologic: Nonfocal exam Lymphatic: no cervical lymphadenopathy Results & Data Results & Data ([facility]) Vital Signs (Past 12 Hours) Vital Signs Temp Pulse Resp BP Pulse Ox 11/20/20 10:21 99.0 F 81 115/86 89 L 11/20/20 10:00 98.8 F 84 92 11/20/20 09:21 98.8 F 85 124/97 11/20/20 09:00 98.8 F 84 92 11/20/20 08:21 98.8 F 83 106/75 11/20/20 08:00 98.8 F 80 96 11/20/20 07:56 113/71 11/20/20 07:22 98.8 F 74 11/20/20 07:21 98.8 F 75 116/81 11/20/20 07:20 80 23 96 11/20/20 07:00 98.8 F 75 93 11/20/20 06:21 99.0 F 77 103/78 95 0421 06:10 99.0 F 93 H 94 11/20/20 06:00 99.0 F 72 90 11/20/20 05:50 99.1 F 79 88 L 04 05:40 99.1 F 75 98 11/20/20 05:30 99.1 F 67 98 04/1421 05:21 99.1 F 75 113/82 97 0414 05:20 99.1 F 70 97 04 05:10 99.1 F 71 97 11/20/20 05:00 99.1 F 74 98 11/20/20 04:56 71 25 H 99 11/20/20 04:50 99.1 F 77 98 11/20/20 04:40 99.1 F 73 96 04 04:30 99.1 F 76 97 11/20/20 04:21 99.1 F 67 112/81 98 11/20/20 04:20 99.1 F 71 97 11/20/20 04:10 99.1 F 79 97 11/20/20 04:00 99.1 F 82 96 11/20/20 03:50 99.1 F 77 97 11/20/20 03:40 99.1 F 78 96 11/20/20 03:30 99.1 F 68 98 04 03:20 99.1 F 80 119/87 98 11/20/20 03:10 99.1 F 77 96 11/20/20 03:00 99.1 F 79 98 11/20/20 02:50 99.1 F 68 96 11/20/20 02:40 99.1 F 80 97 1421 02:30 99.1 F 78 95 041421 02:20 99.1 F 74 102/74 97 21 02:10 99.1 F 77 96 21 02:04 83 22 93 11/20/20 02:00 99.1 F 75 97 21 01:50 99.1 F 75 90 21 01:40 99.1 F 75 98 14/21 01:30 99.0 F 75 92 21 01:21 99.0 F 79 94/73 L 96 11/20/20 01:20 99.0 F 73 90 11/20/20 01:10 99.0 F 83 96 11/20/20 01:00 99.0 F 81 99 11/20/20 00:50 99.0 F 82 99 11/20/20 00:40 99.1 F 84 99 11/20/20 00:30 99.1 F 78 93 11/20/20 00:21 99.1 F 70 121/85 95 11/20/20 00:20 99.1 F 80 93 11/20/20 00:10 99.1 F 85 96 11/20/20 00:00 99.1 F 83 95 11/19/20 23:50 99.0 F 85 96 11/19/20 23:40 99.0 F 88 94 11/19/20 23:30 99.0 F 93 H 94 11/19/20 23:20 99.0 F 83 104/78 96 11/19/20 23:10 98.8 F 93 H 95 11/19/20 23:00 98.8 F 96 H 93 11/19/20 22:50 98.6 F 86 95 I reviewed the vital signs, labs and imaging Coding Level of Care Code Critical Care 1st 30-74 mins Diagnoses Pneumonitis J18.9 Acute hypoxemic respiratory failure J96.01 Elevated INR R79.1 Chronic obstructive pulmonary disease J44.9 COPD type: unspecified COPD Acute and chronic respiratory failure with hypoxia J96.21 Small cell lung 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 C34.90 Ventilatory failure R06.89 Time Spent (min) 36 (1) Chronic obstructive pulmonary disease COPD type: unspecified COPD Qualified Code(s): J44.9 - Chronic obstructive pulmonary disease, unspecified
[2020-11-20] MEDS ORDERED: IMPACT LIQD 1.0 CAL 1,000 ML BAG OG SCH (11:15)
[2020-11-20] MEDS: VANCOMYCIN HCL 750 MG in SODIUM CHLORIDE 0.9% 250 ML IV SCH ×2 (11:36→23:52)
--- NOTE | 2020-11-20 11:45 | Cardiology Progress Note ---
Date of Service November 20, 2020 Assessment & Plan (1) Paroxysmal atrial fibrillation: (2) Atrial fibrillation with RVR: (3) Acute hypoxemic respiratory failure: (4) Cardiac pacemaker: (5) Anticoagulant long-term use: (6) SSS (sick sinus syndrome): ASSESSMENT/PLAN: 1. Paroxysmal atrial fibrillation with rapid ventricular response: He was successfully converted in the ER on 11/17/20 with DC CV and amiodarone was initiated but soon thereafter, once again developed AFib with RVR. Heart rate remained elevated despite amiodarone drip, home dose of beta-dilip, and initiation of digoxin. After he was placed on mechanical ventilation and sedated, his heart rate has improved. He has been off of amiodarone since yesterday. Beta-dilip has been held due to hypotension requiring pressors. Continue digoxin. Repeat digoxin level in approximately in 5-7 days. Continue anticoagulation for stroke risk reduction. 2. Acute hypoxemic respiratory failure: Now on mechanical ventilator. As per primary service. Being treated for pneumonia and also concern for possible pneumonitis per critical care team. 3. Sick sinus syndrome s/p Dual chamber pacemaker: Follows with Dr. Calle of electrophysiology. 4. Anticoagulation therapy: Was on Coumadin as an outpatient. I will on heparin drip. 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 5. Pericardial effusion: Small on echo. Can monitor in the future if applicable. Possibly related to his malignancy. 6. Disposition: Cardiology will continue to follow. (7) Pericardial effusion: Admission and Anticipated Discharge Date Admission Date: November 17, 2020 Subjective History was unobtainable due to patient's sedated state on mechanical vent ilation. History obtained from chart and speaking with nursing staff. Amiodarone was discontinued yesterday following intubation. His heart rate has been better controlled while sedated with less work of breathing. He has required pressors in the form of Levophed and vasopressin. Therefore, metoprolol has been held. He is receiving digoxin. Two long-term guards at the bedside. Review of systems: As above. Physical Exam Physical Exam: Gen.: Appears comfortable. Sedated on mechanical ventilator. HEENT: Anicteric sclera. Neck: No appreciable JVD. Cardiac: Irregularly irregular with normal rate. Normal S1-S2. No murmurs, rubs, or gallops. Pulmonary: Coarse breath sounds throughout the right lung field. Left lung was clear on anterior auscultation. Abdomen: Soft, nontender, nondistended, with hypoactive bowel sounds. No bruits noted. Extremities: Arterial line in right radial artery. Left radial pulse not palpable. Left upper extremity 2+ pitting edema. Trace bilateral lower extremity edema. No cyanosis. Results & Data ([facility]) Vital Signs (Past 12 Hours) Vital Signs Temp Pulse Resp BP Pulse Ox 11/20/20 11:17 80 26 H 91 11/20/20 10:21 37.2 C 81 115/86 89 L 11/20/20 10:00 37.1 C 84 92 11/20/20 09:21 37.1 C 85 124/97 11/20/20 09:00 37.1 C 84 92 11/20/20 08:21 37.1 C 83 106/75 11/20/20 08:00 37.1 C 80 96 11/20/20 07:56 113/71 11/20/20 07:22 37.1 C 74 11/20/20 07:21 37.1 C 75 116/81 11/20/20 07:20 80 23 96 11/20/20 07:00 37.1 C 75 93 11/20/20 06:21 37.2 C 77 103/78 95 11/20/20 06:10 37.2 C 93 H 94 11/20/20 06:00 37.2 C 72 90 11/20/20 05:50 37.3 C 79 88 L 11/20/20 05:40 37.3 C 75 98 11/20/20 05:30 37.3 C 67 98 11/20/20 05:21 37.3 C 75 113/82 97 11/20/20 05:20 37.3 C 70 97 11/20/20 05:10 37.3 C 71 97 11/20/20 05:00 37.3 C 74 98 11/20/20 04:56 71 25 H 99 11/20/20 04:50 37.3 C 77 98 11/20/20 04:40 37.3 C 73 96 11/20/20 04:30 37.3 C 76 97 11/20/20 04:21 37.3 C 67 112/81 98 11/20/20 04:20 37.3 C 71 97 11/20/20 04:10 37.3 C 79 97 11/20/20 04:00 37.3 C 82 96 11/20/20 03:50 37.3 C 77 97 11/20/20 03:40 37.3 C 78 96 11/20/20 03:30 37.3 C 68 98 11/20/20 03:20 37.3 C 80 119/87 98 11/20/20 03:10 37.3 C 77 96 11/20/20 03:00 37.3 C 79 98 11/20/20 02:50 37.3 C 68 96 11/20/20 02:40 37.3 C 80 97 11/20/20 02:30 37.3 C 78 95 11/20/20 02:20 37.3 C 74 102/74 97 11/20/20 02:10 37.3 C 77 96 11/20/20 02:04 83 22 93 11/20/20 02:00 37.3 C 75 97 11/20/20 01:50 37.3 C 75 90 11/20/20 01:40 37.3 C 75 98 11/20/20 01:30 37.2 C 75 92 11/20/20 01:21 37.2 C 79 94/73 L 96 11/20/20 01:20 37.2 C 73 90 11/20/20 01:10 37.2 C 83 96 11/20/20 01:00 37.2 C 81 99 11/20/20 00:50 37.2 C 82 99 11/20/20 00:40 37.3 C 84 99 11/20/20 00:30 37.3 C 78 93 11/20/20 00:21 37.3 C 70 121/85 95 11/20/20 00:20 37.3 C 80 93 11/20/20 00:10 37.3 C 85 96 11/20/20 00:00 37.3 C 83 95 11/19/20 23:50 37.2 C 85 96 Intake & Output 11/18/20 11/19/20 11/20/20 11/21/20 06:59 06:59 06:59 06:59 Intake Total 1916.72 / 1916.72 1916.940 / 9390.233 5851.401 / 2831.401 345.220 / 345.220 Output Total 2750 / 2750 1400 / 1400 725 / 725 60 / 60 Balance -833.28 / -833.28 516.940 / 079.464 2623.401 / 2106.401 285.220 / 285.220 Weight 173 lb 15.115 oz 173 lb 15.115 oz 174 lb 2.643 oz 174 lb 2.643 oz Laboratory Results Laboratory Results - last 24 hr 11/19/20 11/19/20 11/19/20 11:51 14:04 15:31 WBC RBC Hgb POC Hgb Hct POC Hct MCV MCH MCHC RDW Std Deviation RDW Coeff of Ivis Plt Count MPV Immature Gran % (Auto) Neut % (Auto) Lymph % (Auto) [place] % (Auto) Eos % (Auto) Baso % (Auto) Neut # (Auto) Lymph # (Auto) [place] # (Auto) Eos # (Auto) Baso # (Auto) Immature Gran # (Auto) PT INR APTT PTT Ratio POC pH 7.26 L 7.32 L POC pCO2 69 H 58 H POC pO2 73 L 62 L POC HCO3 31 H 30 H POC Total CO2 33 H 31 POC Base Excess 4.0 H 4.0 H POC ABG O2 Sat 91.0 89.0 L POC Sodium Sodium POC Potassium Potassium Chloride Carbon Dioxide Anion Gap BUN Creatinine Est Cr Clr Drug Dosing Est GFR ( Amer) Est GFR (Non-Af Amer) BUN/Creatinine Ratio Glucose POC Glucose 131 H POC Glucose (other) Lactate Calcium Phosphorus Magnesium Total Creatine Kinase Procalcitonin 11/19/20 11/19/20 11/19/20 15:57 16:08 17:11 WBC 15.77 H RBC 3.36 L Hgb 10.6 L POC Hgb Hct 32.0 L POC Hct MCV 95.2 MCH 31.5 MCHC 33.1 RDW Std Deviation 56.0 H RDW Coeff of Ivis 16.4 H Plt Count 184 MPV 9.6 Immature Gran % (Auto) 0.3 Neut % (Auto) 95.1 Lymph % (Auto) 3.4 [place] % (Auto) 1.0 Eos % (Auto) 0.1 Baso % (Auto) 0.1 Neut # (Auto) 15.03 H Lymph # (Auto) 0.53 L [place] # (Auto) 0.15 Eos # (Auto) 0.01 Baso # (Auto) 0.01 Immature Gran # (Auto) 0.04 H PT INR APTT PTT Ratio POC pH POC pCO2 POC pO2 POC HCO3 POC Total CO2 POC Base Excess POC ABG O2 Sat POC Sodium Sodium 139 POC Potassium Potassium 4.3 D Chloride 105 Carbon Dioxide 29 Anion Gap 5.0 BUN 28 H Creatinine 1.19 Est Cr Clr Drug Dosing 53.5 Est GFR ( Amer) 69.8 Est GFR (Non-Af Amer) 60.2 BUN/Creatinine Ratio 23.6 H Glucose 157 H POC Glucose 170 H POC Glucose (other) Lactate Calcium 7.9 L Phosphorus 3.3 Magnesium 2.1 Total Creatine Kinase 21 L Procalcitonin 11/19/20 11/19/20 11/19/20 17:11 17:24 19:52 WBC 14.87 H RBC 3.30 L Hgb 10.5 L POC Hgb Hct 31.7 L POC Hct MCV 96.1 MCH 31.8 MCHC 33.1 RDW Std Deviation 56.3 H RDW Coeff of Ivis 16.4 H Plt Count 182 MPV 9.8 Immature Gran % (Auto) 0.3 Neut % (Auto) 96.2 Lymph % (Auto) 2.2 [place] % (Auto) 1.3 Eos % (Auto) 0.0 Baso % (Auto) 0.0 Neut # (Auto) 14.31 H Lymph # (Auto) 0.33 L [place] # (Auto) 0.19 Eos # (Auto) 0.00 Baso # (Auto) 0.00 Immature Gran # (Auto) 0.04 H PT INR APTT PTT Ratio POC pH POC pCO2 POC pO2 POC HCO3 POC Total CO2 POC Base Excess POC ABG O2 Sat POC Sodium Sodium POC Potassium Potassium Chloride Carbon Dioxide Anion Gap BUN Creatinine Est Cr Clr Drug Dosing Est GFR ( Amer) Est GFR (Non-Af Amer) BUN/Creatinine Ratio Glucose POC Glucose 161 H POC Glucose (other) Lactate 1.3 Calcium Phosphorus Magnesium Total Creatine Kinase Procalcitonin 11/19/20 11/19/20 11/19/20 19:52 20:09 23:44 WBC RBC Hgb POC Hgb Hct POC Hct MCV MCH MCHC RDW Std Deviation RDW Coeff of Ivis Plt Count MPV Immature Gran % (Auto) Neut % (Auto) Lymph % (Auto) [place] % (Auto) Eos % (Auto) Baso % (Auto) Neut # (Auto) Lymph # (Auto) [place] # (Auto) Eos # (Auto) Baso # (Auto) Immature Gran # (Auto) PT 30.0 H INR 3.2 H APTT 45.8 H* PTT Ratio 1.7 POC pH POC pCO2 POC pO2 POC HCO3 POC Total CO2 POC Base Excess POC ABG O2 Sat POC Sodium Sodium POC Potassium Potassium Chloride Carbon Dioxide Anion Gap BUN Creatinine Est Cr Clr Drug Dosing Est GFR ( Amer) Est GFR (Non-Af Amer) BUN/Creatinine Ratio Glucose POC Glucose POC Glucose (other) 165 H 179 H Lactate Calcium Phosphorus Magnesium Total Creatine Kinase Procalcitonin 11/20/20 11/20/20 11/20/20 02:50 02:50 02:50 WBC 9.76 RBC 3.10 L Hgb 10.0 L POC Hgb Hct 29.4 L POC Hct MCV 94.8 MCH 32.3 MCHC 34.0 RDW Std Deviation 55.8 H RDW Coeff of Ivis 16.4 H Plt Count 168 MPV 10.1 Immature Gran % (Auto) 0.2 Neut % (Auto) 96.5 Lymph % (Auto) 2.6 [place] % (Auto) 0.7 Eos % (Auto) 0.0 Baso % (Auto) 0.0 Neut # (Auto) 9.42 H Lymph # (Auto) 0.25 L [place] # (Auto) 0.07 L Eos # (Auto) 0.00 Baso # (Auto) 0.00 Immature Gran # (Auto) 0.02 PT 35.6 H INR 3.9 H APTT 63.2 H* PTT Ratio 2.4 POC pH POC pCO2 POC pO2 POC HCO3 POC Total CO2 POC Base Excess POC ABG O2 Sat POC Sodium Sodium 138 POC Potassium Potassium 4.4 Chloride 104 Carbon Dioxide 29 Anion Gap 5.0 BUN 31 H Creatinine 1.33 Est Cr Clr Drug Dosing 47.9 Est GFR ( Amer) 61.0 Est GFR (Non-Af Amer) 52.7 BUN/Creatinine Ratio 23.2 H Glucose 172 H POC Glucose POC Glucose (other) Lactate Calcium 8.0 L Phosphorus Magnesium 2.0 Total Creatine Kinase Procalcitonin 04/14/21 04/14/21 04/14/21 02:50 02:54 04:15 WBC RBC Hgb POC Hgb 9.5 L Hct POC Hct 28 L MCV MCH MCHC RDW Std Deviation RDW Coeff of Ivis Plt Count MPV Immature Gran % (Auto) Neut % (Auto) Lymph % (Auto) [place] % (Auto) Eos % (Auto) Baso % (Auto) Neut # (Auto) Lymph # (Auto) [place] # (Auto) Eos # (Auto) Baso # (Auto) Immature Gran # (Auto) PT INR APTT PTT Ratio POC pH 7.35 POC pCO2 51 H POC pO2 76 L POC HCO3 29 H POC Total CO2 30 POC Base Excess 3.0 H POC ABG O2 Sat 94.0 POC Sodium 135 Sodium POC Potassium 4.2 Potassium Chloride Carbon Dioxide Anion Gap BUN Creatinine Est Cr Clr Drug Dosing Est GFR ( Amer) Est GFR (Non-Af Amer) BUN/Creatinine Ratio Glucose POC Glucose POC Glucose (other) 171 H Lactate Calcium Phosphorus Magnesium Total Creatine Kinase Procalcitonin 0.37 11/20/20 11/20/20 08:36 11:27 WBC RBC Hgb POC Hgb Hct POC Hct MCV MCH MCHC RDW Std Deviation RDW Coeff of Ivis Plt Count MPV Immature Gran % (Auto) Neut % (Auto) Lymph % (Auto) [place] % (Auto) Eos % (Auto) Baso % (Auto) Neut # (Auto) Lymph # (Auto) [place] # (Auto) Eos # (Auto) Baso # (Auto) Immature Gran # (Auto) PT INR APTT PTT Ratio POC pH POC pCO2 POC pO2 POC HCO3 POC Total CO2 POC Base Excess POC ABG O2 Sat POC Sodium Sodium POC Potassium Potassium Chloride Carbon Dioxide Anion Gap BUN Creatinine Est Cr Clr Drug Dosing Est GFR ( Amer) Est GFR (Non-Af Amer) BUN/Creatinine Ratio Glucose POC Glucose POC Glucose (other) 178 H 190 H Lactate Calcium Phosphorus Magnesium Total Creatine Kinase Procalcitonin Diagnostic Findings Telemetry personally reviewed: Atrial fibrillation with improved heart rate. Heart rate has been normal. No significant pauses noted. Chart reviewed. Chest x-ray 11/20/2020: Right lung airspace opacities unchanged with slight progression of left lung base opacities per Radiology. Small right and trace left pleural effusions. Left upper extremity venous Doppler 11/19/2020: Extensive chronic DVT within the left upper extremity. Likely acute DVT within brachial vein. Nonocclusive thrombus within segment of cephalic vein, likely new. Medications Administered Current Inpatient Medications Albuterol (Albut/Ipratrop 3mg/0.5mg Neb 3 Ml Vial) 3 ml INH QIDR JARRET Stop: 12/17/20 18:59 Last Admin: 11/20/20 11:24 Dose: 3 ml Documented by: Atorvastatin Calcium (Atorvastatin 20 Mg Tab) 20 mg PO HS JARRET Stop: 12/17/20 20:59 Last Admin: 11/19/20 20:04 Dose: 20 mg Documented by: Dextrose (Dextrose 50% 50 Ml Syringe) 25 - 50 ml IV UD PRN; Protocol PRN Reason: Hypoglycemia Protocol Stop: 12/18/20 00:29 Enteral Nutritional Formula (Impact Liqd 1.0 Lane 1,000 Ml Bag) 1,000 ml OG UD JARRET; Protocol Stop: 12/20/20 11:14 Fentanyl Citrate (Fentanyl Bolus From Bag) 50 mcg IV Q60M PRN PRN Reason: Pain or Agitation Stop: 12/03/20 13:49 Last Admin: 11/20/20 11:38 Dose: 50 mcg Documented by: Glucagon (Glucagon For Inj 1 Mg Vial) 1 mg SQ UD PRN; Protocol PRN Reason: Hypoglycemia Protocol Stop: 12/18/20 00:29 Glucose (Glucose 40% Gel 15 Gm Tube) 15 - 30 gm PO UD PRN; Protocol PRN Reason: Hypoglycemia Protocol Stop: 12/18/20 00:29 Glucose (Glucose 10 Tabs/Tube) 4 - 8 tabs PO UD PRN; Protocol PRN Reason: Hypoglycemia Protocol Stop: 12/18/20 00:29 Piperacillin Sod/Tazobactam (Sod 3.375 gm/ Dextrose) 115 mls @ 28.75 mls/hr IV Q8H JARRET; Protocol Stop: 11/24/20 05:59 Last Admin: 11/20/20 09:23 Dose: 28.8 mls/hr Documented by: Famotidine 20 mg/ Syringe 5 mls @ 2.5 mls/min IV Q12H JARRET Stop: 12/17/20 15:59 Last Admin: 11/20/20 03:03 Dose: 2.5 mls/min Documented by: Vancomycin HCl 750 mg/ Sodium (Chloride) 265 mls @ 200 mls/hr IV Q12H [facility] Stop: 11/25/20 00:00 Last Admin: 11/20/20 11:36 Dose: 200 mls/hr Documented by: Dexmedetomidine HCl 200 mcg/ (Sodium Chloride) 50 mls @ 9.863 mls/hr IV .Q5H5M JARRET; Protocol Stop: 11/23/20 12:29 Last Titration: 11/20/20 09:31 Dose: 0.5 mcg/kg/hr, 9.9 mls/hr Documented by: Methylprednisolone 40 mg/ (Syringe) 0.64 mls @ 1.5 mls/min IV TID [facility] Stop: 12/19/20 13:59 Last Admin: 11/20/20 08:48 Dose: 1.5 mls/min Documented by: Fentanyl Citrate (Fentanyl Drip) 1,250 mcg in 250 mls @ 15 mls/hr IV .[id number] JARRET; Protocol Stop: 12/03/20 13:49 Last Titration: 11/20/20 11:38 Dose: 25 mcg/hr, 5 mls/hr Documented by: Digoxin 125 mcg/ Syringe 10 mls @ 2 mls/min IV DAILY@1600 JARRET Stop: 12/20/20 15:59 Norepinephrine Bitartrate (Levophed/D5w) 8 mg in 508 mls @ 15.03 mls/hr IV .Q24H JARRET; Protocol Stop: 12/19/20 15:59 Last Titration: 11/20/20 11:43 Dose: 0.02 mcg/kg/min, 6 mls/hr Documented by: Heparin Sodium/Dextrose (Heparin Sodium/Dextrose) 25,000 units in 500 mls @ 16 mls/hr IV .Q24H JARRET; Protocol Stop: 12/19/20 19:29 Last Titration: 11/20/20 07:07 Dose: 800 units/hr, 16 mls/hr Documented by: Vasopressin 20 units/ Sodium (Chloride) 101 mls @ 12.12 mls/hr IV .Q8H20M JARRET Stop: 12/19/20 22:14 Last Infusion: 11/20/20 07:07 Dose: 0.04 unit/min, 12.1 mls/hr Documented by: Insulin Aspart (Insulin Aspart 100 Units/Ml 3 Ml Pen) 0 units SC Q4 JARRET; Protocol Stop: 12/18/20 00:29 Last Admin: 11/20/20 11:34 Dose: 2 units Documented by: Insulin Glargine (Insulin Glargine Solostar 100 Units/Ml 3 Ml Pen) 0 units SC BID [facility]; Protocol Stop: 12/20/20 08:59 Last Admin: 11/20/20 08:46 Dose: 10 units Documented by: Levalbuterol HCl (Levalbuterol Tartrate 15 Gm Hfa.Aer.Ad) 2 puffs INH QID PRN PRN Reason: Shortness Of Breath Stop: 12/17/20 16:11 Metoprolol Tartrate (Metoprolol Tartrate 50 Mg Tab) 50 mg PO BID [facility] Stop: 12/18/20 10:29 Last Admin: 11/20/20 08:46 Dose: Not Given Documented by: Miscellaneous (Carbohydrates For Hypoglycemia ) 15 - 30 gm PO UD PRN PRN Reason: Hypoglycemia Treatment Stop: 12/18/20 00:29 Miscellaneous Information (Vancomycin Consult Active) 1 ea N/A UD PRN PRN Reason: Consult Stop: 12/17/20 13:02 Miscellaneous Information (Piperacill/Tazobac Consult Active) 1 ea N/A UD PRN PRN Reason: Consult Stop: 12/17/20 15:59 Miscellaneous Information (Pharmacy Glycemic Mgmt Consult) 1 ea N/A UD PRN PRN Reason: Consult Stop: 12/18/20 00:24 Potassium Chloride (Potassium Chloride Crtab 20 Meq Tabcr) 20 meq PO DAILY [facility] Stop: 12/18/20 08:59 Last Admin: 11/20/20 08:45 Dose: 20 meq Documented by: Prednisone (Prednisone 10 Mg Tablet) 10 mg PO DAILY [facility] Stop: 12/18/20 08:59 Last Admin: 11/19/20 10:59 Dose: Not Given Documented by: Senna/Docusate Sodium (Docusate Sodium/Senna 50/8.6mg Tab) 2 tab PO QAM [facility] Stop: 12/18/20 08:59 Last Admin: 11/20/20 08:46 Dose: 2 tab Documented by: Sennosides (Senna 8.6 Mg Tab) 17.2 mg PO HS [facility] Stop: 12/17/20 20:59 Last Admin: 11/19/20 20:04 Dose: 17.2 mg Documented by: Sterile Water (Tube Feeding Water Flush) 100 ml OG Q4H [facility] Stop: 12/20/20 11:59 Warfarin Sodium (Warfarin Sod 2 Mg Tab) 2 mg PO DAILY@1600 [facility] Stop: 12/18/20 15:59 PG Care Time/CCT Total # of Minutes Spent Total Time Spent with Patient: Total time spent is greater than 50% in coordination of care (as documented) at patient's floor/unit and/or counseling patient: Coding Level of Care Code 23405 Subseq Hosp Care Lvl 3 Diagnoses Paroxysmal atrial fibrillation I48.0 Atrial fibrillation with RVR I48.91 Acute hypoxemic respiratory failure J96.01 Cardiac pacemaker Z95.0 Anticoagulant long-term use Z79.01 SSS (sick sinus syndrome) I49.5 Pericardial effusion I31.3
[2020-11-20] MEDS: TUBE FEEDING WATER FLUSH OG SCH ×3 (13:05→20:50)
--- NOTE | 2020-11-20 13:06 | Palliative Care Progress Note ---
Date of Service November 20, 2020 Assessment & Plan (1) Palliative care encounter: Now on vent support per his wishes. I called the infirmary at [facility]. They gave consent for me to talk with is marthaece, Kaylah Shelley at [phone]. She is his closest relative and per [facility] would be his surrogate decision maker. I talked with Kaylah about Quinn being on ventilator and the discussion that I had with him about his wishes. He has indicated that he would want to be intubated but would not want manager intermediate vent support. Kaylah supports this decision. She also tells me that she would not want him to have CPR if indicated at this time. Will change code status to DNR. Will continue current level of care and reassess over the next few days. She is comfortable with making decisions as this evolves. (2) Acute and chronic respiratory failure with hypoxia: (3) Chronic obstructive pulmonary disease: (4) Small cell lung 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: (5) Paroxysmal atrial fibrillation: (6) Atrial fibrillation with RVR: Admission and Anticipated Discharge Date Admission Date: November 17, 2020 Subjective Now intubated and sedated. Review of Systems Review of Systems: Unobtainable due to endotracheal tube Physical Exam Constitutional: + mechanically ventilated ENMT: ET tube Cardiovascular: Rate/Rhythm: regular rate and + irregularly irregular Musculoskeletal: Extremities: + muscle atrophy Skin: pale Neurologic: + obtunded Results & Data ([facility]) Vital Signs (Past 12 Hours) Vital Signs Temp Pulse Resp BP Pulse Ox 11/20/20 12:21 99.1 F 93 H 106/76 91 11/20/20 12:00 99.0 F 88 97 11/20/20 11:21 99.0 F 80 122/86 91 11/20/20 11:17 80 26 H 91 11/20/20 11:00 99.0 F 77 99 11/20/20 10:22 99.0 F 85 88 L 11/20/20 10:21 99.0 F 81 115/86 89 L 11/20/20 10:00 98.8 F 84 92 11/20/20 09:21 98.8 F 85 124/97 11/20/20 09:00 98.8 F 84 92 11/20/20 08:21 98.8 F 83 106/75 11/20/20 08:00 98.8 F 80 96 04 07:56 113/71 0421 07:22 98.8 F 74 04 07:21 98.8 F 75 116/81 0421 07:20 80 23 96 04 07:00 98.8 F 75 93 04 06:21 99.0 F 77 103/78 95 11/20/20 06:10 99.0 F 93 H 94 11/20/20 06:00 99.0 F 72 90 04 05:50 99.1 F 79 88 L 11/20/20 05:40 99.1 F 75 98 11/20/20 05:30 99.1 F 67 98 11/20/20 05:21 99.1 F 75 113/82 97 04 05:20 99.1 F 70 97 11/20/20 05:10 99.1 F 71 97 11/20/20 05:00 99.1 F 74 98 11/20/20 04:56 71 25 H 99 11/20/20 04:50 99.1 F 77 98 11/20/20 04:40 99.1 F 73 96 11/20/20 04:30 99.1 F 76 97 11/20/20 04:21 99.1 F 67 112/81 98 11/20/20 04:20 99.1 F 71 97 11/20/20 04:10 99.1 F 79 97 11/20/20 04:00 99.1 F 82 96 11/20/20 03:50 99.1 F 77 97 11/20/20 03:40 99.1 F 78 96 21 03:30 99.1 F 68 98 11/20/20 03:20 99.1 F 80 119/87 98 21 03:10 99.1 F 77 96 11/20/20 03:00 99.1 F 79 98 11/20/20 02:50 99.1 F 68 96 21 02:40 99.1 F 80 97 11/20/20 02:30 99.1 F 78 95 11/20/20 02:20 99.1 F 74 102/74 97 11/20/20 02:10 99.1 F 77 96 11/20/20 02:04 83 22 93 11/20/20 02:00 99.1 F 75 97 11/20/20 01:50 99.1 F 75 90 11/20/20 01:40 99.1 F 75 98 11/20/20 01:30 99.0 F 75 92 11/20/20 01:21 99.0 F 79 94/73 L 96 11/20/20 01:20 99.0 F 73 90 11/20/20 01:10 99.0 F 83 96 11/20/20 01:00 99.0 F 81 99 PG Care Time/CCT Total # of Minutes Spent Total Time Spent with Patient: Total time spent is greater than 50% in coordination of care (as documented) at patient's floor/unit and/or counseling patient: total time spent 40 minutes with more than 50% of time spent on ICU rounds with IDT, surrogate decision maker, code status and goals of care. Coding Level of Care Code 60032 Subseq Hosp Care Lvl 3 Diagnoses Palliative care encounter Z51.5 Acute and chronic respiratory failure with hypoxia J96.21 Chronic obstructive pulmonary disease J44.9 COPD type: unspecified COPD Small cell lung 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 C34.90 Paroxysmal atrial fibrillation I48.0 Atrial fibrillation with RVR I48.91 (1) Chronic obstructive pulmonary disease COPD type: unspecified COPD Qualified Code(s): J44.9 - Chronic obstructive pulmonary disease, unspecified
--- NOTE | 2020-11-20 14:57 | Pharmacy Report ---
Pharmacy Glycemic Short Note 2 - Date of Service November 20, 2020 - Glycemic Short BSG Results (Last 24 hours): 11/19/20 11/19/20 11/19/20 15:57 16:08 17:24 Glucose 157 H POC Glucose 170 H 161 H POC Glucose (other) 11/19/20 11/19/20 11/20/20 20:09 23:44 02:50 Glucose 172 H POC Glucose POC Glucose (other) 165 H 179 H 11/20/20 11/20/20 11/20/20 02:54 08:36 11:27 Glucose POC Glucose POC Glucose (other) 171 H 178 H 190 H OUTPATIENT ANTIDIABETIC REGIMEN: * n/a * A1c pending for AM ASSESSMENT: 11/20: * Patient reasonably well controlled over the past 24 hours on nolovog alone. However, Fasting BSG increased this morning and enteral nutrition was started. Will increase lantus scale to twice daily and tighten NovoLog coverage. 11/19 * presents with atrial fibrillation with rapid ventricular response and increasing shortness of breath with a new right upper lobe airspace opacity and supratherapeutic INR. He is receiving broad spectrum antibiotics. He does not aappear to be undergoing current treatment for diabetes per med rec, and A1c is pending for the morning. * He remains NPO and has been continued on prednisone 10mg daily, which appears to be a home medication * He received a one time dose of lantus last evening and BSGs have been acceptable today (140s-150s) on novolog only. Will add a conservative lantus scale this evening and continue NovoLog scale with tightened goal range. PLAN FOR INPATIENT GLYCEMIC CONTROL: * Hold outpatient oral diabetes medications * Basal insulin * Lantus scale BID, 0 or 10 units based on BSG-See MAR for details * Bolus insulin * NovoLog per scale ACHS or Q6hrs while NPO * Goal Range: Low 110 mg/dL - High 140 mg/dL * Correction Factor: 20 mg/dL/unit * Nutritional / Prandial insulin per carb ratio of 1 unit per 8 grams CHO consumed
[2020-11-20] MEDS: DIGOXIN 125 MCG in SYRINGE 9.5 ML IV SCH (15:56)
[2020-11-20] MEDS: NOREPINEPHRINE/D5W 8 MG/508 ML BAG IV SCH ×2 (16:14→23:23)
[2020-11-20] MEDS ORDERED: NORMOSOL-R 500 ML IV ONE (17:20)
[2020-11-20] MEDS: LACTATED RINGER'S 500 ML IV SCH (19:48)
--- NOTE | 2020-11-20 19:53 | Billing Data ---
Date of Service November 20, 2020 Coding Level of Care Code 11178 Subseq Hosp Care Lvl 2
[2020-11-20] MEDS: HEPARIN SODIUM/DEXTROSE 25,000 UNITS/500 ML BAG IV SCH (20:45)
[2020-11-20] MEDS: ATORVASTATIN 20 MG TAB PO SCH (20:53)
[2020-11-20] MEDS: SENNA 8.6 MG TAB PO SCH (20:53)
[2020-11-21] MEDS: TUBE FEEDING WATER FLUSH OG SCH ×6 (00:21→20:49)
[2020-11-21] MEDS: INSULIN ASPART 100 UNITS/ML 3 ML PEN SC SCH ×6 (00:21→21:28)
[2020-11-21] MEDS: fentaNYL DRIP 1,250 MCG/250 ML BAG IV SCH ×3 (01:20→22:22)
[2020-11-21] MEDS: PIPERACILLIN/TAZOBACTAM 3.375 GM in DEXTROSE 5% 100 ML IV SCH ×3 (01:45→18:08)
[2020-11-21] MEDS: LACTATED RINGER'S 500 ML IV SCH ×2 (01:46→08:40)
[2020-11-21] MEDS: DEXMEDETOMIDINE HCL 400 MCG in 0.9 % SODIUM CHLORIDE 96 ML IV SCH ×4 (03:29→22:45)
[2020-11-21] MEDS: FAMOTIDINE 20 MG in SYRINGE 3 ML IV SCH (04:15)
[2020-11-21 05:28] LABS: iSTAT Arterial Blood Gas HCO3 28 meg/L (19-24); iSTAT Arterial Blood Gas pCO2 50 mmHg (35-46); iSTAT Arterial Blood Gas pH 7.36 (7.35-7.45); iSTAT Arterial Blood Gas pO2 61 mmHg (80-95); iSTAT Carbon Dioxide 29 mmol/L (24-31)
[2020-11-21 05:36] LABS: Hematocrit (blood only) 26.5 % (42-52); Hemoglobin 8.6 g/dL (14.0-18.0); Immature Granulocytes # (auto) 0.03 K/uL (0.00-0.02); Immature Granulocytes % (auto) 0.3 %; Lymphocytes # (auto) 0.24 K/uL (1.2-3.4); Lymphocytes % (auto) 2.2 %; Mean Corpuscular Hgb Conc 32.5 g/dL (32-36); Mean Corpuscular Volume 95.7 fL (80-100); Mean Platelet Volume 9.7 fL (7.4-10.4); Monocytes # (auto) 0.28 K/uL (0.11-0.59); Monocytes % (auto) 2.6 %; Neutrophils # (auto) 10.25 K/uL (1.4-6.5); Neutrophils % (auto) 94.9 %; Platelet Count 173 K/uL (130-400); RDW Coefficient of Variation 16.1 % (11.5-14.5); RDW Standard Deviation 55.9 fL (36.4-46.3); Red Blood Count 2.77 M/uL (4.7-6.1)
[2020-11-21 05:52] LABS: Partial Thromboplastin Ratio 2.9; Prothrombin Time 51.8 Seconds (9.0-12.0)
[2020-11-21 05:59] LABS: INR 5.9 (0.9-1.1); Partial Thromboplastin Time 77.2 Seconds (21.0-31.0)
[2020-11-21 06:12] LABS: Albumin Globulin Ratio 0.6 (0.9-2); Albumin Level 1.7 gm/dl (3.4-5.0); BUN Creatinine Ratio 25.9 (10-20); Bilirubin,Total 1.3 mg/dl (0.2-1); Calcium 7.4 mg/dl (8.5-10.1); Creatinine Clr Calc Pharmacy 47.9 ml/min; Est GFR (Non-African American) 52.7; Globulin 2.8 gm/dl (2.5-4.0); Magnesium 1.8 mg/dl (1.8-2.4); Potassium 3.6 mmol/L (3.5-5.1); Total Protein 4.5 gm/dl (6.4-8.2)
[2020-11-21] MEDS ORDERED: POTASSIUM CHLORIDE 20 MEQ/15 ML UDC PO STA (06:25)
[2020-11-21] MEDS: ALBUT/IPRATROP 3MG/0.5MG NEB 3 ML VIAL INH SCH ×4 (07:20→20:00)
[2020-11-21] MEDS ORDERED: MAGNESIUM SULFATE / D5W 1 GM/100 ML BAG IV ONE (08:10)
[2020-11-21] MEDS ORDERED: POTASSIUM CHLORIDE / WTR 10 MEQ/100 ML PLCT IV STA (08:10)
--- NOTE | 2020-11-21 08:22 | XRay Report ---
SINGLE VIEW CHEST CLINICAL HISTORY: Respiratory failure. FINDINGS: An AP, portable, upright chest radiograph is compared to study dated 11/20/2020 and correlat ed with chest CT dated 11/18/2020. An endotracheal tube, an enteric tube, and a right internal jugular central venous catheter are unchanged in position. A 2-lead cardiac pacemaker is again noted. The ex amination is degraded by portable technique and patient rotation. The heart is enlarged noting athero sclerotic calcification of the thoracic aorta. The pulmonary vasculature is noncongested. Advanced em physematous change is similar to previous. Multifocal airspace consolidation is again seen throughout both lungs, most confluent in the right upper and right lower lobes. There are small right and trace left pleural effusion. No pneumothorax is seen. The skeletal structures are osteopenic. The bony tho rax is grossly intact. IMPRESSION: 1. Stable lines and tubes. 2. Multifocal airspace consolidation is unchanged from yesterday. 3. Small right and trace left pleural effusions. 4. Cardiomegaly and advanced emphysema. ACT 112: Negative or not required by law. Electronically signed by: Deangelo Thacker M.D. 11/21/2020 8:21 AM
[2020-11-21] MEDS: DOCUSATE SODIUM/SENNA 50/8.6MG TAB PO SCH (08:51)
[2020-11-21] MEDS: methylPREDNISolone 40 MG in SYRINGE 0 ML IV SCH ×3 (08:53→20:49)
[2020-11-21] MEDS ORDERED: STAT IV Infusion **Titration per Protocol STA (08:57)
[2020-11-21] MEDS: INSULIN GLARGINE SOLOSTAR 100 UNITS/ML 3 ML PEN SC SCH ×2 (08:57→21:29)
[2020-11-21] MEDS ORDERED: METOPROLOL TARTRATE 50 MG TAB PO SCH (09:00)
[2020-11-21] MEDS: METOPROLOL TARTRATE 50 MG TAB PO SCH ×2 (09:01→20:48)
[2020-11-21 09:09] LABS: iSTAT Arterial Blood Gas HCO3 27 meg/L (19-24); iSTAT Arterial Blood Gas pCO2 55 mmHg (35-46); iSTAT Arterial Blood Gas pO2 57 mmHg (80-95); iSTAT Carbon Dioxide 29 mmol/L (24-31)
--- NOTE | 2020-11-21 09:27 | Critical Care Progress Note ---
Date of Service November 21, 2020 Assessment & Plan (1) Pneumonitis: (2) Acute hypoxemic respiratory failure: (3) Elevated INR: Impression: 75-year-old male with history of advanced small cell lung cancer status post radiation therapy and chemotherapy. He completed therapy in August. He was admitted to the facility in September with a pleural effusion and underwent drainage at that point time. He is now on acute hypoxemic respiratory failure secondary to pneumonia and pneumonitis. Recommendations: 1. Neurologic: Continue with Precedex and fentanyl given the patient is now intubated. 2. Respiratory: Patient is currently intubated. Continue lung protective ventilation strategy. CT chest 11/18/2020 demonstrates consolidative process and interstitial thickening throughout the right lung. There is also mucoid impaction in the right lower lobes. Small pericardial and bilateral pleural effusions noted. Patient started on IV Solu-Medrol 40 mg 3 times daily. Continue vancomycin and Zosyn. Sputum cultures pending. Will consider bronchoscopy. Etiology of the pneumonic process includes pneumonitis from chemo/radiation and/or pneumonia. 3. Cardiovascular: Atrial fibrillation with rapid ventricular response, improved cardiology is assisting in management. Amiodarone drip has been discontinued. He does have a pacemaker. Continue digoxin. Continue with p.o. metoprolol as he now has an OG tube. We will change Levophed to phenylephrine. 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 Echocardiogram on 11/18/2020 demonstrated EF of 40 to 45%. Small pericardial effusion was seen. Right van tricular systolic function is mildly reduced. 4. ID: Procalcitonin was unremarkable. Again the infiltrate could represent pneumonia versus pneumonitis. Nasal MRSA is positive. Continue vancomycin and Zosyn. Blood cultures negative thus far. Sputum cultures pending. 5. Heme-onc: Holding warfarin at this time and continue with heparin drip as he had extensive left upper extremity DVTs on warfarin. Appreciate palliative care and oncology input. He has locally advanced small cell lung cancer. Overall prognosis is very poor. Palliative care has been consulted. Hemoglobin is trending down slightly. We will recheck a hemoglobin. 6. Endocrine: Glycemic control per ICU protocol 7. GI: No current issues. 8. Renal: Serum creatinine appears stable compared to prior. CRITICAL CARE TIME - I have personally spent 33 minutes of critical care time in the direct management of this patient. This is a life/limb threatening event. This includes time spent evaluating patient, direct bedside care, chart review, placing orders, interpretation of diagnostic studies, discussion with consultants, patient, and family members, as well as other required patient management activities. This time is exclusive of all separately billable procedures, and teaching time and separate from and in addition to any other critical care service time. (4) Chronic obstructive pulmonary disease: (5) Acute and chronic respiratory failure with hypoxia: (6) Small cell lung 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: (7) Ventilatory failure: Admission and Anticipated Discharge Date Admission Date: November 17, 2020 Subjective I wean the patient's Precedex and fentanyl and perform a spontaneous breathing trial. We also checked an ABG. He had evidence of hypercapnic respiratory failure and hypoxia and thus patient was placed back on assist control. Fentanyl and Precedex were restarted. He is following commands intermittently. He is requiring 30 to 40% FiO2. Review of Systems Review of Systems: Unobtainable due to cognitive status and Unobtainable due to endotracheal tube Physical Exam Constitutional: + frail appearing Intubated and sedated Neck: trachea midline, no thyromegaly Respiratory: + respiratory distress and + labored breathing Auscultation: no wheezes Coarse breath sounds while on the ventilator. Cardiovascular: RRR, no murmur, no edema Gastrointestinal (Abdomen): normal bowel sounds, soft, nontender, no hepatosplenomegaly Musculoskeletal: Extremities: extremities normal to inspection Skin: no rashes, warm and dry Neurologic: Nonfocal exam Lymphatic: no cervical lymphadenopathy Results & Data Results & Data ([facility]) Vital Signs (Past 12 Hours) Vital Signs Temp Pulse Resp BP Pulse Ox 11/21/20 07:20 120 H 23 89 L 11/21/20 06:50 96.3 F L 103 H 90 11/21/20 06:46 96.3 F L 107 H 116/87 90 11/21/20 06:40 96.3 F L 98 H 89 L 11/21/20 06:30 96.3 F L 105 H 89 L 11/21/20 06:20 96.3 F L 106 H 91 11/21/20 06:10 96.1 F L 105 H 96 11/21/20 06:00 95.7 F L 88 97 11/21/20 05:50 96.1 F L 101 H 89 L 11/21/20 05:46 96.1 F L 109 H 125/84 90 11/21/20 05:40 96.1 F L 100 H 94 11/21/20 05:30 96.1 F L 100 H 94 11/21/20 05:20 96.1 F L 90 93 11/21/20 05:10 96.1 F L 93 H 93 11/21/20 05:00 96.1 F L 95 H 93 11/21/20 04:50 96.1 F L 96 H 92 11/21/20 04:46 96.1 F L 87 129/75 92 11/21/20 04:40 96.1 F L 106 H 91 11/21/20 04:30 96.3 F L 90 91 11/21/20 04:20 96.3 F L 87 91 11/21/20 04:10 96.3 F L 87 91 11/21/20 04:00 96.3 F L 99 H 90 11/21/20 03:50 96.4 F L 102 H 91 11/21/20 03:45 96.4 F L 103 H 125/95 92 11/21/20 03:43 88 22 92 11/21/20 03:40 96.4 F L 95 H 93 11/21/20 03:30 96.4 F L 86 95 11/21/20 03:20 96.6 F L 110 H 95 11/21/20 03:10 96.6 F L 100 H 94 11/21/20 03:00 96.6 F L 96 H 94 11/21/20 02:50 96.8 F L 98 H 94 11/21/20 02:46 96.8 F L 105 H 123/78 94 11/21/20 02:40 96.8 F L 97 H 94 11/21/20 02:30 96.8 F L 102 H 95 11/21/20 02:20 96.8 F L 101 H 95 11/21/20 02:10 97.0 F L 97 H 94 11/21/20 02:00 97.0 F L 96 H 94 11/21/20 01:50 97.0 F L 88 95 11/21/20 01:45 97.0 F L 99 H 132/93 94 11/21/20 01:40 97.0 F L 96 H 94 11/21/20 01:30 97.2 F L 100 H 94 11/21/20 01:20 97.2 F L 90 94 11/21/20 01:10 97.3 F L 89 95 11/21/20 01:00 97.3 F L 106 H 94 11/21/20 00:50 97.5 F L 93 H 94 11/21/20 00:46 97.5 F L 92 H 123/72 95 11/21/20 00:40 97.5 F L 93 H 94 11/21/20 00:30 97.5 F L 106 H 94 11/21/20 00:20 97.7 F 100 H 94 11/21/20 00:10 97.7 F 92 H 94 11/21/20 00:00 97.9 F 93 H 94 11/20/20 23:50 97.9 F 91 H 93 11/20/20 23:45 98.1 F 100 H 111/71 93 11/20/20 23:40 98.1 F 90 93 11/20/20 23:30 98.1 F 100 H 93 11/20/20 23:20 98.1 F 102 H 93 11/20/20 23:10 98.1 F 89 92 11/20/20 23:00 98.2 F 100 H 24 90 11/20/20 22:50 98.2 F 109 H 92 11/20/20 22:45 98.2 F 99 H 106/66 94 11/20/20 22:40 98.2 F 94 H 94 11/20/20 22:30 98.2 F 90 94 11/20/20 22:20 98.2 F 109 H 95 11/20/20 22:10 98.2 F 86 94 11/20/20 22:00 98.4 F 94 H 93 11/20/20 21:50 98.4 F 95 H 93 11/20/20 21:46 98.4 F 96 H 107/68 93 11/20/20 21:40 98.4 F 104 H 93 11/20/20 21:30 98.6 F 98 H 90 I reviewed the vital signs, labs and imaging. Coding Level of Care Code Critical Care 1st 30-74 mins Diagnoses Pneumonitis J18.9 Acute hypoxemic respiratory failure J96.01 Elevated INR R79.1 Chronic obstructive pulmonary disease J44.9 COPD type: unspecified COPD Acute and chronic respiratory failure with hypoxia J96.21 Small cell lung 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 C34.90 Ventilatory failure R06.89 Time Spent (min) 33 (1) Chronic obstructive pulmonary disease COPD type: unspecified COPD Qualified Code(s): J44.9 - Chronic obstructive pulmonary disease, unspecified
[2020-11-21] MEDS: PHENYLEPHRINE HCL 20 MG in DEXTROSE 5% 500 ML IV SCH ×2 (09:33→23:41)
--- NOTE | 2020-11-21 09:37 | Hospitalist Progress Note ---
Date of Service November 21, 2020 Assessment & Plan (1) Acute hypoxemic respiratory failure: Quinn is a 75 year old male with a past medical history significant for small cell lung cancer treated with chemotherapy, COPD, atrial fibrillation anticoagulated with warfarin, ischemic caridomyopathy with ICD and schizophrenia presenting with dyspnea and a fib with RVR, found to have new right upper lobe consolidation. Septic Shock 2/2 bacterial PNA - pressor support with vasopressin, precedex, levophed - goal MAP > 65 - worsening cold peripheral extremities and pinpoint pupils possibly due to multiple pressors vs. worsening vascular compromise - WBC down to 9 from 14 - continuing antibiotic support with vancomycin and zosyn - blood cultures negative at 48 hours, sputum culture w/o organisms and pinpoint growth - no fevers, but temp up to 37.6C today Acute hypoxemic hypercarbic respiratory failure secondary to bacterial pneumonia with overlying COPD and radiation pneumonitis: - Intubated and mechanically ventilated following worsening respiratory distress - breath sounds continue to be diffusely rhonchorous - mild improvement in right sided pulmonary edema and inflammation on today's CXR compared to yesterday - methylprednisolone TID Deep Vein Thrombi - initially supratherapeutic INR on admission. warfarin held, reversed with vitamin K. - US of LUE on 11/19 ordered after worsening swelling of limb. Indicative of chronic DVT + new DVT formation. - heparin drip initiated - monitor daily CBC, coagulation panel Atrial Fibrillation with RVR s/p Cardioversion - history of PAF on warfarin, electrically cardioverted in ER after becoming unstable and failure to convert with diltiazem - now requiring amiodarone drip, digoxin for rate control for persistent tachycardia - appreciate ongoing cardiology support and recommendations CHF with ischemic cardiomyopathy s/p pacemaker - BNP 79104 on admission, lasix held in setting of sepsis and pneumonia - ECHO 11/18: EF 40-45%, biatrial dilation, moderate right ventricular reduced systolic function Chronic kidney disease and electrolyte stabilization: - Cr slowly trending up to 1.33 today, decreasing UOP with concentrated urine despite multiple IV drips - continue electrolyte repletion protocol - daily bmp, maintain espinoza to monitor UOP/Kidney function Goals of care: - ongoing conversations with family member/SCI Luis Miguel regarding goals of care and code status - per palliative care note, maddi Shelley (at [phone]) is aware of his wishes and is comfortable making decisions going forward - she agrees he would want to be intubated but not for an extended period of time. - GCS 2 with poor neurologic response, prognosis guarded - will continue to follow DVT ppx: heparin drip FEN/GI: NPO, famotidine IV Code Status: DNR/DNI per palliative team's conversation with family Dispo: ICU Admission and Anticipated Discharge Date Admission Date: November 17, 2020 Results & Data Results & Data ([facility]) Vital Signs (Past 12 Hours) Vital Signs Temp Pulse Resp BP Pulse Ox 11/21/20 07:20 120 H 23 89 L 11/21/20 06:50 35.7 C L 103 H 90 11/21/20 06:46 35.7 C L 107 H 116/87 90 11/21/20 06:40 35.7 C L 98 H 89 L 11/21/20 06:30 35.7 C L 105 H 89 L 11/21/20 06:20 35.7 C L 106 H 91 11/21/20 06:10 35.6 C L 105 H 96 11/21/20 06:00 35.4 C L 88 97 11/21/20 05:50 35.6 C L 101 H 89 L 11/21/20 05:46 35.6 C L 109 H 125/84 90 11/21/20 05:40 35.6 C L 100 H 94 11/21/20 05:30 35.6 C L 100 H 94 11/21/20 05:20 35.6 C L 90 93 11/21/20 05:10 35.6 C L 93 H 93 11/21/20 05:00 35.6 C L 95 H 93 11/21/20 04:50 35.6 C L 96 H 92 11/21/20 04:46 35.6 C L 87 129/75 92 11/21/20 04:40 35.6 C L 106 H 91 11/21/20 04:30 35.7 C L 90 91 11/21/20 04:20 35.7 C L 87 91 11/21/20 04:10 35.7 C L 87 91 11/21/20 04:00 35.7 C L 99 H 90 11/21/20 03:50 35.8 C L 102 H 91 11/21/20 03:45 35.8 C L 103 H 125/95 92 11/21/20 03:43 88 22 92 11/21/20 03:40 35.8 C L 95 H 93 11/21/20 03:30 35.8 C L 86 95 11/21/20 03:20 35.9 C L 110 H 95 11/21/20 03:10 35.9 C L 100 H 94 11/21/20 03:00 35.9 C L 96 H 94 11/21/20 02:50 36.0 C L 98 H 94 11/21/20 02:46 36.0 C L 105 H 123/78 94 11/21/20 02:40 36.0 C L 97 H 94 11/21/20 02:30 36.0 C L 102 H 95 11/21/20 02:20 36.0 C L 101 H 95 11/21/20 02:10 36.1 C L 97 H 94 11/21/20 02:00 36.1 C L 96 H 94 11/21/20 01:50 36.1 C L 88 95 11/21/20 01:45 36.1 C L 99 H 132/93 94 11/21/20 01:40 36.1 C L 96 H 94 11/21/20 01:30 36.2 C L 100 H 94 11/21/20 01:20 36.2 C L 90 94 11/21/20 01:10 36.3 C L 89 95 11/21/20 01:00 36.3 C L 106 H 94 11/21/20 00:50 36.4 C L 93 H 94 11/21/20 00:46 36.4 C L 92 H 123/72 95 11/21/20 00:40 36.4 C L 93 H 94 11/21/20 00:30 36.4 C L 106 H 94 11/21/20 00:20 36.5 C 100 H 94 11/21/20 00:10 36.5 C 92 H 94 11/21/20 00:00 36.6 C 93 H 94 11/20/20 23:50 36.6 C 91 H 93 11/20/20 23:45 36.7 C 100 H 111/71 93 11/20/20 23:40 36.7 C 90 93 11/20/20 23:30 36.7 C 100 H 93 11/20/20 23:20 36.7 C 102 H 93 11/20/20 23:10 36.7 C 89 92 11/20/20 23:00 36.8 C 100 H 24 90 11/20/20 22:50 36.8 C 109 H 92 11/20/20 22:45 36.8 C 99 H 106/66 94 11/20/20 22:40 36.8 C 94 H 94 11/20/20 22:30 36.8 C 90 94 11/20/20 22:20 36.8 C 109 H 95 11/20/20 22:10 36.8 C 86 94 11/20/20 22:00 36.9 C 94 H 93 11/20/20 21:50 36.9 C 95 H 93 11/20/20 21:46 36.9 C 96 H 107/68 93 11/20/20 21:40 36.9 C 104 H 93
[2020-11-21] MEDS: POTASSIUM CHLORIDE CRTAB 20 MEQ TABCR PO SCH (09:57)
[2020-11-21 10:16] LABS: Basophils # (auto) 0.01 K/uL (0-0.2); Basophils % (auto) 0.1 %; Hemoglobin 10.1 g/dL (14.0-18.0); Immature Granulocytes # (auto) 0.04 K/uL (0.00-0.02); Immature Granulocytes % (auto) 0.3 %; Lymphocytes # (auto) 0.47 K/uL (1.2-3.4); Mean Corpuscular Hemoglobin 30.1 pg (25-34); Mean Corpuscular Hgb Conc 31.6 g/dL (32-36); Mean Corpuscular Volume 95.2 fL (80-100); Mean Platelet Volume 9.9 fL (7.4-10.4); Monocytes # (auto) 0.19 K/uL (0.11-0.59); Monocytes % (auto) 1.2 %; Neutrophils # (auto) 15.15 K/uL (1.4-6.5); Neutrophils % (auto) 95.4 %; Platelet Count 228 K/uL (130-400); RDW Coefficient of Variation 16.2 % (11.5-14.5); RDW Standard Deviation 56.1 fL (36.4-46.3); Red Blood Count 3.36 M/uL (4.7-6.1); White Blood Count 15.86 K/uL (4.8-10.8)
[2020-11-21] MEDS ORDERED: VANCOMYCIN TROUGH ONE (11:30)
[2020-11-21] MEDS ORDERED: PEPTAMEN 1.5 CAL 1,000 ML BAG OG SCH (12:00)
[2020-11-21] MEDS: VANCOMYCIN HCL 750 MG in SODIUM CHLORIDE 0.9% 250 ML IV SCH (12:19)
[2020-11-21] MEDS ORDERED: LIDOCAINE HCL 2% (LOCAL) INJ 50 ML VIAL ONE (12:21)
[2020-11-21 12:41] LABS: Partial Thromboplastin Ratio 2.7
--- NOTE | 2020-11-21 12:56 | Procedure Note ---
Procedure Note: Bronchoscopy Procedure PREOPERATIVE DIAGNOSIS: Hypoxemic respiratory failure POSTOPERATIVE DIAGNOSIS: Hypoxemic respiratory failure with mucus plugging in the right lower lobe PROCEDURE PERFORMED: Flexible fiberoptic bronchoscopy with bronchial washings of the right lower lobe COMPLICATIONS: None. INDICATION: Evaluate for mucus plugging infectious etiology PROCEDURE: Consent was obtained from the patient's niece and is documented in chart as the patient is currently intubated and sedated. Continuous Precedex and fentanyl were infusing at the time of the procedure. 50 mcg bolus of fentanyl was given prior to the procedure. Bronchoscope was inserted via the endotracheal tube. Endotracheal tube was approximately 2 to 3 cm above the luz maria. The luz maria was sharp. The right mainstem bronchus was significantly deviated and narrowed. Left mainstem bronchus appeared normal. Inspection of the bilateral bronchial tree was performed with no obvious lesions seen. Very thick mucopurulent secretions were noted in the right lower lobe with impaction of the right lower lobes. Large mucous plugs were suctioned out of the right lower lobe and sent for cultures after instillation of 60 cc of saline. No active bleeding was seen. No significant mucus plugging noted in the left lung. Scope was then withdrawn to the level of the trachea. No further significant secretions were noted emanating from the left to right mainstem bronchus. Scope was then completely withdrawn. Patient was stable and tolerated the procedure well. Recommendations: Post procedure chest x-ray is pending. Bronchial washings from the right lower lobe sent for Gram stain/culture, AFB and fungal cultures. Will initiate MetaNe bs every 6 hours with duo nebs to prevent further mucous plugging.
[2020-11-21 13:01] LABS: Partial Thromboplastin Time 71.7 Seconds (21.0-31.0)
--- NOTE | 2020-11-21 13:24 | XRay Report ---
XR chest 1V portable HISTORY: 75 years-old Male post bronch/mucous plug suction RLL acute shortness of breath. Status pos t bronchoscopy COMPARISON: Chest radiograph 11/21/2020 TECHNIQUE: Portable AP view of the chest FINDINGS: Cardiomediastinal and hilar silhouettes are within normal limits. Left subclavian pacer. Calcified pl aque of the thoracic aortic arch. Unchanged positioning of the right IJ central venous catheter. Ente allie tube courses into the stomach. No pneumothorax. Small right and trace left pleural effusion. Card iomegaly with emphysema. Right greater than left multifocal consolidation is unchanged. IMPRESSION: 1. Lines and tubes as above. No pneumothorax. 2. Unchanged right greater than left airspace opacities. 3. Small right and trace left pleural effusions are stable. ACT 112: Negative or not required by law. The above report was generated using voice recognition software. It may contain grammatical, syntax o r spelling errors. Electronically signed by: Eduardo May M.D. 11/21/2020 1:23 PM
--- NOTE | 2020-11-21 14:18 | Cardiology Progress Note ---
Date of Service November 21, 2020 Assessment & Plan (1) Paroxysmal atrial fibrillation: (2) Atrial fibrillation with RVR: (3) Acute hypoxemic respiratory failure: (4) Cardiac pacemaker: (5) Anticoagulant long-term use: (6) SSS (sick sinus syndrome): ASSESSMENT/PLAN: 1. Paroxysmal atrial fibrillation with rapid ventricular response: He was successfully converted in the ER on 11/17/20 with DC CV and amiodarone was initiated but soon thereafter, once again developed AFib with RVR. Heart rate remained elevated despite amiodarone drip, home dose of beta-dilip, and initiation of digoxin. After he was placed on mechanical ventilation and sedated, his heart rate has improved. Amiodarone was discontinued on 11/19/2020 by critical care team after intubation. Beta-dilip was then held due to hypotension on pressor support. When he became more tachycardic today, heart rates improved with resumption of beta-dilip. Continue metoprolol if blood pressure tolerates and digoxin. If blood pressure does not tolerate beta- dilip, can use amiodarone for attempt at rate control if necessary. 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 Check digoxin level in the next few days. 2. Acute hypoxemic respiratory failure: Now on mechanical ventilator. As per primary service. Being treated for pneumonia and also concern for possible pneumonitis per critical care team. 3. Sick sinus syndrome s/p Dual chamber pacemaker: Follows with Dr. Calle of electrophysiology. 4. Anticoagulation therapy: Was on Coumadin as an outpatient. Currently on heparin drip. 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 5. Pericardial effusion: Small on echo. Can monitor in the future if applicable. Possibly related to his malignancy. 6. Disposition: Cardiology will continue to follow. (7) Pericardial effusion: Admission and Anticipated Discharge Date Admission Date: November 17, 2020 Subjective History was unobtainable due to patient's sedated state on mechanical ventilation. History obtained from chart. He became more tachycardic since yesterday's evaluation. Metoprolol was restarted by the critical care team and pressors were adjusted. He is now on phenylephrine. Now that metoprolol is once again being utilized, his heart rate improved. He underwent bronchoscopy today. Two care home guards at the bedside. Review of systems: As above. Physical Exam Physical Exam: Gen.: Appears comfortable. Sedated on mechanical ventilator. HEENT: Anicteric sclera. Neck: No appreciable JVD. Cardiac: Irregularly irregular with normal rate. Normal S1-S2. No murmurs, rubs , or gallops. Pulmonary: Lungs appeared clear on anterior auscultation. Abdomen: Soft, nontender, nondistended, with hypoactive bowel sounds. No bruits noted. Extremities: Arterial line in right radial artery. Left radial pulse 1+. Left upper extremity 2+ pitting edema. Trace bilateral lower extremity edema. No cyanosis. Results & Data ([facility]) Vital Signs (Past 12 Hours) Vital Signs Temp Pulse Resp BP Pulse Ox 11/21/20 11:30 69 22 95 11/21/20 09:48 35.8 C L 98 H 177/120 H 95 11/21/20 09:47 35.8 C L 101 H 181/115 H 96 11/21/20 08:46 35.5 C L 125 H 135/95 74 L 11/21/20 08:00 36.4 C L 88 177/120 H 11/21/20 07:46 35.6 C L 117 H 116/86 89 L 11/21/20 07:20 120 H 23 89 L 11/21/20 06:50 35.7 C L 103 H 90 11/21/20 06:46 35.7 C L 107 H 116/87 90 11/21/20 06:40 35.7 C L 98 H 89 L 11/21/20 06:30 35.7 C L 105 H 89 L 11/21/20 06:20 35.7 C L 106 H 91 11/21/20 06:10 35.6 C L 105 H 96 11/21/20 06:00 35.4 C L 88 97 11/21/20 05:50 35.6 C L 101 H 89 L 11/21/20 05:46 35.6 C L 109 H 125/84 90 11/21/20 05:40 35.6 C L 100 H 94 11/21/20 05:30 35.6 C L 100 H 94 11/21/20 05:20 35.6 C L 90 93 11/21/20 05:10 35.6 C L 93 H 93 11/21/20 05:00 35.6 C L 95 H 93 11/21/20 04:50 35.6 C L 96 H 92 11/21/20 04:46 35.6 C L 87 129/75 92 11/21/20 04:40 35.6 C L 106 H 91 11/21/20 04:30 35.7 C L 90 91 11/21/20 04:20 35.7 C L 87 91 11/21/20 04:10 35.7 C L 87 91 11/21/20 04:00 35.7 C L 99 H 90 11/21/20 03:50 35.8 C L 102 H 91 11/21/20 03:45 35.8 C L 103 H 125/95 92 11/21/20 03:43 88 22 92 11/21/20 03:40 35.8 C L 95 H 93 11/21/20 03:30 35.8 C L 86 95 11/21/20 03:20 35.9 C L 110 H 95 11/21/20 03:10 35.9 C L 100 H 94 11/21/20 03:00 35.9 C L 96 H 94 11/21/20 02:50 36.0 C L 98 H 94 11/21/20 02:46 36.0 C L 105 H 123/78 94 11/21/20 02:40 36.0 C L 97 H 94 11/21/20 02:30 36.0 C L 102 H 95 11/21/20 02:20 36.0 C L 101 H 95 Intake & Output 11/19/20 11/20/20 11/21/20 11/22/20 06:59 06:59 06:59 06:59 Intake Total 1916.940 / 4754.742 4250.401 / 2831.401 4253.220 / 4253.220 486.363 / 486.363 Output Total 1400 / 1400 725 / 725 740 / 740 75 / 75 Balance 516.940 / 601.828 8986.401 / 2106.401 3513.220 / 3513.220 411.363 / 411.363 Weight 173 lb 15.115 oz 174 lb 2.643 oz 181 lb 10.574 oz 181 lb 10.574 oz Laboratory Results Laboratory Results - last 24 hr 11/20/20 11/20/2011/21/21 16:05 20:20 00:15 WBC RBC Hgb Hct MCV MCH MCHC RDW Std Deviation RDW Coeff of Ivis Plt Count MPV Immature Gran % (Auto) Neut % (Auto) Lymph % (Auto) [place] % (Auto) Eos % (Auto) Baso % (Auto) Neut # (Auto) Lymph # (Auto) [place] # (Auto) Eos # (Auto) Baso # (Auto) Immature Gran # (Auto) PT INR APTT PTT Ratio POC pH POC pCO2 POC pO2 POC HCO3 POC Total CO2 POC Base Excess POC ABG O2 Sat Sodium Potassium Chloride Carbon Dioxide Anion Gap BUN Creatinine Est Cr Clr Drug Dosing Est GFR ( Amer) Est GFR (Non-Af Amer) BUN/Creatinine Ratio Glucose POC Glucose (other) 199 H 194 H 215 H Calcium Phosphorus Magnesium Total Bilirubin AST ALT Alkaline Phosphatase Total Protein Albumin Globulin Albumin/Globulin Ratio Vancomycin Trough 11/21/20 11/21/20 11/21/20 04:41 05:10 05:10 WBC 10.80 RBC 2.77 L Hgb 8.6 L Hct 26.5 L MCV 95.7 MCH 31.0 MCHC 32.5 RDW Std Deviation 55.9 H RDW Coeff of Ivis 16.1 H Plt Count 173 MPV 9.7 Immature Gran % (Auto) 0.3 Neut % (Auto) 94.9 Lymph % (Auto) 2.2 [place] % (Auto) 2.6 Eos % (Auto) 0.0 Baso % (Auto) 0.0 Neut # (Auto) 10.25 H Lymph # (Auto) 0.24 L [place] # (Auto) 0.28 Eos # (Auto) 0.00 Baso # (Auto) 0.00 Immature Gran # (Auto) 0.03 H PT 51.8 H INR 5.9 H* APTT 77.2 H* PTT Ratio 2.9 POC pH POC pCO2 POC pO2 POC HCO3 POC Total CO2 POC Base Excess POC ABG O2 Sat Sodium Potassium Chloride Carbon Dioxide Anion Gap BUN Creatinine Est Cr Clr Drug Dosing Est GFR ( Amer) Est GFR (Non-Af Amer) BUN/Creatinine Ratio Glucose POC Glucose (other) 206 H Calcium Phosphorus Magnesium Total Bilirubin AST ALT Alkaline Phosphatase Total Protein Albumin Globulin Albumin/Globulin Ratio Vancomycin Trough 11/21/20 11/21/20 11/21/20 05:10 05:10 08:52 WBC RBC Hgb Hct MCV MCH MCHC RDW Std Deviation RDW Coeff of Ivis Plt Count MPV Immature Gran % (Auto) Neut % (Auto) Lymph % (Auto) [place] % (Auto) Eos % (Auto) Baso % (Auto) Neut # (Auto) Lymph # (Auto) [place] # (Auto) Eos # (Auto) Baso # (Auto) Immature Gran # (Auto) PT INR APTT PTT Ratio POC pH 7.36 7.30 L POC pCO2 50 H 55 H POC pO2 61 L 57 L POC HCO3 28 H 27 H POC Total CO2 29 29 POC Base Excess 2.0 H 1.0 POC ABG O2 Sat 89.0 L 85.0 L Sodium 138 Potassium 3.6 D Chloride 105 Carbon Dioxide 27 Anion Gap 6.0 BUN 34 H Creatinine 1.33 Est Cr Clr Drug Dosing 47.9 Est GFR ( Amer) 61.0 Est GFR (Non-Af Amer) 52.7 BUN/Creatinine Ratio 25.9 H Glucose 197 H POC Glucose (other) Calcium 7.4 L Phosphorus 3.0 Magnesium 1.8 Total Bilirubin 1.3 H AST 5 L ALT 15 Alkaline Phosphatase 94 Total Protein 4.5 L Albumin 1.7 L Globulin 2.8 Albumin/Globulin Ratio 0.6 L Vancomycin Trough 11/21/20 11/21/20 11/21/20 08:55 09:52 12:02 WBC 15.86 H RBC 3.36 L Hgb 10.1 L Hct 32.0 L MCV 95.2 MCH 30.1 MCHC 31.6 L RDW Std Deviation 56.1 H RDW Coeff of Ivis 16.2 H Plt Count 228 MPV 9.9 Immature Gran % (Auto) 0.3 Neut % (Auto) 95.4 Lymph % (Auto) 3.0 [place] % (Auto) 1.2 Eos % (Auto) 0.0 Baso % (Auto) 0.1 Neut # (Auto) 15.15 H Lymph # (Auto) 0.47 L [place] # (Auto) 0.19 Eos # (Auto) 0.00 Baso # (Auto) 0.01 Immature Gran # (Auto) 0.04 H PT INR APTT PTT Ratio POC pH POC pCO2 POC pO2 POC HCO3 POC Total CO2 POC Base Excess POC ABG O2 Sat Sodium Potassium Chloride Carbon Dioxide Anion Gap BUN Creatinine Est Cr Clr Drug Dosing Est GFR ( Amer) Est GFR (Non-Af Amer) BUN/Creatinine Ratio Glucose POC Glucose (other) 162 H Calcium Phosphorus Magnesium Total Bilirubin AST ALT Alkaline Phosphatase Total Protein Albumin Globulin Albumin/Globulin Ratio Vancomycin Trough 20.9 11/21/20 11/21/20 12:02 12:11 WBC RBC Hgb Hct MCV MCH MCHC RDW Std Deviation RDW Coeff of Ivis Plt Count MPV Immature Gran % (Auto) Neut % (Auto) Lymph % (Auto) [place] % (Auto) Eos % (Auto) Baso % (Auto) Neut # (Auto) Lymph # (Auto) [place] # (Auto) Eos # (Auto) Baso # (Auto) Immature Gran # (Auto) PT INR APTT 71.7 H* PTT Ratio 2.7 POC pH POC pCO2 POC pO2 POC HCO3 POC Total CO2 POC Base Excess POC ABG O2 Sat Sodium Potassium Chloride Carbon Dioxide Anion Gap BUN Creatinine Est Cr Clr Drug Dosing Est GFR ( Amer) Est GFR (Non-Af Amer) BUN/Creatinine Ratio Glucose POC Glucose (other) 176 H Calcium Phosphorus Magnesium Total Bilirubin AST ALT Alkaline Phosphatase Total Protein Albumin Globulin Albumin/Globulin Ratio Vancomycin Trough Diagnostic Findings Telemetry personally reviewed: Atrial fibrillation currently with normal rate. Bronchoscopy note and critical care progress notes reviewed. Bronchoscopy 11/21/2020 reported mucus plugging within the right lower lobe. Medications Administered Current Inpatient Medications Albuterol (Albut/Ipratrop 3mg/0.5mg Neb 3 Ml Vial) 3 ml INH QIDR JARRET Stop: 12/17/20 18:59 Last Admin: 11/21/20 11:32 Dose: 3 ml Documented by: Atorvastatin Calcium (Atorvastatin 20 Mg Tab) 20 mg PO HS JARRET Stop: 12/17/20 20:59 Last Admin: 11/20/20 20:53 Dose: 20 mg Documented by: Dextrose (Dextrose 50% 50 Ml Syringe) 25 - 50 ml IV UD PRN; Protocol PRN Reason: Hypoglycemia Protocol Stop: 12/18/20 00:29 Enteral Nutritional Formula (Peptamen 1.5 Lane 1,000 Ml Bag) 1,000 ml OG UD JARRET; Protocol Stop: 12/21/20 11:59 Last Admin: 11/21/20 13:35 Dose: 1,000 ml Documented by: Fentanyl Citrate (Fentanyl Bolus From Bag) 50 mcg IV Q60M PRN PRN Reason: Pain or Agitation Stop: 12/03/20 13:49 Last Admin: 11/20/20 20:26 Dose: 50 mcg Documented by: Glucagon (Glucagon For Inj 1 Mg Vial) 1 mg SQ UD PRN; Protocol PRN Reason: Hypoglycemia Protocol Stop: 12/18/20 00:29 Glucose (Glucose 40% Gel 15 Gm Tube) 15 - 30 gm PO UD PRN; Protocol PRN Reason: Hypoglycemia Protocol Stop: 12/18/20 00:29 Glucose (Glucose 10 Tabs/Tube) 4 - 8 tabs PO UD PRN; Protocol PRN Reason: Hypoglycemia Protocol Stop: 12/18/20 00:29 Heparin Sodium (Beef Lung) (Heparin 10 Unit/Ml 5 Ml Flush) 5 ml FLUSH PRN PRN PRN Reason: Flush Stop: 12/20/20 23:11 Piperacillin Sod/Tazobactam (Sod 3.375 gm/ Dextrose) 115 mls @ 28.75 mls/hr IV Q8H [facility]; Protocol Stop: 11/24/20 05:59 Last Admin: 11/21/20 09:37 Dose: 28.8 mls/hr Documented by: Vancomycin HCl 750 mg/ Sodium (Chloride) 265 mls @ 200 mls/hr IV Q12H [facility] Stop: 11/25/20 00:00 Last Admin: 11/21/20 12:19 Dose: 200 mls/hr Documented by: Methylprednisolone 40 mg/ (Syringe) 0.64 mls @ 1.5 mls/min IV TID [facility] Stop: 12/19/20 13:59 Last Admin: 11/21/20 13:35 Dose: 1.5 mls/min Documented by: Fentanyl Citrate (Fentanyl Drip) 1,250 mcg in 250 mls @ 15 mls/hr IV .[id number] [facility]; Protocol Stop: 12/03/20 13:49 Last Titration: 11/21/20 07:17 Dose: 75 mcg/hr, 15 mls/hr Documented by: Digoxin 125 mcg/ Syringe 10 mls @ 2 mls/min IV DAILY@1600 [facility] Stop: 12/20/20 15:59 Last Admin: 11/20/20 15:56 Dose: 2 mls/min Documented by: Heparin Sodium/Dextrose (Heparin Sodium/Dextrose) 25,000 units in 500 mls @ 14 mls/hr IV .Q24H [facility]; Protocol Stop: 12/19/20 19:29 Last Titration: 11/21/20 13:10 Dose: 700 units/hr, 14 mls/hr Documented by: Vasopressin 20 units/ Sodium (Chloride) 101 mls @ 0 mls/hr IV .Q0M [facility]RET Stop: 12/19/20 22:14 Last Infusion: 11/20/20 18:59 Dose: 0 unit/min, 0 mls/hr Documented by: Dexmedetomidine HCl 400 mcg/ (Sodium Chloride) 100 mls @ 13.808 mls/hr IV .Q7H15M [facility]; Protocol Stop: 11/25/20 01:14 Last Admin: 11/21/20 10:35 Dose: 0.7 mcg/kg/hr, 13.8 mls/hr Documented by: Phenylephrine HCl 20 mg/ (Dextrose) 502 mls @ 12.409 mls/hr IV .Q24H [facility]; Protocol Stop: 12/21/20 09:29 Last Titration: 11/21/20 10:22 Dose: 0.1 mcg/kg/min, 12.4 mls/hr Documented by: Famotidine 20 mg/ Syringe 5 mls @ 2.5 mls/min IV QAM [facility] Stop: 12/22/20 08:59 Insulin Aspart (Insulin Aspart 100 Units/Ml 3 Ml Pen) 0 units SC Q4 [facility]; Protocol Stop: 12/18/20 00:29 Last Admin: 11/21/20 12:24 Dose: 4 units Documented by: Insulin Glargine (Insulin Glargine Solostar 100 Units/Ml 3 Ml Pen) 0 units SC BID [facility]; Protocol Stop: 12/20/20 08:59 Last Admin: 11/21/20 08:57 Dose: 20 units Documented by: Levalbuterol HCl (Levalbuterol Tartrate 15 Gm Hfa.Aer.Ad) 2 puffs INH QID PRN PRN Reason: Shortness Of Breath Stop: 12/17/20 16:11 Metoprolol Tartrate (Metoprolol Tartrate 50 Mg Tab) 50 mg PO BID [facility] Stop: 12/18/20 10:29 Last Admin: 11/21/20 09:01 Dose: 50 mg Documented by: Miscellaneous (Carbohydrates For Hypoglycemia ) 15 - 30 gm PO UD PRN PRN Reason: Hypoglycemia Treatment Stop: 12/18/20 00:29 Miscellaneous Information (Vancomycin Consult Active) 1 ea N/A UD PRN PRN Reason: Consult Stop: 12/17/20 13:02 Miscellaneous Information (Piperacill/Tazobac Consult Active) 1 ea N/A UD PRN PRN Reason: Consult Stop: 12/17/20 15:59 Miscellaneous Information (Pharmacy Glycemic Mgmt Consult) 1 ea N/A UD PRN PRN Reason: Consult Stop: 12/18/20 00:24 Prednisone (Prednisone 10 Mg Tablet) 10 mg PO DAILY [facility] Stop: 12/18/20 08:59 Last Admin: 11/19/20 10:59 Dose: Not Given Documented by: Senna/Docusate Sodium (Docusate Sodium/Senna 50/8.6mg Tab) 2 tab PO QAM [facility] Stop: 12/18/20 08:59 Last Admin: 11/21/20 08:51 Dose: 2 tab Documented by: Sennosides (Senna 8.6 Mg Tab) 17.2 mg PO HS [facility] Stop: 12/17/20 20:59 Last Admin: 11/20/20 20:53 Dose: 17.2 mg Documented by: Sterile Water (Tube Feeding Water Flush) 175 ml OG Q4H [facility] Stop: 12/21/20 11:48 Last Admin: 11/21/20 12:23 Dose: 175 ml Documented by: Warfarin Sodium (Warfarin Sod 2 Mg Tab) 2 mg PO DAILY@1600 [facility] Stop: 12/18/20 15:59 PG Care Time/CCT Total # of Minutes Spent Total Time Spent with Patient: Total time spent is greater than 50% in coordination of care (as documented) at patient's floor/unit and/or counseling patient: Coding Level of Care Code 09724 Subseq Hosp Care Lvl 3 Diagnoses Paroxysmal atrial fibrillation I48.0 Atrial fibrillation with RVR I48.91 Acute hypoxemic respiratory failure J96.01 Cardiac pacemaker Z95.0 Anticoagulant long-term use Z79.01 SSS (sick sinus syndrome) I49.5 Pericardial effusion I31.3
--- NOTE | 2020-11-21 15:01 | Pharmacy Report ---
Pharmacy Abx Dose Short Note - Date of Service November 21, 2020 - Assessment & Plan Assessment 75 year old M receiving vancomycin for treatment of pneumonia. Staph species currently growing in sputum culture. Day # 5/7 of antimicrobial therapy. Plan Vancomycin * Trough level of 20.1 mcg/mL is slightly supratherapeutic * Change to 500 mg IV every 12 hours * Goal trough level : 15 to 20 mcg/mL * Trough or random level ordered for: 11/23/20 @1130 (in the event therapy will continue Past 7 days) Pharmacy will continue to follow and will adjust dose/frequency as necessary. Thank you.
[2020-11-21] MEDS: DIGOXIN 125 MCG in SYRINGE 9.5 ML IV SCH (16:16)
--- NOTE | 2020-11-21 18:26 | Hospitalist Progress Note ---
Date of Service November 21, 2020 Assessment & Plan (1) Ventilatory failure: Septic Shock 2/2 bacterial PNA - pressor support with vasopressin, precedex, levophed - goal MAP > 65 - worsening cold peripheral extremities and pinpoint pupils possibly due to multiple pressors vs. worsening vascular compromise - WBC down to 9 from 14 - continuing antibiotic support with vancomycin and zosyn -Continue current care and aggressive supportive care Acute hypoxemic hypercarbic respiratory failure secondary to bacterial pneumonia with overlying COPD and radiation pneumonitis: - Intubated and mechanically ventilated following worsening respiratory distress -As above Deep Vein Thrombi - initially supratherapeutic INR on admission. warfarin held, reversed with vitamin K. - US of LUE on 11/19 ordered after worsening swelling of limb. Indicative of chronic DVT + new DVT formation. -Continue heparin Atrial Fibrillation with RVR s/p Cardioversion -Rate controlled, anticoagulated CHF with ischemic cardiomyopathy s/p pacemaker - BNP 29945 on admission, lasix held in setting of sepsis and pneumonia - ECHO 11/18: EF 40-45%, biatrial dilation, moderate right ventricular reduced systolic function Chronic kidney disease and electrolyte stabilization: -Follow, anticipate trending kidney function on par with trend and hemodynamic status Goals of care: - ongoing conversations with family member/SCI Luis Miguel regarding goals of care and code status - per palliative care note, maddi Shelley (at [phone]) is aware of his wishes and is comfortable making decisions going forward - she agrees he would want to be intubated but not for an extended period of time. DVT ppx: heparin drip FEN/GI: NPO, famotidine IV Code Status: DNR/DNI per palliative team's conversation with family Dispo: ICU Admission and Anticipated Discharge Date Admission Date: November 17, 2020 Subjective No HPI or review of systems obtainable from patient. Intubated sedated Review of Systems Review of Systems: Unobtainable due to cognitive status Physical Exam Physical Exam: Intubated sedated no distress. Even chest rise and fall. Skin no rashes, pallor, icterus. Results & Data Results & Data ([facility]) Vital Signs (Past 12 Hours) Vital Signs Temp Pulse Pulse Resp BP Pulse Ox 11/21/20 16:30 72 72 23 90 11/21/20 16:16 99 H 11/21/20 16:00 99 H 11/21/20 12:00 99 H 11/21/20 11:30 69 22 95 11/21/20 09:48 96.4 F L 98 H 177/120 H 95 11/21/20 09:47 96.4 F L 101 H 181/115 H 96 11/21/20 08:46 95.9 F L 125 H 135/95 74 L 11/21/20 08:00 97.5 F L 88 177/120 H 11/21/20 07:46 96.1 F L 117 H 116/86 89 L 11/21/20 07:20 120 H 23 89 L 11/21/20 06:50 96.3 F L 103 H 90 11/21/20 06:46 96.3 F L 107 H 116/87 90 11/21/20 06:40 96.3 F L 98 H 89 L 11/21/20 06:30 96.3 F L 105 H 89 L PG Care Time/CCT Total # of Minutes Spent Total Time Spent with Patient: Total time spent is greater than 50% in coordination of care (as documented) at patient's floor/unit and/or counseling patient: Coding Level of Care Code 56798 Subseq Hosp Care Lvl 1 Diagnoses Ventilatory failure R06.89
[2020-11-21 19:57] LABS: Partial Thromboplastin Ratio 2.5
[2020-11-21 19:58] LABS: Partial Thromboplastin Time 66.6 Seconds (21.0-31.0)
[2020-11-21] MEDS: ATORVASTATIN 20 MG TAB PO SCH (20:48)
[2020-11-21] MEDS: SENNA 8.6 MG TAB PO SCH (20:48)
[2020-11-21] MEDS: HEPARIN SODIUM/DEXTROSE 25,000 UNITS/500 ML BAG IV SCH (20:50)
[2020-11-22] MEDS: VANCOMYCIN HCL 500 MG in SODIUM CHLORIDE 0.9% 250 ML IV SCH ×2 (00:31→12:13)
[2020-11-22] MEDS: INSULIN ASPART 100 UNITS/ML 3 ML PEN SC SCH ×4 (00:31→12:07)
[2020-11-22] MEDS: TUBE FEEDING WATER FLUSH OG SCH ×5 (00:32→15:04)
[2020-11-22] MEDS: DEXMEDETOMIDINE HCL 400 MCG in 0.9 % SODIUM CHLORIDE 96 ML IV SCH ×3 (03:06→12:29)
[2020-11-22] MEDS: PIPERACILLIN/TAZOBACTAM 3.375 GM in DEXTROSE 5% 100 ML IV SCH ×3 (03:06→15:04)
[2020-11-22] MEDS: fentaNYL DRIP 1,250 MCG/250 ML BAG IV SCH ×2 (03:07→20:35)
[2020-11-22 03:18] LABS: Albumin Level 1.5 gm/dl (3.4-5.0); Calcium 6.8 mg/dl (8.5-10.1); Creatinine Clr Calc Pharmacy 61.9 ml/min; Est GFR (African American) 81.2; Est GFR (Non-African American) 70.1; Magnesium 1.6 mg/dl (1.8-2.4); Potassium 3.6 mmol/L (3.5-5.1)
[2020-11-22 03:21] LABS: Partial Thromboplastin Ratio 4.2; Prothrombin Time 59.2 Seconds (9.0-12.0)
[2020-11-22 03:22] LABS: Albumin Globulin Ratio 0.6 (0.9-2); Bilirubin,Total 0.8 mg/dl (0.2-1); Globulin 2.6 gm/dl (2.5-4.0); Phosphorus 2.6 mg/dl (2.5-4.9); Total Protein 4.1 gm/dl (6.4-8.2)
[2020-11-22 03:28] LABS: Hemoglobin 7.8 g/dL (14.0-18.0); Mean Corpuscular Hemoglobin 31.8 pg (25-34); Mean Corpuscular Hgb Conc 33.9 g/dL (32-36); Mean Corpuscular Volume 93.9 fL (80-100); Mean Platelet Volume 9.5 fL (7.4-10.4); Platelet Count 105 K/uL (130-400); RDW Coefficient of Variation 15.8 % (11.5-14.5); RDW Standard Deviation 53.4 fL (36.4-46.3); Red Blood Count 2.45 M/uL (4.7-6.1); White Blood Count 6.56 K/uL (4.8-10.8)
[2020-11-22 03:30] LABS: Acanthocytes 1+; Immature Granulocytes # (auto) 0.01 K/uL (0.00-0.02); Immature Granulocytes % (auto) 0.2 %; Lymphocytes # (auto) 0.28 K/uL (1.2-3.4); Lymphocytes % (auto) 4.3 %; Monocytes # (auto) 0.07 K/uL (0.11-0.59); Monocytes % (auto) 1.1 %; Neutrophils % (auto) 94.4 %; Platelet Estimate Decreased (Normal)
[2020-11-22 03:36] LABS: INR 6.8 (0.9-1.1); Partial Thromboplastin Time 110.8 Seconds (21.0-31.0)
[2020-11-22 04:28] LABS: iSTAT Arterial Blood Gas HCO3 26 meg/L (19-24); iSTAT Arterial Blood Gas pCO2 47 mmHg (35-46); iSTAT Arterial Blood Gas pH 7.36 (7.35-7.45); iSTAT Arterial Blood Gas pO2 69 mmHg (80-95); iSTAT Carbon Dioxide 28 mmol/L (24-31); iSTAT Hematocrit 26 % (42-52); iSTAT Hemoglobin 8.8 g/dl (14.0-18.0); iSTAT Potassium 3.9 mmol/L (3.3-5.0); iSTAT Sodium 135 mmol/L (135-144)
[2020-11-22] MEDS: POTASSIUM CHLORIDE / WTR 10 MEQ/100 ML PLCT IV SCH ×3 (04:41→06:54)
[2020-11-22] MEDS: MAGNESIUM SULFATE / D5W 1 GM/100 ML BAG IV SCH ×2 (04:41→06:37)
[2020-11-22] MEDS: ALBUT/IPRATROP 3MG/0.5MG NEB 3 ML VIAL INH SCH ×2 (07:16→11:33)
[2020-11-22 07:21] LABS: Hematocrit (blood only) 29.5 % (42-52); Hemoglobin 9.6 g/dL (14.0-18.0)
--- NOTE | 2020-11-22 07:27 | XRay Report ---
XR chest 1V portable CLINICAL HISTORY: f/u COMPARISON STUDY: Chest radiograph November 21, 2020 at 12:54 PM. FINDINGS: Tip of the endotracheal tube approximately 3 cm above the luz maria. Tip of nasogastric tube i s below the lower aspect of this image but at least within the proximal stomach. Dual-lead left subcl cortes pacemaker is noted. Right-sided central venous catheter is in place. There is no pneumothorax. Interstitial thickening persists. There are small bilateral pleural effusions. Extensive multifocal r ight lung airspace opacity persists. The appearance of the chest is unchanged. IMPRESSION: 1. Tip of endotracheal tube approximately 3 cm above the luz maria. 2. No significant change in appearance of the chest. Findings suggest multifocal pneumonia, greater w ithin the right lung, with superimposed pulmonary edema and small moderate right and small left pleur al effusions. ACT 112: Negative or not required by law. Electronically signed by: Bakari Trevino M.D. 11/22/2020 7:26 AM
[2020-11-22] MEDS: INSULIN GLARGINE SOLOSTAR 100 UNITS/ML 3 ML PEN SC SCH (08:21)
[2020-11-22] MEDS: methylPREDNISolone 40 MG in SYRINGE 0 ML IV SCH ×2 (08:32→15:04)
[2020-11-22] MEDS: DOCUSATE SODIUM/SENNA 50/8.6MG TAB PO SCH (08:32)
[2020-11-22] MEDS: METOPROLOL TARTRATE 50 MG TAB PO SCH (08:33)
[2020-11-22] MEDS ORDERED: FAMOTIDINE 20 MG in SYRINGE 3 ML IV SCH (09:00)
[2020-11-22] MEDS ORDERED: POTASSIUM CHLORIDE / WTR 10 MEQ/100 ML PLCT IV ONE (10:06)
[2020-11-22] MEDS ORDERED: PHYTONADIONE 5 MG in SODIUM CHLORIDE 0.9% 50 ML IV ONE ×2 (10:06→12:00)
[2020-11-22] MEDS ORDERED: MAGNESIUM SULFATE / D5W 1 GM/100 ML BAG IV ONE (10:06)
[2020-11-22] MEDS ORDERED: CALCIUM GLUCONATE 10% 2,000 MG in SODIUM CHLORIDE 0.9% 50 ML IV ONE (10:30)
[2020-11-22] MEDS ORDERED: FUROSEMIDE 20 MG in SYRINGE 0 ML IV ONE (10:30)
[2020-11-22] MEDS: HEPARIN SODIUM/DEXTROSE 25,000 UNITS/500 ML BAG IV SCH (10:37)
--- NOTE | 2020-11-22 11:52 | Critical Care Progress Note ---
Date of Service November 22, 2020 Assessment & Plan (1) Pneumonitis: (2) Acute hypoxemic respiratory failure: (3) Elevated INR: Impression: 75-year-old male with history of advanced small cell lung cancer status post radiation therapy and chemotherapy. He completed therapy in August. He was admitted to the facility in September with a pleural effusion and underwent drainage at that point time. He is now on acute hypoxemic respiratory failure secondary to pneumonia and pneumonitis. Recommendations: 1. Neurologic: Continue to try to wean Precedex and fentanyl as able. Fentanyl should preferably be weaned first as he can be extubated on Precedex. 2. Respiratory: Patient is currently intubated. Continue lung protective ventilation strategy. CT chest 11/18/2020 demonstrates consolidative process and interstitial thickening throughout the right lung. There is also mucoid impac tion in the right lower lobes. Small pericardial and bilateral pleural effusions noted. Patient started on IV Solu-Medrol 40 mg 3 times daily. Continue vancomycin and Zosyn. Sputum cultures demonstrated MRSA. Will consider bronchoscopy. Etiology of the pneumonic process includes pneumonitis from chemo/radiation and/or pneumonia. Bronchoscopy 11/21/2020 with evidence of large mucous plug in the right lower lobe which was suction. 3. Cardiovascular: Atrial fibrillation with rapid ventricular response, improved cardiology is assisting in management. Amiodarone drip has been discontinued. He does have a pacemaker. Continue digoxin. Continue with p.o. metoprolol as he now has an OG tube. Continue as needed phenylephrine to maintain map above 65. 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 Echocardiogram on 11/18/2020 demonstrated EF of 40 to 45%. Small pericardial effusion was seen. Right ventricular systolic function is mildly reduced. 4. ID: Sputum MRSA positive. Continue vancomycin for 10 days total. Continue Zosyn for 7 days total. Anoscopy cultures from 11/21/2020 pending. 5. Heme-onc: Holding warfarin at this time and continue with heparin drip as he had extensive left upper extremity DVTs on warfarin. INR elevated to 6.8. Will give 5 mg IV vitamin K. Appreciate palliative care and oncology input. He has locally advanced small cell lung cancer. Overall prognosis is very poor. Palliative care is following the patient. Hemoglobin is trending down slightly. We will recheck a hemoglobin. 6. Endocrine: Glycemic control per ICU protocol 7. GI: No current issues. 8. Renal: Serum creatinine appears stable compared to prior. Overall prognosis very poor. Spoke with Dr. Lopez. She is going to get in touch with the niece regarding possible palliative extubation and comfort measures only. CRITICAL CARE TIME - I have personally spent 34 minutes of critical care time in the direct management of this patient. This is a life/limb threatening event. This includes time spent evaluating patient, direct bedside care, chart review, placing orders, interpretation of diagnostic studies, discussion with consultants, patient, and family members, as well as other required patient management activities. This time is exclusive of all separately billable procedures, and teaching time and separate from and in addition to any other critical care service time. (4) Chronic obstructive pulmonary disease: (5) Acute and chronic respiratory failure with hypoxia: (6) Small cell lung 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: (7) Ventilatory failure: (8) Mucus plugging of bronchi: (9) Supratherapeutic INR: Admission and Anticipated Discharge Date Admission Date: November 17, 2020 Subjective Patient seen and examined this morning. Continues to be sedated with Precedex and fentanyl. Very agitated when weaning sedation. Unable to respond to commands this morning. Review of systems limited. Nursing reports he was apneic on spontaneous breathing trial, but he was on sedation. Review of Systems Review of Systems: All systems reviewed & are unremarkable except as noted in HPI & below Physical Exam Constitutional: + frail appearing Intubated and sedated Neck: trachea midline, no thyromegaly Respiratory: + respiratory distress and + labored breathing Auscultation: no wheezes Coarse breath sounds while on the ventilator. Cardiovascular: RRR, no murmur, no edema Gastrointestinal (Abdomen): normal bowel sounds, soft, nontender, no hepatos plenomegaly Musculoskeletal: Extremities: extremities normal to inspection Skin: no rashes, warm and dry Neurologic: Nonfocal exam Lymphatic: no cervical lymphadenopathy Results & Data Results & Data ([facility]) Vital Signs (Past 12 Hours) Vital Signs Temp Pulse Pulse Resp BP Pulse Ox 11/22/20 11:34 78 22 98 11/22/20 07:35 22 11/22/20 07:17 83 26 H 98 11/22/20 07:10 13 97 11/22/20 06:30 95.0 F L 72 98 11/22/20 06:20 95.0 F L 70 98 11/22/20 06:12 95.0 F L 66 121/83 98 11/22/20 06:10 95.0 F L 71 98 11/22/20 06:00 95.0 F L 75 98 11/22/20 05:50 95.0 F L 76 98 11/22/20 05:40 95.0 F L 78 98 11/22/20 05:30 95.0 F L 82 97 11/22/20 05:20 95.0 F L 71 97 11/22/20 05:12 95.0 F L 69 130/92 98 11/22/20 05:10 95.0 F L 77 98 11/22/20 05:00 95.0 F L 82 97 11/22/20 04:50 95.0 F L 77 97 11/22/20 04:40 95.0 F L 86 97 11/22/20 04:30 95.0 F L 77 96 11/22/20 04:20 95.0 F L 75 95 11/22/20 04:13 95.0 F L 88 95 11/22/20 04:12 95.0 F L 82 131/99 95 11/22/20 04:10 95.0 F L 79 94 11/22/20 04:05 73 22 93 11/22/20 04:00 95.0 F L 79 93 11/22/20 03:50 95.0 F L 71 85 L 11/22/20 03:40 95.0 F L 78 96 11/22/20 03:30 95.0 F L 74 96 11/22/20 03:20 95.0 F L 73 97 11/22/20 03:12 95.0 F L 88 156/110 H 97 11/22/20 03:10 95.0 F L 79 96 11/22/20 03:00 94.8 F L 78 97 11/22/20 02:50 94.8 F L 74 96 11/22/20 02:40 94.8 F L 80 96 11/22/20 02:30 94.8 F L 73 96 11/22/20 02:20 94.8 F L 92 H 95 11/22/20 02:12 94.8 F L 77 122/92 94 11/22/20 02:10 94.8 F L 78 94 11/22/20 02:00 94.8 F L 69 96 11/22/20 01:50 94.8 F L 83 96 11/22/20 01:40 94.8 F L 89 96 11/22/20 01:30 94.8 F L 72 94 11/22/20 01:20 94.8 F L 83 90 11/22/20 01:12 94.8 F L 82 100/77 89 L 11/22/20 01:10 94.8 F L 71 91 11/22/20 01:00 94.8 F L 81 98 11/22/20 00:50 94.8 F L 80 87 L 11/22/20 00:40 94.8 F L 94 H 88 L 11/22/20 00:30 94.8 F L 83 88 L 11/22/20 00:20 94.8 F L 89 91 11/22/20 00:12 94.8 F L 77 134/93 89 L 11/22/20 00:10 95.0 F L 83 88 L 11/22/20 00:00 95.0 F L 103 H 88 L 11/21/20 23:50 95.0 F L 74 90 vital signs labs and imaging reviewed Coding Level of Care Code Critical Care 1st 30-74 mins Diagnoses Pneumonitis J18.9 Acute hypoxemic respiratory failure J96.01 Elevated INR R79.1 Chronic obstructive pulmonary disease J44.9 COPD type: unspecified COPD Acute and chronic respiratory failure with hypoxia J96.21 Small cell lung 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 C34.90 Ventilatory failure R06.89 Mucus plugging of bronchi T17.500A Supratherapeutic INR R79.1 Time Spent (min) 34 (1) Chronic obstructive pulmonary disease COPD type: unspecified COPD Qualified Code(s): J44.9 - Chronic obstructive pulmonary disease, unspecified
[2020-11-22 12:05] LABS: Partial Thromboplastin Ratio 2.5
[2020-11-22 12:06] LABS: Partial Thromboplastin Time 65.7 Seconds (21.0-31.0)
--- NOTE | 2020-11-22 12:26 | Ultrasound Report ---
RENAL ULTRASOUND HISTORY: Acute kidney injury. COMPARISON: Renal ultrasound 09/23/2020. FINDINGS: Right kidney: 11.6 cm. Mild hydronephrosis. Trace perinephric fluid. The cortex is echogenic. Left kidney: 10.5 cm. Mild hydronephrosis. The cortex is echogenic. Bladder: Moderate to severe bladder distention containing echogenic/complex fluid. There appears to b e a Rivas catheter within the base of the bladder. IMPRESSION: 1. Moderate to severe bladder distention containing echogenic/complex fluid. There is a Rivas cathete r within the base of the bladder. Findings suggest a nonfunctioning Rivas catheter. The echogenic/com plex fluid within the bladder could be secondary to stasis or a cystitis. Recommend Rivas catheter re placement with drainage of the bladder. 2. Mild bilateral hydronephrosis. This is likely due to the distended bladder. 3. This report was called/faxed to the referring physician following dictation. ACT 112: Negative or not required by law. Electronically signed by: Layton Dominguez M.D. 11/22/2020 12:24 PM
[2020-11-22] MEDS ORDERED: Nursing to Pharmacy Communication SCH (12:30)
--- NOTE | 2020-11-22 12:34 | Palliative Care Progress Note ---
Date of Service November 22, 2020 Assessment & Plan (1) Palliative care encounter: Discussed with Dr. Paredes. I spoke with his sister, Kaylah Shelley, to update on his condition. Unfortunately despite interventions, his respiratory status continues to decline. He had said that if he did not improve on the vent after a few days, he would not want to continue with vent support. With his current status and underlying COPD and lung cancer, his prognosis is very poor. His sister understands this. She is requesting that vent support be withdrawn and focus of care shifted toward emphasis on comfort. (2) Ventilatory failure: (3) Paroxysmal atrial fibrillation: (4) Chronic obstructive pulmonary disease: (5) Small cell lung 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: Admission and Anticipated Discharge Date Admission Date: November 17, 2020 Subjective Remains on vent with increased FiO2 to 50%. No improvement despite bronchoscopy yesterday. Review of Systems Review of Systems: Unobtainable due to endotracheal tube Physical Exam Constitutional: + ill appearing and + mechanically ventilated Respiratory: AC, FiO2 50%, PEEP 5 Musculoskeletal: Extremities: + muscle atrophy Skin: pale Neurologic: + obtunded Results & Data ([facility]) Vital Signs (Past 12 Hours) Vital Signs Temp Pulse Pulse Resp BP Pulse Ox 11/22/20 11:44 76 22 98 11/22/20 11:34 78 22 98 11/22/20 07:35 22 11/22/20 07:17 83 26 H 98 11/22/20 07:10 13 97 11/22/20 06:30 95.0 F L 72 98 11/22/20 06:20 95.0 F L 70 98 11/22/20 06:12 95.0 F L 66 121/83 98 11/22/20 06:10 95.0 F L 71 98 11/22/20 06:00 95.0 F L 75 98 11/22/20 05:50 95.0 F L 76 98 11/22/20 05:40 95.0 F L 78 98 11/22/20 05:30 95.0 F L 82 97 11/22/20 05:20 95.0 F L 71 97 11/22/20 05:12 95.0 F L 69 130/92 98 11/22/20 05:10 95.0 F L 77 98 11/22/20 05:00 95.0 F L 82 97 11/22/20 04:50 95.0 F L 77 97 11/22/20 04:40 95.0 F L 86 97 11/22/20 04:30 95.0 F L 77 96 11/22/20 04:20 95.0 F L 75 95 11/22/20 04:13 95.0 F L 88 95 11/22/20 04:12 95.0 F L 82 131/99 95 11/22/20 04:10 95.0 F L 79 94 11/22/20 04:05 73 22 93 11/22/20 04:00 95.0 F L 79 93 11/22/20 03:50 95.0 F L 71 85 L 11/22/20 03:40 95.0 F L 78 96 11/22/20 03:30 95.0 F L 74 96 11/22/20 03:20 95.0 F L 73 97 11/22/20 03:12 95.0 F L 88 156/110 H 97 11/22/20 03:10 95.0 F L 79 96 11/22/20 03:00 94.8 F L 78 97 11/22/20 02:50 94.8 F L 74 96 11/22/20 02:40 94.8 F L 80 96 11/22/20 02:30 94.8 F L 73 96 11/22/20 02:20 94.8 F L 92 H 95 11/22/20 02:12 94.8 F L 77 122/92 94 11/22/20 02:10 94.8 F L 78 94 11/22/20 02:00 94.8 F L 69 96 11/22/20 01:50 94.8 F L 83 96 11/22/20 01:40 94.8 F L 89 96 11/22/20 01:30 94.8 F L 72 94 11/22/20 01:20 94.8 F L 83 90 11/22/20 01:12 94.8 F L 82 100/77 89 L 11/22/20 01:10 94.8 F L 71 91 11/22/20 01:00 94.8 F L 81 98 11/22/20 00:50 94.8 F L 80 87 L 11/22/20 00:40 94.8 F L 94 H 88 L 11/22/20 00:30 94.8 F L 83 88 L PG Care Time/CCT Total # of Minutes Spent Total Time Spent with Patient: Total time spent is greater than 50% in coordination of care (as documented) at patient's floor/unit and/or counseling patient:total time spent 35 minutes with more than 50% of time spent on family update and support, goals of care, coordination of care Coding Level of Care Code 52487 Subseq Hosp Care Lvl 3 Diagnoses Palliative care encounter Z51.5 Ventilatory failure R06.89 Paroxysmal atrial fibrillation I48.0 Chronic obstructive pulmonary disease J44.9 COPD type: unspecified COPD Small cell lung 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 C34.90 (1) Chronic obstructive pulmonary disease COPD type: unspecified COPD Qualified Code(s): J44.9 - Chronic obstructive pulmonary disease, unspecified
[2020-11-22] MEDS ORDERED: ONDANSETRON 4 MG OD TAB SL PRN (13:15)
[2020-11-22] MEDS ORDERED: LORazepam 0.5 MG TAB PO PRN (13:15)
[2020-11-22] MEDS ORDERED: ATROPINE SULFATE 1% OP SOLN 5 ML BTL SL PRN (13:15)
[2020-11-22] MEDS ORDERED: LORazepam 0.5 MG/1 ML VIAL IV PRN (13:15)
[2020-11-22] MEDS ORDERED: MoRPHine SULF/NSS 250 MG/250 ML BTL IV SCH ×2 (13:15→19:34)
[2020-11-22] MEDS ORDERED: ONDANSETRON INJ 2 MG/ML 2 ML VIAL IV PRN (13:15)
[2020-11-22] MEDS ORDERED: MoRPHine SULFATE 2 MG/ML CARP IV PRN ×2 (13:15→13:34)
[2020-11-22] MEDS ORDERED: LORazepam 1 MG TAB PO PRN (13:33)
[2020-11-22] MEDS: LORazepam 1 MG/2 ML VIAL IV PRN ×2 (13:48→17:01)
[2020-11-22 14:34] VITALS: BP 93/66; TEMP 94.8; O2SAT 81
--- NOTE | 2020-11-22 16:14 | Hospitalist Progress Note ---
Date of Service November 22, 2020 Assessment & Plan (1) Acute hypoxemic respiratory failure: Quinn is a 75 year old male with a past medical history significant for small cell lung cancer treated with chemotherapy, COPD, atrial fibrillation anticoagulated with warfarin, ischemic caridomyopathy with ICD and schizophrenia presenting with dyspnea and a fib with RVR, found to have new right sided expanding lung consolidation. Septic Shock 2/2 bacterial PNA - Pressure support improved, weaning off pressors - goal MAP > 65 patient currently holding just above - continuing antibiotic support with vancomycin and zosyn - blood cultures negative at 48 hours, sputum culture w/o organisms and pinpoint growth -Patient consented for bronchoscopy and will await culture of washings - PRognosis very guarded patient's code status now DNR/DNI would not want CPR or to be reintubated if extubation fails Acute hypoxemic hypercarbic respiratory failure secondary to bacterial pneumonia with overlying COPD and radiation pneumonitis: - Intubated and mechanically ventilated following worsening respiratory distress - breath sounds continue to be diffusely rhonchorous - No significant change on today's CXR, bronchoscopy to be performed today Deep Vein Thrombi - initially supratherapeutic INR on admission. warfarin held, reversed with vitamin K. - US of LUE on 11/19 ordered after worsening swelling of limb. Indicative of ch ronic DVT + new DVT formation. - heparin drip initiated - monitor daily CBC, coagulation panel Atrial Fibrillation with RVR s/p Cardioversion - history of PAF on warfarin, electrically cardioverted in ER after becoming unstable and failure to convert with diltiazem - now requiring amiodarone drip, digoxin for rate control for persistent tachycardia - appreciate ongoing cardiology support and recommendations CHF with ischemic cardiomyopathy s/p pacemaker - BNP [id number] on admission, lasix held in setting of sepsis and pneumonia - ECHO 11/18: EF 40-45%, biatrial dilation, moderate right ventricular reduced systolic function DVT ppx: heparin drip FEN/GI: NPO, famotidine IV Code Status: DNR/DNI per palliative team's conversation with family Dispo: ICU primarily managing this patient at present Admission and Anticipated Discharge Date Admission Date: November 17, 2020 Supervising Physician Co-Signing Physician Notes I personally examined the patient and verified all ac points of history and e xam, discussed case, and agree with decision making with Dr Nunn. No HPI review of systems. Palliative input greatly appreciated. Patient for comfort care now. No distress. On vent whenever I last saw him. Sepsis/pneumonia superimposed on lung cancer and radiation pneumonitisfor comfort measures. Otherwise as above Subjective Unable to obtain due to sedation and intubation Review of Systems Review of Systems: unable to attain due to sedation and intubation Physical Exam Physical Exam: INtubated and sedated in no apparent distress, no skin breakd own, no rashes, no lower limb edema Results & Data Results & Data ([facility]) Vital Signs (Past 12 Hours) Vital Signs Temp Pulse Pulse Resp BP Pulse Ox 11/22/20 06:30 35.0 C L 72 98 11/22/20 06:20 35.0 C L 70 98 11/22/20 06:12 35.0 C L 66 121/83 98 11/22/20 06:10 35.0 C L 71 98 11/22/20 06:00 35.0 C L 75 98 11/22/20 05:50 35.0 C L 76 98 11/22/20 05:40 35.0 C L 78 98 11/22/20 05:30 35.0 C L 82 97 11/22/20 05:20 35.0 C L 71 97 11/22/20 05:12 35.0 C L 69 130/92 98 11/22/20 05:10 35.0 C L 77 98 11/22/20 05:00 35.0 C L 82 97 11/22/20 04:50 35.0 C L 77 97 11/22/20 04:40 35.0 C L 86 97 11/22/20 04:30 35.0 C L 77 96 11/22/20 04:20 35.0 C L 75 95 11/22/20 04:13 35.0 C L 88 95 11/22/20 04:12 35.0 C L 82 131/99 95 11/22/20 04:10 35.0 C L 79 94 11/22/20 04:05 73 22 93 11/22/20 04:00 35.0 C L 79 93 11/22/20 03:50 35.0 C L 71 85 L 11/22/20 03:40 35.0 C L 78 96 11/22/20 03:30 35.0 C L 74 96 11/22/20 03:20 35.0 C L 73 97 11/22/20 03:12 35.0 C L 88 156/110 H 97 11/22/20 03:10 35.0 C L 79 96 11/22/20 03:00 34.9 C L 78 97 11/22/20 02:50 34.9 C L 74 96 11/22/20 02:40 34.9 C L 80 96 11/22/20 02:30 34.9 C L 73 96 11/22/20 02:20 34.9 C L 92 H 95 11/22/20 02:12 34.9 C L 77 122/92 94 11/22/20 02:10 34.9 C L 78 94 11/22/20 02:00 34.9 C L 69 96 11/22/20 01:50 34.9 C L 83 96 11/22/20 01:40 34.9 C L 89 96 11/22/20 01:30 34.9 C L 72 94 11/22/20 01:20 34.9 C L 83 90 11/22/20 01:12 34.9 C L 82 100/77 89 L 11/22/20 01:10 34.9 C L 71 91 11/22/20 01:00 34.9 C L 81 98 11/22/20 00:50 34.9 C L 80 87 L 11/22/20 00:40 34.9 C L 94 H 88 L 11/22/20 00:30 34.9 C L 83 88 L 11/22/20 00:20 34.9 C L 89 91 11/22/20 00:12 34.9 C L 77 134/93 89 L 11/22/20 00:10 35.0 C L 83 88 L 11/22/20 00:00 35.0 C L 103 H 88 L 11/21/20 23:50 35.0 C L 74 90 11/21/20 23:40 35.0 C L 93 H 92 11/21/20 23:36 86 23 91 11/21/20 23:30 35.0 C L 81 90 11/21/20 23:27 89 11/21/20 23:20 35.0 C L 74 89 L 11/21/20 23:12 35.0 C L 94 H 158/98 H 84 L 11/21/20 23:10 35.0 C L 83 91 11/21/20 23:00 35.1 C L 83 90 11/21/20 22:50 35.1 C L 109 H 89 L 11/21/20 22:40 35.1 C L 86 89 L 11/21/20 22:30 35.1 C L 84 89 L 11/21/20 22:20 35.1 C L 100 H 89 L 11/21/20 22:12 35.1 C L 79 164/125 H 89 L 11/21/20 22:10 35.1 C L 90 89 L 11/21/20 22:00 35.1 C L 84 89 L 11/21/20 21:50 35.2 C L 78 88 L 11/21/20 21:40 35.1 C L 82 89 L 11/21/20 21:30 35.2 C L 89 89 L 11/21/20 21:20 35.2 C L 91 H 88 L 11/21/20 21:13 95 H 24 92 11/21/20 21:11 35.2 C L 88 152/103 H 88 L 11/21/20 20:07 95 H 24 92 11/21/20 20:00 95 H Resident Activity Tracking Resident Involvement: Resident Care Provided Care Provided: Adult [facility]
[2020-11-22 16:36] VITALS: PULSE 69
--- NOTE | 2020-11-22 17:11 | Billing Data ---
Date of Service November 22, 2020 Coding Level of Care Code 16003 Subseq Hosp Care Lvl 1
[2020-11-22] MEDS ORDERED: SODIUM CHLORIDE 0.9% 1000ML 1,000 ML IV SCH (19:34)
[2020-11-22] MEDS ORDERED: NALOXONE HCL 0.4 MG/1 ML VIAL/CARP IV PRN (19:34)
[2020-11-22] MEDS ORDERED: STAT IV Infusion **Titration per Protocol STA (19:34)
[2020-11-22] MEDS ORDERED: SODIUM CHLORIDE 0.9% 500 ML IV SCH (20:30)
--- NOTE | 2020-11-23 00:37 | Death Pronouncement Note ---
Date of Service November 23, 2020 Pronouncement Note Admission Date Admission Date: November 17, 2020 Contributing Factors (1) Acute hypoxemic respiratory failure: Contributing factors: Multisystem organ failure Pneumonia Additional Data Confirmation of : no pulse, no respirations, no heart sounds and pupils fixed and dilated Additional persons at bedside: other (2 [facility] guards) Attending/PCP notified?: Yes Attending physician: Joe Rene, DO Was code activated?: No disability insurance claim examiner notified?: Yes Organ bank notified?: Yes
[2020-11-23] MEDS ORDERED: VANCOMYCIN TROUGH ONE (11:30)
--- NOTE | 2020-12-02 09:29 | Discharge Summary ---
Date of Service November 23, 2020 Admission HPI Per Admitting Provider 75 YOM with past medical history of schizophrenia, dementia, COPD, Small Cell Lung Cancer, HLD, CKD, GERD, Afib on warfarin, pleural effusion, hemoptysis, Pacemaker, diastolic dysfunction. Patient brought in from [facility] this morning via EMS for dyspnea and afib with RVR. The patient states that a couple hours after awakening this morning, he go acutely short of breath, and then his heart rate started going fast. He said he felt well yesterday, and denies any fevers or chills. During the EMS ride the patient was noted with HR >150 and was given diltiazem in the rig. He arrived to the EMD hypotensive, HR 140-170 afib, cool and clammy extremities, he was emergently cardioverted which brought the patient back to rate controlled paced rhythm. There was also question of his pacemaker function which was interrogated over the phone. The EMD physician spoke with Dr. Bose as well and elected for amiodarone. The patient was hemodynamically stabilized and the hospitalist service and ICU service was notified for admission. Patient was then given 40 mg of Lasix, Magnesium replaced, CPAP/HFNC for tachypnea. In short elderly man with known lung cancer, was recently admitted in September for likely post obstructive pneumonia where he also had a thoracentesis that was transudative. His lung cancer was diagnosed in [address] Bello where he was undergoing etoposide and cisplatin and XRT therapy. His pacemaker is AAIR to DDDR with upper tracking rate of 130 with mode switch at 162, phone retrieval reportedly revealed that he has not been paced in the past 84 days, This was also interrogated during his September admission. His case today is likely multifactorial with his known pneumonitis, he has pulmonary edema, uncontrolled afib and will need supported for both. Goal will be to rate control and volume offload the patient. Obtain CT scan of the chest when stable. Replace electrolytes, Cards consult for further evaluation of his antitachycardic pacing and rhythm control. He was placed on CPAP in the EMD and RR decreased from 40's to 28, will re-evaluate his drive and minute ventilation with his support. He was oxygenating well on his ABG, CPAP should return his PaCO2 to normal. Appreciate the EMD and the ICU assistance with this patient. Principal Diagnosis lung cancer, superimposed pneumonia, all causing severe hypoxia, sepsis Discharge Exam see note completed by dr moody Discharge Data Allergies Allergy/AdvReac Type Severity Reaction Status Date / Time No Known Allergies Allergy Verified 09/30/20 01:37 Consultations 11/17/20 13:38 ED Decision to Admit Stat 11/17/20 16:12 Consult Cardiology Routine Consult Model Dresser Routine 11/18/20 08:58 Consult Oncology Routine Consult Palliative Care Routine 11/22/20 13:15 Consult Palliative Care Routine Ordered Studies 11/18/20 09:06 CT chest diagnostic wo con Urgent 11/19/20 15:56 US point of care ultrasound Urgent 11/19/20 17:36 US venous doppler UE LT Stat 11/22/20 10:06 US renal/blad retro comp Urgent Hospital Course (1) Ventilatory failure: admitted with hypoxia, sepsis/pneumonia superimposed on lung cancer --> initially managed with aggressive care including intubation/pressors - but as he failed to improve, decision was made to change to comfort measures, pt passed - see note Total Time Total Time Spent Total Time Spent (In Minutes): <30 Discharge Plan Discharge Items Patient Disposition: Coding Level of Care Code None Diagnoses Ventilatory failure R06.89
== END 2020-11-23 00:20 | disposition expired | DRG 871 ==
LOC: ED 12:19 → 1E 14:25 → SUATTDRO 14:25 → 1E 15:29 → 3W 11-22 19:34